=== PATIENT | female | born 1995 | race Caucasian/White ===

== ENCOUNTER 2019-10-05 16:17 | Emergency (ER) | payer OTHER, SELFPAY ==
--- NOTE | ~2019-10-05 | CT_ITS ---
EXAMINATION: CT abdomen pelvis w con DATE: 10/05/2019 17:45 INDICATION: Generalized abdominal pain TECHNIQUE: Computed tomography (CT) of the abdomen and pelvis was performed with 100 cc Omnipaque 350 intravenous contrast. Automated exposure control and iterative reconstruction technique were employe lala. Exam dose: 548.12 mGy-cm total exam DLP. COMPARISON: 07/24/2016 CT abdomen pelvis 05/29/2018 obstructive series FINDINGS: The lung bases are clear. Normal heart size. No pericardial or pleural effusion. The gallbladder is present. No bile duct or pancreatic duct dilatation. The liver, spleen, pancreas, and adrenal glands and kidneys are unremarkable. No urinary tract calcul us or hydroureteronephrosis. Normal caliber of the abdominal aorta. No intraperitoneal or retroperitoneal or pelvic mass lesion or adenopathy or ascites. The uterus contains an IUD. The uterus, adnexal areas and urinary bladder are otherwise unremarkable. No bowel obstruction or intraperitoneal free air is detected. No evidence of appendicitis. Included skeletal structures are unremarkable. IMPRESSION: IUD within uterus No significant abnormality Reviewed, dictated and finalized at [facility]. Reviewed, dictated and finalized at location [facility].
[2019-10-05 16:19] VITALS: BP 136/86; PULSE 86; RESP 20; TEMP 37.3; O2SAT 99
--- NOTE | 2019-10-05 16:23 | ED.ABDPAIN ---
HPI - Abdominal Pain General Chief Complaint: Abdominal Pain Stated Complaint: DEHYDRATION, ABD PAIN Time Seen by Provider: 10/05/19 16:22 Source: patient Mode of arrival: ambulatory Limitations: no limitations History of Present Illness HPI narrative: A 23 y/o female presents to the ED with c/o diffuse ABD pain. Pt states that she has a PMHx of IBS and usually has constipation with her IBS. Today, the patient started to have ABD pain and N/V/D. She vomited 3 times today and had 2 episodes of diarrhea. She also notes that when she woke up today she had a rash on her bilateral eyelids. Pt has allergies to pine trees and acne medication, but does not state that she has been in contact with either of them recently. The rash is not itchy or painful, and it has progressively worsened throughout the day. She adds that when she has an allergic reaction it is usually sinus congestion, and she has never had a rash before. Pt reports dizziness. She states that she has gallbladder issues and her menstrual cycle is supposed to start today. Pt reports that she has had slightly higher stress in her life recently. MD elicited complaint: abdominal pain (Diffuse) Pertinent past history: constipation and other (IBS) Onset (ago): hour(s) (Today) Pain Consistency: constant Location: diffuse Associated symptoms: nausea, vomiting, diarrhea and other (Rash, dizziness) Related Data Allergies Allergy/AdvReac Type Severity Reaction Status Date / Time No Known Allergies Allergy Unverified 05/29/18 21:18 Review of Systems Review of Systems: All systems reviewed & are unremarkable except as noted in HPI and below Gastrointestinal: Gastrointestinal: Reports abdominal pain (Diffuse), Reports diarrhea, Reports nausea and Reports vomiting Integumentary/Breasts: Skin/Breast: Reports rash Neurologic: Reports dizziness PMFSH Past Medical History Medical History (Updated 10/05/19 @ 19:00 by Leilani Juárez MD) Anxiety Depression IBS (irritable bowel syndrome) Surgical History Surgical History (Updated 10/05/19 @ 16:25 by Tanika Fernández) History of tonsillectomy Social History Social History (Updated 10/05/19 @ 16:30 by Tanika Fernández) Smoking status: Never smoker Alcohol intake: current Alcohol use details: Occasional Exam Narrative: Exam Narrative: General appearance: Well-developed, well-nourished Skin: Normal color Head: Normocephalic, nontraumatic Eyes: Clear conjunctiva ENT: Oropharynx normal, ears normal, nose normal Neck: Supple, nontender Chest and respiratory: Airway patent, no respiratory distress, no accessory muscle use Heart: Regular rate/rhythm Abdomen: Soft, nontender, no organomegaly, quiet bowel sounds Vascular: Normal peripheral pulses, normal capillary refill. 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 Labs, CT abdomen and pelvis with IV contrast, UA ordered. Further plan to follow Differential Diagnosis Differential diagnosis: Likely abdominal pa
[2019-10-05 16:46] LABS: Basophils Absolute Auto 0.1 K/mm3 (0.0-0.1); Basophils Percent Auto 0.7 % (0.2-1.2); Eosinophils Absolute Auto 0.2 K/mm3 (0-0.3); Eosinophils Percent Auto 1.6 % (0-4.4); Hematocrit 43.3 % (37.0-47.0); Hemoglobin 14.3 g/dL (12.0-15.0); Immature Granulocyte Absolute 0.03 K/mm3 (0.00-0.031); Immature Granulocyte Percent A 0.3 % (0-0.5); Lymphocytes Absolute Auto 1.29 K/mm3 (0.9-3.2); Lymphocytes Percent Auto 12.6 % (18.3-44.2); Mean Corpuscular Hemoglobin 30.6 pg (26-34); Mean Corpuscular Volume 92.7 fl (80-100); Mean Platelet Volume 10.3 fl (7.4-10.4); Monocytes Absolute Auto 0.7 K/mm3 (0.1-0.6); Monocytes Percent Auto 6.4 % (2.6-8.5); Neutrophils Absolute Auto 8.1 K/mm3 (1.3-6.7); Neutrophils Percent Auto 78.4 % (45.5-73.1); Platelet Count Result 309 k/mm3 (150-375); Red Blood Count 4.67 M/mm3 (4.2-5.4); Red Cell Distribution Width 12.9 % (11.5-14.5); White Blood Count 10.3 K/mm3 (4.5-10.0)
[2019-10-05 16:57] LABS: Alanine Aminotransferase 21 U/L (4-35); Albumin Level 4.7 g/dL (3.5-5.1); Alkaline Phosphatase 113 U/L (38-126); Aspartate Amino Transferase 24 U/L (14-36); Bilirubin,Total 0.3 mg/dL (0.2-1.3); Blood Urea Nitrogen 8 mg/dL (7-17); Carbon Dioxide 24 mmol/L (22-30); Chloride 105 mmol/L (98-107); Estimated CRCL calculation 135 ml/min; Estimated Glomerular Filt Rate > 60; Glucose 93 mg/dL (65-105); Lipase 39 U/L (23-300); Potassium 4.2 mmol/L (3.4-5.0); Sodium 139 mmol/L (137-145)
[2019-10-05 17:05] LABS: Add Urine Microscopic? YES; Appearance Urine Clear (Clear); Bacteria Urine Trace /hpf; Bilirubin Urine Negative (Negative); Blood Urine Negative (Negative); Color Urine Yellow (Yellow); Glucose Urine UA Negative (Negative); Ketones Urine Negative (Negative); Leukocyte Esterase Ur Negative LEU/UL (Negative); Mucus Urine Rare /lpf; Nitrate Urine Negative (Negative); Protein Urine 2+ mg/dL (Negative); RBC Urine 0-2 /hpf (0-2); Specific Grav Ur 1.023 (1.001-1.035); Squamous Epithelial Cell Urine Rare /hpf (Few); Urobilinogen Urine Negative mg/dL (<2.0); WBC Urine 0-3 /hpf
[2019-10-05] MEDS: SODIUM CHLORIDE 0.9% IV 1,000 ML 999 ML IV CONT (17:41)
== END 2019-10-05 19:14 | disposition home or self-care (01) ==
PROVIDERS: Emergency Provider Emergency Medicine
DX: R10.84 Generalized abdominal pain (principal); K58.9 Irritable bowel syndrome, unspecified
CPT/HCPCS: 36415; 74177; 80053; 81001; 81025; 83690; 85025; 99284; J7030; Q9967

== ENCOUNTER 2020-04-27 15:42 | Outpatient (CLI) | payer OTHER, SELFPAY ==
[2020-04-27 16:03] LABS: Basophils Absolute Auto 0.1 K/mm3 (0.0-0.1); Basophils Percent Auto 0.8 % (0.2-1.2); Eosinophils Absolute Auto 0.2 K/mm3 (0-0.3); Eosinophils Percent Auto 2.9 % (0-4.4); Hematocrit 39.6 % (37.0-47.0); Hemoglobin 13.2 g/dL (12.0-15.0); Immature Granulocyte Absolute 0.02 K/mm3 (0.00-0.031); Immature Granulocyte Percent A 0.3 % (0-0.5); Immature Reticulocyte Fraction 8.7 % (3.0-15.9); Lymphocytes Absolute Auto 1.15 K/mm3 (0.9-3.2); Lymphocytes Percent Auto 17.6 % (18.3-44.2); Mean Corpuscular HGB Conc 33.3 g/dl (32-36); Mean Corpuscular Hemoglobin 30.6 pg (26-34); Mean Corpuscular Volume 91.7 fl (80-100); Mean Platelet Volume 10.2 fl (7.4-10.4); Monocytes Absolute Auto 0.5 K/mm3 (0.1-0.6); Monocytes Percent Auto 7.5 % (2.6-8.5); Neutrophils Absolute Auto 4.7 K/mm3 (1.3-6.7); Neutrophils Percent Auto 70.9 % (45.5-73.1); Platelet Count Result 261 k/mm3 (150-375); Red Blood Count 4.32 M/mm3 (4.2-5.4); Red Cell Distribution Width 12.8 % (11.5-14.5); Reticulocyte Hemoglobin Conten 35.2 pg (28.2-35.7); Reticulocyte Percent 1.69 % (0.7-4.3); Reticulocytes Absolute 0.07 B/L (32.2-175.7); White Blood Count 6.6 K/mm3 (4.5-10.0)
[2020-04-27 17:04] LABS: Iron 78 ug/dL (37-170)
[2020-04-27 17:06] LABS: Alanine Aminotransferase 15 U/L (4-35); Albumin Level 4.1 g/dL (3.5-5.1); Alkaline Phosphatase 81 U/L (38-126); Anion Gap 10 mmol/L (8-16); Aspartate Amino Transferase 17 U/L (14-36); Bilirubin,Total 0.3 mg/dL (0.2-1.3); Blood Urea Nitrogen 7 mg/dL (7-17); Calcium 9.3 mg/dL (8.4-10.2); Carbon Dioxide 22 mmol/L (22-30); Chloride 106 mmol/L (98-107); Estimated Glomerular Filt Rate > 60; Glucose 86 mg/dL (65-105); Lactate Dehydrogenase 332 U/L (313-618); Sodium 138 mmol/L (137-145)
[2020-04-27 17:16] LABS: Percent Iron Saturation 20 % (20-50)
[2020-04-27 18:14] LABS: Folic Acid 12.9 ng/mL (2.76->20)
[2020-05-03 15:58] LABS: Soluble Transferrin Receptor 1.44 mg/L (0.76-1.76)
== END 2020-04-27 15:43 | disposition home or self-care (01) ==
LOC: ANHLAB 15:44
PROVIDERS: Visit Provider Internal Medicine Hematology & Oncology
DX: D64.9 Anemia, unspecified (principal)
CPT/HCPCS: 36415; 80053; 82607; 82728; 82746; 83540; 83550; 83615; 84238; 85025; 85046

== ENCOUNTER 2020-06-08 12:44 | Outpatient (CLI) | payer OTHER, SELFPAY ==
--- NOTE | ~2020-06-08 | US_ITS ---
EXAMINATION: US thyroid EXAM DATE: 06/08/2020 13:33 INDICATION: Cold intolerance, fatigue and hypothyroidism. TECHNIQUE: Multiple grayscale and Doppler images of the thyroid were obtained (by a technologist who performed the scan) and subsequently reviewed. Individual nodules and recommendations may be reporte d in accordance with TI-RADS system as designated by the 2017 ACR White Paper TI-RADS committee. The re is no prior study for comparison. FINDINGS: The right thyroid lobe measures 4.3 x 1.5 x 2.1 cm, the left measuring 4.3 x 1.7 x 1.8 cm. There is d iffusely heterogeneous thyroid echogenicity with expected amount of vascularity. No definite focal no dule identified. IMPRESSION: 1. Mild thyromegaly. Reviewed, dictated and finalized at location [facility]. GER WEB IMPRESSION: 1. Mild thyromegaly.
[2020-06-12 06:13] LABS: Thyroid Peroxidase Antibodies 159 IU/mL (<9)
[2020-06-12 12:07] LABS: Triiodothyronine T3 Free 3.1 pg/mL (2.3-4.2)
== END 2020-06-08 12:45 | disposition home or self-care (01) ==
PROVIDERS: PCP Emergency Medicine; Visit Provider Emergency Medicine
DX: E03.9 Hypothyroidism, unspecified (principal); K59.00 Constipation, unspecified; R53.83 Other fatigue; E04.9 Nontoxic goiter, unspecified
CPT/HCPCS: 36415; 76536; 84481; 86376

== ENCOUNTER 2021-08-16 23:35 | Emergency (ER) | payer OTHER, SELFPAY ==
--- NOTE | ~2021-08-16 | CT_ITS ---
EXAMINATION: CT abdomen pelvis w con EXAM DATE: 08/17/2021 01:54 INDICATION: RLQ pain X 10 HRS. TECHNIQUE: Spiral CT of the abdomen and pelvis was performed following intravenous injection of 100 m L Omnipaque 350. Axial, coronal and sagittal images of the abdomen and pelvis were reviewed. The do se-length product (DLP) for this examination was 614.68 mGy-cm. The exposure was tailored according to patient size (auto mA exposure control), and iterative reconstruction (ASIR) was used as additiona l dose reduction technique. Comparison is made to prior examination from 10/05/2019. FINDINGS: The liver, spleen, adrenal glands and pancreas are unremarkable. Gallbladder is unremarkab le. No biliary obstruction. Portal and splenic veins are patent. Kidneys enhance symmetrically. T here is no hydronephrosis. There is IUD which appears to be centrally located within the endometriu m, expected position. The bladder is unremarkable. There is no retroperitoneal or pelvic lymphadeno pat. The appendix is normal. The stomach and small bowel are unremarkable. There is expected amount of c olonic stool. No free intraperitoneal gas. The heart is normal in size. There are no pericardial or pleural effusions. The lung bases are unremarkable. The bones are unremarkable. IMPRESSION: 1. No acute intra-abdominal findings. Reviewed, dictated and finalized at location [facility]. 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
[2021-08-16 23:41] VITALS: BP 143/67; PULSE 62; RESP 16; TEMP 36.4; O2SAT 100
--- NOTE | 2021-08-17 01:13 | ED.GENADULT ---
HPI - General Adult General Chief complaint: Abdominal Pain Stated complaint: pelvic pain since 4pm Time Seen by Provider: 08/17/21 00:46 History of Present Illness HPI narrative: Patient 25-year-old female who presents the emergency department with chief complaint of right-sided abdominal pain. Patient states that she was at work and not doing anything strenuous and had sudden onset of pain in the right lower quadrant/right lower pelvis area patient states it radiates to her back and radiates to the left lower quadrant. Patient reports that she has an IUD in place and does not have periods denies any significant change in her vaginal discharge patient denies vomiting reports that she had some loose stool yesterday but reports that she has history of IBS-C patient reports no prior abdominal surgery history Related Data Allergies Allergy/AdvReac Type Severity Reaction Status Date / Time No Known Allergies Allergy Verified 08/16/21 23:45 Review of Systems Review of Systems: A 10 system review of systems was completed on the patient and is negative except for what is stated in the HPI. Nursing and ancillary documentation was reviewed. [facility] Past Medical History Medical History Anxiety Depression IBS (irritable bowel syndrome) Surgical History Surgical History History of tonsillectomy Social History Social History Smoking status: Never smoker Alcohol intake: current Alcohol use details: Occasional Exam Narrative: GENERAL: Well-appearing, well-nourished, and in no acute distress. HEAD: Normocephalic, atraumatic. EYES: PERRLA and EOMI. ENT: Nares clear, no rhinorrhea or epistaxis. Mucous membranes moist. NECK: Supple. CHEST: Clear to auscultation. No respiratory distress. HEART: Regular rate and rhythm. No murmur heard. Normal peripheral pulses. ABDOMEN: Soft, right lower quadrant tenderness, nondistended, normal active bowel sounds. EXTREMITIES: Normal range of motion. No edema. SKIN: Warm, dry, no rash. NEURO: No focal deficits. Alert and oriented x3. PSYCH: Normal mood and affect. Course Course Emergency Course: CT scan shows no evidence of appendicitis there is evidence of diverticulosis without diverticulitis IUD is in place no large ovarian cyst Vital Signs Vital signs: Vital Signs Temperature 36.4 C 08/16/21 23:41 Pulse Rate 62 08/16/21 23:41 Respiratory Rate 16 08/16/21 23:41 Blood Pressure 143/67 H 08/16/21 23:41 Pulse Oximetry 100 08/16/21 23:41 Temperature 36.4 C 08/16/21 23:41 Pulse Rate 62 08/16/21 23:41 Respiratory Rate 16 08/16/21 23:41 Blood Pressure 143/67 H 08/16/21 23:41 Pulse Oximetry 100 08/16/21 23:41 Medical Decision Making Vital Signs Vital Signs: Vital Signs Temperature 36.4 C 08/16/21 23:41 Pulse Rate 62 08/16/21 23:41 Respiratory Rate 16 08/16/21 23:41 Blood Pressure 143/67 H 08/16/21 23:41 Pulse Oximetry 100 08/16/21 23:41 Temperature 36.4 C 08/16/21 23:41 Pulse Rate 62 08/16/21 23:41 Respiratory Rate 16 08/16/21 23:41 Blood Pressure 143/67 H 08/16/21 23:41 Pulse Oximetry 100 08/16/21 23:41 Lab Data Result diagrams: 08/17/21 01:15 08/17/21 01:15 Labs: Lab Results 08/17/21 08/17/21 08/17/21 Range/Units 01:15 01:15 01:15 WBC 10.4 H (4.5-10.0) K/mm3 RBC 4.63 (4.2-5.4) M/mm3 Hgb 14.5 (12.0-15.0) g/dL Hct 43.5 (37.0-47.0) % MCV 94.0 (80-100) fl MCH 31.3 (26-34) pg MCHC 33.3 (32-36) g/dl RDW 12.6 (11.5-14.5) % Plt Count 330 (150-375) k/mm3 MPV 10.3 (7.4-10.4) fl Immature Gran % (Auto) 0.4 (0-0.5) % Neut % (Auto) 57.4 (45.5-73.1) % Lymph % (Auto) 31.9 (18.3-44.2) % Ada % (Auto) 6.5 (2.6-8.5) % Eos % (Au
[2021-08-17] MEDS: SODIUM CHLORIDE 0.9% IV 1,000 ML 999 ML IV CONT (01:15)
[2021-08-17 01:21] LABS: Basophils Absolute Auto 0.1 K/mm3 (0.0-0.1); Basophils Percent Auto 0.7 % (0.2-1.2); Eosinophils Absolute Auto 0.3 K/mm3 (0-0.3); Eosinophils Percent Auto 3.1 % (0-4.4); Hematocrit 43.5 % (37.0-47.0); Hemoglobin 14.5 g/dL (12.0-15.0); Immature Granulocyte Absolute 0.04 K/mm3 (0.00-0.031); Immature Granulocyte Percent A 0.4 % (0-0.5); Lymphocytes Absolute Auto 3.31 K/mm3 (0.9-3.2); Lymphocytes Percent Auto 31.9 % (18.3-44.2); Mean Corpuscular HGB Conc 33.3 g/dl (32-36); Mean Corpuscular Hemoglobin 31.3 pg (26-34); Mean Platelet Volume 10.3 fl (7.4-10.4); Monocytes Absolute Auto 0.7 K/mm3 (0.1-0.6); Monocytes Percent Auto 6.5 % (2.6-8.5); Neutrophils Percent Auto 57.4 % (45.5-73.1); Platelet Count Result 330 k/mm3 (150-375); Red Blood Count 4.63 M/mm3 (4.2-5.4); Red Cell Distribution Width 12.6 % (11.5-14.5); White Blood Count 10.4 K/mm3 (4.5-10.0)
[2021-08-17 01:31] LABS: Alanine Aminotransferase 18 U/L (4-35); Alkaline Phosphatase 100 U/L (38-126); Anion Gap 10 mmol/L (8-16); Aspartate Amino Transferase 20 U/L (14-36); Bilirubin,Total 0.3 mg/dL (0.2-1.3); Blood Urea Nitrogen 11 mg/dL (7-17); Calcium 9.7 mg/dL (8.4-10.2); Carbon Dioxide 25 mmol/L (22-30); Chloride 103 mmol/L (98-107); Estimated CRCL calculation 100 ml/min; Estimated Glomerular Filt Rate > 60; Glucose 93 mg/dL (65-110); Lipase 74 U/L (23-300); Potassium 3.5 mmol/L (3.4-5.0); Sodium 138 mmol/L (137-145)
[2021-08-17 01:41] LABS: Add Urine Microscopic? YES; Appearance Urine Clear (Clear); Bacteria Urine Trace /hpf; Bilirubin Urine Negative (Negative); Blood Urine 2+ (Negative); Color Urine Yellow (Yellow); Glucose Urine UA Negative (Negative); Ketones Urine Negative (Negative); Leukocyte Esterase Ur Trace LEU/UL (Negative); Mucus Urine Few /lpf; Nitrate Urine Negative (Negative); Protein Urine Negative (Negative); RBC Urine 0-2 /hpf (0-2); Specific Grav Ur 1.025 (1.001-1.035); Squamous Epithelial Cell Urine Moderate /hpf (Few); Urobilinogen Urine Negative mg/dL (<2.0)
[2021-08-17] MEDS: CEPHALEXIN 500 MG CAPSULE PO (02:59)
[2021-08-17 03:05] VITALS: BP 138/94; PULSE 68; RESP 14; O2SAT 98
== END 2021-08-17 03:05 | disposition home or self-care (01) ==
PROVIDERS: Emergency Provider Emergency Medicine
DX: N30.00 Acute cystitis without hematuria (principal); R10.84 Generalized abdominal pain; Z97.5 Presence of (intrauterine) contraceptive device; K58.9 Irritable bowel syndrome, unspecified
CPT/HCPCS: 36415; 74177; 80053; 81001; 81025; 83690; 85025; 87086; 87088; 96360; 99284; A9270; J7030; Q9967

== ENCOUNTER 2022-05-29 21:39 | Emergency (ER) | payer OTHER, MEDICAID, SELFPAY ==
--- NOTE | ~2022-05-29 | US_ITS ---
EXAMINATION: US OB <=14 wk fetus w TV DATE: 05/30/2022 01:43 INDICATION: Right-sided pelvic pain TECHNIQUE: Real-time pelvic ultrasound utilizing both a transvaginal and transabdominal probe was pe rformed. The interpreting radiologist was not present for the study. COMPARISON: None. FINDINGS: The uterus measures 8.4 x 6.5 x 5.4 cm. There is an intrauterine gestational sac. A yolk sac and fet al pole are identified. The crown rump length measures 10 mm, which correlates with an estimated gest ational age of 7 weeks and 1 days. heart motion is identified measuring 157 beats per minute (b pm) by M-mode Doppler. 1.7 x 0.5 x 0.8 cm subchorionic hematoma. The right ovary measures 3.5 x 1.8 x 2.1 cm. The left ovary measures 3.2 x 1.3 x 1.9 cm. A few subcen timeter anechoic bilateral ovarian cysts/follicles. Vascular flow with arterial waveforms identified in both ovaries on color Doppler. There is no free fluid in the pelvis. IMPRESSION: 1. Single living fetus with heart rate of 157 bpm. 2. Gestational age by ultrasound of 7 weeks 1 day(s) +/- 5 day(s) with ultrasound estimated date of delivery (AYLEEN) of 01/15/2023. 3. Small subchorionic hematoma. Reviewed, dictated and finalized at location [facility]. BLENDER IMPRESSION: 1. Single living fetus with heart rate of 157 bpm. 2. Gestational age by ultrasound of 7 weeks 1 day(s) +/- 5 day(s) with ultraso und estimated date of delivery (AYLEEN) of 01/15/2023. 3. Small subchorionic hematoma.
[2022-05-29 22:09] VITALS: BP 130/87; PULSE 87; RESP 17; TEMP 37.4; O2SAT 99
[2022-05-29 22:25] LABS: Basophils Absolute Auto 0.1 K/mm3 (0.0-0.1); Basophils Percent Auto 0.6 % (0.2-1.2); Eosinophils Absolute Auto 0.2 K/mm3 (0-0.3); Eosinophils Percent Auto 2.6 % (0-4.4); Hematocrit 38.6 % (37.0-47.0); Hemoglobin 13.1 g/dL (12.0-15.0); Immature Granulocyte Absolute 0.03 K/mm3 (0.00-0.031); Immature Granulocyte Percent A 0.3 % (0-0.5); Lymphocytes Absolute Auto 2.23 K/mm3 (0.9-3.2); Lymphocytes Percent Auto 25.7 % (18.3-44.2); Mean Corpuscular HGB Conc 33.9 g/dl (32-36); Mean Corpuscular Hemoglobin 31.3 pg (26-34); Mean Corpuscular Volume 92.1 fl (80-100); Mean Platelet Volume 10.1 fl (7.4-10.4); Monocytes Absolute Auto 0.6 K/mm3 (0.1-0.6); Neutrophils Absolute Auto 5.5 K/mm3 (1.3-6.7); Neutrophils Percent Auto 63.8 % (45.5-73.1); Platelet Count Result 288 k/mm3 (150-375); Red Blood Count 4.19 M/mm3 (4.2-5.4); White Blood Count 8.7 K/mm3 (4.5-10.0)
[2022-05-29 22:36] LABS: Appearance Urine Clear (Clear); Bilirubin Urine Negative (Negative); Blood Urine Negative (Negative); Color Urine Yellow (Yellow); Glucose Urine UA Negative (Negative); Ketones Urine Negative (Negative); Leukocyte Esterase Ur Trace LEU/UL (Negative); Nitrate Urine Negative (Negative); Protein Urine Negative (Negative); Specific Grav Ur <= 1.005 (1.001-1.035); Urobilinogen Urine 0.2 mg/dL (<2.0)
[2022-05-29 22:42] LABS: Bacteria Urine Trace /hpf; RBC Urine 0-2 /hpf (0-2); Squamous Epithelial Cell Urine Rare /hpf (Few); WBC Urine 0-3 /hpf
[2022-05-29 22:57] LABS: Add Urine Microscopic? YES
--- NOTE | 2022-05-30 00:14 | ED.PREGNANCY ---
HPI - General Chief complaint: Vaginal Bleeding <REGGIE Zeng Last Filed: 05/30/22 03:21> Stated complaint: pelvic pain /spotting/ 8 weeks <REGGIE Zeng Last Filed: 05/30/22 03:21> Time Seen by Provider: 05/30/22 00:00 <REGGIE Zeng Last Filed: 05/30/22 03:21> Source: patient <REGGIE Zeng Last Filed: 05/30/22 03:21> Mode of arrival: ambulatory <REGGIE Zeng Last Filed: 05/30/22 03:21> Limitations: no limitations <REGGIE Zeng Last Filed: 05/30/22 03:21> History of Present Illness HPI Narrative: This is a 26-year-old that presents emergency department for right-sided pelvic pain. Reports she has had pelvic pain over the last couple of days. Today it started to localize to right. It radiates into her back. The pain is dull and achy in nature. She has had some vaginal spotting today. Reports she is currently about 8 weeks . She has not had an ultrasound or seen her OB yet this . Denies fevers, vomiting, or dysuria. <REGGIE Zeng Last Filed: 05/30/22 03:21> Related Data Home medications: Home Medications Medication Instructions Recorded Confirmed No Home Medications 05/29/22 05/29/22 <REGGIE Zeng Last Filed: 05/30/22 03:21> Allergies/Adverse reactions: Allergies Allergy/AdvReac Type Severity Reaction Status Date / Time No Known Allergies Allergy Verified 05/29/22 22:13 <REGGIE Zeng Last Filed: 05/30/22 03:21> Review of Systems Review of Systems: CONSTITUTIONAL: Denies fever ENT: Denies sore throat CARDIOVASCULAR: Denies edema. RESPIRATORY: Denies dyspnea. GASTROINTESTINAL: Reports pelvic pain. Denies vomiting GENITOURINARY: Denies dysuria or hematuria. SKIN: Denies rash MUSCULOSKELETAL: Reports back pain NEUROLOGIC: Denies weakness. PSYCHIATRIC: Reports anxiety <Felicita Vaughn PA-C - Last Filed: 05/30/22 03:21> All systems reviewed & are unremarkable except as noted in HPI and below <Felicita Vaughn PA-C - Last Filed: 05/30/22 03:21> PMFSH Past Medical History Medical History: Medical History Anxiety Depression IBS (irritable bowel syndrome) <Felicita Vaughn PA-C - Last Filed: 05/30/22 03:21> Surgical History Surgical History: Surgical History History of tonsillectomy <Felicita Vaughn PA-C - Last Filed: 05/30/22 03:21> Social History Social History: Social History Smoking status: Never smoker Alcohol intake: current Alcohol use details: Occasional <Felicita Vaughn PA-C - Last Filed: 05/30/22 03:21> Exam Narrative: GENERAL: Well-appearing, well-nourished, and in no acute distress. HEAD: Normocephalic, atraumatic. EYES: EOMI. CHEST: Clear to auscultation. No respiratory distress. No wheezes rales or rhonchi HEART: Regular rate and rhythm. No murmur heard. Normal peripheral pulses. ABDOMEN: Soft, nontender, nondistended, normal active bowel sounds. No CVA tenderness EXTREMITIES: Normal range of motion. No edema. SKIN: Warm, dry, no rash. NEURO: No focal deficits. Alert and oriented x3. PSYCH: Normal mood and affect PELVIC: Normal external genitalia. Mild cervical irritation with scant bleeding. <Felicita Vaughn PA-C - Last Filed: 05/30/22 03:21> Course INVENTORY CONTROL ASSOCIATE/PA Physician Supervision For this encounter, I have reviewed the mid-level provider documentation, treatment plan and medical decision making. I have had [id number] time with the patient. Physical exam revealed well-appearing female. Patient has mild tenderness in the right adnexal area. Rule out ectopic ultrasound was ordered. Revealed a single living fetus heart rate 157. There is a subchorionic hemorrh
[2022-05-30] MEDS: RHO(D) IMMUNE GLOBULIN 300 MCG/2 ML SYRINGE IM (02:49)
[2022-05-30 03:30] VITALS: BP 119/68; PULSE 68; RESP 16; TEMP 36.6; O2SAT 100
== END 2022-05-30 03:30 | disposition home or self-care (01) ==
PROVIDERS: Physician Assistant; Emergency Provider Emergency Medicine
DX: O26.891 Other specified pregnancy related conditions, first trimester (principal); R10.2 Pelvic and perineal pain; K58.9 Irritable bowel syndrome, unspecified; O99.611 Diseases of the digestive system complicating pregnancy, first trimester; Z3A.08 8 weeks gestation of pregnancy
CPT/HCPCS: 36415; 76801; 76817; 81001; 81025; 84702; 85025; 85461; 86850; 86900; 86901; 90384; 96372; 99284; J2790

== ENCOUNTER 2022-06-05 14:49 | Emergency (ER) | payer OTHER, MEDICAID, SELFPAY ==
[2022-06-05 15:10] VITALS: BP 139/67; PULSE 85; RESP 16; TEMP 37.1; O2SAT 100
--- NOTE | 2022-06-05 17:20 | ED.PREGNANCY ---
HPI - General Chief complaint: Vaginal Bleeding Stated complaint: complication, 9 weeks with bleeding Time Seen by Provider: 06/05/22 16:46 History of Present Illness HPI Narrative: Patient is a 26-year-old female who presents ER with vaginal bleeding. She has been having spotting over the last week. She was seen in the ER and received RhoGAM 1 week ago. She has intermittent pelvic cramping. She has a known IUP with a small subchorionic hemorrhage. She is blood type O-. Her spotting increased today so she have to come in for further evaluation. She has been having a yellow and clear discharge as well. Her OB is Dr. Glasgow. Related Data Home Medications Medication Instructions Recorded Confirmed prenat.vits,larissa,ffe-[id number] 1 tablet PO DAILY 05/31/22 Allergies Allergy/AdvReac Type Severity Reaction Status Date / Time No Known Allergies Allergy Verified 06/05/22 17:18 Review of Systems Review of Systems: All systems reviewed & are unremarkable except as noted in HPI and below Constitutional: Constitutional: Denies chills, Denies fatigue and Denies fever(s) ENT: Denies nasal congestion and Denies sore throat Cardiovascular: Cardiovascular: Denies chest pain, Denies rapid heart rate and Denies radiating jaw, neck or arm pain Gastrointestinal: Gastrointestinal: Denies abdominal pain, Denies nausea and Denies vomiting Genitourinary: Genitourinary: Reports abnormal vaginal bleeding, Denies hematuria, Denies nocturia, Reports pelvic pain (occassional) and Reports vaginal discharge PMFSH Past Medical History Medical History (Updated 06/05/22 @ 17:44 by Maxwell Brito MD) ADHD Anxiety Depression GERD (gastroesophageal reflux disease) Fabian's disease IBS (irritable bowel syndrome) Surgical History Surgical History History of tonsillectomy Family History Family History (Updated 05/31/22 @ 15:10 by Sobia March CMA) Father Adenocarcinoma Social History Social History (Updated 05/31/22 @ 15:10 by Sobia March CMA) Smoking status: Never smoker Alcohol intake: never Alcohol use details: Occasional Substance use: never Gender identity (if verbalized by the patient): Female Sexual Orientation (if Verbalized by the Patient): Straight or Heterosexual Exam Narrative: GENERAL: Well-appearing, well-nourished, and in no acute distress. HEAD: Normocephalic, atraumatic. CHEST: Clear to auscultation. No respiratory distress. HEART: Regular rate and rhythm. Normal peripheral pulses. ABDOMEN: Soft, nontender, nondistended. : Normal external genitalia. Moderate amount of discharge within the vagina, cervix closed without bleeding. There does seem to be some irritation near the os. EXTREMITIES: Normal range of motion. No edema. SKIN: Warm, dry, no rash. NEURO: Alert and oriented x3. PSYCH: Normal mood and affect. Course Course Emergency Course: Discussed case with Dr. Enriquez. She would like patient to receive MetroGel for 5 nights. She would also like the patient to call the office tomorrow as they will likely be able to schedule her for ultrasound on Monday. Discussed with patient that she would be given diagnosis of threatened miscarriage due to the fact that she is having bleeding and . No need for additional RhoGAM as she had a 1 week ago. Attempted bedside ultrasound of this early but cannot identify it. Because patient had a known IUP 1 week ago we cannot call in ultrasound for additional evaluation. Vital Signs Vital signs: Vital Signs Temperature 98.7 F 06/05/22 15:10 Pulse Rate 85 06/05/22 15:10 Respiratory Rate 16 06/05/22 15:10 Blood Pressure 139/67 06/05/22 15:10 Pulse Oximetry 100 06/05/22 15:10 Oxygen Delivery Room Air 06/05/22 15:10 Temperature 98.7 F 06/05/22 15:10 Pulse Rate 85 06/05/22 15:10 Respiratory Rate 16 06/05/22 15:10
[2022-06-05 17:57] VITALS: BP 118/68; PULSE 77; RESP 18; O2SAT 100
== END 2022-06-05 18:00 | disposition home or self-care (01) ==
PROVIDERS: Emergency Provider Emergency Medicine
DX: O20.0 Threatened abortion (principal); O23.591 Infection of other part of genital tract in pregnancy, first trimester; B96.89 Other specified bacterial agents as the cause of diseases classified elsewhere; O99.281 Endocrine, nutritional and metabolic diseases complicating pregnancy, first trimester; E06.3 Autoimmune thyroiditis; O99.611 Diseases of the digestive system complicating pregnancy, first trimester; K21.9 Gastro-esophageal reflux disease without esophagitis; K58.9 Irritable bowel syndrome, unspecified; Z3A.09 9 weeks gestation of pregnancy
CPT/HCPCS: 99284

== ENCOUNTER 2022-06-17 13:34 | Outpatient (CLI) | payer OTHER, MEDICAID, SELFPAY ==
[2022-06-17 15:01] LABS: HIV 1/2 Ab P24 Ag Result Negative (Negative)
[2022-06-20 12:44] LABS: Rapid Plasma Reagin Non-Reactive (NonReactive)
[2022-06-21 09:13] LABS: CMV IgG Antibody <0.60 U/mL (<0.60)
[2022-06-23 20:43] LABS: SMA 2.0 RISK VARIANT NOT DETECTED
[2022-06-25 16:18] LABS: CF Result NEGATIVE (NEGATIVE)
[2022-07-13 15:41] LABS: SMA Results Received Yes
== END 2022-06-17 13:35 | disposition home or self-care (01) ==
PROVIDERS: Visit Provider Student in an Organized Health Care Education/Training Program
DX: Z34.90 Encounter for supervision of normal pregnancy, unspecified, unspecified trimester (principal)
CPT/HCPCS: 36415; 81220; 81329; 86592; 86644; 86703; 86747; G0432

== ENCOUNTER 2022-07-19 16:27 | Outpatient (CLI) | payer OTHER, MEDICAID, SELFPAY | END 2022-07-19 16:28 | disposition home or self-care (01) | LOC: ANHLAB 16:29 | PROVIDERS: Visit Provider Student in an Organized Health Care Education/Training Program | DX: R30.0 Dysuria (principal) | CPT/HCPCS: 87086; 87088 ==

== ENCOUNTER 2022-08-11 14:22 | Outpatient (CLI) | payer OTHER, MEDICAID, SELFPAY ==
[2022-08-19 07:56] LABS: AFP, Serum 27.1; hCG MoM 0.93; hCG, Serum 20.3
[2022-08-19 07:57] LABS: Estriol, Free 1.27; Inhibin A, Dimeric 162; Maternal Weight 186
[2022-08-19 07:58] LABS: Cigarette Smoker No; Number of Fetuses Not Given
[2022-08-19 11:35] LABS: IVFPREG? No
== END 2022-08-11 14:23 | disposition home or self-care (01) ==
LOC: ANHLAB 14:24
PROVIDERS: Visit Provider Obstetrics & Gynecology
DX: Z34.90 Encounter for supervision of normal pregnancy, unspecified, unspecified trimester (principal); Z3A.00 Weeks of gestation of pregnancy not specified
CPT/HCPCS: 36415; 82105; 82677; 84702; 86336

== ENCOUNTER 2022-10-09 19:08 | Observation (INO) | payer OTHER, MEDICAID, SELFPAY ==
[2022-10-09 19:40] VITALS: BP 138/82; PULSE 87
[2022-10-09 19:46] VITALS: BP 113/68; PULSE 87
[2022-10-09 20:01] VITALS: BP 120/68; PULSE 76
[2022-10-09 20:15] VITALS: BP 123/73; PULSE 80
[2022-10-09 20:30] VITALS: BP 125/81; PULSE 88
[2022-10-09 20:45] VITALS: BP 126/73; PULSE 84
[2022-10-09 21:45] LABS: Appearance Urine Clear (Clear); Bacteria Urine Rare /hpf; Bilirubin Urine Negative (Negative); Blood Urine Negative (Negative); Color Urine Yellow (Yellow); Glucose Urine UA Negative (Negative); Ketones Urine Negative (Negative); Leukocyte Esterase Ur 2+ LEU/UL (Negative); Need Manual Microscopic Reviewed; Nitrate Urine Negative (Negative); Non Pathogenic Casts 0-2; Protein Urine Negative (Negative); RBC Urine 0-2 /hpf (0-2); Specific Grav Ur 1.003 (1.001-1.035); Squamous Epithelial Cell Urine Few /hpf (Few); Urobilinogen Urine 0.2 mg/dL (<2.0); WBC Urine 21-50 /hpf; pH Urine 6.5 (5.0-9.0)
[2022-10-09 21:51] LABS: Add Urine Microscopic? YES
[2022-10-09 21:54] VITALS: BMI 37.8
--- NOTE | 2022-10-09 21:54 | OBADM ---
This patient, Cee March, admitted to the OB room [facility] for observation. Patient/family oriented to hospital policies and general routines including ID bracelet, bed and alarms, visiting hours, pain management, procedures, bathroom and other care routines, personal items, smoking policy, room service/diet, and visiting hours. Patient/Family are encouraged to report perceived risks to care and to ask questions if they do not understand what they are told or what they should do.
--- NOTE | 2022-10-24 18:26 | PM.OBTRLD ---
OB - Triage/Final Diagnosis Visit Information Date of evaluation: 11/09/22 Reason for evaluation: threatened labor Comments/Additional reasons for admission: I have assessed the risk for this patient, Cee March, and determined that she would benefit from observation care. Evaluation Laboratory results: Laboratory Tests 10/09/22 19:41 Urine Color Yellow Urine Appearance Clear Urine pH 6.5 Ur Specific [place] 1.003 Urine Protein Negative Urine Glucose (UA) Negative Urine Ketones Negative Ur Blood (Man) Negative Urine Nitrate Negative Urine Bilirubin Negative Urine Urobilinogen 0.2 Add Ur Microanalysis Reviewed Leukocyte Esterase Rfl 2+ H Urine RBC 0-2 Urine WBC 21-50 Ur Squamous Epith Cells Few Urine Bacteria Rare Urine Casts 0-2
== END 2022-10-09 22:05 | disposition home or self-care (01) ==
PROVIDERS: Admitting Provider Advanced Practice Midwife; Visit Provider Advanced Practice Midwife
DX: O47.02 False labor before 37 completed weeks of gestation, second trimester (principal); O26.892 Other specified pregnancy related conditions, second trimester; R10.9 Unspecified abdominal pain; Z3A.26 26 weeks gestation of pregnancy
CPT/HCPCS: 81001; 87086; 87088; G0378; G0379

== ENCOUNTER 2022-10-26 16:40 | Emergency (ER) | payer OTHER, MEDICAID, SELFPAY ==
[2022-10-26] VITALS (28 sets, daily range): BP systolic 116–151; BP diastolic 65–87; PULSE 72–109; RESP 16–34; TEMP 37.2; O2SAT 96–100
--- NOTE | ~2022-10-26 | XR_ITS ---
EXAMINATION: XR chest 1V Exam Date/Time: 10/26/2022 18:40 CDT HISTORY: shortness of breath, DIZZINESS, DOUBLE SHIELDED FOR PREG Comparison: 03/02/22. RESULT: Lines, tubes, and devices: None. Lungs and pleura: Clear. Cardiomediastinal silhouette: Stable. Other: No acute osseous or upper abdominal finding. IMPRESSION: No acute cardiopulmonary process. Reviewed, dictated and finalized at location K.
--- NOTE | ~2022-10-26 | NM_ITS ---
EXAMINATION: NM pulmonary perfusion DATE: 10/26/2022 20:31 INDICATION: Shortness of breath TECHNIQUE: 4.77 mCi Tc-99m MAA was administered intravenously for perfusion images. Scintigraphic slim ges of the chest were obtained. COMPARISON: X-ray chest, same date. FINDINGS: Perfusion images show normal perfusion without defects. IMPRESSION: Low probability for pulmonary embolism. Reviewed, dictated and finalized at location K.
--- NOTE | 2022-10-26 17:03 | ECG_ITS ---
Measurements Intervals [place] Rate: 77 P: -9 DC: 143 QRS: 43 QRSD: 94 T: 1 QT: 379 QTc: 431 Interpretive Statements SINUS RHYTHM NORMAL ECG NO PREVIOUS ECG AVAILABLE FOR COMPARISON Electronically Signed On 10-26-2022 17:58:46 CDT by Matteo Taylor M.D.
[2022-10-26 18:07] LABS: Basophils Absolute Auto 0.1 K/mm3 (0.0-0.1); Basophils Percent Auto 0.4 % (0.2-1.2); Eosinophils Absolute Auto 0.1 K/mm3 (0-0.3); Hematocrit 33.5 % (37.0-47.0); Hemoglobin 11.2 g/dL (12.0-15.0); Immature Granulocyte Absolute 0.27 K/mm3 (0.00-0.031); Immature Granulocyte Percent A 2.1 % (0-0.5); Lymphocytes Absolute Auto 1.82 K/mm3 (0.9-3.2); Lymphocytes Percent Auto 14.5 % (18.3-44.2); Mean Corpuscular HGB Conc 33.4 g/dl (32-36); Mean Corpuscular Volume 92.8 fl (80-100); Mean Platelet Volume 10.5 fl (7.4-10.4); Monocytes Absolute Auto 0.9 K/mm3 (0.1-0.6); Monocytes Percent Auto 6.9 % (2.6-8.5); Neutrophils Absolute Auto 9.4 K/mm3 (1.3-6.7); Neutrophils Percent Auto 75.1 % (45.5-73.1); Platelet Count Result 236 k/mm3 (150-375); Red Blood Count 3.61 M/mm3 (4.2-5.4); Red Cell Distribution Width 13.9 % (11.5-14.5); White Blood Count 12.6 K/mm3 (4.5-10.0)
[2022-10-26 18:12] LABS: Appearance Urine Clear (Clear); Bacteria Urine None Seen /hpf; Bilirubin Urine Negative (Negative); Blood Urine Negative (Negative); Color Urine Yellow (Yellow); Glucose Urine UA Negative (Negative); Ketones Urine Negative (Negative); Leukocyte Esterase Ur Negative LEU/UL (Negative); Nitrate Urine Negative (Negative); Non Pathogenic Casts 0-2; Protein Urine Trace mg/dL (Negative); Specific Grav Ur 1.022 (1.001-1.035); Squamous Epithelial Cell Urine None seen /hpf (Few); Urobilinogen Urine 0.2 mg/dL (<2.0); WBC Urine 0-5 /hpf; pH Urine 6.5 (5.0-9.0)
--- NOTE | 2022-10-26 18:15 | ED.GENADULT ---
HPI - General Adult General Chief complaint: Dizziness Stated complaint: palp/sob/28 weeks preg Time Seen by Provider: 10/26/22 16:46 Source: patient and RN notes reviewed Mode of arrival: ambulatory Limitations: no limitations History of Present Illness HPI narrative: This is a 26 year old 28 weeks GA who presents for evaluation of dizziness and shortness of breath. PAtient reports she has been dealing with swelling to her hands and feet for several weeks. She also reports heart racing for several weeks as well and this occurs with eating. Today she is reporting shortness of breath at rest and she feels like her heart is pounding. She denies chest pain, fever, chills, nausea, vomiting. She does reports frontal headache that she describes as throbbing. She has not taken any medication for her pain Related Data Home Medications Medication Instructions Recorded Confirmed prenat.vits,larissa,[id number] 1 tablet PO DAILY 05/31/22 07/26/22 Allergies Allergy/AdvReac Type Severity Reaction Status Date / Time No Known Allergies Allergy Verified 10/26/22 16:48 Review of Systems Constitutional: Constitutional: Denies weakness Cardiovascular: Cardiovascular: Denies syncope, Reports rapid heart rate, Denies irregular heart rhythm, Reports leg edema and Reports dyspnea Respiratory: Respiratory: Denies chest congestion, Denies hemoptysis, Denies excessive phlegm production and Denies dyspnea Gastrointestinal: Gastrointestinal: Denies abdominal pain, Denies hematochezia, Denies diarrhea and Denies vomiting Genitourinary: Genitourinary: Denies hematuria and Denies dysuria Musculoskeletal: Musculoskeletal: Reports joint swelling, Denies loss of height and Denies muscle weakness Neurologic: Reports dizziness, Denies syncope, Reports headache(s), Denies focal weakness and Denies weakness PMFSH Past Medical History Medical History ADHD Anxiety Depression GERD (gastroesophageal reflux disease) Fabian's disease IBS (irritable bowel syndrome) Vaginal discharge Surgical History Surgical History History of tonsillectomy Family History Family History Father Adenocarcinoma Social History Social History Smoking status: Never smoker Alcohol intake: never Alcohol use details: Occasional Substance use: never Occupation/Education: occupation Gender identity (if verbalized by the patient): Female Sexual Orientation (if Verbalized by the Patient): Straight or Heterosexual Exam Narrative: GENERAL: Well-appearing, well-nourished, and in no acute distress. HEAD: Normocephalic, atraumatic EYES: PERRLA and EOMI, conjunctiva clear without discharge EARS: TM's clear bilaterally without erythema or dullness NOSE: Nares clear, no rhinorrhea or epistaxis THROAT:Mucous membranes moist, Oropharynx normal without erythema, exudate, peritonsillar swelling or fluctuance NECK: Supple, without lymphadenopathy or mass RESPIRATORY: No respiratory distress, Airway patent, Respirations non-labored, Clear to auscultation without rales, rhonchi or wheeze HEART: Regular rate and rhythm. No murmur heard. Normal peripheral pulses. ABDOMEN: Soft, nontender,gravid normal active bowel sounds. No masses. No rebound or guarding, No organomegaly. EXTREMITIES: No edema, normal strength with full range of motion. SKIN: Warm, dry, normal color without rash NEURO: Alert and oriented x3. CN 2-12 grossly intact. No focal deficits. PSYCH: Normal mood and affect. Neuro: Speech: No Abnormal speech present Course Reevaluation(s) Reevaluation #1: I have discussed with patient that labs and imaging do not show any significant findings. She does not appear to be in pre eclampsia. PE, NC, cardiomyopathy not seen at this
[2022-10-26 18:18] LABS: Add Urine Microscopic? YES
[2022-10-26 18:25] LABS: D Dimer 1.96 ug/mL (<0.48); Magnesium 1.8 mg/dL (1.6-2.3)
[2022-10-26 18:30] LABS: Alanine Aminotransferase 19 U/L (6-35); Albumin Level 3.7 g/dL (3.5-5.1); Alkaline Phosphatase 128 U/L (38-126); Anion Gap 5 mmol/L (8-16); Aspartate Amino Transferase 17 U/L (14-36); Bilirubin,Total 0.3 mg/dL (0.2-1.3); Blood Urea Nitrogen 5 mg/dL (7-17); Calcium 8.8 mg/dL (8.4-10.2); Carbon Dioxide 21 mmol/L (22-30); Chloride 109 mmol/L (98-107); Estimated CRCL calculation 137 ml/min; Estimated Glomerular Filt Rate > 60; Glucose 82 mg/dL (65-110); Potassium 3.8 mmol/L (3.4-5.0); Sodium 135 mmol/L (137-145); Uric Acid 2.2 mg/dL (2.5-7.5)
[2022-10-26 18:38] LABS: NT Pro B Type Natriuretic Pept < 20 pg/mL (19.9-100); Troponin I < 0.012 ng/mL (0.000-0.034)
[2022-10-26 19:15] LABS: Prothrombin Time 12.7 Seconds (11.1-14.7)
[2022-10-26 19:20] LABS: Partial Thromboplastin Time 27.1 SECONDS (22.3-36.8)
--- NOTE | 2022-10-26 20:09 | PC.NURSE ---
Pt taken to get NM pulmonary perfusion scan at this time.
== END 2022-10-26 21:42 | disposition home or self-care (01) ==
PROVIDERS: Emergency Provider General Practice
DX: O26.892 Other specified pregnancy related conditions, second trimester (principal); R06.00 Dyspnea, unspecified; O99.282 Endocrine, nutritional and metabolic diseases complicating pregnancy, second trimester; E06.3 Autoimmune thyroiditis; O99.612 Diseases of the digestive system complicating pregnancy, second trimester; R00.2 Palpitations; K58.9 Irritable bowel syndrome, unspecified; K21.9 Gastro-esophageal reflux disease without esophagitis; Z3A.28 28 weeks gestation of pregnancy
CPT/HCPCS: 36415; 71045; 78580; 80053; 81001; 83735; 83880; 84484; 84550; 85025; 85380; 85610; 85730; 93005; 99284; A9540

== ENCOUNTER 2022-11-05 07:03 | Outpatient (CLI) | payer OTHER, MEDICAID, SELFPAY ==
[2022-11-05 07:42] LABS: Glucose Fasting Gestational 87 mg/dL (>/=95)
[2022-11-05 09:20] LABS: Glucose 1 Hour Gest 149 mg/dL (>/=180)
[2022-11-05 10:19] LABS: Glucose 2 Hour Gest 156 mg/dL (>/= 155)
[2022-11-05 13:08] LABS: Glucose 3 Hour Gest 112 mg/dL (>/=140)
== END 2022-11-05 07:04 | disposition home or self-care (01) ==
LOC: ANHLAB 07:05
PROVIDERS: Visit Provider Student in an Organized Health Care Education/Training Program
DX: O99.810 Abnormal glucose complicating pregnancy (principal); Z3A.00 Weeks of gestation of pregnancy not specified
CPT/HCPCS: 36415; 82951; 82952; 90384; 96372; J2790

== ENCOUNTER 2022-11-05 08:58 | Outpatient (RCR) | payer OTHER, MEDICAID, SELFPAY ==
[2022-11-03 11:49] LABS: Hematocrit 33.4 % (37.0-47.0); Hemoglobin 11.2 g/dL (12.0-15.0); Mean Corpuscular HGB Conc 33.5 g/dl (32-36); Mean Corpuscular Hemoglobin 31.5 pg (26-34); Mean Corpuscular Volume 93.8 fl (80-100); Mean Platelet Volume 10.3 fl (7.4-10.4); Platelet Count Result 189 k/mm3 (150-375); Red Blood Count 3.56 M/mm3 (4.2-5.4); Red Cell Distribution Width 13.9 % (11.5-14.5); White Blood Count 10.5 K/mm3 (4.5-10.0)
[2022-11-03 12:22] LABS: Glucose 1 Hour PP 50gm Dose 142 mg/dL
[2022-11-03 13:03] LABS: HIV 1/2 Ab P24 Ag Result Negative (Negative)
[2022-11-05] MEDS: RHO(D) IMMUNE GLOBULIN 300 MCG/2 ML SYRINGE IM (09:18)
== END 2023-02-01 23:59 | disposition home or self-care (01) ==
LOC: ANHLAB 08:58
PROVIDERS: Visit Provider Student in an Organized Health Care Education/Training Program
DX: Z11.4 Encounter for screening for human immunodeficiency virus [HIV] (principal); O36.0190 Maternal care for anti-D [Rh] antibodies, unspecified trimester, not applicable or unspecified; Z3A.00 Weeks of gestation of pregnancy not specified
CPT/HCPCS: 36415; 82947; 85027; 85461; 86703; 86850; 86900; 86901; 90384; 96372; G0432; J2790

== ENCOUNTER 2022-11-18 14:34 | Outpatient (CLI) | payer OTHER, MEDICAID, SELFPAY ==
--- NOTE | 2022-11-18 14:42 | ECHO_ITS ---
Patient Info Name: Cee March Age: 26 years : 1995 Gender: Female Ht: 60 in Wt: 200 lbs BSA: 2.01 m2 HR: 68 bpm BP: 123 / 76 mmHg Technical Quality: Fair Exam Date: 11/18/2022 3:05 PM Exam Location: [facility] Patient Status: Outpatient Admit Date: 11/18/2022 Staff Ordering Physician: Vladislav Glasgow MD Residential Case Manager: Betsey Butt RDCS Attending Provider: Vladislav Glasgow MD Referring Physician: Myah VIDES; Exam Type: CA echo doppler color flow Study Info Indications R60.9 - Edema, unspecified Complete two-dimensional, color flow and Doppler transthoracic echocardiogram is performed. Summary 1. Complete two-dimensional, color flow and Doppler transthoracic echocardiogram is performed. 2. Left ventricular chamber dimension is normal. 3. Left ventricular systolic function is normal, estimated at 55-60%. 4. The left ventricular diastolic function is grade I diastolic dysfunction. 5. E/e' 6 is not elevated. 6. There is trace tricuspid valve regurgitation. 7. No pulmonary hypertension, estimated pulmonary arterial systolic pressure is 33 mmHg. 8. There is trace pulmonic regurgitation. Left Ventricle E/e' 6 is not elevated. Left ventricular chamber dimension is normal. Left ventricular systolic function is normal, estimated at 55-60%. The left ventricular diastolic function is grade I diastolic dysfunction. Right Ventricle Right ventricular systolic function is normal and with normal TAPSE 2.4 cm. Right ventricular chamber dimension is normal. Left Atria Left atrial chamber dimension is normal. Right Atria Right atrial chamber dimension is normal. Aortic Valve The aortic valve is trileaflet. There is no aortic valve stenosis. There is no aortic valve regurgitation. Pulmonic Valve There is trace pulmonic regurgitation. Mitral Valve There is no mitral valve stenosis. There is no mitral valve regurgitation. Tricuspid Valve There is trace tricuspid valve regurgitation. No pulmonary hypertension, estimated pulmonary arterial systolic pressure is 33 mmHg. Pericardium/Pleural There is no pericardial effusion. Inferior Vena Cava Normal inferior vena cava with >50% collapse upon inspiration consistent with normal right atrial pressure, 5 mmHg. Aorta The aortic root size at the sinus of Valsalva is normal. Left Ventricular Outflow Tract Name Value Normal LVOT 2D LVOT Diameter 2.0 cm LVOT Doppler LVOT Peak Gradient 7 mmHg LVOT Mean Gradient 4 mmHg LVOT VTI 27 cm LVOT VTI/AV VTI Ratio 0.9 LVOT Stroke Volume 85 ml LVOT CO 19.3 l/min LVOT CI 9.6 l/min/m2 Pulmonic Valve Name Value Normal PV Doppler PV Peak Gradient 4 mmHg PV Regurgitation Doppler
== END 2022-11-18 14:35 | disposition home or self-care (01) ==
LOC: ANHCARD 14:36
PROVIDERS: Visit Provider Student in an Organized Health Care Education/Training Program
DX: R60.9 Edema, unspecified (principal)
CPT/HCPCS: 93306

== ENCOUNTER → 2022-12-07 12:44 | Outpatient (CLI) | payer OTHER, MEDICAID, SELFPAY ==
--- NOTE | ~2022-12-07 | US_ITS ---
EXAMINATION: US OB follow up DATE: 12/07/2022 13:11 INDICATION: Encounter for supervision of normal . TECHNIQUE: Real-time ultrasound of the pelvis was performed. COMPARISON: Ultrasound 08/29/2022, 05/30/2022 FINDINGS: There is a single living fetus in vertex presentation. The placenta is anterior. heart rate is 152 beats per minute (bpm). The amniotic fluid index is 14.4 cm, which is normal. The following biometric data were obtained: Biparietal diameter (BPD): 9.2 cm; head circumference (HC): 32.8 cm; abdominal circumference (AC): 33 .5 cm; femur length (FL): 7.2 cm. These measurements are concordant. Estimated weight is 3165 g +/- 475 g, which correlates with the >97th percentile when 01/15/23 i s used as estimated date of delivery. As single measurements, these parameters are each equal to the following estimated gestational ages: BPD: 37 weeks 3 days. HC: 37 weeks 2 days. AC: 37 weeks 2 days. FL: 37 weeks 0 days. estimated gestational age based solely on measurements from this exam is 37 weeks 2 days +/- 2 weeks 4 days. IMPRESSION: 1. Single living fetus in vertex presentation. 2. Large for gestational age. Estimated weight is 3165 g +/- 475 g, which correlates with the >97th percentile when 01/15/23 is used as estimated date of delivery. This date was set by ultrasound on 05/30/2022. Reviewed, dictated and finalized at location A. IMPRESSION: 1. Single living fetus in vertex presentation. 2. Large for gestational age. Estimated weight is 3165 g +/- 475 g, whic h correlates with the >97th percentile when 01/15/23 is used as estimated date o f delivery. This date was set by ultrasound on 05/30/2022.
== END ==
PROVIDERS: PCP Student in an Organized Health Care Education/Training Program; Visit Provider Student in an Organized Health Care Education/Training Program
DX: Z34.90 Encounter for supervision of normal pregnancy, unspecified, unspecified trimester (principal); Z3A.37 37 weeks gestation of pregnancy
CPT/HCPCS: 76816

== ENCOUNTER 2022-12-14 10:54 | Outpatient (CLI) | payer OTHER, MEDICAID, SELFPAY ==
[2022-12-14] VITALS (7 sets, daily range): BP systolic 125–137; BP diastolic 65–80; PULSE 75–110
--- NOTE | 2022-12-14 11:44 | PC.NURSE ---
Dr. Glasgow informed of pt's arrival with c/o having lost mucous plug 4 days ago and has had some contraction, vaginal pain, and back pain on and off since then. States she has had increased wetness in her underwear for the last 4 days also. informed ROM plus test was negative, FHT's reactive, no contractions per monitor. Pt also c/o blurry vision and headaches the previous 4 days, but denies at present. Not epigastric/RUQ pain. . Order received to discharge to home.
--- NOTE | 2022-12-14 12:41 | PM.OBTRLD ---
OB - Triage/Final Diagnosis Visit Information Date of evaluation: 12/14/22 Reason for evaluation: threatened labor Comments/Additional reasons for admission: I have assessed the risk for this patient, Cee March, and determined that she would benefit from observation care. Evaluation Vital signs: Vital Signs - 24 hr 12/14/22 11:13 12/14/22 11:15 12/14/22 11:30 Pulse Rate 110 H 88 81 Blood Pressure 133/74 130/71 136/80 12/14/22 11:45 12/14/22 12:00 12/14/22 12:15 Pulse Rate 81 84 75 Blood Pressure 137/65 134/75 125/74
== END 2022-12-14 12:31 | disposition home or self-care (01) ==
LOC: ANHOBOP 11:02 → ANHLDR 11:02
PROVIDERS: Visit Provider Student in an Organized Health Care Education/Training Program
DX: Z34.90 Encounter for supervision of normal pregnancy, unspecified, unspecified trimester (principal); Z3A.00 Weeks of gestation of pregnancy not specified
CPT/HCPCS: 59025; 84112; 99199

== ENCOUNTER 2022-12-21 16:24 | Observation (INO) | payer OTHER, MEDICAID, SELFPAY ==
[2022-12-21 16:45] VITALS: RESP 16; TEMP 37; BMI 41.1
--- NOTE | 2022-12-21 16:45 | OBADM ---
This patient, Cee March, admitted to the OB room 115 for observation. Patient/family oriented to hospital policies and general routines including ID bracelet, bed and alarms, visiting hours, pain management, procedures, bathroom and other care routines, personal items, smoking policy, room service/diet, and visiting hours. Patient/Family are encouraged to report perceived risks to care and to ask questions if they do not understand what they are told or what they should do.
--- NOTE | 2022-12-22 13:34 | PM.OBTRLD ---
OB - Triage/Final Diagnosis Visit Information Reason for evaluation: threatened labor Comments/Additional reasons for admission: I have assessed the risk for this patient, Cee March, and determined that she would benefit from observation care. Evaluation Vital signs: Vital Signs - 24 hr 12/21/22 16:45 Temperature 98.6 F Respiratory Rate 16
== END 2022-12-21 18:01 | disposition home or self-care (01) ==
PROVIDERS: Admitting Provider Obstetrics & Gynecology; Visit Provider Obstetrics & Gynecology
DX: O47.03 False labor before 37 completed weeks of gestation, third trimester (principal); Z3A.36 36 weeks gestation of pregnancy
CPT/HCPCS: G0378; G0379

== ENCOUNTER 2022-12-27 17:07 | Inpatient (IN) | payer OTHER, MEDICAID, SELFPAY ==
[2022-12-27] VITALS (64 sets, daily range): BP systolic 123–161; BP diastolic 53–111; PULSE 81–208; RESP 16–18; TEMP 36.6–37.4; O2SAT 84–100; BMI 43.0
--- NOTE | 2022-12-27 17:07 | LDADM ---
This patient, Cee March, was admitted to Labor/Delivery/Recovery 105 on 12/27/22 at 17:07. Plans for labor, pain management and were discussed with patient. Patient/family oriented to hospital policies and general routines including ID bracelet, bed and alarms, visiting hours, pain management, procedures, bathroom and other care routines, personal items, smoking policy, room service/diet and guest tray routines, security routines, and visiting hours. Patient/Family are encouraged to report perceived risks to care and to ask questions if they do not understand what they are told or what they should do. See OBIX for further documentation.
--- NOTE | 2022-12-27 18:16 | P.PNAN_ITS ---
Anes - Eval Pre Procedure Procedure: labor epidural Date/Time: 12/27/22 18:16 Pre Op Diagnosis: IOL Patient Data Age: 27 Gender: F Height: 1.52 m Weight: 100 kg Last Vital Signs Temp 37.4 C 12/27/22 17:51 Allergies Allergy/AdvReac Type Severity Reaction Status Date / Time No Known Allergies Allergy Verified 12/27/22 14:44 Home Medications Medication Instructions Recorded Confirmed Type prenat.vits,larissa,[id number] 1 tablet PO DAILY 05/31/22 12/27/22 History famotidine 10 mg tablet 10 mg PO DAILY #30 tabs 08/25/22 12/27/22 Rx sertraline 50 mg tablet (Zoloft) 50 mg PO DAILY #30 tabs 11/09/22 12/27/22 Rx propranolol 10 mg tablet 10 mg PO DAILY 12/21/22 12/27/22 History Patient hx anesthesia problems: none Family hx anesthesia problems: none Results Review: All pre-operative results and documents have been reviewed as part of the pre- operative evaluation. [facility] Past Medical History Medical History Abnormal glucose tolerance in ADHD Anxiety Depression GERD (gastroesophageal reflux disease) Fabian's disease IBS (irritable bowel syndrome) Vaginal discharge Surgical History Surgical History History of tonsillectomy Family History Family History Father Adenocarcinoma Heart attack High cholesterol Grandparent Cerebrovascular accident Sibling High cholesterol Social History Social History Smoking status: Never smoker Alcohol intake: never Alcohol use details: Occasional Substance use: never Lack of Transportation: No Lack of Food: Never True Current Housing: I Have Housing Concerned About Future Housing: No Difficulty Paying Gas/Electric Bills: No Difficulty Paying for Meds: No Currently Unemployed: No Education: Associate Degree Difficulty w/ Childcare or Family Care: No Occupation/Education: occupation Gender identity (if verbalized by the patient): Female Sexual Orientation (if Verbalized by the Patient): Straight or Heterosexual Spiritual care concerns: No Exam Day of Procedure 12/27/22 18:16 Patient weight: morbidly obese Heart: regular rate and rhythm Lungs: normal air movement Airway: Mallampati scale Neurological: alert and oriented
[2022-12-27] MEDS: LACTATED RINGERS 1,000 ML 125 ML IV CONT (18:30)
[2022-12-27 18:31] LABS: Basophils Percent Auto 0.4 % (0.2-1.2); Eosinophils Absolute Auto 0.1 K/mm3 (0-0.3); Eosinophils Percent Auto 1.2 % (0-4.4); Hematocrit 30.6 % (37.0-47.0); Hemoglobin 10.5 g/dL (12.0-15.0); Immature Granulocyte Absolute 0.16 K/mm3 (0.00-0.031); Immature Granulocyte Percent A 1.6 % (0-0.5); Lymphocytes Absolute Auto 1.43 K/mm3 (0.9-3.2); Mean Corpuscular HGB Conc 34.3 g/dl (32-36); Mean Corpuscular Hemoglobin 31.3 pg (26-34); Mean Corpuscular Volume 91.1 fl (80-100); Mean Platelet Volume 11.6 fl (7.4-10.4); Monocytes Absolute Auto 0.7 K/mm3 (0.1-0.6); Monocytes Percent Auto 6.9 % (2.6-8.5); Neutrophils Absolute Auto 7.7 K/mm3 (1.3-6.7); Neutrophils Percent Auto 75.9 % (45.5-73.1); Platelet Count Result 188 k/mm3 (150-375); Red Blood Count 3.36 M/mm3 (4.2-5.4); Red Cell Distribution Width 14.4 % (11.5-14.5); White Blood Count 10.2 K/mm3 (4.5-10.0)
[2022-12-27] MEDS: OXYTOCIN 30 UNITS/NS 500 ML 30 UNITS/500 ML BAG 6 UNITS IV CONT (18:31)
[2022-12-27 18:44] LABS: Alanine Aminotransferase 20 U/L (6-35); Albumin Level 3.5 g/dL (3.5-5.1); Alkaline Phosphatase 138 U/L (38-126); Anion Gap 7 mmol/L (8-16); Aspartate Amino Transferase 29 U/L (14-36); Bilirubin,Total 0.3 mg/dL (0.2-1.3); Blood Urea Nitrogen 3 mg/dL (7-17); Calcium 8.3 mg/dL (8.4-10.2); Carbon Dioxide 21 mmol/L (22-30); Chloride 109 mmol/L (98-107); Estimated CRCL calculation 128 ml/min; Estimated Glomerular Filt Rate > 60; Glucose 97 mg/dL (65-110); Potassium 3.1 mmol/L (3.4-5.0); Sodium 137 mmol/L (137-145); Uric Acid 3.4 mg/dL (2.5-7.5)
--- NOTE | 2022-12-27 22:57 | WPDHPUPDATE1 ---
History and Physical Update Update Date/Time: 12/27/22 22:57 History and Physical has been reviewed, including an updated exam of the patient. There are NO changes in the patient's condition. Risks, benefits, and alternatives have been discussed and questions answered. Patient agrees to proceed with procedure.
--- NOTE | 2022-12-27 22:57 | WPDOBADMIT ---
Obstetrics - Admit Note Admission Note: record reviewed. No pertinent additions to the history and/or any subsequent changes in the physical findings that are not consistent with the expected course of the were found. Additions to the history and/or subsequent changes in the physical findings follow. None.
--- NOTE | 2022-12-27 22:58 | PM.OBPRVD ---
OB - Delivery Note Procedure Events: Gestational Hypertension Induction method: AROM and Per Pitocin Protocol Delivery monitor: External FHT and External Uterine Route of delivery: Episiotomy description: None Laceration Description: Perineal - 2nd Degree Delivery repair: chromic Specimen: Yes Quantitative Blood Loss (ml): 300 Anesthesia type: Epidural Disposition: Floor Complications: none Baby Weeks of gestation at delivery: 37 Infant gender: Female presentation: vertex position: Right Occiput Anterior Placenta delivery description: Spontaneous Cord Vessel Description: 3 Vessels AMG Delivery Billing Delivery Delivery: Delivery Charge
[2022-12-27] MEDS: OXYTOCIN 30 UNITS/NS 500 ML 30 UNITS/500 ML BAG 125 UNITS IV CONT (23:17)
[2022-12-28] VITALS (26 sets, daily range): BP systolic 126–164; BP diastolic 73–100; PULSE 70–107; RESP 14–18; TEMP 36.4–37.5; O2SAT 98–100
[2022-12-28] MEDS: SERTRALINE HCL 50 MG TABLET PO ×2 (00:05→23:55)
[2022-12-28] MEDS: WITCH HAZEL 40 PADS 1 PAD TOPICAL (00:40)
[2022-12-28] MEDS: BENZOCAINE 20% AER SPR (*SP) 56 GM CAN 1 SPRAY TOPICAL (00:40)
--- NOTE | 2022-12-28 01:23 | OBPPTRN ---
Patient transferred to post room #287 via wheelchair. Support person present. Oriented to unit, room, information board, rooming in, admission packet and security measures. Patient verbalizes understanding.
[2022-12-28] MEDS: ACETAMINOPHEN 325 MG TABLET 650 MG PO ×3 (01:48→18:35)
[2022-12-28 05:33] LABS: Hematocrit 28.7 % (37.0-47.0); Hemoglobin 9.8 g/dL (12.0-15.0)
[2022-12-28] MEDS: IBUPROFEN 600 MG TABLET PO ×3 (09:20→23:55)
[2022-12-28] MEDS: POLYSACCHARIDE IRON COMPLEX 150 MG CAPSULE PO ×2 (09:21→16:48)
[2022-12-28] MEDS: PROPRANOLOL HCL 10 MG TABLET PO (09:22)
--- NOTE | 2022-12-28 13:13 | WPDANLDPN2 ---
Anes-Prog Note L&D Date/Time: 12/28/22 13:13 Comfortable throughout: labor and delivery Neuraxial method: epidural Epidural/Spinal procedure site: clean & non-tender Neuro status: Neuro function grossly intact. Cardiovascular status: normal Respiratory status: normal Airway patency: baseline Mental status: baseline Post-Op hydration status: normal Vital Signs: Last Vital Signs Temp 36.8 C 12/28/22 12:15 Pulse 79 12/28/22 12:15 Resp 16 12/28/22 12:15 BP 126/77 12/28/22 12:15 Pulse Ox 98 12/28/22 12:15 O2 Del Method Room Air 12/28/22 01:40 Pain score (VAS): 2/10 I/O: Intake & Output 12/27/22 12/28/22 12/28/22 23:59 07:59 15:59 Output Total 75 Balance -75 Post-procedural complaints: none Patient feedback: Patient satisfied with anesthetic care.
[2022-12-29 03:12] VITALS: BP 138/83
[2022-12-29 08:00] VITALS: PULSE 84; RESP 16; O2SAT 100
[2022-12-29 08:35] VITALS: BP 150/87; PULSE 84; RESP 16; TEMP 36.9; O2SAT 100
[2022-12-29] MEDS: ACETAMINOPHEN 325 MG TABLET 650 MG PO (09:40)
[2022-12-29] MEDS: IBUPROFEN 600 MG TABLET PO (09:40)
[2022-12-29 09:41] VITALS: PULSE 84
[2022-12-29] MEDS: POLYSACCHARIDE IRON COMPLEX 150 MG CAPSULE PO (09:41)
[2022-12-29] MEDS: PROPRANOLOL HCL 10 MG TABLET PO (09:41)
[2022-12-29 10:04] LABS: Rapid Plasma Reagin Non-Reactive (NonReactive)
--- NOTE | 2022-12-29 10:36 | PM.OBDSVD ---
DS: Admitting Diagnosis Discharge Date 12/29/2022 Admitting Diagnosis DS: Discharge Diagnosis Discharge Diagnosis (1) , delivered: Code(s): O80 - Encounter for full-term uncomplicated delivery Status: Acute OB - DS: Summary OB Procedures : None OB Procedures Intrapartum: Spontaneous Vag Delivery OB Procedures: : None Time Spent with Patient Time attestation: Total time spent providing and/or coordinating discharge services: DS: Data Data Completed and Pending Pending studies at discharge: Pending at discharge 12/27/22 22:45 Surgical [PTH] Routine Labs on day of discharge: Labs from last 24 hours 12/27/22 18:23 RPR Non-reactive Discharge Plan Discharge Discharging Clinician: Sylvester Mcneal Patient Disposition: Home, Self-Care Activity: as tolerated Diet: as tolerated Patient Instructions: Antibiotic Form Stand Alone Forms: General Discharge Information Follow-up/Referrals: Sylvester Mcneal MD [Physician] - 3 Weeks Discharge Medications: New ibuprofen 600 mg Tablet 600 mg PO Q6H PRN (Reason: Cramping) Qty: 30 0RF Continued prenat.vits,larissa,[id number] Tablet 1 tablet PO DAILY famotidine 10 mg tablet 10 mg PO DAILY Qty: 30 0RF sertraline [Zoloft] 50 mg tablet 50 mg PO DAILY Qty: 30 4RF propranolol 10 mg tablet 10 mg PO DAILY Date of admission: 12/27/22 17:07 Primary Care Provider: PHYSICIAN NOT ON STAFF,NONSTAFF Admitting Provider: Sylvester Mcneal Attending physician on admission: Sylvester Mcneal Condition: Stable
--- NOTE | 2022-12-29 13:19 | PC.NURSE ---
Patient viewed the discharge video Mother & Baby Care, The First Two Weeks . Patient was given the opportunity and encouraged to ask questions. Patient verbalized understanding of information shared and has been given the mother/baby guide for home reference.
[2022-12-31 08:03] VITALS: BP 162/87; PULSE 69; RESP 20; TEMP 36.8; O2SAT 100
[2022-12-31 09:10] VITALS: BP 162/94; PULSE 69; RESP 20; O2SAT 100
== END 2022-12-29 14:00 | disposition home or self-care (01) | DRG 807 ==
LOC: ANHLDR 17:20 → ANHOB2 12-28 01:25
PROVIDERS: Admitting Provider Obstetrics & Gynecology; Visit Provider Obstetrics & Gynecology
DX: O13.4 Gestational [pregnancy-induced] hypertension without significant proteinuria, complicating childbirth (principal); Z37.0 Single live birth; O70.1 Second degree perineal laceration during delivery; Z3A.37 37 weeks gestation of pregnancy
CPT/HCPCS: 36415; 80053; 84550; 85014; 85018; 85025; 85461; 86592; 86850; 86880; 86900; 86901; 88307; A9270; J2590; J2795; J7120

== ENCOUNTER 2022-12-31 10:32 | Observation (INO) | payer OTHER, MEDICAID, SELFPAY ==
[2022-12-31] VITALS (97 sets, daily range): BP systolic 120–162; BP diastolic 70–92; PULSE 67–116; RESP 16–18; TEMP 36.6–37.2; O2SAT 94–100; BMI 39.2
--- NOTE | 2022-12-31 09:14 | PC.NURSE ---
Initial BP of 153/87 was obtained with a BP cuff larger than arm size required. Switched to appropriate Normal BP cuff size for further BP's.
--- NOTE | 2022-12-31 09:26 | PC.NURSE ---
Dr. Mathew informed of this pt of Dr. Mcneal's that was induced at 37+ weeks for gestational hypertension had severe range BP's today when she came back in for her follow-up appointment. BP's were 162/87 and 160/94 for them and my initial BP was 162/92. Discussed pt taking Propranolol for hx of SVT. Pt has a frontal headache she rates as a 3-4, denies visual disturbance and epigastric pain. DTR's 2-3+ and no clonus. Pt has 2+ pitting edema in her feet and 1+ pitting edema in lower legs. Pt also states she has had diarrhea since the day after her delivery that is getting worse. Pt describes having liquid stools after each meal and has had 2 today without eating yet. Orders received.
--- NOTE | 2022-12-31 09:46 | PC.NURSE ---
Dr. Mathew informed last 2 BP's were 156/85 and 154/88. OK to still give Procardia 10 mg PO.
[2022-12-31] MEDS: NIFEdipine 10 MG CAPSULE PO (09:47)
[2022-12-31] MEDS: LOPERAMIDE HCL 2 MG CAPSULE 4 MG PO (09:58)
[2022-12-31] MEDS: ACETAMINOPHEN 500 MG TABLET 1000 MG PO (09:58)
[2022-12-31 10:08] LABS: Basophils Absolute Auto 0.1 K/mm3 (0.0-0.1); Basophils Percent Auto 0.6 % (0.2-1.2); Eosinophils Absolute Auto 0.3 K/mm3 (0-0.3); Hematocrit 27.1 % (37.0-47.0); Immature Granulocyte Absolute 0.25 K/mm3 (0.00-0.031); Immature Granulocyte Percent A 2.4 % (0-0.5); Lymphocytes Absolute Auto 1.57 K/mm3 (0.9-3.2); Lymphocytes Percent Auto 15.3 % (18.3-44.2); Mean Corpuscular HGB Conc 33.2 g/dl (32-36); Mean Corpuscular Hemoglobin 30.5 pg (26-34); Mean Corpuscular Volume 91.9 fl (80-100); Mean Platelet Volume 10.5 fl (7.4-10.4); Monocytes Absolute Auto 0.7 K/mm3 (0.1-0.6); Neutrophils Absolute Auto 7.4 K/mm3 (1.3-6.7); Neutrophils Percent Auto 71.7 % (45.5-73.1); Platelet Count Result 200 k/mm3 (150-375); Red Blood Count 2.95 M/mm3 (4.2-5.4); Red Cell Distribution Width 14.4 % (11.5-14.5); White Blood Count 10.3 K/mm3 (4.5-10.0)
[2022-12-31 10:28] LABS: Alanine Aminotransferase 32 U/L (6-35); Albumin Level 3.3 g/dL (3.5-5.1); Alkaline Phosphatase 117 U/L (38-126); Anion Gap 2 mmol/L (8-16); Aspartate Amino Transferase 39 U/L (14-36); Bilirubin,Total 0.4 mg/dL (0.2-1.3); Blood Urea Nitrogen 5 mg/dL (7-17); Calcium 8.1 mg/dL (8.4-10.2); Carbon Dioxide 28 mmol/L (22-30); Chloride 107 mmol/L (98-107); Estimated CRCL calculation 143 ml/min; Estimated Glomerular Filt Rate > 60; Glucose 82 mg/dL (65-110); Potassium 2.7 mmol/L (3.4-5.0); Sodium 137 mmol/L (137-145); Uric Acid 2.6 mg/dL (2.5-7.5)
--- NOTE | 2022-12-31 10:32 | PC.NURSE ---
Dr. Mathew informed of lab results including the critical K+ level. updated on BP's. Orders received.
[2022-12-31] MEDS: POTASSIUM CHLORIDE 20 MEQ ER TABLET 40 MEQ PO ×2 (10:52→17:08)
[2022-12-31] MEDS: NIFEdipine 30 MG TAB.ER.24 PO (11:00)
--- NOTE | 2022-12-31 14:50 | PC.NURSE ---
Pt has slept for several hours. Woke pt to draw labs.
[2022-12-31 15:22] LABS: Alanine Aminotransferase 34 U/L (6-35); Aspartate Amino Transferase 39 U/L (14-36); Potassium 3.1 mmol/L (3.4-5.0)
--- NOTE | 2022-12-31 16:05 | PC.NURSE ---
Dr. Mathew informed K+ up to 3.1 and ALT and AST stable. Discussed BP's including the 152/92 when cuff was on left arm and pt laying on left arm. Repeat BP 141/84. Pt's headache had totally resolved, but came back slightly around 1500 and pt rates as a 1. No diarrhea since arrival. Orders for another dose of oral KCL and then to discharge pt on Procardia XL with preeclampsia precautions. Pt to check BP's at home daily and call for severe pressures.
--- NOTE | 2022-12-31 16:15 | PC.NURSE ---
Pt informed of plan for discharge. Pt doesn't have a BP cuff at home, but has no problem with purchasing one. Informed I would send an RX for it with her Procardia RX, but didn't know if insurance would cover it or not.
--- NOTE | 2023-01-20 11:59 | P.PNOB_ITS ---
OB - Triage/Final Diagnosis Visit Information Comments/Additional reasons for admission: I have assessed the risk for this patient, Cee March, and determined that she would benefit from observation care. Evaluation Laboratory results: Laboratory Tests 12/31/22 12/31/22 09:56 14:49 WBC 10.3 H RBC 2.95 L Hgb 9.0 L Hct 27.1 L MCV 91.9 MCH 30.5 MCHC 33.2 RDW 14.4 Plt Count 200 MPV 10.5 H Immature Gran % (Auto) 2.4 H Neut % (Auto) 71.7 Lymph % (Auto) 15.3 L Larue % (Auto) 7.0 Eos % (Auto) 3.0 Baso % (Auto) 0.6 Lymph # (Auto) 1.57 Larue # (Auto) 0.7 H Eos # (Auto) 0.3 Baso # (Auto) 0.1 Abs Immat Gran (auto) 0.25 H Absolute Neuts (auto) 7.4 H Absolute Nucleated RBC 0.0 Nucleated RBC % 0.0 Sodium 137 Potassium 2.7 L* 3.1 L Chloride 107 Carbon Dioxide 28 Anion Gap 2 L BUN 5 L Creatinine 0.50 L Estim Creat Clear Calc 143 Estimated GFR > 60 Glucose 82 Uric Acid 2.6 Calcium 8.1 L Total Bilirubin 0.4 AST 39 H 39 H ALT 32 34 Alkaline Phosphatase 117 Total Protein 6.0 L Albumin 3.3 L Final Diagnosis (1) contractions: Code(s): O47.00 - False labor before 37 completed weeks of gestation, unspecified trimester Status: Acute
== END 2022-12-31 17:17 | disposition home or self-care (01) ==
LOC: ANHOBOP 16:43 → ANHOBPP 16:49 → ANHLDR 01-02 11:37 → ANHOBPP 01-02 11:37
PROVIDERS: Admitting Provider Obstetrics & Gynecology; Visit Provider Obstetrics & Gynecology
DX: O47.00 False labor before 37 completed weeks of gestation, unspecified trimester (principal); Z3A.00 Weeks of gestation of pregnancy not specified
CPT/HCPCS: 36415; 80053; 84132; 84450; 84460; 84550; 85025; A9270; G0378; G0379

== ENCOUNTER 2023-08-09 09:05 | Emergency (ER) | payer OTHER, MEDICAID, SELFPAY ==
[2023-08-09 09:11] VITALS: BP 113/70; PULSE 79; RESP 16; TEMP 36.7; O2SAT 99
--- NOTE | 2023-08-09 09:31 | ED.URI ---
HPI - URI/Sore Throat General Chief Complaint: Upper Respiratory Infection Stated Complaint: ear/sinus Time Seen by Provider: 08/09/23 09:31 Source: patient Mode of arrival: ambulatory Limitations: no limitations History of Present Illness HPI Narrative: 27-year-old female presented for complaint of sinus pressure congestion with nasal drainage for about 3 days. She endorses bilateral ear pressure. She states she was treated for bilateral ear infection completed a course of antibiotics 2 weeks ago. She denies ear drainage, tinnitus, dizziness, sore throat, nausea vomiting, diarrhea, fevers or chills. She states taking Sudafed and Mucinex did not help. Related Data Home Medications Medication Instructions Recorded Confirmed methylphenidate HCl 18 mg 18 mg PO DAILY 08/09/23 08/09/23 tablet,extended release 24 hr (Concerta) Allergies Allergy/AdvReac Type Severity Reaction Status Date / Time No Known Allergies Allergy Verified 08/09/23 09:22 Review of Systems Review of Systems: CONSTITUTIONAL: Denies body aches, fever, chills, or sweats. EYES: Denies visual changes, redness, or discharge. ENT: Per HPI CARDIOVASCULAR: Denies chest pain, palpitations, or edema. RESPIRATORY: Denies cough or dyspnea. GASTROINTESTINAL: Denies abdominal pain, nausea, vomiting, or diarrhea. SKIN: Denies rash, itching, or wounds. MUSCULOSKELETAL: Denies back pain, joint pain, or myalgia. NEUROLOGIC: Denies headache, numbness, tingling, or weakness. All systems reviewed & are unremarkable except as noted in HPI and below PMFSH Past Medical History Medical History Abnormal glucose tolerance in ADHD Anxiety Depression GERD (gastroesophageal reflux disease) Fabian's disease IBS (irritable bowel syndrome) Vaginal discharge Surgical History Surgical History History of tonsillectomy Family History Family History Father Adenocarcinoma Heart attack High cholesterol Grandparent Cerebrovascular accident Sibling High cholesterol Social History Social History Smoking status: Never smoker Alcohol intake: never Alcohol use details: Occasional Substance use: never Lack of Transportation: No Lack of Food: Never True Current Housing: I Have Housing Concerned About Future Housing: No Difficulty Paying Gas/Electric Bills: No Difficulty Paying for Meds: No Currently Unemployed: No Education: Associate Degree Difficulty w/ Childcare or Family Care: No Living arrangements: other Additional living arrangements comments: Occupation/Education: occupation 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 Please see nursing chart for further information. There is no relevant family history pertinent to the presenting complaint Exam Narrative: GENERAL: Well-appearing EYES: EOMI. No redness or drainage. Conjunctivae normal. ENT: Mucous membranes pink and moist. Nasal congestion. Left TM mildly erythematous with purulent effusion. Right TM normal . Throat normal. Uvula midline. NECK: Normal AROM. Supple. No lymphadenopathy. CHEST: No respiratory distress. Clear to auscultation. HEART: Regular rate and rhythm. No murmur appreciated. Normal peripheral pulses. SKIN: Warm, dry, no rash. Capillary refill normal. Normal skin turgor. NEURO: No focal deficits. Alert and oriented x3. Gait steady. PSYCH: Normal affect. Course Course
== END 2023-08-09 09:40 | disposition home or self-care (01) ==
PROVIDERS: Emergency Provider Nurse Practitioner Family
DX: J06.9 Acute upper respiratory infection, unspecified (principal); K21.9 Gastro-esophageal reflux disease without esophagitis; E06.3 Autoimmune thyroiditis; F90.9 Attention-deficit hyperactivity disorder, unspecified type
CPT/HCPCS: 99213; G0463

== ENCOUNTER 2024-07-21 09:12 | Emergency (ER) | payer OTHER, SELFPAY ==
[2024-07-21 09:20] VITALS: BP 115/65; PULSE 93; RESP 20; TEMP 37.9; O2SAT 100
--- NOTE | 2024-07-21 09:32 | ED_ITS ---
HPI - General Adult General Chief complaint: Upper Respiratory Infection Stated complaint: chest/lower back pain, chills, headache,cough History of Present Illness HPI narrative: patient is a 28-year-old female, past medical history significant for ADHD, presents to the Urgent Care with a 4 day history of fevers, chills, body aches, productive cough, clear nasal drainage and the sensation of postnasal drip. She denies associated chest pain shortness of breath however today she began noticing some discomfort in the right chest and right back she is breathing or coughing. She denies modifying factors prior to arrival. She is not . Related Data Home Medications ?Medication ?Instructions ?Recorded ?Confirmed ?Last Taken ?Type bupropion HCl 150 mg 24 hr tablet, mg PO 05/08/24 06/25/24 Unknown History extended release methylphenidate HCl 18 mg mg PO 06/25/24 06/25/24 Unknown History tablet,extended release 24 hr Allergies Allergy/AdvReac Type Severity Reaction Status Date / Time No Known Allergies Allergy Verified 06/25/24 14:30 Review of Systems Constitutional: Comments: refer to HPI ENT: Comments: Refer to HPI Respiratory: Comments: refer to HPI [facility] Past Medical History Medical History Abnormal glucose tolerance in ADHD Anxiety Depression GERD (gastroesophageal reflux disease) Fabian's disease IBS (irritable bowel syndrome) Vaginal discharge Surgical History Surgical History History of tonsillectomy Family History Family History Father Adenocarcinoma Heart attack High cholesterol Grandparent Cerebrovascular accident Sibling High cholesterol Social History Social History Smoking status: Never smoker Alcohol intake: never Alcohol use details: Occasional Substance use: never Lack of Transportation: No Lack of Food: Never True Current Housing: I Have Housing Concerned About Future Housing: No Difficulty Paying Gas/Electric Bills: No Difficulty Paying for Meds: No Currently Unemployed: No Education: Associate Degree Difficulty w/ Childcare or Family Care: No Living arrangements: other Additional living arrangements comments: Occupation/Education: occupation 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 Gender identity (if verbalized by the patient): Female Sexual Orientation (if Verbalized by the Patient): Straight or Heterosexual Spiritual care concerns: No Exam Const: General: cooperative, healthy appearing, comfortable and no acute distress Nutritional Appearance: average body habitus and well nourished Orientation/consciousness: oriented to person Limitations: no limitations HENMT: Head: normal to inspection Ears: hearing grossly normal bilaterally, external ears normal and TM's normal bilaterally Face/Nose/Sinus: Normal ex ternal nose present, Normal nares present and No nasal polyps present Mouth: Yes Normal oral and palatal mucosa present, Yes lip normal, Yes tongue normal, Yes oropharynx normal and Yes other ( a cobblestone appearance to pharyngeal mucosa) Throat: posterior oropharynx normal, tonsils normal and uvula midline Eyes: General: appearance normal, both eyes and all related structures Visual [place]: normal visual [place]ouston by confrontation Periorbital: periorbital findings normal Eyelids: eyelids normal Conjunctivae: conjunctivae normal Sclera: sclerae normal Cornea: corneas normal EOM: EOMs intact bilaterally Neck: Neck: normal visual inspection, full ROM, no lymphadenopathy, no meningeal signs and trachea midline Thyroid: thyroid normal Carotids: normal carotid upstroke Lymphatic: no lymphadenopathy noted Resp: Effort & Inspection: normal respiratory effort Auscultation: clear to auscultation bilaterally Percussion: percussion normal Other: patient's cough is harsh when present Cardio: Palpation: normal PMI Rate: regular rate Rhythm: regular rhythm Heart sounds: S1 normal heart sound present and S2 normal heart sound present Peripheral pulses: Peripheral pulses 2+ throughout GI: GI Palp: Yes abdominal tenderness Percussion: Yes normal to percussion Auscultation: normal bowel sounds Back/Spine/Pelvis: Back: no CVA tenderness Skin: General skin exam: normal color and no rashes or lesions noted Les ions: no lesions Rashes: no rashes Trauma: no lacerations or abrasions Wounds: no wounds Neuro: General: oriented to person, oriented to place, oriented to time and patient oriented x3 Cranial nerves: Yes CN's II-XII intact bilaterally Gait exam (Neuro): Normal gait present Motor exam (neuro): 5/5 motor strength present throughout Course Course Emergency Course: patient is symptomatic for URI however given CDC's recommendation of empiric treatment with high incidence or risk for mycoplasma pneumoniae in the general community, will treat empirically with Zithromax, will additionally add short steroid course and cough suppressant for added symptom relief. Close PCP follow-up is stressed in 3 days if symptoms not improving, ER if condition worsens in any way with any further emergency concerns. Patient agreeable with plan Level of Care: Express Care Visit (62180) Vital Signs Vital signs: Vital Signs Temperature 37.9 C H 07/21/24 09:20 Pulse Rate 93 07/21/24 09:20 Respiratory Rate 20 07/21/24 09:20 Blood Pressure 115/65 07/21/24 09:20 Pulse Oximetry 100 07/21/24 09:20 Oxygen Delivery Room Air 07/21/24 09:20 Temperature 37.9 C H 07/21/24 09:20 Pulse Rate 93 07/21/24 09:20 Respiratory Rate 20 07/21/24 09:20 Blood Pressure 115/65 07/21/24 09:20 Pulse Oximetry 100 07/21/24 09:20 Oxygen Delivery Room Air 07/21/24 09:20 Medical Decision Making [facility] Narrative Medical decision making narrative: Zithromax, prednisone, promethazine DM Differential Diagnosis Differential Diagnosis: pneumonia, URI, viral syndrome, bronchitis Vital Signs Vital Signs: Vital Signs Temperature 37.9 C H 07/21/24 09:20 Pulse Rate 93 07/21/24 09:20 Respiratory Rate 20 07/21/24 09:20 Blood Pressure 115/65 07/21/24 09:20 Pulse Oximetry 100 07/21/24 09:20 Oxygen Delivery Room Air 07/21/24 09:20 Temperature 37.9 C H 07/21/24 09:20 Pulse Rate 93 07/21/24 09:20 Respiratory Rate 20 07/21/24 09:20 Blood Pressure 115/65 07/21/24 09:20 Pulse Oximetry 100 07/21/24 09:20 Oxygen Delivery Room Air 07/21/24 09:20 Discharge Plan Discharge Clinical Impression: Bronchitis Patient Disposition: Home, Self-Care Condition: Stable Instructions: Antibiotic Form Additional Instructions: START AND COMPLETE ORAL ANTIBIOTICS OR STEROIDS PRESCRIBED. USE COUGH SUPPRESSANTS DIRECTED FOR ADDED SYMPTOM RELIEF. YOU MAY CONTINUE TYLENOL AND/OR IBUPROFEN DIRECTED [id number] FOR FREE FOR REDUCTION. PUSH FLUIDS AND REST. FOLLOW UP WITH YOUR PRIMARY DOCTOR IN 3 DAYS IF SYMPTOMS ARE NOT IMPROVING, ER IF CONDITION WORSENS IN ANY WAY Patient Language: Gibraltarian Prescriptions: New prednisone 20 mg tablet 40 mg PO DAILY 5 Days Qty: 10 0RF promethazine-DM 6.25-15 mg/5 mL syrup 5 ml PO Q4-6H PRN (Reason: cough) Qty: 118 0RF azithromycin [Zithromax] 500 mg tablet 500 mg PO DAILY 5 Days Qty: 5 0RF No Action bupropion HCl 150 mg tablet extended release 24 hr PO methylphenidate HCl 18 mg tablet extended release 24hr PO Follow-up/Referrals: PHYSICIAN NOT ON STAFF,NONSTAFF [Primary Care Provider] - Stand Alone Forms: Work/School Release IP Time of Disposition: 09:42
--- OUTSIDE RECORDS SUMMARY | 2024-07-28 05:09 | XMS_ITS | Encounter Summary ---
Author Organization [facility] Address [address] [place] [address] Phone Care Team Providers Care Care Transitions Manager Name Role Phone Bessy Alcaraz APRN, WOOD PANEL INSPECTOR Unavailable [phone] Bessy Alcaraz APRN, WOOD PANEL INSPECTOR Primary Care Provid er Molly Costello APRN, WOOD PANEL INSPECTOR Unavailable Reason for Referral * Radiology Services (Routine) - Closed Specialty Diagnoses / Procedures Referred By Contac t Referred To Contact Radiology Diagnoses Abnormal uterine bleeding Procedures US PELVIS COMPLETE WITH TRANSVAGINAL Trini Kim MD [address] [place] [address] [address] [place] [id number] Phone: tel: fax: Referral ID Status Reason Start Date Expiration Date Visits Re quested Visits Authorized [id number] Closed 06/04/2024 1 1 P COLLECTOR Reason for Visit * Radiology Services (Routine) - Closed Specialty Diagnoses / Procedures Referred By Contac t Referred To Contact Radiology Diagnoses Abnormal uterine bleeding Procedures US PELVIS COMPLETE WITH TRANSVAGINAL Trini Kim MD [address] [place] [address] DR [address] [place] [id number] Phone: tel: fax: Referral ID Status Reason Start Date Expiration Date Visits Re quested Visits Authorized [id number] Closed 06/04/2024 1 1 Encounter Details Date Type Department Care Team (Latest Contact Info) Description 07/01/2024 4:19 PM STAMP COLLECTOR - 07/01/2024 11:59 PM STAMP COLLECTOR Hospital Encounter [facility] Ultrasound [address] [place] [id number] Trini Kim MD [address] [facility] [place] [address] Discharge Disposition: Discharged to home or Selfcare Social History Tobacco Use Types Packs/Day Years Used Date Smoking Tobacco: Never Smokeless Tobacco: Never Alcohol Use Standard Drinks/Week Comments Yes 0 (1 standard drink = 0.6 oz pur e alcohol) Rarely [facility] Utilities Answer Date Recorded In the past 12 months has th e electric, gas, oil, or water company threatened to shut off services in your home? No 06/03/2024 Social Connection and Isolation Panel [NHANES] A nswer Date Recorded In a typical week, how many times do you talk on the phone with family, friends, or neighbors? Patient declined 06/03/2024 How often do you get togethe r with friends or relatives? Patient declined 06/03/2024 How often do you attend sabianism or zoroastrian serv ices? Patient declined 06/03/2024 Do you belong to any clubs o r organizations such as sabianism groups, unions, fraternal or athletic groups, or school groups? No 06/03/2024 How often do you attend meet ings of the clubs or organizations you belong to? Patient declined 06/03/2024 Are you , , di vorced, , never , or living with a partner? Patient declined 06/03/2024 AUDIT-C Answer Date Recorded Q1: How often do you have a drink containing alcohol? Monthly or less 06/03/2024 Q2: How many drinks containi ng alcohol do you have on a typical day when you are drinking? Patient does not drink Q3: How often do you have si x or more drinks on one occasion? Never 06/03/2024 Overall Financial Resource Strain (CARDIA) Answe r Date Recorded How hard is it for you to pa y for the very basics like food, housing, medical care, and heating? Patient declined 06/03/2024 PHQ-2 Answer Date Recorded Total Score - Questions 1-9 0 05/24 [facility] - Occupational Stress Questionnaire Answer Date Recorded Do you feel stress - tense, restless, nervous, or anxious, or unable to sleep at night because your mind is troubled all the time - these days? Patient declined 06/03/2024 Exercise Vital Sign Answer Date Recorde d On average, how many days pe r week do you engage in moderate to strenuous exercise (like a brisk walk)? Patient declined On average, how many minutes do you engage in exercise at this level? Patient declined 06/03/2024 Hunger Vital Sign Answer Date Recorded Within the past 12 months, y ou worried that your food would run out before you got the money to buy more. Patient declined Within the past 12 months, t he food you bought just didn't last and you didn't have money to get more. Patient declined 05/2024 PRAPARE - Transportation Answer Date Re corded In the past 12 months, has l ack of transportation kept you from medical appointments or from getting medications? No 05/24 In the past 12 months, has l ack of transportation kept you from meetings, work, or from getting things needed for daily living? No 06/03/2024 Housing Stability Vital Sign Answer Harley e Recorded In the last 12 months, was t here a time when you were not able to pay the mortgage or rent on time? No 11/27/2023 Number of Places Lived in the Last Year Not on f ile 11/27/2023 In the last 12 months, was t here a time when you did not have a steady place to sleep or slept in a senior living (including now)? No 11/27/2023 Housing Stability Vital Sign Answer Harley e Recorded In the last 12 months, was t here a time when you were not able to pay the mortgage or rent on time? No 06/03/2024 Number of Times Moved in the Last Year Not on fi le 06/03/2024 At any time in the past 12 m [facility], were you homeless or living in a senior living (including now)? No 06/03/2024 Education Answer Date Recorded What is the highest level of school you have completed or the highest degree you have received? Associate degree: occupational, technical, or vocational program 11/29/2022 Sexually Active Control Partners Comments Yes I.U.D. Male Comments No Sex and Gender Information Value Date Recorded Sex Assigned at Not on file Legal Sex Female 3:47 PM CDT Gender Identity Not on file Sexual Orientation Not on file documented as of this encounter Medications at Time of Discharge buPROPion (WELLBUTRIN) 150 MG XL tabletIndications:A ttention deficit hyperactivity disorder (ADHD), combined type Take 1 Tablet by mouth every morning. 90 Tablet 1 03/05/2024 4 Lisdexamfetamine Dimesylate 30 MG CapsuleIndications: Attention deficit hyperactivity disorder (ADHD), unspecified ADHD type Take 1 Capsule by mouth daily. 30 Capsule 06/11/2024 4 documented as of this encounter Plan of Treatment Upcoming Encounters Date Type Department Care Team (Late st Contact Info) Description 08/19/2024 8:45 AM STAMP COLLECTOR Office Visit [facility] - [facility] Medicine [facility] [address] [place] [address] Bessy Alcaraz APRN, WOOD PANEL INSPECTOR [address] [phone] documented as of this encounter Goals Goal Patient Goal Type Associated Problems Recent Progress Patient-Stated? Author Behavioral Health Behavioral Health On track( 023 4:31 PM CDT) Yes Agapito Cuenca, CHIEF MECHANICAL ENGINEER Note: I want to cope better with grief and depression over mom's and other issues Goal/Objective: Decrease grieving. Anticipated Time Frame for Goal Completion: 6 months Goal Reviewed with: patient Readiness to change: Ready to change Department associated with goal: [facility] Steps to achieve goal: 1. will attend at least 6 counseling sessions either individual and/or group 1x/mo, engaging in each session by verbalizing and processing thoughts and feelings related to grief and loss. 2. will report reduced feelings of guilt and resentment. 3. will identify and implement at least two outlets for grief and or coping skills to aid in managing problematic responses to grief. documented as of this encounter Procedures Procedure Name Priority Date/Time Associated Diagnosis Comments US PELVIS COMPLETE WITH TRANSVAGINAL Routine 07/01/2024 5:12 PM STAMP COLLECTOR Abnormal uterine bleeding documented in this encounter Results * US PELVIS COMPLETE WITH TRANSVAGINAL (07/01/2024 5:12 PM STAMP COLLECTOR) Anatomical Region Laterality Modality Abdomen N/A Ultrasound 07/06/2024 1:53 AM STAMP COLLECTOR Impressions 07/06/2024 1:56 AM STAMP COLLECTOR IMPRESSION: No acute abnormality. Narrative 07/06/2024 1:56 AM STAMP COLLECTOR EXAM DESCRIPTION: ?? US PELVIS COMPLETE WITH TRANSVAGINAL REASON FOR STUDY: ?? Abnormal uterine bleeding TECHNIQUE: Grayscale ultrasound of the pelvic contents was performed with ??transabdominal and transvaginal ??transducer. ?? COMPARISON: None FINDINGS: UTERUS: ?? The uterus is anteverted. ??The uterus is ?? homogenous ??in echotexture and measures ??6.3 cm x 5 cm x 4 ??cm. ?? Small nabothian cysts are seen in the cervix. ENDOMETRIUM: The endometrium measures ??3 mm ??in thickness. RIGHT OVARY: The right ovary measures ??2.1 cm x 1.5 cm x 3.3 ??cm. ?? There is documentation of color Doppler flow in the right ovary. The right ovary contains multiple small follicles. LEFT OVARY: The left ovary measures ??1.8 cm x 1.6 cm x 2.1 ??cm. ?? There is documentation of color Doppler flow in the left ovary. ??The left ovary contains multiple small follicles. PELVIC FLUID: ?? There is no evidence of free fluid in the pelvis. OTHER: ?? No other significant findings. THIS IS AN ELECTRONICALLY VERIFIED FINAL REPORT 07/06/2024 1:53 AM - Electronically signed by ??Rd Jones M.D. KT: MURRAY D: ??07/06/2024 1:53 AM T: ??07/06/2024 1:53 AM Report ID: [id number] Reading Location: ??[id number] Procedure Note [address] Jones MD - 07/06/2024 EXAM DESCRIPTION: US PELVIS COMPLETE WITH TRANSVAGINAL REASON FOR STUDY: Abnormal uterine bleeding TECHNIQUE: Grayscale ultrasound of the pelvic contents was performed with transabdominal and transvaginal transducer. COMPARISON: None FINDINGS: UTERUS: The uterus is anteverted. The uterus is homogenous in echotexture and measures 6.3 cm x 5 cm x 4 cm. Small nabothian cysts are seen in the cervix. ENDOMETRIUM: The endometrium measures 3 mm in thickness. RIGHT OVARY: The right ovary measures 2.1 cm x 1.5 cm x 3.3 cm. There is documentation of color Doppler flow in the right ovary. The right ovary contains multiple small follicles. LEFT OVARY: The left ovary measures 1.8 cm x 1.6 cm x 2.1 cm. There is documentation of color Doppler flow in the left ovary. The left ovary contains multiple small follicles. PELVIC FLUID: There is no evidence of free fluid in the pelvis. OTHER: No other significant findings. THIS IS AN ELECTRONICALLY VERIFIED FINAL REPORT 07/06/2024 1:53 AM - Electronically signed by Rd Jones M.D. KT: MURRAY Report ID: [id number] Reading Location: [id number] IMPRESSION: No acute abnormality. Trini Kim MD [facility] [place] US ORDERABLES Final Result documented in this encounter Visit Diagnoses Diagnosis Abnormal uterine bleeding Unspecified disorder of menstruation and other abnormal bleeding from female genital tract documented in this encounter Additional Health Concerns Assessment Noted Time PHQ-9 Depression Total Score: 0 06/04/20 24 7:38 AM STAMP COLLECTOR documented as of this encounter Care Teams Care Transitions Manager Relationship Specialty Start Date End Date Bessy Alcaraz APRN, CNP #[address] [phone] PCP - General Advanced Practice Nurse 10/30/20 Bessy Alcaraz APRN, CNP [address] [phone] Nurse Practitioner Advanced Practice Nurse 10/28/20 Molly Costello APRN, WOOD PANEL INSPECTOR [address] [place] [address] Nurse Practitioner Advanced Practice Nurse 10/05/23 documented as of this encounter
--- OUTSIDE RECORDS SUMMARY | 2024-07-28 05:09 | XMS_ITS | Referral Summary ---
Author Organization [facility] Address [address] [place] [address] Care Team Providers Care Director Of Cardiac Cath Lab Name Role Phone Unavailable Primary Care Provider Unavailabl e Source Comments [facility],non-owned Affiliates and Associated Physician Practices is amultiple site organization consisting of ambulatory clinics and hospital sitesin [place], [place], [place]. This disclosure is being madepursuant to the Care Everywhere program and may not contain all information available regarding this patient. Last updated 18.[facility] Allergies No known active allergies Medications Be aware that medications may not be up to date on this document. Always verify current medications with the patient. No known medications Active Problems Problem Noted Date Diagnosed Date Temporomandibular joint (TMJ) pain 08/14/2020 Immunizations Name Administration Dates Next Due INFLUENZA 04/24/2020 Social History Tobacco Use Types Packs/Day Years Used Date Smoking Tobacco: Never Smokeless Tobacco: Never Sex and Gender Information Value Date Recorded Sex Assigned at Not on file Gender Identity Not on file Sexual Orientation Not on file Last Filed Vital Signs Vital Sign Reading Time Taken Comments Blood Pressure 127/78 08/14/2020 3:19 PM TOMATO PASTE MAKER Pulse 82 08/14/2020 3:19 PM TOMATO PASTE MAKER Temperature 37 ??C (98.6 ??F) 08/14/2020 3:19 PM TOMATO PASTE MAKER Respiratory Rate 16 08/14/2020 3:19 PM TOMATO PASTE MAKER Oxygen Saturation - - Inhaled Oxygen Concentration - - Weight 87.1 kg (192 lb) 08/14/2020 3:19 PM TOMATO PASTE MAKER Height 157.5 cm (5' 2 ) 08/14/2020 3:19 PM TOMATO PASTE MAKER Body Mass Index 35.12 08/14/2020 3:19 PM TOMATO PASTE MAKER Plan of Treatment Not on file Administered Medications Insurance Payer Benefit Plan / Group Subscriber ID Effective Dates Phone Address Type [facility] CHOICE/SELEC T/CHOICE PLUS/ALL PAYORS [id number] 12/27/2022-Pres ent [address] [address] [place] [address] [facility] [id number] Effective for all dates [address] [place] [address] Medicaid [place] MEDICA[place] - OUT OF STATE MEDICAID - [place] PUBLIC [place] [id number] Effective for all dates [address] [address] [place] [address] Medicaid [facility] [id number] Effective for all dates [address] [place] [address] [place] [facility] [id number] Effective for all dates [address] [place] [address] [place] [facility] [id number] Effective for all dates [address] [place] [address] [place] [facility] [id number] Effective for all dates [address] [place] [address] [place] [facility] [id number] Effective for all dates [address] [place] [address] [place] [facility] [id number] Effective for all dates [address] [place] [address] [place] [facility] [id number] Effective for all dates [address] [place] [address] [place] [facility] [id number] Effective for all dates [address] [place] [address] [place] [facility] [id number] Effective for all dates [address] [place] [address] [place] [facility] [id number] Effective for all dates [address] [place] [address] [place] [facility] [id number] Effective for all dates [address] [place] [address] [place] [facility] [id number] Effective for all dates [address] [place] [address] [facility] [id number] Effective for all dates [address] [place] [address] [facility] [id number] Effective for all dates [address] [place] [address] Medicaid [facility] [id number] Effective for all dates [address] [place] [address] Medicaid [facility] [id number] Effective for all dates [address] [place] [address] Medicaid [facility] [id number] Effective for all dates [address] [place] [address] Medicaid [facility] [id number] Effective for all dates [address] [place] [address] Medicaid [facility] [id number] Effective for all dates [address] [place] [address] Medicaid [facility] [id number] Effective for all dates [address] [place] [address] Medicaid [facility] [id number] Effective for all dates [address] [place] [address] Medicaid [facility] [id number] Effective for all dates [address] [place] [address] Medicaid [facility] [id number] Effective for all dates [address] [place] [address] Medicaid [facility] [id number] Effective for all dates [address] [place] [address] Medicaid [facility] [id number] Effective for all dates [address] [place] [address] Medicaid [place] [facility] [id number] Effective for all dates [address] [place] [address] Medicaid [facility] [id number] Effective for all dates [address] [place] [address] Medicaid [facility] [id number] Effective for all dates [address] [place] [address] Medicaid [facility] [id number] Effective for all dates [address] [place] [address] Medicaid [facility] [id number] Effective for all dates [address] [place] [address] Medicaid [facility] [id number] Effective for all dates [address] [place] [address] Medicaid [facility] [id number] Effective for all dates [address] [place] [address] Medicaid [place] [facility] [id number] Effective for all dates [address] [place] [address] Medicaid [place] [facility] [id number] Effective for all dates [address] [place] [address] Medicaid [facility] [id number] Effective for all dates [address] [place] [address] Medicaid [facility] [id number] Effective for all dates [address] [place] [address] Medicaid [facility] [id number] Effective for all dates [address] [place] [address] Medicaid [facility] [id number] Effective for all dates [address] [place] [address] Medicaid [facility] [id number] Effective for all dates [address] [place] [address] Medicaid [facility] [id number] Effective for all dates [address] [place] [address] Medicaid [facility] [id number] Effective for all dates [address] [place] [address] [place] [id number] Effective for all dates [address] [address] [place] [address] [place] SHAYNA PEREZ Personal/Family Other [facility] [place] [address] SHAYNA PEREZ Personal/Family Other [address] [place] [address] ANASHAYNA L Personal/Family Other [address] [place] [address] ANASHAYNA L Personal/Family Other [address] [place] [address] ANASHAYNA L Personal/Family Other [address] [place] [address] ANASHAYNA L Personal/Family Other [address] [place] [address] ANASHAYNA L Personal/Family Other [address] [place] [address] ANASHAYNA L Personal/Family Other [address] [place] [address] ANASHAYNA L Personal/Family Other [address] [place] [address] ANASHAYNA L Personal/Family Other [address] [place] [address] ANASHAYNA L Personal/Family Other [address] [place] [address] ANASHAYNA L Personal/Family Other [address] [place] [address] ANASHAYNA L Personal/Family Other [address] [place] [address] ANASHAYNA L Personal/Family Other [address] [place] [address] ANASHAYNA L Personal/Family Other [address] [place] [address] ANASHAYNA L Personal/Family Other [address] [place] [address] ANASHAYNA L Personal/Family Other [address] [place] [address] ANASHAYNA L Personal/Family Other [address] [place] [address] ANASHAYNA L Personal/Family Other [address] [place] [address] ANASHAYNA L Personal/Family Other [address] [place] [address] PEREZ,SHAYNA L Personal/Family Other [address] [place] [address] ANASHAYNA L Personal/Family Other [address] [place] [address] ANASHAYNA L Personal/Family Other [address] [place] [address] ANASHAYNA L Personal/Family Other [address] [place] [address] ANASHAYNA L Personal/Family Other [address] [place] [address] ANASHAYNA L Personal/Family Other [address] [place] [address] ANASHAYNA L Personal/Family Other [address] [place] [address] ANASHAYNA L Personal/Family Other [address] [place] [address] ANASHAYNA L Personal/Family Other [address] [place] [address] ANASHAYNA L Personal/Family Other [address] [place] [address] ANASHAYNA L Personal/Family Other [address] [place] [address] NAASHAYNA L Personal/Family Other [address] [place] [address] ANA,SHAYNA L Personal/Family Other [address] [place] [address] ANASHAYNA L Personal/Family Other [address] [place] [address] PEREZ,SHAYNA L Personal/Family Other [address] [place] [address] SHAYNA PEREZ Personal/Family Other [address] [place] [address] DREW PEREZDA Ede Personal/Family Other [address] [place] [address] SHAYNA PEREZ Personal/Family Other [address] [place] [address] DREW PREEZDA L Personal/Family Other [address] [place] [address] SHAYNA PEREZ Personal/Family Other [address] [place] [address] SHAYNA PEERZ Personal/Family Other [address] [place] [address] Cee March Personal/Family Spouse [address] [place] [address] Cee March Personal/Family Self [address] [facility] [place] [address] SHAYNA PEREZ Personal/Family Other [address] [place] [address] SHAYNA PEREZ Personal/Family Other [facility] [place] [address]
--- OUTSIDE RECORDS SUMMARY | 2024-07-28 05:09 | XMS_ITS | Encounter Summary ---
Author Organization [facility] Address [address] [place] [address] Care Team Providers Care Sweatband Maker Name Role Phone Unavailable Primary Care Provider Unavailabl e Encounter Details Date Type Department Care Team (Latest Contact Info) Description 12/19/2019 Travel Social History Tobacco Use Types Packs/Day Years Used Date Smoking Tobacco: Never Assessed Sex and Gender Information Value Date Recorded Sex Assigned at Not on file Gender Identity Not on file Sexual Orientation Not on file COVID-19 Exposure Response Date Recorded In the last month, have you been in contact with someone who was confirmed or suspected to have Coronavirus / COVID-19? No / Unsure 12/19/2019 3:00 PM CDT documented as of this encounter Plan of Treatment Not on file documented as of this encounter Visit Diagnoses Not on filedocumented in this encounter
--- OUTSIDE RECORDS SUMMARY | 2024-07-28 05:09 | XMS_ITS | Encounter Summary ---
Author Organization [facility] Address [address] [facility] [place] [address] Care Team Providers Care Head Cook Name Role Phone Unavailable Primary Care Provider Unavailabl e Reason for Visit * Reason Comments Establish Care jaw pain consult Encounter Details Date Type Department Care Team (Latest Contact Info) Description 08/14/2020 3:30 PM LITERACY SPECIALIST Office Visit [facility] [address] [place] [address] Tristian Moss MD [address] [facility] [address] [facility] [place] [address] Arthritis of both temporomandibular joints (Primary Dx) Social History Tobacco Use Types Packs/Day Years Used Date Smoking Tobacco: Never Smokeless Tobacco: Never Sex and Gender Information Value Date Recorded Sex Assigned at Not on file Gender Identity Not on file Sexual Orientation Not on file documented as of this encounter Last Filed Vital Signs Vital Sign Reading Time Taken Comments Blood Pressure 127/78 08/14/2020 3:19 PM LITERACY SPECIALIST Pulse 82 08/14/2020 3:19 PM LITERACY SPECIALIST Temperature 37 ??C (98.6 ??F) 08/14/2020 3:19 PM LITERACY SPECIALIST Respiratory Rate 16 08/14/2020 3:19 PM LITERACY SPECIALIST Oxygen Saturation - - Inhaled Oxygen Concentration - - Weight 87.1 kg (192 lb) 08/14/2020 3:19 PM LITERACY SPECIALIST Height 157.5 cm (5' 2 ) 08/14/2020 3:19 PM LITERACY SPECIALIST Body Mass Index 35.12 08/14/2020 3:19 PM LITERACY SPECIALIST documented in this encounter Progress Notes * Rakan Guzman MD - 08/14/2020 6:05 PM CST Plastic Surgery History and Physical Note Attending: Dr. Moss Name: Cee Mera Luis Carlos Date: 08/14/20 Chief Complaint: Chief Complaint Patient presents with ??? Establish Care jaw pain consult HPI: 24yo F who presents with baseline jaw asymmetry and asymmetric jaw opening 2 years after wisdom teeth extraction. Patient states that two years ago she saw a [place] [facility] who performed bilateral wisdomteeth extraction. Resulted in significant pain and discomfort in her bilateral jaws. She also believes her jaw became asymmetric at this time. She has an MRI that shows arthritis in her jaw . She states she used to have constant pain in her jaw, which also clicks whenever she opens it. She no longer has pain as she has gotten used to it. No prior facial surgeries. Thinks she may have broken her jaw at age 6 but isnt sure. Otherwise doing well without acute complaints. Non smoker. No blood thinn ers. Review of Systems General ROS: negative Psychological ROS: negative Ophthalmic ROS: negative Allergy and Immunology ROS: negative Hematological and Lymphatic ROS: negative Endocrine ROS: hypothyroidism Breast ROS: negative Respiratory ROS: negative Cardiovascular ROS: negative Gastrointestinal ROS: GERD, constipation Genito-Urinary ROS: negative Musculoskeletal ROS: see HPI Neurological ROS: negative Dermatological ROS: negative Past Medical History: Past Medical History: Diagnosis Date ??? Constipation ??? GERD (gastroesophageal reflux disease) ??? Hypothyroidism ??? IBS (irritable bowel syndrome) Past Surgical History: Past Surgical History: Procedure Laterality Date ??? Tonsillectomy Medications: No current outpatient medications on file. Allergies: No Known Allergies Family History: Family History Problem Relation Name Age of Onset ??? None Known Mother ??? Cancer - Other Father Social History: Social History Tobacco Use ??? Smoking status: Never Smoker ??? Smokeless tobacco: Never Used Substance Use Topics ??? Alcohol use: Not on file ??? Drug use: Not on file Objective: Vitals: 08/14/20 1519 BP: 127/78 Pulse: 82 Resp: 16 Temp: 98.6 ??F (37 ??C) Weight: 192 lb (87.1 kg) Height: 5' 2 (1.575 m) Estimated body mass index is 35.12 kg/m?? as calculated from the following: Height as of this encounter: 5' 2 (1.575 m). Weight as of this encounter: 192 lb (87.1 kg). Gen: Alert and cooperative, NAD Head and Face: -At rest patients mandibular midline if 4mm to the left of her facial midline -Patient has a left sided crossbite -JOSUE ~3cm -Patients mandible opens asymmetrically with increased ROM and excursion on the left (mandible deviates to the left at rest, but swings to the right on opening) -Palpable clicking of the right TMJ distribution Lungs: NLB on room air CV: RR Abd: Soft Ext: WWP Assessment/Plan: 24yo F with bilateral TMJ discomfort and mandibular asymmetry - Given patients prior history, will refer her to see OMS who specializes in TMJ - Referral to Dr. Samano at [facility] provided - FU PRN Patient seen and discussed with Dr. Isa Guzman MD 08/14/2020 6:06 PM RACY SPECIALIST * Tristian Moss MD - 08/14/2020 3:48 PM CST Attending Physician Supervisory Note I personally interviewed and examined the patient and agree with the doctor above. She presents with a two year history of TMJ pain that is improving. She notes a anterior crossbite and decreased chewing power. She notes this started ~2 years ago after third molar surgery. She has had an MRI. On exam, the patient is well appearing. The mandible midline is shifted to the left. There is a crossbite. The jaw deviated on opening. There is decreased TMJ joint excursion on the right. I discussed thatthis is likely a TMJ joint related issue. I am going to refer her to [facility] Surgery. Tristian Moss MD RACY SPECIALIST documented in this encounter Plan of Treatment Not on file documented as of this encounter Visit Diagnoses Diagnosis Arthritis of both temporomandibular joints- Primary documented in this encounter
--- OUTSIDE RECORDS SUMMARY | 2024-07-28 05:09 | XMS_ITS | Clinical Summary ---
Author Organization [facility] Address [address] [address] Phone Care Team Providers Care Golf Instructor Name Role Phone Bessy Alcaarz APRN, ARAM Unavailable [phone]- [phone] Bessy Alcaraz APRN, CNP Primary Care Provid er Molly Costello APRN, FURNITURE UPHOLSTERER Unavailable Allergies Active Allergy Reactions Criticality Noted Date Comments Etonogestrel-Ethinyl Estradiol Swelling High 04/05 Latex Other (see Comments) High 04/05/2024 Medications Vyvanse 50 MG CapsuleIndication s:Attention deficit hyperactivity disorder (ADHD), unspecified ADHD type Take 1 Capsule by mouth daily. 30 Capsule 4 Active buPROPion (Wellbutrin XL) 300 MG TABLET SR 24 HR XL tablet Take 1 Tablet by mouth every morning. 90 Tablet 4 Active buPROPion (WELLBUTRIN) 150 MG XL tabletIndications :Attention deficit hyperactivity disorder (ADHD), combined type Take 1 Tablet by mouth every morning. 90 Tablet 1 4 07/08/20 24 Discontinu ed(Error) Lisdexamfetamine Dimesylate 30 MG CapsuleIndication s:Attention deficit hyperactivity disorder (ADHD), unspecified ADHD type Take 1 Capsule by mouth daily. 30 Capsule 4 07/08/20 24 Discontinu ed(Error) Active Problems Problem Noted Date Diagnosed Date MDD (major depressive disord er), recurrent episode, moderate 02/02/2022 Generalized anxiety disorder 02/02/2022 PTSD (post-traumatic stress disorder) 02/02/2022 Disordered eating 02/02/2022 History of iron deficiency anemia 05/06/2020 06/13/2023 Depressive disorder 03/10/2020 06/13/2023 Irritable bowel syndrome 07/02/2019 023 Acute cervicitis 02/21/2019 06/13/2023 Encounters Date Type Department Care Team Description 07/01/2024 4:19 PM WANT AD RECEIVER - 07/01/2024 11:59 PM WANT AD RECEIVER [facility] Ultrasound [address] [place] [address] Trini Kim MD Discharge Disposition: Discharged to home or Selfcare 07/01/2024 Travel 06/17/2024 Telephone [facility] [place] [facility] [place] [address] Tristian Bella MD 06/11/2024 Telephone [facility] [place] [facility] [place] [address] Tristian Bella MD 06/07/2024 Telephone [facility] [place] [address] [place] [address] Tristian Bella MD 06/06/2024 Telephone [facility] [place] [address] [place] [address] Tristian Bella MD 06/04/2024 7:30 AM WANT AD RECEIVER Office Visit [facility] [place] [address] [place] [address] Tristian Bella MD Attention deficit hyperactivity disorder (ADHD), unspecified ADHD type (Primary Dx); Attention deficit hyperactivity disorder (ADHD), combined type Discharge Disposition: Discharged to home or Selfcare 06/04/2024 Transcribe Orders [facility] Central Scheduling 1 [facility] [place] [address] Trini Kim MD Abnormal uterine bleeding (Primary Dx) 06/03/2024 Travel from Last 3 Months Immunizations Immunization Administration Dates Next Due Covid-19, Mrna, Lnp-s, Pf, 3 0 Mcg/0.3 Ml Dose (Pfizer) 12/26/2020,12/05/2020 DTP-Hib 06/24/1997,04/17/1997,02/11/1997 Hepatitis A, Pediatric, Unsp ecified Formulation 11/03/2008 Hepatitis B Vaccine, Pediatric/adolescent 06/24/1997,02/11/1997,1996 Human Papillomavirus (HPV) 9 -valent Vaccine 07/04/2019,02/25/2019,09/21/2018,02/11 Influenza Vaccine less than 3 yrs 05/08/2024 Influenza Vaccine, Quadrivalent, PF 05/22/2023,1 ,05/17/2019 Influenza Vaccine,unspecifie d Formulation 04/24/2020 Meningococcal C Conjugate Vaccine 11/03/2008 Meningococcal Vaccine 04/22/2015 OPV 04/17/1997,02/11/1997 TDAP Vaccine 11/01/2022 Varicella Vaccine Live 11/03/2008 Family History Medical History Relation Name Comments Depression Brother 1 Lucas Anxiety disorder Brother 2 Noel Depression Brother 2 Noel Bipolar Disorder Father Skipper Heart Attack Father Skipper High Cholesterol Father Skipper Other-comment Father Skipper adenocarcinoma head/neck: Mucuosal carcinoma Anxiety disorder Maternal Aunt Hypertension Maternal Aunt Hypothyroidism Maternal Aunt Hypothyroidism Maternal Grandmother Bipolar Disorder Mother Laura Chronic Obstructive Pulmonary Disease Mother Laura Drug Abuse Mother Laura Hepatitis Mother Laura B Lung Cancer Paternal Aunt Stroke Paternal Aunt Lung Cancer Paternal Grandmother Lung Cancer Paternal Uncle Stroke Paternal Uncle Relation Name Status Comments Brother 1 Lucas Alive Brother 2 Noel Alive Father Skipper Maternal Aunt Maternal Grandfather Maternal Grandmother Alive Mother Laura Alive Paternal Aunt Paternal Grandfather Paternal Grandmother brain c ancer Paternal Uncle Social History Tobacco Use Types Packs/Day Years Used Date Smoking Tobacco: Never Smokeless Tobacco: Never Tobacco Cessation:Counseling Given: No Alcohol Use Standard Drinks/Week Comments Yes 0 (1 standard drink = 0.6 oz pur e alcohol) Rarely [facility] Utilities Answer Date Recorded In the past [...] declined 06/03/2024 How often do you attend catholic or zoroastrianism serv ices? Patient declined 06/03/2024 Do you belong to any clubs o r organizations such as catholic groups, unions, fraternal or athletic groups, or [...] Total Score - Questions 1-9 0 05/24 [facility] of Occupat ional Health - Occupational Stress Questionnaire Answer Date Recorded [...] place to sleep or slept in a fpc (including now)? No 11/27/2023 Housing Stability Vital Sign Answer Harley e Recorded In the last 12 months, was t here a time when you were not able to pay the mortgage or rent on time? No 06/03/2024 Number of Times Moved in the Last Year Not on fi le 06/03/2024 At any time in the past [facility], were you homeless or living in a fpc (including now)? No 06/03/2024 Education Answer Date [...] Sign Reading Time Taken Comments Blood Pressure 118/74 06/04/2024 7:31 AM WANT AD RECEIVER Pulse 92 06/04/2024 7:31 AM WANT AD RECEIVER Temperature 36.1 ??C (96.9 ??F) 06/04/2024 7:31 AM CS T Respiratory Rate 16 06/04/2024 7:31 AM WANT AD RECEIVER Oxygen Saturation 97% 06/04/2024 7:31 AM WANT AD RECEIVER Inhaled Oxygen Concentration - - Weight 82.6 kg (182 lb) 06/04/2024 7:31 AM WANT AD RECEIVER Height 165.1 cm (5' 5 ) 06/04/2024 7:31 AM WANT AD RECEIVER Body Mass Index 30.29 06/04/2024 7:31 AM WANT AD RECEIVER Plan of Treatment Upcoming Encounters Date Type Department Care Team (Late st Contact Info) Description 08/19/2024 8:45 AM WANT AD RECEIVER Office Visit [facility] - [facility] - [place] [address] [place] [address] Bessy Alcaraz, RED, FURNITURE UPHOLSTERER [address] [phone] Health Maintenance Due Date Last Done Comments SARS-COV-2 Immunization ( season) 2024 07/20/2021, 12/26/2020, 12/05/2020 DTaP/Tdap/Td Immunization (5 - Td or Tdap) 11/01/2032 11/01/2022, 06/24/1997, 04/17/1997, Additional history exists Respiratory Syncytial Virus (RSV) Immunization (Adult) (1 - 1-dose 75+ series) 12/12/2071 Hepatitis B Immunization Completed 997, 02/11/1997, 1996 Meningococcal Immunization (ACWY) Completed 04/22/2015 Human Papillomavirus (HPV) Immunization Discontinued 07/04/2019, 02/25/2019, 09/21/2018, Additional history exists Hepatitis C Virus (HCV) Screening Completed 03/29/2022 Influenza Immunization Completed 4, 05/22/2023, 05/18/2022, Additional history exists Pneumococcal Immunization Combined Aged Out No longer eligible based on patient's age to complete this topic Rotavirus Immunization Aged Out No lo nger eligible based on patient's age to complete this topic Goals Goal Patient Goal Type Associated Problems Recent Progress Patient-Stated? Author Behavioral Health Behavioral Health On track( 023 4:31 PM CDT) Yes Agapito Cuenca, PRACTICE OFFICE ASSOCIATE Note: I want to cope better with grief and depression over mom's and other issues Goal/Objective: Decrease grieving. Anticipated Time Frame for Goal Completion: 6 months Goal Reviewed with: patient Readiness to change: Ready to change Department associated with goal: [facility] Steps to achieve goal: [...] aid in managing problematic responses to grief. Procedures Procedure Name Priority Date/Time Associated Diagnosis Comments US PELVIS COMPLETE WITH TRANSVAGINAL Routine 07/01/2024 5:12 PM WANT AD RECEIVER Abnormal uterine bleeding HEPATITIS C ANTIBODY Routine 03/29/2022 1:42 PM CDT Exposure to blood or body fluid from Last 3 Months or Most Recently Relevant to Health Maintenance Results * US PELVIS COMPLETE WITH TRANSVAGINAL (07/01/2024 5:12 PM WANT AD RECEIVER) Anatomical Region Laterality Modality Abdomen N/A Ultrasound 07/06/2024 1:53 AM WANT AD RECEIVER Impressions 07/06/2024 1:56 AM WANT AD RECEIVER IMPRESSION: No acute abnormality. Narrative 07/06/2024 1:56 AM WANT AD RECEIVER EXAM DESCRIPTION: ?? US PELVIS COMPLETE WITH [...] AM T: ??07/06/2024 1:53 AM Report ID: [id number] Reading Location: ??[id number] Procedure Note Rd Jones MD - 07/06/2024 [...] Rd Jones M.D. KT: MURRAY Report ID: [id number] Reading Location: [id number] IMPRESSION: No acute abnormality. us Trini Kim MD [facility] [place] US ORDERABLES Final Result * HEPATITIS C ANTIBODY (03/29/2022 1:42 PM CDT) hepatitis C antibody 0.09 <1 [facility] [id number] B 03/29/2022 9:36 PM CDT [facility] Comment: Signal/Cutoff ratio ??< 0.79 is Nondetected Signal/Cutoff ratio 0.80-0.99 is Grayzone Signal/Cutoff ratio > 0.99 is Detected Supplemental assays are recommended if signal/cutoff ratio is >/=1.00. ??Signal/cutoff ratio result >/= 5.00 is 97% predictive of positivity for recombinant immunoblot assay (RIBA) and will be reported to the [place] Department of Public Health as required. Blood Venipuncture / Unknown 03/29/2022 1:42 PM CDT 03/29/2022 2:37 PM CDT us Bessy Alcaraz HAND MODEL, FURNITURE UPHOLSTERER CHEMISTRY ORDERABLES Final Result [facility] [address] [place] [address], from Last 3 Months or Most Recently Relevant to Health Maintenance Insurance [facility] * Guarantor: [facility] Account Type Relation to Patient Date of Phone Billing Address Institutional Other [address] [place] [address] Care Teams Golf Instructor Relationship Specialty Start Date End Date Bessy Alcaraz APRN, ARAM [address] [address] PCP - General Advanced Practice Nurse 10/30/20 Bessy Alcaraz APRN, ARAM [address] [address] Nurse Practitioner Advanced Practice Nurse 10/28/20 Molly Costello APRN, ARAM [address] [place] [address] Nurse Practitioner Advanced Practice Nurse 10/05/23
--- OUTSIDE RECORDS SUMMARY | 2024-07-28 05:09 | XMS_ITS | Encounter Summary ---
Author Organization [facility] Care Team Providers Care Manager Of It Name Role Phone Bessy Alcaraz APRN, ARAM Unavailable +1- [phone] Bessy Alcaraz APRN, CNP Primary Care Provid er Molly Costello APRN, ARAM Unavailable Encounter Details Date Type Department Care Team (Latest Contact Info) Description 07/01/2024 Travel Social History Tobacco Use Types Packs/Day Years Used Date Smoking Tobacco: Never Smokeless Tobacco: Never Alcohol Use Standard Drinks/Week Comments Yes 0 (1 standard drink = 0.6 oz pur e alcohol) Rarely [facility] Utilities Answer Date Recorded In the past 12 months has e electric, gas, oil, or water company [...] declined 06/03/2024 How often do you attend quaker or quaker serv ices? Patient declined 06/03/2024 Do you belong to any clubs o r organizations such as quaker groups, unions, fraternal or athletic groups, or [...] Total Score - Questions 1-9 0 05/24 [facility] of Occupat ional Health - Occupational Stress [...] place to sleep or slept in a retirement (including now)? No 11/27/2023 Housing Stability Vital Sign Answer Harley e Recorded In the last 12 months, was t here a time when you were not able to pay the mortgage or rent on time? No 06/03/2024 Number of Times Moved in the Last Year Not on fi le 06/03/2024 At any time in the past 12 m onths, were you homeless or living in a retirement (including now)? No 06/03/2024 Education Answer Date [...] on file documented as of this encounter Plan of Treatment Upcoming Encounters Date Type Department Care Team (Late st Contact Info) Description 08/19/2024 8:45 AM GAUNTLET PAIRER Office Visit [facility] [address] [place] [address] Bessy Alcaraz APRN, MATERIAL CLERK [address] [address] documented as of this encounter Goals Goal Patient Goal Type Associated Problems Recent Progress Patient-Stated? Author Behavioral Health Behavioral Health On track( 023 4:31 PM CDT) Yes Agapito Cuenca, GAME SHOW HOST Note: I want to cope better with grief and depression over mom's and other issues Goal/Objective: Decrease grieving. Anticipated Time Frame for Goal Completion: 6 months Goal Reviewed with: patient Readiness to change: Ready to change Department associated with goal: [facility] Steps to achieve [...] to grief. documented as of this encounter Visit Diagnoses Not on filedocumented in this encounter Additional Health Concerns Assessment Noted Time PHQ-9 Depression Total Score: 0 06/04/20 24 7:38 AM GAUNTLET PAIRER documented as of this encounter Care Teams Manager Of It Relationship Specialty Start Date End Date Bessy Alcaraz APRN, ARAM [address] [address] PCP - General Advanced Practice Nurse 10/30/20 Bessy Alcaraz APRN, ARAM [address] [address] Nurse Practitioner Advanced Practice Nurse 10/28/20 Molly Costello APRN, ARAM [address] [place] [address] Nurse Practitioner Advanced Practice Nurse 10/05/23 documented as of this encounter
--- OUTSIDE RECORDS SUMMARY | 2024-07-28 05:09 | XMS_ITS | Encounter Summary ---
Author Organization [facility] Address [address] [place] [address] Phone Care Team Providers Care Concrete Handler Name Role Phone Bessy Alcaraz APRN, ARAM Unavailable + [phone] Bessy Alcaraz APRN, ARAM Primary Care Provid er Molly Costello APRN, PROFESSOR OF ECONOMICS Unavailable Encounter Details Date Type Department Care Team (Late st Contact Info) Description 06/07/2024 Telephone [facility] [place] [address] [place] [address] Tristian Bella MD [address] [address] Social History Tobacco Use Types Packs/Day Years Used Date Smoking Tobacco: Never Smokeless Tobacco: Never Alcohol Use Standard Drinks/Week Comments Yes 0 (1 standard drink = 0.6 oz pur e alcohol) Rarely C Utilities Answer Date Recorded In the past 12 months has [employer] electric, gas, oil, or water company threatened [...] declined 06/03/2024 How often do you attend scientology or shinto serv ices? Patient declined 06/03/2024 Do you belong to any clubs o r organizations such as scientology groups, unions, fraternal or athletic groups, or [...] Total Score - Questions 1-9 0 05/24 [facility] of Occupat ional [facility] - Occupational Stress Questionnaire Answer Date [...] medical appointments or from getting medications? No 11/1 07/2023 In the past 12 months, has l [...] place to sleep or slept in a snf (including now)? No 11/27/2023 Housing Stability Vital [...] were you homeless or living in a snf (including now)? No 06/03/2024 Education Answer Date [...] on file documented as of this encounter Miscellaneous Notes * Telephone Encounter - Tristian Bella MD - 06/07/2024 10:27 AM CST d CONTENT MANAGER documented in this encounter Plan of Treatment Upcoming Encounters Date Type Department Care Team (Late st Contact Info) Description 08/19/2024 8:45 AM WEB CONTENT MANAGER [facility] [place] [address] Bessy Alcaraz APRN, PROFESSOR OF ECONOMICS [address] [phone] documented as of this encounter Goals Goal Patient Goal Type Associated Problems Recent Progress Patient-Stated? Author Behavioral Health Behavioral Health On track( 023 4:31 PM CDT) Yes Agapito Cuenca, LAST CHALKER Note: I want to cope better with grief and depression over mom's and other issues Goal/Objective: Decrease grieving. Anticipated Time Frame for Goal Completion: 6 months Goal Reviewed with: patient Readiness to change: Ready to change Department associated with goal: [facility] Steps to achieve [...] as of this encounter Visit Diagnoses Diagnosis Attention deficit hyperactivity disorder (ADHD), unspecified ADHD type- Primary documented in this encounter Additional Health Concerns Assessment Noted Time PHQ-9 Depression Total Score: 0 06/04/20 24 7:38 AM WEB CONTENT MANAGER documented as of this encounter Care Teams Concrete Handler Relationship Specialty Start Date End Date Bessy Alcaraz APRN, ARAM [address] [address] PCP - General Advanced Practice Nurse 10/30/20 Bessy Alcaraz APRN, ARAM [address] [address] Nurse Practitioner Advanced Practice Nurse 10/28/20 Molly Costello APRN, ARAM [address] [place] [address] Nurse Practitioner Advanced Practice Nurse 10/05/23 documented as of this encounter
--- OUTSIDE RECORDS SUMMARY | 2024-07-28 05:09 | XMS_ITS | Encounter Summary ---
Author Organization [facility] Address [address] [place] [address] Phone Care Team Providers Care Real Estate Internship Name Role Phone Bessy Alcaraz APRN, ARAM Unavailable + [phone] Bessy Alcaraz APRN, ARAM Primary Care Provid er Molly Costello APRN, OPTICS TEST TECHNICIAN Unavailable Encounter Details Date Type Department Care Team (Late st Contact Info) Description 06/17/2024 Telephone [facility] - [place] [address] [place] [address] Tristian Bella MD #[address] [address] Social History Tobacco Use Types Packs/Day Years Used Date Smoking Tobacco: Never Smokeless Tobacco: Never Alcohol Use Standard Drinks/Week Comments Yes 0 (1 standard drink = 0.6 oz pur e alcohol) Rarely C Utilities Answer Date Recorded In the past 12 months has [employer] electric, gas, oil, or water company threatened [...] declined 06/03/2024 How often do you attend restoration or alevism serv ices? Patient declined 06/03/2024 Do you belong to any clubs o r organizations such as restoration groups, unions, fraternal or athletic groups, or [...] Total Score - Questions 1-9 0 05/24 [facility] of Occupat ional [facility] - Occupational Stress Questionnaire Answer Date Recorded [...] place to sleep or slept in a skilled nursing (including now)? No 11/27/2023 Housing Stability Vital [...] were you homeless or living in a skilled nursing (including now)? No 06/03/2024 Education Answer Date [...] Telephone Encounter - Tristian Bella MD - 06/17/2024 10:28 AM CST dc TIONAL ARCHITECT documented in this encounter Plan of Treatment Upcoming Encounters Date Type Department Care Team (Late st Contact Info) Description 08/19/2024 8:45 AM FUNCTIONAL ARCHITECT Office Visit [facility] - [facility] Medicine [place] [address] [place] [address] Bessy Alcaraz APRN, OPTICS TEST TECHNICIAN [address] [phone] documented as of this encounter Goals Goal Patient Goal Type Associated Problems Recent Progress Patient-Stated? Author Behavioral Health Behavioral Health On track( 023 4:31 PM CDT) Yes Agapito Cuenca, FILTER PRESS TENDER Note: I want to cope better with grief and depression over mom's and other issues Goal/Objective: Decrease grieving. Anticipated Time Frame for Goal Completion: 6 months Goal Reviewed with: patient Readiness to change: Ready to change Department associated with goal: [facility] Steps to achieve goal: [...] Total Score: 0 06/04/20 24 7:38 AM FUNCTIONAL ARCHITECT documented as of this encounter Care Teams Real Estate Internship Relationship Specialty Start Date End Date Bessy Alcaraz APRN, ARAM [address] [address] PCP - General Advanced Practice Nurse 10/30/20 Bessy Alcaraz APRN, ARAM [address] [address] Nurse Practitioner Advanced Practice Nurse 10/28/20 Molly Costello APRN, ARAM [address] [place] [address] Nurse Practitioner Advanced Practice Nurse 10/05/23 documented as of this encounter
--- OUTSIDE RECORDS SUMMARY | 2024-07-28 05:09 | XMS_ITS | Encounter Summary ---
Author Organization [facility] Address [address] [place] [address] Phone Care Team Providers Care Ironer Hand Name Role Phone Bessy Alcaraz APRN, ARAM Unavailable + [phone] Bessy Alcaraz APRN, ARAM Primary Care Provid er Molly Costello APRN, DIRECTOR PROCESS Unavailable Encounter Details Date Type Department Care Team (Late st Contact Info) Description 06/11/2024 Telephone [facility] - [place] [address] [place] [address] Tristian Bella MD #[address] [address] Social History Tobacco Use Types Packs/Day Years Used Date Smoking Tobacco: Never Smokeless Tobacco: Never Alcohol Use Standard Drinks/Week Comments Yes 0 (1 standard drink = 0.6 oz pur e alcohol) Rarely C Utilities Answer Date Recorded In the past 12 months has [employer] electric, gas, oil, or water company threatened [...] declined 06/03/2024 How often do you attend oriental orthodox or gnosticist serv ices? Patient declined 06/03/2024 Do you belong to any clubs o r organizations such as oriental orthodox groups, unions, fraternal or athletic groups, or [...] Total Score - Questions 1-9 0 05/24 [facility] of Occupat ional [facility] - Occupational Stress Questionnaire Answer Date [...] place to sleep or slept in a prison (including now)? No 11/27/2023 Housing Stability Vital [...] were you homeless or living in a prison (including now)? No 06/03/2024 Education Answer Date [...] Telephone Encounter - Tristian Bella MD - 06/11/2024 6:39 AM CST d RIBUTOR PUBLICATIONS documented in this encounter Plan of Treatment Upcoming Encounters Date Type Department Care Team (Late st Contact Info) Description 08/19/2024 8:45 AM DISTRIBUTOR PUBLICATIONS [facility] [place] [phone] Bessy Alcaraz APRN, DIRECTOR PROCESS [address] [phone] documented as of this encounter Goals Goal Patient Goal Type Associated Problems Recent Progress Patient-Stated? Author Behavioral Health Behavioral Health On track( 023 4:31 PM CDT) Yes Agapito Cuenca, FLOOR NURSE Note: I want to cope better with grief and depression over mom's and other issues Goal/Objective: Decrease grieving. Anticipated Time Frame for Goal Completion: 6 months Goal Reviewed with: patient Readiness to change: Ready to change [facility] Steps to [...] Total Score: 0 06/04/20 24 7:38 AM DISTRIBUTOR PUBLICATIONS documented as of this encounter Care Teams Ironer Hand Relationship Specialty Start Date End Date Bessy Alcaraz APRN, ARAM [address] [address] PCP - General Advanced Practice Nurse 10/30/20 Bessy Alcaraz APRN, ARAM [address] [address] Nurse Practitioner Advanced Practice Nurse 10/28/20 Molly Costello APRN, ARAM [address] [place] [address] Nurse Practitioner Advanced Practice Nurse 10/05/23 documented as of this encounter
--- OUTSIDE RECORDS SUMMARY | 2024-07-28 05:09 | XMS_ITS | Clinical Summary ---
Author Organization [facility] [employer] [place] Address [address] [place] [address] Care Team Providers Care Ion Exchange Operator Name Role Phone Unavailable Primary Care Provider Unavailabl e Source Comments [facility],non-owned Affiliates and Associated Physician Practices is amultiple site organization consisting of ambulatory clinics and hospital sitesin [place], [place], [place] and [place]. This disclosure is being madepursuant to the Care Everywhere program and may not contain all information available regarding this patient. Last updated 18.[facility] [employer] [place] Allergies No known active allergies Medications Be aware that medications may not be up to date on this document. Always verify current medications with the patient. No known medications Active Problems Problem Noted Date Diagnosed Date Temporomandibular joint (TMJ) pain 08/14/2020 Immunizations Name Administration Dates Next Due INFLUENZA 04/24/2020 Family History Medical History Relation Name Comments Cancer - Other Father None Known Mother Relation Name Status Comments Father Mother Social History Tobacco Use Types Packs/Day Years Used Date Smoking Tobacco: Never Smokeless Tobacco: Never Sex and Gender Information Value Date Recorded Sex Assigned at Not on file Gender Identity Not on file Sexual Orientation Not on file Last Filed Vital Signs Vital Sign Reading Time Taken Comments Blood Pressure 127/78 08/14/2020 3:19 PM PROGRESS MAN Pulse 82 08/14/2020 3:19 PM PROGRESS MAN Temperature 37 ??C (98.6 ??F) 08/14/2020 3:19 PM PROGRESS MAN Respiratory Rate 16 08/14/2020 3:19 PM PROGRESS MAN Oxygen Saturation - - Inhaled Oxygen Concentration - - Weight 87.1 kg (192 lb) 08/14/2020 3:19 PM PROGRESS MAN Height 157.5 cm (5' 2 ) 08/14/2020 3:19 PM PROGRESS MAN Body Mass Index 35.12 08/14/2020 3:19 PM PROGRESS MAN Plan of Treatment Health Maintenance Due Date Last Done Comments PAP SMEAR 1995 HIV SCREENING 12/12/2011 HEPATITIS C SCREENING 12/07/2014 DTAP/TDAP/TD VACCINES (1 - Tdap) 12/12/2015 HEPATITIS B VACCINE (1 of 3 - 19+ 3-dose series) 12/12/2015 DEPRESSION SCREENING 07/24/2023 COVID-19 VACCINE (1 - 2023-2 5 season) 2024 INFLUENZA VACCINE (#1) 2024 0, 05/17/2019 ZOSTER VACCINE (1 of 2) 2046 HIB VACCINE Aged Out No longer eligi ble based on patient's age to complete this topic HPV VACCINE Aged Out No longer eligi ble based on patient's age to complete this topic MENINGOCOCCAL VACCINE Aged Out No cathy fausto eligible based on patient's age to complete this topic PNEUMOCOCCAL VACCINE Aged Out No long er eligible based on patient's age to complete this topic Insurance Payer Benefit Plan / Group Subscriber ID Effective Dates Phone Address Type [facility] CHOICE/SELEC T/CHOICE PLUS/ALL PAYORS [id number] 12/27/2022-Pres ent [address] [address] [place] [address] [facility] [id number] Effective for all dates [address] [place] [address] Medicaid [place] MED[place] - OUT OF STATE [place] [id number] Effective for all dates [address] [address] [place] [address] Medicaid [facility] [place] [facility] [id number] Effective for all dates [address] [place] [address] [place] [facility] [place] [id number] Effective for all dates [address] [place] [address] [place] [facility] [place] [id number] Effective for all dates [address] [place] [address] [place] [facility] [place] [id number] Effective for all dates [address] [place] [address] Medicaid [place] [facility] [id number] Effective for all dates [address] [place] [address] Medicaid [facility] [id number] Effective for all dates [address] [place] [address] Medicaid [facility] [id number] Effective for all dates [address] [place] [address] Medicaid [place] [facility] [id number] Effective for all dates [address] [place] [address] Medicaid [place] [facility] [id number] Effective for all dates [address] [place] [address] Medicaid [facility] [id number] Effective for all dates [address] [place] [address] Medicaid [facility] [id number] Effective for all dates [address] [place] [address] Medicaid [facility] [id number] Effective for all dates [address] [place] [address] Medicaid [place] [facility] [id number] Effective for all dates [address] [place] [address] Medicaid [facility] [id number] Effective for all dates [address] [place] [address] Medicaid [facility] [id number] Effective for all dates [address] [place] [address] Medicaid [facility] [id number] Effective for all dates [address] [place] [address] Medicaid [place] [facility] [id number] Effective for all dates [address] [place] [address] Medicaid [place] [facility] [id number] Effective for all dates [address] [place] [address] Medicaid [place] [facility] [id number] Effective for all dates [address] [place] [address] Medicaid [place] [facility] [id number] Effective for all dates [address] [place] [address] Medicaid [place] [facility] [id number] Effective for all dates [address] [place] [address] Medicaid [place] [facility] [id number] Effective for all dates [address] [place] [address] Medicaid [place] [facility] [id number] Effective for all dates [address] [place] [address] Medicaid [facility] [id number] Effective for all dates [address] [place] [address] Medicaid [facility] [id number] Effective for all dates [address] [place] [address] Medicaid [place] [facility] [id number] Effective for all dates [address] [place] [address] Medicaid [place] [facility] [id number] Effective for all dates [address] [place] [address] Medicaid [facility] [id number] Effective for all dates [address] [place] [address] Medicaid [facility] [id number] Effective for all dates [address] [place] [address] Medicaid [facility] [id number] Effective for all dates [address] [place] [address] Medicaid [facility] [id number] Effective for all dates [address] [place] [address] Medicaid [facility] [id number] Effective for all dates [address] [place] [address] Medicaid [facility] [id number] Effective for all dates [address] [place] [address] Medicaid [place] [facility] [id number] Effective for all dates [address] [place] [address] Medicaid [place] [facility] [id number] Effective for all dates [address] [place] [address] Medicaid [place] [facility] [id number] Effective for all dates [address] [place] [address] Medicaid [place] [facility] [id number] Effective for all dates [address] [place] [address] Medicaid [place] [facility] [id number] Effective for all dates [address] [place] [address] Medicaid [facility] [id number] Effective for all dates [address] [place] [address] Medicaid [place] [facility] [id number] Effective for all dates [address] [place] [address] Medicaid [facility] [id number] Effective for all dates [address] [place] [address] Medicaid [place] [id number] Effective for all dates [address] [address] [place] [address] Medicaid [place] ANASHAYNA L Personal/Family Other [address] [place] [address] ANASHAYNA L Personal/Family Other [address] [place] [address] ANASHAYNA L Personal/Family Other [address] [place] [address] ANASHAYNA L Personal/Family Other [address] [place] [address] ANASHAYNA L Personal/Family Other [address] [place] [address] [place] [address] ANASHAYNA L Personal/Family Other [address] [place] [address] ANASHAYNA L Personal/Family Other [address] [place] [address] ANASHAYNA L Personal/Family Other [address] [place] [address] ANASHAYNA L Personal/Family Other [address] [place] [address] ANASHAYNA L Personal/Family Other [address] [place] [address] ANASHAYNA L Personal/Family Other [address] [place] [address] ANASHAYNA L Personal/Family Other [address] [place] [address] ANASHAYNA L Personal/Family Other [address] [place] [address] ANASHAYNA L Personal/Family Other [address] [place] [address] ANASHAYNA L Personal/Family Other [address] [place] [address] ANASHAYNA L Personal/Family Other [address] [place] [address] ANASHAYNA L Personal/Family Other [address] [place] [address] ANASHAYNA L Personal/Family Other [address] [place] [address] ANASHAYNA L Personal/Family Other [address] [place] [address] ANASHAYNA L Personal/Family Other [address] [place] [address] ANASHAYNA L Personal/Family Other [address] [place] [address] ANASHAYNA L Personal/Family Other [address] [place] [address] ANASHAYNA L Personal/Family Other [address] [place] [address] ANASHAYNA L Personal/Family Other [address] [place] [address] ANASHAYNA L Personal/Family Other [address] [place] [address] ANASHAYNA L Personal/Family Other [address] [place] [address] ANASHAYNA L Personal/Family Other [address] [place] [address] ANASHAYNA L Personal/Family Other [address] [place] [address] ANASHAYNA L Personal/Family Other [address] [place] [address] ANASHAYNA L Personal/Family Other [address] [place] [address] ANASHAYNA L Personal/Family Other [address] [place] [address] ANASHAYNA L Personal/Family Other [address] [place] [address] ANASHAYNA L Personal/Family Other [address] [place] [address] ANASHAYNA L Personal/Family Other [address] [place] [address] ANASHAYNA L Personal/Family Other [address] [place] [address] Cee March Personal/Family Spouse [address] [place] [address] Cee March Personal/Family Self [address] [place] [address] SHAYNA PEREZ Personal/Family Other [address] [place] [address] SHAYNA PEREZ Personal/Family Other [address] [place] [address]
--- OUTSIDE RECORDS SUMMARY | 2024-07-28 05:09 | XMS_ITS | Patient Health Summary ---
Author Organization [facility] Address [address] [place] [address] Care Team Providers Care Technical Marketing Consultant Name Role Phone Unavailable Primary Care Provider Unavailabl e Note from [facility],non-owned Affiliates and Associated Physician Practices is amultiple site organization consisting of ambulatory clinics and hospital sitesin [place], [place], [place] and [place]. This disclosure is being madepursuant to the Care Everywhere program and may not contain all information available regarding this patient. Last updated 18.[facility] Allergies No known active allergies Medications Be aware that medications may not be up to date on this document. Always verify current medications with the patient. No known medications Active Problems Problem Noted Date Diagnosed Date Temporomandibular joint (TMJ) pain 08/14/2020 Immunizations * INFLUENZA(Given 04/24/2020) Social History Tobacco Use Types Packs/Day Years Used Date Smoking Tobacco: Never Smokeless Tobacco: Never Sex and Gender Information Value Date Recorded Sex Assigned at Not on file Gender Identity Not on file Sexual Orientation Not on file Last Filed Vital Signs Vital Sign Reading Time Taken Comments Blood Pressure 127/78 08/14/2020 3:19 PM OTM CONSULTANT Pulse 82 08/14/2020 3:19 PM OTM CONSULTANT Temperature 37 ??C (98.6 ??F) 08/14/2020 3:19 PM OTM CONSULTANT Respiratory Rate 16 08/14/2020 3:19 PM OTM CONSULTANT Oxygen Saturation - - Inhaled Oxygen Concentration - - Weight 87.1 kg (192 lb) 08/14/2020 3:19 PM OTM CONSULTANT Height 157.5 cm (5' 2 ) 08/14/2020 3:19 PM OTM CONSULTANT Body Mass Index 35.12 08/14/2020 3:19 PM OTM CONSULTANT Procedures * SKIN TEST PPD - POINT OF CARE(Performed 12/19/2019) Performed for Encounter for PPD test Results * SKIN TEST PPD - POINT OF CARE (12/19/2019 3:02 PM CDT) PPD 0mm, normal, PPD placed at 1420 on 12/17/19 and read at 1500 on 12/19/19 Other MISCELLANEOUS SAMPLE S / Unknown 12/19/2019 3:02 PM CDT Marci Arias WEEKEND CAREGIVER-ELIGIBILITY COUNSELOR LAB - POINT OF CARE ORDERABLES
--- OUTSIDE RECORDS SUMMARY | 2024-07-28 05:09 | XMS_ITS | Encounter Summary ---
Author Organization [facility] Address [address] [facility] [place] [address] Care Team Providers Care Physician Executive Name Role Phone Unavailable Primary Care Provider Unavailabl e Reason for Visit * Reason Comments PPD Skin Test Placement Encounter Details Date Type Department Care Team ([facility] st Contact Info) Description 12/17/2019 2:20 PM CDT Office Visit [facility] AT [address] [address] Provider, [facility] Encounter for PPD test (Primary Dx) Social History Tobacco Use Types [...] PM CDT documented as of this encounter Patient Instructions * Patient Instructions* Marci Arias APRN-FLOATING LABOR GANG SUPERVISOR - 12/17/2019 2:20 PM CDT Patient Education Tuberculin Skin Test TB test needs to be read after 2:20pm on 12/18 or before 2:20pm on 12/19. Failure to return in this time frame will result in having to repeat test. Clinic hours: M-F: 9:00am-7:30pm [place]: 10:00am-4:30pm Lunch: 1:00pm-2:00pm SORTER/ASSAY TECH: A tuberculin skin test is done to see if you are infected with the bacteria that cause tuberculosis(TB). Tuberculin is a liquid that healthcare providers inject into the skin of your arm. Your skin will react to tuberculin if you are infected. TB is a serious infection that usually starts in the lungs. The bacteria are easily spread from one person to another through the air. They can live in your body a long time without making you sick. This is called latent TB. Latent TB can develop into active TB if it is not treated. Why you need a tuberculin skin test: The most common reason for a tuberculin skin test is for a job, such as a healthcare worker. You may need this test if you have been exposed to someone with TB ortraveled to an area where TB is more common. Call your doctor if: You have questions or concerns about the test or about TB. After the test: ?? Return in 2 to 3 days. Your skin must be checked 2 to 3 days after the test. You will need another TB skin test if you do not come back within 3 days. ?? Watch for signs of allergic reaction. Some people have an allergic reaction to tuberculin. Seek care immediately if you have any symptoms of allergic reaction, such as hives or swelling. What the test results mean: Your test is negative if there is no change to your skin. Your test is positive if the area around the skin test is raised or hard. Talk to your healthcare provider about your test results. The TB skin test can only show that you were infected with the germ that causes tuberculosis. You will need more tests to learn if you have latent or active TB. The most common tests are chest x-rays and sputum samples. ?? Copyright [employer] 2019 Information is for End User's use only and may not be sold, redistributed or otherwise used for commercial purposes. All illustrations and images included in CareNotes?? are the copyrighted property of [employer] or [employer] The above information is an educational speech language clinician only. It is not intended as medical advice for individual conditions or treatments. Talk to your doctor, nurse or pharmacist before following any medical regimen to see if it is safe and effective for you. documented in this encounter Progress Notes * Quiana Overton APRN-CNP - 12/19/2019 3:02 PM CDT Office Visit on 12/17/19 SKIN TEST PPD - POINT OF CARE Result Value Ref Range PPD 0mm, normal, PPD placed at 1420 on 12/17/19 and read at 1500 on 12/19/19 * Marci Arias APRN-CNP - 12/17/2019 2:18 PM CDT PPD Placement note Cee Aldridge, 24 year old female is here today for placement of PPD test Reason for PPD test: school Pt taken PPD test before: yes Verified in allergy area and with patient that they are not allergic to the products PPD is made of(Phenol or Tween). Yes Is patient taking any oral or IV steroid medication now or have they taken it in the last month? no Has the patient ever received the BCG vaccine?: no Has the patient been in recent contact with anyone known or suspected of having active TB disease?:no Date of exposure (if applicable): na Name of person they were exposed to (if applicable): na Patient's Country of origin?: [place] O: Alert and oriented in NAD. P: PPD placed on 12/17/2019. Patient advised to return for reading within 48-72 hours. documented in this encounter Plan of Treatment Not on file documented as of this encounter Procedures Procedure Name Priority Date/Time Associated Diagnosis Comments SKIN TEST PPD - POINT OF CARE Routine 12/19/2019 3:02 PM CDT Encounter for PPD test documented in this encounter Results * SKIN TEST PPD - POINT OF CARE (12/19/2019 3:02 PM CDT) PPD 0mm, normal, PPD placed at 1420 on 12/17/19 and read at 1500 on 12/19/19 Other MISCELLANEOUS SAMPLE S / Unknown 12/19/2019 3:02 PM CDT Marci Arias BOILER COVERER HELPER-FLOATING LABOR GANG SUPERVISOR LAB - POINT OF CARE ORDERABLES documented in this encounter Visit Diagnoses Diagnosis Encounter for PPD test- Primary Screening examination for pulmonary tuberculosis documented in this encounter Administered Medications Administered Medications Medication Order MAR Action Action Date Dose Rate Site PPD Intradermal Given 12/17/2019 0.1 mL Left Forearm documented in this encounter
--- OUTSIDE RECORDS SUMMARY | 2024-07-28 05:09 | XMS_ITS | Encounter Summary ---
Author Organization [facility] Address [address] [place] [address] Care Team Providers Care Restaurant Busser Name Role Phone Unavailable Primary Care Provider Unavailabl e Encounter Details Date Type Department Care Team (Latest Contact Info) Description 12/17/2019 Travel Social History Tobacco Use Types Packs/Day [...] have Coronavirus / COVID-19? No / Unsure 12/17/2019 2:01 PM CDT documented as of this encounter Plan of Treatment Not on file documented as of this encounter Visit Diagnoses Not on filedocumented in this encounter
--- OUTSIDE RECORDS SUMMARY | 2024-07-28 05:10 | XMS_ITS | Encounter Summary ---
Author Organization [facility] Address [address] [place] [address] Phone Care Team Providers Care Resistor Coater Name Role Phone Bessy Alcaraz APRN, CNP Unavailable +- [phone] Bessy Alcaraz APRN, CNP Primary Care Provid er Molly Costello APRN, CNP Unavailable Reason for Referral * Consult, Test & Initiate Treatment (Routine) - Closed Specialty Diagnoses / Procedures Referred By Edmund abrams Referred To Contact Diagnoses Skin lesion Bessy Alcaraz APRN, ARAM [address] [address] Phone: tel: fax: [facility] [place] [address] Phone: tel: fax: Referral ID Status Reason Start Date Expiration Date Visits Re quested Visits Authorized [id number] Closed 11/28/2023 1 1 Scheduling Instructions Cee is being referred to [facility] in [facility], [facility] or other specialist in patient's insurance network for persistant bleeding skin lesions. . See below for Cee's current medications, allergies and problem list. CURRENT MEDS: Current Outpatient Medications: atomoxetine (STRATTERA) 60 MG Capsule, Take 1 Capsule by mouth daily., Disp: 30 Capsule, Rfl: 0 Phentermine HCl 37.5 MG Tablet, Take 1 Tablet by mouth every morning (before breakfast)., Disp: 30 Tablet, Rfl: 0 No current facility-administered medications for this visit. ALLERGIES: No Known Allergies PROBLEM LIST: Patient Active Problem List: MDD (major depressive disorder), recurrent episode, moderate (HCC) Generalized anxiety disorder PTSD (post-traumatic stress disorder) Disordered eating Acute cervicitis Depressive disorder History of iron deficiency anemia Irritable bowel syndrome * Radiology Services (Routine) - Closed Specialty Diagnoses / Procedures Referred By Contac t Referred To Contact Radiology Diagnoses Chronic bilateral low back pain without sciatica Procedures XR SACROILIAC JOINTS, COMPLETE Bessy Alcaraz APRN, CNP #[address] [address] Phone: tel: fax: Referral ID Status Reason Start Date Expiration Date Visits Re quested Visits Authorized [id number] Closed 11/28/2023 1 1 * Radiology Services (Routine) - Closed Specialty Diagnoses / Procedures Referred By Contac t Referred To Contact Radiology Diagnoses Chronic bilateral low back pain without sciatica Procedures XR LUMBAR SPINE MINIMUM 4 VIEWS Bessy Alcaraz APRN, ARAM [address] [address] Phone: tel: fax: Referral ID Status Reason Start Date Expiration Date Visits Re quested Visits Authorized [id number] Closed 11/28/2023 1 1 * Radiology Services (Routine) - Closed Specialty Diagnoses / Procedures Referred By Contac t Referred To Contact Radiology Diagnoses Chronic bilateral low back pain without sciatica Procedures XR THORACIC SPINE, COMPLETE 3 VIEWS Bessy Alcaraz APRN, ARAM [address] [address] Phone: tel: fax: Referral ID Status Reason Start Date Expiration Date Visits Re quested Visits Authorized [id number] Closed 11/28/2023 1 1 * Radiology Services (Routine) - Closed Specialty Diagnoses / Procedures Referred By Edmund t Referred To Contact Radiology Diagnoses Neck pain Procedures XR CERVICAL SPINE MINIMUM 4 VIEWS (4 OR 5V) Bessy Alcaraz APRN, ARAM [address] [address] Phone: tel: fax: Referral ID Status Reason Start Date Expiration Date Visits Re quested Visits Authorized [id number] Closed 11/28/2023 1 1 Reason for Visit * Reason Comments Medication Management Patient is here to day for medication management-- wants to get off of adderall Cough X4 weeks Encounter Details Date Type Department Care Team (Late st Contact Info) Description 11/28/2023 8:45 AM CDT Office Visit [facility] - Family Medicine [facility] [address] [place] [id number] Bessy Alcaraz APRN, ARAM [address] [phone] Attention deficit hyperactivity disorder (ADHD), combined type (Primary Dx); Chronic bilateral low back pain without sciatica; Neck pain; Skin lesion; Acute cough Discharge Disposition: Discharged to home or Selfcare Social History Tobacco Use Types Packs/Day Years Used Date Smoking Tobacco: Never Smokeless Tobacco: Never Tobacco Cessation:Counseling Given: Yes Alcohol Use Standard Drinks/Week Comments Yes 0 (1 standard drink = 0.6 oz pur e alcohol) Rarely [facility] Utilities Answer Date Recorded In the past 12 months has [facility] [place], gas, oil, or water [employer] threatened to shut off services in your home? No 11/27/2023 Social Connection and Isolation Panel [NHANES] A nswer Date Recorded In a typical week, how many times do you talk on the phone with family, friends, or neighbors? Patient declined 11/27/2023 How often do you get togethe r with friends or relatives? Twice a week 11/27/2023 How often do you attend alevism or pentecostalism serv ices? Never 11/27/2023 Do you belong to any clubs o r organizations such as alevism groups, unions, fraternal or athletic groups, or school groups? No 11/27/2023 How often do you attend meet ings of the clubs or organizations you belong to? Never 11/27/2023 Are you , , di vorced, , never , or living with a partner? 11/27/2023 AUDIT-C Answer Date Recorded Q1: How often do you have a drink containing alcohol? Monthly or less 11/27/2023 Q2: How many drinks containi ng alcohol do you have on a typical day when you are drinking? Patient does not drink Q3: How often do you have si x or more drinks on one occasion? Never 11/27/2023 Overall Financial Resource Strain (CARDIA) Answe r Date Recorded How hard is it for you to pa y for the very basics like food, housing, medical care, and heating? Not hard at all 11/27/2023 PHQ-2 Answer Date Recorded Total Score - Questions 1-9 2 /0 11/2023 [facility] - Occupational Stress Questionnaire Answer Date Recorded Do you feel stress - tense, restless, nervous, or anxious, or unable to sleep at night because your mind is troubled all the time - these days? Only a little 11/27/2023 Exercise Vital Sign Answer Date Recorde d On average, how many days pe r week do you engage in moderate to strenuous exercise (like a brisk walk)? 4 days 11/27/2023 On average, how many minutes do you engage in exercise at this level? 60 min 11/27/2023 Hunger Vital Sign Answer Date Recorded Within the past 12 months, y ou worried that your food would run out before you got the money to buy more. Never true 11/27/19 24 Within the past 12 months, t he food you bought just didn't last and you didn't have money to get more. Never true 11/27/2023 PRAPARE - Transportation Answer Date Re corded In the past 12 months, has l ack of transportation kept you from medical appointments or from getting medications? No 12/2023 In the past 12 months, has l ack of transportation kept you from meetings, work, or from getting things needed for daily living? No 11/27/2023 Housing Stability Vital Sign Answer [...] place to sleep or slept in a care home (including now)? No 11/27/2023 Education Answer Date Recorded What is the [...] Sign Reading Time Taken Comments Blood Pressure 110/64 11/28/2023 8:51 AM CDT Pulse 72 11/28/2023 8:51 AM CDT Temperature 36.2 ??C (97.2 ??F) 11/28/2023 8:51 AM CD T Respiratory Rate 14 11/28/2023 8:51 AM CDT Oxygen Saturation 98% 11/28/2023 8:51 AM CDT Inhaled Oxygen Concentration - - Weight 86.3 kg (190 lb 4.8 oz) 11/28/2023 8:51 A M CDT Height 165.1 cm (5' 5 ) 11/28/2023 8:51 AM CDT Body Mass Index 31.67 11/28/2023 8:51 AM CDT documented in this encounter Functional Status * Question Answer Date of Assessment Author Little interest or pleasure in doing things Not at all 11/28/2023 8:52 AM CDSusanne Malhotra CMA Feeling down, depressed, or hopeless Not at all 11/28/2023 8:52 AM CDT Susanne Sebastian CMA * Over the past 2 weeks, how often have you been bothered by any of the following problems? Question Answer Date of Assessment Author Patient Health Questionnaire -2 Score 0 11/28/2023 8:52 AM Susanne Marin CMA documented as of this encounter Progress Notes * Susanne Sebastian CMA - 11/28/2023 8:45 AM CDT Cee March, 27 y.o., female is here for Medication Management (Patient is here today for medication management-- wants to get off of adderall) and Cough (X4 weeks) Medication Refills: Patient reports/denies need for medication refills. Orders Pended: no Requested Prescriptions No prescriptions requested or ordered in this encounter Home Medications Medication Sig Start Date End Date Taking? Authorizing Provider amphetamine-dextroamphetamine (Adderall XR) 30 MG CAPSULE SR 24 HR Take 1 Capsule by mouth every morning. Patient not taking: Reported on 11/28/2023 10/26/23 Bessy Alcaraz APRN, CNP Phentermine HCl 37.5 MG Tablet Take 1 Tablet by mouth every morning (before breakfast). 10/26/23 Yes Bessy Alcaraz APRN, CNP Vyvanse 30 MG Capsule Take 1 Capsule by mouth daily. 06/14/23 Bessy Alcaraz APRN, CNP There are no discontinued medications. I have reviewed the home medication list with the patient and have reconciled discrepancies. The list is accurate to the best of my knowledge. Smoking Status: Social History Tobacco Use Smoking status: Never Smokeless tobacco: Never Vaping Use Vaping Use: Never used Substance Use Topics Alcohol use: Yes Comment: Rarely Drug use: Never Smoking Cessation Counseling Given: yes Health Care Maintenance: Health Maintenance Due Topic Date Due Pap Smear Never done SARS-COV-2 Immunization ( season) 2023 Orders Pended: no The following BPA's have been addressed with the patient today: BMI * Bessy Alcaarz APRN, ARAM - 11/28/2023 8:45 AM CDT [facility] [address] [address] Dept: [phone] Dept Loc: [phone] Loc Patient: Cee March : 1995 Sex: female Subjective Subjective: HPI: Cee March presents for Medication Management (Patient is here today for medication management-- wants to get off of adderall) and Cough (X4 weeks) . Patient presents today for follow up for ADHD, back pain and cough. She has noticed an increased inmood swings and migraines. She also reports that when she isn't taking it she is not motivated. Shewould like to restart at [facility]. She states she has had a cough for four weeks. Occasionally productive. She is noticing it more when she lays down and starts laughing. She did have sore throat, congestion, and ear pain off and on. She is still having spinal pain. She reports that she has numbness and tingling in her arms. She also has pain in her SI joints. She has been seeing a chiropractor without improvement. She did do PT over a year ago. She is asking for x-rays are back. Last ones were taken in 2020 prior to having [facility]. Symptoms severely worsened afterwards. She denies sciatica symptoms. She reports numbnessin her arms start her shoulder and all way down to her hands. She does have a physical job and symptoms are usually exacerbated by working. Past Medical History Positives Diagnosis Date Abdominal pain Anemia Anxiety and depression Gastritis GERD (gastroesophageal reflux disease) Heart murmur 2019 just found, goes to doctor for this 01/08/19 IBS (irritable bowel syndrome) TMJ (temporomandibular joint syndrome) Current Outpatient Medications on File Prior to Visit Medication Sig Dispense Refill Phentermine HCl 37.5 MG Tablet Take 1 Tablet by mouth every morning (before breakfast). 30 Tablet 0 [DISCONTINUED] Vyvanse 30 MG Capsule Take 1 Capsule by mouth daily. 14 Capsule 0 No current facility-administered medications on file prior to visit. No Known Allergies Past Surgical History: Procedure Laterality Date COLONOSCOPY 2016 [place] COLONOSCOPY Left 12/27/2018 Procedure: COLONOSCOPY-HEMORRHOIDS; Surgeon: Scooby Cuellar MD; Location: [facility]; Service: Gastroenterology ORAL SURGERY PROCEDURE Abcess tooth removed and wisdom teeth TONSILLECTOMY Social History Tobacco Use Smoking status: Never Smokeless tobacco: Never Vaping Use Vaping Use: Never used Substance Use Topics Alcohol use: Yes Comment: Rarely Drug use: Never Family History Problem Relation Age of Onset Chronic Obstructive Pulmonary Disease Mother Hepatitis Mother B Drug Abuse Mother Bipolar Disorder Mother Other-comment Father 50 adenocarcinoma head/neck: Mucuosal carcinoma Heart Attack Father High Cholesterol Father Bipolar Disorder Father Lung Cancer Paternal Aunt Stroke Paternal Aunt Lung Cancer Paternal Uncle Stroke Paternal Uncle Lung Cancer Paternal Grandmother Hypothyroidism Maternal Aunt Hypertension Maternal Aunt Anxiety disorder Maternal Aunt Hypothyroidism Maternal Grandmother Depression Brother Anxiety disorder Brother Depression Brother Review of Systems Constitutional: Positive for activity change and fatigue. Negative for appetite change, chills, diaphoresis and fever. HENT: Positive for congestion, ear pain, postnasal drip and rhinorrhea. Negative for dental problem, drooling, ear discharge, facial swelling, mouth sores, nosebleeds, sinus pressure, sinus pain, sneezing, sore throat, tinnitus, trouble swallowing and voice change. Respiratory: Positive for cough. Negative for chest tightness, shortness of breath and wheezing. Cardiovascular: Negative for chest pain and palpitations. Musculoskeletal: Positive for back pain, gait problem, neck pain and neck stiffness. Negative for arthralgias, joint swelling and myalgias. Skin: Negative for rash and wound. Neurological: Negative for dizziness, weakness, numbness and headaches. Psychiatric/Behavioral: Positive for agitation and dysphoric mood. Negative for behavioral problems, confusion, decreased concentration, hallucinations and sleep disturbance. The patient is nervous/anxious. The patient is not hyperactive. Objective Objective: BP 110/64 Pulse 72 Temp 97.2 ??F (36.2 ??C) (Temporal) Resp 14 Ht 5' 5 (1.651 m) Wt 190 lb 4.8 oz (86.3 kg) LMP 09/22/2023 (Exact Date) SpO2 98% BMI 31.67 kg/m?? Physical Exam Vitals and nursing note reviewed. Constitutional: General: She is not in acute distress. Appearance: Normal appearance. She is well-developed. She is not diaphoretic. HENT: Head: Normocephalic and atraumatic. Right Ear: External ear normal. A middle ear effusion is present. Left Ear: External ear normal. A middle ear effusion is present. Nose: Congestion and rhinorrhea present. Rhinorrhea is clear. Eyes: Pupils: Pupils are equal, round, and reactive to light. Neck: Vascular: No carotid bruit. Trachea: No tracheal deviation. Cardiovascular: Rate and Rhythm: Normal rate and regular rhythm. Pulses: Normal pulses. Heart sounds: Normal heart sounds. No murmur heard. No friction rub. No gallop. Pulmonary: Effort: Pulmonary effort is normal. No respiratory distress. Breath sounds: Normal breath sounds. No stridor. No wheezing, rhonchi or rales. Abdominal: General: Bowel sounds are normal. There is no distension. Palpations: Abdomen is soft. Tenderness: There is no abdominal tenderness. There is no guarding or rebound. Musculoskeletal: General: No tenderness. Normal range of motion. Cervical back: Normal and normal range of motion. Thoracic back: Normal. Lumbar back: Normal. Skin: General: Skin is dry. Comments: 1 mm circular lesion to right knee Neurological: Mental Status: She is alert and oriented to person, place, and time. Mental status is at baseline. Psychiatric: Mood and Affect: Mood normal. Behavior: Behavior normal. Thought Content: Thought content normal. Judgment: Judgment normal. Medical Decision Making: Assessment & Plan Diagnoses and all orders for this visit: Attention deficit hyperactivity disorder (ADHD), combined type - atomoxetine (STRATTERA) 60 MG Capsule; Take 1 Capsule by mouth daily. Chronic bilateral low back pain without sciatica - XR THORACIC SPINE, COMPLETE 3 VIEWS; Future - XR LUMBAR SPINE MINIMUM 4 VIEWS; Future - XR SACROILIAC JOINTS, COMPLETE; Future Neck pain - XR CERVICAL SPINE MINIMUM 4 VIEWS (4 OR 5V); Future Skin lesion - EXTERNAL DERMATOLOGY REFERRAL; Future Acute cough Discussed with patient regarding HD. Will start her back to [employer] and worker weight up from there. Patient will communicate via [employer] she has been on several these medications before as we try and figure what will work for her. X- rays ordered for spine. Patient also still has persistent lesion to her right knee. Will send to Dermatology for evaluation. As far as URI likely from allergies recommended Zyrtec or Flonase [id number]. Return in about 3 months (around 02/28/2024). * Bessy Alcaraz APRN, CNP - 11/28/2023 8:45 AM CDT [employer] message sent documented in this encounter Plan of Treatment Upcoming Encounters Date Type Department Care Team (Late st Contact Info) Description 08/19/2024 8:45 AM RANCH HAND Office Visit [facility] Medical [facility] - Family Medicine [facility] [address] [place] [address] Bessy Alcaraz APRN, CNP #[address] [address] Scheduled Referrals Name Type Priority Associated Diagnoses Order Schedule EXTERNAL DERMATOLOGY REFERRAL Outpatient Referral Routine Skin lesion Expected: 11/28/2023, Expires: 11/27/2024 documented as of this encounter Goals Goal Patient Goal Type Associated Problems Recent Progress Patient-Stated? Author Behavioral Health Behavioral Health On track( 023 4:31 PM CDT) Yes Agapito Cuenca, PLATER APPRENTICE Note: I want to cope better with grief and depression over mom's and other issues Goal/Objective: Decrease grieving. Anticipated Time Frame for Goal Completion: 6 months Goal Reviewed with: patient Readiness to change: Ready to change Department associated with goal: [facility] Steps to achieve [...] Procedure Name Priority Date/Time Associated Diagnosis Comments XR THORACIC SPINE, COMPLETE 3 VIEWS Routine 11/29/2023 12:00 AM CDT Chronic bilateral low back pain without sciatica XR SACROILIAC JOINTS, COMPLETE Routine 11/29/2023 12:00 AM CDT Chronic bilateral low back pain without sciatica XR LUMBAR SPINE MINIMUM 4 VIEWS Routine 11/29/2023 12:00 AM CDT Chronic bilateral low back pain without sciatica XR CERVICAL SPINE MINIMUM 4 VIEWS (4 OR 5V) Routine 11/29/2023 12:00 AM CDT Neck pain documented in this encounter Results * XR SACROILIAC JOINTS, COMPLETE (11/29/2023 12:00 AM CDT) Anatomical Region Laterality Modality Spine, Sacroiliac joint N/A Other 11/29/2023 ARAM Ibarra APRN DIAGNOSTIC ORDER TIA Final Result * XR LUMBAR SPINE MINIMUM 4 VIEWS (11/29/2023 12:00 AM CDT) Anatomical Region Laterality Modality Spine, L-spine N/A Other 11/29/2023 Bessy Alcaraz APRN, CNP [place] DIAGNOSTIC ORDER TIA Final Result * XR THORACIC SPINE, COMPLETE 3 VIEWS (11/29/2023 12:00 AM CDT) Anatomical Region Laterality Modality Spine, T-spine N/A Other 11/29/2023 Bessy Alcaraz APRN, MANAGER RESPIRATORY IMG DIAGNOSTIC ORDER TIA Final Result * XR CERVICAL SPINE MINIMUM 4 VIEWS (4 OR 5V) (11/29/2023 12:00 AM CDT) Anatomical Region Laterality Modality Spine, C-spine N/A Other 11/29/2023 Result [facility] Bessy Alcaraz APRN, CNP [place] DIAGNOSTIC ORDER TIA Final Result documented in this encounter Visit Diagnoses Diagnosis Attention deficit hyperactivity disorder (ADHD), combined type- Primary Chronic bilateral low back pain without sciatica Neck pain Cervicalgia Skin lesion Unspecified disorder of skin and subcutaneous tissue Acute cough documented in this encounter Additional Health Concerns Assessment Noted Time PHQ-9 Depression Total Score: 2 09/26/19 24 1:32 PM RANCH HAND documented as of this encounter Care Teams Resistor Coater Relationship Specialty Start Date End Date Bessy Alcaraz APRN, CNP #[address] [phone] PCP - General Advanced Practice Nurse 10/30/20 Bessy Alcaraz APRN, CNP #[address] [address] Nurse Practitioner Advanced Practice Nurse 10/28/20 Molly Costello APRN, CNP [address] [place] [address] Nurse Practitioner Advanced Practice Nurse 10/05/23 documented as of this encounter
--- OUTSIDE RECORDS SUMMARY | 2024-07-28 05:10 | XMS_ITS | Encounter Summary ---
Author Organization [facility] [employer] Care Team Providers Care Pilates Coordinator Name Role Phone Bessy Alcaraz APRN, CNP Unavailable +- [phone] Bessy Alcaraz APRN, CNP Primary Care Provid er Encounter Details Date Type Department Care Team (Latest Contact Info) Description 11/11/2022 Travel Social History Tobacco Use Types Packs/Day Years Used Date Smoking Tobacco: Never Smokeless Tobacco: Never Alcohol Use Standard Drinks/Week Comments Yes 0 (1 standard drink = 0.6 oz pur e alcohol) Rarely PHQ-2 Answer Date Recorded Total Score - Questions 1-9 3 09/2022 Education Answer Date Recorded What is the highest level of school you have completed or the highest degree you have received? Associate degree: academic program 01/18/2021 Sexually Active [employer] Comments Yes [employer]. Male Comments Yes Sex and Gender Information Value Date Recorded Sex Assigned at Not on file Legal Sex Female 3:47 PM CDT Gender Identity Not on file Sexual Orientation Not on file COVID-19 Exposure Response Date Recorded In the last 10 days, have yo u been in contact with someone who was confirmed or suspected to have Coronavirus/COVID-19? No / Unsure 11/11/2022 8:38 AM CDT documented as of this encounter Plan of Treatment Upcoming Encounters Date Type Department Care Team (Late st Contact Info) Description 08/19/2024 8:45 AM GOLF COURSE SUPERINTENDENT Office Visit [facility] - Family [facility] [address] [place] [address] Bessy Alcaraz APRN, CNP [address] [facility] [place] [address] documented as of this encounter Goals Goal Patient Goal Type Associated Problems Recent Progress Patient-Stated? Author Behavioral Health Behavioral Health On track( 023 4:31 PM CDT) Yes Agapito Cuenca, STEM PROCESSING MACHINE OPERATOR Note: I want to cope better with grief and depression over mom's and other issues Goal/Objective: Decrease grieving. Anticipated Time Frame for Goal Completion: 6 months Goal Reviewed with: patient Readiness to change: Ready to change Department associated with goal: [facility] Steps to achieve [...] Assessment Noted Time PHQ-9 Depression Total Score: 3 09/24/19 23 10:00 AM GOLF COURSE SUPERINTENDENT documented as of this encounter Care Teams Pilates Coordinator Relationship Specialty Start Date End Date Bessy Alcaraz APRN, ARAM [address] [address] PCP - General Advanced Practice Nurse 10/30/20 Bessy Alcaraz APRN, ARAM [address] [address] Nurse Practitioner Advanced Practice Nurse 10/28/20 documented as of this encounter
--- OUTSIDE RECORDS SUMMARY | 2024-07-28 05:10 | XMS_ITS | Encounter Summary ---
Author Organization [facility] Care Team Providers Care Fabric Worker Fitter Name Role Phone Bessy Alcaraz APRN, ARAM Unavailable +1- [phone] Bessy Alcaraz APRN, CNP Primary Care Provid er Molly Costello APRN, ARAM Unavailable Encounter Details Date Type Department Care Team (Latest Contact Info) Description 11/27/2023 Travel Social History Tobacco Use Types Packs/Day Years Used Date Smoking Tobacco: Never Smokeless Tobacco: Never Alcohol Use Standard Drinks/Week Comments Yes 0 (1 standard drink = 0.6 oz pur e alcohol) Rarely [facility] Utilities Answer Date Recorded In the past 12 months has [employer] electric, gas, oil, or water company threatened [...] week 11/27/2023 How often do you attend confucianist or restorationist serv ices? Never 11/27/2023 Do you belong to any clubs o r organizations such as confucianist groups, unions, fraternal or athletic groups, or [...] Recorded Total Score - Questions 1-9 2 11/2023 [facility] of Occupat ional Health - Occupational [...] place to sleep or slept in a correction (including now)? No 11/27/2023 Education Answer Date [...] on file documented as of this encounter Functional Status * Audit-C Score Answer Date of Assessment Author 1 11/27/2023 2:01 PM CDT Keith, System Background * Within the last year, have you been humiliated or emotionally abused in other ways by your partner or ex-partner? Answer Date of Assessment Author No 11/27/2023 2:01 PM CDT Leet, System Background * Within the last year, have you been afraid of your partner or ex-partner? Answer Date of Assessment Author No 11/27/2023 2:01 PM CDT Leet, System Background * Within the last year, have you been raped or forced to have any kind of sexual activity by your partner or ex-partner? Answer Date of Assessment Author No 11/27/2023 2:01 PM CDT Leet, System Background * Within the last year, have you been kicked, hit, slapped, or otherwise physically hurt by your partner or ex-partner? Answer Date of Assessment Author No 11/27/2023 2:01 PM CDT Leet, System Background * Q1: How often do you have a drink containing alcohol? Answer Date of Assessment Author Monthly or less 11/27/2023 2:01 PM CDT Leet, System Background * Q2: How many drinks containing alcohol do you have on a typical day when you are drinking? Answer Date of Assessment Author Patient does not drink 11/27/2023 2:01 PM CDT Lilia chart, System Background * Q3: How often do you have six or more drinks on one occasion? Answer Date of Assessment Author Never 11/27/2023 2:01 PM CDT Leet, System Background documented as of this encounter Plan of Treatment Upcoming Encounters Date Type Department Care Team (Late st Contact Info) Description 08/19/2024 8:45 AM PLATINUMSMITH Office Visit [facility] - [facility] Medicine - [place] [address] [place] [address] Bessy Alcaraz APRN, ARAM #2 [facility] [address] [place] [address] documented as of this encounter Goals Goal Patient Goal Type Associated Problems Recent Progress Patient-Stated? Author Behavioral Health Behavioral Health On track( 023 4:31 PM CDT) Yes Agapito Cuenca, HIGH PRESSURE CLEANER Note: I want to cope better with grief and depression over mom's and other issues Goal/Objective: Decrease grieving. Anticipated Time Frame for Goal Completion: 6 months Goal Reviewed with: patient Readiness to change: Ready to change Department associated with goal: [facility] Steps to achieve goal: [...] Total Score: 2 09/26/19 24 1:32 PM PLATINUMSMITH documented as of this encounter Care Teams Fabric Worker Fitter Relationship Specialty Start Date End Date Bessy Alcaraz APRN, ARAM [address] [address] PCP - General Advanced Practice Nurse 10/30/20 Bessy Alcaraz APRN, ARAM #[address] [address] Nurse Practitioner Advanced Practice Nurse 10/28/20 Molly Costello APRN, FIELDWORK COORDINATOR [address] [place] [address] Nurse Practitioner Advanced Practice Nurse 10/05/23 documented as of this encounter
--- OUTSIDE RECORDS SUMMARY | 2024-07-28 05:10 | XMS_ITS | Encounter Summary ---
Author Organization [employer] Care Team Providers Care Residential Carpet Installer Name Role Phone Bessy Alcaraz APRN, ARAM Unavailable [phone]- [phone] Bessy Alcaraz APRN, CNP Primary Care Provid er Molly Costello APRN, ARAM Unavailable Encounter Details Date Type Department Care Team (Latest Contact Info) Description 10/05/2023 Travel Social History Tobacco Use Types Packs/Day Years Used Date Smoking Tobacco: Never Smokeless Tobacco: Never Alcohol Use Standard Drinks/Week Comments Yes 0 (1 standard drink = 0.6 oz pur e alcohol) Rarely [facility] Utilities Answer Date Recorded In the past 12 months has e electric, gas, oil, or water company threatened to shut off services in your home? Patient declined 08/29/2023 Social Connection and Isolation Panel [NHANES] A nswer Date Recorded In a typical week, how many times do you talk on the phone with family, friends, or neighbors? Twice a week 08/29/2023 How often do you get together with friends or re latives? Once a week 08/29/2023 Attends [employer] Services Not on file 08/29 Active Member of Clubs or Organizations Not on f ile 08/29/2023 Attends Club or Organization Meetings Not on consuelo e 08/29/2023 Marital Status Not on file 08/29/2023 AUDIT-C Answer Date Recorded Q1: How often do you have a drink containing alcohol? Monthly or less 08/29/2023 Q2: How many drinks containi ng alcohol do you have on a typical day when you are drinking? Patient does not drink Frequency of Binge Drinking Not on file 12/2023 Overall Financial Resource Strain (CARDIA) Answe r Date Recorded How hard is it for you to pa y for the very basics like food, housing, medical care, and heating? Not very hard 08/29/2023 PHQ-2 Answer Date Recorded Total Score - Questions 1-9 2 11/2023 [facility] of Occupat ional Health - Occupational Stress Questionnaire Answer Date Recorded Do you feel stress - tense, restless, nervous, or anxious, or unable to sleep at night because your mind is troubled all the time - these days? To some extent 08/29/2023 Exercise Vital Sign Answer Date Recorde d On average, how many days pe r week do you engage in moderate to strenuous exercise (like a brisk walk)? 3 days Minutes of Exercise per Session Not on file 08/29/2023 Hunger Vital Sign Answer Date Recorded Within the past 12 months, y ou worried that your food would run out before you got the money to buy more. Never true 08/29/19 24 Within the past 12 months, t he food you bought just didn't last and you didn't have money to get more. Never true 08/29/2023 PRAPARE - Transportation Answer Date Re corded In the past 12 months, has l ack of transportation kept you from medical appointments or from getting medications? No 12/2023 In the past 12 months, has l ack of transportation kept you from meetings, work, or from getting things needed for daily living? No 08/29/2023 Housing Stability Vital Sign Answer Harley e Recorded In the last 12 months, was t here a time when you were not able to pay the mortgage or rent on time? No 08/29/2023 Number of Places Lived in the Last Year Not on f ile 08/29/2023 Unstable Housing in the Last Year Not on file 08/29/2023 Education Answer Date Recorded What is the [...] st Contact Info) Description 08/19/2024 8:45 AM DAIRY GRAZER Office Visit [facility] - Family Medicine [facility] [address] [place] [address] Bessy Alcaraz APRN, STRIKE OFF MACHINE OPERATOR [address]2 [place] [address] documented as of this encounter Goals Goal Patient Goal Type Associated Problems Recent Progress Patient-Stated? Author Behavioral Health Behavioral Health On track( 023 4:31 PM CDT) Yes Agapito Cuenca, SENIOR FIRMWARE ENGINEER Note: I want to cope better with grief and depression over mom's and other issues Goal/Objective: Decrease grieving. Anticipated Time Frame for Goal Completion: 6 months Goal Reviewed with: patient Readiness to change: Ready to change Department associated with goal: [facility] Steps to [...] filedocumented in this encounter Additional Health Concerns Infection Onset Date Last Indicated Resolved Time C. difficile Rule-Out 10/05/2023 10/05/20232023 12:19 AM CDT Assessment Noted Time PHQ-9 Depression Total Score: 2 09/26/19 24 1:32 PM DAIRY GRAZER documented as of this encounter Care Teams Residential Carpet Installer Relationship Specialty Start Date End Date Bessy Alcaraz APRN, STRIKE OFF MACHINE OPERATOR [address] [place] [address] PCP - General Advanced Practice Nurse 10/30/20 Bessy Alcaraz APRN, STRIKE OFF MACHINE OPERATOR #[address] [address] Nurse Practitioner Advanced Practice Nurse 10/28/20 Molly Costello APRN, STRIKE OFF MACHINE OPERATOR [address] [place] [address] Nurse Practitioner Advanced Practice Nurse 10/05/23 documented as of this encounter
--- OUTSIDE RECORDS SUMMARY | 2024-07-28 05:10 | XMS_ITS | Encounter Summary ---
Author Organization [facility] Address [address] [place] [address] Phone Care Team Providers Care Sales Agent Pest Control Service Name Role Phone Bessy Alcaraz APRN, ARAM Unavailable +- [phone] Bessy Alcaraz APRN, INFRASTRUCTURE ANALYST Primary Care Provid er Molly Costello APRN, INFRASTRUCTURE ANALYST Unavailable Reason for Visit * Reason Comments Medication Management Hypertension Encounter Details Date Type Department Care Team (Late st Contact Info) Description 06/04/2024 7:30 AM WELDER FITTER GAS Office Visit [facility] - Family [facility] [address] [place] [address] Tristian Bella MD #[address] [address] Attention deficit hyperactivity disorder (ADHD), unspecified ADHD [...] Recorded In the past 12 months has [employer] electric, gas, oil, or water company threatened [...] declined 06/03/2024 How often do you attend yarsani or zoroastrianism serv ices? Patient declined 06/03/2024 Do you belong to any clubs o r organizations such as yarsani groups, unions, fraternal or athletic groups, or [...] [facility] of Occupat ional Health - Occupational Stress [...] place to sleep or slept in a mcc (including now)? No 11/27/2023 Housing Stability Vital Sign Answer Harley e Recorded In the last 12 months, was t here a time when you were not able to pay the mortgage or rent on time? No 06/03/2024 Number of Times Moved in the Last Year Not on fi le 06/03/2024 At any time in the past 12 m [facility], were you homeless or living in a mcc (including now)? No 06/03/2024 Education Answer Date [...] Comments Blood Pressure 118/74 06/04/2024 7:31 AM WELDER FITTER GAS Pulse 92 06/04/2024 7:31 AM WELDER FITTER GAS Temperature 36.1 ??C (96.9 ??F) 06/04/2024 7:31 AM CS T Respiratory Rate 16 06/04/2024 7:31 AM WELDER FITTER GAS Oxygen Saturation 97% 06/04/2024 7:31 AM WELDER FITTER GAS Inhaled Oxygen Concentration - - Weight 82.6 kg (182 lb) 06/04/2024 7:31 AM WELDER FITTER GAS Height 165.1 cm (5' 5 ) 06/04/2024 7:31 AM WELDER FITTER GAS Body Mass Index 30.29 06/04/2024 7:31 AM WELDER FITTER GAS documented in this encounter Functional Status * Question Answer Date of Assessment Author Little interest or pleasure in doing things Not at all 06/04/2024 7:38 AM WELDER FITTER GAS Cynthia Chun RMA Feeling down, depressed, or hopeless Not at all 06/04/2024 7:38 AM WELDER FITTER GAS Cynthia Chun RMA * Over the past 2 weeks, how often have you been bothered by any of the following problems? Question Answer Date of Assessment Author Patient Health Questionnaire -2 Score 0 06/04/2024 7:38 AM WELDER FITTER GAS Cynthia Chun RMA documented as of this encounter Progress Notes * Cynthia Chun RMA - 06/04/2024 7:30 AM CST Cee March, 28 y.o., female is here for Medication Management and Hypertension Medication Refills: Patient reports/denies need for medication refills. Orders Pended: no Requested Prescriptions No prescriptions requested or ordered in this encounter Home Medications Medication Sig Start Date End Date Taking? Authorizing Provider amphetamine-dextroamphetamine (Adderall XR) 20 MG CAPSULE SR 24 HR Take 1 Capsule by mouth every morning. 05/10/24 Yes Manuel Quintero APRN, CNP Amphetamine-Dextroamphetamine (Adderall XR) 25 MG CAPSULE SR 24 HR Take 1 Capsule by mouth every morning. 05/14/24 Yes Manuel Quintero APRN, CNP buPROPion (WELLBUTRIN) 150 MG XL tablet Take 1 Tablet by mouth every morning. 03/05/24 Yes Bessy Alcaraz APRN, CNP Vyvanse 30 [...] Never Smokeless tobacco: Never Vaping Use Vaping status: Never Used Substance Use Topics Alcohol use: Yes Comment: Rarely Drug use: Never Smoking Cessation Counseling Given: no Health Care Maintenance: Health Maintenance Due Topic Date Due Pap Smear Never done Influenza Immunization (1) 03/24/2024 SARS-COV-2 Immunization ( season) 2024 Orders Pended: no The following BPA's have been addressed with the patient today: Flu and Depression ER FITTER GAS * Tristian Bella MD - 06/04/2024 7:30 AM CST SUBJECTIVE: Cee March is here to follow-up/ evaluation on her 1. Attention deficit hyperactivity disorder (ADHD), unspecified ADHD type 2. Attention deficit hyperactivity disorder (ADHD), combined type Past Medical History Positives Diagnosis Date Abdominal pain Anemia Anxiety and depression Gastritis GERD (gastroesophageal reflux disease) Heart murmur 2019 just found, goes to doctor for this 01/08/19 IBS (irritable bowel syndrome) TMJ (temporomandibular joint syndrome) Past Surgical History: Procedure Laterality Date COLONOSCOPY 2017 [place] COLONOSCOPY Left 12/27/2018 Procedure: COLONOSCOPY-HEMORRHOIDS; Surgeon: Scooby Cuellar MD; Location: [facility]; Service: Gastroenterology ORAL SURGERY PROCEDURE Abcess tooth removed and wisdom teeth TONSILLECTOMY Social History Tobacco Use Smoking status: Never Smokeless tobacco: Never Substance Use Topics Alcohol use: Yes Comment: Rarely Exercise: no ROS: She denies chest pain, dyspnea, claudication, visual symptoms. She denies symptoms of transient ischemic attacks. No lightheadedness, palpitations, or syncope. No edema. She is compliant in taking her medication and denies medication side effects. Went to finger cobbler Bp was high Told to stop strattera. Bp has been fine now Takes adderall prn Wants to take daily medicine. Good energy but poor focus On wellbutrin to help with moods Adhd Concerta tried Adderall tried Stratterra Vyvanse tried Outpatient Medications Marked as Taking for the 06/04/24 encounter (Office Visit) with Tristian Bella MD Medication Sig Dispense Refill buPROPion (WELLBUTRIN) 150 MG XL tablet Take 1 Tablet by mouth every morning. 90 Tablet 1 Vyvanse 30 MG Capsule Take 1 Capsule by mouth daily. 30 Capsule 0 Allergies Allergen Reactions Etonogestrel-Ethinyl Estradiol Swelling Latex Other (see Comments) LABS Lab Results Component Value Date WBC 6.66 08/29/2023 HEMOGLOBIN 13.5 08/29/2023 PLATELETCNT 338 08/29/2023 CHOLESTEROL 159 08/29/2023 TRIGLYCRIDES 90 08/29/2023 HDLCHOLESTE 63 08/29/2023 LDL 78 08/29/2023 HGBA1C 5.4 08/29/2023 [id number] 08/29/2023 Lab Results Component Value Date SODIUM 139 08/29/2023 POTASSIUM 3.9 08/29/2023 CHLORIDE 110 (H) 08/29/2023 CO2VEN 21 (L) 08/29/2023 ANIONGAP 11.9 08/29/2023 GLUCOSE 84 08/29/2023 BUN 8 08/29/2023 CREATININE 0.66 08/29/2023 BCRATIO8 12 08/29/2023 TOTALPROTEIN 7.6 08/29/2023 ALBUMIN 4.3 08/29/2023 CALCIUM 8.9 08/29/2023 TBIL 0.2 08/29/2023 SGOTAST 12 08/29/2023 SGPTALT 15 08/29/2023 ALKALINEPHO 105 08/29/2023 GFRNA >60 08/29/2023 GFRA >60 08/29/2023 VTMD 19 08/29/2023 TSH 1.486 08/29/2023 FREET3 2.7 01/18/2022 T4FREE 1.1 01/18/2022 OBJECTIVE Well-nourished, well-developed, pleasant, cooperative 28 y.o. female in no acute distress. Vitals: 06/04/24 0731 BP: 118/74 Pulse: 92 Resp: 16 Temp: 96.9 ??F (36.1 ??C) TempSrc: Temporal SpO2: 97% Weight: 182 lb (82.6 kg) Height: 5' 5 (1.651 m) Body mass index is 30.29 kg/m??. BP Readings from Last 3 Encounters: 06/04/24 118/74 03/05/24 112/80 11/28/23 110/64 Wt Readings from Last 3 Encounters: 06/04/24 182 lb (82.6 kg) 03/05/24 184 lb (83.5 kg) 11/28/23 190 lb 4.8 oz (86.3 kg) SKIN: Warm and dry. EYES: Sclerae are clear. NECK: Supple. No thyromegaly or adenopathy, no bruits.LUNGS: Clear to auscultation and percussion. HEART:normal rate, regular rhythm, normal S1, S2, no murmurs, rubs, clicks or gallops. ABDOMEN: Bowel sounds are active. No masses. No organomegaly, no tenderness. No bruits. EXTREMITIES: No edema. ASSESSMENT AND PLAN Diagnoses and all orders for this visit: Attention deficit hyperactivity disorder (ADHD), unspecified ADHD type Attention deficit hyperactivity disorder (ADHD), combined type - Vyvanse 30 MG Capsule; Take 1 Capsule by mouth daily. Medications Discontinued During This Encounter Medication Reason amphetamine-dextroamphetamine (Adderall XR) 20 MG CAPSULE SR 24 HR Error Amphetamine-Dextroamphetamine (Adderall XR) 25 MG CAPSULE SR 24 HR Error Vyvanse 30 MG Capsule Reorder No follow-ups on file. After visit summary discussed with patient. Documentation for this visit on 06/04/2024 was completed using a template. I have seen and examinedthe patient. Everything documented was personally performed at this visit with the necessary additions, deletions and changes made as appropriate. Adhd; will do vyvanse 30 daily. Stay on wellbutrin for now Bp fine today wont change wellbutrin for now call one week to update us Urged daily vitamins. Not using control Urged covid shot S/p inf shot Ov ER FITTER GAS documented in this encounter Plan of Treatment Upcoming Encounters Date Type Department Care Team (Late st Contact Info) Description 08/19/2024 8:45 AM WELDER FITTER GAS [facility] Medicine [facility] [address] [place] [phone] Bessy Alcaraz APRN, INFRASTRUCTURE ANALYST #[address] [phone] documented as of this encounter Goals Goal Patient Goal Type Associated Problems Recent Progress Patient-Stated? Author Behavioral Health Behavioral Health On track( 023 4:31 PM CDT) Yes Agapito Cuenca LCSW Note: I want to cope better with grief and depression over mom's and other issues Goal/Objective: Decrease grieving. Anticipated Time Frame for Goal Completion: 6 months Goal Reviewed with: patient Readiness to change: Ready to change Department associated with goal: [facility] Steps to achieve goal: [...] hyperactivity disorder (ADHD), unspecified ADHD type- Primary Attention deficit hyperactivity disorder (ADHD), combined type documented in this encounter Additional Health Concerns Assessment Noted Time PHQ-9 Depression Total Score: 0 06/04/20 24 7:38 AM WELDER FITTER GAS documented as of this encounter Care Teams Sales Agent Pest Control Service Relationship Specialty Start Date End Date Bessy Alcaraz APRN, ARAM #[address] [address] PCP - General Advanced Practice Nurse 10/30/20 Bessy Alcaraz APRN, ARAM #[address] [address] Nurse Practitioner Advanced Practice Nurse 10/28/20 Molly Costello APRN, ARAM [address] [place] [address] Nurse Practitioner Advanced Practice Nurse 10/05/23 documented as of this encounter
--- OUTSIDE RECORDS SUMMARY | 2024-07-28 05:10 | XMS_ITS | Encounter Summary ---
Author Organization [facility] Address [address] [place] [address] Phone Care Team Providers Care Instructor Physical Education Name Role Phone Bessy Alcaraz APRN, CNP Unavailable +- [phone] Bessy Alcaraz APRN, CNP Primary Care Provid er Reason for Visit * Reason Onset Date Comments Appointment 05/05/2022 Encounter Details Date Type Department Care Team (Late st Contact Info) Description 05/05/2022 Telephone [facility] [address], [address] [place] [address] Mina Hernandez, [facility] Appointment Social History Tobacco Use Types Packs/Day Years Used Date Smoking Tobacco: Never Smokeless Tobacco: Never Alcohol Use Standard Drinks/Week Comments Yes 0 (1 standard drink = 0.6 oz pur e alcohol) Rarely PHQ-2 Answer Date Recorded Total Score - Questions 1-9 11 04/0 11/2021 Education Answer Date Recorded What is the [...] suspected to have Coronavirus/COVID-19? No / Unsure 05/03/2022 10:47 AM CDT documented as of this encounter Miscellaneous Notes * Telephone Encounter - Mina Hernandez PTA - 05/05/2022 7:16 AM CDT ----- Message from Robert Christensen sent at 05/05/2022 7:07 AM CDT ----- Regarding: cxd Same day cxd# i still cant straighten my arm documented in this encounter Plan of Treatment Upcoming Encounters Date Type Department Care Team (Late st Contact Info) Description 08/19/2024 8:45 AM FAST FOOD MANAGER Office Visit [facility] - Family Medicine - [place] [address] [place] [address] Bessy Alcaraz APRN, HAIRPIECE STYLIST [address] [address] documented as of this encounter Visit Diagnoses Not on filedocumented in this encounter Additional Health Concerns Assessment Noted Time PHQ-9 Depression Total Score: 11 10/26/ 022 4:00 PM CDT documented as of this encounter Care Teams Instructor Physical Education Relationship Specialty Start Date End Date Bessy Alcaraz APRN, CNP #[address] [address] PCP - General Advanced Practice Nurse 10/30/20 Bessy Alcaraz APRN, CNP #[address] [address] Nurse Practitioner Advanced Practice Nurse 10/28/20 documented as of this encounter
--- OUTSIDE RECORDS SUMMARY | 2024-07-28 05:10 | XMS_ITS | Encounter Summary ---
Author Organization [facility] [employer] Care Team Providers Care Salvation [employer] Officer Name Role Phone Bessy Alcaraz APRN, CNP Unavailable +- [phone] Bessy Alcaraz APRN, CNP Primary Care Provid er Encounter Details Date Type Department Care Team (Latest Contact Info) Description 04/26/2022 Travel Social History Tobacco Use Types Packs/Day Years Used Date Smoking Tobacco: Never Smokeless Tobacco: Never Alcohol Use Standard Drinks/Week Comments Yes 0 (1 standard drink = 0.6 oz pur e alcohol) Rarely PHQ-2 Answer Date Recorded Total Score - Questions 1-9 11 11/2021 Education Answer Date Recorded What is [...] suspected to have Coronavirus/COVID-19? No / Unsure 04/26/2022 11:19 AM CDT documented as of this encounter Plan of Treatment Upcoming Encounters Date Type Department Care Team (Late st Contact Info) Description 08/19/2024 8:45 AM PC TECHNICIAN Office Visit [facility] - Family [facility] [address] [place] [address] Bessy Alcaraz APRN, CNP [address] [address] documented as of this encounter Visit Diagnoses Not on filedocumented in this encounter Additional Health Concerns Assessment Noted Time PHQ-9 Depression Total Score: 11 10/26/ 022 4:00 PM CDT documented as of this encounter Care Teams Sal[employer] Officer Relationship Specialty Start Date End Date Bessy Alcaraz APRN, ARAM #[address] [address] PCP - General Advanced Practice Nurse 10/30/20 Bessy Alcaraz APRN, ARAM #[address] [address] Nurse Practitioner Advanced Practice Nurse 10/28/20 documented as of this encounter
--- OUTSIDE RECORDS SUMMARY | 2024-07-28 05:10 | XMS_ITS | Encounter Summary ---
Author Organization [facility] Address [address] [place] [address] Phone Care Team Providers Care Combat Systems Operator Name Role Phone Omar Maxwell APRN, CNP Unavailable +- [phone] Omar Maxwell APRN, CNP Primary Care Provid er Encounter Details Date Type Department Care Team (Late st Contact Info) Description 08/29/2023 9:50 AM OUTPATIENT CODER Lab [facility] [address] [place] [phone] [facility]/Ancillary BMI 38.0-38.9,adult; Irregular menses Discharge Disposition: Discharged to home or Selfcare Social History Tobacco Use Types Packs/Day Years Used Date Smoking Tobacco: Never Smokeless Tobacco: Never Alcohol Use Standard Drinks/Week Comments Yes 0 (1 standard drink = 0.6 oz pur e alcohol) Rarely [facility] Utilities Answer Date Recorded In the past 12 months has e [employer], gas, oil, or water [employer] threatened to shut off services in your home? Patient declined 08/29/2023 Social Connection and Isolation Panel [NHANES] A nswer Date Recorded In a typical week, how many times do you talk on the phone with family, friends, or neighbors? Twice a week 08/29/2023 How often do you get together with friends or re latives? Once a week 08/29/2023 Attends [employer] Services Not on file 08/29 Active Member [...] Total Score - Questions 1-9 3 09/2022 [facility] [...] as of this encounter Functional Status * Within the last year, have you been humiliated or emotionally abused in other ways by your partner or ex-partner? Answer Date of Assessment Author No 08/29/2023 8:47 AM OUTPATIENT CODER [facility] * Within the last year, have you been afraid of your partner or ex-partner? Answer Date of Assessment Author No 08/29/2023 8:47 AM OUTPATIENT CODER [facility] * Q1: How often do you have a drink containing alcohol? Answer Date of Assessment Author Monthly or less 08/29/2023 8:47 AM OUTPATIENT CODER [facility] * Q2: How many drinks containing alcohol do you have on a typical day when you are drinking? Answer Date of Assessment Author Patient does not drink 08/29/2023 8:47 AM OUTPATIENT CODER [facility] documented as of this encounter Progress Notes * Melonie Ariza - 08/29/2023 9:50 AM CST Cee presents for lab draw per order of omar maxwell dated [id number]. Specimen collected from left antecubital without incident. [facility] ATIENT CODER documented in this encounter Plan of Treatment Upcoming Encounters Date Type Department Care Team (Late st Contact Info) Description 08/19/2024 8:45 AM OUTPATIENT CODER [facility] - [place] [address] [place] [phone] Omar Maxwell APRN, SILK BLOCKER [address] [phone] documented as of this encounter Goals Goal Patient Goal Type Associated Problems Recent Progress Patient-Stated? Author Behavioral Health Behavioral Health On track( 023 4:31 PM CDT) Yes Agapito Cuenca, FIELD MARKETING DIRECTOR Note: I want to cope better with grief and depression over mom's and other issues Goal/Objective: Decrease grieving. Anticipated Time Frame for Goal Completion: 6 months Goal Reviewed with: patient Readiness to change: Ready to change Department associated with goal: [facility] Steps to achieve [...] Procedure Name Priority Date/Time Associated Diagnosis Comments VITAMIN D, 25 HYDROXY TOTAL Routine 12/2023 9:45 AM OUTPATIENT CODER BMI 38.0-38.9,adult FREE AND TOTAL TESTOSTERONE Routine 12/2023 9:45 AM OUTPATIENT CODER Irregular menses HEMOGLOBIN A1C W/ ESTIMATED GLUCOSE Routine 08/29/2023 9:45 AM OUTPATIENT CODER BMI 38.0-38.9,adult ESTRADIOL Routine 08/29/2023 9:45 AM OUTPATIENT CODER Irregular menses LUTEINIZING HORMONE Routine 08/29/2023 9 :45 AM OUTPATIENT CODER Irregular menses FOLLICLE STIMULATING HORMONE (FSH) Routine 08/29/2023 9:45 AM OUTPATIENT CODER Irregular menses PROGESTERONE Routine 08/29/2023 9:45 AM OUTPATIENT CODER Irregular menses CBC WITH AUTO DIFFERENTIAL Routine 08/29 9:45 AM OUTPATIENT CODER BMI 38.0-38.9,adult TESTOSTERONE, TOTAL AND FREE , ALICIA TGRP Routine 08/29/2023 9:45 AM OUTPATIENT CODER Irregular menses VITAMIN B12 Routine 08/29/2023 9:45 AM OUTPATIENT CODER BMI 38.0-38.9,adult THYROID STIMULATING HORMONE (TSH) Routine 08/29/2023 9:45 AM OUTPATIENT CODER Irregular menses BMI 38.0-38.9,adult PROGESTERONE Routine 08/29/2023 9:45 AM OUTPATIENT CODER Irregular menses LIPID PANEL Routine 08/29/2023 9:45 AM OUTPATIENT CODER BMI 38.0-38.9,adult LUTEINIZING HORMONE (LH) Routine 024 9:45 AM OUTPATIENT CODER Irregular menses FOLLICLE STIMULATING HORMONE (FSH) Routine 08/29/2023 9:45 AM OUTPATIENT CODER Irregular menses ESTRADIOL Routine 08/29/2023 9:45 AM OUTPATIENT CODER Irregular menses DEHYDROEPIANDROSTERONE SULFATE (DHEA-S) Routine 08/29/2023 9:45 AM OUTPATIENT CODER Irregular menses CMP (COMPREHENSIVE METABOLIC PANEL) Routine 08/29/2023 9:45 AM OUTPATIENT CODER BMI 38.0-38.9,adult COMPLETE BLOOD COUNT (CBC) WITH DIFF Routine 08/29/2023 9:45 AM OUTPATIENT CODER BMI 38.0-38.9,adult documented in this encounter Results * FOLLICLE STIMULATING HORMONE (FSH) (08/29/2023 9:45 AM OUTPATIENT CODER) FSH 6.1 mIU/mL [facility] [id number] A 08/29/2023 8:40 PM OUTPATIENT CODER [facility] Blood Venipuncture / Unknown 08/29/2023 9:45 AM OUTPATIENT CODER 08/29/2023 9:45 AM OUTPATIENT CODER Narrative [facility] - 08/29/2023 8:40 PM OUTPATIENT CODER Normally Menstruating Females Follicular Phase ? 3.0 - 8.1 Mid-cycle Peak ? 2.6 - 16.7 Luteal Phase ? 1.4 - 5.5 Postmenopausal Females 26.7 - 133.4 Omar Maxwell APRN, SILK BLOCKER CHEMISTRY ORDERABLES Final Result Performing Organization Address [facility] de Phone Number [facility] [address] [place] [address], [place] * LUTEINIZING HORMONE (08/29/2023 9:45 AM OUTPATIENT CODER) LH 2.4 mIU/mL [facility] [id number] A 08/29/2023 8:53 PM OUTPATIENT CODER [facility] Blood Venipuncture / Unknown 08/29/2023 9:45 AM OUTPATIENT CODER 08/29/2023 9:45 AM OUTPATIENT CODER Narrative [facility] - 08/29/2023 8:53 PM OUTPATIENT CODER Normally Menstruating Females: Follicular Phase: ? 1.8 - 11.8 Midcycle Peak: ?7.6 - 89.1 Luteal Phase: ? 0.6 - 14.0 Post Menopausal Females without HRT: 5.2 - 62.0 Omar Maxwell APRN, SILK BLOCKER CHEMISTRY ORDERABLES Final Result Performing Organization Address [facility] Co de Phone Number [facility] [address] [place] [address], [place] * TESTOSTERONE, TOTAL AND FREE, ALICIA TGRP (08/29/2023 9:45 AM OUTPATIENT CODER) TESTOSTERONE, FREE 0.62 <0.13 - 1.06 ng/dL 09/03/2023 1:53 PM OUTPATIENT CODER [facility] Comment: ADDITIONAL INFORMATION This test was developed and its performance characteristics determined by [facility] in a manner consistent with CLIA requirements. This test has not been cleared or approved by the U.S. Food and Drug Administration. TESTOSTERONE, TOTAL 25 8 - 60 ng/dL 09/03/2023 1:53 PM OUTPATIENT CODER [facility] Comment: ADDITIONAL INFORMATION Testing performed by Liquid Chromatography-Tandem Mass Spectrometry (LC-MS/MS). This test was developed and its performance characteristics determined by [facility] in a manner consistent with CLIA requirements. This test has not been cleared or approved by the U.S. Food and Drug Administration. Test Performed by: [facility] [place] [address] Wreath Maker: Viktor Story M.D. Ph.D.; CLIA# [id number] Blood Venipuncture / Unknown 08/29/2023 9:45 AM OUTPATIENT CODER 08/29/2023 9:45 AM OUTPATIENT CODER Omar Maxwell SPORTS EQUIPMENT RACKER, SILK BLOCKER LAB SEND OUTS Arlene l Result [facility] US * PROGESTERONE (08/29/2023 9:45 AM OUTPATIENT CODER) [facility] PROGESTERONE <0.5 ng/mL 08/29/2023 1:47 PM OUTPATIENT CODER [facility] Blood Venipuncture / Unknown 08/29/2023 9:45 AM OUTPATIENT CODER 08/29/2023 9:45 AM OUTPATIENT CODER Narrative [facility] - 08/29/2023 1:47 PM OUTPATIENT CODER FEMALE NORMAL RANGE <0.1-0.3 ??NG/ML ?? FOLLICULAR 1.2-15.9 ??NG/ML ?? LUTEAL <0.1-0.2 ??NG/ML ?? POSTMENOPAUSAL Omar Maxwell APRN, SILK BLOCKER CHEMISTRY ORDERABLES Final Result [facility] [address] [place] [address] * ESTRADIOL (08/29/2023 9:45 AM OUTPATIENT CODER) ESTRADIOL, SERUM 44 pg/mL [facility] [id number] A 08/29/2023 8:53 PM OUTPATIENT CODER [facility] Blood Venipuncture / Unknown 08/29/2023 9:45 AM OUTPATIENT CODER 08/29/2023 9:45 AM OUTPATIENT CODER Narrative [facility] - 08/29/2023 8:53 PM OUTPATIENT CODER ESTRADIOL VALUE NORMAL MENSTRUATING FEMALE FOLLICULAR PHASE ?21-251 pg/mL MID CYCLE PHASE ? 38-649 pg/mL LUTEAL PHASE ?21-312 pg/mL POST MENOPAUSAL ON HRT ?<10-144 pg/mL POST MENOPAUSAL NOT ON HRT ?<10-28 pg/mL MALES ? 11-44 pg/mL Patients undergoing Fulvestrant therapy should not be tested by this method as it could produce falsely elevated estradiol results. us Omar Maxwell APRN, SILK BLOCKER CHEMISTRY ORDERABLES Final Result [facility] [address] [place] [address], * CBC WITH AUTO DIFFERENTIAL (08/29/2023 9:45 AM OUTPATIENT CODER) WBC 6.66 4.00 - 12.00 10(3)/mcL 08/29/2023 12:21 PM OUTPATIENT CODER [facility] RBC 4.56 3.80 - 5.30 10(6)/mcL 08/29/2023 12:21 PM [facility] HEMOGLOBIN (HGB) 13.5 12.0 - 15.8 g/dL 08/29/2023 12:21 PM [facility] HEMATOCRIT (HCT) 40.7 36.0 - 47.0 % 08/29/2023 12:21 PM [facility] MCV 89.3 82.0 - 96.0 fL 08/29/2023 12:21 PM [facility] MCH 29.6 26.0 - 34.0 pg 08/29/2023 12:21 PM [facility] MCHC 33.2 31.0 - 36.0 g/dL 08/29/2023 12:21 PM [facility] PLATELET COUNT 338 140 - 440 10(3)/mcL 08/29/2023 12:21 PM [facility] RDW 13.2 11.8 - 15.5 % 08/29/2023 12:21 PM [facility] MPV 10.8 9.7 - 12.4 fL 08/29/2023 12:21 PM [facility] NEUTROPHILS 56.7 47.0 - 73.0 % 08/29/2023 12:21 PM [facility] LYMPHOCYTES 31.2 18.0 - 42.0 % 08/29/2023 12:21 PM [facility] MONOCYTES 6.9 4.0 - 12.0 % 08/29/2023 12:21 PM [facility] EOSINOPHILS 4.4 0.0 - 5.0 % 08/29/2023 12:21 PM [facility] BASOPHILS 0.8 0.0 - 1.0 % 08/29/2023 12:21 PM [facility] ABSOLUTE NEUTROPHILS 3.78 1.60 - 7.70 10(3)/mcL 08/29/2023 12:21 PM [facility] ABSOLUTE LYMPHOCYTES 2.08 1.30 - 3.20 10(3)/mcL 08/29/2023 12:21 PM OUTPATIENT CODER [facility] ABSOLUTE MONOCYTES 0.46 0.20 - 1.00 10(3)/[facility] 08/29/2023 12:21 PM OUTPATIENT CODER [facility] ABSOLUTE EOSINOPHIL 0.29 0.00 - 0.40 10(3)/mcL 08/29/2023 12:21 PM OUTPATIENT CODER [facility] ABSOLUTE BASOPHILS 0.05 0.00 - 0.10 10(3)/[facility] 08/29/2023 12:21 PM OUTPATIENT CODER [facility] NRBC PER 100 WBC 0 08/29/19 12:21 PM OUTPATIENT CODER [facility] Blood Venipuncture / Unknown 08/29/2023 9:45 AM OUTPATIENT CODER 08/29/2023 9:45 AM OUTPATIENT CODER Omar Maxwell APRN, CNP HEMATOLOGY ORDERABLE S Final Result [facility] [address] [place] [address] * DEHYDROEPIANDROSTERONE SULFATE (DHEA-S) (08/29/2023 9:45 AM OUTPATIENT CODER) DHEA Sulfate 226 30 - 512 ug/dL [facility] [id number] A 08/29/2023 8:53 PM OUTPATIENT CODER [facility] Blood Venipuncture / Unknown 08/29/2023 9:45 AM OUTPATIENT CODER 08/29/2023 9:45 AM OUTPATIENT CODER Omar Maxwell APRN, ARAM CHEMISTRY ORDERABLES Final Result [facility] [address] [place] [address], * VITAMIN D, 25 HYDROXY TOTAL (08/29/2023 9:45 AM OUTPATIENT CODER) VITAMIN D, 25 HYDROX 19 ng/mL 08/29/2023 1:54 PM OUTPATIENT CODER [facility] Blood Venipuncture / Unknown 08/29/2023 9:45 AM OUTPATIENT CODER 08/29/2023 9:45 AM OUTPATIENT CODER Narrative [facility] - 08/29/2023 1:54 PM OUTPATIENT CODER Published reference ranges for Vitamin D vary depending on time and place and method of testing, and on patient's age, sex, ethnicity and levels of other measured analytes such as parathormone, calcium and phosphorus. ??The result should be evaluated in conjunction with clinical findings and suspicions. [place] [facility] Clinical Practice Guidelines: Status Vitamin D levels (ng/mL) Deficient <=20 At risk of inadequacy 21-29 Sufficient 30-100 Centers of Disease Control and Prevention Guidelines: Status Vitamin D levels (ng/mL) Deficient <13 At risk of inadequacy 13-19 Sufficient 20-50 Possibly harmful >50 References: [place] [facility], 2010 Dietary reference intakes for calcium and vitamin D. [place]: ??The National Academies Press. Jaron M, Denilson N, Paul CAAL, et al., Evaluation, treatment, and prevention of Vitamin D deficiency: an Endocrinology Clinical Practice Guideline. JCEM 2011 96: 7 2581-6706. Yakov A, Ranjeet C, Corinne D, et al., Vitamin D Status: ??[place], 2000- 1005, [facility] data brief, no. 59, MD [place]: ??National Center for Health Statistics. 2010. Omar Maxwell APRN, CNP CHEMISTRY ORDERABLES Final Result [facility] [address] [place] [address] * VITAMIN B12 (08/29/2023 9:45 AM OUTPATIENT CODER) VITAMIN B12 728 213 - 816 pg/mL 08/29/2023 1:23 PM OUTPATIENT CODER [facility] Blood Venipuncture / Unknown 08/29/2023 9:45 AM OUTPATIENT CODER 08/29/2023 9:45 AM OUTPATIENT CODER us Omar Tayloreck SPORTS EQUIPMENT RACKER, SILK BLOCKER CHEMISTRY ORDERABLES Final Result Performing Organization Address City/[facility]/ZIP Co de Phone Number [facility] [address] [place] [address] * HEMOGLOBIN A1C W/ ESTIMATED GLUCOSE (08/29/2023 9:45 AM OUTPATIENT CODER) HGB-A1C 5.4 4.0 - 6.0 % 08/29/2023 12:39 PM OUTPATIENT CODER [facility] Est Average Glucose 108.3 mg/dL 08/29/2023 12:39 PM OUTPATIENT CODER [facility] Blood Venipuncture / Unknown 08/29/2023 9:45 AM OUTPATIENT CODER 08/29/2023 9:45 AM OUTPATIENT CODER Narrative [facility] - 08/29/2023 12:39 PM OUTPATIENT CODER HEMOGLOBIN A1C: DIABETIC PATIENTS: WELL-CONTROLLED: ?? 6.2 - 7.0 INTERMEDIATE WELL-CONTROLLED: ??7.0 - 9.0 POORLY-CONTROLLED: ??>9.0 us Omar Tayloreck SPORTS EQUIPMENT RACKER, SILK BLOCKER CHEMISTRY ORDERABLES Final Result Performing Organization Address [facility] Co de Phone Number [facility] [address] [place] [address] * THYROID STIMULATING HORMONE (TSH) (08/29/2023 9:45 AM OUTPATIENT CODER) TSH 1.486 0.300 - 5.000 mIU/L 08/29/2023 1:08 PM OUTPATIENT CODER [facility] Blood Venipuncture / Unknown 08/29/2023 9:45 AM OUTPATIENT CODER 08/29/2023 9:45 AM OUTPATIENT CODER us Omar Strohbeck SPORTS EQUIPMENT RACKER, SILK BLOCKER CHEMISTRY ORDERABLES Final Result Performing Organization Address City/[facility]/ZIP Co de Phone Number [facility] [address] [place] [address] * LIPID PANEL (08/29/2023 9:45 AM OUTPATIENT CODER) CHOLESTEROL 159 <200 mg/dL 08/29/2023 12:55 PM OUTPATIENT CODER [facility] TRIGLYCERIDES 90 <150 mg/dL 08/29/2023 12:55 PM OUTPATIENT CODER [facility] HDL CHOLESTEROL 63 >40 mg/dL 12:55 PM OUTPATIENT CODER [facility] LDL 78 <130 mg/dL 08/29/2023 12:55 PM OUTPATIENT CODER [facility] VLDL 18 10 - 50 mg/dL 08/29/2023 12:55 PM [facility] CHOL/HDL RATIO 2.5 0.0 - 4.4 08/29/2023 12:55 PM [facility] NON-HDL CHOLESTEROL 96 <130 mg/dL 08/29/2023 12:55 PM [facility] IS THE PATIENT REQUIRED TO BE FASTING? Yes 08/29/2023 12:55 PM [facility] HAS THE PATIENT BEEN FASTING? Yes 08/29/2023 12:55 PM [facility] Blood Venipuncture / Unknown 08/29/2023 9:45 AM OUTPATIENT CODER 08/29/2023 9:45 AM [facility] us Omar Maxwell SPORTS EQUIPMENT RACKER, SILK BLOCKER CHEMISTRY ORDERABLES Final Result [facility] [address] [place] [address] * (ABNORMAL) CMP (COMPREHENSIVE METABOLIC PANEL) (08/29/2023 9:45 AM OUTPATIENT CODER) SODIUM 139 136 - 145 mmol/L 08/29/2023 12:55 PM [facility] POTASSIUM 3.9 3.5 - 5.1 mmol/L 08/29/2023 12:55 PM [facility] CHLORIDE 110(H) 98 - 107 mmol/L 08/29/2023 12:55 PM [facility] CO2, VENOUS 21(L) 22 - 30 mmol/L 08/29/2023 12:55 PM [facility] ANION GAP 11.9 <18.0 mmol/L 08/29/2023 12:55 PM [facility] GLUCOSE 84 70 - 99 mg/dL 08/29/2023 12:55 PM [facility] BUN 8 5 - 18 mg/dL 08/29/2023 12:55 PM [facility] CREATININE, BLOOD 0.66 0.60 - 1.00 mg/dL 08/29/2023 12:55 PM [facility] BUN/CREATININE RATIO 12 12 - 20 ratio 08/29/2023 12:55 PM [facility] TOTAL PROTEIN 7.6 6.3 - 8.2 g/dL 08/29/2023 12:55 PM [facility] ALBUMIN 4.3 3.5 - 5.0 g/dL 08/29/2023 12:55 PM [facility] A/G RATIO 1.3 1.0 - 2.2 08/29/2023 12:55 PM [facility] CALCIUM 8.9 8.7 - 10.5 mg/dL 08/29/2023 12:55 PM [facility] T BILI 0.2 0.2 - 1.2 mg/dL 08/29/2023 12:55 PM [facility] SGOT (AST) 12 5 - 34 U/L 08/29/2023 12:55 PM [facility] SGPT (ALT) 15 0 - 55 U/L 08/29/2023 12:55 PM [facility] ALKALINE PHOSPHATASE 105 40 - 150 U/L 08/29/2023 12:55 PM [facility] IS THE PATIENT REQUIRED TO BE FASTING? No 08/29/2023 12:55 PM [facility] GFR, ESTIMATED >60 >=60 08/29/2023 12:55 PM [facility] Comment: Creatinine Clearance is the preferred criteria for selecting drug dose adjustments in renally impaired patients. ??The GFR is provided as additional pertinent clinical information. GFR is reported in mL/min/1.73 sq m. Calculation based on the Chronic Kidney Disease Epidemiology Collaboration (CKD- EPI) equation refit without adjustment for race. GFR, EST. >60 >=60 024 12:55 PM OUTPATIENT CODER [facility] GFR, EST. NONAFRICAN >60 >=60 08/29/2023 12:55 PM OUTPATIENT CODER [facility] Blood Venipuncture / Unknown 08/29/2023 9:45 AM OUTPATIENT CODER 08/29/2023 9:45 AM OUTPATIENT CODER us Omar Maxwell APRN, CNP CHEMISTRY ORDERABLES Final Result [facility] [address] [place] [address] documented in this encounter Visit Diagnoses Diagnosis BMI 38.0-38.9,adult Body Mass Index 38.0-38.9, adult Irregular menses Irregular menstrual cycle documented in this encounter Additional Health Concerns Assessment Noted Time PHQ-9 Depression Total Score: 3 09/24/19 23 10:00 AM OUTPATIENT CODER documented as of this encounter Care Teams Combat Systems Operator Relationship Specialty Start Date End Date Omar Maxwell APRN, ARAM #[address] [phone] PCP - General Advanced Practice Nurse 10/30/20 Omar Maxwell APRN, CNP #[address] [address] Nurse Practitioner Advanced Practice Nurse 10/28/20 documented as of this encounter
--- OUTSIDE RECORDS SUMMARY | 2024-07-28 05:10 | XMS_ITS | Encounter Summary ---
Author Organization [employer] Care Team Providers Care Marketing Intelligence Analyst Name Role Phone Bessy Alcaraz APRN, CNP Unavailable [phone] Bessy Alcaraz APRN, CNP Primary Care Provid er Encounter Details Date Type Department Care Team (Latest Contact Info) Description 09/23/2022 Travel Social History Tobacco Use Types Packs/Day [...] suspected to have Coronavirus/COVID-19? No / Unsure 09/23/2022 9:52 AM [employer] MANAGEMENT documented as of this encounter Functional Status * Question Answer Date of Assessment Author Little interest or pleasure in doing things Not at all 09/23/2022 10:00 AM [employer] SALES [employer] MANAGEMENT Aida Daigle Feeling down, depressed, or hopeless Several days 09/23/2022 10:00 AM Aida Lucero th * Over the past 2 weeks, how often have you been bothered by any of the following problems? Question Answer Date of Assessment Author Patient Health Questionnaire -2 Score 1 09/23/2022 10:00 AM [employer] SALES [employer] MANAGEMENT Aida Daigle documented as of this encounter Plan of Treatment Upcoming Encounters Date Type Department Care Team (Late st Contact Info) Description 08/19/2024 8:45 AM [employer] SALES [employer] MANAGEMENT Office Visit [facility] [address] [place] [address] Bessy Alcaraz APRN, ARAM #[address] [phone] documented as of this encounter Visit Diagnoses Not on filedocumented in this encounter Additional Health Concerns Assessment Noted Time PHQ-9 Depression Total Score: 3 09/24/19 10:00 AM [employer] MANA[employer]EMENT documented as of this encounter Care Teams Marketing Intelligence Analyst Relationship Specialty Start Date End Date Bessy Alcaraz APRN, AR[facility] #[address] [phone] PCP - General Advanced Practice Nurse 10/30/20 Bessy Alcaraz APRN, AR[facility] #[address] [phone] Nurse Practitioner Advanced Practice Nurse 10/28/20 documented as of this encounter
--- OUTSIDE RECORDS SUMMARY | 2024-07-28 05:10 | XMS_ITS | Encounter Summary ---
Author Organization [facility] Address [address] [place] [address] Phone Care Team Providers Care Analytical Statistician Name Role Phone Bessy Alcaraz APRN, CNP Unavailable [phone] Bessy Alcaraz APRN, CNP Primary Care Provid er Reason for Referral * Radiology Services (Routine) - Closed Specialty Diagnoses / Procedures Referred By Contjanis abrams Referred To Contact Radiology Diagnoses RUQ pain Procedures NM HEPATOBILIARY WITH PHARM Bessy Alcaraz APRN, CNP #[address] [address] Phone: tel: fax: Referral ID Status Reason Start Date Expiration Date Visits Re quested Visits Authorized [id number] Closed 04/18/2022 1 1 Reason for Visit * Radiology Services (Routine) - Closed Specialty Diagnoses / Procedures Referred By Edmund barams Referred To Contact Radiology Diagnoses RUQ pain Procedures NM HEPATOBILIARY WITH PHARM Bessy Alcaraz APRN, CNP #[address] [address] Phone: tel: fax: Referral ID Status Reason Start Date Expiration Date Visits Re quested Visits Authorized [id number] Closed 04/18/2022 1 1 Encounter Details Date Type Department Care Team (Latest Contact Info) Description 04/27/2022 9:25 AM CDT - 04/27/2022 11:59 PM CDT Hospital Encounter [facility] Nuclear Medicine [address] [place] [address] Bessy Alcaraz APRN, CNP #2 [facility] [address] [place] [address] Discharge Disposition: Discharged to home or Selfcare [...] AM CDT documented as of this encounter Medications at Time of Discharge atomoxetine 80 MG CapsuleIndications: Attention deficit hyperactivity disorder (ADHD), combined type Take 1 Capsule by mouth daily. 30 Capsule 04/15/2022 3 documented as of this encounter Progress Notes * Bessy Alcaraz APRN, CNP - 04/27/2022 10:00 AM CDT Normal hida scan, mychart message sent. documented in this encounter Plan of Treatment Upcoming Encounters Date Type Department Care Team (Late Contact Info) Description 08/19/2024 8:45 AM PATTERNMAKER APPRENTICE WOOD Office Visit [facility] - Family Medicine - [place] [address] [place] [address] Bessy Alcaraz APRN, BUNDLE CLERK [address] [phone] documented as of this encounter Procedures Procedure Name Priority Date/Time Associated Diagnosis Comments NM HEPATOBILIARY WITH PHARM Routine 04/27/2022 11:40 AM CDT RUQ pain documented in this encounter Results * NM HEPATOBILIARY WITH PHARM (04/27/2022 11:40 AM CDT) Anatomical Region Laterality Modality Abdomen N/A Nuclear Medicine 04/27/2022 12:0 4 PM CDT Impressions 04/27/2022 12:07 PM CDT IMPRESSION: 1. ?? No evidence of cystic duct obstruction. 2. ?? Normal gallbladder ejection fraction. ?? Narrative 04/27/2022 12:07 PM CDT EXAM DESCRIPTION: ?? NM HEPATOBILIARY WITH PHARM REASON FOR STUDY: Right upper quadrant pain ??for 3-4 months. RADIOPHARMACEUTICAL: 5.1 ??mCi Tc-99m mebrofenin via a ??right antecubital ??IV site and 8 oz Ensure Plus or equivalent p.o. COMPARISON: 04/15/2022 right upper quadrant ultrasound. TECHNIQUE: Following the intravenous administration of the radiopharmaceutical, sequential abdominal images were obtained. A region of interest was drawn around the gallbladder with an ejection fraction calculated. FINDINGS: There is prompt, homogenous tracer localization throughout the liver. There is normal visualization of the intrahepatic ducts, common bile duct, and gallbladder. ??There is normal biliary to bowel transit. Following the oral administration of Ensure Plus, the gallbladder ejection fraction was calculated and was ??64 % (normal: greater than 40%, equivocal: 30-40%, and abnormal: less than 30%). THIS IS AN ELECTRONICALLY VERIFIED FINAL REPORT 04/27/2022 12:04 PM - Electronically signed by ??Butch Costa.D. CH: DARIELA D: ??04/27/2022 12:04 PM T: ??04/27/2022 12:04 PM Report ID: [id number] Reading Location: ??[id number] Procedure Note Butch Albrecht Jr., MD - 04/27/2022 EXAM DESCRIPTION: NM HEPATOBILIARY WITH PHARM REASON FOR STUDY: Right upper quadrant pain for 3-4 months. RADIOPHARMACEUTICAL: 5.1 mCi Tc-99m mebrofenin via a right antecubital IV site and 8 oz Ensure Plus or equivalent p.o. COMPARISON: 04/15/2022 right upper quadrant ultrasound. TECHNIQUE: Following the intravenous administration of the radiopharmaceutical, sequential abdominal images were obtained. A region of interest was drawn around the gallbladder with an ejection fraction calculated. FINDINGS: There is prompt, homogenous tracer localization throughout the liver. There is normal visualization of the intrahepatic ducts, common bile duct, and gallbladder. There is normal biliary to bowel transit. Following the oral administration of Ensure Plus, the gallbladder ejection fraction was calculated and was 64 % (normal: greater than 40%, equivocal: 30-40%, and abnormal: less than 30%). THIS IS AN ELECTRONICALLY VERIFIED FINAL REPORT 04/27/2022 12:04 PM - Electronically signed by Butch Albrecht M.D. CH: Report ID: [id number] Reading Location: [id number] IMPRESSION: 1. No evidence of cystic duct obstruction. 2. Normal gallbladder ejection fraction. Bessy Alcaraz TELEPHONER, BUNDLE CLERK IMG NM ORDERABLES Fi nal Result documented in this encounter Visit Diagnoses Diagnosis RUQ pain Abdominal pain, right upper quadrant documented in this encounter Administered Medications Inactive Administered Medications - up to 3 most recent administrations Medication Order MAR Action Action Date Dose Rate Site TC-99M MEBROFENIN PER DOSE,UP TO 15 MCI 1 Dose, Intravenous, ONCE, 1 dose, On Mon04/27/22 at 1030 Given 04/27/2022 9:45 AM CDT 1 Dose documented in this encounter Additional Health Concerns Assessment Noted Time PHQ-9 Depression Total Score: 11 10/26/ 022 4:00 PM CDT documented as of this encounter Care Teams Analytical Statistician Relationship Specialty Start Date End Date Bessy Alcaraz APRN, ARAM #[address] [address] PCP - General Advanced Practice Nurse 10/30/20 Bessy Alcaraz APRN, CNP #[address] [address] Nurse Practitioner Advanced Practice Nurse 10/28/20 documented as of this encounter
--- OUTSIDE RECORDS SUMMARY | 2024-07-28 05:10 | XMS_ITS | Encounter Summary ---
Author Organization [facility] Address [address] [place] [address] Phone Care Team Providers Care Line Maintainer Name Role Phone Bessy Alcaraz APRN, CNP Unavailable Bessy Alcaraz APRN, CNP Primary Care Provid er Reason for Visit * Reason Onset Date Comments Ear Pain 07/27/2023 Encounter Details Date Type Department Care Team (Late st Contact Info) Description 07/27/2023 Nurse Triage [facility] [address] [place] [address] Bessy Alcaraz APRN, ARAM #[address] [address] Ear Pain Social History Tobacco Use Types Packs/Day Years [...] encounter Miscellaneous Notes * Telephone Encounter - Ilene Chong RN - 07/27/2023 8:47 AM SERVICE STATION ATTENDANT SITUATION: Patient calling to follow up on ear infection, new ear pain BACKGROUND: Urgent care (non [facility]) about 3 days ago and given prescription for Amoxicillin for left ear infection which she has been taking as prescribed ASSESSMENT: Symptom Description / Location: Right ear pain and drainage started yesterday, 07/26/23 Unsure of drainage color Had been having left ear drainage, unsure if she still is Has taken full dose of amoxicillin Monday, Monday and Monday Pain (0-10): left ear pain, 5/10. Right ear pain 4/10 Temp: I don't anymore , reports last fever on 07/25/23 Tmax 100 Treatment / Response: on amoxicillin, Tylenol/ibuprofen for comfort-not really helping RECOMMENDATION: See care advice and disposition for Guideline First positive answer recorded, all responses to prior questions were negative. If symptoms increase, change or if new symptoms develop, call your HCP or call back. Recommendations were based on caller information and is not a diagnosis. Verified and reviewed all triage information with caller. Reason for Disposition ? ? [1] Taking antibiotic > 72 hours (3 days) and [2] pain persists or recurs Protocols used: EAR - OTITIS MEDIA FOLLOW-UP CALL-A- All Patient Appointments Provider Department Dept Phone 07/27/2023 11:15 AM Manuel Quintero [facility] [phone] 08/04/2023 11:00 AM Bessy Alcaraz [facility] [phone] ICE STATION ATTENDANT * Telephone Encounter - [place] - 07/27/2023 8:42 AM CST Symptoms: Earache, Ear Discharge Outcome: Transfer to head boys golf coach queue Reason: Bloody or clear discharge The caller accepted this outcome ICE STATION ATTENDANT documented in this encounter Plan of Treatment Upcoming Encounters Date Type Department Care Team (Late st Contact Info) Description 08/19/2024 8:45 AM SERVICE STATION ATTENDANT Office Visit [facility] - Family Medicine - [place] [address] [place] [address] Bessy Alcaraz APRN, ARAM #[address] [address] documented as of this encounter Goals Goal Patient Goal Type Associated Problems Recent Progress Patient-Stated? Author Behavioral Health Behavioral Health On track( 023 4:31 PM CDT) Yes Agapito Cuenca, MASTER MERCHANDISER Note: I want to cope better with grief and depression over mom's and other issues Goal/Objective: Decrease grieving. Anticipated Time Frame for Goal Completion: 6 months Goal Reviewed with: patient Readiness to change: Ready to change Department associated with goal: [facility] Steps to achieve [...] Total Score: 3 09/24/19 23 10:00 AM SERVICE STATION ATTENDANT documented as of this encounter Care Teams Line Maintainer Relationship Specialty Start Date End Date Bessy Alcaraz APRN, ARAM #[address] [address] PCP - General Advanced Practice Nurse 10/30/20 Bessy Alcaraz APRN, ARAM [address] [address] Nurse Practitioner Advanced Practice Nurse 10/28/20 documented as of this encounter
--- OUTSIDE RECORDS SUMMARY | 2024-07-28 05:10 | XMS_ITS | Encounter Summary ---
Author Organization [facility] Address [address] [place] [address] Phone Care Team Providers Care Digital Production Artist Name Role Phone Bessy Alcaraz APRN, CNP Unavailable [phone]- [phone] Bessy Alcaraz APRN, CNP Primary Care Provid er Molly Costello APRN, CNP Unavailable Reason for Referral * Consult, Test & Initiate Treatment (Routine) - Closed Specialty Diagnoses / Procedures Referred By Edmund abrams Referred To Contact Diagnoses Skin lesion Bessy Alcaraz APRN, CNP [address] [address] Phone: tel: fax: DERMATOLOGY & MOHS SURGERY [facility] [address] [facility], 4TH [place] [address] Phone: tel: Referral ID Status Reason Start Date Expiration Date Visits Re quested Visits Authorized [id number] Closed 03/05/2024 1 1 Scheduling Instructions Cee is being referred to Dermatology & Mohs Surgery [place], [place] or other specialist in patient's insurance network for skin lesion right thigh. See below for Cee's current medications, allergies and problem list. CURRENT MEDS: Current Outpatient Medications: atomoxetine 80 MG Capsule, Take 1 Capsule by mouth daily., Disp: 90 Capsule, Rfl: 1 buPROPion (WELLBUTRIN) 150 MG XL tablet, Take 1 Tablet by mouth every morning., Disp: 90 Tablet, Rfl: 1 No current facility-administered medications for this visit. ALLERGIES: No Known Allergies PROBLEM LIST: Patient Active Problem List: MDD (major depressive disorder), recurrent episode, moderate (HCC) Generalized anxiety disorder PTSD (post-traumatic stress disorder) Disordered eating Acute cervicitis Depressive disorder History of iron deficiency anemia Irritable bowel syndrome Reason for Visit * Reason Comments Follow-up 3 mo f/uStates 1 mon th ago Wellbutrin was added to her Strattera and she is not sure it is helping. She is still feeling tired and having difficulties concentrating. Encounter Details Date Type Department Care Team (Late st Contact Info) Description 03/05/2024 8:45 AM CDT Office Visit [facility] Medical Group - Family [facility] #[address] [place] [address] Bessy Alcaraz APRN, CNP #[address] [address] Attention deficit hyperactivity disorder (ADHD), combined type (Primary Dx); Skin lesion Discharge Disposition: Discharged to home or Selfcare Social History Tobacco Use Types Packs/Day Years Used Date Smoking Tobacco: Never Smokeless Tobacco: Never Alcohol Use Standard Drinks/Week Comments Yes 0 (1 standard drink = 0.6 oz pur e alcohol) Rarely [facility] Utilities Answer Date Recorded In the past 12 months has [employer], gas, oil, or water [facility] threatened to shut off services in your home? No 03/05/2024 Social Connection and Isolat ion Panel [NHANES] Answer Date Recorded In a typical week, how many times do you talk on the phone with family, friends, or neighbors? More than three times a week 03/05/2024 How often do you get togethe r with friends or relatives? Once a week 03/05/2024 How often do you attend [facility] services? Never 03/05/2024 Do you belong to any clubs o r organizations such as restorationist groups, unions, fraternal or athletic groups, or school groups? No 03/05/2024 How often do you attend meet ings of the clubs or organizations you belong to? Never 03/05/2024 Are you , , di vorced, , never , or living with a partner? 03/05/2024 AUDIT-C Answer Date Recorded Q1: How often do you have a drink containing alc ohol? Monthly or less 03/05/2024 Q2: How many drinks containi ng alcohol do you have on a typical day when you are drinking? 1 or 2 03/05/2024 Q3: How often do you have si x or more drinks on one occasion? Never 03/05/2024 Overall Financial Resource Strain (CARDIA) Answe r Date Recorded How hard is it for you to pa y for the very basics like food, housing, medical care, and heating? Patient declined 03/05/2024 PHQ-2 Answer Date Recorded Total Score - Questions 1-9 2 /11/2023 [facility] Occupat ional [facility] - Occupational Stress Questionnaire Answer Date Recorded Do you feel stress - tense, restless, nervous, or anxious, or unable to sleep at night because your mind is troubled all the time - these days? Patient declined 03/05/2024 Exercise Vital Sign Answer Date Recorde d On average, how many days pe r week do you engage in moderate to strenuous exercise (like a brisk walk)? 3 days 03/05/2024 On average, how many minutes do you engage in exercise at this level? 30 min 03/05/2024 Hunger Vital Sign Answer Date Recorded Within the past 12 months, y ou worried that your food would run out before you got the money to buy more. Patient declined Within the past 12 months, t he food you bought just didn't last and you didn't have money to get more. Patient declined PRAPARE - Transportation Answer Date Re corded In the past 12 months, has l ack of transportation kept you from medical appointments or from getting medications? Patient declined 03/05/2024 In the past 12 months, has l ack of transportation kept you from meetings, work, or from getting things needed for daily living? Patient declined 03/05/2024 Housing Stability Vital Sign Answer Harley e [...] place to sleep or slept in a residential (including now)? No 11/27/2023 Housing Stability Vital Sign Answer Harley e Recorded In the last 12 months, was t here a time when you were not able to pay the mortgage or rent on time? Patient declined 03/05/20 24 Number of Times Moved in the Last Year Not on fi le 03/05/2024 At any time in the past 12 m [facility], were you homeless or living in a residential (including now)? Patient declined 03/05/2024 Education Answer Date Recorded What is the [...] Sign Reading Time Taken Comments Blood Pressure 112/80 03/05/2024 8:35 AM CDT Pulse 84 03/05/2024 8:35 AM CDT Temperature 36.6 ??C (97.8 ??F) 03/05/2024 8:35 AM CD T Respiratory Rate 16 03/05/2024 8:35 AM CDT Oxygen Saturation 99% 03/05/2024 8:35 AM CDT Inhaled Oxygen Concentration - - Weight 83.5 kg (184 lb) 03/05/2024 8:35 AM CDT Height 165.1 cm (5' 5 ) 03/05/2024 8:35 AM CDT Body Mass Index 30.62 03/05/2024 8:35 AM CDT documented in this encounter Functional Status * Audit-C Score Answer Date of Assessment Author 1 03/05/2024 8:38 AM CDT [facility] * Within the last year, have you been humiliated or emotionally abused in other ways by your partner or ex-partner? Answer Date of Assessment Author No 03/05/2024 8:38 AM CDT [facility] * Within the last year, have you been afraid of your partner or ex-partner? Answer Date of Assessment Author No 03/05/2024 8:38 AM CDT [facility] * Within the last year, have you been raped or forced to have any kind of sexual activity by your partner or ex-partner? Answer Date of Assessment Author No 03/05/2024 8:38 AM CDT [facility] * Within the last year, have you been kicked, hit, slapped, or otherwise physically hurt by your partner or ex-partner? Answer Date of Assessment Author No 03/05/2024 8:38 AM CDT [facility] * Q1: How often do you have a drink containing alcohol? Answer Date of Assessment Author Monthly or less 03/05/2024 8:38 AM CDT [facility] * Q2: How many drinks containing alcohol do you have on a typical day when you are drinking? Answer Date of Assessment Author 1 or 2 03/05/2024 8:38 AM CDT [facility] * Q3: How often do you have six or more drinks on one occasion? Answer Date of Assessment Author Never 03/05/2024 8:38 AM CDT [facility] * Question Answer Date of Assessment Author Little interest or pleasure in doing things Not at all 03/05/2024 8:40 AM [place] Tabitha Willams MA Feeling down, depressed, or hopeless Not at all 03/05/2024 8:40 AM CDT Tabitha Willams MA * Over the past 2 weeks, how often have you been bothered by any of the following problems? Question Answer Date of Assessment Author Patient Health Questionnaire -2 Score 0 03/05/2024 8:40 AM [place] Tabitha Willams MA documented as of this encounter Progress Notes * Bessy Alcaraz, RED, ELECTRIC DISTRIBUTION CHECKER - 03/05/2024 8:45 AM CDT [facility] [address] [address] Dept: [phone] Dept Loc: [phone] Loc Patient: Cee March : 1995 Sex: female Subjective Subjective: HPI: Cee March presents for Follow-up (3 mo f/u/States 1 month ago Wellbutrin was added to her Strattera and she is not sure it is helping. She is still feeling tired and having difficulties concentrating.) . Patient presents today for ADHD follow up. She was switched from Strattera to Concerta due to ineffectiveness. She noted she started binge eating so she went back to Strattera. She has lost 6 lbs since her last visit. She is back on the Atomoxetine and the nausea is better. Moodiness is well controlled on wellbutrin. She is concerned about her ADHD when she returns to school in July but would like to stay on the Atomoxetine. She also needs a new referral for dermatology. Past Medical History Positives Diagnosis Date Abdominal pain Anemia Anxiety and depression Gastritis GERD (gastroesophageal reflux disease) Heart murmur 2019 just found, goes to doctor for this 01/08/19 IBS (irritable bowel syndrome) TMJ (temporomandibular joint syndrome) Current Outpatient Medications on File Prior to Visit Medication Sig Dispense Refill [DISCONTINUED] Vyvanse 30 MG Capsule Take 1 Capsule by mouth daily. 14 Capsule 0 No current facility-administered medications on file prior to visit. No Known Allergies Review of Systems Constitutional: Negative for activity change, appetite change, chills, fatigue and fever. Respiratory: Negative for cough, chest tightness, shortness of breath and wheezing. Cardiovascular: Negative for chest pain, palpitations and leg swelling. Gastrointestinal: Negative for constipation, diarrhea, nausea and vomiting. Neurological: Negative for dizziness, light-headedness and headaches. Psychiatric/Behavioral: Positive for decreased concentration. Negative for agitation, behavioral problems, confusion, dysphoric mood, hallucinations, self- injury, sleep disturbance and suicidal ideas. The patient is not nervous/anxious and is not hyperactive. Objective Objective: BP 112/80 (BP Location: Left Arm, BP Position: Sitting) Pulse 84 Temp 97.8 ??F (36.6 ??C) (Temporal) Resp 16 Ht 5' 5 (1.651 m) Wt 184 lb (83.5 kg) LMP 03/05/2024 (Exact Date) SpO2 99% BMI 30.62 kg/m?? Physical Exam Vitals and nursing note reviewed. Constitutional: General: She is not in acute distress. Appearance: Normal appearance. She is well-developed. She is not diaphoretic. HENT: Head: Normocephalic and atraumatic. Right Ear: External ear normal. Left Ear: External ear normal. Eyes: Pupils: Pupils are equal, round, and [...] No stridor. No wheezing, rhonchi or rales. Musculoskeletal: General: No tenderness. Normal range of motion. Cervical back: Normal range of motion. Skin: General: Skin is dry. Capillary Refill: Capillary refill takes less than 2 seconds. Findings: Lesion (right thigh) present. Neurological: Mental Status: She is alert and oriented to person, place, and time. Mental status is at baseline. Psychiatric: Mood and Affect: Mood normal. Behavior: Behavior normal. Thought Content: Thought content normal. Judgment: Judgment normal. Medical Decision Making: Assessment & Plan Diagnoses and all orders for this visit: Attention deficit hyperactivity disorder (ADHD), combined type - atomoxetine 80 MG Capsule; Take 1 Capsule by mouth daily. - buPROPion (WELLBUTRIN) 150 MG XL tablet; Take 1 Tablet by mouth every morning. Skin lesion - EXTERNAL DERMATOLOGY REFERRAL; Future Patient reports that with Concerta she was having side effects. She then restarted Strattera and taking along with the Wellbutrin states that she feels like it does help manage her ADHD although she is concerned when she will start school again. She will continue this medication combination at thistime and will increase Strattera to 80 mg. She is going to start school in July consider go back on Adderall and continuing Wellbutrin she did better in this in the past except for had mood swings. However she was not on Wellbutrin at the time. Will discuss in July when she returns back to school. Patient verbalized understanding. The referral placed for Dermatology. No follow-ups on file. documented in this encounter Plan of Treatment Upcoming Encounters Date Type Department Care Team (Late st Contact Info) Description 08/19/2024 8:45 AM RN FAMILY PRACTICE Office Visit [facility] Medical Group - Family Medicine [facility] [address]2 [place] [address] Bessy Alcaraz APRN, CNP #[address] [address] Scheduled Referrals Name Type Priority Associated Diagnoses Order Schedule EXTERNAL DERMATOLOGY REFERRAL Outpatient Referral Routine Skin lesion Expected: 03/05/2024, Expires: 03/05/2025 documented as of this encounter Goals Goal Patient Goal Type Associated Problems Recent Progress Patient-Stated? Author Behavioral Health Behavioral Health On track( 023 4:31 PM CDT) Yes Agapito Cuenca, BUSINESS PERFORMANCE ANALYST Note: I want to cope better with grief and depression over mom's and other issues Goal/Objective: Decrease grieving. Anticipated Time Frame for Goal Completion: 6 months Goal Reviewed with: patient Readiness to change: Ready to change Department associated with goal: [facility] Steps to achieve goal: [...] deficit hyperactivity disorder (ADHD), combined type- Primary Skin lesion Unspecified disorder of skin and subcutaneous tissue documented in this encounter Additional Health Concerns Assessment Noted Time PHQ-9 Depression Total Score: 2 09/26/19 1:32 PM RN FAMILY PRACTICE documented as of this encounter Care Teams Digital Production Artist Relationship Specialty Start Date End Date Bessy Alcaraz APRN, ARAM #[address] [address] PCP - General Advanced Practice Nurse 10/30/20 Bessy Alcaraz APRN, ARAM #[address] [address] Nurse Practitioner Advanced Practice Nurse 10/28/20 Molly Costello APRN, ARAM [address] [place] [address] Nurse Practitioner Advanced Practice Nurse 10/05/23 documented as of this encounter
--- OUTSIDE RECORDS SUMMARY | 2024-07-28 05:10 | XMS_ITS | Encounter Summary ---
Author Organization [facility] Address [address] [place] [address] Phone Care Team Providers Care Insurance Plan Specialist Name Role Phone Bessy Alcaraz APRN, CNP Unavailable + [phone] Bessy Alcaraz APRN, CNP Primary Care Provid er Reason for Visit * Reason Comments Depression * Auth/Cert (Routine) Specialty Diagnoses / Procedures Referred By Edmund abrams Referred To Contact Referral ID Status Reason Start Date Expiration Date Visits Re quested Visits Authorized [id number] 1 1 Encounter Details Date Type Department Care Team (Latest Contact Info) Description 10/07/2022 10:00 AM CDT Outpatient Clinic Visit [facility] [address] [place] [phone] Bessy Alcaraz APRN, ARAM #[address] [phone] Agapito Cuenca LCSW [address] [place] [address] Grief reaction; MDD (major depressive disorder), recurrent episode, moderate (HCC); Anxiety Discharge Disposition: Discharged to home or Selfcare [...] suspected to have Coronavirus/COVID-19? No / Unsure 10/06/2022 9:19 AM CDT documented as of this encounter Patient Instructions * Patient Instructions* Agapito Cuenca, DICTATING MACHINE TYPIST - 10/07/2022 10:00 AM CDT Images from the original note were not included. Suicide Hotlines - Crisis Intervention 13/02 Intervention Team [facility] Crisis Intervention Team?[phone] ([facility] Crisis Intervention Team?.. [phone] ([facility] Can be used by individual, PD, Hospitals, family, friend etc. for in-home assessment of concerns for someone's mental health Local Numbers - Behavioral Health Response (BHR)?[phone] / [phone] ([place]) Life Crisis Services?.619-378- QMIS (7008) ([place]) CARES Line (Medicaid patients up to age 21)???[phone] If non-Medicaid patient, still need tocall Cares Line and if screened out will be sent to [facility] or [place] for follow up Crisis Intervention Team National [facility] - National Suicide Prevention Hotline: ?.988 or 0-917-346-TALK (0791) Sexual Assault Hotline?9-931-707-[place] (3477) Domestic Violence Hotline?.6-210-191-SAFE (7810) [facility] Lifeline? Trans Lifeline?8-100- 911-7184 LGBTQ Partner Abuse & Sexual Assault Line?.1-200.437.7098 Crisis Text Line?Text help to 053461 Warm Lines [place] Warmline?9-163-283-79 [address] [place] Warmline? 9a-9p/7 days a week Compassionate Ear Warmline?..7-992-527-8488 MENTAL HEALTH EMERGENCY- Assessment for Crisis/or/ED's with Inpatient Units Behavioral Health Urgent Care [facility] Behavioral Health Urgent Care [phone] (5yrs old to Adult) [address] [facility] [address] [place] [address] Monday - Monday 9:00am - 7:00pm *Last patient seen at 6:00pm Walk-In Crisis or Telehealth for age 18+ Crisis Walk In: Call for Help's Living Room: Monday-Monday 8:30am-5pm [address] [place] [address] Crisis Telehealth: Monday, Monday, Monday 8:30am-5:00pm and Monday, 12:00pm-8:00pm. Must have good internet connection. To access telehealth go to ???Talk to Someone Now?? or call [phone] ext. 109. No cost and no insurance necessary. Emergency Department diversion program. [facility] (Intake Adult Acute) [phone] [place] [address]. https://[facility].org/services/pzuhlhyfvx-jhsmbd-ivi-wellness [facility] [phone] (Intake Adult 18+-Used by clinician to alert that patient will be coming in through the emergency room) [address] [place] [address] [facility] (13/02 - emergency services for children age 4+, adolescent, adult) [phone] [address]. Adult Inpatient Facility. http://[facility].org/ [facility] Sexual Assault Victims Care Unit. (Children, adolescent, adult) 13/02 crisis intervention: 808.282.2844 Hotline Number and Main Office. Community Stabilization (Homeless adults with Mental Illness) 524.688.7754. http://[facility].org/ [facility] 122-366-5114471.967.9573 (children, adolescent, adult) [address] [place] [address] http://[facility].com/admission-informationfaqs/ [facility] Behavioral Health [phone] Option #1 (adult) [address] [place] [address] https://www.[facility]/service/mental-health Inpatient evaluations conducted in Intake office on the ground floor 8am-4pm [facility] (children, adolescent, adult) http://www.[facility] systemTrueStar [facility].[place]/behavioralhealth [facility] [phone] (Adult only) https://www.[facility]/psychiatry/jhsae-jhdesgywqn-bsfamagi.php [facility] Behavioral Health. [phone] (children, adolescent, adult) http://www.[facility] hospital[facility]ip[facility].[place]/medical-services/behavioral-health documented in this encounter Progress Notes * Agapito Cuenca LCSW - 10/07/2022 10:00 AM CDT Images from the original note were not included. . [facility] [[email or web address]] BEHAVIORAL HEALTH CLINICAL PROGRESS NOTE NAME: Cee March AGE: 26 y.o. DATE OF : 1995 DATE OF SERVICE: 10/07/2022 START TIME: 10:00 am END TIME: 10:45 am DIAGNOSIS: 1. Grief reaction BEHAVIORAL HEALTH REFERRAL 2. MDD (major depressive disorder), recurrent episode, moderate (HCC) BEHAVIORAL HEALTH REFERRAL 3. Anxiety BEHAVIORAL HEALTH REFERRAL TREATMENT PLAN: Goals Addressed This Visit's Progress ??? Behavioral Health (pt-stated) I want to cope better with grief and depression over mom's and other issues Goal/Objective: Decrease grieving. Anticipated Time Frame for Goal Completion: 6 months Goal Reviewed with: patient Readiness to change: Ready to change Department associated with goal: [facility] Steps to achieve [...] aid in managing problematic responses to grief. PROBLEM STATUS: Cee was seen today due to the following concerns: Depression: concentration difficulties decreased motivation decreased participation in activities of daily living feeling of hopelessness withdrawn/isolating grieving Cee returned after an absence. Her mother in a car accident August 23, and she is also now , due in December. She has been under a great deal of stress, along with grieving, plus had complications in her first trimester, so did not want to take an antidepressant medication. Her mother was a drug addict, who was trying to get clean, due to patient's pending daughter, and the rest of her mother's family is very dysfunctional. Her dad in 2019 of cancer. Her 's dadwas also recently diagnosed with cancer. Based upon the presenting problem the following treatment modalities were utilized: Cognitive Behavioral Therapy Supportive/Client Centered Therapy FUNCTIONAL ASSESSMENT: Can the patient perform Activities of Daily Living (ADL'S)?: Patient is able to complete ADL's independently Does patient have the ability and the capacity to respond to treatment?: Yes THERAPEUTIC INTERVENTIONS USED: This clinician provided therapeutic interventions for: Depression: increasing insight into current difficulties identifying and decreasing cognitive distortions/negative automatic thoughts contributing negatively to depressed mood and behavior identifying, verbalizing, and processing feelings effectively increasing daily socialization and engagement in pleasant/pleasurable activities increasing knowledge and awareness of emotions/emotional functioning learning positive coping skills and utilizing them at appropriate times/when needed . Cee verbalized an understanding and responded well to interventions provided during treatment session. PROGRESS TOWARDS GOALS: Cee reported slight improvement of symptoms. MENTAL STATUS EXAM: Cee is: motivated open pleasant. Affect is: appropriate to context. Mood is: congruent to situation. There is: no history of suicidal ideation.. There is: no history of homicidal ideation.. TREATMENT RECOMMENDATIONS/FOLLOW UP: Recommendations for follow up treatment plan: Return for next available follow up appointment Return for follow up in 3 weeks Continue individual therapy as needed for support and guidance. AGAPITO CUENCA LCSW documented in this encounter Plan of Treatment Upcoming Encounters Date Type Department Care Team (Late st Contact Info) Description 08/19/2024 8:45 AM MASTER ELECTRICIAN Office Visit [facility] Medical [facility] [address] [place] [address] Bessy Alcaraz APRN, MOLDING PLASTERER #[address] [address] documented as of this encounter Goals Goal [...] Ready to change Department associated with goal: [facility] Steps to achieve [...] as of this encounter Visit Diagnoses Diagnosis Grief reaction Adjustment disorder with depressed mood MDD (major depressive disorder), recurrent episode, moderate (HCC) Major depressive disorder, recurrent episode, moderate Anxiety Anxiety state, unspecified documented in this encounter Additional Health Concerns Assessment Noted Time PHQ-9 Depression Total Score: 3 09/24/19 23 10:00 AM MASTER ELECTRICIAN documented as of this encounter Care Teams Insurance Plan Specialist Relationship Specialty Start Date End Date Bessy Alcaraz APRN, ARAM #[address] [address] PCP - General Advanced Practice Nurse 10/30/20 Bessy Alcaraz APRN, CNP #[address] [address] Nurse Practitioner Advanced Practice Nurse 10/28/20 documented as of this encounter
--- OUTSIDE RECORDS SUMMARY | 2024-07-28 05:10 | XMS_ITS | Encounter Summary ---
Author Organization [facility] Address [address] [place] [address] Phone Care Team Providers Care Wire Stretcher Name Role Phone Bessy Alcaraz APRN, CNP Unavailable + [phone] Bessy Alcaraz APRN, CNP Primary Care Provid er Molly Costello APRN, CNP Unavailable Reason for Referral * Radiology Services (Routine) - Closed Specialty Diagnoses / Procedures Referred By Edmund abrams Referred To Contact Radiology Diagnoses RUQ pain Procedures US ABDOMEN COMPLETE US ABDOMEN COMPLETE Molly Costello APRN, CNP [address] [place] [address] Phone: tel: fax: Referral ID Status Reason Start Date Expiration Date Visits Re quested Visits Authorized [id number] Closed 10/05/2023 1 1 Reason for Visit * Reason Comments New Patient * Consult, Test & Initiate Treatment (Routine) - Closed Specialty Diagnoses / Procedures Referred By Edmund abrams Referred To Contact Diagnoses Diarrhea, unspecified type Bessy Alcaraz APRN, ARAM [address] [address] Phone: tel: fax: [facility] - Gastroenterology [facility] [address] [place] [address] Phone: tel: fax: Referral ID Status Reason Start Date Expiration Date Visits Re quested Visits Authorized [id number] Closed 09/26/2023 1 1 Encounter Details Date Type Department Care Team (Late st Contact Info) Description 10/05/2023 1:00 PM CDT Office Visit [facility] G[facility]enterology [facility] [address] [place] [address] Molly Costello APRN, NETWORK SECURITY ENGINEER [address] [place] [address] RUQ pain (Primary Dx); Diarrhea, unspecified type; Abdominal cramping Discharge Disposition: Discharged to home or Selfcare Social History Tobacco Use Types Packs/Day Years Used Date Smoking Tobacco: Never Smokeless Tobacco: Never Tobacco Cessation:Counseling Given: Not Answered Alcohol Use Standard Drinks/Week Comments Yes 0 [...] re latives? Once a week 08/29/2023 Attends [employer] Not on file 08/29 Active Member [...] Total Score - Questions 1-9 2 11/2023 [employer] - Occupational Stress [...] Sign Reading Time Taken Comments Blood Pressure 132/82 10/05/2023 1:14 PM CDT Pulse 61 10/05/2023 1:14 PM CDT Temperature 37.1 ??C (98.7 ??F) 10/05/2023 1:14 PM CD T Respiratory Rate 14 10/05/2023 1:14 PM CDT Oxygen Saturation 98% 10/05/2023 1:14 PM CDT Inhaled Oxygen Concentration - - Weight 86.9 kg (191 lb 9.6 oz) 10/05/2023 1:14 P M CDT Height 152.4 cm (5') 10/05/2023 1:14 PM CDT Body Mass Index 37.42 10/05/2023 1:14 PM CDT documented in this encounter Patient Instructions * Patient Instructions* Molly Costello APRN, CNP - 10/05/2023 1:00 PM CDT Stool testing was ordered today. You can brass pickler the collection kit over at the hospital at outpatient registration lab. Ultrasound of the abdomen was also ordered. This can be done at your earliest convenience. In regards of the diarrhea continue to monitor your diet. It might be helpful to keep a food log. You can use [id number] Imodium as needed for the diarrhea. Also consider adding in fiber to your diet to help bulk up stools. As discussed in office in regards to cancer testing you can call your insurance company to see if they will pay for testing for Galicia syndrome. We will plan for follow-up after stool testing has been completed and results have been reviewed and ultrasound has been done as well. * Attachments The following attachments cannot be sent through Care Everywhere. * Diarrhea Adult (Congolese) documented in this encounter Progress Notes * Molly Costello APRN, CNP - 10/05/2023 1:00 PM CDT [facility] - [facility]OLOGY - [place] [address] [facility] [address] Dept: [phone] Dept Loc: [phone] Loc Patient: Cee March : 1995 Sex: female Medical Decision Making: Assessment & Plan Diagnoses and all orders for this visit: RUQ pain - Cancel: US ABDOMEN COMPLETE; Future - US ABDOMEN COMPLETE; Future Diarrhea, unspecified type - GASTROENTEROLOGY REFERRAL - CALPROTECTIN, FECES; Future - CULTURE, STOOL; Future - PANCREATIC ELASTASE, FECES; Future - C. DIFFICILE BY PCR; Future - STOOL, OVA & PARASITES (O&P) Abdominal cramping Here today for diarrhea. Present for a least 9 months. At this time we will get some stool studies done to rule out a bacterial or parasitic cause. Advised to use OTC imodium as needed for the diarrhea and to increase fiber intake in diet or to use a fiber supplement such as metamucil or benefiber. We will also plan on getting an ultrasound of the abdomen. We will wait on any GI procedure at this time as there are no red flags, however these procedures can be considered in the future if needed. Possible causes of the diarrhea include but are not limited to: IBS_D, IBD, GERD, biliary dyskinesia, pancreatic insufficiency, C.diff, bacterial or parasitic infection. Return follow up after stool testing is completed. Subjective Subjective: HPI: Cee March is a 27 y.o. female presents for New Patient Cee is here today as a new patient with referral from her PCP for RUQ pain and diarrhea. History is obtained from the patient and chart review. She reports about a 9 month history of diarrhea, lower abdominal cramping, nausea and sweats. Symptoms come on before and during the BM and resolve after the BM is completed. She reports that the stool is loose and watery (bristol 6- 7). She will a a formed stool on rare occasion, maybe every other week. She describes the stool as greasy in appearance, floats, and will have undigested and partial digested food in it. Has frequent postprandial diarrhea within 1-2 hours after eating. She reports 2past episodes of blood seen wrapped around the stool, with the last episode being about 3 months ago. She had a colonoscopy in 2019 due to IBS-C. Report was reviewed and noted no polyps, normal colonoscopy, small hemorrhoid. She has used OTC imodium for the diarrhea. She reports a history of RUQ pain. She has had this off and on over the years. She states that she had the pain more constant before she became . Pain seemed to resolve during the , but returned after her baby was born. She continue to have the pain intermittently. She will also have heart burn about every other day for which she will use pepcid as needed. She reports colon cancer in a paternal uncle. Her father had crohn's disease and he also passed after having cancer of the head and neck. Other cancers in her family include pancreatic, lung, brain. She has no prior abdominal surgeries. Problem List: Patient Active Problem List Diagnosis MDD (major depressive disorder), recurrent episode, moderate (HCC) Generalized anxiety disorder PTSD (post-traumatic stress disorder) Disordered eating Acute cervicitis Depressive disorder History of iron deficiency anemia Irritable bowel syndrome Past Medical History: Past Medical History Positives Diagnosis Date Abdominal pain Anemia Anxiety and depression Gastritis GERD (gastroesophageal reflux disease) Heart murmur 2019 just found, goes to doctor for this 01/08/19 IBS (irritable bowel syndrome) TMJ (temporomandibular joint syndrome) Past Surgical History: Past Surgical History: Procedure Laterality Date COLONOSCOPY 2017 [place] COLONOSCOPY Left 12/27/2018 Procedure: COLONOSCOPY-HEMORRHOIDS; Surgeon: Scooby Cuellar MD; Location: [facility]; Service: Gastroenterology ORAL SURGERY PROCEDURE Abcess tooth removed and wisdom teeth TONSILLECTOMY Family History: Family History Problem Relation Age of Onset [...] Depression Brother Anxiety disorder Brother Depression Brother Social History: Social History Socioeconomic History Marital status: Highest education level: Associate degree: occupational, technical, or vocational program Tobacco Use Smoking status: Never Smokeless tobacco: Never Vaping Use Vaping Use: Never used Substance and Sexual Activity Alcohol use: Yes Comment: Rarely Drug use: Never Sexual activity: Yes Partners: Male control/protection: I.U.D. Social Determinants of Health Financial Resource Needs: Low Risk (08/29/2023) Overall Financial Resource Strain (CARDIA) Difficulty of Paying Living Expenses: Not very hard Food Insecurity Needs: No Food Insecurity (08/29/2023) Hunger Vital Sign Worried About Running Out of Food in the Last Year: Never true Ran Out of Food in the Last Year: Never true Transportation Needs: No Transportation Needs (08/29/2023) PRAPARE - Transportation Lack of Transportation (Medical): No Lack of Transportation (Non-Medical): No Physical Activity: Unknown (08/29/2023) Exercise Vital Sign Days of Exercise per Week: 3 days Stress: Stress Concern Present (08/29/2023) [employer] [facility] [employer] [facility] - Occupational Stress Questionnaire Feeling of Stress : To some extent Social Integration: Unknown (08/29/2023) Social Connection and Isolation Panel [NHANES] Frequency of Communication with Friends and Family: Twice a week Frequency of Social Gatherings with Friends and Family: Once a week Intimate Partner Violence: Unknown (08/29/2023) Humiliation, Afraid, Rape, and Kick questionnaire Fear of Current or Ex-Partner: No Emotionally Abused: No Housing Stability: Unknown (08/29/2023) Housing Stability Vital Sign Unable to Pay for Housing in the Last Year: No Medications: Current Outpatient Medications: Amphetamine-Dextroamphetamine (Adderall XR) 25 MG CAPSULE SR 24 HR Phentermine HCl 37.5 MG Tablet Allergies: No Known Allergies Review of systems was negative, except as documented in HPI. Objective Objective: BP 132/82 Pulse 61 Temp 98.7 ??F (37.1 ??C) Resp 14 Ht 5' (1.524 m) Wt 191 lb 9.6 oz (86.9 kg) LMP 09/22/2023 (Exact Date) SpO2 98% BMI 37.42 kg/m?? General appearance: alert, no distress, cooperative, appears stated age Lungs: clear to auscultation bilaterally Heart: regular rate and rhythm, S1, S2 normal, no murmur, click, rub or gallop Abdomen: soft, mild epigastric tenderness with palpation, tenderness in left and right lower quadrant. . Bowel sounds normal. No masses, no organomegaly Neurologic: Alert and oriented X 3. Labs: Lab Results Component Value Date WBC 6.66 08/29/2023 HEMOGLOBIN 13.5 08/29/2023 HEMATOCRIT 40.7 08/29/2023 PLATELETCNT 338 08/29/2023 MCV 89.3 08/29/2023 No results found for: INR Lab Results Component Value Date SODIUM 139 08/29/2023 POTASSIUM 3.9 08/29/2023 CHLORIDE 110 (H) 08/29/2023 CO2VEN 21 (L) 08/29/2023 ANIONGAP 11.9 08/29/2023 GLUCOSE 84 08/29/2023 BUN 8 08/29/2023 CREATININE 0.66 08/29/2023 BCRATIO8 12 08/29/2023 TOTALPROTEIN 7.6 08/29/2023 ALBUMIN 4.3 08/29/2023 CALCIUM 8.9 08/29/2023 TBIL 0.2 08/29/2023 SGOTAST 12 08/29/2023 SGPTALT 15 08/29/2023 ALKALINEPHO 105 08/29/2023 GFRNA >60 08/29/2023 GFRA >60 08/29/2023 No results found. Review of diagnostic tests: labs, imaging, prior colonoscopy report Molly Costello APRN, CNP This note was transcribed using [employer] speech recognition software. As a result, there may be unintended grammar and spelling errors. documented in this encounter Plan of Treatment Upcoming Encounters Date Type Department Care Team (Late st Contact Info) Description 08/19/2024 8:45 AM SECURITY BUSINESS ANALYST Office Visit [facility] - Family Medicine [facility] [address] [place] [phone] Bessy Alcaraz APRN, ARAM [address] [phone] Scheduled Orders Name Type Priority Associated Diagnoses Orde r Schedule CALPROTECTIN, FECES Lab Routine Diarrhea, unspecified type Expected: 04/22/2024, Expires: 10/04/2024 CULTURE, STOOL Microbiology Routine Diarrhea, unspecified type Expected: 04/22/2024, Expires: 10/04/2024 PANCREATIC ELASTASE, FECES Lab Routine Diarrhea, unspecified type Expected: 04/22/2024, Expires: 10/04/2024 C. DIFFICILE BY PCR Microbiology Routine Diarrhea, unspecified type Expected: 04/22/2024, Expires: 10/04/2024 STOOL, OVA & PARASITES (O&P) Microbiology Routine Diarrhea, unspecified type Ordered: 10/05/2023 documented as of this encounter Goals Goal Patient Goal Type Associated Problems Recent Progress Patient-Stated? Author Behavioral Health Behavioral Health On track( 023 4:31 PM CDT) Yes Agapito Cuenca, LATEX SPOOLER Note: I want to cope better with grief and depression over mom's and other issues Goal/Objective: Decrease grieving. Anticipated Time Frame for Goal Completion: 6 months Goal Reviewed with: patient Readiness to change: Ready to change Department associated with goal: [facility] Steps to [...] Name Priority Date/Time Associated Diagnosis Comments US ABDOMEN COMPLETE Routine 10/09/2023 1 2:00 AM CDT RUQ pain documented in this encounter Results * US ABDOMEN COMPLETE (10/09/2023 12:00 AM CDT) Anatomical Region Laterality Modality Abdomen N/A Other 10/09/2023 Molly Costello PLASTIC JIG AND FIXTURE BUILDER, NETWORK SECURITY ENGINEER IMG US ORDERABLES Final Result documented in this encounter Visit Diagnoses Diagnosis RUQ pain- Primary Abdominal pain, right upper quadrant Diarrhea, unspecified type Abdominal cramping Abdominal pain, unspecified site documented in this encounter Additional Health Concerns Infection Onset Date Last Indicated Resolved Time C. difficile Rule-Out 10/05/2023 10/05/20232023 12:19 AM CDT Assessment Noted Time PHQ-9 Depression Total Score: 2 09/26/19 1:32 PM SECURITY BUSINESS ANALYST documented as of this encounter Care Teams Wire Stretcher Relationship Specialty Start Date End Date Bessy Alcaraz APRN, ARAM [address] [phone] PCP - General Advanced Practice Nurse 10/30/20 Bessy Alcaraz APRN, NETWORK SECURITY ENGINEER [address] [phone] Nurse Practitioner Advanced Practice Nurse 10/28/20 Molly Costello APRN, NETWORK SECURITY ENGINEER [address] [place] [address] Nurse Practitioner Advanced Practice Nurse 10/05/23 documented as of this encounter
--- OUTSIDE RECORDS SUMMARY | 2024-07-28 05:10 | XMS_ITS | Encounter Summary ---
Author Organization [email or web address] Care Team Providers Care Vehicle Fuel Systems Converter Name Role Phone Bessy Alcaraz APRN, ARAM Unavailable [phone] Bessy Alcaraz APRN, CNP Primary Care Provid er Molly Costello APRN, ARAM Unavailable Encounter Details Date Type Department Care Team (Latest Contact Info) Description 06/03/2024 Travel Social History Tobacco Use Types Packs/Day Years Used Date Smoking Tobacco: Never Smokeless Tobacco: Never Alcohol Use Standard Drinks/Week Comments Yes 0 (1 standard drink = 0.6 oz pur e alcohol) Rarely [facility] Utilities Answer Date Recorded In the past 12 months has [employer] electric, gas, oil, or water company threatened [...] declined 06/03/2024 How often do you attend muslim or worship serv ices? Patient declined 06/03/2024 Do you belong to any clubs o r organizations such as muslim groups, unions, fraternal or athletic groups, or [...] Total Score - Questions 1-9 0 05/24 [facility] [...] No 06/03/2024 Housing Stability Vital Sign Answer Harlye e Recorded In the last 12 months, [...] place to sleep or slept in a usp (including now)? No 11/27/2023 Housing Stability Vital Sign Answer Harley e Recorded In the last 12 months, was t here a time when you were not able to pay the mortgage or rent on time? No 06/03/2024 Number of Times Moved in the Last Year Not on fi le 06/03/2024 At any time in the past 12 m [facility], were you homeless or living in a usp (including now)? No 06/03/2024 Education Answer Date [...] Score Answer Date of Assessment Author 1 06/03/2024 11:13 AM SODA DRY HOUSE OPERATOR [facility], System Background * Within the last year, have you been humiliated or emotionally abused in other ways by your partner or ex-partner? Answer Date of Assessment Author No 06/03/2024 11:13 AM SODA DRY HOUSE OPERATOR [facility], System Background * Within the last year, have you been afraid of your partner or ex-partner? Answer Date of Assessment Author No 06/03/2024 11:13 AM SODA DRY HOUSE OPERATOR [facility], System Background * Within the last year, have you been raped or forced to have any kind of sexual activity by your partner or ex-partner? Answer Date of Assessment Author No 06/03/2024 11:13 AM SODA DRY HOUSE OPERATOR [facility], System Background * Within the last year, have you been kicked, hit, slapped, or otherwise physically hurt by your partner or ex-partner? Answer Date of Assessment Author No 06/03/2024 11:13 AM SODA DRY HOUSE OPERATOR [facility], System Background * Q1: How often do you have a drink containing alcohol? Answer Date of Assessment Author Monthly or less 06/03/2024 11:13 AM SODA DRY HOUSE OPERATOR [facility], System Background * Q2: How many drinks containing alcohol do you have on a typical day when you are drinking? Answer Date of Assessment Author Patient does not drink 06/03/2024 11:13 AM SODA DRY HOUSE OPERATOR Igor thornton, System Background * Q3: How often do you have six or more drinks on one occasion? Answer Date of Assessment Author Never 06/03/2024 11:13 AM SODA DRY HOUSE OPERATOR Leet, System Background documented as of this encounter Plan of Treatment Upcoming Encounters Date Type Department Care Team (Late st Contact Info) Description 08/19/2024 8:45 AM SODA DRY HOUSE OPERATOR Office Visit [facility] - Family [facility] [address] [place] [address] Bessy Alcaraz APRN, UNEMPLOYMENT BENEFITS CLAIMS TAKER [address] [place] [address] documented as of this encounter Goals Goal Patient Goal Type Associated Problems Recent Progress Patient-Stated? Author Behavioral Health Behavioral Health On track( 023 4:31 PM CDT) Yes Agapito Cuenca, WHITE [employer]GAR PAN TANK OPERATOR Note: I want to cope better with grief and depression over mom's and other issues Goal/Objective: Decrease grieving. Anticipated Time Frame for Goal Completion: 6 months Goal Reviewed with: patient Readiness to change: Ready to change Department associated with goal: [facility] Steps to achieve [...] Total Score: 2 09/26/19 24 1:32 PM SODA DRY HOUSE OPERATOR documented as of this encounter Care Teams Vehicle Fuel Systems Converter Relationship Specialty Start Date End Date Bessy Alcaraz APRN, ARAM [address] [facility] [address] [place] [address] PCP - General Advanced Practice Nurse 10/30/20 Bessy Alcaraz APRN, UNEMPLOYMENT BENEFITS CLAIMS TAKER [address] [phone] Nurse Practitioner Advanced Practice Nurse 10/28/20 Molly Costello APRN, UNEMPLOYMENT BENEFITS CLAIMS TAKER [address] [place] [address] Nurse Practitioner Advanced Practice Nurse 10/05/23 documented as of this encounter
--- OUTSIDE RECORDS SUMMARY | 2024-07-28 05:10 | XMS_ITS | Encounter Summary ---
Author Organization [facility] Address [address] [place] [address] Phone Care Team Providers Care Commissioning Agent Name Role Phone Bessy Alcaraz APRN, CNP Unavailable +1- [phone] Bessy Alcaraz APRN, CNP Primary Care Provid er Reason for Visit * Reason Comments Depression * Auth/Cert (Routine) Specialty Diagnoses / Procedures Referred By Edmund abrams Referred To Contact Referral ID Status Reason Start Date Expiration Date Visits Re quested Visits Authorized [id number] 1 1 Encounter Details Date Type Department Care Team (Latest Contact Info) Description 11/28/2022 4:00 PM CDT Outpatient Clinic Visit [facility] [address] [place] [address] Agapito Cuenca, HOSPITALITY ASSOCIATE [address] [place] [address] Grief reaction (Primary Dx); ADHD (attention deficit hyperactivity disorder), combined type; MDD (major depressive disorder), recurrent episode, moderate (HCC) Discharge Disposition: Discharged to home or Selfcare [...] suspected to have Coronavirus/COVID-19? No / Unsure 11/28/2022 9:24 AM CDT documented as of this encounter Patient Instructions * Patient Instructions* Agapito Cuenca, HOSPITALITY ASSOCIATE - 11/28/2022 4:00 PM CDT Images from the original note were not included. Suicide Hotlines - Crisis Intervention 13/[address] [facility] Crisis Intervention Team?[phone] ([facility] Crisis Intervention Team?.. [phone] ([facility] Can be used by individual, PD, Hospitals, family, friend etc. for in-home assessment of concerns for someone's mental health Local Numbers - Behavioral Health Response (BHR)?[phone] / [phone] ([place]) Life Crisis Services?.961-231- GPJM (0722) ([place]) CARES Line (Medicaid patients up to age 21)???[phone] If non-Medicaid patient, still need tocall Cares Line and if screened out will be sent to [facility] or [place] for follow up Crisis Intervention Team National Numbers - National Suicide Prevention Hotline: ?.988 or 9-648-951-TALK (0078) Sexual Assault Hotline?0-533-516-HOPE (6091) Domestic Violence Hotline?.9-876-110-SAFE (4161) [facility] Lifeline? Trans Lifeline?5-690- 765-2504 LGBTQ Partner Abuse & Sexual Assault Line?.1-397.607.3221 Crisis Text Line?Text help to 338104 Warm Lines [place] Warmline?5-752-607-79 53 [facility] Warm[facility]? 9a-9p/7 days a week Compassionate Ear Warmline?..3-810-115-4548 MENTAL HEALTH EMERGENCY- Assessment for Crisis/or/ED's with Inpatient Units Behavioral Health Urgent Care [facility] Behavioral Health Urgent Care [phone] (5yrs old to Adult) [address] [place] [address] Monday - Monday 9:00am - 7:00pm *Last patient seen at 6:00pm Walk-In Crisis or Telehealth for age 18+ Crisis Walk In: Call for Help's Living Room: Monday-Monday 8:30am-5pm [address] [facility], [place] [address] Crisis Telehealth: Monday, Monday, Monday 8:30am-5:00pm and Monday, 12:00pm-8:00pm. Must have good internet connection. To access telehealth go to ???Talk to Someone Now?? or call [phone] ext. 109. No cost and no insurance necessary. Emergency Department diversion program. [facility] (Intake Adult Acute) [phone] [place] [address]. https://[facility]/services/zwixqamppw-smcuyg-xin-wellness [facility] [phone] (Intake Adult 18+-Used by clinician to alert that patient will be coming in through the emergency room) [address] [place] [address] [facility] (13/02 - emergency services for children age 4+, adolescent, adult) [phone] [place] [address]. Adult Inpatient Facility. http://[facility].org/ [facility] Sexual Assault Victims Care Unit. (Children, adolescent, adult) 13/02 crisis intervention: 324.953.6837 Hotline Number and Main Office. Community Stabilization (Homeless adults with Mental Illness) 791.610.2963. http://[facility].org/ [facility] 915-791-0815426.267.4084 (children, adolescent, adult) [address] [place] [address] http://[facility].com/admission-informationfaqs/ [facility] Health [phone] Option #1 (adult) [address] [place] [address] https://www.[facility] hospital[facility]/service/mental-health Inpatient evaluations conducted in Intake office on the ground floor 8am-4pm [facility] (children, adolescent, adult) http://www.[facility].[employer]/behavioralhealth [facility] [phone] (Adult only) https://www.[facility]/psychiatry/abtrz-bcwgrtwoua-eqnjbusx.php [facility] Behavioral Health. [phone] (children, adolescent, adult) http://www.[facility]/medical-services/behavioral-health documented in this encounter Progress Notes * Agapito Cuenca LCSW - 11/28/2022 4:00 PM CDT Images from the original note were not included. [facility] BEHAVIORAL HEALTH CLINICAL PROGRESS NOTE NAME: Cee March AGE: 26 y.o. DATE OF : 1995 DATE OF SERVICE: 11/28/2022 START TIME: 4:00 pm END TIME: 4:45 pm DIAGNOSIS: 1. Grief reaction 2. ADHD (attention deficit hyperactivity disorder), combined type 3. MDD (major depressive disorder), recurrent episode, moderate (HCC) TREATMENT PLAN: Goals Addressed This Visit's Progress ??? Behavioral Health (pt-stated) On track I want to cope better with grief and depression over mom's and other issues Goal/Objective: Decrease grieving. Anticipated Time Frame for Goal Completion: 6 months Goal Reviewed with: patient Readiness to change: Ready to change Department associated with goal: [facility] Steps to achieve goal: [...] decreased participation in activities of daily living emotionality (anger, crying, irritability) fatigue/loss of energy loss of interest/pleasure in activities mood regulation difficulties negative automatic thoughts/intrusive thoughts withdrawn/isolating Cee talked about ongoing depression and is worried that she will have depression, especially as she gets closer to her delivery date. She got put on a antidepressant medication but admits that she is not taking it regularly. Based upon the presenting problem the following [...] contributing negatively to depressed mood and behavior identifying exercise/physical activity to be implemented at home identifying, verbalizing, and processing feelings effectively learning positive coping skills and utilizing them [...] up appointment Return for follow up in 2 weeks Continue individual therapy as needed for support and guidance. AGAPITO CUENCA LCSW documented in this encounter Plan of Treatment Upcoming Encounters Date Type Department Care Team (Late st Contact Info) Description 08/19/2024 8:45 AM DAYTIME CAREGIVER Office Visit [facility] - [facility] [address] [place] [address] Bessy Alcaraz APRN, DRIVER EDUCATION INSTRUCTOR [address] [facility] [place] [address] documented as of this encounter Goals Goal Patient Goal Type Associated Problems Recent Progress Patient-Stated? Author Behavioral Health Behavioral Health On track( 023 4:31 PM CDT) Yes Agapito Cuenca, HOSPITALITY ASSOCIATE Note: I want to cope better with grief and depression over mom's and other issues Goal/Objective: Decrease grieving. Anticipated Time Frame for Goal Completion: 6 months Goal Reviewed with: patient Readiness to change: Ready to change Department associated with goal: [facility] Steps to achieve goal: [...] of this encounter Visit Diagnoses Diagnosis Grief reaction- Primary Adjustment disorder with depressed mood ADHD (attention deficit hyperactivity disorder), combined type Attention deficit disorder with hyperactivity MDD (major depressive disorder), recurrent episode, moderate (HCC) Major depressive disorder, recurrent episode, moderate documented in this encounter Additional Health Concerns Assessment Noted Time PHQ-9 Depression Total Score: 3 09/24/19 23 10:00 AM DAYTIME CAREGIVER documented as of this encounter Care Teams Commissioning Agent Relationship Specialty Start Date End Date Bessy Alcaraz APRN, ARAM [address] [facility] [place] [address] PCP - General Advanced Practice Nurse 4/9/21 Bessy Alcaraz APRN, DRIVER EDUCATION INSTRUCTOR #[address] [address] Nurse Practitioner Advanced Practice Nurse 10/28/20 documented as of this encounter
--- OUTSIDE RECORDS SUMMARY | 2024-07-28 05:10 | XMS_ITS | Encounter Summary ---
Author Organization [facility] Address [address] [place] [address] Phone Care Team Providers Care Creeler Name Role Phone Bessy Alcaraz APRN, CNP Unavailable + [phone] Bessy Alcaraz APRN, CNP Primary Care Provid er Reason for Visit * Reason Comments Immunization/Injection Encounter Details Date Type Department Care Team (Late st Contact Info) Description 05/18/2022 1:20 PM CDT Immunization [facility] - [facility] - [place] [address] [place] [phone] Clinic, [place] Nurse [place] Encounter for immunization (Primary Dx) Discharge Disposition: Discharged to home or Selfcare [...] suspected to have Coronavirus/COVID-19? No / Unsure 05/18/2022 1:18 PM CDT documented as of this encounter Progress Notes * Siomara Munoz, RN - 05/18/2022 1:20 PM CDT Cee is here for Flu immunizations per order of Bessy Lane APRN dated 05/18/22. Vaccine Information Sheet(s) were given on 05/18/22. Verbal consent was obtained. Cee tolerated the immunization well without incident. See Immunization activity for details. documented in this encounter Plan of Treatment Upcoming Encounters Date Type Department Care Team (Late st Contact Info) Description 08/19/2024 8:45 AM PROFESSOR/NURSE ANESTHETIST Office Visit [facility] - [place] [address] [place] [address] Bessy Alcaraz APRN, ELECTRONIC EQUIPMENT MAINT TECH #[address] [address] documented as of this encounter Visit Diagnoses Diagnosis Encounter for immunization- Primary Need for other specified prophylactic vaccination against single bacterial disease documented in this encounter Additional Health Concerns Assessment Noted Time PHQ-9 Depression Total Score: 11 022 4:00 PM CDT documented as of this encounter Care Teams Creeler Relationship Specialty Start Date End Date Bessy Alcaraz APRN, CNP #[address] [address] PCP - General Advanced Practice Nurse 10/30/20 Bessy Alcaraz APRN, CNP #[address] [address] Nurse Practitioner Advanced Practice Nurse 10/28/20 documented as of this encounter
--- OUTSIDE RECORDS SUMMARY | 2024-07-28 05:10 | XMS_ITS | Encounter Summary ---
Author Organization [facility] Address [address] [place] [address] Phone Care Team Providers Care Loan Examiner Name Role Phone Bessy Alcaraz APRN, ARAM Unavailable + [phone] Bessy Alcaraz APRN, ARAM Primary Care Provid er Molly Costello APRN, TANK ERECTOR Unavailable Encounter Details Date Type Department Care Team (Late st Contact Info) Description 06/06/2024 Telephone [facility] Medicine - [place] [address] [place] [address] Tristian Bella MD #[address] [address] Social History Tobacco Use Types Packs/Day Years Used Date Smoking Tobacco: Never Smokeless Tobacco: Never Alcohol Use Standard Drinks/Week Comments Yes 0 (1 standard drink = 0.6 oz pur e alcohol) Rarely C Utilities Answer Date Recorded In the past 12 months has [employer] electric, gas, oil, or water company threatened [...] declined 06/03/2024 How often do you attend confucianism or sikhism serv ices? Patient declined 06/03/2024 Do you belong to any clubs o r organizations such as confucianism groups, unions, fraternal or athletic groups, or [...] Questions 1-9 0 05/24 [facility] of Occupat ional [facility] - Occupational Stress Questionnaire Answer Date [...] place to sleep or slept in a fci (including now)? No 11/27/2023 Housing Stability Vital [...] were you homeless or living in a fci (including now)? No 06/03/2024 Education Answer Date [...] Telephone Encounter - Tristian Bella MD - 06/06/2024 7:38 AM CST dc H BOLT BANDER documented in this encounter Plan of Treatment Upcoming Encounters Date Type Department Care Team (Late st Contact Info) Description 08/19/2024 8:45 AM CLOTH BOLT BANDER Office Visit [facility] - [facility] Medicine [place] [address] [place] [address] Bessy Alcaraz APRN, TANK ERECTOR [address] [phone] documented as of this encounter Goals Goal Patient Goal Type Associated Problems Recent Progress Patient-Stated? Author Behavioral Health Behavioral Health On track( 023 4:31 PM CDT) Yes Agapito Cuenca, SWITCH MAKER Note: I want to cope better with grief and depression over mom's and other issues Goal/Objective: Decrease grieving. Anticipated Time Frame for Goal Completion: 6 months Goal Reviewed with: patient Readiness to change: Ready to change Department associated with goal[facility] Steps to [...] Total Score: 0 06/04/20 24 7:38 AM CLOTH BOLT BANDER documented as of this encounter Care Teams Loan Examiner Relationship Specialty Start Date End Date Bessy Alcaraz APRN, ARAM #[address] [address] PCP - General Advanced Practice Nurse 10/30/20 Bessy Alcaraz APRN, ARAM #[address] [address] Nurse Practitioner Advanced Practice Nurse 10/28/20 Molly Costello APRN, ARAM [address] [place] [address] Nurse Practitioner Advanced Practice Nurse 10/05/23 documented as of this encounter
--- OUTSIDE RECORDS SUMMARY | 2024-07-28 05:10 | XMS_ITS | Encounter Summary ---
Author Organization [facility] [employer] Care Team Providers Care Smoking Pipe Liner Name Role Phone Bessy Alcaraz APRN, CNP Unavailable +1- [phone] Bessy Alcaraz APRN, CNP Primary Care Provid er Encounter Details Date Type Department Care Team (Latest Contact Info) Description 10/24/2022 Travel Social History Tobacco Use Types Packs/Day [...] suspected to have Coronavirus/COVID-19? No / Unsure 10/24/2022 10:57 AM CDT documented as of this encounter Plan of Treatment Upcoming Encounters Date Type Department Care Team (Late st Contact Info) Description 08/19/2024 8:45 AM CNA Office Visit [facility] - [facility] [address] [place] [address] Bessy Alcaraz APRN, CNP [address] [facility] [place] [address] documented as of this encounter Goals Goal Patient Goal Type Associated Problems Recent Progress Patient-Stated? Author Behavioral Health Behavioral Health On track( 023 4:31 PM CDT) Yes Agapito Cuenca, PEDIATRIC ALLERGIST Note: I want to cope better with grief and depression over mom's and other issues Goal/Objective: Decrease grieving. Anticipated Time Frame for Goal Completion: 6 months Goal Reviewed with: patient Readiness to change: Ready to change Department associated with goal: [facility] Steps to achieve goal: [...] Total Score: 3 09/24/19 23 10:00 AM CNA documented as of this encounter Care Teams Smoking Pipe Liner Relationship Specialty Start Date End Date Bessy Alcaraz APRN, ARAM #[address] [address] PCP - General Advanced Practice Nurse 10/30/20 Bessy Alcaraz APRN, ARAM #[address] [address] Nurse Practitioner Advanced Practice Nurse 10/28/20 documented as of this encounter
--- OUTSIDE RECORDS SUMMARY | 2024-07-28 05:10 | XMS_ITS | Encounter Summary ---
Author Organization [facility] Address [address] [place] [address] Phone Care Team Providers Care Mechanism Assembler Name Role Phone Bessy Alcaraz APRN, CNP Unavailable + [phone] Bessy Alcaraz APRN, CNP Primary Care Provid er Reason for Visit * Reason Onset Date Comments Advice Only 05/03/2022 Encounter Details Date Type Department Care Team (Late st Contact Info) Description 05/03/2022 Telephone [facility] [address] [place] [address] Bessy Alcaraz APRN, CNP #[address] [address] Advice Only Social History Tobacco Use Types Packs/Day Years [...] encounter Miscellaneous Notes * Telephone Encounter - Sheri France RN - 05/04/2022 12:14 PM CDT Patient returning call, advised of providers recommendations below, patient verbalizes understanding. * Telephone Encounter - Alexia Gunter RN - 05/04/2022 12:13 PM CDT LVM for patient, Sent message to patient through my chart. * Telephone Encounter - Bessy Alcaraz APRN, CNP - 05/03/2022 9:56 PM CDT Yes stop Straterra and ok to continue PT. * Telephone Encounter - Ifeoma June RN - 05/03/2022 8:54 AM CDT Patient states she is 4 weeks . Patient asking if PCP recommends she stop taking Straterra. Can she continue physical therapy for her back? Please advise. documented in this encounter Plan of Treatment Upcoming Encounters Date Type Department Care Team (Late st Contact Info) Description 08/19/2024 8:45 AM CERTIFIED MEDICATION TECHNICIAN Office Visit [facility] [address] [place] [address] Bessy Alcaraz APRN, CARD PUNCHER #[address] [address] documented as of this encounter Visit Diagnoses Not on filedocumented in this encounter Additional Health Concerns Assessment Noted Time PHQ-9 Depression Total Score: 11 10/26/ 022 4:00 PM CDT documented as of this encounter Care Teams Mechanism Assembler Relationship Specialty Start Date End Date Bessy Alcaraz APRN, ARAM #[address] [phone] PCP - General Advanced Practice Nurse 10/30/20 Bessy Alcaraz APRN, ARAM #[address] [address] Nurse Practitioner Advanced Practice Nurse 10/28/20 documented as of this encounter
--- OUTSIDE RECORDS SUMMARY | 2024-07-28 05:10 | XMS_ITS | Encounter Summary ---
Author Organization [facility] Address [address] [place] [address] Phone Care Team Providers Care Sampling Theory Teacher Name Role Phone Bessy Alcaraz APRN, CNP Unavailable + [phone] Bessy Alcaraz APRN, CNP Primary Care Provid er Encounter Details Date Type Department Care Team (Late st Contact Info) Description 02/22/2023 Telephone [facility] Medicine - [place] [address] [place] [address] Bessy Alcaraz APRN, CNP #[address] [address] Social History Tobacco Use Types Packs/Day Years [...] suspected to have Coronavirus/COVID-19? No / Unsure 02/16/2023 3:17 PM CDT documented as of this encounter Miscellaneous Notes * Telephone Encounter - Sheri Salmon - 02/22/2023 2:20 PM CDT error documented in this encounter Plan of Treatment Upcoming Encounters Date Type Department Care Team (Late st Contact Info) Description 08/19/2024 8:45 AM WAFER BATTER MIXER Office Visit [facility] - Family Medicine - [place] [address] [place] [address] Bessy Alcaraz APRN, SERVICE AGENT #[address] [address] documented as of this encounter Goals Goal Patient Goal Type Associated Problems Recent Progress Patient-Stated? Author Behavioral Health Behavioral Health On track( 023 4:31 PM CDT) Yes Agapito Cuenca, CHIEF METER READER Note: I want to cope better with grief and depression over mom's and other issues Goal/Objective: Decrease grieving. Anticipated Time Frame for Goal Completion: 6 months Goal Reviewed with: patient Readiness to change: Ready to change Department associated with goal: [facility] Steps to achieve goal: [...] Total Score: 3 09/24/19 23 10:00 AM WAFER BATTER MIXER documented as of this encounter Care Teams Sampling Theory Teacher Relationship Specialty Start Date End Date [place], Bessy, BUSINESS ADMINISTRATION TEACHER, ARAM #[address] [address] PCP - General Advanced Practice Nurse 10/30/20 Bessy Alcaraz APRN, CNP #[address] [phone] Nurse Practitioner Advanced Practice Nurse 10/28/20 documented as of this encounter
--- OUTSIDE RECORDS SUMMARY | 2024-07-28 05:10 | XMS_ITS | Encounter Summary ---
Author Organization [facility] Address [address] [place] [address] Phone Care Team Providers Care Aircraft Part Assembler Name Role Phone Bessy Alcaraz APRN, CNP Unavailable +1- [phone] Bessy Alcaraz APRN, CNP Primary Care Provid er Reason for Referral * Consult, Test & Initiate Treatment (Routine) - Closed Specialty Diagnoses / Procedures Referred By Edmund abrams Referred To Contact Diagnoses Diarrhea, unspecified type Bessy Alcaraz APRN, CNP [address] [address] Phone: tel: fax: [facility] - G[facility]ology - [place] [address]2 [place] [address] Phone: tel: fax: Referral ID Status Reason Start Date Expiration Date Visits Re quested Visits Authorized [id number] Closed 09/26/2023 1 1 Scheduling Instructions Cee is being referred for diarrhea and abdominal pain. Please contact patient for scheduling questions or concerns. TRUCTION REPRESENTATIVE Reason for Visit * Reason Comments Medication Management She is here for a 4 week follow up to new dosage on medication. She says she is doing good with the new dosage. Encounter Details Date Type Department Care Team (Late st Contact Info) Description 09/26/2023 1:45 PM CONSTRUCTION REPRESENTATIVE [facility] [address] [place] [address] Bessy Alcaraz APRN, GRAVEL HAULER [address] [address] Diarrhea, unspecified type (Primary Dx); BMI 38.0-38.9,adult; Attention deficit hyperactivity disorder (ADHD), combined type Discharge Disposition: Discharged to home or Selfcare Social History Tobacco Use Types Packs/Day Years Used Date Smoking Tobacco: Never Smokeless Tobacco: Never Tobacco Cessation:Counseling Given: Yes Alcohol Use Standard Drinks/Week Comments Yes 0 (1 standard drink = 0.6 oz pur e alcohol) Rarely [facility] Utilities Answer Date Recorded In the [...] re latives? Once a week 08/29/2023 Attends [employer] Not on file 08/29 Active Member [...] Total Score - Questions 1-9 2 11/2023 [facility] Occupat ional Health - Occupational Stress [...] Sign Reading Time Taken Comments Blood Pressure 114/68 09/26/2023 1:36 PM CONSTRUCTION REPRESENTATIVE Pulse 69 09/26/2023 1:36 PM CONSTRUCTION REPRESENTATIVE Temperature 36.4 ??C (97.6 ??F) 09/26/2023 1:36 PM CS T Respiratory Rate 14 09/26/2023 1:36 PM CONSTRUCTION REPRESENTATIVE Oxygen Saturation 99% 09/26/2023 1:36 PM CONSTRUCTION REPRESENTATIVE Inhaled Oxygen Concentration - - Weight 89 kg (196 lb 4.8 oz) 09/26/2023 1:36 PM CONSTRUCTION REPRESENTATIVE Height 152.4 cm (5') 09/26/2023 1:36 PM CONSTRUCTION REPRESENTATIVE Body Mass Index 38.34 09/26/2023 1:36 PM CONSTRUCTION REPRESENTATIVE documented in this encounter Functional Status * Question Answer Date of Assessment Author Little interest or pleasure in doing things Not at all 09/26/2023 1:32 PM CONSTRUCTION REPRESENTATIVE Aida Daigle Feeling down, depressed, or hopeless Not at all 09/26/2023 1:32 PM CONSTRUCTION REPRESENTATIVE Aida Daigle * Over the past 2 weeks, how often have you been bothered by any of the following problems? Question Answer Date of Assessment Author Patient Health Questionnaire-2 Score 0 11/2023 1:32 PM CONSTRUCTION REPRESENTATIVE Aida Daigle documented as of this encounter Progress Notes * Aida Daigle - 09/26/2023 1:45 PM CST Cee March, 27 y.o., female is here for Medication Management (She is here for a 4 week follow up to new dosage on medication. She says she is doing good with the new dosage.) Medication Refills: Patient reports/denies need for medication refills. Orders Pended: no Requested Prescriptions No prescriptions requested or ordered in this encounter Home Medications Medication Sig Start Date End Date Taking? Authorizing Provider amoxicillin (AMOXIL) 875 MG Tablet TAKE 1 TABLET BY MOUTH TWICE DAILY FOR 7 DAYS Patient not taking: Reported on 08/29/2023 07/24/23 Raymundo Luong MD Amphetamine-Dextroamphetamine (Adderall XR) 25 MG CAPSULE SR 24 HR Take 1 Capsule by mouth every morning. 08/29/23 Yes Bessy Alcaraz APRN, CNP sertraline (ZOLOFT) 100 MG Tablet Take 100 mg by mouth daily. Patient not taking: Reported on 06/13/2023 Raymundo Luong MD Vyvanse 30 MG Capsule Take 1 Capsule by mouth daily. 06/14/23 Bessy Alcaraz APRN, ARAM There are no discontinued medications. I have [...] have been addressed with the patient today: Mammogram, Pap, Smoking, Depression, Fall Risk, Nutrition, Advanced Care Planning, and HCC TRUCTION REPRESENTATIVE * Bessy Alcaraz APRN, CNP - 09/26/2023 1:45 PM CST [facility] [place] [address] [facility] [address] Dept: [phone] Dept Loc: [phone] Loc Patient: Cee March : 1995 Sex: female Subjective Subjective: HPI: Cee March presents for Medication Management (She is here for a 4 week follow up to new dosage on medication. She says she is doing good with the new dosage.) . Pateint presents today for ADHD medication follow up. She reports the dose that she is on has been working well for her. She is having some insomnia if she takes it later. Otherwise she denies side effects. She only takes at work and works 3 days a week. Patient also reports she is having GI issues. She reports prior to her she has IBS-C. Shestates that during her she developed diarrhea. She reports she will have abdominal pain that is in her lower abdomen and RUQ. She also has fecal urgency. She reports bristol type 6-7. Normal colonoscopy in 2018. She had a normal hida scan in 2021. Patient is frustrated by her lack of weight loss. She is done well on phentermine in the past wouldlike to return back on this for 3 months. She is tried dieting and exercising without improvement. Denies side effects in the past. Past Medical History Positives Diagnosis Date Abdominal pain Anemia Anxiety and depression Gastritis GERD (gastroesophageal reflux disease) Heart murmur 2018 just found, goes to doctor for this 01/08/19 IBS (irritable bowel syndrome) TMJ (temporomandibular joint syndrome) Current Outpatient Medications on File Prior to Visit Medication Sig Dispense Refill [DISCONTINUED] Vyvanse 30 MG Capsule Take 1 Capsule by mouth daily. 14 Capsule 0 No current facility-administered medications on file prior to visit. No Known Allergies Past Surgical History: Procedure Laterality Date COLONOSCOPY 2017 [place] COLONOSCOPY Left 12/27/2018 Procedure: COLONOSCOPY-HEMORRHOIDS; Surgeon: Scooby Cuellar MD; Location: [facility]; Service: Gastroenterology ORAL SURGERY PROCEDURE Abcess tooth removed and wisdom teeth TONSILLECTOMY Review of Systems Constitutional: Negative for activity change, appetite change, chills, diaphoresis, fatigue and fever. Respiratory: Negative for cough, shortness of breath and wheezing. Cardiovascular: Negative for chest pain and palpitations. Gastrointestinal: Positive for abdominal pain, diarrhea and nausea. Negative for abdominal distention, anal bleeding, blood in stool, constipation, rectal pain and vomiting. Genitourinary: Negative for difficulty urinating, dysuria, flank pain, frequency and urgency. Psychiatric/Behavioral: Positive for decreased concentration. Negative for agitation, dysphoric mood, self-injury and sleep disturbance. The patient is not nervous/anxious. Objective Objective: BP 114/68 (BP Location: Left Arm, BP Position: Sitting, BP Cuff Size: Regular) Pulse 69 Temp 97.6 ??F (36.4 ??C) (Temporal) Resp 14 Ht 5' (1.524 m) Wt 196 lb 4.8 oz (89 kg) LMP 09/22/2023(Exact Date) SpO2 99% BMI 38.34 kg/m?? Physical Exam Vitals and nursing note reviewed. Constitutional: General: She is not in acute distress. Appearance: Normal appearance. She is well-developed. She is obese. She is not diaphoretic. HENT: Head: Normocephalic and atraumatic. Right Ear: External ear normal. Left Ear: External ear normal. Eyes: Pupils: Pupils are equal, round, and reactive to light. Neck: Trachea: No tracheal deviation. Cardiovascular: Rate and [...] of motion. Skin: General: Skin is dry. Neurological: General: No focal deficit present. Mental Status: She is alert and oriented to person, place, and time. Mental status is at baseline. Psychiatric: Mood and Affect: Mood normal. Behavior: Behavior normal. Thought Content: Thought content normal. Judgment: Judgment normal. Medical Decision Making: Assessment & Plan Diagnoses and all orders for this visit: Diarrhea, unspecified type - GASTROENTEROLOGY REFERRAL; Future BMI 38.0-38.9,adult - Phentermine HCl 37.5 MG Tablet; Take 1 Tablet by mouth every morning (before breakfast). Attention deficit hyperactivity disorder (ADHD), combined type - Amphetamine-Dextroamphetamine (Adderall XR) 25 MG CAPSULE SR 24 HR; Take 1 Capsule by mouth everymorning. Patient is frustrated with lack of weight loss. She did well on phentermine in the past. Discussed she can not take the Adderall or the phentermine at the same time. She only takes the Adderall when she works reports she will take the phentermine on days she has not working. She does understand theside effects. Referral placed for gastroenterology due to new onset of diarrhea and abdominal pain.Follow-up in 3 months. Return in about 3 months (around 12/27/2023). TRUCTION REPRESENTATIVE documented in this encounter Plan of Treatment Upcoming Encounters Date Type Department Care Team (Late st Contact Info) Description 08/19/2024 8:45 AM CONSTRUCTION REPRESENTATIVE Office Visit [facility] - Family [facility] [address] [place] [phone] Bessy Alcaraz APRN, ARAM [address] [phone] Scheduled Referrals Name Type Priority Associated Diagnoses Order Schedule GASTROENTEROLOGY REFERRAL Outpatient Referral Routine Diarrhea, unspecified type Expected: 09/26/2023, Expires: 09/25/2024 documented as of this encounter Goals Goal Patient Goal Type Associated Problems Recent Progress Patient-Stated? Author Behavioral Health Behavioral Health On track( 023 4:31 PM CDT) Yes Agapito Cuenca, AIR ANALYSIS ENGINEERING TECHNICIAN Note: I want to cope better with grief and depression over mom's and other issues Goal/Objective: Decrease grieving. Anticipated Time Frame for Goal Completion: 6 months Goal Reviewed with: patient Readiness to change: Ready to change Department associated with goal: [facility] Steps to [...] as of this encounter Visit Diagnoses Diagnosis Diarrhea, unspecified type- Primary BMI 38.0-38.9,adult Body Mass Index 38.0-38.9, adult Attention deficit hyperactivity disorder (ADHD), combined type documented in this encounter Additional Health Concerns Assessment Noted Time PHQ-9 Depression Total Score: 2 09/26/19 24 1:32 PM CONSTRUCTION REPRESENTATIVE documented as of this encounter Care Teams Aircraft Part Assembler Relationship Specialty Start Date End Date Bessy Alcaraz APRN, CNP #[address] [phone] PCP - General Advanced Practice Nurse 10/30/20 Bessy Alcaraz APRN, CNP #[address] [phone] Nurse Practitioner Advanced Practice Nurse 10/28/20 documented as of this encounter
--- OUTSIDE RECORDS SUMMARY | 2024-07-28 05:10 | XMS_ITS | Encounter Summary ---
Author Organization [employer] Care Team Providers Care Early Education Teacher Name Role Phone Bessy Alcaraz APRN, ARAM Unavailable +1- [phone] Bessy Alcaraz APRN, CNP Primary Care Provid er Encounter Details Date Type Department Care Team (Latest Contact Info) Description 02/16/2023 Travel Social History Tobacco Use Types Packs/Day [...] st Contact Info) Description 08/19/2024 8:45 AM ANESTHESIOLOGIST PHYSICIAN Office Visit [facility] [address] [place] [address] Bessy Alcaraz APRN, ARAM [address] [address] documented as of this encounter Goals Goal Patient Goal Type Associated Problems Recent Progress Patient-Stated? Author Behavioral Health Behavioral Health On track( 023 4:31 PM CDT) Yes Agapito Cuenca, REFRIGERATION INSTALLER Note: I want to cope better with grief and depression over mom's and other issues Goal/Objective: Decrease grieving. Anticipated Time Frame for Goal Completion: 6 months Goal Reviewed with: patient Readiness to change: Ready to change Department associated with goal: [facility] Steps to achieve [...] Total Score: 3 09/24/19 23 10:00 AM ANESTHESIOLOGIST PHYSICIAN documented as of this encounter Care Teams Early Education Teacher Relationship Specialty Start Date End Date Bessy Alcaraz APRN, ARAM #[address] [phone] PCP - General Advanced Practice Nurse 10/30/20 Bessy Alcaraz APRN, ARAM #[address] [phone] Nurse Practitioner Advanced Practice Nurse 10/28/20 documented as of this encounter
--- OUTSIDE RECORDS SUMMARY | 2024-07-28 05:10 | XMS_ITS | Encounter Summary ---
Author Organization [facility] Address [address] [place] [address] Phone Care Team Providers Care Barrel Dedenting Machine Operator Name Role Phone Bessy Alcaraz APRN, CNP Unavailable + [phone] Bessy Alcaraz APRN, CNP Primary Care Provid er Molly Costello APRN, CNP Unavailable Reason for Visit * Reason Onset Date Comments Results 10/12/2023 Encounter Details Date Type Department Care Team (Late st Contact Info) Description 10/12/2023 Telephone [facility] - [place] [address] [place] [address] Molly Costello APRN, ARAM [address] [place] [address] Results Social History Tobacco Use Types Packs/Day Years Used Date Smoking Tobacco: Never Smokeless Tobacco: Never Alcohol Use Standard Drinks/Week Comments Yes 0 (1 standard drink = 0.6 oz pur e alcohol) Rarely [facility] Utilities Answer Date Recorded In the past 12 months has [employer], gas, oil, or water [place] threatened to shut off services in your home? Patient declined 08/29/2023 Social Connection and Isolation Panel [NHANES] A nswer Date Recorded In a typical week, how many times do you talk on the phone with family, friends, or neighbors? Twice a week 08/29/2023 How often do you get together with friends or re latives? Once a week 08/29/2023 Attends [employer] Not on file 08/29 Active Member [...] Total Score - Questions 1-9 2 11/2023 [facility] - Occupational [...] encounter Miscellaneous Notes * Telephone Encounter - Kia Sanchez RN - 10/12/2023 10:33 AM CDT [employer] message sent to patient. * Telephone Encounter - Kia Sanchez RN - 10/12/2023 10:32 AM CDT ----- Message from Molly Costello APRN, CNP sent at 10/11/2023 7:43 AM CDT ----- Ultrasound report was reviewed. No abnormal findings. documented in this encounter Plan of Treatment Upcoming Encounters Date Type Department Care Team (Late st Contact Info) Description 08/19/2024 8:45 AM RESIDENT SERVICES MANAGER Office Visit [facility] - Family Medicine - [place] [address] [place] [phone] Bessy Alcaraz APRN, ARAM #[address] [phone] documented as of this encounter Goals Goal Patient Goal Type Associated Problems Recent Progress Patient-Stated? Author Behavioral Health Behavioral Health On track( 023 4:31 PM CDT) Yes Agapito Cuenca, DIRECTOR OF SALES SUPPORT Note: I want to cope better with grief and depression over mom's and other issues Goal/Objective: Decrease grieving. Anticipated Time Frame for Goal Completion: 6 months Goal Reviewed with: patient Readiness to change: Ready to change Department associated with goal[facility] Steps to achieve [...] Total Score: 2 09/26/19 24 1:32 PM RESIDENT SERVICES MANAGER documented as of this encounter Care Teams Barrel Dedenting Machine Operator Relationship Specialty Start Date End Date Bessy Alcaraz APRN, ARAM #[address] [address] PCP - General Advanced Practice Nurse 10/30/20 Bessy Alcaraz APRN, ARAM #[address] [address] Nurse Practitioner Advanced Practice Nurse 10/28/20 Molly Costello APRN, ARAM [address] [place] [address] Nurse Practitioner Advanced Practice Nurse 10/05/23 documented as of this encounter
--- OUTSIDE RECORDS SUMMARY | 2024-07-28 05:10 | XMS_ITS | Encounter Summary ---
Author Organization [facility] Address [address] [place] [address] Phone Care Team Providers Care Scalp Treatment Specialist Name Role Phone Bessy Alcaraz APRN, CNP Unavailable + [phone] Bessy Alcaraz APRN, CNP Primary Care Provid er Encounter Details Date Type Department Care Team (Late st Contact Info) Description 04/26/2022 11:30 AM CDT Physical Therapy [facility] [address] [facility], [facility] [address] [place] [address] Bessy Alcaraz APRN, CNP #2 [facility] [address] [place] [address] Annmarie Alves, [place] Discharge Disposition: Discharged to home or Selfcare [...] as of this encounter Miscellaneous Notes * Plan of Care - Annmarie Alves PTA - 04/26/2022 11:30 AM CDT Treatment Note - Electronically signed by: ANNMARIE ALVES PTA April 26, 2022 SUBJECTIVE: Pt reports she had no pain Avery night after leaving therapy but felt a little stiff. Pt states hehelped someone move and was aware of her body mechinics. Pt states she could tell a difference whenshe used proper mechanics. Objective TREATMENT: Refer to PT OP Rehab Therapy Treatment flowsheet for details/minutes. Home Exercises distributed via handout and text. [employer] information: Access Code: [email or web address] URL: [email or web address] Date: 04/19/2022 Prepared by: Annmarie Alves Exercises Hamstring Stretch in Doorway - 1 x daily - 7 x weekly - 3 reps - 1 sets - 60 seconds hold Supine Transversus Abdominis Bracing - Hands on Ground - 1 x daily - 7 x weekly - 3 sets - 10 reps Hooklying Isometric Clamshell - 1 x daily - 7 x weekly - 15 reps - 2 sets Clam with Resistance - 1 x daily - 7 x weekly - 3 sets - 10 reps Bridge - 1 x daily - 7 x weekly - 2 sets - 15 reps Manual therapy to lumbar regions and glutes with the pt in prone. Muscle restrictions noted and released Low back taping: Patient received taping to low back with 2 stabilizing strips running from bilateral SI joints to the lower ribcage and 1 decompression strip across the spine at the most painful area of the low back. Tape was applied with patient flexed forward on their elbows utilizing mat in standing. Patient response to new home exercises provided today: no increase in pain Interventions provided this session: therex and manual therapy Therapist provided Education and Skilled therapy by instructed pt in exercises and corrected form when needed.. ASSESSMENT: Other Details: Patient demonstrates progress as evidenced by having an overall decrease in pain with activities. Pt was able to perform exercises with improved form and displayed less pain after manual therapy.. Patient would benefit from continued skilled interventions, as stated in the plan of care, due to the following functional limitations: Decreased tolerance for walking , lifting, working. All charges entered today are appropriate and separate from each other. PLAN Goals to be achieved by discharge. 20 v Patient will demonstrate the followin- Report that the pain is rarely > than 3 so that patient can walk for more that 1/2 mile with greater ease. 2- Understanding of and ability to demonstrate safe body mechanics with lifting so that she can lift objects at home and at work without increasing her pain. 3- Increase hamstring length to -15 B to allow walking with greater ease. 4- Increase bilateral hip gluteus medius strength to 4+/5 to get up out of a chair with less pain or difficulty. 5- Improve lumbar spine extension range of motion to full and pain free to be able to walk with greater ease. 6- Demonstrates independence in therapeutic exercise program specific to relative impairments in order to optimize rehabilitation. 7- Improve score on the Oswestry Low Back Disability Questionnaire to 15% impairment or less to demonstrate overall improved function. Planned Interventions This patient will likely be seen 2 x/week for 20 visits from the date of initial evaluation for thefollowing interventions: - Manual techniques including joint mobilizations, MFR, soft tissue massage, IASTM and others as needed for pain relief, soft tissue extensibility and joint mobility (97902) - Therapeutic exercise program for: motion/mobility, strengthening, flexibility, and functional limitations (10227) - Therapeutic activities for functional activity education/training, and in home safety recommendations as appropriate (48267) - Neuro Muscular Re-education for body mechanics education and postural re- education as appropriate(31545) - Patient education regarding posture, ergonomics, body mechanics, HEP progression and exercise performance - Individualized home exercise program - Modalities as needed for pain relief, anti-inflammatory effect and soft tissue extensibility - Mechanical traction (09505) - Trigger point dry needling for pain relief and reducing tension in associated musculature (49682 or [address]4733) Precautions: No specific precautions Treatment may be altered based on patient progression and symptoms. The plan of care, as well as the benefits and risks of therapy were reviewed with the patient and the patient consented to treatment.. documented in this encounter Plan of Treatment Upcoming Encounters Date Type Department Care Team (Late st Contact Info) Description 08/19/2024 8:45 AM SHELTERED WORKSHOP EXECUTIVE DIRECTOR Office Visit [facility] - Family Medicine [facility] #2 [place] [address] Bsesy Alcaraz APRN, ARAM [address] [address] documented as of this encounter Visit Diagnoses Not on filedocumented in this encounter Additional Health Concerns Assessment Noted Time PHQ-9 Depression Total Score: 11 10/26/ 022 4:00 PM CDT documented as of this encounter Care Teams Scalp Treatment Specialist Relationship Specialty Start Date End Date Bessy Alcaraz APRN, ARAM [address] [address] PCP - General Advanced Practice Nurse 10/30/20 Bessy Alcaraz APRN, CNP [address] [address] Nurse Practitioner Advanced Practice Nurse 10/28/20 documented as of this encounter
--- OUTSIDE RECORDS SUMMARY | 2024-07-28 05:10 | XMS_ITS | Encounter Summary ---
Author Organization [facility] [employer] Care Team Providers Care Chip Loft Worker Name Role Phone Bessy Alcaraz APRN, CNP Unavailable +- [phone] Bessy Alcaraz APRN, CNP Primary Care Provid er Encounter Details Date Type Department Care Team (Latest Contact Info) Description 05/03/2022 Travel Social History Tobacco Use Types Packs/Day Years Used Date Smoking Tobacco: Never Smokeless Tobacco: Never Alcohol Use Standard Drinks/Week Comments Yes 0 (1 standard drink = 0.6 oz pur e alcohol) Rarely PHQ-2 Answer Date Recorded Total Score - Questions 1-9 11 /0 11/2021 Education Answer Date Recorded What is [...] st Contact Info) Description 08/19/2024 8:45 AM OFFSET ASSISTANT PRESS OPERATOR Office Visit [facility] - Family [facility] #2 [place] [address] Bessy Alcaraz APRN, CNP #[address] [address] documented as of this encounter Visit Diagnoses Not on filedocumented in this encounter Additional Health Concerns Assessment Noted Time PHQ-9 Depression Total Score: 11 10/26/ 022 4:00 PM CDT documented as of this encounter Care Teams Chip Loft Worker Relationship Specialty Start Date End Date Bessy Alcaraz APRN, ARAM #[address] [address] PCP - General Advanced Practice Nurse 10/30/20 Bessy Alcaraz APRN, ARAM #[address] [address] Nurse Practitioner Advanced Practice Nurse 10/28/20 documented as of this encounter
--- OUTSIDE RECORDS SUMMARY | 2024-07-28 05:10 | XMS_ITS | Encounter Summary ---
Author Organization [facility] Address [address] [place] [address] Phone Care Team Providers Care Groundsman Name Role Phone Bessy Alcaraz APRN, CNP Unavailable + [phone] Bessy Alcaraz APRN, CNP Primary Care Provid er Encounter Details Date Type Department Care Team (Late st Contact Info) Description 05/03/2022 10:00 AM CDT Physical Therapy [facility] at [facility] [address] [facility], [facility] [address] [place] [address] Bessy Alcaraz APRN, CNP #[address] [facility] [address] [place] [address] Annmarie Alves, [place] Discharge Disposition: Discharged to home or Selfcare [...] Notes * Plan of Care - Annmarie Alves, TEMO - 05/03/2022 10:00 AM CDT Treatment Note - Electronically signed by: ANNMARIE ALVES PTA May 03, 2022 SUBJECTIVE: Pt reports she is 4 weeks . Pt states overall her pain is about the same but she was able to help her friend move this weekend which required her to do lifting. Pt states she was sore by the end of the day. Objective TREATMENT: Refer to PT OP Rehab Therapy Treatment flowsheet for details/minutes. Home Exercises distributed via handout and text. [employer] information: Access Code: [email or web address] URL: [email or web address] Date: 04/19/2022 Prepared by: Annmarie Alves Exercises [...] pt in exercises and corrected form when needed. Discussed PT still being appropriate with her being as long as her MD does not restrict her. ASSESSMENT: Other Details: Patient demonstrates progress as [...] relief, soft tissue extensibility and joint mobility (76142) - Therapeutic exercise program for: motion/mobility, strengthening, flexibility, and functional limitations (78437) - Therapeutic activities for functional activity education/training, and in home safety recommendations as appropriate (94161) - Neuro Muscular Re-education for body mechanics education and postural re- education as appropriate(80947) - Patient education regarding posture, ergonomics, body mechanics, HEP progression and exercise performance - Individualized home exercise program - Modalities as needed for pain relief, anti-inflammatory effect and soft tissue extensibility - Mechanical traction (10660) - Trigger point dry needling for pain relief and reducing tension in associated musculature (21172 or 20716) Precautions: No specific precautions Treatment may be altered based on patient progression and symptoms. The plan of care, as well as the benefits and risks of therapy were reviewed with the patient and the patient consented to treatment.. * Plan of Care - Caprice Rios, PT - 05/03/2022 10:00 AM CDT Pt was seen for 5 visits in physical therapy. She was last seen on 05-03-22. Please refer to that note for details. She cancelled her other appointments due to other unrelated medical problems. She is being discharged because she chose not to return to physical therapy at this time. Final measurements were not taken. We will be happy to see her again, if needed, with a new referral. VULCANIZER documented in this encounter Plan of Treatment Upcoming Encounters Date Type Department Care Team (Late st Contact Info) Description 08/19/2024 8:45 AM TIRE VULCANIZER Office Visit [facility] - Family Medicine - [place] [address]2 [place] [address] Bessy Alcaraz APRN, ARAM [address] [address] documented as of this encounter Visit Diagnoses Not on filedocumented in this encounter Additional Health Concerns Assessment Noted Time PHQ-9 Depression Total Score: 11 022 4:00 PM CDT documented as of this encounter Care Teams Groundsman Relationship Specialty Start Date End Date Bessy Alcaraz APRN, CNP #[address] [address] PCP - General Advanced Practice Nurse 10/30/20 Bessy Alcaraz APRN, CNP #[address] [address] Nurse Practitioner Advanced Practice Nurse 10/28/20 documented as of this encounter
--- OUTSIDE RECORDS SUMMARY | 2024-07-28 05:10 | XMS_ITS | Encounter Summary ---
Author Organization [facility] Address [address] [place] [address] Phone Care Team Providers Care Nutritional Health Coach Name Role Phone Bessy Alcaraz APRN, CNP Unavailable [phone] Bessy Alcaraz APRN, CNP Primary Care Provid er Reason for Referral * Consult, Test & Initiate Treatment (Less Than 1 Week) - Closed Specialty Diagnoses / Procedures Referred By Edmund abrams Referred To Contact Behavioral Health Diagnoses Grief reaction MDD (major depressive disorder), recurrent episode, moderate (HCC) Anxiety Bessy Alcaraz APRN, CNP #[address] [address] Phone: tel: fax: Agapito Cuenca LCSW #1 [place] [address] Phone: tel: fax: Referral ID Status Reason Start Date Expiration Date Visits Re quested Visits Authorized [id number] Closed 09/23/2022 3 3 Scheduling Instructions Cee is being referred for counseling, currently . Please contact patient for scheduling questions or concerns. RVISOR CLEANING AND ANNEALING Reason for Visit * Reason Comments Referral Patient here to get a referral for a therapist/psychiatrist. She is 24 weeks and her mother just . Encounter Details Date Type Department Care Team ([facility] Contact Info) Description 09/23/2022 10:00 AM SUPERVISOR CLEANING AND ANNEALING Office Visit [facility] - Family Medicine - [place] [address] [place] [address] Bessy Alcaraz APRN, RAILROAD SWITCHMAN [address] [address] Grief reaction (Primary Dx); MDD (major depressive disorder), recurrent episode, moderate [...] Coronavirus/COVID-19? No / Unsure 09/23/2022 9:52 AM SUPERVISOR CLEANING AND ANNEALING documented as of this encounter Last Filed Vital Signs Vital Sign Reading Time Taken Comments Blood Pressure 116/80 09/23/2022 10:02 AM SUPERVISOR CLEANING AND ANNEALING Pulse 65 09/23/2022 10:02 AM SUPERVISOR CLEANING AND ANNEALING Temperature 36.5 ??C (97.7 ??F) 09/23/2022 10:02 AM C Respiratory Rate 14 09/23/2022 10:02 AM SUPERVISOR CLEANING AND ANNEALING Oxygen Saturation 98% 09/23/2022 10:02 AM SUPERVISOR CLEANING AND ANNEALING Inhaled Oxygen Concentration - - Weight 88.3 kg (194 lb 9.6 oz) 09/23/2022 10:02 AM SUPERVISOR CLEANING AND ANNEALING Height 165.1 cm (5' 5 ) 09/23/2022 10:02 AM SUPERVISOR CLEANING AND ANNEALING Body Mass Index 32.38 09/23/2022 10:02 AM SUPERVISOR CLEANING AND ANNEALING documented in this encounter Functional Status * Question Answer Date of Assessment Author Little interest or pleasure in doing things Not at all 09/23/2022 10:00 AM SUPERVISOR CLEANING AND ANNEALING Aida Daigle Feeling down, depressed, or hopeless Several days 09/23/2022 10:00 AM Aida Lucero th * Over the past 2 weeks, how often have you been bothered by any of the following problems? Question Answer Date of Assessment Author Patient Health Questionnaire -2 Score 1 09/23/2022 10:00 AM SUPERVISOR CLEANING AND ANNEALING Aida Daigle Leonel th documented as of this encounter Patient Instructions * Patient Instructions* Bessy Alcaraz APRN, CNP - 09/23/2022 10:00 AM SUPERVISOR CLEANING AND ANNEALING Vit d supplement: 4,000 IU daily B12 [employer]IS[employer] CLEANING [employer] ANNEALING documented in this encounter Progress Notes * Aiad Daigle [facility] - 09/23/2022 10:00 AM CST Cee March, 26 y.o., female is here for Referral (Patient here to get a referral for a therapist/psychiatrist. She is 24 weeks and her mother just .) Medication Refills: Patient reports/denies need for medication refills. Orders Pended: no Requested Prescriptions No prescriptions requested or ordered in this encounter Home Medications Medication Sig Start Date End Date Taking? Authorizing Provider atomoxetine 80 MG Capsule Take 1 Capsule by mouth daily. Patient not taking: Reported on 09/23/2022 04/15/22 Bessy Alcaraz APRN, CNP There are no discontinued medications. I have reviewed the home medication list with the patient and have reconciled discrepancies. The list is accurate to the best of my knowledge. Smoking Status: Social History Tobacco Use ??? Smoking status: Never ??? Smokeless tobacco: Never Vaping Use ??? Vaping Use: Never used Substance Use Topics ??? Alcohol use: Yes Comment: Rarely ??? Drug use: Never Smoking Cessation Counseling Given: yes Health Care Maintenance: Health Maintenance Due Topic Date Due ??? DTaP/Tdap/Td Immunization (4 - Tdap) 12/12/2003 ??? Pap Smear Never done ??? SARS-COV-2 Immunization (3 - Booster for Pfizer series) 02/20/2021 Orders Pended: no The following BPA's have been addressed with the patient today: Mammogram, Pap, Smoking, Depression, Fall Risk, Nutrition, Advanced Care Planning and HCC RVISOR CLEANING AND ANNEALING * Bessy Alcaraz APRN, ARAM - 09/23/2022 10:00 AM CST [facility] #2 [facility] [place] [address] Dept: [phone] Dept Loc: [phone] Loc Patient: Cee March : 1995 Sex: female Subjective Subjective: HPI: Cee March presents for Referral (Patient here to get a referral for a therapist/psychiatrist. She is 24 weeks and her mother just .) . Mother on 08/23. Struggling with depression Dr Hirsch at [place] 24 weeks. Depression/Anxiety Cee March is a 26 y.o. female who presents for evaluation of depression. She is accompanied by no one. She complains of depressed mood, insomnia, difficulty concentrating and hopelessness. Other symptoms include insomnia, racing thoughts. Onset was approximately 3 weeks ago, and is worsening since that time. She denies current and past suicidal and homicidal intent and plan. Family history significant for nothing significant. Risk factors: negative life event patient's mother unexpectedly three weeks ago. She is also 24 weeks . She did speak with this with her OBGYN who recommend she start medication prescribed it to her. However she is concerned about the medication may due to her unborn child. She would like a referral to counseling or a psychiatrist. Past Medical History Positives Diagnosis Date ??? Abdominal pain ??? Anemia ??? Anxiety and depression ??? Gastritis ??? GERD (gastroesophageal reflux disease) ??? Heart murmur 2019 just found, goes to doctor for this 01/08/19 ??? IBS (irritable bowel syndrome) ??? TMJ (temporomandibular joint syndrome) Current Outpatient Medications on File Prior to Visit Medication Sig Dispense Refill ??? atomoxetine 80 MG Capsule Take 1 Capsule by mouth daily. (Patient not taking: Reported on 09/23/2022) 30 Capsule 0 No current facility-administered medications on [...] dizziness, light-headedness and headaches. Psychiatric/Behavioral: Positive for agitation, decreased concentration, dysphoric mood and sleep disturbance. Negative for behavioral problems, confusion, hallucinations, self-injury and suicidal ideas. The patient is not nervous/anxious and is not hyperactive. Objective Objective: BP 116/80 (BP Location: Left Arm, BP Position: Sitting, BP Cuff Size: Regular) Pulse 65 Temp 97.7 ??F (36.5 ??C) (Temporal) Resp 14 Ht 5' 5 (1.651 m) Wt 194 lb 9.6 oz (88.3 kg) LMP 04/04/2020 (Exact Date) SpO2 98% BMI 32.38 kg/m?? Physical Exam Vitals and nursing note [...] Capillary refill takes less than 2 seconds. Neurological: General: No focal deficit present. Mental Status: She is alert and oriented to person, place, and time. Mental status is at baseline. Psychiatric: Attention and Perception: Attention and perception normal. Mood and Affect: Mood is depressed. Speech: Speech normal. Behavior: Behavior normal. Behavior is cooperative. Thought Content: Thought content normal. Cognition and Memory: Cognition and memory normal. Judgment: Judgment normal. Medical Decision Making: Assessment & Plan Diagnoses and all orders for this visit: Grief reaction - BEHAVIORAL HEALTH REFERRAL; Future MDD (major depressive disorder), recurrent episode, moderate (HCC) - BEHAVIORAL HEALTH REFERRAL; Future Anxiety - BEHAVIORAL HEALTH REFERRAL; Future =discussion held with patient regarding medication risks versus benefit. Will try to get patient into counseling soon. Discussed with her that if her depression worsens or she experiences any thoughts of suicide or wanting to harm herself or her unborn child she should immediately contact the office or go to the emergency department. Patient verbalized understanding. I was able to contact behavioral health inpatient was scheduled an appointment in next couple of weeks. RVISOR CLEANING AND ANNEALING documented in this encounter Plan of Treatment Upcoming Encounters Date Type Department Care Team (Late st Contact Info) Description 08/19/2024 8:45 AM SUPERVISOR CLEANING AND ANNEALING Office Visit [facility] - Family [facility] #2 [place] [address] Bessy Alcaraz APRN, CNP #[address] [address] Scheduled Referrals Name Type Priority Associated Diagnoses Order Schedule BEHAVIORAL HEALTH REFERRAL Outpatient Referral Less Than 1 week Grief reaction MDD (major depressive disorder), recurrent episode, moderate (HCC) Anxiety Expected: 09/23/2022, Expires: 09/24/2023 documented as of this encounter Visit Diagnoses Diagnosis Grief reaction- Primary Adjustment disorder with depressed mood MDD (major depressive disorder), recurrent episode, moderate (HCC) Major depressive disorder, recurrent episode, moderate Anxiety Anxiety state, unspecified documented in this encounter Additional Health Concerns Assessment Noted Time PHQ-9 Depression Total Score: 3 09/24/19 23 10:00 AM SUPERVISOR CLEANING AND ANNEALING documented as of this encounter Care Teams Nutritional Health Coach Relationship Specialty Start Date End Date Bessy Alcaraz APRN, ARAM #[address] [address] PCP - General Advanced Practice Nurse 10/30/20 Bessy Alcaraz APRN, CNP #[address] [address] Nurse Practitioner Advanced Practice Nurse 10/28/20 documented as of this encounter
--- OUTSIDE RECORDS SUMMARY | 2024-07-28 05:10 | XMS_ITS | Encounter Summary ---
Author Organization [facility] Address [address] [place] [address] Phone Care Team Providers Care Conservation Specialist Name Role Phone Bessy Alcaraz APRN, ARAM Unavailable + [phone] Bessy Alcaraz APRN, ARAM Primary Care Provid er Molly Costello APRN, ARAM Unavailable Reason for Visit * Reason Onset Date Comments Medication Refill 02/12/2024 Encounter Details Date Type Department Care Team (Late st Contact Info) Description 02/12/2024 Refill [facility] - Family Medicine [facility] #2 [place] [address] Bessy Alcaraz APRN, ARAM #[address] [address] Medication Refill Social History Tobacco Use Types Packs/Day Years Used Date Smoking Tobacco: Never Smokeless Tobacco: Never Alcohol Use Standard Drinks/Week Comments Yes 0 (1 standard drink = 0.6 oz pur e alcohol) Rarely [facility] Utilities Answer Date Recorded In [...] week 11/27/2023 How often do you attend restorationism or jew serv ices? Never 11/27/2023 Do you belong to any clubs o r organizations such as restorationism groups, unions, fraternal or athletic groups, or [...] Total Score - Questions 1-9 2 11/2023 [facility] - Occupational Stress Questionnaire Answer Date [...] place to sleep or slept in a assisted (including now)? No 11/27/2023 Education Answer Date [...] encounter Miscellaneous Notes * Telephone Encounter - Miri Plasencia RN - 02/12/2024 3:18 PM CDT Per nursing clinical judgement, provider to review and approve the medication(s) order(s) if appropriate. Requested Prescriptions Pending Prescriptions Disp Refills atomoxetine (STRATTERA) 60 MG Capsule 30 Capsule 0 Sig: Take 1 Capsule by mouth daily. There is no refill protocol information for this order Refused Prescriptions Disp Refills buPROPion (WELLBUTRIN) 150 MG XL tablet 90 Tablet 0 Sig: Take 1 Tablet by mouth every morning. Bupropion (6 Month Refill Only) Protocol Failed - 02/12/2024 3:17 PM Failed - Has an encounter in the past 6 months with a depression or anxiety visit diagnosis Failed - Patient has established therapy with Bupropion for at least 6 months Passed - No test in the past 12 months or most recent test was negative Passed - No active on record Passed - Visit with relevant provider in past 6 months or upcoming 90 days Recent Visits Date Type Provider Dept 11/28/23 Office Visit Bessy Alcaraz APRN, ARAM Ossonali Perrinn 09/26/23 Office Visit Bessy Alcaraz APRN, ARAM Ostommy Perrinn 08/29/23 Office Visit Bessy Alcaraz APRN, ARAM Timothy Perrinn Showing recent visits within past 182 days and meeting all other requirements Future Appointments Date Type Provider Dept 03/05/24 Appointment Bessy Alcaraz APRN, CNP Timothy Perrinn Showing future appointments within next 90 days and meeting all other requirements * Telephone Encounter - Susanne Sebastian CMA - 02/12/2024 12:56 PM CDT Patient calling Med Refill line. documented in this encounter Plan of Treatment Upcoming Encounters Date Type Department Care Team (Late st Contact Info) Description 08/19/2024 8:45 AM ACCOUNT TECHNICIAN Office Visit [facility] - Family [facility] #2 [place] [address] Bessy Alcaraz APRN, SERGEANT OF OFFICERS #[address] [address] documented as of this encounter Goals Goal Patient Goal Type Associated Problems Recent Progress Patient-Stated? Author Behavioral Health Behavioral Health On track( 023 4:31 PM CDT) Yes Agapito Cuenca, DEVELOPMENTAL PSYCHOLOGIST Note: I want to cope better with grief and depression over mom's and other issues Goal/Objective: Decrease grieving. Anticipated Time Frame for Goal Completion: 6 months Goal Reviewed with: patient Readiness to change: Ready to change Department associated with goal: [facility] Steps to achieve [...] Diagnosis Attention deficit hyperactivity disorder (ADHD), combined type documented in this encounter Additional Health Concerns Assessment Noted Time PHQ-9 Depression Total Score: 2 09/26/19 24 1:32 PM ACCOUNT TECHNICIAN documented as of this encounter Care Teams Conservation Specialist Relationship Specialty Start Date End Date Bessy Alcaraz APRN, SERGEANT OF OFFICERS #[address] [address] PCP - General Advanced Practice Nurse 10/30/20 Bessy Alcaraz APRN, SERGEANT OF OFFICERS #[address] [address] Nurse Practitioner Advanced Practice Nurse 10/28/20 Molly Costello APRN, SERGEANT OF OFFICERS [address] [place] [address] Nurse Practitioner Advanced Practice Nurse 10/05/23 documented as of this encounter
--- OUTSIDE RECORDS SUMMARY | 2024-07-28 05:10 | XMS_ITS | Encounter Summary ---
Author Organization [employer] Care Team Providers Care Contestant Coordinator Name Role Phone Bessy Alcaraz APRN, CNP Unavailable + [phone] Bessy Alcaraz APRN, CNP Primary Care Provid er Encounter Details Date Type Department Care Team (Latest Contact Info) Description 06/13/2023 Travel Social History Tobacco Use Types Packs/Day [...] st Contact Info) Description 08/19/2024 8:45 AM GEOSPATIAL INFORMATION SCIENTIST Office Visit [facility] - Family Medicine - [place] [address] [place] [address] Bessy Alcaraz APRN, CNP #[address] [address] documented as of this encounter Goals Goal Patient Goal Type Associated Problems Recent Progress Patient-Stated? Author Behavioral Health Behavioral Health On track( 023 4:31 PM CDT) Yes Agapito Cuenca, KASANDRA Note: I want to cope better with grief and depression over mom's and other issues Goal/Objective: Decrease grieving. Anticipated Time Frame for Goal Completion: 6 months Goal Reviewed with: patient Readiness to change: Ready to change Department associated with goal: [facility] Steps to achieve goal: [...] Total Score: 3 09/24/19 23 10:00 AM GEOSPATIAL INFORMATION SCIENTIST documented as of this encounter Care Teams Contestant Coordinator Relationship Specialty Start Date End Date Bessy Alcaraz APRN, ARAM #[address] [address] PCP - General Advanced Practice Nurse 10/30/20 Bessy Alcaraz APRN, ARAM #[address] [facility] [address] Nurse Practitioner Advanced Practice Nurse 10/28/20 documented as of this encounter
--- OUTSIDE RECORDS SUMMARY | 2024-07-28 05:10 | XMS_ITS | Encounter Summary ---
Author Organization [facility] Address [address] [place] [address] Phone Care Team Providers Care Animal Anatomy Teacher Name Role Phone Bessy Alcaraz APRN, CNP Unavailable + [phone] Bessy Alcaraz APRN, CNP Primary Care Provid er Encounter Details Date Type Department Care Team (Late st Contact Info) Description 09/27/2023 Refill [facility] - Family Medicine - [place] #2 [place] [address] Bessy Alcaraz APRN, CNP #[address] [address] Social History Tobacco Use Types Packs/Day Years Used Date Smoking Tobacco: Never Smokeless Tobacco: Never Alcohol Use Standard Drinks/Week Comments Yes 0 (1 standard drink = 0.6 oz pur e alcohol) Rarely [facility] Utilities Answer Date Recorded In the past 12 months has [employer] electric, gas, oil, or water company threatened [...] re latives? Once a week 08/29/2023 Attends [employer]az[employer]ism Services Not on file 08/29 Active Member [...] Total Score - Questions 1-9 2 11/2023 [facility] - Occupational [...] encounter Miscellaneous Notes * Telephone Encounter - Alexia Gunter RN - 09/27/2023 11:39 AM AMMONIA TECHNICIAN Received fax from [facility] stating that they do not fill Phentermine at this pharmacy. Called [email or web address] and they have it in stock. New script pend for approval NIA TECHNICIAN documented in this encounter Plan of Treatment Upcoming Encounters Date Type Department Care Team (Late st Contact Info) Description 08/19/2024 8:45 AM AMMONIA TECHNICIAN Office Visit [facility] - Family Medicine - [place] [address] [place] [address] Bessy Alcaraz APRN, ELECTROPLATER #[address] [address] documented as of this encounter Goals Goal Patient Goal Type Associated Problems Recent Progress Patient-Stated? Author Behavioral Health Behavioral Health On track( 023 4:31 PM CDT) Yes Agapito Cuenca, GAUGE AND WEIGH MACHINE ADJUSTER Note: I want to cope better with [...] as of this encounter Visit Diagnoses Diagnosis BMI 38.0-38.9,adult Body Mass Index 38.0-38.9, adult documented in this encounter Additional Health Concerns Assessment Noted Time PHQ-9 Depression Total Score: 2 09/26/19 24 1:32 PM AMMONIA TECHNICIAN documented as of this encounter Care Teams Animal Anatomy Teacher Relationship Specialty Start Date End Date Bessy Alcaraz APRN, ARAM #[address] [address] PCP - General Advanced Practice Nurse 10/30/20 Bessy Alcaraz APRN, ARAM #[address] [address] Nurse Practitioner Advanced Practice Nurse 10/28/20 documented as of this encounter
--- OUTSIDE RECORDS SUMMARY | 2024-07-28 05:10 | XMS_ITS | Encounter Summary ---
Author Organization [facility] Address [address] [place] [address] Phone Care Team Providers Care Hothouse Worker Name Role Phone Bessy Alcaraz APRN, CNP Unavailable + [phone] Bessy Alcaraz APRN, CNP Primary Care Provid er Reason for Visit * Reason Comments ADHD She is here to talk about adhd medication Encounter Details Date Type Department Care Team (Late st Contact Info) Description 06/13/2023 2:45 PM DIRECTOR OF CAREER RESOURCES Office Visit [facility] - Family Medicine - [place] [address] [place] [address] Bessy Alcaraz APRN, CNP #[address] [address] Attention deficit hyperactivity disorder (ADHD), combined type (Primary Dx) Discharge Disposition: Discharged to home [...] Reading Time Taken Comments Blood Pressure 118/74 06/13/2023 3:02 PM DIRECTOR OF CAREER RESOURCES Pulse 72 06/13/2023 3:02 PM DIRECTOR OF CAREER RESOURCES Temperature 36.5 ??C (97.7 ??F) 06/13/2023 3:02 PM CS T Respiratory Rate 14 06/13/2023 3:02 PM DIRECTOR OF CAREER RESOURCES Oxygen Saturation 99% 06/13/2023 3:02 PM DIRECTOR OF CAREER RESOURCES Inhaled Oxygen Concentration - - Weight 88 kg (193 lb 14.4 oz) 06/13/2023 3:02 PM DIRECTOR OF CAREER RESOURCES Height 152.4 cm (5') 06/13/2023 3:02 PM DIRECTOR OF CAREER RESOURCES Body Mass Index 37.87 06/13/2023 3:02 PM DIRECTOR OF CAREER RESOURCES documented in this encounter Progress Notes * Aida Daigle - 06/13/2023 2:45 PM CST Cee March is a 27 y.o. female with current BMI: Body mass index is 37.87 kg/m??. Interventions discussed including: encourage daily physical activity and well- balanced diet. CTOR OF CAREER RESOURCES * Aida Daigle - 06/13/2023 2:45 PM CST Cee March, 27 y.o., female is here for ADHD (She is here to talk about adhd medication) Medication Refills: Patient reports/denies need for medication refills. Orders Pended: no Requested Prescriptions No prescriptions requested or ordered in this encounter Home Medications Medication Sig Start Date End Date Taking? Authorizing Provider atomoxetine (Strattera) 60 MG Capsule Take 1 Capsule by mouth daily. 04/28/23 Yes Bessy Alcaraz APRN, LAY OUT WORKER sertraline (ZOLOFT) 100 MG Tablet Take 100 mg by mouth daily. Patient not taking: Reported on 06/13/2023 Provider, MD Raymundo There are no discontinued medications. I have [...] Health Maintenance Due Topic Date Due ??? Pap Smear Never done ??? SARS-COV-2 Immunization ( season) 2023 ??? Hepatitis C Virus (HCV) Screening 03/29/2023 Orders Pended: no The following BPA's have been addressed with the patient today: Mammogram, Pap, Smoking, Depression, Fall Risk, Nutrition, Advanced Care Planning and HCC CTOR OF CAREER RESOURCES * Bessy Alcaraz APRN, LAY OUT WORKER - 06/13/2023 2:45 PM CST [facility] [address] [facility] [address] Dept: [phone] Dept Loc: [phone] Loc Patient: Cee March : 1995 Sex: female Subjective Subjective: HPI: Cee March presents for ADHD (She is here to talk about adhd medication) . Patient presents today to discuss her adhd medication and weight gain. She has been dieting exercising without improvement. She does intermittant fasting, protein diet, and walking a mile. She has a very active job, three days a week. She has put on 8 lbs since her last visit. She has been on the Strattera for over a year. She stopped it when seh became and when sherestarted it she reports no improvement. She reports decreased concentration, inability to finish tasks, difficulty with time management, and increased anxiety. She reports she is sleeping well. She also has a skin tag in her left axillary.she reports recently turned purple. There is a small cut to it and its non tender. Past Medical History Positives Diagnosis Date ??? Abdominal pain ??? Anemia ??? Anxiety and depression ??? Gastritis ??? GERD (gastroesophageal reflux disease) ??? Heart murmur 2019 just found, goes to doctor for this 01/08/19 ??? IBS (irritable bowel syndrome) ??? TMJ (temporomandibular joint syndrome) Current Outpatient Medications on File Prior to Visit Medication Sig Dispense Refill ??? sertraline (ZOLOFT) 100 MG Tablet Take 100 mg by mouth daily. (Patient not taking: Reported on 06/13/2023) No current facility-administered medications on file prior to visit. No Known Allergies Past Surgical History: Procedure Laterality Date ??? COLONOSCOPY 2017 [place] ??? COLONOSCOPY Left 12/27/2018 Procedure: COLONOSCOPY-HEMORRHOIDS; Surgeon: Scooby Cuellar MD; Location: [facility]; Service: Gastroenterology ??? ORAL SURGERY PROCEDURE Abcess tooth removed and wisdom teeth ??? TONSILLECTOMY Social History Tobacco Use ??? Smoking status: Never ??? Smokeless tobacco: Never Vaping Use ??? Vaping Use: Never used Substance Use Topics ??? Alcohol use: Yes Comment: Rarely ??? Drug use: Never Review of Systems Constitutional: Negative for activity change, appetite change, chills, fatigue and fever. Respiratory: Negative for cough, chest tightness, shortness of breath and wheezing. Cardiovascular: Negative for chest pain, palpitations and leg swelling. Gastrointestinal: Negative for constipation, diarrhea, nausea and vomiting. Skin: Skin tag Neurological: Negative for dizziness, light-headedness and headaches. Psychiatric/Behavioral: Positive for agitation and decreased concentration. Negative for behavioralproblems, confusion, dysphoric mood, hallucinations, self-injury, sleep disturbance and suicidal ideas. The patient is nervous/anxious. The patient is not hyperactive. Objective Objective: BP 118/74 (BP Location: Left Arm, BP Position: Sitting, BP Cuff Size: Regular) Pulse 72 Temp 97.7 ??F (36.5 ??C) (Temporal) Resp 14 Ht 5' (1.524 m) Wt 193 lb 14.4 oz (88 kg) LMP 05/30/2023 (Exact Date) SpO2 99% No BMI 37.87 kg/m?? Physical Exam Vitals and nursing note [...] Capillary refill takes less than 2 seconds. Comments: Skin tag left axillary, laceration at base Neurological: General: No focal deficit present. Mental Status: She is alert and oriented to person, place, and time. Psychiatric: Attention and Perception: Attention and perception normal. Mood and Affect: Affect normal. Mood is anxious. Speech: Speech normal. Behavior: Behavior normal. Behavior is cooperative. Thought Content: Thought content normal. Cognition and Memory: Cognition and memory normal. Judgment: Judgment normal. Medical Decision Making: Assessment & Plan Diagnoses and all orders for this visit: Attention deficit hyperactivity disorder (ADHD), combined type - Discontinue: Vyvanse 30 MG Capsule; Take 1 Capsule by mouth daily. Discussed with patient regarding her options for ADHD medication. Has not done well on non stimulants. Will switch her to Vyvanse as she works long hours. Instructed to only take when she is working.Patient verbalizes understanding. [facility] reviewed. She is not breast-feeding Discussed side effects which does include weight loss. Patient verbalized understanding. Patient has a skin tag, suspect his turn purple due to the recent cut. It may fall off. Patient will monitor the area. Follow-up in 4 weeks. CTOR OF CAREER RESOURCES documented in this encounter Plan of Treatment Upcoming Encounters Date Type Department Care Team (Late st Contact Info) Description 08/19/2024 8:45 AM DIRECTOR OF CAREER RESOURCES Office Visit [facility] - Family [facility] [address]2 [place] [address] Bessy Alcaraz APRN, CNP #[address] [facility] [place] [address] documented as of this encounter Goals Goal Patient Goal Type Associated Problems Recent Progress Patient-Stated? Author Behavioral Health Behavioral Health On track( 023 4:31 PM CDT) Yes Agapito Cuenca, GEOTHERMAL PLANT MANAGER Note: I want to cope better with grief and depression over mom's and other issues Goal/Objective: Decrease grieving. Anticipated Time Frame for Goal Completion: 6 months Goal Reviewed with: patient Readiness to change: Ready to change Department associated with goal: [facility] Steps to [...] deficit hyperactivity disorder (ADHD), combined type- Primary documented in this encounter Additional Health Concerns Assessment Noted Time PHQ-9 Depression Total Score: 3 09/24/19 23 10:00 AM DIRECTOR OF CAREER RESOURCES documented as of this encounter Care Teams Hothouse Worker Relationship Specialty Start Date End Date Bessy Alcaraz APRN, CNP #[address] [facility] [place] [address] PCP - General Advanced Practice Nurse 10/30/20 Bessy Alcaraz APRN, CNP #[address] [address] Nurse Practitioner Advanced Practice Nurse 10/28/20 documented as of this encounter
--- OUTSIDE RECORDS SUMMARY | 2024-07-28 05:10 | XMS_ITS | Encounter Summary ---
Author Organization [employer] Care Team Providers Care Special Needs Tutor Name Role Phone Bessy Alcaraz APRN, ARAM Unavailable +1- [phone] Bessy Alcaraz APRN, CNP Primary Care Provid er Molly Costello APRN, ARAM Unavailable Encounter Details Date Type Department Care Team (Latest Contact Info) Description 03/05/2024 Travel Social History Tobacco Use Types Packs/Day Years Used Date Smoking Tobacco: Never Smokeless Tobacco: Never Alcohol Use Standard Drinks/Week Comments Yes 0 (1 standard drink = 0.6 oz pur e alcohol) Rarely [facility] Utilities Answer Date Recorded In the past 12 months has [employer] electric, gas, oil, or water company threatened [...] week 03/05/2024 How often do you attend chur ch or rastafarian services? Never 03/05/2024 Do you belong to [...] Total Score - Questions 1-9 2 11/2023 [facility] [place] of Occupat ional Health - Occupational Stress [...] any time in the past 12 m ont, were you homeless or living in a [...] things Not at all 03/05/2024 8:40 AM CDT Tabitha Willams MA Feeling down, depressed, or hopeless Not at all 03/05/2024 8:40 AM CDT Tabitha Willams MA * Over the past 2 weeks, how often have you been bothered by any of the following problems? Question Answer Date of Assessment Author Patient Health Questionnaire -2 Score 0 03/05/2024 8:40 AM CDT Tabitha Willams MA documented as of this encounter Plan of Treatment Upcoming Encounters Date Type Department Care Team (Late st Contact Info) Description 08/19/2024 8:45 AM ROPE MAKING MACHINE OPERATOR Office Visit [facility] - Family Medicine [facility] #2 [place] [address] Bessy Alcaraz APRN, TELEGRAPH OPERATOR #[address] [address] documented as of this encounter Goals Goal Patient Goal Type Associated Problems Recent Progress Patient-Stated? Author Behavioral Health Behavioral Health On track( 023 4:31 PM CDT) Yes Agapito Cuenca, BACKUP OPERATOR Note: I want to cope better [...] Total Score: 2 09/26/19 24 1:32 PM ROPE MAKING MACHINE OPERATOR documented as of this encounter Care Teams Special Needs Tutor Relationship Specialty Start Date End Date Bessy Alcaraz APRN, ARAM #[address] [address] PCP - General Advanced Practice Nurse 10/30/20 Bessy Alcaraz APRN, ARAM #[address] [address] Nurse Practitioner Advanced Practice Nurse 10/28/20 Molly Costello APRN, TELEGRAPH OPERATOR [address]2 [place] [address] Nurse Practitioner Advanced Practice Nurse 10/05/23 documented as of this encounter
--- OUTSIDE RECORDS SUMMARY | 2024-07-28 05:10 | XMS_ITS | Encounter Summary ---
Author Organization [employer] Care Team Providers Care Legal Activity Adjudicator Name Role Phone Bessy Alcaraz APRN, ARAM Unavailable +1- [phone] Bessy Alcaraz APRN, CNP Primary Care Provid er Molly Costello APRN, ARAM Unavailable Encounter Details Date Type Department Care Team (Latest Contact Info) Description 01/16/2024 Travel Social History Tobacco Use Types Packs/Day Years Used Date Smoking Tobacco: Never Smokeless Tobacco: Never Alcohol Use Standard Drinks/Week Comments Yes 0 (1 standard drink = 0.6 oz pur e alcohol) Rarely [facility] Utilities Answer Date Recorded In the past 12 months has [employer] electric, gas, oil, or water company threatened [...] week 11/27/2023 How often do you attend jehovah's witness or confucianist serv ices? Never 11/27/2023 Do you belong to any clubs o r organizations such as jehovah's witness groups, unions, fraternal or athletic groups, or [...] Total Score - Questions 1-9 2 11/2023 [facility] of Occupat ional Health - Occupational Stress [...] place to sleep or slept in a custodial (including now)? No 11/27/2023 Education Answer Date [...] st Contact Info) Description 08/19/2024 8:45 AM RECEIVING LEAD Office Visit [facility] [address]2 [place] [address] Bessy Alcaraz APRN, AERONAUTICS COMMISSION DIRECTOR #[address] [address] documented as of this encounter Goals Goal Patient Goal Type Associated Problems Recent Progress Patient-Stated? Author Behavioral Health Behavioral Health On track( 023 4:31 PM CDT) Yes Agapito Cuenca, QUARTZ ORIENTATOR Note: I want to cope better with grief and depression over mom's and other issues Goal/Objective: Decrease grieving. Anticipated Time Frame for Goal Completion: 6 months Goal Reviewed with: patient Readiness to change: Ready to change Department associated with goal: [facility] Steps [...] Total Score: 2 09/26/19 24 1:32 PM RECEIVING LEAD documented as of this encounter Care Teams Legal Activity Adjudicator Relationship Specialty Start Date End Date Bessy Alcaraz APRN, ARAM #[address] [phone] PCP - General Advanced Practice Nurse 10/30/20 Bessy Alcaraz APRN, ARAM #[address] [phone] Nurse Practitioner Advanced Practice Nurse 10/28/20 Molly Costello APRN, ARAM [address]2 [place] [address] Nurse Practitioner Advanced Practice Nurse 10/05/23 documented as of this encounter
--- OUTSIDE RECORDS SUMMARY | 2024-07-28 05:10 | XMS_ITS | Encounter Summary ---
Author Organization [facility] Address [address] [place] [address] Phone Care Team Providers Care Ibm Web[employer] Commerce Developer Name Role Phone Bessy Alcaraz APRN, ARAM Unavailable + [phone] Bessy Alcaraz APRN, ARAM Primary Care Provid er Molly Costello APRN, ARAM Unavailable Reason for Visit * Reason Onset Date Comments Medication Refill 02/16/2024 Encounter Details Date Type Department Care Team (Late st Contact Info) Description 02/16/2024 MyChart RX Renewal [facility] #2 [place] [address] Bessy Alcaraz APRN, ARAM #[address] [address] Medication Renewal Declined Social History Tobacco Use Types Packs/Day Years Used Date Smoking Tobacco: Never Smokeless Tobacco: Never Alcohol Use Standard Drinks/Week Comments Yes 0 (1 standard drink = 0.6 oz pur e alcohol) Rarely [facility] Utilities Answer Date Recorded In the [...] week 11/27/2023 How often do you attend protestant or worship serv ices? Never 11/27/2023 Do you belong to any clubs o r organizations such as protestant groups, unions, fraternal or athletic groups, or [...] Total Score - Questions 1-9 2 11/2023 [facility] of Occupat ional Health - [...] st Contact Info) Description 08/19/2024 8:45 AM CIRCUS ROUSTABOUT Office Visit [facility] - Family Medicine [facility] [address]2 [place] [phone] Bessy Alcaraz APRN, PRESSURE TESTING TECHNICIAN #[address] [phone] documented as of this encounter Goals Goal Patient Goal Type Associated Problems Recent Progress Patient-Stated? Author Behavioral Health Behavioral Health On track( 023 4:31 PM CDT) Yes Agapito Cuenca, INDUSTRIAL MACHINE SYSTEM TECHNICIAN Note: I want to cope better [...] Total Score: 2 09/26/19 24 1:32 PM CIRCUS ROUSTABOUT documented as of this encounter Care Teams Ibm Websphere Commerce Developer Relationship Specialty Start Date End Date Bessy Alcaraz APRN, ARAM #[address] [address] PCP - General Advanced Practice Nurse 10/30/20 Bessy Alcaraz APRN, ARAM #[address] [address] Nurse Practitioner Advanced Practice Nurse 10/28/20 Molly Costello APRN, ARAM [address] [place] [address] Nurse Practitioner Advanced Practice Nurse 10/05/23 documented as of this encounter
--- OUTSIDE RECORDS SUMMARY | 2024-07-28 05:10 | XMS_ITS | Encounter Summary ---
Author Organization [facility] Address [address] [place] [address] Phone Care Team Providers Care Clinical Rn Manager Name Role Phone Bessy Alcaraz APRN, ARAM Unavailable + [phone] Bessy Alcaraz APRN, ARAM Primary Care Provid er Molly Costello APRN, ARAM Unavailable Reason for Visit * Reason Onset Date Comments Medication Refill 04/01/2024 Encounter Details Date Type Department Care Team (Late st Contact Info) Description 04/01/2024 MyChart RX Renewal [facility] - Family Medicine [facility] #2 [place] [address] Bessy Alcaraz APRN, ARAM #[address] [address] Medication Renewal Declined Social History Tobacco Use Types Packs/Day Years Used Date Smoking Tobacco: Never Smokeless Tobacco: Never Alcohol Use Standard Drinks/Week Comments Yes 0 (1 standard drink = 0.6 oz pur e alcohol) Rarely [facility] Utilities Answer Date Recorded In [...] often do you attend chur ch or mormonism services? Never 03/05/2024 Do you belong to any clubs o r organizations such as spiritism groups, unions, fraternal or athletic groups, or [...] Recorded Total Score - Questions 1-9 2 03/0 11/2023 [facility] of Occupat ional Health - Occupational [...] place to sleep or slept in a mcfp (including now)? No 11/27/2023 Housing Stability Vital Sign Answer Harley e Recorded In the last 12 months, was t here a time when you were not able to pay the mortgage or rent on time? Patient declined 03/05/20 24 Number of Times Moved in the Last Year Not on fi le 03/05/2024 At any time in the past 12 m [facility], were you homeless or living in a mcfp (including now)? Patient declined 03/05/2024 Education Answer [...] st Contact Info) Description 08/19/2024 8:45 AM REAL TIME OPERATOR Office Visit [facility] - Family Medicine - [place] [address] [place] [address] Bessy Alcaraz APRN, TOUR BUS DRIVER/GUIDE [address] [address] documented as of this encounter Goals Goal Patient Goal Type Associated Problems Recent Progress Patient-Stated? Author Behavioral Health Behavioral Health On track( 023 4:31 PM CDT) Yes Agapito Cuenca, TIE TAPE MACHINE OPERATOR Note: I want to cope better with grief and depression over mom's and other issues Goal/Objective: Decrease grieving. Anticipated Time Frame for Goal Completion: 6 months Goal Reviewed with: patient Readiness to change: Ready to change Department associated with goal: [facility] Steps to [...] Total Score: 2 09/26/19 24 1:32 PM REAL TIME OPERATOR documented as of this encounter Care Teams Clinical Rn Manager Relationship Specialty Start Date End Date Bessy Alcaraz APRN, ARAM #[address] [address] PCP - General Advanced Practice Nurse 10/30/20 Bessy Alcaraz APRN, ARAM #[address] [address] Nurse Practitioner Advanced Practice Nurse 10/28/20 Molly Costello APRN, ARAM [address] [place] [address] Nurse Practitioner Advanced Practice Nurse 10/05/23 documented as of this encounter
--- OUTSIDE RECORDS SUMMARY | 2024-07-28 05:10 | XMS_ITS | Encounter Summary ---
Author Organization [facility] [employer] Care Team Providers Care Benefits Counselor Name Role Phone Bessy Alcaraz APRN, CNP Unavailable +- [phone] Bessy Alcaraz APRN, CNP Primary Care Provid er Encounter Details Date Type Department Care Team (Latest Contact Info) Description 05/18/2022 Travel Social History Tobacco Use Types Packs/Day [...] st Contact Info) Description 08/19/2024 8:45 AM BIODIESEL PLANT SUPERINTENDENT Office Visit [facility] - Family [facility] #2 [place] [address] Bessy Alcaraz APRN, CNP #[address] [address] documented as of this encounter Visit Diagnoses Not on filedocumented in this encounter Additional Health Concerns Assessment Noted Time PHQ-9 Depression Total Score: 11 10/26/ 022 4:00 PM CDT documented as of this encounter Care Teams Benefits Counselor Relationship Specialty Start Date End Date Bessy Alcaraz APRN, ARAM #[address] [address] PCP - General Advanced Practice Nurse 10/30/20 Bessy Alcaraz APRN, ARAM #[address] [address] Nurse Practitioner Advanced Practice Nurse 10/28/20 documented as of this encounter
--- OUTSIDE RECORDS SUMMARY | 2024-07-28 05:10 | XMS_ITS | Encounter Summary ---
Author Organization [facility] [employer] Care Team Providers Care Toy Parts Former Supervisor Name Role Phone Bessy Alcaraz APRN, CNP Unavailable +1- [phone] Bessy Alcaraz APRN, CNP Primary Care Provid er Encounter Details Date Type Department Care Team (Latest Contact Info) Description 10/06/2022 Travel Social History Tobacco Use Types Packs/Day [...] st Contact Info) Description 08/19/2024 8:45 AM COREMAKING MACHINE OPERATOR Office Visit [facility] - Family [facility] #2 [place] [address] Bessy Alcaraz APRN, CNP #[address] [address] documented as of this encounter Visit Diagnoses Not on filedocumented in this encounter Additional Health Concerns Assessment Noted Time PHQ-9 Depression Total Score: 3 09/24/19 23 10:00 AM COREMAKING MACHINE OPERATOR documented as of this encounter Care Teams Toy Parts Former Supervisor Relationship Specialty Start Date End Date Bessy Alcaraz APRN, ARAM #[address] [address] PCP - General Advanced Practice Nurse 10/30/20 Bessy Alcaraz APRN, ARAM #[address] [address] Nurse Practitioner Advanced Practice Nurse 10/28/20 documented as of this encounter
--- OUTSIDE RECORDS SUMMARY | 2024-07-28 05:10 | XMS_ITS | Encounter Summary ---
Author Organization [facility] Address [address] [place] [address] Phone Care Team Providers Care Credit Operations Processor Name Role Phone Bessy Alcaraz APRN, ARAM Unavailable + [phone] Bessy Alcaraz APRN, ARAM Primary Care Provid er Molly Costello APRN, BILLET CHECKER Unavailable Reason for Visit * Reason Onset Date Comments Follow-up 12/08/2023 Encounter Details Date Type Department Care Team (Late st Contact Info) Description 12/08/2023 Telephone [facility] [address] [place] [address] Bessy Alcaraz APRN, BILLET CHECKER #[address] [address] Follow-up Social History Tobacco Use Types Packs/Day Years Used Date Smoking Tobacco: Never Smokeless Tobacco: Never Alcohol Use Standard Drinks/Week Comments Yes 0 (1 standard drink = 0.6 oz pur e alcohol) Rarely C Utilities Answer Date Recorded In the past 12 months has [employer] electric, gas, oil, or water company threatened [...] How often do you attend restorationism or pentecostalism serv ices? Never 11/27/2023 Do [...] Total Score - Questions 1-9 2 11/2023 [facility] of Occupat ional Health - Occupational Stress [...] in a retirement (including now)? No 11/27/2023 Education Answer Date [...] encounter Miscellaneous Notes * Telephone Encounter - Amado Grimes RN - 12/08/2023 8:47 AM CDT See other encounter * Telephone Encounter - Luciana Sanders - 12/08/2023 8:37 AM CDT Symptoms: Vomiting, Constipation, Dizziness, Headache Outcome: Transfer to unhairing machine operator queue Reason: Caller denied all higher acuity questions The caller accepted this outcome Caller denied: * Can't stand (unless normally can't stand) * Acting confused * Passed out * Sudden worst headache of life now * Blood in the vomit * Severe headache * Trouble walking documented in this encounter Plan of Treatment Upcoming Encounters Date Type Department Care Team (Late st Contact Info) Description 08/19/2024 8:45 AM COMPUTER SYSTEMS CONSULTANT Office Visit [facility] - [facility] [address] [place] [address] Bessy Alcaraz APRN, ARAM #[address] [phone] documented as of this encounter Goals Goal [...] Ready to change Department associated with goal: [facility] Steps to achieve goal: [...] Total Score: 2 09/26/19 24 1:32 PM COMPUTER SYSTEMS CONSULTANT documented as of this encounter Care Teams Credit Operations Processor Relationship Specialty Start Date End Date Bessy Alcaraz APRN, CNP #[address] [phone] PCP - General Advanced Practice Nurse 10/30/20 Bessy Alcaraz APRN, CNP #[address] [address] Nurse Practitioner Advanced Practice Nurse 10/28/20 Molly Costello APRN, BILLET CHECKER [address] [place] [address] Nurse Practitioner Advanced Practice Nurse 10/05/23 documented as of this encounter
--- OUTSIDE RECORDS SUMMARY | 2024-07-28 05:10 | XMS_ITS | Encounter Summary ---
Author Organization [facility] Address [address] [place] [address] Phone Care Team Providers Care Client Leader Name Role Phone Bessy Alcaraz APRN, ARAM Unavailable + [phone] Bessy Alcaraz APRN, ARAM Primary Care Provid er Molly Costello APRN, ENHANCED ENVIRONMENTAL OPERATOR Unavailable Reason for Visit * Reason Onset Date Comments Rash 01/30/2024 Encounter Details Date Type Department Care Team (Late st Contact Info) Description 01/30/2024 Nurse Triage [facility] [address] [place] [address] Bessy Alcaraz APRN, ENHANCED ENVIRONMENTAL OPERATOR #[address] [address] Rash Social History Tobacco Use Types Packs/Day Years Used Date Smoking Tobacco: Never Smokeless Tobacco: Never Alcohol Use Standard Drinks/Week Comments Yes 0 (1 standard drink = 0.6 oz pur e alcohol) Rarely [facility] Utilities Answer Date Recorded In the past 12 months has [employer], gas, oil, or water company threatened to [...] week 11/27/2023 How often do you attend anglican or shinto serv ices? Never 11/27/2023 Do you belong to any clubs o r organizations such as anglican groups, unions, fraternal or athletic groups, or [...] Total Score - Questions 1-9 2 11/2023 [facility] of Occupat ional Health - Occupational Stress [...] medical appointments or from getting medications? No 05/0 12/2023 In the past 12 months, has [...] place to sleep or slept in a intermediate (including now)? No 11/27/2023 Education Answer Date [...] encounter Miscellaneous Notes * Telephone Encounter - Grace Roth RN - 01/30/2024 5:26 PM CDT Situation: Follow up Background: Cee calling back about symptoms. She was advised earlier today to be seen at Urgent Care. Patientdid not go to Urgent Care. Assessment: See below Recommendation: Patient advised on importance of being seen today with Urgent Care. Virtual care option offered to patient. Patient states she will go ahead with virtual urgent care. 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 If symptoms increase, change or if new symptoms develop, call your HCP or call back. Recommendations were based on caller information and is not a diagnosis. Verified and reviewed all triage information with caller. Reason for Disposition Localized purple or blood-colored spots or dots that are not from injury or friction (no fever) Protocols used: Rash or Redness - Jnysnpirq-V-XW * Telephone Encounter - Marielle Dodd - 01/30/2024 9:37 AM CDT Symptom: Uxai-Pnss-Mbz-Mouth Disease - Caller Reports Outcome: Schedule an appointment at earliest convenience. Reason: Caller denied all higher acuity questions The caller accepted this outcome Caller denied: * No urine (pee) in past 8 hours * Severe pain now * Trouble drinking documented in this encounter Plan of Treatment Upcoming Encounters Date Type Department Care Team (Late st Contact Info) Description 08/19/2024 8:45 AM SIGNAL MECHANIC [facility] [address] [place] [address] Bessy Alcaraz APRN, ENHANCED ENVIRONMENTAL OPERATOR #[address] [phone] documented as of this encounter Goals Goal Patient Goal Type Associated Problems Recent Progress Patient-Stated? Author Behavioral Health Behavioral Health On track( 023 4:31 PM CDT) Yes Agapito Cuenca, PROJECT ASSOCIATE Note: I want to cope better with grief and depression over mom's and other issues Goal/Objective: Decrease grieving. Anticipated Time Frame for Goal Completion: 6 months Goal Reviewed with: patient Readiness to change: Ready to change Department associated with goal: [facility] Steps to achieve goal: [...] Total Score: 2 09/26/19 24 1:32 PM SIGNAL MECHANIC documented as of this encounter Care Teams Client Leader Relationship Specialty Start Date End Date Bessy Alcaraz APRN, ARAM #[address] [address] PCP - General Advanced Practice Nurse 10/30/20 Bessy Alcaraz APRN, ARAM #[address] [address] Nurse Practitioner Advanced Practice Nurse 10/28/20 Molly Costello APRN, ENHANCED ENVIRONMENTAL OPERATOR [address] [place] [address] Nurse Practitioner Advanced Practice Nurse 10/05/23 documented as of this encounter
--- OUTSIDE RECORDS SUMMARY | 2024-07-28 05:10 | XMS_ITS | Encounter Summary ---
Author Organization [facility] Care Team Providers Care Tilting Saw Operator Name Role Phone Bessy Alcaraz APRN, CNP Unavailable +[phone] Bessy Alcaraz APRN, CNP Primary Care Provid er Encounter Details Date Type Department Care Team (Latest Contact Info) Description 09/26/2023 Travel Social History Tobacco Use Types Packs/Day Years Used Date Smoking Tobacco: Never Smokeless Tobacco: Never Alcohol Use Standard Drinks/Week Comments Yes 0 (1 standard drink = 0.6 oz pur e alcohol) Rarely C Utilities Answer Date Recorded In the past 12 months has [employer] electric, gas, oil, or water company threatened [...] re latives? Once a week 08/29/2023 Attends Holiness Services Not on file 08/29 Active Member [...] Total Score - Questions 1-9 2 11/2023 [facility] of Occupat ional [facility] - Occupational Stress Questionnaire Answer Date [...] things Not at all 09/26/2023 1:32 PM [employer]ACE [employer] M[employer]SILE DEFENSE OPERATIONS Aida Daigle Feeling down, depressed, or hopeless Not at all 09/26/2023 1:32 PM SPACE AND MISSILE DEFENSE OPERATIONS Aida Daigle * Over the past 2 weeks, how often have you been bothered by any of the following problems? Question Answer Date of Assessment Author Patient Health Questionnaire-2 Score 0 11/2023 1:32 PM [employer]ACE [employer]SILE [employer]ENSE OPERATIONS Aida Daigle documented as of this encounter Plan of Treatment Upcoming Encounters Date Type Department Care Team (Late st Contact Info) Description 08/19/2024 8:45 AM SPACE AND MISSILE DEFENSE OPERATIONS [facility] [address] [place] [address] Bessy Alcaraz APRN, PARKING SUPERVISOR #[address] [address] documented as of this encounter Goals Goal Patient Goal Type Associated Problems Recent Progress Patient-Stated? Author Behavioral Health Behavioral Health On track( 023 4:31 PM CDT) Yes Agapito Cuenca, LABORER PIPELINE Note: I want to cope better with [...] Total Score: 2 09/26/19 24 1:32 PM [employer]ACE AND MISSILE [employer]ENSE OPERATIONS documented as of this encounter Care Teams Tilting Saw Operator Relationship Specialty Start Date End Date Bessy Alcaraz APRN, ARAM #[address] [phone] PCP - General Advanced Practice Nurse 10/30/20 Bessy Alcaraz APRN, CNP #[address] [phone] Nurse Practitioner Advanced Practice Nurse 10/28/20 documented as of this encounter
--- OUTSIDE RECORDS SUMMARY | 2024-07-28 05:10 | XMS_ITS | Encounter Summary ---
Author Organization [facility] Address [address] [place] [address] Phone Care Team Providers Care Signal Mechanic Name Role Phone Bessy Alcaraz APRN, CNP Unavailable + [phone] Bessy Alcaraz APRN, CNP Primary Care Provid er Reason for Visit * Reason Comments Ear Pain On antibiotics x3 da ys. Encounter Details Date Type Department Care Team (Late st Contact Info) Description 07/27/2023 11:15 AM SECURITY INCIDENT RESPONSE ENGINEER Office Visit [facility] - [facility] - [place] [address] [place] [address] Manuel Quintero APRN, BATTERY CONTAINER TESTER #[address] [address] Non-recurrent acute suppurative otitis media of both ears with spontaneous rupture of tympanic membranes (Primary Dx) Discharge Disposition: Discharged to home [...] Sign Reading Time Taken Comments Blood Pressure 122/64 07/27/2023 11:15 AM SECURITY INCIDENT RESPONSE ENGINEER Pulse 64 07/27/2023 11:15 AM SECURITY INCIDENT RESPONSE ENGINEER Temperature 36.4 ??C (97.5 ??F) 07/27/2023 11:[address] Respiratory Rate 16 07/27/2023 11:15 AM SECURITY INCIDENT RESPONSE ENGINEER Oxygen Saturation 98% 07/27/2023 11:15 AM SECURITY INCIDENT RESPONSE ENGINEER Inhaled Oxygen Concentration - - Weight 87.1 kg (192 lb) 07/27/2023 11:15 AM SECURITY INCIDENT RESPONSE ENGINEER Height 165.1 cm (5' 5 ) 07/27/2023 11:15 AM SECURITY INCIDENT RESPONSE ENGINEER Body Mass Index 31.95 07/27/2023 11:15 AM SECURITY INCIDENT RESPONSE ENGINEER documented in this encounter Functional Status * Question Answer Date of Assessment Author Little interest or pleasure in doing things Not at all 07/27/2023 11:11 AM SECURITY INCIDENT RESPONSE ENGINEER Lana Kim CMA Feeling down, depressed, or hopeless Not at all 07/27/2023 11:11 AM SECURITY INCIDENT RESPONSE ENGINEER Lana Kim CMA * Over the past 2 weeks, how often have you been bothered by any of the following problems? Question Answer Date of Assessment Author Patient Health Questionnaire -2 Score 0 07/27/2023 11:11 AM SECURITY INCIDENT RESPONSE ENGINEER Lana Kim CMA documented as of this encounter Progress Notes * Lana Kim CMA - 07/27/2023 11:15 AM CST Cee March, 27 y.o., female is here for Ear Pain (On antibiotics x3 days.) Medication Refills: Patient reports/denies need for medication refills. Orders Pended: no Requested Prescriptions No prescriptions requested or ordered in this encounter Home Medications Medication Sig Start Date End Date Taking? Authorizing Provider amoxicillin (AMOXIL) 875 MG Tablet TAKE 1 TABLET BY MOUTH TWICE DAILY FOR 7 DAYS 07/24/23 Yes Provider, MD Raymundo Methylphenidate HCl (Concerta) 36 MG Tablet Controlled Release Take 1 Tablet by mouth every morning. 07/25/23 Yes Bessy Alcaraz APRN, CNP sertraline (ZOLOFT) 100 MG Tablet Take 100 mg by mouth daily. Patient not taking: Reported on 06/13/2023 Provider, MD Gia Fonseca 30 MG Capsule Take 1 Capsule by [...] done ??? SARS-COV-2 Immunization ( season) 2023 Orders Pended: no The following BPA's have been addressed with the patient today: Depression and Nutrition RITY INCIDENT RESPONSE ENGINEER * Manuel Quintero APRN, CNP - 07/27/2023 11:15 AM CST Subjective: Subjective CC: Ear complaints Cee March is a 27-year-old female who presents the office today for complaint of bilateral ear problems. Pain and drainage. Seen at urgent care and prescribed amoxicillin. No other acute concerns. The history is provided by the patient. No manager language was used. Ear Pain Associated symptoms include ear discharge. Pertinent negatives include no abdominal pain, coughing,diarrhea, headaches, rash, sore throat or vomiting. Review of Systems Constitutional: Negative for chills, fatigue and fever. HENT: Positive for ear discharge and ear pain. Negative for congestion, postnasal drip, sinus pressure, sinus pain, sore throat and trouble swallowing. Eyes: Negative for photophobia, pain and discharge. Respiratory: Negative for cough, chest tightness, shortness of breath and wheezing. Cardiovascular: Negative for chest pain and palpitations. Gastrointestinal: Negative for abdominal pain, constipation, diarrhea, nausea and vomiting. Genitourinary: Negative for dysuria, flank pain, frequency, hematuria and urgency. Musculoskeletal: Negative for arthralgias, back pain and myalgias. Skin: Negative for rash and wound. Neurological: Negative for dizziness, seizures, syncope, numbness and headaches. Psychiatric/Behavioral: Negative for suicidal ideas. Allergies No Known Allergies Medications Current Outpatient Medications: ??? amoxicillin (AMOXIL) 875 MG Tablet, TAKE 1 TABLET BY MOUTH TWICE DAILY FOR 7 DAYS, Disp: , Rfl: ??? Methylphenidate HCl (Concerta) 36 MG Tablet Controlled Release, Take 1 Tablet by mouth every morning., Disp: 14 Tablet, Rfl: 0 ??? sertraline (ZOLOFT) 100 MG Tablet, Take 100 mg by mouth daily. (Patient not taking: Reported on06/13/2023), Disp: , Rfl: Past Medical History Past Medical History Positives Diagnosis Date ??? Abdominal pain ??? Anemia ??? Anxiety and depression ??? Gastritis ??? GERD (gastroesophageal reflux disease) ??? Heart murmur 2019 just found, goes to doctor for this 01/08/19 ??? IBS (irritable bowel syndrome) ??? TMJ (temporomandibular joint syndrome) Past Surgical History Past Surgical History: Procedure Laterality Date ??? COLONOSCOPY 2017 [place] ??? COLONOSCOPY Left 12/27/2018 Procedure: COLONOSCOPY-HEMORRHOIDS; Surgeon: Scooby Cuellar MD; Location: [facility]; Service: Gastroenterology ??? ORAL SURGERY PROCEDURE Abcess tooth removed and wisdom teeth ??? TONSILLECTOMY Family History Family History Problem Relation Age of Onset ??? Chronic Obstructive Pulmonary Disease Mother ??? Hepatitis Mother B ??? Drug Abuse Mother ??? Bipolar Disorder Mother ??? Other-comment Father 50 adenocarcinoma head/neck: Mucuosal carcinoma ??? Heart Attack Father ??? High Cholesterol Father ??? Bipolar Disorder Father ??? Lung Cancer Paternal Aunt ??? Stroke Paternal Aunt ??? Lung Cancer Paternal Uncle ??? Stroke Paternal Uncle ??? Lung Cancer Paternal Grandmother ??? Hypothyroidism Maternal Aunt ??? Hypertension Maternal Aunt ??? Anxiety disorder Maternal Aunt ??? Hypothyroidism Maternal Grandmother ??? Depression Brother ??? Anxiety disorder Brother ??? Depression Brother Social History Social History Tobacco Use ??? Smoking status: Never ??? Smokeless tobacco: Never Vaping Use ??? Vaping Use: Never used Substance Use Topics ??? Alcohol use: Yes Comment: Rarely ??? Drug use: Never Objective: Objective Physical Exam Vitals and nursing note reviewed. Constitutional: General: She is not in acute distress. Appearance: She is well-developed. She is not diaphoretic. HENT: Head: Normocephalic and atraumatic. Right Ear: External ear normal. Tympanic membrane is perforated. Left Ear: External ear normal. Tympanic membrane is perforated. Nose: Nose normal. Eyes: General: Right eye: No discharge. Left eye: No discharge. Conjunctiva/sclera: Conjunctivae normal. Pupils: Pupils are equal, round, and reactive to light. Neck: Trachea: No tracheal deviation. Cardiovascular: Rate and Rhythm: Normal rate and regular rhythm. Heart sounds: Normal heart sounds. No murmur heard. No friction rub. No gallop. Pulmonary: Effort: Pulmonary effort is normal. No respiratory distress. Breath sounds: Normal breath sounds. Abdominal: General: Bowel sounds are normal. Palpations: Abdomen is soft. Tenderness: There is no abdominal tenderness. Musculoskeletal: General: No deformity. Normal range of motion. Cervical back: Normal range of motion and neck supple. Lymphadenopathy: Cervical: No cervical adenopathy. Skin: General: Skin is warm and dry. Coloration: Skin is not pale. Findings: No rash. Neurological: Mental Status: She is alert and oriented to person, place, and time. Psychiatric: Behavior: Behavior normal. Thought Content: Thought content normal. Judgment: Judgment normal. Vitals: 07/27/23 1115 BP: 122/64 Pulse: 64 Resp: 16 Temp: 97.5 ??F (36.4 ??C) TempSrc: Temporal SpO2: 98% Weight: 192 lb (87.1 kg) Height: 5' 5 (1.651 m) Assessment and Plan See Diagnoses, Orders, Follow-up, and Instructions 1. Non-recurrent acute suppurative otitis media of both ears with spontaneous rupture of tympanic membranes Advised keep fluid out of years. Take amoxicillin. Follow-up as scheduled for recheck of ears. I discussed all new medications and potential side effects or risks associated with them. Patient is to contact our office with any concerns. Patient instructions and educational materials were given to the patient. Patient (or patient advertising representative) demonstrates verbal understanding of instructions given. Patient should follow up with their PCP for general health maintenance needs. Patient should contact our office if their problems persist or call 911/go the to ER if issues become more persistent. If any referrals have been made, patient should contact our office with in 3-5 days if they have not heard anything from our referral team or the referring physician. Documentation for this visit on 07/27/23 was completed using a template. I have seen and examined the patient. Everything documented was personally performed at this visit with the necessary additions, deletions and changes made as appropriate. Note: Portions of this chart may have been completed with voice recognition software and may contain slight errors unrecognizable by the users. This would in no way affect the patient's care and is meant to improve length and quality of medical decision making and history taking. RITY INCIDENT RESPONSE ENGINEER documented in this encounter Plan of Treatment Upcoming Encounters Date Type Department Care Team (Late st Contact Info) Description 08/19/2024 8:45 AM SECURITY INCIDENT RESPONSE ENGINEER Office Visit [facility] [place] [address] [place] [address] Bessy Alcaraz APRN, ARAM #[address] [phone] documented as of this encounter Goals Goal Patient Goal Type Associated Problems Recent Progress Patient-Stated? Author Behavioral Health Behavioral Health On track( 023 4:31 PM CDT) Yes Agapito Cuenca, VENDOR MANAGER Note: I want to cope better [...] as of this encounter Visit Diagnoses Diagnosis Non-recurrent acute suppurative otitis media of both ears with spontaneous rupture of tympanic membranes- Primary documented in this encounter Additional Health Concerns Assessment Noted Time PHQ-9 Depression Total Score: 3 09/24/19 23 10:00 AM SECURITY INCIDENT RESPONSE ENGINEER documented as of this encounter Care Teams Signal Mechanic Relationship Specialty Start Date End Date Bessy Alcaraz APRN, ARAM #[address] [phone] PCP - General Advanced Practice Nurse 10/30/20 Bessy Alcaraz APRN, ARAM #2 [facility] [place] [address] Nurse Practitioner Advanced Practice Nurse 10/28/20 documented as of this encounter
--- OUTSIDE RECORDS SUMMARY | 2024-07-28 05:10 | XMS_ITS | Encounter Summary ---
Author Organization [facility] Address [address] [place] [address] Phone Care Team Providers Care Casket Assembler Metal Name Role Phone Bessy Alcaraz APRN, ARAM Unavailable + [phone] Bessy Alcaraz APRN, ARAM Primary Care Provid er Molly Costello APRN, FURNACE CLERK Unavailable Encounter Details Date Type Department Care Team (Late st Contact Info) Description 01/16/2024 Lab Requisition [facility] Laboratory Services [address] [place] [address] System, Referring Not In OR Social History Tobacco Use Types Packs/Day Years Used Date Smoking Tobacco: Never Smokeless Tobacco: Never Alcohol Use Standard Drinks/Week Comments Yes 0 (1 standard drink = 0.6 oz pur e alcohol) Rarely [facility] Utilities Answer Date Recorded In the past 12 months has [employer], gas, oil, or water [employer] threatened to shut off services in your home? No 11/27/2023 Social Connection and Isolation Panel [NHANES] A nswer Date Recorded In a typical week, how many times do you talk on the phone with family, friends, or neighbors? Patient declined 11/27/2023 How often do you get togethe r with friends or relatives? Twice a week 11/27/2023 How often do you attend sabianist or buddhism serv ices? Never 11/27/2023 Do you belong to any clubs o r organizations such as sabianist groups, unions, fraternal or athletic groups, or [...] Total Score - Questions 1-9 2 11/2023 [facility] - Occupational Stress Questionnaire Answer Date Recorded [...] place to sleep or slept in a nursing home (including now)? No 11/27/2023 Education Answer [...] st Contact Info) Description 08/19/2024 8:45 AM PAINT TRIMMER PIPE BOWLS Office Visit [facility] Medical [facility] [address] [place] [address] Bessy Alcaraz APRN, FURNACE CLERK #[address] [address] documented as of this encounter Goals Goal Patient Goal Type Associated Problems Recent Progress Patient-Stated? Author Behavioral Health Behavioral Health On track( 023 4:31 PM CDT) Yes Agapito Cuenca, BOTTOM CAGER Note: I want to cope better with grief and depression over mom's and other issues Goal/Objective: Decrease grieving. Anticipated Time Frame for Goal Completion: 6 months Goal Reviewed with: patient Readiness to change: Ready to change Department associated with goal: [facility] Steps to [...] Procedure Name Priority Date/Time Associated Diagnosis Comments QUANTIFERON-TB GOLD PLUS Routine 01/16/2024 1:55 PM CDT MMRV PANEL Routine 01/16/2024 1:55 PM CDT MUMPS IGG Routine 01/16/2024 1:55 PM CDT HERPES ZOSTER (VARICELLA) IGG Routine 01/16/2024 1:55 PM CDT RUBEOLA (MEASLES) IGG Routine 01/16/2024 1:55 PM CDT RUBELLA IMMUNITY IGG Routine 01/16/2024 1:55 PM CDT HEPATITIS B SURFACE ANTIBODY (HBSAB) Routine 01/16/2024 1:55 PM CDT documented in this encounter Results * HERPES ZOSTER (VARICELLA) IGG (01/16/2024 1:55 PM CDT) VARICELLA ZOSTER IGG 3.0 >=1.1 AI 01/17/2024 10:25 AM CDT [facility] Blood No Phlebotomy Charged / Unknown 01/16/2024 1:55 PM CDT 01/16/2024 3:19 PM CDT Narrative [facility] - 01/17/2024 10:25 AM CDT <= 0.8 Negative. ??No detectable VZV IgG antibody. 0.9 - 1.0 Equivocal >=1.1 Positive Antibody testing was performed by multiplex flow immunoassay on the Sitefly platform. us Referring Not In System IMMUNOLOGY ORDERABLES Fi nal Result [facility] [address] [place] [address], [place] * RUBEOLA (MEASLES) IGG (01/16/2024 1:55 PM CDT) MEASLES AB IGG 2.7 >=1.1 AI 01/17/2024 10:25 AM CDT [facility] Blood No Phlebotomy Charged / Unknown 01/16/2024 1:55 PM CDT 01/16/2024 3:19 PM CDT Narrative [facility] - 01/17/2024 10:25 AM CDT <= 0.8 Negative. ??No detectable Measles IgG antibody. 0.9 - 1.0 Equivocal >=1.1 Positive Antibody testing was performed by multiplex flow immunoassay on the BioPlex platform. us Referring Not In System IMMUNOLOGY ORDERABLES Fi nal Result [facility] [address] [place] [address], [place] * RUBELLA IMMUNITY IGG (01/16/2024 1:55 PM CDT) RUBELLA IMMUNITY Immune Immune, Invalid 01/17/2024 10:25 AM CDT [facility] Blood No Phlebotomy Charged / Unknown 01/16/2024 1:55 PM CDT 01/16/2024 3:19 PM CDT Narrative [facility] - 01/17/2024 10:25 AM CDT Antibody testing was performed by multiplex flow immunoassay on the BioPlex platform. us Referring Not In System CHEMISTRY ORDERABLES Fin al Result [facility] [address] [place] [address], [place] * MUMPS IGG (01/16/2024 1:55 PM CDT) Mumps Ab IgG 2.9 >=1.1 AI 01/17/2024 10:25 AM CDT [facility] Blood No Phlebotomy Charged / Unknown 01/16/2024 1:55 PM CDT 01/16/2024 3:19 PM CDT Narrative [facility] - 01/17/2024 10:25 AM CDT <= 0.8 Negative. ??No detectable Mumps IgG antibody. 0.9 - 1.0 Equivocal >=1.1 Positive Antibody testing was performed by multiplex flow immunoassay on the Sitefly platform. us Referring Not In System IMMUNOLOGY ORDERABLES Fi nal Result [facility] [address] [place] [address], * QUANTIFERON-TB GOLD PLUS (01/16/2024 1:55 PM CDT) NIL CONTROL 0.00 <8.01 IU/mL 01/18/2024 9:51 AM CDT [facility] TB ANTIGEN 1 0.00 <0.35 IU/mL 01/18/2024 9:51 AM CDT [facility] TB ANTIGEN 2 0.01 <0.35 IU/mL 01/18/2024 9:51 AM CDT [facility] MITOGEN CONTROL 10.00 >0.49 IU/mL 01/18/20 9:51 AM CDT [facility] INTEPRETATION TB NEGATIVE NEGATIVE, NEGATIVE (TB antigen response less than 25% of internal negative control value) 01/18/2024 9:51 AM CDT [facility] Comment:No immune response t o Mycobacterium tuberculosis antigens was noted. M. tuberculosis infection unlikely. Blood No Phlebotomy Charged / Unknown 01/16/2024 1:55 PM CDT 01/16/2024 3:19 PM CDT Narrative [facility] - 01/18/2024 9:51 AM CDT A POSITIVE QUANTIFERON-TB GOLD PLUS RESULT SHOULD NOT BE THE SOLE OR DEFINITIVE BASIS FOR DETERMINING INFECTION WITH M.TUBERCULOSIS. Diagnosing or excluding tuberculosis disease, and assessing the probability of LTBI, requires a combination of epidemiological, historical, medical and diagnostic findings (e.g., acid fast bacilli (AFB) smear and culture, chest xray) that should be taken into account when interpreting QFT-Plus results. Furthermore, the magnitude of the measured gamma interferon level cannot be correlated to stage or degree of infection, level of immune responsiveness, or likelihood for progression to active disease. The Nil control adjusts for background (e.g., elevated levels of circulating gamma interferon or presence of heterophile antibodies). The Mitogen control serves as an internal positive control and verifies each specimen tested can produce a gamma interferon response. Low mitogen may occur with insufficient lymphocytes, reduced lymphocyte activity due to improper specimen handling, filling/mixing of the mitogen tube, or inability of the patient's lymphocytes to generate gamma interferon. Infection with other Mycobacteria, including M. kansasii, M. szulgai, and M. marinum, may cause false positive results. A negative QuantiFERON-TB Gold Plus result does not preclude the possibility of M. tuberculosis infection or tuberculosis disease: false negative results can be due to incorrect blood sample collection/ improper handling of the specimen, stage of infection (e.g., specimen obtained prior to the development of cellular immune response), co-morbid conditions which affect immune function, or other individual immunological factors. The minimum number of lymphocytes required for a reliable test has not been established and may also be variable. Diagnostic testing for Mycobacterium tuberculosis using Interferon Gamma Release Assays should follow applicable published guidelines, including when testing in populations such as children, women, and HIV-infected or otherwise immunocompromised individuals. https://www.cdc.gov/tb/publications/guidelines/testing.htm us Referring Not In System IMMUNOLOGY ORDERABLES Fi nal Result Performing Organization Address [facility]/State/[facility] Co de Phone Number [facility] [address] [place] [address], * HEPATITIS B SURFACE ANTIBODY (HBSAB) (01/16/2024 1:55 PM CDT) HEPATITIS B SURFACE ANTIBODY <8.00 mIU/mL 01/16/2024 11:32 PM CDT [facility] Comment:Individual is consid ered not immune to HBV infection. Blood No Phlebotomy Charged / Unknown 01/16/2024 1:55 PM CDT 01/16/2024 3:19 PM CDT us Referring Not In System CHEMISTRY ORDERABLES Fin al Result [facility] [address] [place] [address], documented in this encounter Visit Diagnoses Not on filedocumented in this encounter Additional Health Concerns Assessment Noted Time PHQ-9 Depression Total Score: 2 09/26/19 24 1:32 PM PAINT TRIMMER PIPE BOWLS documented as of this encounter Care Teams Casket Assembler Metal Relationship Specialty Start Date End Date Bsesy Alcaraz APRN, ARAM [address] [address] PCP - General Advanced Practice Nurse 10/30/20 Bessy Alcaraz APRN, ARAM #[address] [address] Nurse Practitioner Advanced Practice Nurse 10/28/20 Molly Costello APRN, FURNACE CLERK [address] [place] [address] Nurse Practitioner Advanced Practice Nurse 10/05/23 documented as of this encounter
--- OUTSIDE RECORDS SUMMARY | 2024-07-28 05:10 | XMS_ITS | Encounter Summary ---
Author Organization [facility] Address [address] [place] [address] Phone Care Team Providers Care Oil Producer Name Role Phone Bessy Alcaraz APRN, CNP Unavailable +- [phone] Bessy Alcaraz APRN, CNP Primary Care Provid er Reason for Referral * Radiology Services (Routine) - Closed Specialty Diagnoses / Procedures Referred By Contac t Referred To Contact Radiology Diagnoses RUQ pain Procedures US ABDOMEN LIMITED LEVEL 3 THREE ORGAN Bessy Alcaraz APRN, CNP #[address] [address] Phone: tel: fax: [facility] Diagnostic Radiology [address] [place] [address] Phone: tel: fax: Referral ID Status Reason Start Date Expiration Date Visits Re quested Visits Authorized [id number] Closed 02/16/2023 1 1 * PT/OT/ST (Routine) - Closed Specialty Diagnoses / Procedures Referred By Contac t Referred To Contact Diagnoses Urinary incontinence, unspecified type Bessy Alcaraz APRN, CNP #[address] [address] Phone: tel: fax: [facility] [address] [facility] [address] Phone: tel: fax: Referral ID Status Reason Start Date Expiration Date Visits Re quested Visits Authorized [id number] Closed 02/16/2023 1 1 Scheduling Instructions Cee is being referred to pelvic floor therapy or other specialist in patient's insurance network for incontinence after childbirth. See below for Cee's current medications, allergies and problem list. CURRENT MEDS: Current Outpatient Medications: atomoxetine 80 MG Capsule, Take 1 Capsule by mouth daily. (Patient not taking: Reported on 09/23/2022), Disp: 30 Capsule, Rfl: 0 sertraline (ZOLOFT) 100 MG Tablet, Take 100 mg by mouth daily., Disp: , Rfl: No current facility-administered medications for this visit. ALLERGIES: No Known Allergies PROBLEM LIST: Patient Active Problem List: MDD (major depressive disorder), recurrent episode, moderate (HCC) Generalized anxiety disorder PTSD (post-traumatic stress disorder) Disordered eating Reason for Visit * Reason Comments ADHD She is here today fo r adhd medication and physical therapy. Encounter Details Date Type Department Care Team (Late st Contact Info) Description 02/16/2023 3:30 PM CDT Office Visit [facility] [address] [place] [address] Bessy Alcaraz APRN, ARAM [address] [address] Urinary incontinence, unspecified type (Primary Dx); Attention deficit hyperactivity disorder (ADHD), combined type; RUQ pain Discharge Disposition: Discharged to home or Selfcare [...] PM CDT documented as of this encounter Last Filed Vital Signs Vital Sign Reading Time Taken Comments Blood Pressure 122/74 02/16/2023 3:23 PM CDT Pulse 88 02/16/2023 3:23 PM CDT Temperature 36.3 ??C (97.3 ??F) 02/16/2023 3:23 PM CD T Respiratory Rate 14 02/16/2023 3:23 PM CDT Oxygen Saturation 98% 02/16/2023 3:23 PM CDT Inhaled Oxygen Concentration - - Weight 84.1 kg (185 lb 8 oz) 02/16/2023 3:23 PM CDT Height 152.4 cm (5') 02/16/2023 3:23 PM CDT Body Mass Index 36.23 02/16/2023 3:23 PM CDT documented in this encounter Progress Notes * Aida Daigle - 02/16/2023 3:30 PM CDT Ceecarlos March, 27 y.o., female is here for ADHD (She is here today for adhd medication and physicaltherapy.) Medication Refills: Patient reports/denies need for medication refills. Orders Pended: no Requested Prescriptions No prescriptions requested or ordered in this encounter Home Medications Medication Sig Start Date End Date Taking? Authorizing Provider atomoxetine 80 MG Capsule Take 1 Capsule by mouth daily. Patient not taking: Reported on 09/23/2022 04/15/22 Bessy Alcaraz APRN, GARAGE DOOR HANGER sertraline (ZOLOFT) 100 MG Tablet Take 100 mg by mouth daily. Yes Provider, Historical, MD There are no discontinued medications. I have [...] Pap Smear Never done ??? SARS-COV-2 Immunization (4 - Pfizer series) 09/14/2021 ??? Hepatitis C Virus (HCV) Screening 03/29/2023 Orders Pended: no The following BPA's have been addressed with the patient today: Mammogram, Pap, Smoking, Depression, Fall Risk, Nutrition, Advanced Care Planning and HCC * Bessy Alcaraz APRN, ARAM - 02/16/2023 3:30 PM CDT [facility] [address]2 [facility] [address] Dept: [phone] Dept Loc: [phone] Loc Patient: Cee March : 1995 Sex: female Subjective Subjective: HPI: Cee March presents for ADHD (She is here today for adhd medication and physical therapy.) Patient presents today to discuss her ADHD medication and PT. She just gave to a little girl 2 months ago. She is not yet back to work. She would like to resume her atomoxetine. She is planning on going back to work soon. She does havea lot of brain fog, difficulty concentrating, and completing tasks. She is on sertraline for anxiety and depression. She is not currently . She would like to be referred for pelvic floor therapy. She reports urinary leaking, pain with intercourse and post intercourse. She also reports a increase in her abdominal pain after eating. She has had this prior to . She states that she did not have it during her . She describes it as a dull persistent pain after eating. Denies vomiting, diarrhea and constipation. Past Medical History Positives Diagnosis Date ??? [...] Tablet Take 100 mg by mouth daily. No current facility-administered medications on file prior to visit. No Known Allergies Past Surgical History: Procedure Laterality Date ??? COLONOSCOPY 2016 [place] ??? COLONOSCOPY Left 12/27/2018 Procedure: COLONOSCOPY-HEMORRHOIDS; Surgeon: Scooby Cuellar MD; Location: [facility]; Service: Gastroenterology ??? ORAL SURGERY PROCEDURE Abcess tooth removed and wisdom teeth ??? TONSILLECTOMY Review of Systems Constitutional: Positive for appetite change. Negative for activity change, chills, diaphoresis, fatigue and fever. Respiratory: Negative for cough, chest tightness, shortness of breath and wheezing. Cardiovascular: Negative for chest pain, palpitations and leg swelling. Gastrointestinal: Positive for abdominal pain and nausea. Negative for abdominal distention, anal bleeding, blood in stool, constipation, diarrhea, rectal pain and vomiting. Genitourinary: Positive for frequency. Negative for difficulty urinating, dysuria, flank pain and urgency. Neurological: Negative for dizziness, light-headedness and headaches. Psychiatric/Behavioral: Positive for decreased concentration. Negative for agitation, behavioral problems, confusion, dysphoric mood, hallucinations, self- injury, sleep disturbance and suicidal ideas. The patient is not nervous/anxious and is not hyperactive. Objective Objective: BP 122/74 (BP Location: Left Arm, BP Position: Sitting, BP Cuff Size: Regular) Pulse 88 Temp 97.3 ??F (36.3 ??C) (Temporal) Resp 14 Ht 5' (1.524 m) Wt 185 lb 8 oz (84.1 kg) LMP 04/04/2020(Exact Date) SpO2 98% BMI 36.23 kg/m?? Physical Exam Vitals and nursing note reviewed. Constitutional: General: She is not in acute distress. Appearance: Normal appearance. She is well-developed. She is not diaphoretic. HENT: Head: Normocephalic and atraumatic. Right Ear: External ear normal. Left Ear: External ear normal. Eyes: Conjunctiva/sclera: Conjunctivae normal. Pupils: Pupils are equal, [...] Palpations: Abdomen is soft. Tenderness: There is abdominal tenderness in the right upper quadrant and epigastric area. There isno guarding or rebound. Negative signs include McBurney's sign. Musculoskeletal: General: Normal range of motion. Cervical back: Normal range of motion. Skin: General: Skin is warm and dry. Capillary Refill: Capillary refill takes less than 2 seconds. Neurological: Mental Status: She is alert and oriented to person, place, and time. Mental status is at baseline. Cranial Nerves: No cranial nerve deficit. Psychiatric: Mood and Affect: Mood normal. Behavior: Behavior normal. Thought Content: Thought content normal. Judgment: Judgment normal. Medical Decision Making: Assessment & Plan Diagnoses and all orders for this visit: Urinary incontinence, unspecified type - EXTERNAL PHYSICAL THERAPY REFERRAL; Future - POCT UA AUTOMATED W/O MICRO - CULTURE, URINE; Future - CULTURE, URINE Attention deficit hyperactivity disorder (ADHD), combined type - Atomoxetine HCl 80 MG Capsule; Take 1 Capsule by mouth daily. - atomoxetine (STRATTERA) 40 MG Capsule; Take 1 Capsule by mouth daily for 7 days. RUQ pain - US ABDOMEN LIMITED LEVEL 3 THREE ORGAN; Future Other orders - sertraline (ZOLOFT) 100 MG Tablet; Take 100 mg by mouth daily. Referral for PT placed for pelvic therapy. Patient would like to go to [place]. Urinalysis today to rule out UTI. Discussed with patient regarding starting Strattera. Will start her back on 40 mg then increased to 80 mg in 2 weeks. Patient having right upper quadrant discomfort. Will send for ultrasound. Follow-up in 6 weeks. Return in about 6 weeks (around 03/30/2023). documented in this encounter Plan of Treatment Upcoming Encounters Date Type Department Care Team (Late st Contact Info) Description 08/19/2024 8:45 AM ASSIGNMENT DESK EDITOR Office Visit [facility] Medical [facility] [address] [place] [address] Bessy Alcaraz APRN, ARAM [address] [phone] Scheduled Orders Name Type Priority Associated Diagnoses Orde r Schedule US ABDOMEN LIMITED LEVEL 3 THREE ORGAN Imaging Routine RUQ pain Expected: 02/16/2023, Expires: 08/19/2023 Scheduled Referrals Name Type Priority Associated Diagnoses Orde r Schedule EXTERNAL PHYSICAL THERAPY REFERRAL Outpatient Referral Routine Urinary incontinence, unspecified type Expected: 02/16/2023, Expires: 02/17/2024 documented as of this encounter Goals Goal Patient Goal Type Associated Problems Recent Progress Patient-Stated? Author Behavioral Health Behavioral Health On track( 023 4:31 PM CDT) Yes Agapito Cuenca, FORGER HELPER Note: I want to cope better with grief and depression over mom's and other issues Goal/Objective: Decrease grieving. Anticipated Time Frame for Goal Completion: 6 months Goal Reviewed with: patient Readiness to change: Ready to change Department associated with goal: [facility] Steps to achieve [...] Procedure Name Priority Date/Time Associated Diagnosis Comments CULTURE, URINE Routine 02/17/2023 11:21 AM CDT Urinary incontinence, unspecified type POCT UA AUTOMATED W/O MICRO Routine 02/16/2023 3:55 PM CDT Urinary incontinence, unspecified type documented in this encounter Results * CULTURE, URINE (02/17/2023 11:21 AM CDT) [facility] CULTURE RESULTS MIXED GROWTH OF ONE OR MORE DISTAL URETHRAL CONTAMINANTS 02/18/2023 4:41 PM CDT [facility] Culture URINE SPECIMEN COLLECTION, CLEAN CATCH / Unknown Non-Phlebotomy Collection / Unknown 02/17/2023 11:21 AM CDT 02/17/2023 11:21 AM CDT Bessy Alcaraz APRN, ARAM MICROBIOLOGY - GENER AL ORDERABLES Final Result Performing Organization Address City/State/[facility] Co de Phone Number [facility] [address] [place] [address], * (ABNORMAL) POCT UA AUTOMATED W/O MICRO (02/16/2023 3:55 PM CDT) [facility] POC UA SPECIFIC GRAVITY 1.020 URINE PH 6.0 5.0 - 9.0 POC URINE LEUKOCYTES 500 /uL(A) Negative Bill/uL POC URINE NITRITE Negative Negative POC URINE PROTEIN Negative Negative mg/dL POC URINE GLUCOSE Norm Negative, Norm mg/dL POC URINE KETONE Negative Negative mg/dL POC URINE UROBILINOGEN Norm Norm, 0.2 E.U./dL (mg/dL), 1 E.U./dL (mg/dL) POC URINE BILIRUBIN Negative Negative mg/dL POC URINE BLOOD INSTRUMENT Negative Negative Charlie/uL POC URINE COLOR Yellow POC URINE CLARITY Cloudy Urine 02/16/2023 3:55 PM CDT Bessy Alcaraz APRN, GARAGE DOOR HANGER POINT OF CARE TESTIN G (MANUAL) Final Result documented in this encounter Visit Diagnoses Diagnosis Urinary incontinence, unspecified type- Primary Attention deficit hyperactivity disorder (ADHD), combined type RUQ pain Abdominal pain, right upper quadrant documented in this encounter Additional Health Concerns Assessment Noted Time PHQ-9 Depression Total Score: 3 09/24/19 23 10:00 AM ASSIGNMENT DESK EDITOR documented as of this encounter Care Teams Oil Producer Relationship Specialty Start Date End Date Bessy Alcaraz APRN, ARAM #[address] [address] PCP - General Advanced Practice Nurse 10/30/20 Bessy Alcaraz APRN, ARAM #[address] [address] Nurse Practitioner Advanced Practice Nurse 10/28/20 documented as of this encounter
--- OUTSIDE RECORDS SUMMARY | 2024-07-28 05:10 | XMS_ITS | Encounter Summary ---
Author Organization [email or web address] Care Team Providers Care Hides Inspector Name Role Phone eBssy Alcaraz APRN, CNP Unavailable [phone] Bessy Alcaraz APRN, CNP Primary Care Provid er Encounter Details Date Type Department Care Team (Latest Contact Info) Description 07/27/2023 Travel Social History Tobacco Use Types Packs/Day [...] things Not at all 07/27/2023 11:11 AM Lana Staples CMA Feeling down, depressed, or hopeless Not at all 07/27/2023 11:11 AM Lana Staples CMA * Over the past 2 weeks, how often have you been bothered by any of the following problems? Question Answer Date of Assessment Author Patient Health Questionnaire -2 Score 0 07/27/2023 11:11 AM Lana Staples SAWYER documented as of this encounter Plan of Treatment Upcoming Encounters Date Type Department Care Team (Late st Contact Info) Description 08/19/2024 8:45 AM DISTRIBUTION TECH Office Visit [facility] [address] [place] [address] Bessy Alcaraz APRN, ARAM [address] [facility] [place] [address] documented as of this encounter Goals Goal [...] Ready to change Department associated with goal[facility] Steps to achieve goal: [...] Total Score: 3 09/24/19 23 10:00 AM DISTRIBUTION TECH documented as of this encounter Care Teams Hides Inspector Relationship Specialty Start Date End Date Bessy Alcaraz APRN, CNP #[address] [address] PCP - General Advanced Practice Nurse 10/30/20 Bessy Alcaraz APRN, CNP #[address] [address] Nurse Practitioner Advanced Practice Nurse 10/28/20 documented as of this encounter
--- OUTSIDE RECORDS SUMMARY | 2024-07-28 05:10 | XMS_ITS | Encounter Summary ---
Author Organization [facility] Address [address] [place] [address] Phone Care Team Providers Care Restaurant Shift Supervisor Name Role Phone Bessy Alcaraz APRN, CNP Unavailable + [phone] Bessy Alcaraz APRN, CNP Primary Care Provid er Reason for Visit * Reason Comments Medication Management She is here to dis cuss her medication dose. She feels like she needs a higher dose. Encounter Details Date Type Department Care Team (Late st Contact Info) Description 08/29/2023 8:45 AM MULTIFOCAL BUTTON INSPECTOR Office Visit [facility] - Family Medicine [facility] [address] [place] [address] Bessy Alcaraz APRN, CNP #[address] [address] Attention deficit hyperactivity disorder (ADHD), combined type (Primary Dx); Irregular menses; BMI 38.0-38.9,adult Discharge Disposition: Discharged to home or Selfcare Social History Tobacco Use Types Packs/Day Years Used Date Smoking Tobacco: Never Smokeless Tobacco: Never Tobacco Cessation:Counseling Given: Yes Alcohol Use Standard Drinks/Week Comments Yes 0 (1 standard drink = 0.6 oz pur e alcohol) Rarely [facility] Utilities Answer Date Recorded In the past 12 months has [employer] electric, gas, oil, or water company threatened [...] re latives? Once a week 08/29/2023 Attends [employer] Not on file 08/29 Active Member [...] Total Score - Questions 1-9 3 09/2022 [facility] Occupat ional [facility] - Occupational Stress Questionnaire Answer Date [...] Sign Reading Time Taken Comments Blood Pressure 112/74 08/29/2023 8:48 AM MULTIFOCAL BUTTON INSPECTOR Pulse 75 08/29/2023 8:48 AM MULTIFOCAL BUTTON INSPECTOR Temperature 36.3 ??C (97.3 ??F) 08/29/2023 8:48 AM CS T Respiratory Rate 14 08/29/2023 8:48 AM MULTIFOCAL BUTTON INSPECTOR Oxygen Saturation 98% 08/29/2023 8:48 AM MULTIFOCAL BUTTON INSPECTOR Inhaled Oxygen Concentration - - Weight 89.9 kg (198 lb 3.2 oz) 08/29/2023 8:48 A M MULTIFOCAL BUTTON INSPECTOR Height 152.4 cm (5') 08/29/2023 8:48 AM MULTIFOCAL BUTTON INSPECTOR Body Mass Index 38.71 08/29/2023 8:48 AM MULTIFOCAL BUTTON INSPECTOR documented in this encounter Functional Status * Within the last year, have you been humiliated or emotionally abused in other ways by your partner or ex-partner? Answer Date of Assessment Author No 08/29/2023 8:47 AM MULTIFOCAL BUTTON INSPECTOR [facility] * Within the last year, have you been afraid of your partner or ex-partner? Answer Date of Assessment Author No 08/29/2023 8:47 AM MULTIFOCAL BUTTON INSPECTOR [facility] * Q1: How often do you have a drink containing alcohol? Answer Date of Assessment Author Monthly or less 08/29/2023 8:47 AM MULTIFOCAL BUTTON INSPECTOR [facility] * Q2: How many drinks containing alcohol do you have on a typical day when you are drinking? Answer Date of Assessment Author Patient does not drink 08/29/2023 8:47 AM MULTIFOCAL BUTTON INSPECTOR [facility] [place] [facility] documented as of this encounter Progress Notes * Aida Daigle - 08/29/2023 8:45 AM CST Cee March, 27 y.o., female is here for Medication Management (She is here to discuss her medication dose. She feels like she needs a higher dose.) Medication Refills: Patient reports/denies need for medication refills. Orders Pended: no Requested Prescriptions No prescriptions requested or ordered in this encounter Home Medications Medication Sig Start Date End Date Taking? Authorizing Provider amoxicillin (AMOXIL) 875 MG Tablet TAKE 1 TABLET BY MOUTH TWICE DAILY FOR 7 DAYS Patient not taking: Reported on 08/29/2023 07/24/23 ProviderRaymundo MD amphetamine-dextroamphetamine (Adderall XR) 15 MG CAPSULE SR 24 HR Take 1 Capsule by mouth every morning. 08/18/23 Yes Bessy Alcaraz APRN, ARAM sertraline (ZOLOFT) 100 MG Tablet Take 100 [...] Risk, Nutrition, Advanced Care Planning and HCC IFOCAL BUTTON INSPECTOR * Bessy Alcaraz APRN, TRANSPORTATION CLERK - 08/29/2023 8:45 AM CST [facility] - [facility]ILY [facility] [address] [facility] [address] Dept: [phone] Dept Loc: [phone] Loc Patient: Cee March : 1995 Sex: female Subjective Subjective: HPI: Cee March presents for Medication Management (She is here to discuss her medication dose. She feels like she needs a higher dose.) . Patient presents today to discuss ADHD medication and fatigue. She has noted improvement of focus at work. She does not that she still needs some caffeine to improve the medication. She states she feels like the Adderall has helped more than the other medications. She is interested in a dose increase. She would also like to discuss possible lab work due to menstrual changes. She reports that her menstrual cycle has been irregular which is abnormal for her. She reports that she will have a. Every 2 weeks and then not want for 6 weeks. She also reports that she will have heavy and light flow. She did give to a healthy baby girl in November of last year. Reports the menstrual changes occurredrecently. She has not . 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 Past Medical History Positives Diagnosis Date ??? Abdominal pain ??? Anemia ??? Anxiety and depression ??? Gastritis ??? GERD (gastroesophageal reflux disease) ??? Heart murmur 2019 just found, goes to doctor for this 01/08/19 ??? IBS (irritable bowel syndrome) ??? TMJ (temporomandibular joint syndrome) Current Outpatient Medications on File Prior to Visit Medication Sig Dispense Refill ??? amoxicillin (AMOXIL) 875 MG Tablet TAKE 1 TABLET BY MOUTH TWICE DAILY FOR 7 DAYS (Patient not taking: Reported on 08/29/2023) ??? sertraline (ZOLOFT) 100 MG Tablet Take 100 mg by mouth daily. (Patient not taking: Reported on 06/13/2023) ??? [DISCONTINUED] Vyvanse 30 MG Capsule Take 1 Capsule by mouth daily. 14 Capsule 0 No current facility-administered medications on file prior to visit. No Known Allergies Past Surgical History: Procedure Laterality Date ??? COLONOSCOPY 2017 [place] ??? COLONOSCOPY Left 12/27/2018 Procedure: COLONOSCOPY-HEMORRHOIDS; Surgeon: Scooby Cuellar MD; Location: [facility]; Service: Gastroenterology ??? ORAL SURGERY PROCEDURE Abcess tooth removed and wisdom teeth ??? TONSILLECTOMY Review of Systems Constitutional: Positive for fatigue. Negative for activity change, appetite change, chills and fever. Respiratory: Negative for cough, chest tightness, shortness of breath and wheezing. Cardiovascular: Negative for chest pain, palpitations and leg swelling. Gastrointestinal: Negative for constipation, diarrhea, nausea and vomiting. Genitourinary: Positive for menstrual problem. Negative for decreased urine volume, difficulty urinating, vaginal bleeding, vaginal discharge and vaginal pain. Neurological: Negative for dizziness, light-headedness and headaches. Psychiatric/Behavioral: Positive for decreased concentration. Negative for agitation, behavioral problems, confusion, dysphoric mood, hallucinations, self- injury, sleep disturbance and suicidal ideas. The patient is not nervous/anxious and is not hyperactive. Objective Objective: BP 112/74 (BP Location: Left Arm, BP Position: Sitting, BP Cuff Size: Regular) Pulse 75 Temp 97.3 ??F (36.3 ??C) (Temporal) Resp 14 Ht 5' (1.524 m) Wt 198 lb 3.2 oz (89.9 kg) LMP 05/30/2023 (Exact Date) SpO2 98% BMI 38.71 kg/m?? Physical Exam Vitals and nursing note [...] HR; Take 1 Capsule by mouth everymorning. Irregular menses - THYROID STIMULATING HORMONE (TSH); Future - ESTRADIOL; Future - PROGESTERONE; Future - FREE AND TOTAL TESTOSTERONE; Future - DEHYDROEPIANDROSTERONE SULFATE (DHEA-S); Future - LUTEINIZING HORMONE (LH); Future - FOLLICLE STIMULATING HORMONE (FSH); Future BMI 38.0-38.9,adult - CMP (COMPREHENSIVE METABOLIC PANEL); Future - LIPID PANEL; Future - COMPLETE BLOOD COUNT (CBC) WITH DIFF; Future - THYROID STIMULATING HORMONE (TSH); Future - HEMOGLOBIN A1C W/ ESTIMATED GLUCOSE; Future - VITAMIN B12; Future - VITAMIN D, 25 HYDROXY TOTAL; Future Will increase Adderall to 25 mg. Discussed with patient regarding irregular menses. Lab orders as above. Follow-up in 4 weeks. Return in about 4 weeks (around 09/26/2023). IFOCAL BUTTON INSPECTOR documented in this encounter Plan of Treatment Upcoming Encounters Date Type Department Care Team (Late st Contact Info) Description 08/19/2024 8:45 AM MULTIFOCAL BUTTON INSPECTOR Office Visit [facility] - Family [facility] [address] [place] [address] Bessy Alcaraz APRN, TRANSPORTATION CLERK #[address] [address] documented as of this encounter Goals Goal Patient Goal Type Associated Problems Recent Progress Patient-Stated? Author Behavioral Health Behavioral Health On track( 023 4:31 PM CDT) Yes Agapito Cuenca, ENGINEERING OFFICER Note: I want to cope better with grief and depression over mom's and other issues Goal/Objective: Decrease grieving. Anticipated Time Frame for Goal Completion: 6 months Goal Reviewed with: patient Readiness to change: Ready to change Department associated with goal: [facility] Steps to [...] to grief. documented as of this encounter Results * DEHYDROEPIANDROSTERONE SULFATE (DHEA-S) (08/29/2023 9:45 AM MULTIFOCAL BUTTON INSPECTOR) DHEA Sulfate 226 30 - 512 ug/dL [facility] ARCH [id number] A 08/29/2023 8:53 PM MULTIFOCAL BUTTON INSPECTOR [facility] Blood Venipuncture / Unknown 08/29/2023 9:45 AM MULTIFOCAL BUTTON INSPECTOR 08/29/2023 9:45 AM MULTIFOCAL BUTTON INSPECTOR us Bessy Alcaraz EMBLEM DRAWER IN, TRANSPORTATION CLERK CHEMISTRY ORDERABLES Final Result [facility] [address] [place] [address], * VITAMIN D, 25 HYDROXY TOTAL (08/29/2023 9:45 AM MULTIFOCAL BUTTON INSPECTOR) VITAMIN D, 25 HYDROX 19 ng/mL 08/29/2023 1:54 PM MULTIFOCAL BUTTON INSPECTOR [facility] Blood Venipuncture / Unknown 08/29/2023 9:45 AM MULTIFOCAL BUTTON INSPECTOR 08/29/2023 9:45 AM MULTIFOCAL BUTTON INSPECTOR Narrative [facility] - 08/29/2023 1:54 PM MULTIFOCAL BUTTON INSPECTOR Published reference ranges for Vitamin D vary depending on time and place and method of testing, and on patient's age, sex, ethnicity and levels of other measured analytes such as parathormone, calcium and phosphorus. ??The result should be evaluated in conjunction with clinical findings and suspicions. [employer] of Medicine and Endocrine Clinical Practice Guidelines: Status Vitamin D levels (ng/mL) Deficient <=20 At risk of inadequacy 21-29 Sufficient 30-100 Centers of Disease Control and Prevention Guidelines: Status Vitamin D levels (ng/mL) Deficient <13 At risk of inadequacy 13-19 Sufficient 20-50 Possibly harmful >50 References: [employer] of Medicine, 2010 Dietary reference intakes for calcium and vitamin D. [place]: ??The National Academies Press. Jaron M, Denilson N, Paul CAAL, et al., Evaluation, treatment, and prevention of Vitamin D deficiency: an Endocrinology Clinical Practice Guideline. JCEM 2011 96: 7 4503-1455. Yakov A, Ranjeet C, Corinne D, et al., Vitamin D Status: ??[place], 2000- 6, [facility] data brief, no. 59, MD [place]: ??National Center for Health Statistics. 2010. us Bessy Alcaraz EMBLEM DRAWER IN, TRANSPORTATION CLERK CHEMISTRY ORDERABLES Final Result [facility] [address] [place] [address] * VITAMIN B12 (08/29/2023 9:45 AM MULTIFOCAL BUTTON INSPECTOR) VITAMIN B12 728 213 - 816 pg/mL 08/29/2023 1:23 PM MULTIFOCAL BUTTON INSPECTOR [facility] Blood Venipuncture / Unknown 08/29/2023 9:45 AM MULTIFOCAL BUTTON INSPECTOR 08/29/2023 9:45 AM MULTIFOCAL BUTTON INSPECTOR Bessy Alcaraz EMBLEM DRAWER IN, TRANSPORTATION CLERK CHEMISTRY ORDERABLES Final Result [facility] [address] [place] [address] * HEMOGLOBIN A1C W/ ESTIMATED GLUCOSE (08/29/2023 9:45 AM MULTIFOCAL BUTTON INSPECTOR) HGB-A1C 5.4 4.0 - 6.0 % 08/29/2023 12:39 PM MULTIFOCAL BUTTON INSPECTOR [facility] Est Average Glucose 108.3 mg/dL 08/29/2023 12:39 PM MULTIFOCAL BUTTON INSPECTOR [facility] Blood Venipuncture / Unknown 08/29/2023 9:45 AM MULTIFOCAL BUTTON INSPECTOR 08/29/2023 9:45 AM MULTIFOCAL BUTTON INSPECTOR Narrative [facility] - 08/29/2023 12:39 PM MULTIFOCAL BUTTON INSPECTOR HEMOGLOBIN A1C: DIABETIC PATIENTS: WELL-CONTROLLED: ?? 6.2 - 7.0 INTERMEDIATE WELL-CONTROLLED: ??7.0 - 9.0 POORLY-CONTROLLED: ??>9.0 us Bessy Tayloreck EMBLEM DRAWER IN, TRANSPORTATION CLERK CHEMISTRY ORDERABLES Final Result Performing Organization Address City/[facility] Co de Phone Number [facility] [address] [place] [address] * THYROID STIMULATING HORMONE (TSH) (08/29/2023 9:45 AM MULTIFOCAL BUTTON INSPECTOR) TSH 1.486 0.300 - 5.000 mIU/L 08/29/2023 1:08 PM MULTIFOCAL BUTTON INSPECTOR [facility] Blood Venipuncture / Unknown 08/29/2023 9:45 AM MULTIFOCAL BUTTON INSPECTOR 08/29/2023 9:45 AM MULTIFOCAL BUTTON INSPECTOR us Bessy Strohbeck EMBLEM DRAWER IN, TRANSPORTATION CLERK CHEMISTRY ORDERABLES Final Result Performing Organization Address City/[facility]/ZIP Co de Phone Number [facility] [address] [place] [address] * LIPID PANEL (08/29/2023 9:45 AM MULTIFOCAL BUTTON INSPECTOR) CHOLESTEROL 159 <200 mg/dL 08/29/2023 12:55 PM MULTIFOCAL BUTTON INSPECTOR [facility] TRIGLYCERIDES 90 <150 mg/dL 08/29/2023 12:55 PM MULTIFOCAL BUTTON INSPECTOR [facility] HDL CHOLESTEROL 63 >40 mg/dL 12:55 PM [facility] LDL 78 <130 mg/dL 08/29/2023 12:55 PM MULTIFOCAL BUTTON INSPECTOR [facility] VLDL 18 10 - 50 mg/dL 08/29/2023 12:55 PM [facility] CHOL/HDL RATIO 2.5 0.0 - 4.4 08/29/2023 12:55 PM [facility] NON-HDL CHOLESTEROL 96 <130 mg/dL 08/29/2023 12:55 PM [facility] IS THE PATIENT REQUIRED TO BE FASTING? Yes 08/29/2023 12:55 PM [facility] HAS THE PATIENT BEEN FASTING? Yes 08/29/2023 12:55 PM [facility] Blood Venipuncture / Unknown 08/29/2023 9:45 AM MULTIFOCAL BUTTON INSPECTOR 08/29/2023 9:45 AM MULTIFOCAL BUTTON INSPECTOR us Bessy Alcaraz EMBLEM DRAWER IN, TRANSPORTATION CLERK CHEMISTRY ORDERABLES Final Result [facility] [address] [place] [address] * (ABNORMAL) CMP (COMPREHENSIVE METABOLIC PANEL) (08/29/2023 9:45 AM MULTIFOCAL BUTTON INSPECTOR) SODIUM 139 136 - 145 mmol/L 08/29/2023 12:55 PM MULTIFOCAL BUTTON INSPECTOR [facility] POTASSIUM 3.9 3.5 - 5.1 mmol/L 08/29/2023 12:55 PM [facility] CHLORIDE 110(H) 98 - 107 mmol/L 08/29/2023 12:55 PM [facility] CO2, VENOUS 21(L) 22 - 30 mmol/L 08/29/2023 12:55 PM [facility] ANION GAP 11.9 <18.0 mmol/L 08/29/2023 12:55 PM [facility] GLUCOSE 84 70 - 99 mg/dL 08/29/2023 12:55 PM [facility] BUN 8 5 - 18 mg/dL 08/29/2023 12:55 PM [facility] CREATININE, BLOOD 0.66 0.60 - 1.00 mg/dL 08/29/2023 12:55 PM [facility] BUN/CREATININE RATIO 12 12 - 20 ratio 08/29/2023 12:55 PM [facility] TOTAL PROTEIN 7.6 6.3 - 8.2 g/dL 08/29/2023 12:55 PM [facility] ALBUMIN 4.3 3.5 - 5.0 g/dL 08/29/2023 12:55 PM [facility] A/G RATIO 1.3 1.0 - 2.2 08/29/2023 12:55 PM [facility] CALCIUM 8.9 8.7 - 10.5 mg/dL 08/29/2023 12:55 PM [facility] T BILI 0.2 0.2 - 1.2 mg/dL 08/29/2023 12:55 PM [facility] SGOT (AST) 12 5 - 34 U/L 08/29/2023 12:55 PM [facility] SGPT (ALT) 15 0 - 55 U/L 08/29/2023 12:55 PM [facility] ALKALINE PHOSPHATASE 105 40 - 150 U/L 08/29/2023 12:55 PM [facility] IS THE PATIENT REQUIRED TO BE FASTING? No 08/29/2023 12:55 PM [facility] GFR, ESTIMATED >60 >=60 08/29/2023 12:55 PM [facility] Comment: Creatinine Clearance is the preferred criteria for selecting drug dose adjustments in renally impaired patients. ??The GFR is provided as additional pertinent clinical information. GFR is reported in mL/min/1.73 sq m. Calculation based on the Chronic Kidney Disease Epidemiology Collaboration (CKD- EPI) equation refit without adjustment for race. GFR, EST. >60 >=60 024 12:55 PM MULTIFOCAL BUTTON INSPECTOR [facility] GFR, EST. NONAFRICAN >60 >=60 08/29/2023 12:55 PM MULTIFOCAL BUTTON INSPECTOR [facility] Blood Venipuncture / Unknown 08/29/2023 9:45 AM MULTIFOCAL BUTTON INSPECTOR 08/29/2023 9:45 AM MULTIFOCAL BUTTON INSPECTOR us Bessy Alcaraz APRN, CNP CHEMISTRY ORDERABLES Final Result [facility] [address] [place] [address] documented in this encounter Visit Diagnoses Diagnosis Attention deficit hyperactivity disorder (ADHD), combined type- Primary Irregular menses Irregular menstrual cycle BMI 38.0-38.9,adult Body Mass Index 38.0-38.9, adult documented in this encounter Additional Health Concerns Assessment Noted Time PHQ-9 Depression Total Score: 3 09/24/19 23 10:00 AM MULTIFOCAL BUTTON INSPECTOR documented as of this encounter Care Teams Restaurant Shift Supervisor Relationship Specialty Start Date End Date Bessy Alcaraz APRN, CNP #[address] [address] PCP - General Advanced Practice Nurse 10/30/20 Bessy Alcaraz APRN, CNP #[address] [address] Nurse Practitioner Advanced Practice Nurse 10/28/20 documented as of this encounter
--- OUTSIDE RECORDS SUMMARY | 2024-07-28 05:10 | XMS_ITS | Encounter Summary ---
Author Organization [facility] Address [address] [place] [address] Phone Care Team Providers Care Cinder Man Name Role Phone Bessy Alcaraz APRN, ARAM Unavailable + [phone] Bessy Alcaraz APRN, ARAM Primary Care Provid er Molly Costello APRN, SEALING AND CANCELING MACHINE OPERATOR Unavailable Reason for Referral * Radiology Services (Routine) - Closed Specialty Diagnoses / Procedures Referred By Edmund abrams Referred To Contact Radiology Diagnoses Abnormal uterine bleeding Procedures US PELVIS COMPLETE WITH TRANSVAGINAL Trini Kim MD [address] [place] [address] [address] K[address] [place] [address] Phone: tel: fax: Referral ID Status Reason Start Date Expiration Date Visits Re quested Visits Authorized [id number] Closed 06/04/2024 1 1 STRUCTURE BUILDER AND SERVICER Encounter Details Date Type Department Care Team (Late st Contact Info) Description 06/04/2024 Transcribe Orders [facility] Central Scheduling [address] [place] [address] Trini Kim MD [address] [place] [address] [address] KAY [address] [place] [address] Abnormal uterine bleeding (Primary Dx) Social History Tobacco Use Types Packs/Day Years Used Date Smoking Tobacco: Never Smokeless Tobacco: Never Alcohol Use Standard Drinks/Week Comments Yes 0 (1 standard drink = 0.6 oz pur e alcohol) Rarely [facility] Utilities Answer Date Recorded In the [...] declined 06/03/2024 How often do you attend mormonism or latter day serv ices? Patient declined 06/03/2024 Do you belong to any clubs o r organizations such as mormonism groups, unions, fraternal or athletic groups, or [...] Total Score - Questions 1-9 0 05/24 [facility] [place] of Occupat ional Health - Occupational Stress [...] place to sleep or slept in a half-way (including now)? No 11/27/2023 Housing Stability Vital Sign Answer Harley e Recorded In the last 12 months, was t here a time when you were not able to pay the mortgage or rent on time? No 06/03/2024 Number of Times Moved in the Last Year Not on fi le 06/03/2024 At any time in the past 12 [facility], were you homeless or living in a half-way (including now)? No 06/03/2024 Education Answer Date [...] things Not at all 06/04/2024 7:38 AM Cynthia Patel, RMA Feeling down, depressed, or hopeless Not at all 06/04/2024 7:38 AM CLAY STRUCTURE BUILDER AND SERVICER Cynthia Chun RMA * Over the past 2 weeks, how often have you been bothered by any of the following problems? Question Answer Date of Assessment Author Patient Health Questionnaire -2 Score 0 06/04/2024 7:38 AM CLAY STRUCTURE BUILDER AND SERVICER Cynthia Chun RMA documented as of this encounter Plan of Treatment Upcoming Encounters Date Type Department Care Team (Late st Contact Info) Description 08/19/2024 8:45 AM CLAY STRUCTURE BUILDER AND SERVICER Office Visit [facility] - Family Medicine [facility] [address] [place] [address] Bessy Alcaraz APRN, SEALING AND CANCELING MACHINE OPERATOR #[address] [address] documented as of this encounter Goals Goal Patient Goal Type Associated Problems Recent Progress Patient-Stated? Author Behavioral Health Behavioral Health On track( 023 4:31 PM CDT) Yes Agapito Cuenca, AUTO SALVAGE WORKER Note: I want to cope better with [...] documented as of this encounter Results * US PELVIS COMPLETE WITH TRANSVAGINAL (07/01/2024 5:12 PM CLAY STRUCTURE BUILDER AND SERVICER) Anatomical Region Laterality Modality Abdomen N/A Ultrasound 07/06/2024 1:53 AM CLAY STRUCTURE BUILDER AND SERVICER Impressions 07/06/2024 1:56 AM CLAY STRUCTURE BUILDER AND SERVICER IMPRESSION: No acute abnormality. Narrative 07/06/2024 1:56 AM CLAY STRUCTURE BUILDER AND SERVICER EXAM DESCRIPTION: ?? US PELVIS COMPLETE WITH [...] AM T: ??07/06/2024 1:53 AM Report ID: [id number] Reading Location: ??[id number] Procedure Note Rd Jones MD - 07/06/2024 [...] Rd Jones M.D. KT: MURRAY Report ID: [id number] Reading Location: [place] [address] IMPRESSION: No acute abnormality. us Trini Kim MD G US ORDERABLES Final Result documented in this encounter Visit Diagnoses Diagnosis Abnormal uterine bleeding- Primary Unspecified disorder of menstruation and other abnormal bleeding from female genital tract Abnormal uterine bleeding Unspecified disorder of menstruation and other abnormal bleeding from female genital tract documented in this encounter Additional Health Concerns Assessment Noted Time PHQ-9 Depression Total Score: 0 06/04/20 7:38 AM CLAY STRUCTURE BUILDER AND SERVICER documented as of this encounter Care Teams Cinder Man Relationship Specialty Start Date End Date Bessy Alcaraz APRN, CNP #[address] [address] PCP - General Advanced Practice Nurse 10/30/20 Bessy Alcaraz APRN, CNP #[address] [address] Nurse Practitioner Advanced Practice Nurse 10/28/20 Molly Costello APRN, CNP [address]2 [place] [address] Nurse Practitioner Advanced Practice Nurse 10/05/23 documented as of this encounter
--- OUTSIDE RECORDS SUMMARY | 2024-07-28 05:10 | XMS_ITS | Encounter Summary ---
Author Organization [facility] [employer] Care Team Providers Care Golf Club Assembler Name Role Phone Bessy Alcaraz APRN, CNP Unavailable +1- [phone] Bessy Alcaraz APRN, CNP Primary Care Provid er Encounter Details Date Type Department Care Team (Latest Contact Info) Description 11/28/2022 Travel Social History Tobacco Use Types Packs/Day [...] st Contact Info) Description 08/19/2024 8:45 AM RESORT HOUSEKEEPER Office Visit [facility] Medical Group - Family [facility] #2 [place] [address] Bessy Alcaraz APRN, CNP #2 [facility] [address] documented as of this encounter Goals Goal Patient Goal Type Associated Problems Recent Progress Patient-Stated? Author Behavioral Health Behavioral Health On track( 023 4:31 PM CDT) Yes Agapito Cuenca, SULFURIC ACID PLANT OPERATOR Note: I want to cope better with grief and depression over mom's and other issues Goal/Objective: Decrease grieving. Anticipated Time Frame for Goal Completion: 6 months Goal Reviewed with: patient Readiness to change: Ready to change Department associated with goal: [facility] BEHAVIORAL HEALTH SERVICES Steps to achieve [...] Total Score: 3 09/24/19 23 10:00 AM RESORT HOUSEKEEPER documented as of this encounter Care Teams Golf Club Assembler Relationship Specialty Start Date End Date Bessy Alcaraz APRN, ARAM #[address] [address] PCP - General Advanced Practice Nurse 10/30/20 Bessy Alcaraz APRN, ARAM #[address] [address] Nurse Practitioner Advanced Practice Nurse 10/28/20 documented as of this encounter
--- OUTSIDE RECORDS SUMMARY | 2024-07-28 05:10 | XMS_ITS | Encounter Summary ---
Author Organization el? Care Team Providers Care Filler Sifter Helper Name Role Phone Bessy Alcaraz APRN, CNP Unavailable +1- [phone] Bessy Alcaraz APRN, CNP Primary Care Provid er Encounter Details Date Type Department Care Team (Latest Contact Info) Description 08/29/2023 Travel Social History Tobacco Use Types Packs/Day Years Used Date Smoking Tobacco: Never Smokeless Tobacco: Never Alcohol Use Standard Drinks/Week Comments Yes 0 (1 standard drink = 0.6 oz pur e alcohol) Rarely C Utilities Answer Date Recorded In the past 12 months has RaisedDigital electric, gas, oil, or water company threatened [...] re latives? Once a week 08/29/2023 Attends [employer] Not on file 08/29 Active Member [...] Total Score - Questions 1-9 3 09/2022 [facility] - Occupational Stress Questionnaire Answer Date [...] of Assessment Author No 08/29/2023 8:47 AM CLINICAL RESOURCE DIRECTOR [facility] * Within the last year, have you been afraid of your partner or ex-partner? Answer Date of Assessment Author No 08/29/2023 8:47 AM CLINICAL RESOURCE DIRECTOR [facility] * Q1: How often do you have a drink containing alcohol? Answer Date of Assessment Author Monthly or less 08/29/2023 8:47 AM CLINICAL RESOURCE DIRECTOR [facility] * Q2: How many drinks containing alcohol do you have on a typical day when you are drinking? Answer Date of Assessment Author Patient does not drink 08/29/2023 8:47 AM CLINICAL RESOURCE DIRECTOR [facility] documented as of this encounter Plan of Treatment Upcoming Encounters Date Type Department Care Team (Late st Contact Info) Description 08/19/2024 8:45 AM CLINICAL RESOURCE DIRECTOR Office Visit [facility] Medical [facility] - Family Medicine [facility] [place] [address] [place] [address] Bessy Alacraz APRN, FIRST RESPONDER #[address] [address] documented as of this encounter Goals Goal Patient Goal Type Associated Problems Recent Progress Patient-Stated? Author Behavioral Health Behavioral Health On track( 023 4:31 PM CDT) Yes Agapito Cuenca, SETUP OPERATOR Note: I want to cope better with grief and depression over mom's and other issues Goal/Objective: Decrease grieving. Anticipated Time Frame for Goal Completion: 6 months Goal Reviewed with: patient Readiness to change: Ready to change Department associated with goal: [facility] Steps to achieve [...] Total Score: 3 09/24/19 23 10:00 AM CLINICAL RESOURCE DIRECTOR documented as of this encounter Care Teams Filler Sifter Helper Relationship Specialty Start Date End Date Bessy Alcaraz APRN, ARAM #[address] [address] PCP - General Advanced Practice Nurse 10/30/20 Bessy Alcaraz APRN, CNP #2 [facility] [address] [place] [address] Nurse Practitioner Advanced Practice Nurse 10/28/20 documented as of this encounter
--- OUTSIDE RECORDS SUMMARY | 2024-07-28 05:10 | XMS_ITS | Encounter Summary ---
Author Organization [facility] Address [address] [place] [address] Phone Care Team Providers Care Solar Photovoltaic Electrician Name Role Phone Bessy Alcaraz APRN, CNP Unavailable +1- [phone] Bessy Alcaraz APRN, CNP Primary Care Provid er Reason for Visit * Reason Comments Depression * Auth/Cert (Routine) Specialty Diagnoses / Procedures Referred By Edmund abrams Referred To Contact Referral ID Status Reason Start Date Expiration Date Visits Re quested Visits Authorized [id number] 1 1 Encounter Details Date Type Department Care Team (Latest Contact Info) Description 10/24/2022 11:15 AM CDT Outpatient Clinic Visit [facility] [address] [place] [address] Agapito Cuenca, SCRIPT DEVELOPER [address] [place] [address] Grief reaction (Primary Dx); MDD (major depressive disorder), recurrent episode, moderate (HCC); ADHD (attention deficit hyperactivity disorder), combined type Discharge Disposition: Discharged to home [...] Patient Instructions * Patient Instructions* Agapito Cuenca, SCRIPT DEVELOPER - 10/24/2022 11:15 AM CDT Images from the original note were not included. Suicide Hotlines - Crisis Intervention 13/02 Intervention Team [facility] Crisis Intervention Team?[phone] ([facility] Crisis Intervention Team?.. [phone] ([facility] Can be used by individual, PD, Hospitals, family, friend etc. for in-home assessment of concerns for someone's mental health Local Numbers - Behavioral Health Response (BHR)?[phone] / [phone] ([employer]) Life Crisis Services?.835-185- UNIO (0097) ([employer]) CARES Line (Medicaid patients up to age 21)???[phone] If non-Medicaid patient, still need tocall Cares Line and if screened out will be sent to [facility] or [place] for follow up Crisis Intervention Team National Numbers - National Suicide Prevention Hotline: ?.988 or 1-833-698-TALK (8710) Sexual Assault Hotline?7-273-810-HOPE (0242) Domestic Violence Hotline?.0-779-351-SAFE (2249) [facility] Lifeline? Trans Lifeline?6-937- 141-7424 LGBTQ Partner Abuse & Sexual Assault Line?.1-577.383.4857 Crisis Text Line?Text help to 849648 Warm Lines [place] Warmline?9-355-137-79 [facility] Warmline? 9a-9p/7 days a week Compassionate Ear Warmline?..9-805-561-1993 MENTAL HEALTH EMERGENCY- Assessment for Crisis/or/ED's with Inpatient Units Behavioral Health Urgent Care [facility] Behavioral Health Urgent Care [phone] (5yrs old to Adult) [address] [place] [address] Monday - Monday 9:00am - 7:00pm *Last patient seen at 6:00pm Walk-In Crisis or Telehealth for age 18+ Crisis Walk In: Call for Help's Living Room: Monday-Monday 8:30am-5pm [address], [place] [address] Crisis Telehealth: Monday, Monday, Monday 8:30am-5:00pm and Monday, 12:00pm-8:00pm. Must have good internet connection. To access telehealth go to ???Talk to Someone Now?? or call [phone] ext. 109. No cost and no insurance necessary. Emergency Department diversion program. [facility] (Intake Adult Acute) [phone] [place] [address]. https://[facility]/services/sunmptllbr-qkurfi-ikb-wellness [facility] [phone] (Intake Adult 18+-Used by clinician to alert that patient will be coming in through the emergency room) [address] [place] [address] [facility] (13/02 - emergency services for children age 4+, adolescent, adult) [phone] [place] [address]. Adult Inpatient Facility. http://[facility].org/ [facility] [employer].: Sexual Assault Victims Care Unit. (Children, adolescent, adult) 13/02 crisis intervention: 475.489.5147 Hotline Number and Main Office. Community Stabilization (Homeless adults with Mental Illness) 843.596.5881. http://[facility]org/ [facility] 946-745-9399236.356.3131 (children, adolescent, adult) [address] [place] [address] http://[facility].com/admission-informationfaqs/ [facility] Behavioral Health [phone] Option #1 (adult) [address] [place] [address] https://www.[facility]/service/mental-health Inpatient evaluations conducted in Intake office on the ground floor 8am-4pm [facility] (children, adolescent, adult) http://www.[facility].Private Driving [employer]structors [place]/behavioralhealth [facility] [phone] (Adult only) https://www.[facility]/psychiatry/nncla-dayojipgza-unitcsnh.php [facility] Behavioral Health. [phone] (children, adolescent, adult) http://www.[facility]/medical-services/behavioral-health documented in this encounter Progress Notes * Agapito Cuenca LCSW - 10/24/2022 11:15 AM CDT Images from the original note were not included. [facility] BEHAVIORAL HEALTH CLINICAL PROGRESS NOTE NAME: Cee March AGE: 26 y.o. DATE OF : 1995 DATE OF SERVICE: 10/24/2022 START TIME: 11:15 am END TIME: 12:00 pm DIAGNOSIS: 1. Grief reaction 2. MDD (major depressive disorder), recurrent episode, moderate (HCC) 3. ADHD (attention deficit hyperactivity disorder), combined type TREATMENT PLAN: Goals Addressed This Visit's Progress ??? Behavioral Health (pt-stated) On track I want to cope better with grief and depression over mom's and other issues Goal/Objective: Decrease grieving. Anticipated Time Frame for Goal Completion: 6 months Goal Reviewed with: patient Readiness to change: Ready to change Department associated with goal: [facility] BEHAVIORAL HEALTH SERVICES Steps to [...] thoughts withdrawn/isolating Cee talked about ongoing depression is worried that she will have depression after shedelivers, so is considering an antidepressant, has an OBGYN appointment later on today. She is still grieving/feeling guilty regarding family deaths. Based upon the presenting problem the following [...] st Contact Info) Description 08/19/2024 8:45 AM CARD SELLER Office Visit [facility] - Family Medicine [facility] [address] [place] [address] Bessy Alcaraz APRN, ARAM #[address] [address] documented as of this encounter Goals Goal [...] to change Department associated with goal: [facility] BEHAVIORAL HEALTH SERVICES Steps to [...] (HCC) Major depressive disorder, recurrent episode, moderate ADHD (attention deficit hyperactivity disorder), combined type Attention deficit disorder with hyperactivity documented in this encounter Additional Health Concerns Assessment Noted Time PHQ-9 Depression Total Score: 3 09/24/19 23 10:00 AM CARD SELLER documented as of this encounter Care Teams Solar Photovoltaic Electrician Relationship Specialty Start Date End Date Bessy Alcaraz APRN, ARAM #[address] [address] PCP - General Advanced Practice Nurse 10/30/20 Bessy Alcaraz APRN, CARTON FORMING MACHINE TENDER #[address] [address] Nurse Practitioner Advanced Practice Nurse 10/28/20 documented as of this encounter
--- OUTSIDE RECORDS SUMMARY | 2024-07-28 05:10 | XMS_ITS | Encounter Summary ---
Author Organization [facility] Address [address] [place] [address] Phone Care Team Providers Care Resources Representative Name Role Phone Bessy Alcaraz APRN, ARAM Unavailable +1- [phone] Bessy Alcaraz APRN, CNP Primary Care Provid er Encounter Details Date Type Department Care Team (Late st Contact Info) Description 05/10/2022 Telephone [facility] [address], [place] [address] [place] [address] Mina Hernandez, [facility] Social History Tobacco Use Types Packs/Day Years [...] Telephone Encounter - Mina Hernandez PTA - 05/10/2022 10:07 AM CDT Pt called concerned about having elbow pain that started last week. Advised pt that she would need to see her MD since it is not something we are currently treating. Pt stated she understood this. Discussed continuation of therapy options with pt and she decided to place therapy on hold until she sees her MD. Informed pt we would take her off of the schedule for the next two weeks and if we do not hear back from her, we would discharge therapy. Pt stated she understood this. * Telephone Encounter - Mina Hernandez PTA - 05/10/2022 8:26 AM CDT ----- Message from Robert Christensen sent at 05/10/2022 7:50 AM CDT ----- Regarding: cxd Same day cxd# I still cant straighten my arm She also asked if you could give her a call paloma. documented in this encounter Plan of Treatment Upcoming Encounters Date Type Department Care Team (Late st Contact Info) Description 08/19/2024 8:45 AM HELPER/DRIVER [facility] [address] [place] [address] Bessy Alcaraz APRN, ARAM #[address] [address] documented as of this encounter Visit Diagnoses Not on filedocumented in this encounter Additional Health Concerns Assessment Noted Time PHQ-9 Depression Total Score: 11 022 4:00 PM CDT documented as of this encounter Care Teams Resources Representative Relationship Specialty Start Date End Date Bessy Alcaraz APRN, CNP #[address] [address] PCP - General Advanced Practice Nurse 10/30/20 Bessy Alcaraz APRN, PATIENT ACCOUNT REPRESENTATIVE #[address] [address] Nurse Practitioner Advanced Practice Nurse 10/28/20 documented as of this encounter
--- OUTSIDE RECORDS SUMMARY | 2024-07-28 05:10 | XMS_ITS | Encounter Summary ---
Author Organization [facility] Address [address] [place] [address] Phone Care Team Providers Care Pill Coater Name Role Phone Bessy Alcaraz APRN, CNP Unavailable + [phone] Bessy Alcaraz APRN, CNP Primary Care Provid er Reason for Visit * Reason Comments Pain Patient is here for ear pain, says she has been having sinus drainage for about 7-10 days Encounter Details Date Type Department Care Team (Late st Contact Info) Description 11/29/2022 1:15 PM CDT [facility] #2 [place] [address] Bessy Alcaraz APRN, CNP #[address] [address] TMJ (temporomandibular joint syndrome) (Primary Dx) Discharge Disposition: Discharged to home [...] AM CDT documented as of this encounter Last Filed Vital Signs Vital Sign Reading Time Taken Comments Blood Pressure 112/74 11/29/2022 1:19 PM CDT Pulse 76 11/29/2022 1:19 PM CDT Temperature 36.3 ??C (97.4 ??F) 11/29/2022 1:19 PM CD T Respiratory Rate 14 11/29/2022 1:19 PM CDT Oxygen Saturation 98% 11/29/2022 1:19 PM CDT Inhaled Oxygen Concentration - - Weight 92.7 kg (204 lb 6.4 oz) 11/29/2022 1:19 P M CDT Height 152.4 cm (5') 11/29/2022 1:19 PM CDT Body Mass Index 39.92 11/29/2022 1:19 PM CDT documented in this encounter Progress Notes * Aida Daigle - 11/29/2022 1:15 PM CDT Ceecarlos March, 26 y.o., female is here for Pain (Patient is here for ear pain, says she has been having sinus drainage for about 7-10 days) Medication Refills: Patient reports/denies need for medication refills. Orders Pended: no Requested Prescriptions No prescriptions requested or ordered in this encounter Home Medications Medication Sig Start Date End Date Taking? Authorizing Provider atomoxetine 80 MG Capsule Take 1 Capsule by mouth daily. Patient not taking: Reported on 09/23/2022 04/15/22 Bessy Alcaraz APRN, MUSIC LIBRARY ASSISTANT There are no discontinued medications. I have [...] Never done ??? SARS-COV-2 Immunization (4 - Booster for Pfizer series) 09/14/2021 Orders Pended: no The following BPA's have been addressed with the patient today: Mammogram, Smoking, Depression, Fall Risk, Nutrition, Advanced Care Planning and HCC * Bessy Alcaraz APRN, MUSIC LIBRARY ASSISTANT - 11/29/2022 1:15 PM CDT [facility] - [facility] #2 [facility] [address] Dept: [phone] Dept Loc: [phone] Loc Patient: Cee March : 1995 Sex: female Subjective Subjective: HPI: Cee March presents for Pain (Patient is here for ear pain, says she has been having sinus drainage for about 7-10 days) . Cee March is a 26 y.o. female who complains of left ear fullness, left sided jaw pain, and sinus congestion for 7 days. She denies a history of anorexia, chest pain, chills, dizziness, fatigue, fevers, myalgias, nausea, shortness of breath, sweats, vomiting, weakness, weight loss, wheezing, cough and sputum production and denies a history of asthma. Patient does not smoke cigarettes. She is 34 weeks . Past Medical History Positives Diagnosis Date ??? [...] History: Procedure Laterality Date ??? COLONOSCOPY 2017 [place] ??? COLONOSCOPY Left 12/27/2018 Procedure: COLONOSCOPY-HEMORRHOIDS; Surgeon: Scooby Cuellar MD; Location: [facility]; Service: Gastroenterology ??? ORAL SURGERY PROCEDURE Abcess tooth removed and wisdom teeth ??? TONSILLECTOMY Review of Systems Constitutional: Negative for activity change, chills, diaphoresis, fatigue and fever. HENT: Positive for postnasal drip and rhinorrhea. Negative for congestion, dental problem, drooling, ear discharge, ear pain, facial swelling, hearing loss, mouth sores, nosebleeds, sinus pressure, sinus pain, sneezing, sore throat, tinnitus, trouble swallowing and voice change. Left jaw pain and left ear pain Eyes: Negative for pain and redness. Respiratory: Negative for cough, choking, chest tightness, shortness of breath and wheezing. Cardiovascular: Negative for chest pain and palpitations. Gastrointestinal: Negative for constipation, diarrhea, nausea and vomiting. Musculoskeletal: Negative for myalgias. Neurological: Positive for headaches. Negative for dizziness and light-headedness. Objective Objective: BP 112/74 (BP Location: Left Arm, BP Position: Sitting, BP Cuff Size: Regular) Pulse 76 Temp 97.4 ??F (36.3 ??C) (Temporal) Resp 14 Ht 5' (1.524 m) Wt 204 lb 6.4 oz (92.7 kg) LMP 04/04/2020 (Exact Date) SpO2 98% BMI 39.92 kg/m?? Physical Exam Vitals and nursing note reviewed. Constitutional: General: She is not in acute distress. Appearance: Normal appearance. She is well-developed. She is not diaphoretic. HENT: Head: Normocephalic and atraumatic. Jaw: Tenderness (left) present. Right Ear: Tympanic membrane, ear canal and external ear normal. Left Ear: Tympanic membrane, ear canal and external ear normal. Nose: Congestion and rhinorrhea present. Rhinorrhea is clear. Mouth/Throat: Mouth: Mucous membranes are moist. Pharynx: Oropharynx is clear. Eyes: Pupils: Pupils are equal, [...] Normal range of motion and neck supple. No tenderness. Skin: General: Skin is dry. Neurological: Mental Status: She is alert and oriented to person, place, and time. Psychiatric: Behavior: Behavior normal. Thought Content: Thought content normal. Judgment: Judgment normal. Medical Decision Making: Assessment & Plan Diagnoses and all orders for this visit: TMJ (temporomandibular joint syndrome) PLAN: Based on physical exam suspect TMJ irritation. Provided her with stretches and recommended ice and p.r.n. ibuprofen if absolutely needed. Return if symptoms worsen or fail to improve. documented in this encounter Plan of Treatment Upcoming Encounters Date Type Department Care Team (Late st Contact Info) Description 08/19/2024 8:45 AM TURF FARMER Office Visit [facility] - [facility] #2 [place] [address] Bessy Alcaraz APRN, CNP #[address] [address] documented as of this encounter Goals Goal [...] change Department associated with goal: [facility] BEHAVIORAL HEALTH SERVICES Steps to achieve [...] as of this encounter Visit Diagnoses Diagnosis TMJ (temporomandibular joint syndrome)- Primary Temporomandibular joint disorders, unspecified documented in this encounter Additional Health Concerns Assessment Noted Time PHQ-9 Depression Total Score: 3 09/24/19 23 10:00 AM TURF FARMER documented as of this encounter Care Teams Pill Coater Relationship Specialty Start Date End Date Bessy Alcaraz APRN, ARAM #[address] [address] PCP - General Advanced Practice Nurse 10/30/20 Bessy Alcaraz APRN, ARAM #[address] [address] Nurse Practitioner Advanced Practice Nurse 10/28/20 documented as of this encounter
--- OUTSIDE RECORDS SUMMARY | 2024-07-28 05:11 | XMS_ITS | Encounter Summary ---
Author Organization [facility] Address [address] [place] [address] Phone Care Team Providers Care Banquet Pilot Name Role Phone Bessy Alcaraz APRN, CNP Unavailable + [phone] Bessy Alcaraz APRN, CNP Primary Care Provid er Reason for Visit * Reason Comments Follow-up 2 week follow up ADH D Encounter Details Date Type Department Care Team (Late st Contact Info) Description 04/15/2022 11:30 AM CDT Office Visit [facility] - Family Medicine - [place] [address] [place] [address] Bessy Alcaraz APRN, CNP [address] [address] Attention deficit hyperactivity disorder (ADHD), combined type (Primary Dx); RUQ pain Discharge Disposition: Discharged to home [...] suspected to have Coronavirus/COVID-19? No / Unsure 04/15/2022 10:07 AM CDT documented as of this encounter Last Filed Vital Signs Vital Sign Reading Time Taken Comments Blood Pressure 110/82 04/15/2022 11:20 AM CDT Pulse 67 04/15/2022 11:20 AM CDT Temperature 36.7 ??C (98 ??F) 04/15/2022 11:20 AM CDT Respiratory Rate 18 04/15/2022 11:20 AM CDT Oxygen Saturation 98% 04/15/2022 11:20 AM CDT Inhaled Oxygen Concentration - - Weight 86.3 kg (190 lb 4.8 oz) 04/15/2022 11:20 AM CDT Height 152.4 cm (5') 04/15/2022 11:20 AM CDT Body Mass Index 37.17 04/15/2022 11:20 AM CDT documented in this encounter Progress Notes * Zeinab Alfonso - 04/15/2022 11:30 AM CDT Cee March, 26 y.o., female is here for Follow-up (2 week follow up ADHD) Medication Refills: Patient reports/denies need for medication refills. Orders Pended: no Requested Prescriptions No prescriptions requested or ordered in this encounter Home Medications Medication Sig Start Date End Date Taking? Authorizing Provider atomoxetine (STRATTERA) 40 MG Capsule Take 40 mg by mouth daily. Yes Provider, MD Raymundo There are no discontinued medications. I have reviewed the home medication list with the patient and have reconciled discrepancies. The list is accurate to the best of my knowledge. Smoking Status: Social History Tobacco Use ??? Smoking status: Never Smoker ??? Smokeless tobacco: Never Used Vaping Use ??? Vaping Use: Never used Substance Use Topics ??? Alcohol use: Yes Comment: Rarely ??? Drug use: Never Smoking Cessation Counseling Given: no Health Care Maintenance: Health Maintenance Due Topic Date Due ??? DTaP/Tdap/Td Immunization (4 - Tdap) 12/12/2003 ??? Pap Smear Never done ??? SARS-COV-2 Immunization (4 - Booster for Pfizer series) 09/14/2021 ??? Influenza Immunization (1) 03/24/2022 Orders Pended: no The following BPA's have been addressed with the patient today: No BPA's at this time * Bessy Alcaraz APRN, ARAM - 04/15/2022 11:[address] [facility] [address] [facility] [address] Dept: [phone] Dept Loc: [phone] Loc Patient: Cee March : 1995 Sex: female Subjective Subjective: HPI: Cee March presents for Follow-up (2 week follow up ADHD) . Patient presents today for 2 week follow up for ADHD. She was started on Strattera at 40 mg with increase to 80 mg. She noted a improvement when she increased the dose. She reports that she had mild to moderate improvement in her focus, less hyperactivity She did have some mild insomnia after increasing her dose. She reports she did drop her dose again due to being [place] a theme park. She had some palpitations but she was under stress. She reports she is still experiencing her intermittent. RUQ abdominal discomfort. So far all labs are unremarkable. She had a RUQ US today, no results. Review of Systems Constitutional: Positive for appetite change. Negative for activity change, chills, diaphoresis, fatigue and fever. Respiratory: Negative for cough, chest tightness, shortness of breath and wheezing. Cardiovascular: Negative for chest pain, palpitations and leg swelling. Gastrointestinal: Positive for abdominal distention, abdominal pain (RUQ), constipation, diarrhea, nausea and vomiting. Negative for anal bleeding, blood in stool and rectal pain. Genitourinary: Negative for difficulty urinating, dysuria, flank pain, frequency and urgency. Neurological: Negative for dizziness, light-headedness and headaches. Psychiatric/Behavioral: Positive for decreased concentration. Negative for agitation, behavioral problems, confusion, dysphoric mood, hallucinations, self- injury, sleep disturbance and suicidal ideas. The patient is hyperactive. The patient is not nervous/anxious. Objective Objective: BP 110/82 (BP Location: Left Arm, BP Position: Sitting, BP Cuff Size: Regular) Pulse 67 Temp 98??F (36.7 ??C) (Temporal) Resp 18 Ht 5' (1.524 m) Wt 190 lb 4.8 oz (86.3 kg) LMP 03/18/2020(LMP Unknown) SpO2 98% BMI 37.17 kg/m?? Physical Exam Vitals and nursing note [...] Content: Thought content normal. Judgment: Judgment normal. Vital Signs Vitals: 04/15/22 1120 BP: 110/82 BP Location: Left Arm BP Position: Sitting BP Cuff Size: Regular Pulse: 67 Resp: 18 Temp: 98 ??F (36.7 ??C) TempSrc: Temporal SpO2: 98% Weight: 190 lb 4.8 oz (86.3 kg) Height: 5' (1.524 m) Lab Results Lab on 03/29/2022 Component Date Value Ref Range Status ? ? HIV 1 & 2 ANTIBODY & ANTIGEN SCREEN 03/29/2022 NON DETECTED NON DETECTED Final ? ? hepatitis C antibody 03/29/2022 0.09 <1 S/CO Final Signal/Cutoff ratio < 0.79 is Nondetected Signal/Cutoff ratio 0.80-0.99 is Grayzone Signal/Cutoff ratio > 0.99 is Detected Supplemental assays are recommended if signal/cutoff ratio is >/=1.00. Signal/cutoff ratio result >/= 5.00 is 97% predictive of positivity for recombinant immunoblot assay (RIBA) and will be reported to the [place] Department of Public Health as required. ??? HEP B CORE AB (IGM) 03/29/2022 NON DETECTED NON DETECTED Final IGM anti-HBC not detected. Does not exclude the possibility of exposure to or infection with HBV. ? ? HEPATITIS B SURFACE ANTIBODY 03/29/2022 <8.00 mIU/mL Final Individual is considered not immune to HBV infection. ??? HEPATITIS B SURFACE ANTIGEN 03/29/2022 NON DETECTED NON DETECTED Final A nonreactive test result does not exclude the possibility of exposure to or infection with Hepatitis B virus. A nonreactive test result in individuals with prior exposure to hepatitis B may be due to antigen levels below the detection limit of this assay or lack of antigen reactivity to the antibodies in this assay. ??? SODIUM 03/29/2022 133 (A) 136 - 144 mmol/L Final ??? POTASSIUM 03/29/2022 3.9 3.5 - 5.1 mmol/L Final ??? CHLORIDE 03/29/2022 99 (A) 100 - 110 mmol/L Final ??? CO2, VENOUS 03/29/2022 23 22 - 32 mmol/L Final ??? ANION GAP 03/29/2022 14.9 8.0 - 20.0 mmol/L Final ??? GLUCOSE 03/29/2022 87 70 - 99 mg/dL Final ??? BUN 03/29/2022 9 6 - 20 mg/dL Final ??? CREATININE, BLOOD 03/29/2022 0.59 (A) 0.60 - 1.10 mg/dL Final ??? BUN/CREATININE RATIO 03/29/2022 15 12 - 20 ratio Final ??? TOTAL PROTEIN 03/29/2022 7.4 6.0 - 8.3 g/dL Final ??? ALBUMIN 03/29/2022 4.4 3.5 - 5.2 g/dL Final The colormetric methods used for the determination of Albumin may lead to falsely elevated test results in patients suffering from renal failure or insufficiency due to interference with other proteins. ??? A/G RATIO 03/29/2022 1.5 1.0 - 2.0 Final ??? CALCIUM 03/29/2022 9.3 8.9 - 10.3 mg/dL Final ? ? T BILI 03/29/2022 0.3 <=1.2 mg/dL Final ? ? SGOT (AST) 03/29/2022 13 <=32 U/L Final ? ? SGPT (ALT) 03/29/2022 14 <=41 U/L Final ??? ALKALINE PHOSPHATASE 03/29/2022 100 35 - 105 U/L Final ??? IS THE PATIENT REQUIRED TO BE FAST* 03/29/2022 No Final ? ? GFR, ESTIMATED 03/29/2022 >60 >=60 Final Creatinine Clearance is the preferred criteria for selecting drug dose adjustments in renally impaired patients. ??The GFR is provided as additional pertinent clinical information. GFR is reported in mL/min/1.73 sq m. Calculation based on the Chronic Kidney Disease Epidemiology Collaboration (CKD- EPI) equation refitwithout adjustment for race. ? ? GFR, EST. 03/29/2022 >60 >=60 Final ? ? GFR, EST. NONAFRICAN 03/29/2022 >60 >=60 Final ??? LIPASE 03/29/2022 22.2 13 - 60 U/L Final ??? AMYLASE 03/29/2022 53 28 - 100 U/L Final ??? WBC 03/29/2022 7.72 4.00 - 12.00 10(3)/mcL Final ??? RBC 03/29/2022 4.34 3.80 - 5.30 10(6)/mcL Final ??? HEMOGLOBIN (HGB) 03/29/2022 13.4 12.0 - 15.8 g/dL Final ??? HEMATOCRIT (HCT) 03/29/2022 40.3 36.0 - 47.0 % Final ??? MCV 03/29/2022 92.9 82.0 - 96.0 fL Final ??? MCH 03/29/2022 30.9 26.0 - 34.0 pg Final ??? MCHC 03/29/2022 33.3 31.0 - 36.0 g/dL Final ??? PLATELET COUNT 03/29/2022 332 140 - 440 10(3)/mcL Final ??? RDW 03/29/2022 12.5 11.8 - 15.5 % Final ??? MPV 03/29/2022 10.4 9.7 - 12.4 fL Final ??? NEUTROPHILS 03/29/2022 63.6 47.0 - 73.0 % Final ??? LYMPHOCYTES 03/29/2022 25.6 18.0 - 42.0 % Final ??? MONOCYTES 03/29/2022 7.4 4.0 - 12.0 % Final ??? EOSINOPHILS 03/29/2022 3.0 0.0 - 5.0 % Final ??? BASOPHILS 03/29/2022 0.4 0.0 - 1.0 % Final ??? ABSOLUTE NEUTROPHILS 03/29/2022 4.91 1.60 - 7.70 10(3)/mcL Final ??? ABSOLUTE LYMPHOCYTES 03/29/2022 1.98 1.30 - 3.20 10(3)/mcL Final ??? ABSOLUTE MONOCYTES 03/29/2022 0.57 0.20 - 1.00 10(3)/mcL Final ??? ABSOLUTE EOSINOPHIL 03/29/2022 0.23 0.00 - 0.40 10(3)/mcL Final ??? ABSOLUTE BASOPHILS 03/29/2022 0.03 0.00 - 0.10 10(3)/mcL Final ??? NRBC PER 100 WBC 03/29/2022 0 Final Lab Results Component Value Date WBC 7.72 03/29/2022 HEMOGLOBIN 13.4 03/29/2022 HEMATOCRIT 40.3 03/29/2022 PLATELETCNT 332 03/29/2022 Lab Results Component Value Date SODIUM 133 (L) 03/29/2022 POTASSIUM 3.9 03/29/2022 CHLORIDE 99 (L) 03/29/2022 CO2VEN 23 03/29/2022 ANIONGAP 14.9 03/29/2022 GLUCOSE 87 03/29/2022 BUN 9 03/29/2022 CREATININE 0.59 (L) 03/29/2022 BCRATIO8 15 03/29/2022 TOTALPROTEIN 7.4 03/29/2022 ALBUMIN 4.4 03/29/2022 CALCIUM 9.3 03/29/2022 TBIL 0.3 03/29/2022 SGOTAST 13 03/29/2022 SGPTALT 14 03/29/2022 ALKALINEPHO 100 03/29/2022 GFRNA >60 03/29/2022 GFRA >60 03/29/2022 TSH 1.870 01/18/2022 FREET3 2.7 01/18/2022 T4FREE 1.1 01/18/2022 Please see results review for comprehensive lab results. Medical Decision Making: Assessment & Plan Diagnoses and all orders for this visit: Attention deficit hyperactivity disorder (ADHD), combined type - atomoxetine 80 MG Capsule; Take 1 Capsule by mouth daily. RUQ pain Other orders - Discontinue: atomoxetine (STRATTERA) 40 MG Capsule; Take 40 mg by mouth daily. Will continue the Strattera at 80 mg as patient only took a few days of this. Instructed patient tosend a Hot[employer] message in 7-10 days with her current symptoms and if they have improved. Will wait for right upper quadrant ultrasound to determine further steps. Refill medications sent to pharmacy. Follow-up in 4 weeks. Return in about 4 weeks (around 05/13/2022). documented in this encounter Plan of Treatment Upcoming Encounters Date Type Department Care Team (Late st Contact Info) Description 08/19/2024 8:45 AM R PROGRAMMER Office Visit [facility] - Family Medicine - [place] [address] [place] [address] Bessy Alcaraz APRN, SUPERVISOR [address]Y[facility] [address] [phone] documented as of this encounter Visit Diagnoses Diagnosis Attention deficit hyperactivity disorder (ADHD), combined type- Primary RUQ pain Abdominal pain, right upper quadrant documented in this encounter Additional Health Concerns Assessment Noted Time PHQ-9 Depression Total Score: 11 10/26/ 022 4:00 PM CDT documented as of this encounter Care Teams Banquet Pilot Relationship Specialty Start Date End Date Bessy Alcaraz APRN, ARAM [address] [phone] PCP - General Advanced Practice Nurse 10/30/20 Bessy Alcaraz APRN, ARAM #[address] [phone] Nurse Practitioner Advanced Practice Nurse 10/28/20 documented as of this encounter
--- OUTSIDE RECORDS SUMMARY | 2024-07-28 05:11 | XMS_ITS | Encounter Summary ---
Author Organization [facility] [employer] Care Team Providers Care Silverlight Developer Name Role Phone Bessy Alcaraz APRN, CNP Unavailable [phone] Bessy Alcaraz APRN, CNP Primary Care Provid er Encounter Details Date Type Department Care Team (Latest Contact Info) Description 01/29/2021 Travel Social History Tobacco Use Types Packs/Day Years Used Date Smoking Tobacco: Never Smokeless Tobacco: Never Alcohol Use Standard Drinks/Week Comments Yes 0 (1 standard drink = 0.6 oz pur e alcohol) Rarely PHQ-2 Answer Date Recorded Total Score - Questions 1-9 12 /0 03/2021 Education Answer Date Recorded What is the highest level of school you have completed or the highest degree you have received? Associate degree: academic program 01/18/2021 Sexually Active [employer] Comments Yes I.U.D. Comments No Sex and Gender Information Value Date Recorded Sex Assigned at Not on file Legal Sex Female 3:47 PM CDT Gender Identity Not on file Sexual Orientation Not on file COVID-19 Exposure Response Date Recorded In the last month, have you been in contact with someone who was confirmed or suspected to have Coronavirus / COVID-19? No / Unsure 01/29/2021 1:17 PM CDT documented as of this encounter Plan of Treatment Upcoming Encounters Date Type Department Care Team (Late st Contact Info) Description 08/19/2024 8:45 AM CASSANDRA ARCHITECT Office Visit [facility] - Family Medicine [facility] [address] [place] [address] Bessy Alcaraz APRN, ARAM [address] [address] documented as of this encounter Visit Diagnoses Not on filedocumented in this encounter Additional Health Concerns Assessment Noted Time PHQ-9 Depression Total Score: 12 021 3:00 PM CDT documented as of this encounter Care Teams Silverlight Developer Relationship Specialty Start Date End Date Bessy Alcaraz APRN, ARAM #[address] [phone] PCP - General Advanced Practice Nurse 10/30/20 Bessy Alcaraz APRN, ARAM #[address] [phone] Nurse Practitioner Advanced Practice Nurse 10/28/20 documented as of this encounter
--- OUTSIDE RECORDS SUMMARY | 2024-07-28 05:11 | XMS_ITS | Encounter Summary ---
Author Organization [facility] Address [address] [place] [address] Phone Care Team Providers Care Dynamo Repairer Name Role Phone Bessy Alcaraz APRN, CNP Unavailable [phone] Bessy Alcaraz APRN, CNP Primary Care Provid er Reason for Referral * PT/OT/ST (Routine) - Closed Specialty Diagnoses / Procedures Referred By Edmund abrams Referred To Contact Rehabilitation Diagnoses Chronic bilateral low back pain without sciatica Bessy Alcaraz APRN, ARAM #[address] [facility] [address] [place] [address] Phone: tel: fax: [facility] [address] [facility] [address] [place] [address] Phone: tel: fax: Referral ID Status Reason Start Date Expiration Date Visits Re quested Visits Authorized [id number] Closed 03/24/2022 1 20 Scheduling Instructions PT or OT as indicated: Eval and Treat Cee is being referred for therapy for chronic low back pain. See below for Cee's current medications, allergies and problem list. Please contact patient for scheduling questions or concerns. CURRENT MEDS: No current outpatient medications on file. No current facility-administered medications for this visit. ALLERGIES: No Known Allergies PROBLEM LIST: Patient Active Problem List: MDD (major depressive disorder), recurrent episode, moderate (HCC) Generalized anxiety disorder PTSD (post-traumatic stress disorder) Disordered eating Reason for Visit * Reason Comments Abdominal Pain Patient is being see n for RUQ pain for 3.5 months. Encounter Details Date Type Department Care Team (Late st Contact Info) Description 03/24/2022 5:00 PM CDT Office Visit [facility] [address] [place] [address] Bessy Alcaraz APRN, ARAM [address] [address] Exposure to blood or body fluid (Primary Dx); Attention deficit hyperactivity disorder (ADHD), combined type; RUQ pain; Chronic bilateral low back pain without sciatica Discharge Disposition: Discharged to home or Selfcare [...] suspected to have Coronavirus/COVID-19? No / Unsure 03/24/2022 4:59 PM CDT documented as of this encounter Last Filed Vital Signs Vital Sign Reading Time Taken Comments Blood Pressure 112/74 03/24/2022 5:03 PM CDT Pulse 70 03/24/2022 5:03 PM CDT Temperature 36.8 ??C (98.2 ??F) 03/24/2022 5:03 PM CD T Respiratory Rate 16 03/24/2022 5:03 PM CDT Oxygen Saturation 97% 03/24/2022 5:03 PM CDT Inhaled Oxygen Concentration - - Weight 85.8 kg (189 lb 3.2 oz) 03/24/2022 5:03 P M CDT Height 152.4 cm (5') 03/24/2022 5:03 PM CDT Body Mass Index 36.95 03/24/2022 5:03 PM CDT documented in this encounter Progress Notes * Cynthia Chun RMA - 03/24/2022 5:00 PM CDT Cee March, 26 y.o., female is here for Abdominal Pain (Patient is being seen for RUQ pain for 3.5 months. ) Medication Refills: Patient reports/denies need for medication refills. Orders Pended: no Requested Prescriptions No prescriptions requested or ordered in this encounter Home Medications Not on File There are no discontinued medications. I have [...] 12/12/2003 ??? Pap Smear Never done ??? Influenza Immunization (1) 03/24/2022 Orders Pended: no The following BPA's have been addressed with the patient today: FLU * Bessy Alcaraz APRN, ARAM - 03/24/2022 5:00 PM CDT [facility] [facility] [address] Dept: [phone] Dept Loc: [phone] Loc Patient: Cee March : 1995 Sex: female Subjective Subjective: HPI: eCe March presents for Abdominal Pain (Patient is being seen for RUQ pain for 3.5 months. ) . Patient presents today to discuss exposure, ADHD, and abdominal pain. She also had a change in her insurance and would like to try to go to PT for her chronic back pain. Patient would like to be screening for HIV, Hep B, and Hep A. This was at a previous job and now she is somewhere else. She was drawing blood and had a hang nail. She reports that the blood came intocontact with her open wound. This was three months ago. Patient would also like to discuss medication management for ADHD. She was screened by Counseling and was found to have symptoms consistent with ADHD combined type. She was never screened as a child and reports her parents did not take her to the doctor. She is interested in medication. 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 She has noted much issue with her job as she is very active. She is planning on having a child in the next year. She reports intermittent abdominal pain. This has been going on for three months. She states that it does hurt with and without eating. Its a sharp pain. It will last for several hours. She will havenausea and bilious vomiting. Denies changes in her appetite. She had a normal US in 2019. She does have IBS with intermittant constipation and diarrhea. She will go up to 5 days without a BM. She reports she has the pain every two weeks and it will last up to two weeks. Patient has a history of chronic low back pain. To his last him for this in December. He describes the pain as a dull pain and has intermittent numbness and tingling in her lower extremities. She has hadessentially normal x-rays. She does see a chiropractor which helped her short term. 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 She would like to have physical therapy for strengthening and pain reduction. Past Medical History Positives Diagnosis Date ??? Abdominal pain ??? Anemia ??? Anxiety and depression ??? Gastritis ??? GERD (gastroesophageal reflux disease) ??? Heart murmur 2019 just found, goes to doctor for this 01/08/19 ??? IBS (irritable bowel syndrome) ??? TMJ (temporomandibular joint syndrome) No current outpatient medications on file prior to visit. No current facility-administered medications on file prior to visit. No Known Allergies Family History Problem Relation Age of Onset [...] ??? Anxiety disorder Brother ??? Depression Brother Review of Systems Constitutional: Positive for appetite [...] urinating, dysuria, flank pain, frequency and urgency. Musculoskeletal: Positive for back pain. Neurological: Negative for dizziness, light-headedness and headaches. Psychiatric/Behavioral: Positive for decreased concentration. Negative for agitation, behavioral problems, confusion, dysphoric mood, hallucinations, self- injury, sleep disturbance and suicidal ideas. The patient is hyperactive. The patient is not nervous/anxious. Objective Objective: BP 112/74 Pulse 70 Temp 98.2 ??F (36.8 ??C) (Temporal) Resp 16 Ht 5' (1.524 m) Wt 189 lb 3.2 oz (85.8 kg) LMP 03/18/2020 (LMP Unknown) SpO2 97% BMI 36.95 kg/m?? Physical Exam Vitals and nursing note [...] is no distension. Palpations: Abdomen is soft. There is no mass. Tenderness: There is no abdominal tenderness. There is no guarding or rebound. Hernia: No hernia is present. Musculoskeletal: General: No deformity or signs of injury. Normal range of motion. Cervical back: Normal range of motion. Right lower leg: No edema. Left lower leg: No edema. Skin: General: Skin is warm and dry. [...] Diagnoses and all orders for this visit: Exposure to blood or body fluid - HIV 1 & 2 ANTIBODY & ANTIGEN SCREEN; Future - HEPATITIS C ANTIBODY; Future - HEPATITIS B CORE ANTIBODY IGM; Future - HEPATITIS B SURFACE ANTIBODY (HBSAB); Future - HEPATITIS B SURFACE ANTIGEN (HBSAG); Future Attention deficit hyperactivity disorder (ADHD), combined type - atomoxetine (STRATTERA) 40 MG Capsule; Take 1 Capsule by mouth daily for 7 days, THEN 2 Capsules daily for 7 days. RUQ pain - CMP (COMPREHENSIVE METABOLIC PANEL); Future - COMPLETE BLOOD COUNT (CBC) WITH DIFF; Future - LIPASE; Future - AMYLASE; Future Chronic bilateral low back pain without sciatica - [facility] OT[facility]PT REFERRAL; Future Discussed with patient regarding medication for ADHD. I believe she would be a good candidate for Strattera. Will start her on this and follow-up in 2 weeks. He lab test ordered for exposure to blood. Discussed with patient regarding right upper quadrant pain. She will wait till she has having a flare up for having labs done if possible. Possibly hyperkinetic gallbladder. She does have a family history of pancreatic cancer in her uncle however he did use alcohol and illicit substances. Referralplaced for PT. Patient will follow-up in 2 weeks. Return in about 2 weeks (around 04/07/2022). documented in this encounter Plan of Treatment Upcoming Encounters Date Type Department Care Team (Late st Contact Info) Description 08/19/2024 8:45 AM POULTRY BONER Office Visit [facility] - [facility] [address] [place] [address] Bessy Alcaraz APRN, CNP [address] [address] Scheduled Referrals Name Type Priority Associated Diagnoses Orde r Schedule [facility] OT[facility] REFERRAL Outpatient Referral Routine Chronic bilateral low back pain without sciatica Expected: 03/24/2022, Expires: 03/24/2023 documented as of this encounter Results * HEPATITIS B SURFACE ANTIGEN (HBSAG) (03/29/2022 1:42 PM CDT) HEPATITIS B SURFACE ANTIGEN NON DETECTED NON DETECTED [facility] ARCH [id number] B 03/29/2022 9:36 PM CDT [facility] Comment:A nonreactive test r esult does not exclude the possibility of exposure to or infection with Hepatitis B virus. A nonreactive test result in individuals with prior exposure to hepatitis B may be due to antigen levels below the detection limit of this assay or lack of antigen reactivity to the antibodies in this assay. Blood Venipuncture / Unknown 03/29/2022 1:42 PM CDT 03/29/2022 2:37 PM CDT us Bessy Alcaraz PATTERN DEVELOPER, BOILERMAKER PIPE FITTER CHEMISTRY ORDERABLES Final Result Performing Organization Address City/[facility]/ZIP Co de Phone Number [facility] [address] [place] [address], [place] * HEPATITIS B SURFACE ANTIBODY (HBSAB) (03/29/2022 1:42 PM CDT) HEPATITIS B SURFACE ANTIBODY <8.00 mIU/mL [facility] ARCH [id number] B 03/29/2022 9:40 PM CDT [facility] Comment:Individual is consid ered not immune to HBV infection. Blood Venipuncture / Unknown 03/29/2022 1:42 PM CDT 03/29/2022 2:37 PM CDT Bessy Alcaraz PATTERN DEVELOPER, BOILERMAKER PIPE FITTER CHEMISTRY ORDERABLES Final Result Performing Organization Address [facility] Co de Phone Number [facility] [address] [place] [address], [place] * HEPATITIS B CORE ANTIBODY IGM (03/29/2022 1:42 PM CDT) HEP B CORE AB (IGM) NON DETECTED NON DETECTED [facility] ARCH [id number] B 03/29/2022 9:36 PM CDT [facility] Comment:IGM anti-HBC not det ected. Does not exclude the possibility of exposure to or infection with HBV. Blood Venipuncture / Unknown 03/29/2022 1:42 PM CDT 03/29/2022 2:37 PM CDT us Bessy Alcaraz PATTERN DEVELOPER, BOILERMAKER PIPE FITTER CHEMISTRY ORDERABLES Final Result Performing Organization Address City/[facility] Co de Phone Number [facility] [address] [place] [address], [place] * HEPATITIS C ANTIBODY (03/29/2022 1:42 PM CDT) hepatitis C antibody 0.09 <1 S/CO [facility] ARCH [id number] B 03/29/2022 9:36 PM CDT [facility] Comment: Signal/Cutoff ratio ??< 0.79 is Nondetected Signal/Cutoff ratio 0.80-0.99 is Grayzone Signal/Cutoff ratio > 0.99 is Detected Supplemental assays are recommended if signal/cutoff ratio is >/=1.00. ??Signal/cutoff ratio result >/= 5.00 is 97% predictive of positivity for recombinant immunoblot assay (RIBA) and will be reported to the [place] Department of Public Health as required. Blood Venipuncture / Unknown 03/29/2022 1:42 PM CDT 03/29/2022 2:37 PM CDT Bessy Alcaraz APRN, CNP CHEMISTRY ORDERABLES Final Result Performing Organization Address [facility]/ZIP Co de Phone Number [facility] [address] [place] [address], [place] * HIV 1 & 2 ANTIBODY & ANTIGEN SCREEN (03/29/2022 1:42 PM CDT) Pathologist [facility] HIV 1 & 2 ANTIBODY & ANTIGEN SCREEN NON DETECTED NON DETECTED [facility] ARCH [id number] B 03/29/2022 11:17 PM CDT [facility] Blood Venipuncture / Unknown 03/29/2022 1:42 PM CDT 03/29/2022 2:37 PM CDT Bessy Alcaraz APRN, CNP LAB SEND OUTS Arlene l Result [facility] [address] [place] [address], [place] * AMYLASE (03/29/2022 1:41 PM CDT) Pathologist [facility] AMYLASE 53 28 - 100 U/L 03/29/2022 3:01 PM CDT [facility] Blood Venipuncture / Unknown 03/29/2022 1:41 PM CDT 03/29/2022 2:37 PM CDT Bessy Alcaraz PATTERN DEVELOPER, BOILERMAKER PIPE FITTER CHEMISTRY ORDERABLES Final Result [facility] [address] [place] [address] * LIPASE (03/29/2022 1:41 PM CDT) LIPASE 22.2 13 - 60 U/L 03/29/2022 3:01 PM CDT [facility] Blood Venipuncture / Unknown 03/29/2022 1:41 PM CDT 03/29/2022 2:37 PM CDT Bessy Kieran MOON, BOILERMAKER PIPE FITTER CHEMISTRY ORDERABLES Final Result Performing Organization Address [facility] Co de Phone Number [facility] [address] [place] [address] * (ABNORMAL) CMP (COMPREHENSIVE METABOLIC PANEL) (03/29/2022 1:41 PM CDT) SODIUM 133(L) 136 - 144 mmol/L 03/29/2022 3:01 PM CDT [facility] POTASSIUM 3.9 3.5 - 5.1 mmol/L 03/29/2022 3:01 PM CDT [facility] CHLORIDE 99(L) 100 - 110 mmol/L 03/29/2022 3:01 PM CDT [facility] CO2, VENOUS 23 22 - 32 mmol/L 03/29/2022 3:01 PM CDT [facility] ANION GAP 14.9 8.0 - 20.0 mmol/L 03/29/2022 3:01 PM CDT [facility] GLUCOSE 87 70 - 99 mg/dL 03/29/2022 3:01 PM CDT [facility] BUN 9 6 - 20 mg/dL 03/29/2022 3:01 PM CDT [facility] CREATININE, BLOOD 0.59(L) 0.60 - 1.10 mg/dL 03/29/2022 3:01 PM [facility] BUN/CREATININE RATIO 15 12 - 20 ratio 03/29/2022 3:01 PM [facility] TOTAL PROTEIN 7.4 6.0 - 8.3 g/dL 03/29/2022 3:01 PM [facility] ALBUMIN 4.4 3.5 - 5.2 g/dL 03/29/2022 3:01 PM [facility] Comment: The colormetric methods used for the determination of Albumin may lead to falsely elevated test results in patients suffering from renal failure or insufficiency due to interference with other proteins. A/G RATIO 1.5 1.0 - 2.0 03/29/2022 3:01 PM [facility] CALCIUM 9.3 8.9 - 10.3 mg/dL 03/29/2022 3:01 PM [facility] T BILI 0.3 <=1.2 mg/dL 03/29/2022 3:01 PM [facility] SGOT (AST) 13 <=32 U/L 03/29/2022 3:01 PM [facility] SGPT (ALT) 14 <=41 U/L 03/29/2022 3:01 PM [facility] ALKALINE PHOSPHATASE 100 35 - 105 U/L 03/29/2022 3:01 PM [facility] IS THE PATIENT REQUIRED TO BE FASTING? No 03/29/2022 3:01 PM [facility] GFR, ESTIMATED >60 >=60 03/29/2022 3:01 PM [facility] Comment: Creatinine Clearance is the preferred criteria for selecting drug dose adjustments in renally impaired patients. ??The GFR is provided as additional pertinent clinical information. GFR is reported in mL/min/1.73 sq m. Calculation based on the Chronic Kidney Disease Epidemiology Collaboration (CKD- EPI) equation refit without adjustment for race. GFR, EST. >60 >=60 022 3:01 PM CDT [facility] GFR, EST. NONAFRICAN >60 >=60 03/29/2022 3:01 PM CDT [facility] Blood Venipuncture / Unknown 03/29/2022 1:41 PM CDT 03/29/2022 2:37 PM CDT Bessy Alcaraz APRN, CNP CHEMISTRY ORDERABLES Final Result [facility] [address] [place] [address] documented in this encounter Visit Diagnoses Diagnosis Exposure to blood or body fluid- Primary Personal history of contact with and (suspected) exposure to potentially hazardous body fluids Attention deficit hyperactivity disorder (ADHD), combined type RUQ pain Abdominal pain, right upper quadrant Chronic bilateral low back pain without sciatica documented in this encounter Additional Health Concerns Infection Onset Date Last Indicated Resolved Time COVID - 19 Confirmed 03/10/2022 03/10/2022 022 12:16 AM CDT Assessment Noted Time PHQ-9 Depression Total Score: 11 022 4:00 PM CDT documented as of this encounter Care Teams Dynamo Repairer Relationship Specialty Start Date End Date Bessy Alcaraz APRN, CNP [address] [address] PCP - General Advanced Practice Nurse 10/30/20 Bessy Alcaraz APRN, CNP [address] [address] Nurse Practitioner Advanced Practice Nurse 10/28/20 documented as of this encounter
--- OUTSIDE RECORDS SUMMARY | 2024-07-28 05:11 | XMS_ITS | Encounter Summary ---
Author Organization [facility] Address [address] [place] [address] Phone Care Team Providers Care Wire Frame Lamp Shade Maker Name Role Phone Bessy Alcaraz APRN, CNP Unavailable +- [phone] Bessy Alcaraz APRN, CNP Primary Care Provid er Reason for Visit * Reason Comments Thyroid Problem New patient * Consult, Test & Initiate Treatment (Less Than 4 Weeks) - Closed Specialty Diagnoses / Procedures Referred By Edmund abrams Referred To Contact Endocrinology Diagnoses Fabian's disease Bessy Alcaraz APRN, CNP [address] [address] Phone: tel: fax: [facility] - Endocrinology - [place] [address] [place] [address] Phone: tel: fax: Referral ID Status Reason Start Date Expiration Date Visits Re quested Visits Authorized [id number] Closed 11/23/2020 1 1 Encounter Details Date Type Department Care Team (Late st Contact Info) Description 03/15/2021 1:15 PM CDT Office Visit [facility] - Endocrinology - [place] [address] [place] [address] Bessy Alcaraz APRN, ARAM [address] [address] Gilbert Herr MD [address] [address] Fabian's disease (Primary Dx); Class 1 obesity due to excess calories with body mass index (BMI) of 34.0 to 34.9 in adult, unspecified whether serious comorbidity present; Striae purple; Irregular menstrual cycle Discharge Disposition: Discharged to home or Selfcare Social History Tobacco Use Types Packs/Day Years Used Date Smoking Tobacco: Never Smokeless Tobacco: Never Tobacco Cessation:Counseling Given: No Alcohol Use Standard Drinks/Week Comments Yes 0 (1 standard drink = 0.6 oz pur e alcohol) Rarely PHQ-2 Answer Date Recorded Total Score - Questions 1-9 12 03/2021 Education Answer Date Recorded What is [...] have Coronavirus / COVID-19? No / Unsure 03/15/2021 12:38 PM CDT documented as of this encounter Last Filed Vital Signs Vital Sign Reading Time Taken Comments Blood Pressure 102/66 03/15/2021 1:22 PM CDT Pulse 77 03/15/2021 1:22 PM CDT Temperature 37.1 ??C (98.8 ??F) 03/15/2021 1:22 PM CD T Respiratory Rate 16 03/15/2021 1:22 PM CDT Oxygen Saturation 98% 03/15/2021 1:22 PM CDT Inhaled Oxygen Concentration - - Weight 79.8 kg (176 lb) 03/15/2021 1:22 PM CDT Height 152.4 cm (5') 03/15/2021 1:22 PM CDT Body Mass Index 34.37 03/15/2021 1:22 PM CDT documented in this encounter Patient Instructions * Patient Instructions* Gilbert Herr MD - 03/15/2021 1:15 PM CDT Please take dexamethasone 1 mg at 11:00 pm and check morning cortisol at 8:00 am Please check thyroid function test, testosterone, estradiol, LH, and FSH Additional steps in management to be determined once result is available for review Follow up visit in 3 months documented in this encounter Progress Notes * Gilbert Herr MD - 03/15/2021 1:15 PM CDT CC: Fabian's thyroiditis and obesity HPI: Cee Aldridge is a 25 -year-old woman who comes to the Endocrinology Offices to review thyroid function test result and discuss management of Fabian's thyroiditis. Other pertinent health history includes obesity. The patient has experienced difficulty losing weight, fatigue, and intermittent abdominal cramp. Ms. Aldridge has a family history of hypothyroidism. Serum TSH checked in Aug 2020 was 1.99 mIU/L (reference range 0.46 to 4.6). Simultaneously measured free T4 was 0.91 ng/mL (reference range 0.76 to 2.19) and free T3 was 3.4 pg/mL (reference range 2.7 to 5.27). TPO AB was 153 IU/mL (0-34). Review of Systems Constitutional: Negative for activity change, appetite change. (+) fatigue, (+) weight loss Eyes: Negative for pain and visual disturbance. Respiratory: Negative for cough and shortness of breath. Cardiovascular: Negative for chest pain and palpitations. Gastrointestinal: Positive for intermittent low abdominal cramp Endocrine: Negative for heat or cold intolerance Past Medical History Positives Diagnosis Date ??? Abdominal pain ??? Anemia ??? Anxiety and depression ??? Gastritis ??? GERD (gastroesophageal reflux disease) ??? Heart murmur 2019 just found, goes to doctor for this 01/08/19 ??? IBS (irritable bowel syndrome) ??? TMJ (temporomandibular joint syndrome) Past Surgical History: Procedure Laterality Date ??? COLONOSCOPY 2016 [place] ??? COLONOSCOPY Left 12/27/2018 Procedure: COLONOSCOPY-HEMORRHOIDS; Surgeon: Scooby Cuellar MD; Location: [facility]; Service: Gastroenterology ??? ORAL SURGERY PROCEDURE Abcess tooth removed and wisdom teeth ??? TONSILLECTOMY Social History Socioeconomic History ??? Marital status: Single Spouse name: Not on file ??? Number of children: Not on file ??? Years of education: Not on file ??? Highest education level: Associate degree: academic program Occupational History ??? Not on file Tobacco Use ??? Smoking status: Never Smoker ??? Smokeless tobacco: Never Used Vaping Use ??? Vaping Use: Never used Substance and Sexual Activity ??? Alcohol use: Yes Comment: Rarely ??? Drug use: Never ??? Sexual activity: Yes control/protection: I.U.D. Other Topics Concern ??? Not on file Social History Narrative ??? Not on file Social Determinants of Health Social determinant risk not applicable to this patient. Family History Problem Relation Age of Onset ??? Chronic Obstructive Pulmonary Disease Mother ??? Hepatitis Mother B ??? Other-comment Father 50 adenocarcinoma head/neck: Mucuosal carcinoma ??? Heart Attack Father ??? High Cholesterol Father ??? Lung Cancer Paternal Aunt ??? Stroke Paternal Aunt ??? Lung Cancer Paternal Uncle ??? Stroke Paternal Uncle ??? Lung Cancer Paternal Grandmother ??? Hypothyroidism Maternal Aunt ??? Hypertension Maternal Aunt ??? Hypothyroidism Maternal Grandmother Vitals: 03/15/21 1322 BP: 102/66 BP Location: Right Arm BP Position: Sitting BP Cuff Size: Large Pulse: 77 Resp: 16 Temp: 98.8 ??F (37.1 ??C) TempSrc: Temporal SpO2: 98% Weight: 176 lb (79.8 kg) Height: 5' (1.524 m) Objective: Physical Exam Constitutional: appears well-developed and well-nourished. No acute distress. Head: Normocephalic and atraumatic. Eyes: EOM are normal, Not icteric Neck: The patient's neck was supple, and no cervical lymphadenopathy was appreciated. The patient'sthyroid was approximately 10 g to 15 g in size. Lymph Node: No cervical, clavicular, or posterior auricular lymphadenopathy Cardiovascular: Normal rate and regular rhythm Pulmonary/Chest: Effort normal and breath sounds normal Neurological: No significant tremor noted on arms extended DIAGNOSTIC DATA: Medical record including test result from PCP's office reviewed. Assessment and Plan Ms. 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 Test result and natural course of Fabian's thyroiditis were discussed with her at some length. Arrangement will be made for thyroid function test. Additional steps in management to be determined once result is available for review. PLAN: 1. Check thyroid function test 2. Further plan based on #1 Obesity and reddish abdominal striae PLAN: 1. Check overnight dexamethasone suppression test 2. Start Victoza 0.6 mg SC daily for 2 weeks, 1.2 mg SC daily for 2 weeks, then increase it to 1.8 mg SC daily Potential PCOS PLAN: 1. Check LH, FSH, and testosterone 2. Further plan based on #1 ??? Total time spent on this encounter on this date of service, including pre- visit review of separately obtained history, [id number] interaction performing medically appropriate physical exam, patient counseling/education, interpretation of diagnostic results, care coordination and documentationwas 61 minute Gilbert Herr MD 03/15/2021 documented in this encounter Plan of Treatment Upcoming Encounters Date Type Department Care Team (Late st Contact Info) Description 08/19/2024 8:45 AM MALT HOUSE SUPERVISOR Office Visit [facility] - Family Medicine [facility] [address] [place] [id number] Bessy Alcaarz APRN, FINANCE DIRECTOR [address] [phone] Scheduled Orders Name Type Priority Associated Diagnoses Orde r Schedule THYROID STIMULATING HORMONE (TSH) Lab Routine Fabian's disease Class 1 obesity due to excess calories with body mass index (BMI) of 34.0 to 34.9 in adult, unspecified whether serious comorbidity present Striae purple Irregular menstrual cycle Expected: 03/15/2021, Expires: 09/15/2021 THYROXINE (T4) FREE Lab Routine Fabian's disease Class 1 obesity due to excess calories with body mass index (BMI) of 34.0 to 34.9 in adult, unspecified whether serious comorbidity present Striae purple Irregular menstrual cycle Expected: 03/15/2021, Expires: 09/15/2021 FREE AND TOTAL TESTOSTERONE Lab Routine Fabian's disease Class 1 obesity due to excess calories with body mass index (BMI) of 34.0 to 34.9 in adult, unspecified whether serious comorbidity present Striae purple Irregular menstrual cycle Expected: 03/15/2021, Expires: 09/15/2021 CORTISOL Lab Routine Fabian's disease Class 1 obesity due to excess calories with body mass index (BMI) of 34.0 to 34.9 in adult, unspecified whether serious comorbidity present Striae purple Irregular menstrual cycle Expected: 03/15/2021, Expires: 09/15/2021 FOLLICLE STIMULATING HORMONE (FSH) Lab Routine Fabian's disease Class 1 obesity due to excess calories with body mass index (BMI) of 34.0 to 34.9 in adult, unspecified whether serious comorbidity present Striae purple Irregular menstrual cycle Expected: 03/15/2021, Expires: 09/15/2021 LUTEINIZING HORMONE (LH) Lab Routine Fabian's disease Class 1 obesity due to excess calories with body mass index (BMI) of 34.0 to 34.9 in adult, unspecified whether serious comorbidity present Striae purple Irregular menstrual cycle Expected: 03/15/2021, Expires: 09/15/2021 ESTRADIOL Lab Routine Fabian's disease Class 1 obesity due to excess calories with body mass index (BMI) of 34.0 to 34.9 in adult, unspecified whether serious comorbidity present Striae purple Irregular menstrual cycle Expected: 03/15/2021, Expires: 09/15/2021 documented as of this encounter Visit Diagnoses Diagnosis Fabian's disease- Primary Chronic lymphocytic thyroiditis Class 1 obesity due to excess calories with body mass index (BMI) of 34.0 to 34.9 in adult, unspecified whether serious comorbidity present Striae purple Striae atrophicae Irregular menstrual cycle documented in this encounter Additional Health Concerns Assessment Noted Time PHQ-9 Depression Total Score: 12 10/30/ 021 3:00 PM CDT documented as of this encounter Care Teams Wire Frame Lamp Shade Maker Relationship Specialty Start Date End Date Bessy Alcaraz APRN, ARAM [address] [address] PCP - General Advanced Practice Nurse 10/30/20 Bessy Alcaraz APRN, ARAM [address] [phone] Nurse Practitioner Advanced Practice Nurse 10/28/20 documented as of this encounter
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
--- OUTSIDE RECORDS SUMMARY | 2024-07-28 05:11 | XMS_ITS | Encounter Summary ---
Author Organization [facility] [id number] Care Team Providers Care Product Managent Intern Name Role Phone Bessy Alcaraz APRN, CNP Unavailable [phone] Bessy Alcaraz APRN, CNP Primary Care Provid er Encounter Details Date Type Department Care Team (Latest Contact Info) Description 04/05/2022 Travel Social History Tobacco Use Types Packs/Day [...] suspected to have Coronavirus/COVID-19? No / Unsure 04/05/2022 9:50 AM CDT documented as of this encounter Plan of Treatment Upcoming Encounters Date Type Department Care Team (Late st Contact Info) Description 08/19/2024 8:45 AM IMPREGNATOR OPERATOR Office Visit [facility] #[address] [place] [address] Bessy Alcaraz APRN, CNP #[address] [phone] documented as of this encounter Visit Diagnoses Not on filedocumented in this encounter Additional Health Concerns Assessment Noted Time PHQ-9 Depression Total Score: 11 10/26/ 022 4:00 PM CDT documented as of this encounter Care Teams Product Managent Intern Relationship Specialty Start Date End Date Bessy Alcaraz APRN, ARAM #[address] [phone] PCP - General Advanced Practice Nurse 10/30/20 Bessy Alcaraz APRN, ARAM #[address] [address] Nurse Practitioner Advanced Practice Nurse 10/28/20 documented as of this encounter
--- OUTSIDE RECORDS SUMMARY | 2024-07-28 05:11 | XMS_ITS | Encounter Summary ---
Author Organization [facility] Address [address] [place] [address] Phone Care Team Providers Care Design Center Consultant Name Role Phone Bessy Alcaraz APRN, CNP Unavailable + [phone] Bessy Alcaraz APRN, CNP Primary Care Provid er Reason for Visit * Reason Comments Follow-up weight Encounter Details Date Type Department Care Team (Late st Contact Info) Description 12/14/2020 3:45 PM CDT Office [facility] [place] [address] Bessy Alcaraz APRN, CNP #[address] [address] Follow-up encounter involving medication (Primary Dx); BMI 36.0-36.9,adult; High risk medication use Discharge Disposition: Discharged to home or Selfcare Social History Tobacco Use Types Packs/Day Years Used Date Smoking Tobacco: Never Smokeless Tobacco: Never Tobacco Cessation:Counseling Given: No Alcohol Use Standard Drinks/Week Comments Yes 0 (1 standard drink = 0.6 oz pur e alcohol) Rarely PHQ-2 Answer Date Recorded Total Score - Questions 1-9 12 03/2021 Sexually Active Control Partners Comments Yes I.U.D. [...] have Coronavirus / COVID-19? No / Unsure 12/14/2020 3:32 PM CDT documented as of this encounter Last Filed Vital Signs Vital Sign Reading Time Taken Comments Blood Pressure 126/86 12/14/2020 3:49 PM CDT Pulse 70 12/14/2020 3:49 PM CDT Temperature 36.9 ??C (98.4 ??F) 12/14/2020 3:49 PM CD T Respiratory Rate 18 12/14/2020 3:49 PM CDT Oxygen Saturation 97% 12/14/2020 3:49 PM CDT Inhaled Oxygen Concentration - - Weight 84.6 kg (186 lb 6.4 oz) 12/14/2020 3:49 P M CDT Height 152.4 cm (5') 12/14/2020 3:49 PM CDT Body Mass Index 36.4 12/14/2020 3:49 PM CDT documented in this encounter Progress Notes * Ania Montaño MA - 12/14/2020 3:45 PM CDT Cee Ede Aldridge, 25 y.o., female is here for Follow-up (Thyroid) Medication Refills: Patient reports/denies need for medication refills. Orders Pended: no Requested Prescriptions No prescriptions requested or ordered in this encounter Home Medications Medication Sig Start Date End Date Taking? Authorizing Provider acetaminophen (TYLENOL) 325 MG Tablet Take 325 mg by mouth every 4 hours as needed. Yes Raymundo Luong MD ibuprofen (MOTRIN) 200 MG Tablet Take 200 mg by mouth every 8 hours as needed. Yes Raymundo Luong MD levonorgestrel (Kyleena) 19.5 MG IUD intrauterine device (IUD) 09/21/17 Raymundo Luong MD linaCLOtide (Linzess) 72 MCG Capsule Take 1 Cap by mouth every morning (before breakfast). 04/13/20 Yes Erinn Montelongo PAC Phentermine HCl 15 MG Capsule Take 1 Capsule by mouth daily for 30 days. 11/23/20 12/23/20 Yes Bessy Alcaraz APN, FRAUD EXAMINER There are no discontinued medications. I have [...] Tdap) 12/12/2003 ??? Pap Smear Never done Orders Pended: no The following BPA's have been addressed with the patient today: No BPA's at this time * Bessy Alcaraz APN, CNP - 12/14/2020 3:45 PM CDT [facility] [address] Dept: [phone] Dept Loc: [phone] Loc Patient: Cee Aldridge : 1995 Sex: female Subjective Subjective: HPI: Cee Aldridge presents for Follow-up (weight) . Patient presents today for follow-up for medication follow-up. Patient was started on phentermine 15 mg daily for obesity. She has not noted any changes in her weight and she is not experiencing any side effects. Past Medical History Positives Diagnosis Date ??? Abdominal pain ??? Anemia ??? Anxiety and depression ??? Gastritis ??? GERD (gastroesophageal reflux disease) ??? Heart murmur 2019 just found, goes to doctor for this 01/08/19 ??? IBS (irritable bowel syndrome) ??? TMJ (temporomandibular joint syndrome) Current Outpatient Medications on File Prior to Visit Medication Sig Dispense Refill ??? acetaminophen (TYLENOL) 325 MG Tablet Take 325 mg by mouth every 4 hours as needed. ??? ibuprofen (MOTRIN) 200 MG Tablet Take 200 mg by mouth every 8 hours as needed. ??? levonorgestrel (Kyleena) 19.5 MG IUD intrauterine device (IUD) ??? linaCLOtide (Linzess) 72 MCG Capsule Take 1 Cap by mouth every morning (before breakfast). 30 Cap 2 No current facility-administered medications on file prior to visit. No Known Allergies Review of Systems Constitutional: Negative for activity change, appetite change, chills, diaphoresis, fever and unexpected weight change. Respiratory: Negative for cough, chest tightness, shortness of breath and wheezing. Cardiovascular: Negative for chest pain, palpitations and leg swelling. Gastrointestinal: Negative for abdominal pain, constipation, diarrhea, nausea and vomiting. Neurological: Negative for dizziness and headaches. Psychiatric/Behavioral: Negative for agitation, confusion, dysphoric mood, sleep disturbance and suicidal ideas. The patient is not nervous/anxious and is not hyperactive. Objective Objective: BP 126/86 (BP Location: Left Arm, BP Position: Sitting, BP Cuff Size: Regular) Pulse 70 Temp 98.4 ??F (36.9 ??C) (Temporal) Resp 18 Ht 5' (1.524 m) Wt 186 lb 6.4 oz (84.6 kg) LMP 03/18/2020 (LMP Unknown) SpO2 97% BMI 36.40 kg/m?? Physical Exam Constitutional: General: She is not in acute [...] No hernia is present. Musculoskeletal: General: No tenderness. Normal range of motion. Cervical back: Normal range of motion and neck supple. No tenderness. Skin: General: Skin is dry. Capillary Refill: [...] Diagnoses and all orders for this visit: Follow-up encounter involving medication BMI 36.0-36.9,adult - Phentermine HCl 37.5 MG Tablet; Take 1 Tablet by mouth every morning (before breakfast). High risk medication use Patient has not noted any change on phentermine. Patient has lost 1 lb since starting phentermine. Will increase her dose to 30 mg daily and then will send for the 37.5 mg for to start after this prescription is out. Patient verbalizes understanding. Follow-up in 4 weeks for weight recheck. Return in about 4 weeks (around 01/11/2021). documented in this encounter Plan of Treatment Upcoming Encounters Date Type Department Care Team (Late st Contact Info) Description 08/19/2024 8:45 AM TURBINE BLADE ASSEMBLER Office [facility] [address] [place] [phone] Bessy Alcaraz APRN, CNP [address] [address] [phone] documented as of this encounter Visit Diagnoses Diagnosis Follow-up encounter involving medication- Primary BMI 36.0-36.9,adult Body Mass Index 36.0-36.9, adult High risk medication use Encounter for long-term (current) use of other medications documented in this encounter Additional Health Concerns Assessment Noted Time PHQ-9 Depression Total Score: 12 021 3:00 PM CDT documented as of this encounter Care Teams Design Center Consultant Relationship Specialty Start Date End Date Bessy Alcaraz APRN, ARAM #[address] [address] PCP - General Advanced Practice Nurse 10/30/20 Bessy Alcaraz APRN, CNP #[address] [address] Nurse Practitioner Advanced Practice Nurse 10/28/20 documented as of this encounter
--- OUTSIDE RECORDS SUMMARY | 2024-07-28 05:11 | XMS_ITS | Encounter Summary ---
Author Organization [facility] Address [address] [place] [address] Phone Care Team Providers Care Labeling Associate Name Role Phone Bessy Alcaraz APRN, CNP Unavailable Bessy Alcaraz APRN, CNP Primary Care Provid er Reason for Visit * Reason Onset Date Comments COVID-19 Exposure 07/28/2021 Encounter Details Date Type Department Care Team (Late st Contact Info) Description 07/28/2021 Nurse Triage [facility] [address] [place] [address] Bessy Alcaraz APRN, ARAM [address] [address] COVID-19 Exposure Social History Tobacco Use Types Packs/Day Years [...] or suspected to have Coronavirus / COVID-19? Yes 07/28/2021 1:34 PM SENIOR MECHANICAL DESIGNER documented as of this encounter Miscellaneous Notes * Telephone Encounter - eBssy Alcaraz APRN, CNP - 07/28/2021 2:45 PM SENIOR MECHANICAL DESIGNER If she doesn't have a fever then no need to test for influenza. She may have tested to early, I have seen many patient who will have negative rapid or home test and then a positive PCR. She needs tested for covid. The booster is not fully in effect until it has been two weeks after it is given. OR MECHANICAL DESIGNER * Telephone Encounter - Kia Murphy RN - 07/28/2021 1:34 PM SENIOR MECHANICAL DESIGNER Images from the original note were not included. SITUATION: COVID Exposure BACKGROUND: Patient's boyfriend tested positive for COVID two days ago via the at home COVID test. He was symptomatic. Patient lives with her boyfriend and now has symptoms. ASSESSMENT: Patient's symptoms started On Monday07/26/20. Patient just took the at home test todayand she was negative. Patient states she is short of breath with activity. When she is sitting she is not short of breath. Patient denies fever. She has multiple symptoms of COVID. Patient has been vaccinated and she had her booster last Monday07/19/21. Appointment made: Patient will be getting tested at work for COVID but she is wondering if she should also be tested for influenza. Please advise. Travel Screening Question Response In the last month, have you been in contact with someone who was confirmed or suspected to have Coronavirus / COVID-19? Yes Have you had a COVID-19 viral test in the last 14 days? Yes - Negative result Do you have any of the following new or worsening symptoms? Severe headache;Weakness;Muscle pain;Chills;Cough;Shortness of breath;Sore throat;Runny nose;Fatigue Have you traveled internationally in the last month? No Travel History Travel since 06/27/21 No documented travel since 06/27/21 COVID-19 Testing Priority for Cee Aldridge: 1 RECOMMENDATION: See care advice and disposition for Guideline First positive answer recorded, all responses to prior questions were negative. If symptoms increase, change or if new symptoms develop, call your HCP or call back. Recommendations were based on caller information and is not a diagnosis. Verified and reviewed all triage information with caller. Reason for Disposition ??? [1] COVID-19 infection suspected by caller or triager AND [2] mild symptoms (cough, fever, or others) AND [3] negative COVID-19 rapid test Protocols used: CORONAVIRUS (COVID-19) DIAGNOSED OR [id number] OR MECHANICAL DESIGNER documented in this encounter Plan of Treatment Upcoming Encounters Date Type Department Care Team (Late st Contact Info) Description 08/19/2024 8:45 AM SENIOR MECHANICAL DESIGNER Office Visit [facility] - [facility] Medicine [facility] [address] [place] [address] Bessy Alcaraz APRN, ARAM [address] [address] documented as of this encounter Visit Diagnoses Not on filedocumented in this encounter Additional Health Concerns Assessment Noted Time PHQ-9 Depression Total Score: 12 021 3:00 PM CDT documented as of this encounter Care Teams Labeling Associate Relationship Specialty Start Date End Date Bessy Alcaraz APRN, CNP [address] [address] PCP - General Advanced Practice Nurse 10/30/20 Bessy Alcaraz APRN, CNP [address] [address] Nurse Practitioner Advanced Practice Nurse 10/28/20 documented as of this encounter
--- OUTSIDE RECORDS SUMMARY | 2024-07-28 05:11 | XMS_ITS | Encounter Summary ---
Author Organization [facility] Address [address] [place] [address] Phone Care Team Providers Care Hospital Supervisor Name Role Phone Bessy Alcaraz APRN, ARAM Unavailable + [phone] Bessy Alcaraz APRN, CNP Primary Care Provid er Reason for Visit * Reason Comments School/Camp Physical Encounter Details Date Type Department Care Team (Late st Contact Info) Description 02/05/2021 11:30 AM CDT Office Visit [facility] - [facility] Medicine - [place] [address] [place] [address] Nisha Mercer, JAAJ [address] [place] [address] Well adult exam (Primary Dx) Discharge Disposition: Discharged to home [...] have Coronavirus / COVID-19? No / Unsure 02/05/2021 10:54 AM CDT documented as of this encounter Last Filed Vital Signs Vital Sign Reading Time Taken Comments Blood Pressure 106/66 02/05/2021 11:23 AM CDT Pulse 74 02/05/2021 11:23 AM CDT Temperature 36.4 ??C (97.6 ??F) 02/05/2021 11:23 AM C DT Respiratory Rate 16 02/05/2021 11:23 AM CDT Oxygen Saturation 98% 02/05/2021 11:23 AM CDT Inhaled Oxygen Concentration - - Weight 81 kg (178 lb 8 oz) 02/05/2021 11:23 AM C DT Height 152.4 cm (5') 02/05/2021 11:23 AM CDT Body Mass Index 34.86 02/05/2021 11:23 AM CDT documented in this encounter Progress Notes * Yelena Alberts, LORENA - 02/05/2021 11:30 AM CDT Cee Aldridge, 25 y.o., female is here for School/Camp Physical Medication Refills: Patient reports/denies need for medication refills. Orders Pended: no Requested Prescriptions No prescriptions requested or ordered in this encounter Home Medications Medication Sig Start Date End Date Taking? Authorizing Provider acetaminophen (TYLENOL) 325 MG Tablet Take 325 mg by mouth every 4 hours as needed. Raymundo Luong MD ibuprofen (MOTRIN) 200 MG Tablet Take 200 mg by mouth every 8 hours as needed. Raymundo Luong MD levonorgestrel (Kyleena) 19.5 MG IUD intrauterine device (IUD) 09/21/17 Yes Raymundo Luong MD linaCLOtide (Linzess) 72 MCG Capsule Take 1 Cap by mouth every morning (before breakfast). Patient not taking: Reported on 02/05/2021 04/13/20 Erinn Montelongo, PAC ondansetron (ZOFRAN-ODT) 4 MG TABLET DISPERSIBLE 12/17/20 Raymundo Luong MD Phentermine HCl 37.5 MG Tablet Take 1 Tablet by mouth every morning (before breakfast). 01/29/21 Yes Nisha Mercer PAC There are no discontinued medications. I have [...] Drug use: Never Smoking Cessation Counseling Given: n/a Health Care Maintenance: Health Maintenance Due Topic Date Due ??? DTaP/Tdap/Td Immunization (4 - Tdap) 12/12/2003 ??? Pap Smear Never done Orders Pended: no The following BPA's have been addressed with the patient today: Pap * Nisha Mercer PAC - 02/05/2021 11:30 AM CDT Subjective: Patient in the office needs physical for school Denies acute problem Has ibs with constipation Review of Systems Constitutional: Negative for chills and fever. HENT: Negative for sore throat. Eyes: Negative for visual disturbance. Respiratory: Negative for cough and shortness of breath. Cardiovascular: Negative for chest pain and palpitations. Gastrointestinal: Positive for constipation. Negative for vomiting. Genitourinary: Negative for difficulty urinating. Musculoskeletal: Negative for arthralgias. Skin: Negative for rash. Neurological: Negative for dizziness and light-headedness. Objective: Physical Exam Vitals reviewed. Constitutional: Appearance: Normal appearance. She is not ill-appearing. HENT: Head: Normocephalic and atraumatic. Right Ear: Tympanic membrane normal. There is no impacted cerumen. Left Ear: Tympanic membrane normal. There is no impacted cerumen. Mouth/Throat: Mouth: Mucous membranes are moist. Pharynx: Oropharynx is clear. Eyes: General: Right eye: No discharge. Left eye: No discharge. Extraocular Movements: Extraocular movements intact. Neck: Vascular: No carotid bruit. Cardiovascular: Rate and Rhythm: Normal rate and regular rhythm. Heart sounds: No murmur heard. Pulmonary: Effort: Pulmonary effort is normal. No respiratory distress. Breath sounds: Normal breath sounds. No wheezing. Abdominal: General: There is no distension. Palpations: Abdomen is soft. Tenderness: There is no abdominal tenderness. Musculoskeletal: General: Normal range of motion. Skin: General: Skin is warm. Neurological: General: No focal deficit present. Mental Status: She is alert. Psychiatric: Mood and Affect: Mood normal. Assessment and Plan See Diagnoses, Orders, Follow-up, and Instructions .Diagnoses and all orders for this visit: Well adult exam Form completed, rtc as scheduled for follow up with pcp documented in this encounter Plan of Treatment Upcoming Encounters Date Type Department Care Team (Late st Contact Info) Description 08/19/2024 8:45 AM SENIOR ENGINEERING SPECIALIST Office Visit [facility] [address] [place] [address] Bessy Alcaraz APRN, CNP [address] [address] documented as of this encounter Visit Diagnoses Diagnosis Well adult exam- Primary Routine general medical examination at a health care facility documented in this encounter Additional Health Concerns Assessment Noted Time PHQ-9 Depression Total Score: 12 021 3:00 PM CDT documented as of this encounter Care Teams Hospital Supervisor Relationship Specialty Start Date End Date Bessy Alcaraz APRN, CNP [address] [address] PCP - General Advanced Practice Nurse 10/30/20 Bessy Alcaraz APRN, CNP [address] [address] Nurse Practitioner Advanced Practice Nurse 10/28/20 documented as of this encounter
--- OUTSIDE RECORDS SUMMARY | 2024-07-28 05:11 | XMS_ITS | Encounter Summary ---
Author Organization [facility] Address [address] [place] [address] Phone Care Team Providers Care Director Enterprise Systems Name Role Phone Bessy Alcaraz APRN, CNP Unavailable +- [phone] Bessy Alcaraz APRN, CNP Primary Care Provid er Reason for Referral * Radiology Services (Routine) - Closed Specialty Diagnoses / Procedures Referred By Contac t Referred To Contact Radiology Diagnoses Chronic bilateral low back pain without sciatica Procedures XR SACROILIAC JOINTS, COMPLETE Bessy Alcaraz APRN, CNP #[address] [address] Phone: tel: fax: Referral ID Status Reason Start Date Expiration Date Visits Re quested Visits Authorized [id number] Closed 01/20/2022 1 1 * Radiology Services (Routine) - Closed Specialty Diagnoses / Procedures Referred By Contac t Referred To Contact Radiology Diagnoses Chronic bilateral low back pain without sciatica Procedures XR LUMBAR SPINE MINIMUM 4 VIEWS Bessy Alcaraz APRN, CNP #[address] [address] Phone: tel: fax: Referral ID Status Reason Start Date Expiration Date Visits Re quested Visits Authorized [id number] Closed 01/20/2022 1 1 Reason for Visit * Reason Comments Results Patient is here toda y for lab results. Encounter Details Date Type Department Care Team (Late st Contact Info) Description 01/20/2022 7:45 AM CDT Office Visit [facility] [place] [address] [place] [address] Bessy Alcaraz APRN, ARAM [address] [address] Fabian's disease (Primary Dx); Chronic bilateral low back pain without sciatica [...] suspected to have Coronavirus/COVID-19? No / Unsure 01/20/2022 8:17 AM CDT documented as of this encounter Last Filed Vital Signs Vital Sign Reading Time Taken Comments Blood Pressure 104/66 01/20/2022 7:35 AM CDT Pulse 67 01/20/2022 7:35 AM CDT Temperature 36.3 ??C (97.4 ??F) 01/20/2022 7:35 AM CD T Respiratory Rate 14 01/20/2022 7:35 AM CDT Oxygen Saturation 98% 01/20/2022 7:35 AM CDT Inhaled Oxygen Concentration - - Weight 83.5 kg (184 lb 1.6 oz) 01/20/2022 7:35 A M CDT Height 152.4 cm (5') 01/20/2022 7:35 AM CDT Body Mass Index 35.95 01/20/2022 7:35 AM CDT documented in this encounter Progress Notes * Eduarda Cooper RMA - 01/20/2022 7:45 AM CDT Cee March is a 26 y.o. female with current BMI: There is no height or weight on file to calculate BMI. Interventions discussed including: encourage daily physical activity and well- balanced diet. * Eduarda Cooper RMA - 01/20/2022 7:45 AM CDT Cee March, 26 y.o., female is here for Results (Patient is here today for lab results. ) Medication Refills: Patient reports/denies need for medication refills. Orders Pended: no Requested Prescriptions No prescriptions requested or ordered in this encounter Home Medications Medication Sig Start Date End Date Taking? Authorizing Provider levonorgestrel (Kyleena) 19.5 MG IUD intrauterine device (IUD) Patient not taking: Reported on 01/20/2022 09/21/17 Provider, MD Raymundo There are no discontinued [...] been addressed with the patient today: BMI and Pap * Bessy Alcaraz APRN, ARAM - 01/20/2022 7:45 AM CDT Images from the original note were not included. [facility] [place] [address] [facility] [address] Dept: [phone] Dept Loc: [phone] Loc Patient: Cee March : 1995 Sex: female Subjective Subjective: HPI: Cee March presents for Results (Patient is here today for lab results. ) . Patient presents today for lab results and discuss chronic pain. She has been seeing a chiropractor for the last few months. The chiropractor was concerned about a herniated. She continued to have intermittent numbness in her feet. This is very sporadic, last timewas over three weeks ago. The pain is better in the morning and worse throughout the day. It is a dull pain. She is taking tylenol PRN. She works about 30-40 hours a week. Her pain is worse with working. Past Medical History Positives Diagnosis Date ??? [...] No Known Allergies Review of Systems Constitutional: Positive for activity change. Negative for appetite change, chills, diaphoresis, fatigue and fever. Respiratory: Negative for cough, chest tightness, shortness of breath and wheezing. Cardiovascular: Negative for chest pain and palpitations. Endocrine: Negative for cold intolerance and heat intolerance. Musculoskeletal: Positive for back pain. Negative for arthralgias, gait problem, joint swelling, myalgias, neck pain and neck stiffness. Skin: Negative for rash and wound. Neurological: Positive for numbness. Negative for dizziness, weakness and headaches. Objective Objective: BP 104/66 (BP Location: Right Arm, BP Position: Sitting, BP Cuff Size: Regular) Pulse 67 Temp 97.4 ??F (36.3 ??C) (Temporal) Resp 14 Ht 5' (1.524 m) Wt 184 lb 1.6 oz (83.5 kg) LMP 03/18/2020 (LMP Unknown) SpO2 98% BMI 35.95 kg/m?? Physical Exam Vitals and nursing note [...] No wheezing, rhonchi or rales. Musculoskeletal: General: Normal range of motion. Cervical back: Normal range of motion. Lumbar back: Tenderness present. No swelling, deformity, lacerations, spasms or bony tenderness. Normal range of motion. Negative right straight leg raise test and negative left straight leg raise test. No scoliosis. Back: Skin: General: Skin is warm and dry. Neurological: General: No focal deficit present. Mental Status: She is alert and oriented to person, place, and time. Mental status is at baseline. Psychiatric: Mood and Affect: Mood normal. Behavior: Behavior normal. Thought Content: Thought content normal. Judgment: Judgment normal. Vital Signs Vitals: 01/20/22 0735 BP: 104/66 BP Location: Right Arm BP Position: Sitting BP Cuff Size: Regular Pulse: 67 Resp: 14 Temp: 97.4 ??F (36.3 ??C) TempSrc: Temporal SpO2: 98% Weight: 184 lb 1.6 oz (83.5 kg) Height: 5' (1.524 m) Lab Results Appointment on 01/18/2022 Component Date Value Ref Range Status ??? TSH 01/18/2022 1.870 0.270 - 4.200 mIU/L Final ??? T4 FREE 01/18/2022 1.1 0.9 - 1.7 ng/dL Final ??? FREE T3 01/18/2022 2.7 1.6 - 3.9 pg/mL Final ??? SODIUM 01/18/2022 130 (A) 136 - 144 mmol/L Final ??? POTASSIUM 01/18/2022 3.9 3.5 - 5.1 mmol/L Final ??? CHLORIDE 01/18/2022 99 (A) 100 - 110 mmol/L Final ??? CO2, VENOUS 01/18/2022 21 (A) 22 - 32 mmol/L Final ??? ANION GAP 01/18/2022 13.9 8.0 - 20.0 mmol/L Final ??? GLUCOSE 01/18/2022 87 70 - 99 mg/dL Final ??? BUN 01/18/2022 7 6 - 20 mg/dL Final ??? CREATININE, BLOOD 01/18/2022 0.51 (A) 0.60 - 1.10 mg/dL Final ??? BUN/CREATININE RATIO 01/18/2022 14 12 - 20 ratio Final ??? TOTAL PROTEIN 01/18/2022 7.2 6.0 - 8.3 g/dL Final ??? ALBUMIN 01/18/2022 4.4 3.5 - 5.2 g/dL Final The colormetric methods used for the determination of Albumin may lead to falsely elevated test results in patients suffering from renal failure or insufficiency due to interference with other proteins. ??? A/G RATIO 01/18/2022 1.6 1.0 - 2.0 Final ??? CALCIUM 01/18/2022 9.0 8.9 - 10.3 mg/dL Final ? ? T BILI 01/18/2022 0.3 <=1.2 mg/dL Final ? ? SGOT (AST) 01/18/2022 18 <=32 U/L Final ? ? SGPT (ALT) 01/18/2022 13 <=41 U/L Final ??? ALKALINE PHOSPHATASE 01/18/2022 104 35 - 105 U/L Final ? ? GFR, EST. NONAFRICAN 01/18/2022 >60 >=60 Final ? ? GFR, EST. 01/18/2022 >60 >=60 Final Creatinine Clearance is the preferred criteria for selecting drug dose adjustments in renally impaired patients. The GFR is provided as additional pertinent clinical information. GFR is reported in mL/min/1.73 sq m. ??? IS THE PATIENT REQUIRED TO BE FAST* 01/18/2022 No Final ??? WBC 01/18/2022 5.93 4.00 - 12.00 10(3)/mcL Final ??? RBC 01/18/2022 4.48 3.80 - 5.30 10(6)/mcL Final ??? HEMOGLOBIN (HGB) 01/18/2022 13.9 12.0 - 15.8 g/dL Final ??? HEMATOCRIT (HCT) 01/18/2022 41.6 36.0 - 47.0 % Final ??? MCV 01/18/2022 92.9 82.0 - 96.0 fL Final ??? MCH 01/18/2022 31.0 26.0 - 34.0 pg Final ??? MCHC 01/18/2022 33.4 31.0 - 36.0 g/dL Final ??? PLATELET COUNT 01/18/2022 288 140 - 440 10(3)/mcL Final ??? RDW 01/18/2022 12.2 11.8 - 15.5 % Final ??? MPV 01/18/2022 11.1 9.7 - 12.4 fL Final ??? NEUTROPHILS 01/18/2022 57.0 47.0 - 73.0 % Final ??? LYMPHOCYTES 01/18/2022 30.5 18.0 - 42.0 % Final ??? MONOCYTES 01/18/2022 7.3 4.0 - 12.0 % Final ??? EOSINOPHILS 01/18/2022 4.2 0.0 - 5.0 % Final ??? BASOPHILS 01/18/2022 1.0 0.0 - 1.0 % Final ??? ABSOLUTE NEUTROPHILS 01/18/2022 3.38 1.60 - 7.70 10(3)/mcL Final ??? ABSOLUTE LYMPHOCYTES 01/18/2022 1.81 1.30 - 3.20 10(3)/mcL Final ??? ABSOLUTE MONOCYTES 01/18/2022 0.43 0.20 - 1.00 10(3)/mcL Final ??? ABSOLUTE EOSINOPHIL 01/18/2022 0.25 0.00 - 0.40 10(3)/mcL Final ??? ABSOLUTE BASOPHILS 01/18/2022 0.06 0.00 - 0.10 10(3)/mcL Final ??? NRBC PER 100 WBC 01/18/2022 0 Final Lab Results Component Value Date WBC 5.93 01/18/2022 HEMOGLOBIN 13.9 01/18/2022 HEMATOCRIT 41.6 01/18/2022 PLATELETCNT 288 01/18/2022 Lab Results Component Value Date SODIUM 130 (L) 01/18/2022 POTASSIUM 3.9 01/18/2022 CHLORIDE 99 (L) 01/18/2022 CO2VEN 21 (L) 01/18/2022 ANIONGAP 13.9 01/18/2022 GLUCOSE 87 01/18/2022 BUN 7 01/18/2022 CREATININE 0.51 (L) 01/18/2022 BCRATIO8 14 01/18/2022 TOTALPROTEIN 7.2 01/18/2022 ALBUMIN 4.4 01/18/2022 CALCIUM 9.0 01/18/2022 TBIL 0.3 01/18/2022 SGOTAST 18 01/18/2022 SGPTALT 13 01/18/2022 ALKALINEPHO 104 01/18/2022 GFRNA >60 01/18/2022 GFRA >60 01/18/2022 TSH 1.870 01/18/2022 FREET3 2.7 01/18/2022 T4FREE 1.1 01/18/2022 Please see results review for comprehensive lab results. 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 Recommended physical therapy. Will wait till x-ray results are back. Otherwise lab work looks good. Patient verbalized understanding. Return in 6 months, sooner if needed. Return in about 6 months (around 07/22/2022). 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 Negative exam. Narrative 01/20/2022 5:12 PM CDT EXAM DESCRIPTION: ?? XR SACROILIAC JOINTS, COMPLETE REASON FOR STUDY: ?? Low back pain, unspecified ??chronic low back pain TECHNIQUE: ??AP and oblique ??views of the sacroiliac joints. COMPARISON: ?? None FINDINGS: BONES/JOINTS: ?? No acute fracture or dislocation. No suspicious bone lesion. ??Joint spaces are maintained with no erosions or significant osteophytes. SOFT TISSUES: ?? Unremarkable. OTHER: ?? No other significant finding. THIS IS AN ELECTRONICALLY VERIFIED FINAL REPORT 01/20/2022 5:09 PM - Electronically signed by ??Tommy Malik M.D. RW: NAZARIO D: ??01/20/2022 5:09 PM T: ??01/20/2022 5:09 PM Report ID: [id number] Reading Location: ??[id number] Procedure Note Tommy Malik MD - 01/20/2022 EXAM DESCRIPTION: XR SACROILIAC JOINTS, COMPLETE REASON FOR STUDY: Low back pain, unspecified chronic low back pain TECHNIQUE: AP and oblique views of the sacroiliac joints. COMPARISON: None FINDINGS: BONES/JOINTS: No acute fracture or dislocation. No suspicious bone lesion. Joint spaces are maintained with no erosions or significant osteophytes. SOFT TISSUES: Unremarkable. OTHER: No other significant finding. THIS IS AN ELECTRONICALLY VERIFIED FINAL REPORT 01/20/2022 5:09 PM - Electronically signed by Tommy Malik M.D. RW: NAZARIO Report ID: [id number] Reading Location: [id number] IMPRESSION: Negative exam. us Bessy Alcaraz INTEGRITY SPECIALIST, PROFESSOR OF GRAPHIC DESIGN IMG DIAGNOSTIC ORDER TIA Final Result * XR LUMBAR SPINE MINIMUM 4 VIEWS (01/20/2022 8:45 AM CDT) Anatomical Region Laterality Modality Spine, L-spine N/A Digital Radiogra phy 01/20/2022 12:3 7 PM CDT Impressions 01/20/2022 12:40 PM CDT IMPRESSION: ?? 1. ?? Unremarkable radiographic evaluation of the lumbar spine. 2. ?? If clinically warranted, MRI lumbar spine without contrast can be performed for further evaluation. Narrative 01/20/2022 12:40 PM CDT EXAM DESCRIPTION: ?? XR LUMBAR SPINE MINIMUM 4 VIEWS REASON FOR STUDY: ?? Chronic though increasing nontraumatic bilateral low back pain for 3 years. TECHNIQUE: ?? 5 ??radiographic views acquired of the lumbar spine. COMPARISON: ?? No prior imaging of the lumbar spine available at time of interpretation. FINDINGS: SEGMENTATION: ?? Normal. ??No transitional anatomy. ALIGNMENT: ?? Normal. VERTEBRAE: ?? No radiographic evidence of acute fracture. ??Vertebral body heights maintained. ?Facet joints unremarkable. DISCS: ?? Intervertebral disc heights maintained. OTHER: ?? No other significant finding. THIS IS AN ELECTRONICALLY VERIFIED FINAL REPORT 01/20/2022 12:37 PM - Electronically signed by ??Kai Villavicencio M.D. MAHNAZ: MAHNAZ D: ??01/20/2022 12:37 PM T: ??01/20/2022 12:37 PM Report ID: [id number] Reading Location: ??[id number] Procedure Note Kai Villavicencio MD - 01/20/2022 EXAM DESCRIPTION: XR LUMBAR SPINE MINIMUM 4 VIEWS REASON FOR STUDY: Chronic though increasing nontraumatic bilateral low back pain for 3 years. TECHNIQUE: 5 radiographic views acquired of the lumbar spine. COMPARISON: No prior imaging of the lumbar spine available at time of interpretation. FINDINGS: SEGMENTATION: Normal. No transitional anatomy. ALIGNMENT: Normal. VERTEBRAE: No radiographic evidence of acute fracture. Vertebral body heights maintained. Facet joints unremarkable. DISCS: Intervertebral disc heights maintained. OTHER: No other significant finding. THIS IS AN ELECTRONICALLY VERIFIED FINAL REPORT 01/20/2022 12:37 PM - Electronically signed by Kai Villavicencio M.D. MAHNAZ: MAHNAZ Report ID: [id number] Reading Location: [id number] IMPRESSION: 1. Unremarkable radiographic evaluation of the lumbar spine. 2. If clinically warranted, MRI lumbar spine without contrast can be performed for further evaluation. Bessy Alcaraz APRN, CNP IM DIAGNOSTIC ORDER TIA Final Result documented in this encounter Visit Diagnoses Diagnosis Fabian's disease- Primary Chronic lymphocytic thyroiditis Chronic bilateral low back pain without sciatica Chronic bilateral low back pain without sciatica documented in this encounter Additional Health Concerns Assessment Noted Time PHQ-9 Depression Total Score: 11 10/26/ 022 4:00 PM CDT documented as of this encounter Care Teams Director [employer] Relationship Specialty Start Date End Date Bessy Alcaraz APRN, CNP #[address] [address] PCP - General Advanced Practice Nurse 10/30/20 Bessy Alcaraz APRN, CNP #[address] [phone] Nurse Practitioner Advanced Practice Nurse 10/28/20 documented as of this encounter
--- OUTSIDE RECORDS SUMMARY | 2024-07-28 05:11 | XMS_ITS | Encounter Summary ---
Author Organization [facility] [employer] Care Team Providers Care Order To Delivery Supervisor Name Role Phone Bessy Alcaraz APRN, CNP Unavailable [phone] Bessy Alcaraz APRN, CNP Primary Care Provid er Encounter Details Date Type Department Care Team (Latest Contact Info) Description 01/18/2021 Travel Social History Tobacco Use Types Packs/Day Years Used Date Smoking Tobacco: Never Smokeless Tobacco: Never Alcohol Use Standard Drinks/Week Comments Yes 0 (1 standard drink = 0.6 oz pur e alcohol) Rarely PHQ-2 Answer Date Recorded Total Score - Questions 1-9 12 /03/2021 Education Answer Date Recorded What is the [...] have Coronavirus / COVID-19? 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 Office Visit [facility] [address] [place] [address] Bessy Alcaraz APRN, ARAM [address] [address] documented as of this encounter Visit Diagnoses Not on filedocumented in this encounter Additional Health Concerns Assessment Noted Time PHQ-9 Depression Total Score: 12 021 3:00 PM CDT documented as of this encounter Care Teams Order To Delivery Supervisor Relationship Specialty Start Date End Date Bessy Alcaraz APRN, ARAM #[address] [address] PCP - General Advanced Practice Nurse 10/30/20 Bessy Alcaraz APRN, ARAM #[address] [address] Nurse Practitioner Advanced Practice Nurse 10/28/20 documented as of this encounter
--- OUTSIDE RECORDS SUMMARY | 2024-07-28 05:11 | XMS_ITS | Encounter Summary ---
Author Organization [facility] Address [address] [place] [address] Phone Care Team Providers Care Human Factors Scientist Name Role Phone Bessy Alcaraz APRN, CNP Unavailable + [phone] Bessy Alcaraz APRN, CNP Primary Care Provid er Reason for Visit * Reason Comments Ear Pain Encounter Details Date Type Department Care Team (Late st Contact Info) Description 10/26/2021 4:15 PM CDT [facility] Visit [facility] [address] [place] [address] Bessy Alcaraz APRN, CNP [address] [address] Perforated ear drum, left (Primary Dx); Non-recurrent acute suppurative otitis media of right ear without spontaneous rupture of tympanic membrane Discharge Disposition: Discharged to home or Selfcare [...] suspected to have Coronavirus/COVID-19? No / Unsure 10/26/2021 4:14 PM CDT documented as of this encounter Last Filed Vital Signs Vital Sign Reading Time Taken Comments Blood Pressure 114/76 10/26/2021 4:23 PM CDT Pulse 66 10/26/2021 4:23 PM CDT Temperature 36.5 ??C (97.7 ??F) 10/26/2021 4:23 PM CD T Respiratory Rate 20 10/26/2021 4:23 PM CDT Oxygen Saturation 98% 10/26/2021 4:23 PM CDT Inhaled Oxygen Concentration - - Weight 85 kg (187 lb 6.4 oz) 10/26/2021 4:23 PM CDT Height 152.4 cm (5') 10/26/2021 4:23 PM CDT Body Mass Index 36.6 10/26/2021 4:23 PM CDT documented in this encounter Patient Instructions * Patient Instructions* Bessy Alcaraz APRN, PERSONNEL SUPERVISOR - 10/26/2021 4:15 PM CDT Images from the original note were not included. Eardrum Rupture, Adult An eardrum rupture is a hole (perforation) in the eardrum. The eardrum is a thin, round tissue inside of the ear that separates the ear canal from the middle ear. The eardrum is also called the tympanic membrane. It transfers sound vibrations through small bones in the middle ear to the hearing nerve in the inner ear. It also protects the middle ear from germs. An eardrum rupture can cause pain and hearing loss. What are the causes? This condition may be caused by: ?? An infection. ?? A sudden injury, such as from: ? Inserting a thin, sharp object into the ear. ? A hit to the side of the head, especially by an open hand. ? Falling onto water or a flat surface. ? A rapid change in pressure, such as from flying or scuba diving. ? A sudden increase in pressure against the eardrum, such as from an explosion or a very loud noise. ?? Inserting a cotton-tipped swab in the ear. ?? A long-term eustachian tube disorder. Eustachian tubes are parts of the body that connect each middle ear space to the back of the nose. ?? A medical procedure or surgery, such as a procedure to remove wax from the ear canal. ?? Removing a pressure equalization tube(PE tube) that was surgically placed through the eardrum. ?? Having a PE tube fall out. What increases the risk? You are more likely to develop this condition if: ?? You have had PE tubes inserted in your ears. ?? You have an ear infection. ?? You play sports that: ? Involve balls or contact with other players. ? Take place in water, such as diving, scuba diving, or waterskiing. What are the signs or symptoms? Symptoms of this condition include: ?? Sudden pain at the time of the injury. ?? Ear pain that suddenly improves. ?? Ringing in the ear after the injury. ?? Drainage from the ear. The drainage may be clear, cloudy or pus-like, or bloody. ?? Hearing loss. ?? Dizziness. How is this diagnosed? This condition is diagnosed based on your symptoms and medical history as well as a physical exam. Your health care provider can usually see a perforation using an ear scope (otoscope). You may have tests, such as: ?? A hearing test (audiogram) to check for hearing loss. ?? A test in which a sample of ear drainage is tested for infection (culture). How is this treated? An eardrum typically heals on its own within a few weeks. If your eardrum does not heal, your health care provider may recommend a procedure to place a patch over your eardrum or surgery to repair your eardrum. Your health care provider may also prescribe antibiotic medicines to help prevent infection. If the ear heals completely, any hearing loss should be temporary. Follow these instructions at home: Medicines ?? Take [id number] and prescription medicines only as told by your health care provider. ?? If you were prescribed an antibiotic medicine, use it as told by your health care provider. Do not stop using the antibiotic even if you start to feel better. Ear care ?? Keep your ear dry. This is very important. Follow instructions from your health care provider about how to keep your ear dry. You may need to wear waterproof earplugs when bathing and swimming. ?? If directed, apply heat to your affected ear as often as told by your health care provider. Use the heat source that your health care provider recommends, such as a moist heat pack or a heating pad. This will help to relieve pain. ? Place a towel between your skin and the heat source. ? Leave the heat on for 20-30 minutes. ? Remove the heat if your skin turns bright red. This is especially important if you are unable to feel pain, heat, or cold. You have a greater risk of getting burned. General instructions ?? Return to sports and activities as told by your health care provider. Ask your health care provider what activities are safe for you. ?? Wear headgear with ear protection when you play sports in which ear injuries are common. ?? Talk to your health care provider before traveling by plane. ?? Keep all follow-up visits. This is important. Contact a health care provider if: ?? You have a fever. ?? You have ear pain. ?? You have mucus or blood draining from your ear. ?? You have hearing loss, dizziness, or ringing in your ear. Get help right away if: ?? You have sudden hearing loss. ?? You are very dizzy. ?? You have severe ear pain. ?? Your face feels weak or becomes limp (paralyzed). These symptoms may represent a serious problem that is an emergency. Do not wait to see if the symptoms will go away. Get medical help right away. Call your local emergency services (911 in the [place] Do not drive yourself to the hospital. Summary ?? An eardrum rupture is a hole (perforation) in the eardrum that can cause pain and hearing loss. It is usually caused by a sudden injury to the ear. ?? The eardrum will likely heal on its own within a few weeks. In some cases, surgery may be necessary. ?? Follow instructions from your health care provider about how to keep your ear dry as it heals. This information is not intended to replace advice given to you by your health care provider. Make sure you discuss any questions you have with your health care provider. Document Revised: 05/31/2021 Document Reviewed: 05/31/2021 [employer] Patient Education ?? 2021 [employer] documented in this encounter Progress Notes * Cynthia Chun, DELANEYA - 10/26/2021 4:15 PM CDT Cee Aldridge, 25 y.o., female is here for Ear Pain Medication Refills: Patient reports/denies need for medication refills. Orders Pended: no Requested Prescriptions No prescriptions requested or ordered in this encounter Home Medications Medication Sig Start Date End Date Taking? Authorizing Provider acetaminophen (TYLENOL) 325 MG Tablet Take 325 mg by mouth every 4 hours as needed. Patient not taking: No sig reported Raymundo Luong MD dexamethasone (DECADRON) 1 MG Tablet Take dexamethasone 1 mg at 11:00 pm and check morning cortisol Patient not taking: No sig reported 03/15/21 Gilbert Herr MD ibuprofen (MOTRIN) 200 MG Tablet Take 200 mg by mouth every 8 hours as needed. Patient not taking: No sig reported Raymundo Luong MD levonorgestrel (Kyleena) 19.5 MG IUD intrauterine device (IUD) 09/21/17 Yes Raymundo Luong MD linaCLOtide (Linzess) 72 MCG Capsule Take 1 Cap by mouth every morning (before breakfast). Patient not taking: Reported on 10/26/2021 04/13/20 Erinn Montelongo PAC liraglutide (Victoza) 18 MG/3ML Solution Pen-injector 0.6 mg SC daily for 2 weeks, 1.2 mg SC for 1 weeks, and increase it 1.8 mg SC daily Patient not taking: No sig reported 03/15/21 Gilbert Herr MD ondansetron (ZOFRAN-ODT) 4 MG TABLET DISPERSIBLE 12/17/20 Raymundo Luong MD Phentermine HCl 37.5 MG Tablet Take 1 Tablet by mouth every morning (before breakfast). Patient not taking: No sig reported 01/29/21 Nisha Mercer PAC There are no discontinued [...] been addressed with the patient today: Depression * Bessy Alcaraz APRN, CNP - 10/26/2021 4:15 PM CDT [facility] [address] [facility] [address] Dept: [phone] Dept Loc: [phone] Loc Patient: Cee Aldridge : 1995 Sex: female Subjective Subjective: HPI: Cee Aldridge presents for Ear Pain . Patient presents today for ear pain since Monday evening. Patient reports that she was in [place] for her honeymoon. She reports that she was clips jumping when she hit the water she developed severebilateral ear pain. She states that she was having intermittent muffled hearing since she had been on the plane but just thought it was changed at altitude. She was seen by medical while she is there and was diagnosed with a left perforated eardrum. She was prescribed prednisone and triben plus ear drug combination of Clotrimazole, Ofloxacin, beclomethasone dipropionate and lidocaine for her right ear. She started on Monday evening. Her symptoms are no better. She reports bilateral ear pain, right ear drainage, muffling which goes back and forth. Shehas been exercising caution due to the perforated eardrum. Past Medical History Positives Diagnosis Date ??? Abdominal pain ??? Anemia ??? Anxiety and depression ??? Gastritis ??? GERD (gastroesophageal reflux disease) ??? Heart murmur 2019 just found, goes to doctor for this 01/08/19 ??? IBS (irritable bowel syndrome) ??? TMJ (temporomandibular joint syndrome) Current Outpatient Medications on File Prior to Visit Medication Sig Dispense Refill ??? levonorgestrel (Kyleena) 19.5 MG IUD intrauterine device (IUD) No current facility-administered medications on file prior to visit. No Known Allergies Review of Systems Constitutional: Negative for activity change, chills, diaphoresis, fatigue and fever. HENT: Positive for ear discharge and ear pain. Negative for congestion, dental problem, drooling, facial swelling, hearing loss, mouth sores, nosebleeds, postnasal drip, rhinorrhea, sinus pressure, sinus pain, sneezing, sore throat, tinnitus, trouble swallowing and voice change. Eyes: Negative for pain and redness. Respiratory: Negative for cough, choking, chest tightness, shortness of breath and wheezing. Cardiovascular: Negative for chest pain and palpitations. Gastrointestinal: Negative for constipation, diarrhea, nausea and vomiting. Musculoskeletal: Negative for myalgias. Neurological: Negative for dizziness, light-headedness and headaches. Objective Objective: BP 114/76 Pulse 66 Temp 97.7 ??F (36.5 ??C) (Temporal) Resp 20 Ht 5' (1.524 m) Wt 187 lb 6.4 oz (85 kg) LMP 03/18/2020 (LMP Unknown) SpO2 98% BMI 36.60 kg/m?? Physical Exam Vitals and nursing note reviewed. Constitutional: General: She is not in acute distress. Appearance: Normal appearance. She is well-developed. She is not diaphoretic. HENT: Head: Normocephalic and atraumatic. Right Ear: Ear canal and external ear normal. Tympanic membrane is injected, scarred, erythematous and retracted. Tympanic membrane is not bulging. Left Ear: External ear normal. Tympanic membrane is perforated. Nose: Nose normal. Mouth/Throat: Mouth: Mucous membranes are moist. Pharynx: Oropharynx is clear. Eyes: Conjunctiva/sclera: Conjunctivae normal. Pupils: Pupils are [...] Diagnoses and all orders for this visit: Perforated ear drum, left - Discontinue: amoxicillin-clavulanate (AUGMENTIN) 875-125 MG Tablet; Take 1 Tablet by mouth 2 times daily for 10 days. - amoxicillin-clavulanate (AUGMENTIN) 875-125 MG Tablet; Take 1 Tablet by mouth 2 times daily for 10 days. Non-recurrent acute suppurative otitis media of right ear without spontaneous rupture of tympanic membrane - Discontinue: amoxicillin-clavulanate (AUGMENTIN) 875-125 MG Tablet; Take 1 Tablet by mouth 2 times daily for 10 days. - amoxicillin-clavulanate (AUGMENTIN) 875-125 MG Tablet; Take 1 Tablet by mouth 2 times daily for 10 days. Will go ahead and treat the patient for otitis media due to concern as she [place] her symptoms are no better. Discussed management and caution and to avoid submerging her head due to her perforated left eardrum. Verbalized understanding She will return if symptoms fail to improve. documented in this encounter Plan of Treatment Upcoming Encounters Date Type Department Care Team (Late st Contact Info) Description 08/19/2024 8:45 AM AUTOMATIC LATHE OPERATOR Office Visit [facility] - Family Medicine [facility] [address] [place] [address] Bessy Alcaraz APRN, ARAM [address] [address] documented as of this encounter Visit Diagnoses Diagnosis Perforated ear drum, left- Primary Non-recurrent acute suppurative otitis media of right ear without spontaneous rupture of tympanic membrane documented in this encounter Additional Health Concerns Assessment Noted Time PHQ-9 Depression Total Score: 11 022 4:00 PM CDT documented as of this encounter Care Teams Human Factors Scientist Relationship Specialty Start Date End Date Bessy Alcaraz APRN, ARAM [address] [address] PCP - General Advanced Practice Nurse 10/30/20 Bessy Alcaraz APRN, ARAM #[address] [address] Nurse Practitioner Advanced Practice Nurse 10/28/20 documented as of this encounter
--- OUTSIDE RECORDS SUMMARY | 2024-07-28 05:11 | XMS_ITS | Encounter Summary ---
Author Organization [facility] Address [address] [place] [address] Phone Care Team Providers Care Business Developer Name Role Phone Bessy Alcaraz APRN, CNP Unavailable + [phone] Bessy Alcaraz APRN, CNP Primary Care Provid er Encounter Details Date Type Department Care Team (Late st Contact Info) Description 04/19/2022 10:00 AM CDT Physical Therapy [facility] [address] [facility], [facility] [address] [place] [address] Bessy Alcaraz APRN, CNP [address] [facility] [address] [place] [address] Annmarie Alves, POULTRY HATCHERY MAN [employer] Discharge Disposition: Discharged to home or Selfcare [...] suspected to have Coronavirus/COVID-19? No / Unsure 04/19/2022 9:46 AM CDT documented as of this encounter Miscellaneous Notes * Plan of Care - Annmarie Alves, TEMO - 04/19/2022 10:00 AM CDT Treatment Note - Electronically signed by: ANNMARIE ALVES PTA April 19, 2022 SUBJECTIVE: Pt report she does not have pain today. Pt reports she has not pain since last week when she did a lot of walking. Pt states she is off work this month as she studies for her board. Pt states she walks for exercises. Pt reports swhen she has pain, nothing seems to make it better. Pt reports if she lifts something heavy, her pain comes on pretty. Objective TREATMENT: Refer to PT OP Rehab Therapy Treatment flowsheet for details/minutes. Home Exercises distributed via handout and text. [employer] information: Access Code: [email or web address] URL: [email or web address] Date: 04/19/2022 Prepared by: Annmarie Alves Exercises [...] weekly - 2 sets - 15 reps Patient response to new home exercises provided today: no increase in pain Interventions provided this session: therex Therapist provided Education and Skilled therapy by instructed pt in exercises and corrected form when needed.. ASSESSMENT: Other Details: Patient demonstrates limited progress as evidenced by first session of therapy. Pt needed verbal and tactile cues to perform exercises with proper form. Pt had no reproduction of pain with exercises this date. Patient would benefit from continued skilled interventions, [...] relief, soft tissue extensibility and joint mobility (76544) - Therapeutic exercise program for: motion/mobility, strengthening, flexibility, and functional limitations (45591) - Therapeutic activities for functional activity education/training, and in home safety recommendations as appropriate (39564) - Neuro Muscular Re-education for body mechanics education and postural re- education as appropriate(91684) - Patient education regarding posture, ergonomics, body mechanics, HEP progression and exercise performance - Individualized home exercise program - Modalities as needed for pain relief, anti-inflammatory effect and soft tissue extensibility - Mechanical traction (36858) - Trigger point dry needling for pain relief and reducing tension in associated musculature (17758 or 96459) Precautions: No specific precautions Treatment may be altered based on patient progression and symptoms. The plan of care, as well as the benefits and risks of therapy were reviewed with the patient and the patient consented to treatment.. documented in this encounter Plan of Treatment Upcoming Encounters Date Type Department Care Team (Late st Contact Info) Description 08/19/2024 8:45 AM ROUTE SALESMAN AND DRIVER Office Visit [facility] - [facility] - [place] [address] [place] [address] Bessy Alcaraz APRN, ARAM [address] [address] documented as of this encounter Visit Diagnoses Not on filedocumented in this encounter Additional Health Concerns Assessment Noted Time PHQ-9 Depression Total Score: 11 022 4:00 PM CDT documented as of this encounter Care Teams Business Developer Relationship Specialty Start Date End Date Bessy Alcaraz APRN, CNP #[address] [address] PCP - General Advanced Practice Nurse 10/30/20 Bessy Alcaraz APRN, CNP #[address] [address] Nurse Practitioner Advanced Practice Nurse 10/28/20 documented as of this encounter
--- OUTSIDE RECORDS SUMMARY | 2024-07-28 05:11 | XMS_ITS | Encounter Summary ---
Author Organization [employer] Care Team Providers Care Fire Management Officer Name Role Phone Bessy Alcaraz APRN, CNP Unavailable [phone]- [phone] Bessy Alcaraz APRN, CNP Primary Care Provid er Encounter Details Date Type Department Care Team (Latest Contact Info) Description 02/23/2022 Travel Social History Tobacco Use Types Packs/Day [...] suspected to have Coronavirus/COVID-19? No / Unsure 02/23/2022 1:19 PM CDT documented as of this encounter Functional Status * Over the past 2 weeks, how often have you been bothered by any of the following problems? Question Answer Date of Assessment Author Patient Health Questionnaire -2 Score 2 02/23/2022 1:00 PM CDT Meagan Luke, CECILY SW * Question Answer Date of Assessment Author Patient Health Questionnaire -9 Score 13 02/23/2022 1:00 PM CDT Luke, Meagan M, LC SW * During the last 4 weeks, how much have you been bothered by any of the following problems? Question Answer Date of Assessment Author Stomach pain Bothered a lot 02/23/2022 1:00 PM CDT Kno x, Meagan M, [employer] Back pain Bothered a lot 02/23/2022 1:00 PM CDT Kno x, Meagan M, [employer] [facility] Pain in your arms, legs, or joints (knees, hips, etc.) Bothered a little 02/23/2022 1:00 PM CDT Luke, Meagan M, LC SW Menstrual cramps or other problems with your periods Bothered a lot 02/23/2022 1:00 PM CDT Luke, Meagan M, LC SW Pain or problems during sexual intercourse Bothered a little 02/23/2022 1:00 PM CDT Luke, Meagan M, LC SW Headaches Bothered a little 02/23/2022 1:00 PM CDT Luke, Meagan M, [employer] [facility] Chest pain Not bothered 02/23/2022 1:00 PM CDT Luke, Meagan M, [employer] [facility] Dizziness Bothered a lot 02/23/2022 1:00 PM CDT Kno x, Meagan M, [employer] [facility] Fainting spells Not bothered 02/23/2022 1:00 PM CDT Kn ox, Meagan M, [employer] [facility] Feeling your heart pound or race Bothered a lot 02/23/2022 1:00 PM CDT Luke, Meagan M, LC SW Shortness of breath Bothered a lot 02/23/2022 1:00 PM CDT Luke, Meagan M, [employer] [facility] Constipation, loose bowels, or diarrhea Bothered a lot 02/23/2022 1:00 PM CDT Luke, Meagan M, LC SW Nausea, gas, or indigestion Bothered a lot 02/23/2022 1:00 PM CDT Luke, Meagan M, LC SW * Over the last 2 weeks, how often have you been bothered by any of the following problems? Question Answer Date of Assessment Author Little interest or pleasure in doing things Several days 02/23/2022 1:00 PM CDT Luke, Meagan M, [employer] [facility] Feeling down, depressed, or hopeless Several days 02/23/2022 1:00 PM CDT Ti Meagan M, [employer] [facility] Trouble falling or staying asleep, or sleeping too much More than half the days 02/23/2022 1:00 PM CDT Ti Meagan Igor, [employer] [facility] Feeling tired or having little energy Nearly every day 02/23/2022 1:00 PM CDT Luke Meagan Igor, [employer] [facility] Poor appetite or overeating Nearly every day 02/23/2022 1:00 PM CDT Ti Meagan M, [employer] [facility] Feeling bad about yourself - or that you are a failure or have let yourself or your family down Not at all 02/23/2022 1:00 PM CDT Ti Meagan M, [employer] Trouble concentrating on things, such as reading the newspaper or watching television Nearly every day 02/23/2022 1:00 PM CDT Ti Meagan M, [employer] [facility] Moving or speaking so slowly that other people could have noticed? Or the opposite - being so fidgety or restless that you have been moving around a lot more than usual. Not at all 02/23/2022 1:00 PM CDT Meagan Luke, [employer] [facility] Thoughts that you would be better off or hurting yourself in some way Not at all 02/23/2022 1:00 PM CDT Ti Meagan M, [employer] [facility] * Questions about Anxiety Question Answer Date of Assessment Author In the last 4 weeks, have yo u had an anxiety attack - suddenly feeling fear or panic? Yes 02/23/2022 1:00 PM CDT Ti Meagan M, [employer] [facility] Has this ever happened before? Yes 02/23/2022 1:00 PM CDT Ti Meagan M, [employer] [facility] Do some of these attacks com e suddenly out of the blue - that is, in situations where you don't expect to be nervous or uncomfortable? Yes 02/23/2022 1:00 PM CDT Meagan Luke, LC SW Do these attacks bother you a lot or are you worried about having another attack? No 02/23/2022 1:00 PM CDT Luke, Meagan M, LC SW * Think about your last bad anxiety attack. Question Answer Date of Assessment Author Were you short of breath? No 02/23/2022 1:00 PM CDT Luke, Meagan M, [employer] [facility] Did your heart race, pound, or skip? Yes 02/23/2022 1:00 PM CDT Luke, Meagan M, LC SW Did you have chest pain or pressure? No 02/23/2022 1:00 PM CDT Luke, Meagan M, LC SW Did you sweat? Yes 02/23/2022 1:00 PM CDT Kno x, Meagan M, [employer] [facility] Did you feel as if you were choking? Yes 02/23/2022 1:00 PM CDT Luke, Meagan M, LC SW Did you have hot flashes or chills? Yes 02/23 1:00 PM CDT Luke, Meagan M, [employer] [facility] Did you have nausea or an up set stomach, or the feeling that you were going to have diarrhea? Yes 02/23/2022 1:00 PM CDT Luke, [facility] M, [facility] [facility] Did you feel dizzy, unsteady , or faint? Yes 02/23/2022 1:00 PM CDT Luke, Meagan M, LC SW Did you have tingling or num bness in parts of your body? No 02/23/2022 1:00 PM CDT Luke, Meagan M, [employer] [facility] Did you tremble or shake? No 02/23/2022 1:00 PM CDT Luke, Meagan M, [facility] [facility] Were you afraid you were dying? No 1:00 PM CDT Luke, Meagan M, [facility] * Over the last 4 weeks, how often have you been bothered by any of the following problems? Question Answer Date of Assessment Author Feeling nervous, anxious, on edge, or worrying a lot about different things More than half the days 02/23/2022 1:00 PM CDT Luke, Meagan M, [employer] Feeling restless so that it is hard to sit still Not at all 02/23/2022 1:00 PM CDT Luke, Meagan M , [employer] [facility] Getting tired very easily More than half the days 02/23/2022 1:00 PM CDT Luke, Meagan M, [employer] [facility] Muscle tension, aches, or soreness Several days 02/23/2022 1:00 PM CDT Luke, Meagan M, [employer] [facility] Trouble falling asleep or staying asleep More than half the days 02/23/2022 1:00 PM CDT Luke, Meagan M, [employer] [facility] Trouble concentrating on things, such as reading a book or watching TV More than half the days 02/23/2022 1:00 PM CDT Luke, Meagan M, [employer] [facility] Becoming easily annoyed or irritable More than half the days 02/23/2022 1:00 PM CDT Luke, Meagan M, [employer] [facility] * Questions About Eating Question Answer Date of Assessment Author Do you often feel that you c an't control what or how much you eat? Yes 02/23/2022 1:00 PM CDT Kno x, Meagan M, [employer] Do you often eat, within any 2-hour period, what most people would regard as an unusually large amount of food? Yes 02/23/2022 1:00 PM CDT Luke, Meagan M, LC SW Has this been as often, on a verage, as twice a week for the last 3 months? Yes 02/23/2022 1:00 PM CDT Luke, Megaan M, LC SW * Have any of the following happened to you more than once in the last 6 months? Question Answer Date of Assessment Author You drank alcohol even thoug h a doctor suggested that you stop drinking because of a problem with your health. No 02/23/2022 1:00 PM CDT Luke, Meagan M, LC SW You drank alcohol, were high from alcohol, or hung over while you were working, going to school, or taking care of children or other responsibilities. No 02/23/2022 1:00 PM CDT Luke, Meagan M, LC SW You missed or were late for work, school, or other activities because you were drinking or hung over. No 02/23/2022 1:00 PM CDT Luke, Meagan M, [employer] You had a problem getting al lea with other people while you were drinking. Yes 02/23/2022 1:00 PM CDT Luke, Meagan M, LC SW You drove a car after having several drinks or after drinking too much. No 02/23/2022 1:00 PM CDT Meagan Luke LC SW * If you checked off any problems on this questionnaire, Question Answer Date of Assessment Author How difficult have these problems made it for you to do your work, take care of things at home, or get along with other people? Not difficult at all 02/23/2022 1:00 PM CDT Meagan Luke L DIRECTOR OF CURRICULUM AND INSTRUCTION * Questions about Alcohol Question Answer Date of Assessment Author Do you ever drink alcohol (including beer or wine)? Yes 02/23/2022 1:00 PM CDT Meagan Luke LCSW documented as of this encounter Plan of Treatment Upcoming Encounters Date Type Department Care Team (Late st Contact Info) Description 08/19/2024 8:45 AM LIEN SEARCHER Office Visit [facility] - [facility] [address] [place] [address] Bessy Alcaraz APRN, ARAM [address] [id number] documented as of this encounter Visit Diagnoses Not on filedocumented in this encounter Additional Health Concerns Assessment Noted Time PHQ-9 Depression Total Score: 11 022 4:00 PM CDT documented as of this encounter Care Teams Fire Management Officer Relationship Specialty Start Date End Date Bessy Alcaraz APRN, CNP [address] [id number] PCP - General Advanced Practice Nurse 10/30/20 Bessy Alcaraz APRN, CNP [address] [address] Nurse Practitioner Advanced Practice Nurse 10/28/20 documented as of this encounter
--- OUTSIDE RECORDS SUMMARY | 2024-07-28 05:11 | XMS_ITS | Encounter Summary ---
Author Organization [facility] Address [address] [place] [address] Phone Care Team Providers Care Art Teacher Name Role Phone Bessy Alcaraz APRN, CNP Unavailable +- [phone] Bessy Alcaraz APRN, CNP Primary Care Provid er Reason for Visit * Auth/Cert Specialty Diagnoses / Procedures Referred By Edmund abrams Referred To Contact Referral ID Status Reason Start Date Expiration Date Visits Re quested Visits Authorized [id number] 1 1 Encounter Details Date Type Department Care Team (Latest Contact Info) Description 02/23/2022 1:30 PM CDT Outpatient Clinic Visit [facility] [address] [place] [address] Wilmar Echavarria, FEDERAL APPELLATE CLERK #1 [place] [address] Discharge Disposition: Discharged to home or Selfcare [...] -2 Score 2 02/23/2022 1:00 PM CDT Echavarria, Wilmar M, LC SW * Question Answer Date of Assessment Author Patient Health Questionnaire -9 Score 13 02/23/2022 1:00 PM CDT Echavarria, Wilmar M, LC SW * During the last 4 weeks, how much have you been bothered by any of the following problems? Question Answer Date of Assessment Author Stomach pain Bothered a lot 02/23/2022 1:00 PM CDT Kno x, Wilmar M, FEDERAL APPELLATE CLERK Back pain Bothered a lot 02/23/2022 1:00 PM CDT Kno x, Wilmar M, FEDERAL APPELLATE CLERK Pain in your arms, legs, or joints (knees, hips, etc.) Bothered a little 02/23/2022 1:00 PM CDT Ehcavarria, Wilmar M, LC SW Menstrual cramps or other problems with your periods Bothered a lot 02/23/2022 1:00 PM CDT Echavarria, Wilmar M, LC SW Pain or problems during sexual intercourse Bothered a little 02/23/2022 1:00 PM CDT Echavarria, Wilmar M, LC SW Headaches Bothered a little 02/23/2022 1:00 PM CDT Echavarria, Wilmar M, FEDERAL APPELLATE CLERK Chest pain Not bothered 02/23/2022 1:00 PM CDT Echavarria, Wilmar M, FEDERAL APPELLATE CLERK Dizziness Bothered a lot 02/23/2022 1:00 PM CDT Kno x, Wilmar M, FEDERAL APPELLATE CLERK Fainting spells Not bothered 02/23/2022 1:00 PM CDT Kn ox, Wilmar M, FEDERAL APPELLATE CLERK Feeling your heart pound or race Bothered a lot 02/23/2022 1:00 PM CDT Echavarria, Wilmar M, LC SW Shortness of breath Bothered a lot 02/23/2022 1:00 PM CDT Echavarria, Wilmar M, FEDERAL APPELLATE CLERK Constipation, loose bowels, or diarrhea Bothered a lot 02/23/2022 1:00 PM CDT Echavarria, Wilmar M, LC SW Nausea, gas, or indigestion Bothered a lot 02/23/2022 1:00 PM CDT Echavarria, Wilmar M, LC SW * Over the last 2 weeks, how often have you been bothered by any of the following problems? Question Answer Date of Assessment Author Little interest or pleasure in doing things Several days 02/23/2022 1:00 PM CDT Echavarria, Wilmar M, FEDERAL APPELLATE CLERK Feeling down, depressed, or hopeless Several days 02/23/2022 1:00 PM CDT Echavarria, Wilmar M, FEDERAL APPELLATE CLERK Trouble falling or staying asleep, or sleeping too much More than half the days 02/23/2022 1:00 PM CDT Echavarria, Wilmar M, FEDERAL APPELLATE CLERK Feeling tired or having little energy Nearly every day 02/23/2022 1:00 PM CDT Echavarria, Wilmar M, FEDERAL APPELLATE CLERK Poor appetite or overeating Nearly every day 02/23/2022 1:00 PM CDT Echavarria, Wilmar M, FEDERAL APPELLATE CLERK Feeling bad about yourself - or that you are a failure or have let yourself or your family down Not at all 02/23/2022 1:00 PM CDT Echavarria, Wilmar M, FEDERAL APPELLATE CLERK Trouble concentrating on things, such as reading the newspaper or watching television Nearly every day 02/23/2022 1:00 PM CDT Echavarria, Wilmar M, FEDERAL APPELLATE CLERK Moving or speaking so slowly that other people could have noticed? Or the opposite - being so fidgety or restless that you have been moving around a lot more than usual. Not at all 02/23/2022 1:00 PM CDT Echavarria, Wilmar M, FEDERAL APPELLATE CLERK Thoughts that you would be better off or hurting yourself in some way Not at all 02/23/2022 1:00 PM CDT Echavarria, Wilmar M, FEDERAL APPELLATE CLERK * Questions about Anxiety Question Answer Date of Assessment Author In the last 4 weeks, have yo u had an anxiety attack - suddenly feeling fear or panic? Yes 02/23/2022 1:00 PM CDT Echavarria, Wilmar M, FEDERAL APPELLATE CLERK Has this ever happened before? Yes 02/23/2022 1:00 PM CDT Echavarria, Wilmar M, FEDERAL APPELLATE CLERK Do some of these attacks com e suddenly out of the blue - that is, in situations where you don't expect to be nervous or uncomfortable? Yes 02/23/2022 1:00 PM CDT Echavarria, Wilmar M, LC SW Do these attacks bother you a lot or are you worried about having another attack? No 02/23/2022 1:00 PM CDT Echavarria, Wilmar M, LC SW * Think about your last bad anxiety attack. Question Answer Date of Assessment Author Were you short of breath? No 02/23/2022 1:00 PM CDT Echavarria, Wilmar M, FEDERAL APPELLATE CLERK Did your heart race, pound, or skip? Yes 02/23/2022 1:00 PM CDT Echavarria, Wilmar M, LC SW Did you have chest pain or pressure? No 02/23/2022 1:00 PM CDT Echavarria, Wilmar M, LC SW Did you sweat? Yes 02/23/2022 1:00 PM CDT Kno x, Wilmar M, FEDERAL APPELLATE CLERK Did you feel as if you were choking? Yes 02/23/2022 1:00 PM CDT Echavarria, Wilmar M, LC SW Did you have hot flashes or chills? Yes 02/23/2022 1:00 PM CDT Echavarria, Wilmar M, LC SW Did you have nausea or an up set stomach, or the feeling that you were going to have diarrhea? Yes 02/23/2022 1:00 PM CDT Echavarria, S taci M, FEDERAL APPELLATE CLERK Did you feel dizzy, unsteady , or faint? Yes 02/23/2022 1:00 PM CDT Echavarria, Wilmar M, LC SW Did you have tingling or num bness in parts of your body? No 02/23/2022 1:00 PM CDT Echavarria, Wilmar M, FEDERAL APPELLATE CLERK Did you tremble or shake? No 02/23/2022 1:00 PM CDT Echavarria, Wilmar M, FEDERAL APPELLATE CLERK Were you afraid you were dying? No 1:00 PM CDT Echavarria, Wilmar M, FEDERAL APPELLATE CLERK * Over the last 4 weeks, how often have you been bothered by any of the following problems? Question Answer Date of Assessment Author Feeling nervous, anxious, on edge, or worrying a lot about different things More than half the days 02/23/2022 1:00 PM CDT Echavarria, Wilmar M, FEDERAL APPELLATE CLERK Feeling restless so that it is hard to sit still Not at all 02/23/2022 1:00 PM CDT Echavarria, Wilmar M , FEDERAL APPELLATE CLERK Getting tired very easily More than half the days 02/23/2022 1:00 PM CDT Echavarria, Wilmar M, FEDERAL APPELLATE CLERK Muscle tension, aches, or soreness Several days 02/23/2022 1:00 PM CDT Echavarria, Wilmar M, FEDERAL APPELLATE CLERK Trouble falling asleep or staying asleep More than half the days 02/23/2022 1:00 PM CDT Echavarria, Wilmar M, FEDERAL APPELLATE CLERK Trouble concentrating on things, such as reading a book or watching TV More than half the days 02/23/2022 1:00 PM CDT Echavarria, Wilmar M, FEDERAL APPELLATE CLERK Becoming easily annoyed or irritable More than half the days 02/23/2022 1:00 PM CDT Echavarria, Wilmar M, FEDERAL APPELLATE CLERK * Questions About Eating Question Answer Date of Assessment Author Do you often feel that you c an't control what or how much you eat? Yes 02/23/2022 1:00 PM CDT Kno x, Wilmar M, FEDERAL APPELLATE CLERK Do you often eat, within any 2-hour period, what most people would regard as an unusually large amount of food? Yes 02/23/2022 1:00 PM CDT Echavarria, Wilmar M, LC SW Has this been as often, on a verage, as twice a week for the last 3 months? Yes 02/23/2022 1:00 PM CDT Echavarria, Wilmar M, LC SW * Have any of the following happened to you more than once in the last 6 months? Question Answer Date of Assessment Author You drank alcohol even thoug h a doctor suggested that you stop drinking because of a problem with your health. No 02/23/2022 1:00 PM CDT Echavarria, Wilmar M, LC SW You drank alcohol, were high from alcohol, or hung over while you were working, going to school, or taking care of children or other responsibilities. No 02/23/2022 1:00 PM CDT EchavarriaWilmar M, LC SW You missed or were late for work, school, or other activities because you were drinking or hung over. No 02/23/2022 1:00 PM CDT Wilmar Echavarria, FEDERAL APPELLATE CLERK You had a problem getting al lea with other people while you were drinking. Yes 02/23/2022 1:00 PM CDT EchavarriaWilmar M, LC SW You drove a car after having several drinks or after drinking too much. No 02/23/2022 1:00 PM CDT Wilmar Echavarria M, LC SW * If you checked off any problems on this questionnaire, Question Answer Date of Assessment Author How difficult have these problems made it for you to do your work, take care of things at home, or get along with other people? Not difficult at all 02/23/2022 1:00 PM CDT Wilmar Echavarria, L PROFILER * Questions about Alcohol Question Answer Date of Assessment Author Do you ever drink alcohol (including beer or wine)? Yes 02/23/2022 1:00 PM CDT Wilmar Echavarria FEDERAL APPELLATE CLERK documented as of this encounter Patient Instructions * Patient Instructions* Wilmar Echavarria FEDERAL APPELLATE CLERK - 02/23/2022 1:30 PM CDT Images from the original note were not included. Suicide Hotlines - Crisis Intervention 13/02 Intervention Team [facility] Crisis Intervention Team?[phone] ([facility] Crisis Intervention Team?.. [phone] ([place]) [facility] Can be used by individual, PD, Hospitals, family, friend etc. for in-home assessment of concerns for someone's mental health Local Numbers - Behavioral Health Response (BHR)?[phone] / [phone] ([place]) Life Crisis Services?.824-431- BNAV (3795) ([place]) CARES Line (Medicaid patients up to age 21)???[phone] If non-Medicaid patient, still need tocall Cares Line and if screened out [facility] for follow up Crisis Intervention Team National [facility] - National Suicide Prevention Hotline: ?.2-409-463-TALK (6376) or 988 Sexual Assault Hotline?1-821-130-BILLINGS (9305) Domestic Violence Hotline?.8-636-910-SAFE (1158) [facility] Lifeline? Trans Lifeline?3-904- 805-9719 LGBTQ Partner Abuse & Sexual Assault Line?.1-066-208-2234 Crisis Text Line?Text help to 477310 Warm Lines [place] Warmline? [facility] Warmline? 9a-9p/7 days a week Comp[facility]ionate Ear Warmline?..0-329-888-6110 MENTAL HEALTH EMERGENCY- Assessment for Crisis/or/ED's with Inpatient Units Behavioral Health Urgent Care [facility] [phone] (5yrs old to Adult) [address] [facility] [address] [place] [address] Monday - Monday 9:00am - 7:00pm *Last patient seen at 6:00pm Walk-In Crisis or Telehealth for age 18+ Crisis Walk In: Call for Help's Living Room: Monday-Monday 8:30am-5pm [address], [place] [address] Crisis Telehealth: Monday, Monday, Monday 8:30am-5:00pm and Monday, 12:00pm-8:00pm. Must have good internet connection. To access telehealth go to ???Talk to Someone Now?? or call [phone] ext. 109. No cost and no insurance necessary. Emergency Department diversion program. [facility] (Intake Adult Acute) [phone] [place] [address]. https://[facility].org/services/bajfacwajo-jmagjt-rfz-wellness [facility] [phone] (Intake Adult 18+-Used by clinician to alert that patient will be coming in through the emergency room) [address] [place] [address] [facility] (13/02 - emergency services for children age 4+, adolescent, adult) [phone] [place] [address]. Adult Inpatient Facility. http://[facility].org/ [facility] Sexual Assault Victims Care Unit. (Children, adolescent, adult) 13/02 crisis intervention: 666.914.3047 Hotline Number and Main Office. Community Stabilization (Homeless adults with Mental Illness) 467.236.4004. http://[facility].org/ [facility] 885-581-3422136.717.7806 (children, adolescent, adult) [address] [place] [address] http://[facility].com/admission-informationfaqs/ [facility] Behavioral Health [phone] Option #1 (adult) [address] [place] [address] https://www.[facility]/service/mental-health Inpatient evaluations conducted in Intake office on the ground floor 8am-4pm [facility] (children, adolescent, adult) http://www.[facility].com/behavioralhealth [facility] [phone] (Adult only) https://www.[facility]/psychiatry/eelhk-ajnwdizehr-ayegtwvp.php [facility] Behavioral Health. [phone] (children, adolescent, adult) http://www.[employer]/medical-services/behavioral-health documented in this encounter Progress Notes * Echavarria Wilmar Igor, FEDERAL APPELLATE CLERK - 02/23/2022 1:30 PM CDT [facility] BEHAVIORAL HE[facility] INITIAL EVALUATION Name: Cee March Age: 26 y.o. Date of : 1995 Date of service: 02/23/2022 Start time: 1:30pm End time: 2:00pm DIAGNOSIS: MDD, recurrent, moderate MARYAM PTSD Disordered [...] too little) Behavioral: argumentativeness attention/concentration hyperactivity impulsivity Progress Note: Patient reported no new concerns or events since last visit. Patient completed the adult CAARS-Long Version, PHQ Flowsheet in session. Clinician will provide screening results at next scheduled appointment. isolating Recent examples of current difficulty include: [...] Reported: Short term memory intact, difficulties with fpc memory Attention: Easily distracted Insight/Judgement: Impulsiveness FUNCTIONAL ASSESSMENT: Can the patient perform Activities of Daily Living (ADL'S)?: reduced showering and brushing teeth Does patient have the ability and the capacity to respond to treatment?: Yes RISK ASSESSMENT: Suicidal Ideation: There is no history of suicidal ideation.. -[place]- Suicide Severity Rating Scale: Risk Stratification: Suicide [...] months. Are there any languages other than Indonesian spoken in the home? No Are there any Rastafari or Cultural Considerations that may impact treatment in any way? No FAMILY OF ORIGIN: Parent(s)/Caregiver(s): Biological. Patient has limited contact with her mother. Daily communications with brothers. Place of /where raised. 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 COLONOSCOPY 2016 [place] ??? COLONOSCOPY Left 12/27/2018 Procedure: COLONOSCOPY-HEMORRHOIDS; Surgeon: Scooby Cuellar MD; Location: [facility] GI [facility]; Service: Gastroenterology ??? [...] st Contact Info) Description 08/19/2024 8:45 AM FORMS EXAMINER Office Visit [facility] - [facility] [address] [place] [address] Bessy Alcaraz APRN, HEALTH UNIT CLERK #[address] [address] documented as of this encounter Visit Diagnoses Not on filedocumented in this encounter Additional Health Concerns Assessment Noted Time PHQ-9 Depression Total Score: 11 022 4:00 PM CDT documented as of this encounter Care Teams Art Teacher Relationship Specialty Start Date End Date Bessy Alcaraz APRN, ARAM #[address] [address] PCP - General Advanced Practice Nurse 10/30/20 Bessy Alcaraz APRN, ARAM #[address] [address] Nurse Practitioner Advanced Practice Nurse 10/28/20 documented as of this encounter
--- OUTSIDE RECORDS SUMMARY | 2024-07-28 05:11 | XMS_ITS | Encounter Summary ---
Author Organization [facility] Address [address] [place] [address] Phone Care Team Providers Care Automobile Mechanic Name Role Phone Bessy Alcaraz APRN, CNP Unavailable +- [phone] Bessy Alcaraz APRN, CNP Primary Care Provid er Reason for Visit * Auth/Cert Specialty Diagnoses / Procedures Referred By Edmund abrams Referred To Contact Referral ID Status Reason Start Date Expiration Date Visits Re quested Visits Authorized [id number] 1 1 Encounter Details Date Type Department Care Team (Latest Contact Info) Description 03/15/2022 1:30 PM CDT [facility] 1 [place] [address] Wilmar Echavarria, PLATING FOREMAN [address] [place] [address] ADHD (attention deficit hyperactivity disorder), combined type (Primary Dx); Attention deficit hyperactivity disorder [...] suspected to have Coronavirus/COVID-19? No / Unsure 03/15/2022 1:30 PM CDT documented as of this encounter Progress Notes * Wilmar Echavarria, PLATING FOREMAN - 03/15/2022 1:30 PM CDT [facility] BE[facility]AVIORAL HE[facility] INITIAL EVALUATION Name: Cee March Age: 26 y.o. Date of : 1995 Date of service: 03/15/2022 Start time: 1:30pm End time: 2:00pm DIAGNOSIS: ADHD, combined type MDD, recurrent, moderate MARYAM PTSD Disordered Eating [...] Behavioral: argumentativeness attention/concentration hyperactivity impulsivity Progress Note: Screening tools provided and scored: (Scores 60-65 considered typical) CAARS-S:L Subscale T-Scores a. Inattention memory problems 80 Marked atypical Difficulties may include trouble concentrating, Difficulty planning or completing tasks, forgetfulness, Absent-mindness, being disorganized. b. Hyperactivity/restlessness 64 Typical Difficulties may include problems with working at the Same task for long periods of time, feeling more restless Than others seem to be, fidgeting. c. Impulsivity/emotional lability 81 Marked atypical Difficulties may include engaging in more impulsive Acts than others do, low frustration tolerance, quick And frequent mood changes, feeling easily angered and Irritated by people. d. Problems with self-concept 61 Typical Difficulties may include poor social relationships, low self-esteem and self-confidence. e. DSM-IV inattentive symptoms 89 Marked atypical Behave in a manner consistent with the Inattentive Subtype of ADHD described in the DSM-IV. f. DSM-IV hyperactive-impulsive symptoms 88 Marked atypical Behave in a manner consistent with the Hyperactive-Impulsive subtype of ADHD described in the DSM-IV. g. DSM-IV ADHD symptoms total 90 Marked atypical Behave in a manner consistent with the Combined Type of ADHD described in the DSM-IV. h. ADHD index 75 Marked atypical Identifies individuals ???at risk?? for ADHD Patients answers were consistent. Intervention / Psychotherapy: Therapeutic Interventions included: Clinician utilized person centered approach (active/reflective listening, summarization, and open ended questions, unconditional positive regard) to encourage patient???s expression of thoughts and feelings for insight building, to gain relief from distressing thoughts and feelings and to strengthen therapeutic rapport. Clinician also further assessed symptoms with patient and provided screening tools to patient to complete. Plan: Will discuss with her PCP at next scheduled visit. isolating Recent examples of current difficulty include: [...] Reported: Short term memory intact, difficulties with retirement memory Attention: Easily distracted Insight/Judgement: Impulsiveness FUNCTIONAL ASSESSMENT: Can the patient perform Activities of Daily Living (ADL'S)?: reduced showering and brushing teeth Does patient have the ability and the capacity to respond to treatment?: Yes RISK ASSESSMENT: Suicidal Ideation: There is no history of suicidal ideation.. -[place]- Suicide Severity Rating Scale: Risk Stratification: Suicide [...] months. Are there any languages other than Nepali spoken in the home? No Are there any Scientologist or Cultural Considerations that may impact treatment in any way? No FAMILY OF ORIGIN: Parent(s)/Caregiver(s): Biological. Patient has limited contact with her mother. Daily communications with brothers. Place of /where raised. 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 COLONOSCOPY 2016 [place] ??? COLONOSCOPY Left 12/27/2018 Procedure: COLONOSCOPY-HEMORRHOIDS; Surgeon: Scooby Cuellar MD; Location: [facility] GI [facility]; Service: Gastroenterology ??? ORAL [...] st Contact Info) Description 08/19/2024 8:45 AM IMAGING SPECIALIST [facility] [address] [place] [address] Bessy Alcaraz APRN, ARAM #[address] [address] documented as of this encounter Visit Diagnoses Diagnosis ADHD (attention deficit hyperactivity disorder), combined type- Primary Attention deficit disorder with hyperactivity Attention deficit hyperactivity disorder (ADHD), combined type documented in this encounter Additional Health Concerns Infection Onset Date Last Indicated Resolved Time COVID - 19 Confirmed 03/10/2022 03/10/2022 022 12:16 AM CDT Assessment Noted Time PHQ-9 Depression Total Score: 11 022 4:00 PM CDT documented as of this encounter Care Teams Automobile Mechanic Relationship Specialty Start Date End Date Bessy Alcaraz APRN, CNP #[address] [address] PCP - General Advanced Practice Nurse 10/30/20 Bessy Alcaraz APRN, CNP #[address] [address] Nurse Practitioner Advanced Practice Nurse 10/28/20 documented as of this encounter
--- OUTSIDE RECORDS SUMMARY | 2024-07-28 05:11 | XMS_ITS | Encounter Summary ---
Author Organization [facility] [employer] Care Team Providers Care Personnel Manager Name Role Phone Bessy Alcaraz APRN, CNP Unavailable +- [phone] Bessy Alcaraz APRN, CNP Primary Care Provid er Encounter Details Date Type Department Care Team (Latest Contact Info) Description 04/22/2022 Travel Social History Tobacco Use Types Packs/Day [...] suspected to have Coronavirus/COVID-19? No / Unsure 04/22/2022 10:33 AM CDT documented as of this encounter Plan of Treatment Upcoming Encounters Date Type Department Care Team (Late st Contact Info) Description 08/19/2024 8:45 AM JUNIOR ANALYST Office Visit [facility] - Family [facility] [address]2 [place] [address] Bessy Alcaraz APRN, CNP #[address] [address] documented as of this encounter Visit Diagnoses Not on filedocumented in this encounter Additional Health Concerns Assessment Noted Time PHQ-9 Depression Total Score: 11 10/26/ 022 4:00 PM CDT documented as of this encounter Care Teams Personnel Manager Relationship Specialty Start Date End Date Bessy Alcaraz APRN, ARAM #[address] [address] PCP - General Advanced Practice Nurse 10/30/20 Bessy Alcaraz APRN, ARAM #[address] [address] Nurse Practitioner Advanced Practice Nurse 10/28/20 documented as of this encounter
--- OUTSIDE RECORDS SUMMARY | 2024-07-28 05:11 | XMS_ITS | Encounter Summary ---
Author Organization [facility] Address [address] [place] [address] Phone Care Team Providers Care Supervisor Picking Crew Name Role Phone Bessy Alcaraz APRN, CNP Unavailable +[phone] Bessy Alcaraz APRN, CNP Primary Care Provid er Reason for Visit * Reason Onset Date Comments Results 03/30/2022 Encounter Details Date Type Department Care Team (Late st Contact Info) Description 03/30/2022 Telephone [facility] - [place] [address] [place] [address] Bessy Alcaraz APRN, CNP #[address] [phone] Results Social History Tobacco Use Types Packs/Day [...] Recorded In the last 10 days, have rae lr been in contact with someone who was confirmed or suspected to have Coronavirus/COVID-19? No / Unsure 03/29/2022 1:14 PM CDT documented as of this encounter Miscellaneous Notes * Telephone Encounter - Alexia Gunter RN - 03/30/2022 9:37 AM CDT Sent message to patient through my chart. * Telephone Encounter - Alexia Gunter RN - 03/30/2022 9:35 AM CDT ----- Message from Bessy Alcaraz APRN, CNP sent at 03/30/2022 9:24 AM CDT ----- Please call patient. Her labs look ok. Her HIV and Hep screens are negative as well. documented in this encounter Plan of Treatment Upcoming Encounters Date Type Department Care Team (Late st Contact Info) Description 08/19/2024 8:45 AM COMMERCIAL REAL ESTATE ASSISTANT Office Visit [facility] - Family Medicine - [place] [address] [place] [phone] Bessy Alcaraz APRN, CNP #[address] [phone] documented as of this encounter Visit Diagnoses Not on filedocumented in this encounter Additional Health Concerns Infection Onset Date Last Indicated Resolved Time COVID - 19 Confirmed 03/10/2022 03/10/2022 022 12:16 AM CDT Assessment Noted Time PHQ-9 Depression Total Score: 11 022 4:00 PM CDT documented as of this encounter Care Teams Supervisor Picking Crew Relationship Specialty Start Date End Date Bessy Alcaraz APRN, CNP #[address] [phone] PCP - General Advanced Practice Nurse 10/30/20 Bessy Alcaraz APRN, TANDEM MILL STICKER #[address] [address] Nurse Practitioner Advanced Practice Nurse 10/28/20 documented as of this encounter
--- OUTSIDE RECORDS SUMMARY | 2024-07-28 05:11 | XMS_ITS | Encounter Summary ---
Author Organization [facility] Address [address] [place] [address] Phone Care Team Providers Care Grades 1 Through 5 Teacher Name Role Phone Bessy Alcaraz APRN, CNP Unavailable +- [phone] Bessy Alcaraz APRN, CNP Primary Care Provid er Reason for Referral * Radiology Services (Routine) - Closed Specialty Diagnoses / Procedures Referred By Contac t Referred To Contact Radiology Diagnoses RUQ pain Procedures US ABDOMEN LIMITED LEVEL 3 THREE ORGAN Bessy Alcaraz APRN, CNP #[address] [address] Phone: tel: fax: Referral ID Status Reason Start Date Expiration Date Visits Re quested Visits Authorized [id number] Closed 04/01/2022 1 1 Reason for Visit * Radiology Services (Routine) - Closed Specialty Diagnoses / Procedures Referred By Contac t Referred To Contact Radiology Diagnoses RUQ pain Procedures US ABDOMEN LIMITED LEVEL 3 THREE ORGAN Bessy Alcaraz APRN, CNP #[address] [address] Phone: tel: fax: Referral ID Status Reason Start Date Expiration Date Visits Re quested Visits Authorized [id number] Closed 04/01/2022 1 1 Encounter Details Date Type Department Care Team (Latest Contact Info) Description 04/15/2022 10:22 AM CDT - 04/15/2022 11:59 PM CDT Hospital Encounter [facility] Ultrasound [address] [place] [address] Bessy Alcaraz APRN, CNP #[address] [place] [address] Discharge Disposition: Discharged to home [...] Notes * Bessy Alcaraz APRN, CNP - 04/15/2022 10:30 AM CDT Normal US. Recommended HIDA scan. MyChart message sent. documented in this encounter Plan of Treatment Upcoming Encounters Date Type Department Care Team (Late st Contact Info) Description 08/19/2024 8:45 AM STORE CASHIER Office Visit [facility] - Family Medicine - [place] [address] [place] [address] Bessy Alcaraz, DIRECTOR CLINICAL OPERATIONS, BIOMEDICAL INSTRUMENT TECHNICIAN [address] [place] [address] documented as of this encounter Procedures Procedure Name Priority Date/Time Associated Diagnosis Comments US ABDOMEN LIMITED LEVEL 3 THREE ORGAN Routine 04/15/2022 11:07 AM CDT RUQ pain documented in this encounter Results * US LIVER, PANCREAS AND GALLBLADDER (04/15/2022 11:07 AM CDT) Anatomical Region Laterality Modality Abdomen N/A Ultrasound 04/15/2022 6:26 PM CDT Impressions 04/15/2022 6:29 PM CDT IMPRESSION: Negative right upper quadrant ultrasound. ?? Narrative 04/15/2022 6:29 PM CDT EXAM DESCRIPTION: ?? US ABDOMEN LIMITED LEVEL 3 THREE ORGAN REASON FOR STUDY: Right upper quadrant pain ??for 3-4 months. TECHNIQUE: Ultrasound of the right upper quadrant of the abdomen was performed with grayscale and color Doppler. COMPARISON: None. FINDINGS: PANCREAS: ??Visualized portions of the pancreas are within normal limits. Portions of the pancreatic body and tail are obscured due to bowel gas. LIVER: The liver is normal in echogenicity. ??Liver measures ?? cm. No focal hepatic lesions are seen. Antegrade direction of flow shown in the main portal vein. GALLBLADDER: ??No echogenic gallstones, gallbladder wall thickening, or pericholecystic fluid. No positive sonographic Baugh's sign reported. BILIARY: There is no intrahepatic biliary ductal dilatation. The common bile duct measures ??0.3 ??cm in diameter. RIGHT KIDNEY: Right kidney is ??10.1 ??cm in length. There is no hydronephrosis. The echogenicity is ??normal. OTHER: ??No other significant finding. THIS IS AN ELECTRONICALLY VERIFIED FINAL REPORT 04/15/2022 6:26 PM - Electronically signed by ??Butch Albrecht M.D. CH: DARIELA D: ??04/15/2022 6:26 PM T: ??04/15/2022 6:26 PM Report ID: [id number] Reading Location: ??[id number] Procedure Note Butch Albrecht Jr., MD - 04/15/2022 EXAM DESCRIPTION: US ABDOMEN LIMITED LEVEL 3 THREE ORGAN REASON FOR STUDY: Right upper quadrant pain for 3-4 months. TECHNIQUE: Ultrasound of the right upper quadrant of the abdomen was performed with grayscale and color Doppler. COMPARISON: None. FINDINGS: PANCREAS: Visualized portions of the pancreas are within normal limits. Portions of the pancreatic body and tail are obscured due to bowel gas. LIVER: The liver is normal in echogenicity. Liver measures cm. No focal hepatic lesions are seen. Antegrade direction of flow shown in the main portal vein. GALLBLADDER: No echogenic gallstones, gallbladder wall thickening, or pericholecystic fluid. No positive sonographic Baugh's sign reported. BILIARY: There is no intrahepatic biliary ductal dilatation. The common bile duct measures 0.3 cm in diameter. RIGHT KIDNEY: Right kidney is 10.1 cm in length. There is no hydronephrosis. The echogenicity is normal. OTHER: No other significant finding. THIS IS AN ELECTRONICALLY VERIFIED FINAL REPORT 04/15/2022 6:26 PM - Electronically signed by Butch Albrecht M.D. CH: DARIELA Report ID: [id number] Reading Location: [id number] IMPRESSION: Negative right upper quadrant ultrasound. us Bessy Alcaraz APRN, CNP IMLuther US ORDERABLES Fi nal Result documented in this encounter Visit Diagnoses Diagnosis RUQ pain Abdominal pain, right upper quadrant documented in this encounter Additional Health Concerns Assessment Noted Time PHQ-9 Depression Total Score: 11 10/26/ 022 4:00 PM CDT documented as of this encounter Care Teams Grades 1 Through 5 Teacher Relationship Specialty Start Date End Date Bessy Alcaraz APRN, CNP #[address] [phone] PCP - General Advanced Practice Nurse 10/30/20 Bessy Alcaraz APRN, BIOMEDICAL INSTRUMENT TECHNICIAN #[address] [phone] Nurse Practitioner Advanced Practice Nurse 10/28/20 documented as of this encounter
--- OUTSIDE RECORDS SUMMARY | 2024-07-28 05:11 | XMS_ITS | Encounter Summary ---
Author Organization [facility] Address [address] [place] [address] Phone Care Team Providers Care Boiler House Inspector Name Role Phone Bessy Alcaraz APRN, CNP Unavailable Bessy Alcaraz APRN, CNP Primary Care Provid er Reason for Visit * Reason Onset Date Comments Appointment 03/09/2022 Encounter Details Date Type Department Care Team (Late st Contact Info) Description 03/09/2022 Telephone [facility] [address] [place] [address] Bessy Alcaraz APRN, CNP #[address] [address] Appointment Social History Tobacco Use Types Packs/Day [...] In the last 10 days, have rae u been in contact with someone who was confirmed or suspected to have Coronavirus/COVID-19? No / Unsure 02/23/2022 1:19 PM CDT documented as of this encounter Miscellaneous Notes * Telephone Encounter - Genaro Hardin, RN - 03/09/2022 10:51 AM CDT Patient is calling to see if she could get in to be seen today. Advised that there is nothing available with Bessy Alcaraz but I could check the other provider's schedules. Patient state that she would like to see Bessy and will keep appointment tomorrow. documented in this encounter Plan of Treatment Upcoming Encounters Date Type Department Care Team (Late st Contact Info) Description 08/19/2024 8:45 AM BRIDGE INSPECTOR Office Visit [facility] - Family Medicine - [place] [address] [place] [address] Bessy Alcaraz APRN, ARAM #[address] [address] documented as of this encounter Visit Diagnoses Not on filedocumented in this encounter Additional Health Concerns Assessment Noted Time PHQ-9 Depression Total Score: 11 10/26/ 022 4:00 PM CDT documented as of this encounter Care Teams Boiler House Inspector Relationship Specialty Start Date End Date Bessy Alcaraz APRN, CNP #[address] [address] PCP - General Advanced Practice Nurse 10/30/20 Bessy Alcaraz APRN, CNP #[address] [address] Nurse Practitioner Advanced Practice Nurse 10/28/20 documented as of this encounter
--- OUTSIDE RECORDS SUMMARY | 2024-07-28 05:11 | XMS_ITS | Encounter Summary ---
Author Organization [facility] Address [address] [place] [address] Phone Care Team Providers Care Employment Evaluator/Case Manager Name Role Phone Bessy Alcaraz APRN, CNP Unavailable +- [phone] Bessy Alcaraz APRN, CNP Primary Care Provid er Reason for Referral * Radiology Services (Routine) - Closed Specialty Diagnoses / Procedures Referred By Contac t Referred To Contact Radiology Diagnoses Chronic bilateral low back pain without sciatica Procedures XR LUMBAR SPINE MINIMUM 4 VIEWS Bessy Alcaraz APRN, CNP #[address] [address] Phone: tel: fax: Referral ID Status Reason Start Date Expiration Date Visits Re quested Visits Authorized [id number] Closed 01/20/2022 1 1 * Radiology Services (Routine) - Closed Specialty Diagnoses / Procedures Referred By Contac t Referred To Contact Radiology Diagnoses Chronic bilateral low back pain without sciatica Procedures XR SACROILIAC JOINTS, COMPLETE Bessy Alcaraz APRN, CNP #[address] [address] Phone: tel: fax: Referral ID Status Reason Start Date Expiration Date Visits Re quested Visits Authorized [id number] Closed 01/20/2022 1 1 Reason for Visit * Radiology Services (Routine) - Closed Specialty Diagnoses / Procedures Referred By Edmund abrams Referred To Contact Radiology Diagnoses Chronic bilateral low back pain without sciatica Procedures XR SACROILIAC JOINTS, COMPLETE Bessy Alcaraz APRN, DESIGN ENGINEER MARINE EQUIPMENT #[address] [address] Phone: tel: fax: Referral ID Status Reason Start Date Expiration Date Visits Re quested Visits Authorized [id number] Closed 01/20/2022 1 1 Encounter Details Date Type Department Care Team (Latest Contact Info) Description 01/20/2022 8:45 AM CDT - 01/20/2022 11:59 PM CDT Hospital Encounter [facility] Diagnostic Radiology [address] [place] [address] Bessy Alcaraz APRN, DESIGN ENGINEER MARINE EQUIPMENT #[address] [phone] Discharge Disposition: Discharged to home or Selfcare [...] AM CDT documented as of this encounter Progress Notes * Bessy Alcaraz APRN, CNP - 01/20/2022 8:30 AM CDT Normal lumbar and SI joint x-ray. Start PT documented in this encounter Plan of Treatment Upcoming Encounters Date Type Department Care Team (Late st Contact Info) Description 08/19/2024 8:45 AM DIRECTOR OF RESIDENCE LIFE Office [facility] [address] [place] [address] Bessy Alcaraz APRN, CNP [address] [address] documented as of this encounter Procedures Procedure Name Priority Date/Time Associated Diagnosis Comments XR SACROILIAC JOINTS, COMPLETE Routine 01/20/2022 8:45 AM CDT Chronic bilateral low back pain without sciatica XR LUMBAR SPINE MINIMUM 4 VIEWS Routine 01/20/2022 8:45 AM CDT Chronic bilateral low back pain without sciatica documented in this encounter Results * XR LUMBAR SPINE MINIMUM 4 VIEWS [...] PM T: ??01/20/2022 12:37 PM Report ID: [id number] Reading Location: ??[id number] Procedure Note Kai Villavicencio MD - 01/20/2022 [...] Kai Villavicencio M.D. MAHNAZ: MAHNAZ Report ID: [id number] Reading Location: [id number] IMPRESSION: 1. Unremarkable radiographic evaluation of the lumbar spine. 2. If clinically warranted, MRI lumbar spine without contrast can be performed for further evaluation. Bessy Alcaraz PARTS EXPEDITER, DESIGN ENGINEER MARINE EQUIPMENT IMG DIAGNOSTIC ORDER TIA Final Result * XR SACROILIAC JOINTS, COMPLETE (01/20/2022 8:45 [...] PM T: ??01/20/2022 5:09 PM Report ID: [id number] Reading Location: ??[id number] Procedure Note Tommy Malik MD - 01/20/2022 [...] Tommy Malik M.D. RW: NAZARIO Report ID: [id number] Reading Location: [id number] IMPRESSION: Negative exam. Bessy Alcaraz PARTS EXPEDITER, DESIGN ENGINEER MARINE EQUIPMENT IMG DIAGNOSTIC ORDER TIA Final Result documented in this encounter Visit Diagnoses Diagnosis Chronic bilateral low back pain without sciatica documented in this encounter Additional Health Concerns Assessment Noted Time PHQ-9 Depression Total Score: 11 04/2 022 4:00 PM CDT documented as of this encounter Care Teams Employment Evaluator/Case Manager Relationship Specialty Start Date End Date Bessy Alcaraz APRN, ARAM #2 [facility] [place] [address] PCP - General Advanced Practice Nurse 10/30/20 Bessy Alcaraz APRN, CNP [address] [phone] Nurse Practitioner Advanced Practice Nurse 10/28/20 documented as of this encounter
--- OUTSIDE RECORDS SUMMARY | 2024-07-28 05:11 | XMS_ITS | Encounter Summary ---
Author Organization [facility] Care Team Providers Care Inclusion Internship Name Role Phone Bessy Alcaraz APRN, CNP Unavailable + [phone] Bessy Alcaraz APRN, CNP Primary Care Provid er Encounter Details Date Type Department Care Team (Latest Contact Info) Description 12/14/2020 Travel Social History Tobacco Use Types Packs/Day Years Used Date Smoking Tobacco: Never Smokeless Tobacco: Never Alcohol Use Standard Drinks/Week Comments Yes 0 (1 standard drink = 0.6 oz pur e alcohol) Rarely PHQ-2 Answer Date Recorded Total Score - Questions 1-9 12 04/0 03/2021 Sexually Active Control Partners Comments Yes [...] st Contact Info) Description 08/19/2024 8:45 AM ACTIVITIES CONCIERGE Office Visit [facility] - Family Medicine [facility] [address] [place] [address] Bessy Alcaraz APRN, CNP #[address] [address] documented as of this encounter Visit Diagnoses Not on filedocumented in this encounter Additional Health Concerns Assessment Noted Time PHQ-9 Depression Total Score: 12 021 3:00 PM CDT documented as of this encounter Care Teams Inclusion Internship Relationship Specialty Start Date End Date Bessy Alcaraz APRN, ARAM #[address] [phone] PCP - General Advanced Practice Nurse 10/30/20 Bessy Alcaraz APRN, ARAM #[address] [phone] Nurse Practitioner Advanced Practice Nurse 10/28/20 documented as of this encounter
--- OUTSIDE RECORDS SUMMARY | 2024-07-28 05:11 | XMS_ITS | Encounter Summary ---
Author Organization [facility] Address [address] [place] [address] Phone Care Team Providers Care Photo Equipment Technician Name Role Phone Bessy Alcaraz APRN, CNP Unavailable +- [phone] Bessy Alcaraz APRN, CNP Primary Care Provid er Reason for Visit * PT/OT/ST (Routine) - Closed Specialty Diagnoses / Procedures Referred By Edmund abrams Referred To Contact Rehabilitation Diagnoses Chronic bilateral low back pain without sciatica Bessy Alcaraz APRN, SURVEYING CREW STAKE RUNNER [address] [address] Phone: tel: fax: [facility] [address], [place] [address] [address] Phone: tel: fax: Referral ID Status Reason Start Date Expiration Date Visits Re quested Visits Authorized [id number] Closed 03/24/2022 1 20 Encounter Details Date Type Department Care Team (Late st Contact Info) Description 04/05/2022 10:00 AM CDT Physical Therapy [facility] [address], [place] [address] [place] [address] Bessy Alcaraz APRN, ARAM #2 [facility] [address] [place] [address] Bee Rios, PT [place] Weakness (Primary Dx); Chronic bilateral low back pain without sciatica; Abnormal posture Discharge Disposition: Discharged to home or Selfcare [...] Miscellaneous Notes * Plan of Care - Bee Rios, PT - 04/05/2022 10:00 AM CDT Images from the original note were not included. Initial Evaluation - Electronically signed by: BEE RIOS, PT April 06, 2022 SUBJECTIVE: Onset Date: 2018 Primary complaint: Pain in back, bilateral buttocks. She also gets numbness in the toes randomly. Patient Narrative: Pt has had pain in her back for many years. She states she has not taken care ofherself lately because she has been taking care of her dad. 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 That really irritated her back. 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 Lifting the coils for the MRI are heavy and painful to lift. There is a little less lifting with MRI work. She is in an out patient center. It is not as extreme as a hospital. The pain is worse with lifting. She typically feels the pain later in the day after she does a lot of lifting. Walking also irritates her back and her buttocks. Her pain fluctuates from day to day ,but she feels significant pain after walking about 1/2 a mile. She wakes up every morning with back pain. She sleeps on either side with a pillow between her knees or she lies on her back with a pillow between her knees. She wakes up in the night once a week with back. Getting up from a chair sometimes causes a pinch in her buttocks. Sometimes popping her back helps. Sometimes her massages her left SI joint and that helps to. - Prior level of function: She had less pain. Walking increased her pain at work but she pushed through it. Symptom Location: Low back 1) Current pain 4/10 - Constant, described as Dull pain - Range 7/10 to 3/10 - Aggravating factors: lifting, walking, - Easing factors: Massage, sometimes massage, and sometimes popping her back Patient is Right side dominant. Pertinent Past Medical History including: ADHD, Depression, anxiety, Prior treatment attempted: Tylenol, chiropractor helped some for about a week. Massage from . Coordination of care: Patient denies prior physical therapy this year for this or any other condition. Patient is not currently seeking other concurrent treatment. Work/Hobbies/Activities: Drives 1 hour for work. Enjoys disc golf. Walks dogs. Patient's goal for Physical Therapy: Get the pain under control and figure out how to make it better. Patient learning style: - Barriers to learning: no barriers - Preferred learning style: listening - Preferred language: Persian - Exhibition Designer needed: No Written attendance policy reviewed: Yes Next appointment with referring provider: 04-07-22 Body Diagram Patient Reports: Musculoskeletal: Back: OBJECTIVE Observation: Functional Outcomes/Other Observations: Oswestry Low Back Pain Questionnaire: , 20% See media scan for details. Lumbar: Range of Motion: All Range of Motion documentation below is measured in degrees unless otherwise indicated. Lumbar: Flexion: AROM: 25% limited; No Change Extension: AROM: 25% limite; Increased Pain (Reproduces pain) Left Side Bending: AROM: Full Right Side Bending: AROM: 25% limited (Left low back pain) Flexibility: Robert Test : Tight ITB's bilaterally. Hamstrings: Left: -20 Right: -30 Strength: All strength measurements out of 5 unless otherwise indicated. Hip Flexion (L2-3): Left: 4-/5 Right: 4-/5 Hip Abduction: Left: 4-/5 Right: 4-/5 Knee Flexion (S2): Left: 4-/5 Right: 4-/5 Knee Extension (L3-4): Left: 5/5 Right: 5/5 Ankle Dorsiflexion (L4): Left: 5/5 Right: 5/5 Hallux Extension (L5): Left: 5/5 Right: 5/5 Abdominals: (Lower abdominals 3/5) Special Tests: FADIR causes anterior hip pain bilaterally- does not reproduce back pain. Negative for Left: Straight Leg Raise, NICOLE and FADIR Negative for Right: Straight Leg Raise, NICOLE and FADIR Posture/Palpation: Posture: Posterior Pelvic tilt. Left innominate is relatively anteriorly rotated compared to right . Mobilization to correct this did not change her pain today. (Contract / relax or hip extensors.) + Spring test at L5 and at T10. FRSL L5 Palpation comment: Bilateral lower lumbar paraspinals. TREATMENT: Learner: patient Readiness: eager Method: explanation and teach back Pt received an evaluation this date. Pt was educated on the findings of the evaluation and on the plan of care. Explained the concept that the trunk needs stability and hips need flexibility; her body is opposite with the trunk being weak and unstable and the hips are tight- especially the hamstrings. Pt was in agreement with the plan of care. Pt was educated on the importance of consistent attendance and following the home program. Attendance policy was reviewed and he was in agreement. She was shown posterior pelvic tilt with marching, and hamstring stretches with leg on a door framefor a home exercise program. ASSESSMENT: Other Details: Therapy Diagnosis: Weakness, abnormal posture Medical Diagnosis: Chronic bilateral low back pain without sciatica Cee March is a 26 y.o. patient referred to Physical Therapy with deficits noted including impairments of decreased strength, decreased range of motion, increased pain, postural faults and joint hypomobility which contribute to the following areas of functional restriction or limitation Decreased tolerance for walking , lifting, working. She demonstrates weakness in the core and hips and tightness in the hamstrings creating an uneven pull on her lumbar spine. She also has a + Spring test at L5 and T 10 indicating increased irritation at those specific areas. Clinical impression at this time: Patient will benefit from ongoing skilled Physical Therapy intervention. Rehab potential: good. Although she has had this pain for years, she is young and active and appears to be motivated to improve by doing exercises. Complexities that are a barrier to service: no foreseeable barriers All charges entered today are appropriate and [...] relief, soft tissue extensibility and joint mobility (31554) - Therapeutic exercise program for: motion/mobility, strengthening, flexibility, and functional limitations (54059) - Therapeutic activities for functional activity education/training, and in home safety recommendations as appropriate (79711) - Neuro Muscular Re-education for body mechanics education and postural re- education as appropriate(25570) - Patient education regarding posture, ergonomics, body mechanics, HEP progression and exercise performance - Individualized home exercise program - Modalities as needed for pain relief, anti-inflammatory effect and soft tissue extensibility - Mechanical traction (99622) - Trigger point dry needling for pain relief and reducing tension in associated musculature (15878 or 61317) Precautions: No specific precautions Treatment may be altered based on patient progression and symptoms. The plan of care, as well as the benefits and risks of therapy were reviewed with the patient and the patient consented to treatment.. Cosigned by Bessy Alcaraz APRN, CNP at 04/06/2022 9:37 PM CDT documented in this encounter Plan of Treatment Upcoming Encounters Date Type Department Care Team (Late st Contact Info) Description 08/19/2024 8:45 AM SALES AND MARKETING MANAGER Office Visit [facility] [place] [address] [place] [address] Bessy Alcaraz APRN, CNP #[address] [address] documented as of this encounter Visit Diagnoses Diagnosis Weakness- Primary Other malaise and fatigue Chronic bilateral low back pain without sciatica Abnormal posture documented in this encounter Additional Health Concerns Assessment Noted Time PHQ-9 Depression Total Score: 11 022 4:00 PM CDT documented as of this encounter Care Teams Photo Equipment Technician Relationship Specialty Start Date End Date Bessy Alcaraz APRN, CNP #[address] [address] PCP - General Advanced Practice Nurse 10/30/20 Bessy Alcaraz APRN, CNP #[address] [address] Nurse Practitioner Advanced Practice Nurse 10/28/20 documented as of this encounter
--- OUTSIDE RECORDS SUMMARY | 2024-07-28 05:11 | XMS_ITS | Encounter Summary ---
Author Organization [facility] [employer] Care Team Providers Care Vertical Boring Mill Operator Name Role Phone Bessy Alcaraz APRN, CNP Unavailable +- [phone] Bessy Alcaraz APRN, CNP Primary Care Provid er Encounter Details Date Type Department Care Team (Latest Contact Info) Description 10/26/2021 Travel Social History Tobacco Use Types Packs/Day [...] st Contact Info) Description 08/19/2024 8:45 AM RETREAD BUILDER Office Visit [facility] Medical Group - Family [facility] #2 [place] [address] Bessy Alcaraz APRN, CNP #[address] [address] documented as of this encounter Visit Diagnoses Not on filedocumented in this encounter Additional Health Concerns Assessment Noted Time PHQ-9 Depression Total Score: 11 10/26/ 022 4:00 PM CDT documented as of this encounter Care Teams Vertical Boring Mill Operator Relationship Specialty Start Date End Date Bessy Alcaraz APRN, ARAM #[address] [address] PCP - General Advanced Practice Nurse 10/30/20 Bessy Alcaraz APRN, ARAM #[address] [address] Nurse Practitioner Advanced Practice Nurse 10/28/20 documented as of this encounter
--- OUTSIDE RECORDS SUMMARY | 2024-07-28 05:11 | XMS_ITS | Encounter Summary ---
Author Organization [facility] [employer] Care Team Providers Care Pre K Special Education Teacher Name Role Phone Bessy Alcaraz APRN, CNP Unavailable +- [phone] Bessy Alcaraz APRN, CNP Primary Care Provid er Encounter Details Date Type Department Care Team (Latest Contact Info) Description 04/15/2022 Travel Social History Tobacco Use Types Packs/Day [...] Contact Info) Description 08/19/2024 8:45 AM CLOTH SHRINKING TESTER Office Visit [facility] Medical Group - Family [facility] #[address] [place] [address] Bessy Alcaraz APRN, CNP #[address] [address] documented as of this encounter Visit Diagnoses Not on filedocumented in this encounter Additional Health Concerns Assessment Noted Time PHQ-9 Depression Total Score: 11 10/26/ 022 4:00 PM CDT documented as of this encounter Care Teams Pre K Special Education Teacher Relationship Specialty Start Date End Date Bessy Alcaraz APRN, ARAM #[address] [address] PCP - General Advanced Practice Nurse 10/30/20 Bessy Alcaraz APRN, ARAM #[address] [address] Nurse Practitioner Advanced Practice Nurse 10/28/20 documented as of this encounter
--- OUTSIDE RECORDS SUMMARY | 2024-07-28 05:11 | XMS_ITS | Encounter Summary ---
Author Organization [facility] [employer] Care Team Providers Care Dynamometer Tester Name Role Phone Bessy Alcaraz APRN, CNP Unavailable +- [phone] Bessy Alcaraz APRN, CNP Primary Care Provid er Encounter Details Date Type Department Care Team (Latest Contact Info) Description 01/18/2022 Travel Social History Tobacco Use Types Packs/Day Years Used Date Smoking Tobacco: Never Smokeless Tobacco: Never Alcohol Use Standard Drinks/Week Comments Yes 0 (1 standard drink = 0.6 oz pur e alcohol) Rarely PHQ-2 Answer Date Recorded Total Score - Questions 1-9 11 /11/2021 Education Answer Date Recorded What is the [...] suspected to have Coronavirus/COVID-19? No / Unsure 01/18/2022 11:46 AM CDT documented as of this encounter Plan of Treatment Upcoming Encounters Date Type Department Care Team (Late st Contact Info) Description 08/19/2024 8:45 AM GLOBAL SUPPLY CHAIN DIRECTOR Office Visit [facility] Medical Group - Family [facility] #2 [place] [address] Bessy Alcaraz APRN, CNP #[address] [address] documented as of this encounter Visit Diagnoses Not on filedocumented in this encounter Additional Health Concerns Assessment Noted Time PHQ-9 Depression Total Score: 11 10/26/ 022 4:00 PM CDT documented as of this encounter Care Teams Dynamometer Tester Relationship Specialty Start Date End Date Bessy Alcaraz APRN, ARAM #[address] [address] PCP - General Advanced Practice Nurse 10/30/20 Bessy Alcaraz APRN, ARAM #[address] [address] Nurse Practitioner Advanced Practice Nurse 10/28/20 documented as of this encounter
--- OUTSIDE RECORDS SUMMARY | 2024-07-28 05:11 | XMS_ITS | Encounter Summary ---
Author Organization [facility] [employer] Care Team Providers Care Fish Dressing Machine Feeder Name Role Phone Bessy Alcaraz APRN, CNP Unavailable +- [phone] Bessy Alcaraz APRN, CNP Primary Care Provid er Encounter Details Date Type Department Care Team (Latest Contact Info) Description 03/29/2022 Travel Social History Tobacco Use Types Packs/Day [...] st Contact Info) Description 08/19/2024 8:45 AM CUT OFF TENDER GLASS Office Visit [facility] Medical Group - Family [facility] #2 [place] [address] Bessy Alcaraz APRN, CNP #[address] [address] documented as of this encounter Visit Diagnoses Not on filedocumented in this encounter Additional Health Concerns Infection Onset Date Last Indicated Resolved Time COVID - 19 Confirmed 03/10/2022 03/10/2022 022 12:16 AM CDT Assessment Noted Time PHQ-9 Depression Total Score: 11 022 4:00 PM CDT documented as of this encounter Care Teams Fish Dressing Machine Feeder Relationship Specialty Start Date End Date Bessy Alcaraz APRN, ARAM #[address] [address] PCP - General Advanced Practice Nurse 10/30/20 Bessy Aclaraz APRN, ARAM #[address] [address] Nurse Practitioner Advanced Practice Nurse 10/28/20 documented as of this encounter
--- OUTSIDE RECORDS SUMMARY | 2024-07-28 05:11 | XMS_ITS | Encounter Summary ---
Author Organization [facility] [employer] Care Team Providers Care General Office Assistant Name Role Phone Bessy Alcaraz APRN, CNP Unavailable +- [phone] Bessy Alcaraz APRN, CNP Primary Care Provid er Encounter Details Date Type Department Care Team (Latest Contact Info) Description 01/20/2022 Travel Social History Tobacco Use Types Packs/Day [...] st Contact Info) Description 08/19/2024 8:45 AM VEGETABLES COOK Office Visit [facility] Medical Group - Family [facility] #2 [place] [address] Bessy Alcaraz APRN, CNP #[address] [address] documented as of this encounter Visit Diagnoses Not on filedocumented in this encounter Additional Health Concerns Assessment Noted Time PHQ-9 Depression Total Score: 11 10/26/ 022 4:00 PM CDT documented as of this encounter Care Teams General Office Assistant Relationship Specialty Start Date End Date Bessy Alcaraz APRN, ARAM #[address] [address] PCP - General Advanced Practice Nurse 10/30/20 Bessy Alcaraz APRN, ARAM #[address] [address] Nurse Practitioner Advanced Practice Nurse 10/28/20 documented as of this encounter
--- OUTSIDE RECORDS SUMMARY | 2024-07-28 05:11 | XMS_ITS | Encounter Summary ---
Author Organization [facility] [employer] Care Team Providers Care Wood Casket Assembler Name Role Phone Bessy Alcaraz APRN, CNP Unavailable +1- [phone] Bessy Alcaraz APRN, CNP Primary Care Provid er Encounter Details Date Type Department Care Team (Latest Contact Info) Description 02/05/2021 Travel Social History Tobacco Use Types Packs/Day [...] st Contact Info) Description 08/19/2024 8:45 AM METAL TUBE CUTTER Office Visit [facility] Medical Group - Family Medicine [facility] #2 [place] [address] Bessy Alcaraz APRN, ARAM #[address] [address] documented as of this encounter Visit Diagnoses Not on filedocumented in this encounter Additional Health Concerns Assessment Noted Time PHQ-9 Depression Total Score: 12 021 3:00 PM CDT documented as of this encounter Care Teams Wood Casket Assembler Relationship Specialty Start Date End Date Bessy Alcaraz APRN, ARAM #[address] [address] PCP - General Advanced Practice Nurse 10/30/20 Bessy Alcaraz APRN, ARAM #[address] [address] Nurse Practitioner Advanced Practice Nurse 10/28/20 documented as of this encounter
--- OUTSIDE RECORDS SUMMARY | 2024-07-28 05:11 | XMS_ITS | Encounter Summary ---
Author Organization [facility] [employer] Care Team Providers Care Air Brake Man Name Role Phone Bessy Alcaraz APRN, CNP Unavailable +- [phone] Bessy Alcaraz APRN, CNP Primary Care Provid er Encounter Details Date Type Department Care Team (Latest Contact Info) Description 03/24/2022 Travel Social History Tobacco Use Types Packs/Day [...] st Contact Info) Description 08/19/2024 8:45 AM COTTAGE PARENT Office [facility] Medical [facility] - Family [facility] #2 [place] [address] Bessy Alcaraz APRN, CNP #[address] [address] documented as of this encounter Visit Diagnoses Not on filedocumented in this encounter Additional Health Concerns Infection Onset Date Last Indicated Resolved Time COVID - 19 Confirmed 03/10/2022 03/10/2022 022 12:16 AM CDT Assessment Noted Time PHQ-9 Depression Total Score: 11 022 4:00 PM CDT documented as of this encounter Care Teams Air Brake Man Relationship Specialty Start Date End Date Bessy Alcaraz APRN, ARAM #[address] [address] PCP - General Advanced Practice Nurse 10/30/20 Bessy Alcaraz APRN, ARAM #[address] [address] Nurse Practitioner Advanced Practice Nurse 10/28/20 documented as of this encounter
--- OUTSIDE RECORDS SUMMARY | 2024-07-28 05:11 | XMS_ITS | Encounter Summary ---
Author Organization [employer] [facility] Care Team Providers Care Digital Marketing Intern Name Role Phone Bessy Alcaraz APRN, CNP Unavailable + [phone] Bessy Alcaraz APRN, CNP Primary Care Provid er Encounter Details Date Type Department Care Team (Latest Contact Info) Description 01/08/2021 Travel Social History Tobacco Use Types Packs/Day Years Used Date Smoking Tobacco: Never Smokeless Tobacco: Never Alcohol Use Standard Drinks/Week Comments Yes 0 (1 standard drink = 0.6 oz pur e alcohol) Rarely PHQ-2 Answer Date Recorded Total Score - Questions 1-9 12 04/03/2021 Sexually Active Control Partners Comments Yes I.U.D. [...] have Coronavirus / COVID-19? No / Unsure 01/08/2021 12:18 PM CDT documented as of this encounter Plan of Treatment Upcoming Encounters Date Type Department Care Team (Late st Contact Info) Description 08/19/2024 8:45 AM CASTING OPERATOR Office Visit [facility] Medical Group - Family Medicine [facility] #2 [place] [address] Bessy Alcaraz APRN, CNP #[address] [address] documented as of this encounter Visit Diagnoses Not on filedocumented in this encounter Additional Health Concerns Assessment Noted Time PHQ-9 Depression Total Score: 12 021 3:00 PM CDT documented as of this encounter Care Teams Digital Marketing Intern Relationship Specialty Start Date End Date Bessy Alcaraz APRN, ARAM #[address] [address] PCP - General Advanced Practice Nurse 10/30/20 Bessy Alcaraz APRN, ARAM #[address] [phone] Nurse Practitioner Advanced Practice Nurse 10/28/20 documented as of this encounter
--- OUTSIDE RECORDS SUMMARY | 2024-07-28 05:11 | XMS_ITS | Encounter Summary ---
Author Organization [employer] [facility] Care Team Providers Care Director Web Name Role Phone Bessy Alcaraz APRN, CNP Unavailable + [phone] Bessy Alcaraz APRN, CNP Primary Care Provid er Encounter Details Date Type Department Care Team (Latest Contact Info) Description 11/23/2020 Travel Social History Tobacco Use Types Packs/Day [...] have Coronavirus / COVID-19? No / Unsure 11/23/2020 12:56 PM CDT documented as of this encounter Plan of Treatment Upcoming Encounters Date Type Department Care Team (Late st Contact Info) Description 08/19/2024 8:45 AM GAS COLLECTION SYSTEM OPERATOR Office Visit [facility] Medical Group - Family Medicine [facility] #2 [place] [address] Bessy Alcaraz APRN, CNP #[address] [address] documented as of this encounter Visit Diagnoses Not on filedocumented in this encounter Additional Health Concerns Assessment Noted Time PHQ-9 Depression Total Score: 12 021 3:00 PM CDT documented as of this encounter Care Teams Director Web Relationship Specialty Start Date End Date Bessy Alcaraz APRN, ARAM #[address] [address] PCP - General Advanced Practice Nurse 10/30/20 Bessy Alcaraz APRN, ARAM #[address] [phone] Nurse Practitioner Advanced Practice Nurse 10/28/20 documented as of this encounter
--- OUTSIDE RECORDS SUMMARY | 2024-07-28 05:11 | XMS_ITS | Encounter Summary ---
Author Organization [facility] [employer] Care Team Providers Care Manager Inventory Control Name Role Phone Bessy Alcaraz APRN, CNP Unavailable +- [phone] Bessy Alcaraz APRN, CNP Primary Care Provid er Encounter Details Date Type Department Care Team (Latest Contact Info) Description 02/02/2022 Travel Social History Tobacco Use Types Packs/Day [...] Contact Info) Description 08/19/2024 8:45 AM SUPERVISOR ASBESTOS REMOVAL Office Visit [facility] Medical Group - Family [facility] #2 [place] [address] Bessy Alcaraz APRN, CNP #[address] [address] documented as of this encounter Visit Diagnoses Not on filedocumented in this encounter Additional Health Concerns Assessment Noted Time PHQ-9 Depression Total Score: 11 10/26/ 022 4:00 PM CDT documented as of this encounter Care Teams Manager Inventory Control Relationship Specialty Start Date End Date Bessy Alcaraz APRN, ARAM #[address] [address] PCP - General Advanced Practice Nurse 10/30/20 Bessy Alcaraz APRN, ARAM #[address] [address] Nurse Practitioner Advanced Practice Nurse 10/28/20 documented as of this encounter
--- OUTSIDE RECORDS SUMMARY | 2024-07-28 05:11 | XMS_ITS | Encounter Summary ---
Author Organization [facility] Address [address] [place] [address] Phone Care Team Providers Care Accounting Coordinator Name Role Phone Bessy Alcaraz APRN, CNP Unavailable Bessy Alcaraz APRN, CNP Primary Care Provid er Reason for Visit * Reason Onset Date Comments Appointment 03/10/2022 Encounter Details Date Type Department Care Team (Late st Contact Info) Description 03/10/2022 Telephone [facility] [address] [place] [address] Bessy Alcaraz APRN, CNP #[address] [address] Appointment Social History Tobacco Use [...] Miscellaneous Notes * Telephone Encounter - Miri Hylton RN - 03/10/2022 9:56 AM CDT Patient calling and stating that she tested positive for covid on 03/09, so she needs to reschedule her appointment scheduled for today. Rescheduled patient as below. All Patient Appointments Provider Department Dept Phone 03/25/2022 10:30 AM Bessy Alcaraz [facility] [phone] Assistive services verified. documented in this encounter Plan of Treatment Upcoming Encounters Date Type Department Care Team (Late st Contact Info) Description 08/19/2024 8:45 AM UNION CONTRACT REPRESENTATIVE Office Visit [facility] [address] [place] [address] Bessy Alcaraz APRN, CNP #[address] [address] documented as of this encounter Visit Diagnoses Not on filedocumented in this encounter Additional Health Concerns Infection Onset Date Last Indicated Resolved Time COVID - 19 Confirmed 03/10/2022 03/10/2022 022 12:16 AM CDT Assessment Noted Time PHQ-9 Depression Total Score: 11 022 4:00 PM CDT documented as of this encounter Care Teams Accounting Coordinator Relationship Specialty Start Date End Date Bessy Alcaraz APRN, CNP #[address] [address] PCP - General Advanced Practice Nurse 10/30/20 Bessy Alcaraz APRN, CNP #[id number] [address] Nurse Practitioner Advanced Practice Nurse 10/28/20 documented as of this encounter
--- OUTSIDE RECORDS SUMMARY | 2024-07-28 05:11 | XMS_ITS | Encounter Summary ---
Author Organization [facility] [employer] Care Team Providers Care Wood Barker Name Role Phone Bessy Alcaraz APRN, CNP Unavailable +- [phone] Bessy Alcaraz APRN, CNP Primary Care Provid er Encounter Details Date Type Department Care Team (Latest Contact Info) Description 11/17/2021 Travel Social History Tobacco Use Types Packs/Day [...] suspected to have Coronavirus/COVID-19? No / Unsure 11/17/2021 10:12 AM CDT documented as of this encounter Plan of Treatment Upcoming Encounters Date Type Department Care Team (Late st Contact Info) Description 08/19/2024 8:45 AM ELECTROENCEPHALOGRAM TECHNOLOGIST Office Visit [facility] Medical Group - Family [facility] #2 [place] [address] Bessy Alcaraz APRN, CNP #[address] [address] documented as of this encounter Visit Diagnoses Not on filedocumented in this encounter Additional Health Concerns Assessment Noted Time PHQ-9 Depression Total Score: 11 10/26/ 022 4:00 PM CDT documented as of this encounter Care Teams Wood Barker Relationship Specialty Start Date End Date Bessy Alcaraz APRN, ARAM #[address] [address] PCP - General Advanced Practice Nurse 10/30/20 Bessy Alcaraz APRN, ARAM #[address] [address] Nurse Practitioner Advanced Practice Nurse 10/28/20 documented as of this encounter
--- OUTSIDE RECORDS SUMMARY | 2024-07-28 05:11 | XMS_ITS | Encounter Summary ---
Author Organization [facility] [employer] Care Team Providers Care Astrophysics Teacher Name Role Phone Bessy Alcaraz APRN, CNP Unavailable +1- [phone] Bessy Alcaraz APRN, CNP Primary Care Provid er Encounter Details Date Type Department Care Team (Latest Contact Info) Description 01/21/2021 Travel Social History Tobacco Use Types Packs/Day [...] have Coronavirus / COVID-19? No / Unsure 01/21/2021 1:49 PM CDT documented as of this encounter Plan of Treatment Upcoming Encounters Date Type Department Care Team (Late st Contact Info) Description 08/19/2024 8:45 AM WILD ANIMAL CARETAKER Office Visit [facility] Medical Group - Family Medicine [facility] #2 [place] [address] Bessy Alcaraz APRN, ARAM #[address] [address] documented as of this encounter Visit Diagnoses Not on filedocumented in this encounter Additional Health Concerns Assessment Noted Time PHQ-9 Depression Total Score: 12 021 3:00 PM CDT documented as of this encounter Care Teams Astrophysics Teacher Relationship Specialty Start Date End Date Bessy Alcaraz APRN, ARAM #[address] [address] PCP - General Advanced Practice Nurse 10/30/20 Bessy Alcaraz APRN, ARAM #[address] [address] Nurse Practitioner Advanced Practice Nurse 10/28/20 documented as of this encounter
--- OUTSIDE RECORDS SUMMARY | 2024-07-28 05:11 | XMS_ITS | Encounter Summary ---
Author Organization [facility] [employer] Care Team Providers Care Match Marker Name Role Phone Bessy Alcaraz APRN, CNP Unavailable +- [phone] Bessy Alcaraz APRN, CNP Primary Care Provid er Encounter Details Date Type Department Care Team (Latest Contact Info) Description 03/15/2022 Travel Social History Tobacco Use Types Packs/Day [...] st Contact Info) Description 08/19/2024 8:45 AM TRANSPORTATION ASSISTANT Office Visit [facility] Medical Group - Family [facility] #2 [place] [address] Bessy Alcaraz APRN, CNP #[address] [address] documented as of this encounter Visit Diagnoses Not on filedocumented in this encounter Additional Health Concerns Infection Onset Date Last Indicated Resolved Time COVID - 19 Confirmed 03/10/2022 03/10/2022 022 12:16 AM CDT Assessment Noted Time PHQ-9 Depression Total Score: 11 022 4:00 PM CDT documented as of this encounter Care Teams Match Marker Relationship Specialty Start Date End Date Bessy Alcaraz APRN, ARAM #[address] [address] PCP - General Advanced Practice Nurse 10/30/20 Bessy Alcaraz APRN, ARAM #[address] [address] Nurse Practitioner Advanced Practice Nurse 10/28/20 documented as of this encounter
--- OUTSIDE RECORDS SUMMARY | 2024-07-28 05:11 | XMS_ITS | Encounter Summary ---
Author Organization [facility] Address [address] [place] [address] Phone Care Team Providers Care Director Of Health Education Name Role Phone Bessy Alcaraz APRN, CNP Unavailable +- [phone] Bessy Alcaraz APRN, CNP Primary Care Provid er Encounter Details Date Type Department Care Team (Late st Contact Info) Description 03/29/2022 1:15 PM CDT Lab [facility] [address] [place] [address] Bessy Alcaraz APRN, ARAM #[address] [address] Exposure to blood or body fluid; RUQ pain Discharge Disposition: Discharged to home [...] Notes * Bessy Alcaraz APRN, CNP - 03/29/2022 1:15 PM CDT Please call patient. Her labs look ok. Her HIV and Hep screens are negative as well. documented in this encounter Plan of Treatment Upcoming Encounters Date Type Department Care Team (Late st Contact Info) Description 08/19/2024 8:45 AM FERRULER Office Visit [facility] Medical Group - [facility] #[address] [place] [address] Bessy Alcaraz APRN, CNP #[address] [address] documented as of this encounter Procedures Procedure Name Priority Date/Time Associated Diagnosis Comments HIV 1 & 2 ANTIBODY & ANTIGEN SCREEN Routine 03/29/2022 1:42 PM CDT Exposure to blood or body fluid CBC WITH AUTO DIFFERENTIAL Routine 03/29/2022 1:42 PM CDT RUQ pain HEPATITIS C ANTIBODY Routine 03/29/2022 1:42 PM CDT Exposure to blood or body fluid HEPATITIS B SURFACE ANTIBODY (HBSAB) Routine 03/29/2022 1:42 PM CDT Exposure to blood or body fluid HEPATITIS B SURFACE ANTIGEN (HBSAG) Routine 03/29/2022 1:42 PM CDT Exposure to blood or body fluid HEPATITIS B CORE ANTIBODY IGM Routine 03/29/2022 1:42 PM CDT Exposure to blood or body fluid COMPLETE BLOOD COUNT (CBC) WITH DIFF Routine 03/29/2022 1:42 PM CDT RUQ pain LIPASE Routine 03/29/2022 1:41 PM CDT RUQ pain CMP (COMPREHENSIVE METABOLIC PANEL) Routine 03/29/2022 1:41 PM CDT RUQ pain AMYLASE Routine 03/29/2022 1:41 PM CDT RUQ pain documented in this encounter Results * CBC WITH AUTO DIFFERENTIAL (03/29/2022 1:42 PM CDT) WBC 7.72 4.00 - 12.00 10(3)/mcL 03/29/2022 2:41 PM CDT [facility] RBC 4.34 3.80 - 5.30 10(6)/mcL 03/29/2022 2:41 PM CDT [facility] HEMOGLOBIN (HGB) 13.4 12.0 - 15.8 g/dL 03/29/2022 2:41 PM CDT [facility] HEMATOCRIT (HCT) 40.3 36.0 - 47.0 % 03/29/2022 2:41 PM CDT [facility] MCV 92.9 82.0 - 96.0 fL 03/29/2022 2:41 PM CDT [facility] MCH 30.9 26.0 - 34.0 pg 03/29/2022 2:41 PM CDT [facility] MCHC 33.3 31.0 - 36.0 g/dL 03/29/2022 2:41 PM CDT [facility] PLATELET COUNT 332 140 - 440 10(3)/mcL 03/29/2022 2:41 PM CDT [facility] RDW 12.5 11.8 - 15.5 % 03/29/2022 2:41 PM CDT [facility] MPV 10.4 9.7 - 12.4 fL 03/29/2022 2:41 PM CDT [facility] NEUTROPHILS 63.6 47.0 - 73.0 % 03/29/2022 2:41 PM CDT [facility] LYMPHOCYTES 25.6 18.0 - 42.0 % 03/29/2022 2:41 PM CDT [facility] MONOCYTES 7.4 4.0 - 12.0 % 03/29/2022 2:41 PM CDT [facility] EOSINOPHILS 3.0 0.0 - 5.0 % 03/29/2022 2:41 PM CDT [facility] BASOPHILS 0.4 0.0 - 1.0 % 03/29/2022 2:41 PM CDT [facility] ABSOLUTE NEUTROPHILS 4.91 1.60 - 7.70 10(3)/[facility] 03/29/2022 2:41 PM CDT [facility] ABSOLUTE LYMPHOCYTES 1.98 1.30 - 3.20 10(3)/[facility] 03/29/2022 2:41 PM CDT [facility] ABSOLUTE MONOCYTES 0.57 0.20 - 1.00 10(3)/[facility] 03/29/2022 2:41 PM CDT [facility] ABSOLUTE EOSINOPHIL 0.23 0.00 - 0.40 10(3)/[facility] 03/29/2022 2:41 PM CDT [facility] ABSOLUTE BASOPHILS 0.03 0.00 - 0.10 10(3)/[facility] 03/29/2022 2:41 PM CDT [facility] NRBC PER 100 WBC 0 03/29/20 2:41 PM CDT [facility] Blood Venipuncture / Unknown 03/29/2022 1:42 PM CDT 03/29/2022 2:37 PM CDT us Bessy Alcaraz SPEECH COMMUNICATION PROFESSOR, GRAIN OPERATIONS MANAGER HEMATOLOGY ORDERABLE S Final Result [facility] [address] [place] [address] * HEPATITIS B SURFACE ANTIGEN (HBSAG) (03/29/2022 1:42 PM CDT) HEPATITIS B SURFACE ANTIGEN NON DETECTED NON DETECTED [facility] [id number] B 03/29/2022 9:[address] [facility] Comment:A nonreactive test r esult does not [...] CDT 03/29/2022 2:37 PM CDT Bessy Alcaraz SPEECH COMMUNICATION PROFESSOR, GRAIN OPERATIONS MANAGER CHEMISTRY ORDERABLES Final Result Performing Organization Address [facility] Co de Phone Number [facility] [address] [place] [address], [place] * HEPATITIS B SURFACE ANTIBODY (HBSAB) (03/29/2022 1:42 PM CDT) Pathologist [facility] HEPATITIS B SURFACE ANTIBODY <8.00 mIU/mL [place] [id number] B 03/29/2022 9:[address] [facility] Comment:Individual is consid ered not immune to HBV infection. Blood Venipuncture / Unknown 03/29/2022 1:42 PM CDT 03/29/2022 2:37 PM CDT us [place] SPEECH COMMUNICATION PROFESSOR, GRAIN OPERATIONS MANAGER CHEMISTRY ORDERABLES Final Result Performing Organization Address City/[facility] Co de Phone Number [facility] [address] [place] [address], [place] * HEPATITIS B CORE ANTIBODY IGM (03/29/2022 1:42 PM CDT) HEP B CORE AB (IGM) NON DETECTED NON DETECTED [facility] [id number] B 03/29/2022 9:[address] [facility] Comment:IGM anti-HBC not det ected. Does not exclude the possibility of exposure to or infection with HBV. Blood Venipuncture / Unknown 03/29/2022 1:42 PM CDT 03/29/2022 2:37 PM CDT Bessy Alcaraz APRN, GRAIN OPERATIONS MANAGER CHEMISTRY ORDERABLES Final Result Performing Organization Address City/[facility]/ZIP Co de Phone Number [facility] [address] [place] [address], [place] * HEPATITIS C ANTIBODY (03/29/2022 1:42 PM CDT) Pathologist [facility] hepatitis C antibody 0.09 <1 S/CO [facility] ARCH [id number] B 03/29/2022 9:[address] [facility] Comment: Signal/Cutoff ratio ??< 0.79 is Nondetected Signal/Cutoff ratio 0.80-0.99 is Grayzone Signal/Cutoff ratio > 0.99 is Detected Supplemental assays are recommended if signal/cutoff ratio is >/=1.00. ??Signal/cutoff ratio result >/= 5.00 is 97% predictive of positivity for recombinant immunoblot assay (RIBA) and will be reported to the [place] Department of Public Health as required. Blood Venipuncture / Unknown 03/29/2022 1:42 PM CDT 03/29/2022 2:37 PM CDT Bessy Alcaraz APRN, GRAIN OPERATIONS MANAGER CHEMISTRY ORDERABLES Final Result Performing Organization Address City/[facility] Co de Phone Number [facility] [address] [place] [address], [place] * HIV 1 & 2 ANTIBODY & ANTIGEN SCREEN (03/29/2022 1:42 PM CDT) Pathologist [facility] HIV 1 & 2 ANTIBODY & ANTIGEN SCREEN NON DETECTED NON DETECTED [facility] ARCH [id number] B 03/29/2022 11:[address] [facility] Blood Venipuncture / Unknown 03/29/2022 1:42 PM CDT 03/29/2022 2:37 PM CDT Bessy Alcaraz APRN, GRAIN OPERATIONS MANAGER LAB SEND OUTS Arlene l Result [facility] [address] [place] [address], [place] * AMYLASE (03/29/2022 1:41 PM CDT) AMYLASE 53 28 - 100 U/L 03/29/2022 3:01 PM CDT [facility] Blood Venipuncture / Unknown 03/29/2022 1:41 PM CDT 03/29/2022 2:37 PM CDT Bessy Alcaraz APRN, GRAIN OPERATIONS MANAGER CHEMISTRY ORDERABLES Final Result Performing Organization Address City/[facility]/ZIP Co de Phone Number [facility] [address] [place] [address] * LIPASE (03/29/2022 1:41 PM CDT) LIPASE 22.2 13 - 60 U/L 03/29/2022 3:01 PM CDT [facility] Blood Venipuncture / Unknown 03/29/2022 1:41 PM CDT 03/29/2022 2:37 PM CDT Bessy Alcaraz SPEECH COMMUNICATION PROFESSOR, GRAIN OPERATIONS MANAGER CHEMISTRY ORDERABLES Final Result [facility] [address] [place] [address] * (ABNORMAL) CMP (COMPREHENSIVE METABOLIC PANEL) (03/29/2022 1:41 PM CDT) SODIUM 133(L) 136 - 144 mmol/L 03/29/2022 3:01 PM CDT [facility] POTASSIUM 3.9 3.5 - 5.1 mmol/L 03/29/2022 3:01 PM [facility] CHLORIDE 99(L) 100 - 110 mmol/L 03/29/2022 3:01 PM [facility] CO2, VENOUS 23 22 - 32 mmol/L 03/29/2022 3:01 PM [facility] ANION GAP 14.9 8.0 - 20.0 mmol/L 03/29/2022 3:01 PM [facility] GLUCOSE 87 70 - 99 mg/dL 03/29/2022 3:01 PM [facility] BUN 9 6 - 20 mg/dL 03/29/2022 3:01 PM [facility] CREATININE, BLOOD 0.59(L) 0.60 - 1.10 mg/dL 03/29/2022 3:01 PM [facility] BUN/CREATININE RATIO 15 12 - 20 ratio 03/29/2022 3:01 PM [facility] TOTAL PROTEIN 7.4 6.0 - 8.3 g/dL 03/29/2022 3:01 PM [facility] ALBUMIN 4.4 3.5 - 5.2 g/dL 03/29/2022 3:01 PM [facility] Comment: The colormetric methods used for the determination of Albumin may lead to falsely elevated test results in patients suffering from renal failure or insufficiency due to interference with other proteins. A/G RATIO 1.5 1.0 - 2.0 03/29/2022 3:01 PM [facility] CALCIUM 9.3 8.9 - 10.3 mg/dL 03/29/2022 3:01 PM [facility] T BILI 0.3 <=1.2 mg/dL 03/29/2022 3:01 PM [facility] SGOT (AST) 13 <=32 U/L 03/29/2022 3:01 PM [facility] SGPT (ALT) 14 <=41 U/L 03/29/2022 3:01 PM [facility] ALKALINE PHOSPHATASE 100 35 - 105 U/L 03/29/2022 3:01 PM CDT [facility] IS THE PATIENT REQUIRED TO BE FASTING? No 03/29/2022 3:01 PM CDT [facility] GFR, ESTIMATED >60 >=60 03/29/2022 3:01 PM CDT [facility] Comment: Creatinine Clearance is the preferred criteria for selecting drug dose adjustments in renally impaired patients. ??The GFR is provided as additional pertinent clinical information. GFR is reported in mL/min/1.73 sq m. Calculation based on the Chronic Kidney Disease Epidemiology Collaboration (CKD- EPI) equation refit without adjustment for race. GFR, EST. >60 >=60 022 3:01 PM CDT [facility] GFR, EST. NONAFRICAN >60 >=60 03/29/2022 3:01 PM CDT [facility] Blood Venipuncture / Unknown 03/29/2022 1:41 PM CDT 03/29/2022 2:37 PM CDT us Bessy Alcaraz APRN, CNP CHEMISTRY ORDERABLES Final Result Performing Organization Address City/State/[facility] Co de Phone Number [facility] [address] [place] [address] documented in this encounter Visit Diagnoses Diagnosis Exposure to blood or body fluid Personal history of contact with and (suspected) exposure to potentially hazardous body fluids RUQ pain Abdominal pain, right upper quadrant documented in this encounter Additional Health Concerns Infection Onset Date Last Indicated Resolved Time COVID - 19 Confirmed 03/10/2022 03/10/2022 022 12:16 AM CDT Assessment Noted Time PHQ-9 Depression Total Score: 11 022 4:00 PM CDT documented as of this encounter Care Teams Director Of Health Education Relationship Specialty Start Date End Date Bessy Alcaraz APRN, CNP [address] [address] PCP - General Advanced Practice Nurse 10/30/20 Bessy Alcaraz APRN, GRAIN OPERATIONS MANAGER #[address] [phone] Nurse Practitioner Advanced Practice Nurse 10/28/20 documented as of this encounter
--- OUTSIDE RECORDS SUMMARY | 2024-07-28 05:11 | XMS_ITS | Encounter Summary ---
Author Organization [facility] [employer] Care Team Providers Care Weight Trainer Name Role Phone Bessy Alcaraz APRN, CNP Unavailable +- [phone] Bessy Alcaraz APRN, CNP Primary Care Provid er Encounter Details Date Type Department Care Team (Latest Contact Info) Description 02/15/2022 Travel Social History Tobacco Use Types Packs/Day [...] suspected to have Coronavirus/COVID-19? No / Unsure 02/15/2022 4:54 PM CDT documented as of this encounter Plan of Treatment Upcoming Encounters Date Type Department Care Team (Late st Contact Info) Description 08/19/2024 8:45 AM SHEET TAKER Office Visit [facility] Medical Group - Family [facility] #[address] [place] [address] Bessy Alcaraz APRN, CNP #[address] [address] documented as of this encounter Visit Diagnoses Not on filedocumented in this encounter Additional Health Concerns Assessment Noted Time PHQ-9 Depression Total Score: 11 10/26/ 022 4:00 PM CDT documented as of this encounter Care Teams Weight Trainer Relationship Specialty Start Date End Date Bessy Alcaraz APRN, ARAM #[address] [address] PCP - General Advanced Practice Nurse 10/30/20 Bessy Alcaraz APRN, ARAM #[address] [address] Nurse Practitioner Advanced Practice Nurse 10/28/20 documented as of this encounter
--- OUTSIDE RECORDS SUMMARY | 2024-07-28 05:11 | XMS_ITS | Encounter Summary ---
Author Organization [facility] [employer] Care Team Providers Care Twister Tender Name Role Phone Bessy Alcaraz APRN, CNP Unavailable +- [phone] Bessy Alcaraz APRN, CNP Primary Care Provid er Encounter Details Date Type Department Care Team (Latest Contact Info) Description 07/28/2021 Travel Social History Tobacco Use Types Packs/Day [...] Coronavirus / COVID-19? Yes 07/28/2021 1:34 PM FROZEN FOOD DEPARTMENT MANAGER documented as of this encounter Plan of Treatment Upcoming Encounters Date Type Department Care Team (Late st Contact Info) Description 08/19/2024 8:45 AM FROZEN FOOD DEPARTMENT MANAGER Office Visit [facility] Medical Group - Family Medicine [facility] #[address] [place] [address] Bessy Alcaraz APRN, CNP #[address] [address] documented as of this encounter Visit Diagnoses Not on filedocumented in this encounter Additional Health Concerns Assessment Noted Time PHQ-9 Depression Total Score: 12 021 3:00 PM CDT documented as of this encounter Care Teams Twister Tender Relationship Specialty Start Date End Date Bessy Alcaraz APRN, ARAM #[address] [address] PCP - General Advanced Practice Nurse 10/30/20 Bessy Alcaraz APRN, CNP #[address] [address] Nurse Practitioner Advanced Practice Nurse 10/28/20 documented as of this encounter
--- OUTSIDE RECORDS SUMMARY | 2024-07-28 05:11 | XMS_ITS | Encounter Summary ---
Author Organization [facility] [employer] Care Team Providers Care Turn Operator Name Role Phone Bessy Alcaraz APRN, CNP Unavailable +- [phone] Bessy Alcaraz APRN, CNP Primary Care Provid er Encounter Details Date Type Department Care Team (Latest Contact Info) Description 03/10/2022 Travel Social History Tobacco Use Types Packs/Day [...] st Contact Info) Description 08/19/2024 8:45 AM MAINTENANCE AIDE Office Visit [facility] Medical Group - Family [facility] #2 [place] [address] Bessy Alcaraz APRN, CNP #[address] [address] documented as of this encounter Visit Diagnoses Not on filedocumented in this encounter Additional Health Concerns Infection Onset Date Last Indicated Resolved Time COVID - 19 Confirmed 03/10/2022 03/10/2022 022 12:16 AM CDT Assessment Noted Time PHQ-9 Depression Total Score: 11 022 4:00 PM CDT documented as of this encounter Care Teams Turn Operator Relationship Specialty Start Date End Date Bessy Alcaraz APRN, ARAM #[address] [address] PCP - General Advanced Practice Nurse 10/30/20 Besys Alcaraz APRN, ARAM #[address] [address] Nurse Practitioner Advanced Practice Nurse 10/28/20 documented as of this encounter
--- OUTSIDE RECORDS SUMMARY | 2024-07-28 05:11 | XMS_ITS | Encounter Summary ---
Author Organization [facility] [employer] Care Team Providers Care Commuter Pilot Name Role Phone Bessy Alcaraz APRN, CNP Unavailable +- [phone] Bessy Alcaraz APRN, CNP Primary Care Provid er Encounter Details Date Type Department Care Team (Latest Contact Info) Description 04/19/2022 Travel Social History Tobacco Use Types Packs/Day [...] st Contact Info) Description 08/19/2024 8:45 AM PATIENT TRANSPORTER Office Visit [facility] Medical Group - Family [facility] #2 [place] [address] Bessy Alcaraz APRN, CNP #[address] [address] documented as of this encounter Visit Diagnoses Not on filedocumented in this encounter Additional Health Concerns Assessment Noted Time PHQ-9 Depression Total Score: 11 10/26/ 022 4:00 PM CDT documented as of this encounter Care Teams Commuter Pilot Relationship Specialty Start Date End Date Bessy Alcaraz APRN, ARAM #[address] [address] PCP - General Advanced Practice Nurse 10/30/20 Bessy Alcaraz APRN, ARAM #[address] [address] Nurse Practitioner Advanced Practice Nurse 10/28/20 documented as of this encounter
--- OUTSIDE RECORDS SUMMARY | 2024-07-28 05:11 | XMS_ITS | Encounter Summary ---
Author Organization [facility] Address [address] [place] [address] Phone Care Team Providers Care Rider Ticket Worker Name Role Phone Bessy Alcaraz APRN, CNP Unavailable +1- [phone] Bessy Alcaraz APRN, CNP Primary Care Provid er Reason for Referral * Consult, Test & Initiate Treatment (Routine) - Closed Specialty Diagnoses / Procedures Referred By Edmund abrams Referred To Contact Behavioral Health Diagnoses Forgetfulness Bessy Alcaraz APRN, CNP [address] [address] Phone: tel: fax: Meagan Luke, [facility] Phone: tel: fax: Referral ID Status Reason Start Date Expiration Date Visits Re quested Visits Authorized [id number] Closed 11/17/2021 1 1 Scheduling Instructions Cee is being referred for screenign adhd. Please contact patient for scheduling questions or concerns. Reason for Visit * Reason Comments Preventive Care Physical/Check Up Encounter Details Date Type Department Care Team ([facility] st Contact Info) Description 11/17/2021 11:00 AM CDT Office Visit [facility] Medical Group - [facility] [address] [place] [address] Bessy Alcaraz APRN, SPOUTER #[address] [address] Fabian's disease (Primary Dx); Chronic bilateral low back pain without sciatica; Forgetfulness Discharge Disposition: Discharged to home or Selfcare [...] Sign Reading Time Taken Comments Blood Pressure 108/82 11/17/2021 11:25 AM CDT Pulse 54 11/17/2021 11:25 AM CDT Temperature 36.6 ??C (97.8 ??F) 11/17/2021 11:25 AM C DT Respiratory Rate 18 11/17/2021 11:25 AM CDT Oxygen Saturation 96% 11/17/2021 11:25 AM CDT Inhaled Oxygen Concentration - - Weight 83.7 kg (184 lb 9.6 oz) 11/17/2021 11:25 AM CDT Height 152.4 cm (5') 11/17/2021 11:25 AM CDT Body Mass Index 36.05 11/17/2021 11:25 AM CDT documented in this encounter Progress Notes * Zeinab Alfonso - 11/17/2021 11:00 AM CDT Cee March, 25 y.o., female is here for Preventive Care (Physical/Check Up) Medication Refills: Patient reports/denies need for medication refills. Orders Pended: no Requested Prescriptions No prescriptions requested or ordered in this encounter Home Medications Medication Sig Start Date End Date Taking? Authorizing Provider levonorgestrel (Kyleena) 19.5 MG IUD intrauterine device (IUD) 09/21/17 Yes Provider, MD Raymundo There are no [...] time * Bessy Alcaraz APRN, ARAM - 11/17/2021 11:00 AM CDT [facility] #2 [facility] [address] Dept: [phone] Dept Loc: [phone] Loc Patient: Cee March : 1995 Sex: female Subjective Subjective: HPI: Cee March presents for Preventive Care (Physical/Check Up) . Patient presents today for general checkup. She has few concerns today. She has concerns regarding her back pain, thyroid, a mole, and weight gain. Patient reports she has been seeing a chiropractor for some time. She has being treated for low back pain that is worse whenever she works. 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 She reports that radiates from her low back to her buttock. States that he did an x-ray about a year ago and is concerned about herniated disc. She reports that he ordered an MRI however she has not been able to get this. She does report intermittent numbness in her feet. Does not seem worse when her back pain is worse. She states her pain is the best in the morning and gets worse throughout the day. Describes as a dull pain. She has been using lidocaine patches, heating pad, and NSAIDs without improvement. Patient has a history of an abnormal thyroid panel. She reports that she would like this repeated. She is concerned as she is having swelling lymph nodes under her jaw that are painful. She also has an abnormal mole on her back she would like checked out. She also reports that she is not been able to lose weight while on phentermine. She states that sheexercises 3 days a week. She tries to eat healthy but she does not follow a specific diet. She is interested in trying Saxenda. Patient also like to discuss ADHD. She reports that she has forgetfulness and this has bothered herfor several years. She reports that she had been feeling for some time she may have ADHD a but never wanted to pursue it until now as it is starting to affect her job. Past Medical History Positives Diagnosis Date ??? [...] History: Procedure Laterality Date ??? COLONOSCOPY 2016 [place] ??? COLONOSCOPY Left 12/27/2018 Procedure: COLONOSCOPY-HEMORRHOIDS; Surgeon: Scooby Cuellar MD; Location: [facility]; Service: Gastroenterology ??? ORAL SURGERY PROCEDURE Abcess tooth removed and wisdom teeth ??? TONSILLECTOMY Social History Tobacco Use ??? Smoking status: Never Smoker ??? Smokeless tobacco: Never Used Vaping Use ??? Vaping Use: Never used Substance Use Topics ??? Alcohol use: Yes Comment: Rarely ??? Drug use: Never Family History Problem Relation [...] Hypertension Maternal Aunt ??? Hypothyroidism Maternal Grandmother Review of Systems Constitutional: Negative for chills, fatigue and fever. HENT: Negative for congestion, ear pain, facial swelling, hearing loss, sinus pressure and sore throat. Eyes: Negative for pain and redness. Respiratory: Negative for cough, chest tightness, shortness of breath and wheezing. Cardiovascular: Negative for chest pain and palpitations. Gastrointestinal: Negative for abdominal pain, blood in stool, constipation, diarrhea and nausea. Genitourinary: Negative for dysuria, flank pain and urgency. Musculoskeletal: Positive for back pain. Negative for arthralgias, gait problem and myalgias. Skin: Negative for rash and wound. Neurological: Positive for numbness (intermittant feet ). Negative for dizziness, syncope, weaknessand headaches. Hematological: Positive for adenopathy. Psychiatric/Behavioral: Positive for decreased concentration. Negative for agitation, confusion, dysphoric mood, self-injury and sleep disturbance. The patient is not nervous/anxious and is not hyperactive. Objective Objective: BP 108/82 (BP Location: Left Arm, BP Position: Sitting, BP Cuff Size: Regular) Pulse 54 Temp 97.8 ??F (36.6 ??C) (Temporal) Resp 18 Ht 5' (1.524 m) Wt 184 lb 9.6 oz (83.7 kg) LMP 03/18/2020 (LMP Unknown) SpO2 96% BMI 36.05 kg/m?? Physical Exam Vitals and nursing note reviewed. Constitutional: General: She is not in acute distress. Appearance: Normal appearance. She is well-developed. She is not diaphoretic. HENT: Head: Normocephalic and atraumatic. Right Ear: Tympanic membrane, ear canal and external ear normal. Left Ear: Tympanic membrane, ear canal and external ear normal. Nose: Nose normal. Mouth/Throat: Mouth: Mucous membranes [...] rebound. Hernia: No hernia is present. Musculoskeletal: Cervical back: Normal range of motion and neck supple. No tenderness. Lumbar back: Tenderness (mild tenderness throughout low back) present. No swelling, deformity, lacerations, spasms or bony tenderness. Decreased range of motion. Negative right straight leg raise test and negative left straight leg raise test. No scoliosis. Lymphadenopathy: Head: Right side of head: Submental and submandibular adenopathy present. Left side of head: Submental and submandibular adenopathy present. Skin: General: Skin is warm and dry. [...] all orders for this visit: Fabian's disease - ANTI THYROID PEROXIDASE ANTIBODY; Future - THYROID STIMULATING HORMONE (TSH); Future - THYROXINE (T4) FREE; Future - TRIIODOTHYRININE (T3) FREE; Future - CMP (COMPREHENSIVE METABOLIC PANEL); Future - COMPLETE BLOOD COUNT (CBC) WITH DIFF; Future Chronic bilateral low back pain without sciatica - CMP (COMPREHENSIVE METABOLIC PANEL); Future - COMPLETE BLOOD COUNT (CBC) WITH DIFF; Future Forgetfulness - BEHAVIORAL HEALTH REFERRAL; Future Discussed with patient regarding her symptoms. Mole has no abnormalities that raise concern. Discussed with patient that her enlarged lymph nodes are likely from the change in weather and as long as they do not any larger and her tender this is a good sign. Patient verbalized understanding. She will continue to monitor it for now. Repeat lab work for Fabian's disease ordered. Discussed with patient regarding her low back pain. Discussed that it appears muscular that she should focus on proper lifting technique while at work and that we could send her to physical therapy if needed later down the road if she would like. Verbalized understanding. ADHD screening performed. Patient does have some concerning factors. Will send her to be fully evaluated. Patient agreeable. Preston is not covered by insurance. Recommend seeing a power grader operator, verbalized understanding. Return in about 6 months (around 05/19/2022). documented in this encounter Plan of Treatment Upcoming Encounters Date Type Department Care Team (Late st Contact Info) Description 08/19/2024 8:45 AM DENTAL LAB TECHNICIAN Office Visit [facility] Medical Group - Family Medicine [facility] #2 [place] [address] Bessy Alcaraz APRN, ARAM #[address] [address] Scheduled Orders Name Type Priority Associated Diagnoses Orde r Schedule ANTI THYROID PEROXIDASE ANTIBODY Lab Routine Fabian's disease Expected: 02/08/2022, Expires: 07/11/2022 Scheduled Referrals Name Type Priority Associated Diagnoses Order Schedule BEHAVIORAL HEALTH REFERRAL Outpatient Referral Routine Forgetfulness Expected: 11/17/2021, Expires: 11/17/2022 documented as of this encounter Results * (ABNORMAL) CMP (COMPREHENSIVE METABOLIC PANEL) (01/18/2022 12:23 PM CDT) SODIUM 130(L) 136 - 144 mmol/L 01/18/2022 3:07 PM CDT [facility] POTASSIUM 3.9 3.5 - 5.1 mmol/L 01/18/2022 3:07 PM [facility] CHLORIDE 99(L) 100 - 110 mmol/L 01/18/2022 3:07 PM [facility] CO2, VENOUS 21(L) 22 - 32 mmol/L 01/18/2022 3:07 PM [facility] ANION GAP 13.9 8.0 - 20.0 mmol/L 01/18/2022 3:07 PM T [facility] GLUCOSE 87 70 - 99 mg/dL 01/18/2022 3:07 PM [facility] BUN 7 6 - 20 mg/dL 01/18/2022 3:07 PM [facility] CREATININE, BLOOD 0.51(L) 0.60 - 1.10 mg/dL 01/18/2022 3:07 PM [facility] BUN/CREATININE RATIO 14 12 - 20 ratio 01/18/2022 3:07 PM [facility] TOTAL PROTEIN 7.2 6.0 - 8.3 g/dL 01/18/2022 3:07 PM [facility] ALBUMIN 4.4 3.5 - 5.2 g/dL 01/18/2022 3:07 PM [facility] Comment: The colormetric methods used for the determination of Albumin may lead to falsely elevated test results in patients suffering from renal failure or insufficiency due to interference with other proteins. A/G RATIO 1.6 1.0 - 2.0 01/18/2022 3:07 PM [facility] CALCIUM 9.0 8.9 - 10.3 mg/dL 01/18/2022 3:07 PM [facility] T BILI 0.3 <=1.2 mg/dL 01/18/2022 3:07 PM [facility] SGOT (AST) 18 <=32 U/L 01/18/2022 3:07 PM [facility] SGPT (ALT) 13 <=41 U/L 01/18/2022 3:07 PM CDT [facility] ALKALINE PHOSPHATASE 104 35 - 105 U/L 01/18/2022 3:07 PM CDT [facility] GFR, EST. NONAFRICAN >60 >=60 01/18/2022 3:07 PM CDT [facility] GFR, EST. >60 >=60 022 3:07 PM CDT [facility] Comment: Creatinine Clearance is the preferred criteria for selecting drug dose adjustments in renally impaired patients. ??The GFR is provided as additional pertinent clinical information. GFR is reported in mL/min/1.73 sq m. IS THE PATIENT REQUIRED TO BE FASTING? No 01/18/2022 3:07 PM CDT [facility] Blood Venipuncture / Unknown 01/18/2022 12:23 PM CDT 01/18/2022 12:46 PM CDT Bessy Alcaraz ACID FILLER, SPOUTER CHEMISTRY ORDERABLES Final Result [facility] [address] [place] [address] * TRIIODOTHYRININE (T3) FREE (01/18/2022 12:23 PM CDT) FREE T3 2.7 1.6 - 3.9 pg/mL [facility] ARCH [id number] F 01/18/2022 9:41 PM CDT [facility] Blood Venipuncture / Unknown 01/18/2022 12:23 PM CDT 01/18/2022 12:46 PM CDT Bessy Tayloreck ACID FILLER, SPOUTER CHEMISTRY ORDERABLES Final Result [facility] [address] [facility] [place] [address], * THYROXINE (T4) FREE (01/18/2022 12:23 PM CDT) T4 FREE 1.1 0.9 - 1.7 ng/dL 01/18/2022 3:10 PM CDT [facility] Blood Venipuncture / Unknown 01/18/2022 12:23 PM CDT 01/18/2022 12:46 PM CDT Bessy Alcaraz APRN, CNP CHEMISTRY ORDERABLES Final Result [facility] [address] [place] [address] * THYROID STIMULATING HORMONE (TSH) (01/18/2022 12:23 PM CDT) TSH 1.870 0.270 - 4.200 mIU/L 01/18/2022 3:10 PM CDT [facility] Blood Venipuncture / Unknown 01/18/2022 12:23 PM CDT 01/18/2022 12:46 PM CDT Bessy Alcaraz APRN, CNP CHEMISTRY ORDERABLES Final Result [facility] [address] [place] [address] documented in this encounter Visit Diagnoses Diagnosis Fabian's disease- Primary Chronic lymphocytic thyroiditis Chronic bilateral low back pain without sciatica Forgetfulness Other general symptoms documented in this encounter Additional Health Concerns Assessment Noted Time PHQ-9 Depression Total Score: 11 10/26/ 022 4:00 PM CDT documented as of this encounter Care Teams Rider Ticket Worker Relationship Specialty Start Date End Date Bessy Alcaraz APRN, CNP #[address] [address] PCP - General Advanced Practice Nurse 10/30/20 Bessy Alcaraz APRN, CNP #[address] [address] Nurse Practitioner Advanced Practice Nurse 10/28/20 documented as of this encounter
--- OUTSIDE RECORDS SUMMARY | 2024-07-28 05:11 | XMS_ITS | Encounter Summary ---
Author Organization [facility] Address [address] [place] [address] Phone Care Team Providers Care Cut Plug Packer Name Role Phone Bessy Alcaraz APRN, CNP Unavailable +1- [phone] Bessy Alcaraz APRN, CNP Primary Care Provid er Reason for Referral * Consult, Test & Initiate Treatment (Routine) - Closed Specialty Diagnoses / Procedures Referred By Edmund abrams Referred To Contact Behavioral Health Diagnoses Attention deficit Anxiety Nisha Mercer, PAC [address] [place] [address] Phone: tel: fax: Meagan Luke, [facility] Phone: tel: fax: Referral ID Status Reason Start Date Expiration Date Visits Re quested Visits Authorized [id number] Closed 01/29/2021 1 1 Scheduling Instructions Cee is being referred for would like evaluation for possible ADD, has anxiety. Please contact patient for scheduling questions or concerns. See below for Cee's current medications, allergies and problem list. CURRENT MEDS: Current Outpatient Medications: acetaminophen (TYLENOL) 325 MG Tablet, Take 325 mg by mouth every 4 hours as needed., Disp: , Rfl: ibuprofen (MOTRIN) 200 MG Tablet, Take 200 mg by mouth every 8 hours as needed., Disp: , Rfl: levonorgestrel (Kyleena) 19.5 MG IUD, intrauterine device (IUD), Disp: , Rfl: linaCLOtide (Linzess) 72 MCG Capsule, Take 1 Cap by mouth every morning (before breakfast)., Disp: 30 Cap, Rfl: 2 ondansetron (ZOFRAN-ODT) 4 MG TABLET DISPERSIBLE, , Disp: , Rfl: Phentermine HCl 37.5 MG Tablet, Take 1 Tablet by mouth every morning (before breakfast)., Disp: 30 Tablet, Rfl: 0 No current facility-administered medications for this visit. ALLERGIES: No Known Allergies PROBLEM LIST: There is no problem list on file for this patient. Reason for Visit * Reason Comments Follow-up 4 week Encounter Details Date Type Department Care Team (Late st Contact Info) Description 01/29/2021 1:15 PM CDT Office Visit [facility] Medical [facility] [address] [place] [address] Nisha Mercer PAC [address] [place] [address] BMI 34.0-34.9,adult (Primary Dx); Attention deficit; Anxiety Discharge Disposition: Discharged to home or [...] Sign Reading Time Taken Comments Blood Pressure 112/78 01/29/2021 1:20 PM CDT Pulse 97 01/29/2021 1:20 PM CDT Temperature 36.9 ??C (98.4 ??F) 01/29/2021 1:20 PM CD T Respiratory Rate 18 01/29/2021 1:20 PM CDT Oxygen Saturation 98% 01/29/2021 1:20 PM CDT Inhaled Oxygen Concentration - - Weight 81 kg (178 lb 9.6 oz) 01/29/2021 1:20 PM CDT Height 152.4 cm (5') 01/29/2021 1:20 PM CDT Body Mass Index 34.88 01/29/2021 1:20 PM CDT documented in this encounter Progress Notes * Ania Montaño MA - 01/29/2021 1:15 PM CDT Cee Aldridge, 25 y.o., female is here for Follow-up (4 week) Medication Refills: Patient reports/denies need for medication [...] (before breakfast). 04/13/20 Yes Erinn Montelongo PAC ondansetron (ZOFRAN-ODT) 4 MG TABLET DISPERSIBLE 12/17/20 Raymundo Luong MD Phentermine HCl 37.5 MG Tablet Take 1 Tablet by mouth every morning (before breakfast). 12/18/20 YesBessy Alcarza APN, RN NEUROSURGICAL There are no discontinued medications. I have [...] today: No BPA's at this time * Nisha Mercer PAC - 01/29/2021 1:15 PM CDT Subjective: Patient is in the office today for follow-up on phentermine. She has been taking higher dose for the last month. She has lost 8 lb. Denies any adverse effects from medication. She is questioning she has attention deficit disorder. Finds it difficult to finish tasks. Has anxiety. Will be starting school soon. Situational stressors. Review of Systems Constitutional: Negative for fever. Respiratory: Negative for shortness of breath. Cardiovascular: Negative for chest pain and palpitations. Gastrointestinal: Negative for abdominal pain and constipation. Psychiatric/Behavioral: Negative for suicidal ideas. The patient is nervous/anxious. Objective: Physical Exam Vitals reviewed. Constitutional: Appearance: Normal appearance. She is not ill-appearing. HENT: Head: Normocephalic and atraumatic. Eyes: General: Right eye: No discharge. Left eye: No discharge. Extraocular Movements: Extraocular movements intact. Cardiovascular: Rate and Rhythm: Normal rate and regular rhythm. Heart sounds: No murmur heard. Pulmonary: Effort: Pulmonary effort is normal. No respiratory distress. Breath sounds: Normal breath sounds. No wheezing. Skin: General: Skin is warm. Neurological: Mental Status: She is alert. Psychiatric: Mood and Affect: Mood normal. Assessment and Plan See Diagnoses, Orders, Follow-up, and Instructions .Diagnoses and all orders for this visit: BMI 34.0-34.9,adult - Phentermine HCl 37.5 MG Tablet; Take 1 Tablet by mouth every morning (before breakfast). Attention deficit - BEHAVIORAL HEALTH REFERRAL; Future Anxiety - BEHAVIORAL HEALTH REFERRAL; Future Other orders - ondansetron (ZOFRAN-ODT) 4 MG TABLET DISPERSIBLE Phentermine is refilled. Patient will continue on this medication for a total of 3 months. Will referred to Behavioral Health for evaluation of possible ADD. Also for counseling with anxiety. Follow-up in 2-3 months with primary care provider. documented in this encounter Plan of Treatment Upcoming Encounters Date Type Department Care Team (Late st Contact Info) Description 08/19/2024 8:45 AM CAREER DEVELOPMENT DIRECTOR Office Visit [facility] Medical Group - Family Medicine [facility] #2 [place] [address] Bessy Alcaraz APRN, ARAM [address] [address] Scheduled Referrals Name Type Priority Associated Diagnoses Order Schedule BEHAVIORAL HEALTH REFERRAL Outpatient Referral Routine Attention deficit Anxiety Expected: 01/31/2022, Expires: 07/04/2022 documented as of this encounter Visit Diagnoses Diagnosis BMI 34.0-34.9,adult- Primary Body Mass Index 34.0-34.9, adult Attention deficit Attention or concentration deficit Anxiety Anxiety state, unspecified documented in this encounter Additional Health Concerns Assessment Noted Time PHQ-9 Depression Total Score: 12 021 3:00 PM CDT documented as of this encounter Care Teams Cut Plug Packer Relationship Specialty Start Date End Date Bessy Alcaraz APRN, CNP #[address] [address] PCP - General Advanced Practice Nurse 10/30/20 Bessy Alcaraz APRN, CNP #[address] [address] Nurse Practitioner Advanced Practice Nurse 10/28/20 documented as of this encounter
--- OUTSIDE RECORDS SUMMARY | 2024-07-28 05:11 | XMS_ITS | Encounter Summary ---
Author Organization [facility] Address [address] [place] [address] Phone Care Team Providers Care Soft Mud Molder Name Role Phone Bessy Alcaraz APRN, CNP Unavailable + [phone] Bessy Alcaraz APRN, CNP Primary Care Provid er Reason for Visit * Reason Onset Date Comments Ear Pain 10/26/2021 Encounter Details Date Type Department Care Team (Late st Contact Info) Description 10/26/2021 Nurse Triage [facility] [address] [place] [address] Bessy Alcarza APRN, ARAM #[address] [address] Ear Pain Social History Tobacco [...] encounter Miscellaneous Notes * Telephone Encounter - Yessenia Crocker RN - 10/26/2021 10:47 AM CDT SITUATION: bilat ear pain BACKGROUND: Patient calling, hurt her ears in [place] [facility], a doctor there said she had a perforated left ear drum, right ear drum damage, right outer ear infection, gave prednisone and triben plus ear drops ASSESSMENT: Symptom Description / Location: bilat ear pain Pain (0-10): 8/10 Temp: normal Treatment / Response: triben plus ear drops, prednisone appt made with provider today 10/26/21 RECOMMENDATION: See care advice and disposition for Guideline First positive answer recorded, all responses to prior questions were negative. If symptoms increase, change or if new symptoms develop, call your HCP or call back. Recommendations were based on caller information and is not a diagnosis. Verified and reviewed all triage information with caller. Reason for Disposition ? ? All other earaches (Exceptions: earache lasting < 1 hour, and earache from air travel) Protocols used: [id number] documented in this encounter Plan of Treatment Upcoming Encounters Date Type Department Care Team (Late st Contact Info) Description 08/19/2024 8:45 AM BENCH PRECISION ASSEMBLER Office Visit [facility] Medical [facility] - Family Medicine [facility] [address] [place] [address] Bessy Alcaraz APRN, ARAM #[address] [address] documented as of this encounter Visit Diagnoses Not on filedocumented in this encounter Additional Health Concerns Assessment Noted Time PHQ-9 Depression Total Score: 11 022 4:00 PM CDT documented as of this encounter Care Teams Soft Mud Molder Relationship Specialty Start Date End Date Bessy Alcaraz APRN, CNP #[address] [address] PCP - General Advanced Practice Nurse 10/30/20 Bessy Alcaraz APRN, PILE DRIVER ENGINEER #[address] [address] Nurse Practitioner Advanced Practice Nurse 10/28/20 documented as of this encounter
--- OUTSIDE RECORDS SUMMARY | 2024-07-28 05:11 | XMS_ITS | Encounter Summary ---
Author Organization [facility] Address [address] [place] [address] Phone Care Team Providers Care Ramp Agent Name Role Phone Bessy Alcaraz APRN, CNP Unavailable + [phone] Bessy Alcaraz APRN, CNP Primary Care Provid er Encounter Details Date Type Department Care Team (Late st Contact Info) Description 04/22/2022 10:45 AM CDT Physical Therapy [facility] at [facility] [address] [facility], [facility] [address] [place] [address] Bessy Alcaraz APRN, CNP [address] [facility] [address] [place] [address] Annmarie Alves, FARM MORTGAGE AGENT [place] Discharge Disposition: Discharged to home or Selfcare [...] of Care - Annmarie Alves, TEMO - 04/22/2022 10:45 AM CDT Treatment Note - Electronically signed by: ANNMARIE ALVES PTA April 22, 2022 SUBJECTIVE: Pt reports she had increased pain Monday night. Pt states she woke up Monday and her pain was back down. Pt states she did her exercises Monday nd Objective TREATMENT: Refer to PT OP Rehab Therapy Treatment flowsheet for details/minutes. Home Exercises distributed via handout and text. Toptal information: Access Code: [email or web address] URL: [email or web address] Date: 04/19/2022 Prepared by: Annmarie Alves Exercises [...] on their elbows utilizing mat in standing. Reviewed lifting techniques. Instructed pt in proper techniques of lifting with legs, keeping back straight, keeping load close to her body, and not twisting trunk with load. Pt was able to return demonstration Patient response to new home exercises provided today: no increase in pain Interventions provided this session: therex and manual therapy Therapist provided Education and Skilled therapy by instructed pt in exercises and corrected form when needed.. ASSESSMENT: Other Details: Patient demonstrates limited progress as evidenced by still having increased pain. Reviewed exercises for home and discontinued bridging due to increased pain. Pt was able to display proper form with lifting. Pt reported decreased pain after manual therapy. Patient would benefit from continued skilled interventions, [...] relief, soft tissue extensibility and joint mobility (26932) - Therapeutic exercise program for: motion/mobility, strengthening, flexibility, and functional limitations (02680) - Therapeutic activities for functional activity education/training, and in home safety recommendations as appropriate (52226) - Neuro Muscular Re-education for body mechanics education and postural re- education as appropriate(13486) - Patient education regarding posture, ergonomics, body mechanics, HEP progression and exercise performance - Individualized home exercise program - Modalities as needed for pain relief, anti-inflammatory effect and soft tissue extensibility - Mechanical traction (55255) - Trigger point dry needling for pain relief and reducing tension in associated musculature (03396 or 47626) Precautions: No specific precautions Treatment may be altered based on patient progression and symptoms. The plan of care, as well as the benefits and risks of therapy were reviewed with the patient and the patient consented to treatment.. documented in this encounter Plan of Treatment Upcoming Encounters Date Type Department Care Team (Late st Contact Info) Description 08/19/2024 8:45 AM LETTER OF CREDIT DOCUMENT EXAMINER Office Visit [facility] - Family Medicine - [place] [address] [place] [address] Bessy Alcaraz APRN, ARAM [address] [address] documented as of this encounter Visit Diagnoses Not on filedocumented in this encounter Additional Health Concerns Assessment Noted Time PHQ-9 Depression Total Score: 11 10/26/ 022 4:00 PM CDT documented as of this encounter Care Teams Ramp Agent Relationship Specialty Start Date End Date Bessy Alcaraz APRN, ARAM [address] [address] PCP - General Advanced Practice Nurse 10/30/20 Bessy Alcaraz APRN, CNP #[address] [address] Nurse Practitioner Advanced Practice Nurse 10/28/20 documented as of this encounter
--- OUTSIDE RECORDS SUMMARY | 2024-07-28 05:11 | XMS_ITS | Encounter Summary ---
Author Organization [facility] [employer] Care Team Providers Care Payment Manager Name Role Phone Bessy Alcaraz APRN, CNP Unavailable [phone] Bessy Alcaraz APRN, CNP Primary Care Provid er Encounter Details Date Type Department Care Team (Latest Contact Info) Description 03/15/2021 Travel Social History Tobacco Use Types Packs/Day [...] st Contact Info) Description 08/19/2024 8:45 AM BIOMETRY TEACHER Office Visit [facility] Medical Group - Family Medicine [facility] [address] [place] [address] Bessy Alcaraz APRN, ARAM [address] [address] documented as of this encounter Visit Diagnoses Not on filedocumented in this encounter Additional Health Concerns Assessment Noted Time PHQ-9 Depression Total Score: 12 021 3:00 PM CDT documented as of this encounter Care Teams Payment Manager Relationship Specialty Start Date End Date Bessy Alcaraz APRN, ARAM [address] [address] PCP - General Advanced Practice Nurse 10/30/20 Bessy Alcaraz APRN, ARAM [address] [address] Nurse Practitioner Advanced Practice Nurse 10/28/20 documented as of this encounter
--- OUTSIDE RECORDS SUMMARY | 2024-07-28 05:12 | XMS_ITS | Encounter Summary ---
Author Organization [facility] Address [address] [place] [address] Phone Care Team Providers Care Distribution Systems Serviceperson Name Role Phone Nicolas Blue MD Primary Care Provider [phone] Encounter Details Date Type Department Care Team (Late st Contact Info) Description 04/13/2020 Telephone [facility] - Gastroenterology [facility] [address] [place] [address] Jose C Reeves, DO [address] [address] Social History Tobacco Use Types Packs/Day Years Used Date Smoking Tobacco: Never Smokeless Tobacco: Never Alcohol Use Standard Drinks/Week Comments Yes 0 (1 standard drink = 0.6 oz pur e alcohol) rarely Sexually Active Control Partners Comments Yes Comments No Sex and Gender Information Value Date Recorded Sex Assigned at Not on file Legal Sex Female 3:47 PM CDT Gender Identity Not on file Sexual Orientation Not on file COVID-19 Exposure Response Date Recorded In the last month, have you been in contact with someone who was confirmed or suspected to have Coronavirus / COVID-19? No / Unsure 04/13/2020 3:07 PM CDT documented as of this encounter Miscellaneous Notes * Telephone Encounter - Vianca Rivas - 04/13/2020 3:45 PM CDT EGD prep instructions documented in this encounter Plan of Treatment Upcoming Encounters Date Type Department Care Team (Late st Contact Info) Description 08/19/2024 8:45 AM MITTEN SEWER Office Visit [facility] - Family Medicine - [place] [address] [place] [phone] Bessy Alcaraz APRN, ELECTRICAL HIGH TENSION TESTER [address] [place] [address] [phone] documented as of this encounter Visit Diagnoses Not on filedocumented in this encounter Care Teams Distribution Systems Serviceperson Relationship Specialty Start Date End Date Nicolas Blue MD PCP - General Internal Medicine 12/20/18 10/27/20 documented as of this encounter
--- OUTSIDE RECORDS SUMMARY | 2024-07-28 05:12 | XMS_ITS | Encounter Summary ---
Author Organization [facility] [employer] Care Team Providers Care Fiberglass Boat Finisher Name Role Phone Nicolas Blue MD Primary Care Provider [phone] Encounter Details Date Type Department Care Team (Latest Contact Info) Description 07/29/2019 Travel Social History Tobacco Use Types Packs/Day Years Used Date Smoking Tobacco: Never Smokeless Tobacco: Never Alcohol Use Standard Drinks/Week Comments Yes 0 (1 standard drink = 0.6 oz pur e alcohol) rarely Comments No Sex and Gender Information Value Date Recorded Sex Assigned at Not on file Legal Sex Female 3:47 PM CDT Gender Identity Not on file Sexual Orientation Not on file documented as of this encounter Plan of Treatment Upcoming Encounters Date Type Department Care Team (Late st Contact Info) Description 08/19/2024 8:45 AM GLOBAL CEO Office Visit [facility] Medical Group - Family Medicine [facility] [address] [place] [phone] Bessy Alcaraz APRN, CARDIAC CARE UNIT NURSE #[address] [phone] documented as of this encounter Visit Diagnoses Not on filedocumented in this encounter Care Teams Fiberglass Boat Finisher Relationship Specialty Start Date End Date Nicolas Blue MD PCP - General Internal Medicine 12/20/18 10/27/20 documented as of this encounter
--- OUTSIDE RECORDS SUMMARY | 2024-07-28 05:12 | XMS_ITS | Encounter Summary ---
Author Organization [facility] Address [address] [place] [address] Phone Care Team Providers Care Payment Processor Name Role Phone Bessy Alcaraz APRN, ARAM Unavailable + [phone] Bessy Alcaraz APRN, ARAM Primary Care Provid er Molly Costello APRN, VIDEO SYSTEM REPAIRER Unavailable Encounter Details Date Type Department Care Team (Late st Contact Info) Description 11/12/2020 Telephone [facility] [address] [place] [address] Bessy Alcaraz APRN, VIDEO SYSTEM REPAIRER [address] [address] Social History Tobacco Use Types [...] have Coronavirus / COVID-19? No / Unsure 10/30/2020 3:30 PM CDT documented as of this encounter Miscellaneous Notes * Telephone Encounter - Abbie Maddox, RN - 11/12/2020 4:29 PM CDT Patient calling in to make appointment she states that Bessy told her to call back in two weeks to make an appointment if she had no heard anything from us. Patient stating Bessy wanted to see her after we have gotten all of her medical records from previous providers. If requested please call patient to schedule appointment. Patient also has a 6week appointment Previous providers: Dr. Brad Chan [facility] in [place], [place] Cee Chavez (endo) [facility] in [place] (dragline operator) documented in this encounter Plan of Treatment Upcoming Encounters Date Type Department Care Team (Late st Contact Info) Description 08/19/2024 8:45 AM AREA INTELLIGENCE TECHNICIAN Office Visit [facility] - Family Medicine - Center [address] [place] [address] Bessy Alcaraz APRN, VIDEO SYSTEM REPAIRER [address] [address] documented as of this encounter Visit Diagnoses Not on filedocumented in this encounter Additional Health Concerns Infection Onset Date Last Indicated Resolved Time COVID - 19 Confirmed 03/10/2022 03/10/2022 022 12:16 AM CDT C. difficile Rule-Out 10/05/2023 10/05/20232023 12:19 AM CDT Assessment Noted Time PHQ-9 Depression Total Score: 12 021 3:00 PM CDT documented as of this encounter Care Teams Payment Processor Relationship Specialty Start Date End Date Bessy Alcaraz APRN, ARAM [address] [address] PCP - General Advanced Practice Nurse 10/30/20 Bessy Alcaraz APRN, VIDEO SYSTEM REPAIRER #[address] [phone] Nurse Practitioner Advanced Practice Nurse 10/28/20 Molly Costello APRN, VIDEO SYSTEM REPAIRER [address] [place] [address] Nurse Practitioner Advanced Practice Nurse 10/05/23 documented as of this encounter
--- OUTSIDE RECORDS SUMMARY | 2024-07-28 05:12 | XMS_ITS | Encounter Summary ---
Author Organization [facility] Address [address] [place] [address] Phone Care Team Providers Care Director Of Global Marketing Name Role Phone Nicolas Blue MD Primary Care Provider [phone] Reason for Referral * Other (Routine) - Canceled Specialty Diagnoses / Procedures Referred By Edmund abrams Referred To Contact Gastroenterology Diagnoses Nausea Procedures GASTRO PROCEDURE patient cancelled EGD with Dr. Reeves 05/25/2020 Erinn Montelongo PAC [address] [place] [address] Phone: tel: fax: Jose C Reeves DO Phone: tel: fax: Referral ID Status Reason Start Date Expiration Date V isits Requested Visits Authorized [id number] Canceled 04/13/2020 1 1 Reason for Visit * Reason Comments Medication Refill Needs script for calista lugo Nausea Bloated Encounter Details Date Type Department Care Team (Latest Contact Info) Description 04/13/2020 3:20 PM CDT Office Visit [facility] - Gastroenterology - [place] [address] [place] [address] Erinn Montelongo PAC [address] [place] [address] Irritable bowel syndrome with constipation (Primary Dx); Nausea Discharge Disposition: Discharged to home or Selfcare [...] Sign Reading Time Taken Comments Blood Pressure 130/68 04/13/2020 3:12 PM CDT Pulse 93 04/13/2020 3:12 PM CDT Temperature 36.9 ??C (98.5 ??F) 04/13/2020 3:12 PM CD T Respiratory Rate 18 04/13/2020 3:12 PM CDT Oxygen Saturation 97% 04/13/2020 3:12 PM CDT Inhaled Oxygen Concentration - - Weight 84 kg (185 lb 3.2 oz) 04/13/2020 3:12 PM CDT Height 152.4 cm (5') 04/13/2020 3:12 PM CDT Body Mass Index 36.17 04/13/2020 3:12 PM CDT documented in this encounter Patient Instructions * Patient Instructions* Erinn Montelongo, JAJA - 04/13/2020 3:20 PM CDT Images from the original note were not included. Natural fibers: all bran/ raisin bran/ fiber one/ oats Fruits such as apples/ pears/ prunes and juices of same Bananas can cause constipation Add generic benefiber daily to help regulate your system, may use up to 3 times a day Probiotic-highest colony count you can afford to purchase on a routine basis May use MiraLax as directed Continue to work on weight loss- try eating several small meals a day consisting of lean protein and non- starchy vegetables (at least 3 x) and low sugar / high fiber fruits no more than twice Calorie Lee Fat and Carbohydrate Counter To continue to provide excellent patient care, you may receive a survey regarding your visit today.To help us serve you better, please complete and return. These surveys are completely anonymous. Gluten-Free Diet for Celiac Disease Celiac disease means that you are sensitive to a protein called gluten. Gluten is found in certain grains. When you??eat??gluten, your immune system causes harm to your small intestines. The treatment for celiac disease is to stay away from foods and products that contain gluten. You will need to do this for the rest of your life. Resist the temptation to ???cheat,?? because even a small amount of gluten can cause symptoms to return. And it can??harm your body. This sheet gives you the basics about a gluten-free diet. If you need help, a??registered dietitian can teach you what foods and other products have gluten and how to keep away from them. Always read labels! Many foods may contain gluten, even if you think they don't. Get into the habit of reading ingredient labels before you eat. Choosing foods The most common source of gluten is wheat flour (this includes white flour). Wheat flour is used to make many baked goods, including breads, pastas, cereals, pastries, and pizza dough.??Gluten is also found in many foods that you might not think would have it. You will need to read food labels tolook for gluten in everything you eat. But your diet does not need to be boring. Many foods are naturally gluten-free. And many foods commonly made with wheat flour now come in gluten-free forms.?? Foods to stay away from Foods you can eat Bread, cereals, pasta, pastries, couscous, or pizza dough made with wheat flour (including white flour, farina, farro, emmer, durum, melody, and semolina) Bread, cereals, pasta, pastries, or pizza dough made with rice flour, almond flour, beans, potatoes, and other gluten-free substitutes Foods containing rye, barley (including malt), spelt, kamut, triticale, samuels's yeast, and bulgur Foods containing corn, cassava, rice, amaranth, buckwheat, millet, quinoa, arrowroot, teff, soy, andtapioca Processed meats Fresh meats and seafood (beef, chicken, turkey, johnston, pork, fish, shellfish), beans, and tofu Some dairy products with additives Many plain dairy products Many sauces, gravies, dressings, and condiments, including traditional soy sauce Vinegar, oils, andgluten-free substitutes Some granola bars and energy bars Granola bars and energy bars labeled gluten-free Some beers and spirits Wine, and gluten-free beers and distilled spirits Some soups Gluten-free soups Fruits and vegetables that are fried or breaded Fresh fruits and vegetables Many packaged foods Packaged foods labeled gluten-free Oats (check with your healthcare provider) Gluten-free oats Communion wafers Gluten-free communion wafers If you are exposed to gluten by accident Staying gluten-free means always being aware. Even if you are very careful, mistakes can happen. The food you eat can't come into contact with gluten. Your meals must be made with utensils that have not touched foods that contain gluten. Shared knives, cutting boards, toasters, and storage containers are risks for gluten exposure. Shared condiments may have crumbs that contain gluten. At restaurants, parties, and other places where you eat food prepared by others, ask how the food was made. Gluten can also be found in some non-food items. Some medicines contain gluten. So do some vitamin supplements. Ask your pharmacist before taking a medicine or supplement. Also, some shampoos, lotions, toothpastes, makeup, lipsticks as well as lip gloss and lip balm, glues, soaps, and other products contain gluten. It can be possible to ingest some gluten when using these projects. This is called cross-contamination. For example, this can happen if you use a lotion that has gluten and then touch food you eat. Children's tg and similar products have gluten. Any adult or child with celiac diseaseshould wash their hands after handling these. Coping with gluten-free living Living gluten-free can be hard. But it can be done. While there are many gluten- free foods now thatyou can buy, it is still a big change for many people. You may be upset that you can't eat your favorite foods, eat freely at restaurants, parties, or over the holidays. Household members may also beupset by the strict controls over food. If you face problems like these, think about joining a carroll c disease support group. Support groups offer tips on how to make a gluten-free lifestyle easier onyou and the people you live with. You can find ways to involve the people in your household. There are many ways to make gluten-free group meals. See ???More Resources?? below for help in finding a group. Bring safe foods that you enjoy to parties and school or work events. This can help you avoid the urge to grab something you shouldn???t eat. Following up with your healthcare provider You should see your healthcare provider at least once a year for a checkup. A simple blood test canshow if your celiac disease is under control. If you are having symptoms, your healthcare provider can help you find sources of gluten you may have missed. More resources To learn more about managing celiac disease, go to: ?? Celiac Disease Foundation: www.celiac.org ?? Academy of Nutrition and Dietetics: www.eatright.org ?? National Digestive Diseases Information Clearinghouse: www.digestive.niddk.nih.gov Aj last reviewed this educational content on 12/22/2016 ?? 7374-2275 The [employer]. [address] [place] [address]. All rights reserved. This information is not intended as a substitute for professional medical care. Always follow your healthcare professional's instructions. documented in this encounter Progress Notes * Erinn Montelongo PAC - 04/13/2020 3:20 PM CDT Images from the original note were not included. PROBLEM LIST: IBS with constipation Nausea Bloating Cee Aldridge is a . 24 y.o. female who presents with Chief Complaint Patient presents with ??? Medication Refill Needs script for linzess ??? Nausea ??? Bloated . DIAGNOSIS, PLAN AND FOLLOW UP: Diagnoses and all orders for this visit: Irritable bowel syndrome with constipation - linaCLOtide (Linzess) 72 MCG Capsule; Take 1 Cap by mouth every morning (before breakfast). Nausea - GASTRO PROCEDURE; Future Other orders - escitalopram (LEXAPRO) 20 MG Tablet - Tri-Sprintec 0.18/0.215/0.25 MG-35 MCG Tablet - Levonorgestrel (Aurora) 13.5 MG IUD; by Intrauterine route. IUD HPI/ ROS: Presents for 1 year follow-up for IBS with constipation. Reports not take Linzess on a daily basis as she ???does not have time?? . Explains that the Linzess causes quite a bit of diarrhea and see if she takes it on a daily basis she does not know how long is going to take for her bowels to stop moving. In between doses she reports she will be very constipated. Does have a lot of bloating and gas. Also complains about some weight gain and difficulty losing weight. Concerned about Fabian's syndrome although does report that she had labs with her primary care and her thyroid was normal. GENERAL: Weight gain; inability to lose weight. Denies fever/ chills/malaise/ fatigue/ aches/ nightsweats. HEENT: Denies headache/sore throat/hoarseness/difficulty swallowing. NECK: Denies neck pain/ stiffness/ swelling/ masses. LYMPH NODES: Denies enlargement/ swelling/ tenderness. CARDIOVASCULAR: Denies chest pain/ pressure/ heaviness/ tightness/ palpitations/racing heart/ irregular or skipping heart beats PULMONARY: Denies cough/ sob/ wheezing/ dyspnea/ orthopnea. GI: Normal appetite. Abdominal bloating/nausea/constipation alternating with diarrhea. Denies abdominal pain/ vomiting/ mucus or blood in stools. MUSCULOSKELETAL: Denies back/ muscle/ joint pain SKIN: Denies rash/ itching/ lesions. Denies changes to hair/ nails. ALLERGIES: No Known Allergies MEDICATIONS: Current Outpatient Medications Medication Sig Dispense Refill ??? escitalopram (LEXAPRO) 20 MG Tablet ??? Levonorgestrel (Aurora) 13.5 MG IUD by Intrauterine route. IUD ??? linaCLOtide (Linzess) 72 MCG Capsule Take 1 Cap by mouth every morning (before breakfast). 30 Cap 2 ??? ondansetron (ZOFRAN ODT) 4 MG TABLET DISPERSIBLE Take 1 Tab by mouth every 8 hours as needed for Nausea - 1st line. (Patient not taking: Reported on 04/13/2020) 30 Tab 2 ??? Tri-Sprintec 0.18/0.215/0.25 MG-35 MCG Tablet No current facility-administered medications for this visit. PMS/H: Past Medical History Positives Diagnosis Date ??? Abdominal pain ??? Anemia ??? Gastritis ??? Heart murmur 2018 just found, goes to doctor for this 01/08/19 ??? IBS (irritable bowel syndrome) Past Surgical History: Procedure Laterality Date ??? COLONOSCOPY 2016 [place] ??? COLONOSCOPY Left 12/27/2018 Procedure: COLONOSCOPY-HEMORRHOIDS; Surgeon: Scooby Cuellar MD; Location: [facility]; Service: Gastroenterology ??? TONSILLECTOMY SOCIAL: Social history reviewed and updated as appropriate. FAMILY HX: Family History Problem Relation Age of Onset ??? Chronic Obstructive Pulmonary Disease Mother ??? Hepatitis Mother B ??? Other-comment Father 50 adenocarcinoma head/neck ??? Cancer Paternal Aunt lung ??? Cancer Paternal Uncle lung ??? Cancer Paternal Grandmother lung VITAL SIGNS: Vitals: 04/13/20 1512 BP: 130/68 Pulse: 93 Resp: 18 Temp: 98.5 ??F (36.9 ??C) SpO2: 97% Weight: 185 lb 3.2 oz (84 kg) Height: 5' (1.524 m) GENERAL EXAM: GENERAL:Well developed, well nourished, obese, in no acute distress. AAO x3. Cooperative. HEENT:Normocephalic. PERRLA. Nonicteric. NECK:Supple/ non tender/ full ROM LYMPH NODES:No adenopathy. CARDIOVASCULAR:RRR/ S1S2/ No m/g/c/r. PULMONARY: Respirations easy and regular. Breath sounds clear bilaterally. No rhonchi/ rales/ wheezes. GI: Abdomen soft, nondistended. No tenderness, rebound, guarding or masses. No hepatosplenomegaly. Bowel sounds normoactive. MUSCULOSKELETAL: No CVA tenderness. Full ROM all extremities. No tenderness/ swelling/ crepitus. SKIN: General-warm, pink and dry. No rashes/ lesions. PSYCHIATRIC:Euthymic. Affect congruent with mood. Normal thought process. Medication changes/ treatment plan reviewed. Risks and benefits discussed. Expressed understanding. Patient Instructions Natural fibers: all bran/ raisin bran/ fiber one/ oats Fruits such as apples/ pears/ prunes and juices of same Bananas can cause constipation Add generic benefiber daily to help regulate your system, may use up to 3 times a day Probiotic-highest colony count you can afford to purchase on a routine basis May use MiraLax as directed Continue to work on weight loss- try eating several small meals a day consisting of lean protein and non- starchy vegetables (at least 3 x) and low sugar / high fiber fruits no more than twice Calorie Lee Fat and Carbohydrate Counter To continue to provide excellent patient care, you may receive a survey regarding your visit today.To help us serve you better, please complete and return. These surveys are completely anonymous. Gluten-Free Diet for Celiac Disease Celiac disease means that you are sensitive to a protein called gluten. Gluten is found in certain grains. When you??eat??gluten, your immune system causes harm to your small intestines. The treatment for celiac disease is to stay away from foods and products that contain gluten. You will need to do this for the rest of your life. Resist the temptation to ???cheat,?? because even a small amount of gluten can cause symptoms to return. And it can??harm your body. This sheet gives you the basics about a gluten-free diet. If you need help, a??registered dietitian can teach you what foods and other products have gluten and how to keep away from them. Always read labels! Many foods may contain gluten, even if you think they don't. Get into the habit of reading ingredient labels before you eat. Choosing foods The most common source of gluten is wheat flour (this includes white flour). Wheat flour is used to make many baked goods, including breads, pastas, cereals, pastries, and pizza dough.??Gluten is also found in many foods that you might not think would have it. You will need to read food labels tolook for gluten in everything you eat. But your diet does not need to be boring. Many foods are naturally gluten-free. And many foods commonly made with wheat flour now come in gluten-free forms.?? Foods to stay away from Foods you can eat Bread, cereals, pasta, pastries, couscous, or pizza dough made with wheat flour (including white flour, farina, farro, emmer, durum, melody, and semolina) Bread, cereals, pasta, pastries, or pizza dough made with rice flour, almond flour, beans, potatoes, and other gluten-free substitutes Foods containing rye, barley (including malt), spelt, kamut, triticale, samuels's yeast, and bulgur Foods containing corn, cassava, rice, amaranth, buckwheat, millet, quinoa, arrowroot, teff, soy, andtapioca Processed meats Fresh meats and seafood (beef, chicken, turkey, johnston, pork, fish, shellfish), beans, and tofu Some dairy products with additives Many plain dairy products Many sauces, gravies, dressings, and condiments, including traditional soy sauce Vinegar, oils, andgluten-free substitutes Some granola bars and energy bars Granola bars and energy bars labeled gluten-free Some beers and spirits Wine, and gluten-free beers and distilled spirits Some soups Gluten-free soups Fruits and vegetables that are fried or breaded Fresh fruits and vegetables Many packaged foods Packaged foods labeled gluten-free Oats (check with your healthcare provider) Gluten-free oats Communion wafers Gluten-free communion wafers If you are exposed to gluten by accident Staying gluten-free means always being aware. Even if you are very careful, mistakes can happen. The food you eat can't come into contact with gluten. Your meals must be made with utensils that have not touched foods that contain gluten. Shared knives, cutting boards, toasters, and storage containers are risks for gluten exposure. Shared condiments may have crumbs that contain gluten. At restaurants, parties, and other places where you eat food prepared by others, ask how the food was made. Gluten can also be found in some non-food items. Some medicines contain gluten. So do some vitamin supplements. Ask your pharmacist before taking a medicine or supplement. Also, some shampoos, lotions, toothpastes, makeup, lipsticks as well as lip gloss and lip balm, glues, soaps, and other products contain gluten. It can be possible to ingest some gluten when using these projects. This is called cross-contamination. For example, this can happen if you use a lotion that has gluten and then touch food you eat. Children's tg and similar products have gluten. Any adult or child with celiac diseaseshould wash their hands after handling these. Coping with gluten-free living Living gluten-free can be hard. But it can be done. While there are many gluten- free foods now thatyou can buy, it is still a big change for many people. You may be upset that you can't eat your favorite foods, eat freely at restaurants, parties, or over the holidays. Household members may also beupset by the strict controls over food. If you face problems like these, think about joining a carroll c disease support group. Support groups offer tips on how to make a gluten-free lifestyle easier onyou and the people you live with. You can find ways to involve the people in your household. There are many ways to make gluten-free group meals. See ???More Resources?? below for help in finding a group. Bring safe foods that you enjoy to parties and school or work events. This can help you avoid the urge to grab something you shouldn???t eat. Following up with your healthcare provider You should see your healthcare provider at least once a year for a checkup. A simple blood test canshow if your celiac disease is under control. If you are having symptoms, your healthcare provider can help you find sources of gluten you may have missed. More resources To learn more about managing celiac disease, go to: ?? Celiac Disease Foundation: www.celiac.org ?? Academy of Nutrition and Dietetics: www.eatright.org ?? National Digestive Diseases Information Clearinghouse: www.digestive.niddk.nih.gov Aj last reviewed this educational content on 12/22/2016 ?? 4819-1353 The [employer]. [address] [place] [address]. All rights reserved. This information is not intended as a substitute for professional medical care. Always follow your healthcare professional's instructions. Return in about 3 months (around 07/13/2020) for IBS . documented in this encounter Plan of Treatment Upcoming Encounters Date Type Department Care Team (Late st Contact Info) Description 08/19/2024 8:45 AM COMMUNITY BOARD MEMBER Office Visit [facility] - [facility] Medicine [facility] [address] [place] [address] Bessy Alcaraz APRN, CHEMICAL COMPOUNDER [address] [phone] Scheduled Orders Name Type Priority Associated Diagnoses Orde r Schedule GASTRO PROCEDURE Procedures Routine Nausea Expected: 10/12/2020 (Approximate), Expires: 04/13/2021 documented as of this encounter Visit Diagnoses Diagnosis Irritable bowel syndrome with constipation- Primary Irritable bowel syndrome Nausea Nausea alone documented in this encounter Care Teams Director Of Global Marketing Relationship Specialty Start Date End Date Nicolas Blue MD PCP - General Internal Medicine 12/20/18 10/27/20 documented as of this encounter
--- OUTSIDE RECORDS SUMMARY | 2024-07-28 05:12 | XMS_ITS | Encounter Summary ---
Author Organization [facility] [employer] Care Team Providers Care Product Safety Associate Name Role Phone Tristian Bella MD Primary Care Provider [phone] Bessy Alcaraz APRN, ARAM Unavailable + [phone] Encounter Details Date Type Department Care Team (Latest Contact Info) Description 10/28/2020 Travel Social History Tobacco Use Types Packs/Day [...] have Coronavirus / COVID-19? No / Unsure 10/28/2020 12:17 PM CDT documented as of this encounter Plan of Treatment Upcoming Encounters Date Type Department Care Team (Late st Contact Info) Description 08/19/2024 8:45 AM WIRING INSPECTOR Office Visit [facility] - Family Medicine - [place] [address] [place] [address] Bessy Alcaraz APRN, POLICY WRITER [address] [address] documented as of this encounter Visit Diagnoses Not on filedocumented in this encounter Care Teams Product Safety Associate Relationship Specialty Start Date End Date Tristian Bella MD [address] [address] PCP - General Family Medicine 10/28/20 10/29/20 Bessy Alcaraz APRN, POLICY WRITER [address] [facility] [place] [address] Nurse Practitioner Advanced Practice Nurse 10/28/20 documented as of this encounter
--- OUTSIDE RECORDS SUMMARY | 2024-07-28 05:12 | XMS_ITS | Encounter Summary ---
Author Organization [facility] Address [address] [place] [address] Phone Care Team Providers Care Overhead Foreman Name Role Phone Nicolas Blue MD Primary Care Provider [phone] Reason for Visit * Reason Comments Ear Fullness tympanic perf Encounter Details Date Type Department Care Team (Late st Contact Info) Description 07/29/2019 9:45 AM MANAGER ASSEMBLY Office Visit [facility] [address] [address] Jonny Morris D, DO Tympanic membrane perforation, right (Primary Dx) Discharge Disposition: Discharged to home [...] Sign Reading Time Taken Comments Blood Pressure - - Pulse 74 07/29/2019 9:53 AM MANAGER ASSEMBLY Temperature 36.7 ??C (98.1 ??F) 07/29/2019 9:53 AM CS T Respiratory Rate 16 07/29/2019 9:53 AM MANAGER ASSEMBLY Oxygen Saturation 98% 07/29/2019 9:53 AM MANAGER ASSEMBLY Inhaled Oxygen Concentration - - Weight 75.8 kg (167 lb) 07/29/2019 9:53 AM MANAGER ASSEMBLY Height 152.4 cm (5') 07/29/2019 9:53 AM MANAGER ASSEMBLY Body Mass Index 32.61 07/29/2019 9:53 AM MANAGER ASSEMBLY documented in this encounter Progress Notes * Jonny Morris Joanna, DO - 07/29/2019 9:45 AM CST ENT FOLLOW UP NOTE HPI, ROS, PHYSICAL EXAM Pulse 74 Temp 98.1 ??F (36.7 ??C) Resp 16 Ht 5' (1.524 m) Wt 167 lb (75.8 kg) SpO2 98% BMI 32.61 kg/m?? Cee is 23-year-old white female with chief complaint, in to have me look at that right ear. The hole has healed up completely. It is still monomeric but it has healed, and there is no evidence of any problems there. So, at this point, I will see her back as needed. IJN: [id number] MOUTH: Normal. EYES: Normal. NECK: Normal. HEART: Regular rate and rhythm. No murmurs. LUNGS: Clear to auscultation. ABDOMEN: Soft and nondistended. Outpatient Medications Prior to Visit Medication Sig ??? LINZESS 145 MCG Capsule Take 1 Cap by mouth every morning (before breakfast). ??? omeprazole (PRILOSEC) 20 MG CAPSULE DELAYED RELEASE Take 20 mg by mouth. ??? ondansetron (ZOFRAN ODT) 4 MG TABLET DISPERSIBLE Take 1 Tab by mouth every 8 hours as needed for Nausea - 1st line. ??? phenazopyridine (PYRIDIUM) 200 MG Tablet TAKE 1 TABLET BY MOUTH EVERY 8 HOURS ??? raNITIdine (ZANTAC) 300 MG Tablet Take 1 Tab by mouth 2 times daily. No facility-administered medications prior to visit. No Known Allergies Past Medical History Positives Diagnosis Date ??? Abdominal pain ??? Gastritis ??? Heart murmur 2019 just found, goes to doctor for this 01/08/19 ??? IBS (irritable bowel syndrome) Past Surgical History: Procedure Laterality Date ??? COLONOSCOPY 2016 [place] ??? COLONOSCOPY Left 12/27/2018 Procedure: COLONOSCOPY-HEMORRHOIDS; Surgeon: Scooby Cuellar MD; Location: [facility]; Service: Gastroenterology ??? TONSILLECTOMY reports that she has never smoked. She has never used smokeless tobacco. She reports current alcohol use. She reports that she does not use drugs. Family History Problem Relation Age of Onset ??? Chronic Obstructive Pulmonary Disease Mother ??? Hepatitis Mother B ??? Other-comment Father 50 adenocarcinoma head/neck ??? Cancer Paternal Aunt lung ??? Cancer Paternal Uncle lung ??? Cancer Paternal Grandmother lung Assessment/Plan Cee was seen today for ear fullness. Diagnoses and all orders for this visit: Tympanic membrane perforation, right Other orders - phenazopyridine (PYRIDIUM) 200 MG Tablet; TAKE 1 TABLET BY MOUTH EVERY 8 HOURS Follow-up Information Return if symptoms worsen or fail to improve. LOS Today OFFICE/OUTPT VISIT,JEET GONZALEZ II Documentation for this visit on 07/29/19 was completed using a template. I have seen and examined thepatient. Everything documented was personally performed at this visit with the necessary additions,deletions and changes made as appropriate. GER ASSEMBLY GER ASSEMBLY documented in this encounter Plan of Treatment Upcoming Encounters Date Type Department Care Team (Late st Contact Info) Description 08/19/2024 8:45 AM MANAGER ASSEMBLY Office Visit [facility] - Family Medicine [facility] [address] [place] [address] Bessy Alcaraz APRN, CAN TENDER [address] [address] documented as of this encounter Visit Diagnoses Diagnosis Tympanic membrane perforation, right- Primary documented in this encounter Care Teams Overhead Foreman Relationship Specialty Start Date End Date Nicolas Blue MD PCP - General Internal Medicine 12/20/18 10/27/20 documented as of this encounter
--- OUTSIDE RECORDS SUMMARY | 2024-07-28 05:12 | XMS_ITS | Encounter Summary ---
Author Organization [facility] Address [address] [place] [address] Phone Care Team Providers Care Air Quality Engineer Name Role Phone Bessy Alcaraz APRN, CNP Unavailable [phone] Bessy Alcaraz APRN, CNP Primary Care Provid er Reason for Referral * Consult, Test & Initiate Treatment (Routine) - Closed Specialty Diagnoses / Procedures Referred By Contjanis abrams Referred To Contact Diagnoses Anxiety and depression Bessy Alcaraz APRN, CNP #[address] [address] Phone: tel: fax: Provider, Not On File [place] Referral ID Status Reason Start Date Expiration Date Visits Re quested Visits Authorized [id number] Closed 11/23/2020 1 1 Scheduling Instructions Cee is being referred to other specialist in patient's insurance network for anxiety and depression. See below for Cee's current medications, allergies [...] (before breakfast)., Disp: 30 Cap, Rfl: 2 No current facility-administered medications for this visit. ALLERGIES: No Known Allergies PROBLEM LIST: There is no problem list on file for this patient. * Consult, Test & Initiate Treatment (Less Than 4 Weeks) - Closed Specialty Diagnoses / Procedures Referred By Contac t Referred To Contact Endocrinology Diagnoses Fabian's disease Bessy Alcaraz APRN, CNP #[address] [address] Phone: tel: fax: [facility] - [facility]ology - [place] [address] [place] [address] Phone: tel: fax: Referral ID Status Reason Start Date Expiration Date Visits Re quested Visits Authorized [id number] Closed 11/23/2020 1 1 Scheduling Instructions Cee is being referred for thyroid abnormalities, lack of menses. Please contact patient for scheduling questions or [...] (before breakfast)., Disp: 30 Cap, Rfl: 2 No current facility-administered medications for this visit. ALLERGIES: No Known Allergies PROBLEM LIST: There is no problem list on file for this patient. * Radiology Services (Routine) - Closed Specialty Diagnoses / Procedures Referred By Contac t Referred To Contact Radiology Diagnoses Fabian's disease Anxiety and depression BMI 36.0-36.9,adult Procedures EKG 12 LEAD Bessy Alcaraz APRN, ARAM #[address] [address] Phone: tel: fax: Referral ID Status Reason Start Date Expiration Date Visits Re quested Visits Authorized [id number] Closed 11/23/2020 1 1 Reason for Visit * Reason Comments Follow-up lab results Encounter Details Date Type Department Care Team (Late st Contact Info) Description 11/23/2020 1:15 PM CDT Office Visit [facility] [address] [place] [address] Bessy Alcaraz APRN, PERSONNEL RESEARCH PSYCHOLOGIST #[address] [address] Fabian's disease (Primary Dx); Anxiety and depression; BMI 36.0-36.9,adult Discharge Disposition: Discharged to home or Selfcare [...] Sign Reading Time Taken Comments Blood Pressure 124/68 11/23/2020 12:57 PM CDT Pulse 57 11/23/2020 12:57 PM CDT Temperature 36.5 ??C (97.7 ??F) 11/23/2020 12:57 PM C DT Respiratory Rate 14 11/23/2020 12:57 PM CDT Oxygen Saturation 99% 11/23/2020 12:57 PM CDT Inhaled Oxygen Concentration - - Weight 84.8 kg (187 lb) 11/23/2020 12:57 PM CDT Height 152.4 cm (5') 11/23/2020 12:57 PM CDT Body Mass Index 36.52 11/23/2020 12:57 PM CDT documented in this encounter Progress Notes * Shona Cooper CMA - 11/23/2020 1:15 PM CDT Cee Aldridge is a 24 y.o. female with current BMI: Body mass index is 36.52 kg/m??. Interventions discussed including: encourage daily physical activity and well- balanced diet. * Shona Cooper CMA - 11/23/2020 1:15 PM CDT Cee Aldridge, 24 y.o., female is here for Follow-up (lab results) Medication Refills: Patient reports/denies need for medication refills. Orders Pended: no Requested Prescriptions No prescriptions requested or ordered in this encounter Home Medications Medication Sig Start Date End Date Taking? Authorizing Provider acetaminophen (TYLENOL) 325 MG Tablet Take 325 mg by mouth every 4 hours as needed. Yes ProviderRaymundo MD ibuprofen (MOTRIN) 200 MG Tablet Take 200 mg by mouth every 8 hours as needed. Yes Raymundo Luong MD levonorgestrel (Kyleena) 19.5 MG IUD intrauterine device (IUD) 09/21/17 Yes Raymundo Luong MD linaCLOtide (Linzess) 72 MCG Capsule Take 1 Cap by mouth every morning (before breakfast). 04/13/20 Yes Erinn Motnelongo PAC There are no discontinued medications. I have reviewed the home medication list with the patient and have reconciled discrepancies. The list is accurate to the best of my knowledge. Smoking Status: Social History Tobacco Use ??? Smoking status: Never Smoker ??? Smokeless tobacco: Never Used Substance Use Topics ??? Alcohol use: Yes Comment: Rarely ??? Drug use: Never Smoking Cessation Counseling Given: no Health Care Maintenance: Health Maintenance Due Topic Date Due ??? DTaP/Tdap/Td Immunization (4 - Tdap) 12/12/2003 ??? Meningococcal B Immunization (1 of 2 - Risk Bexsero 2-dose series) Never done ??? SARS-COV-2 Immunization (1) Never done ??? Pap Smear Never done Orders Pended: no The following BPA's have been addressed with the patient today: BMI, Pap and Nutrition * Bessy Alcaraz APN, ARAM - 11/23/2020 1:15 PM CDT [facility] [address] [facility] [address] Dept: [phone] Dept Loc: [phone] Loc Patient: Cee Aldridge : 1995 Sex: female Subjective Subjective: HPI: Cee Aldridge presents for Follow-up (lab results) . Patient presents today to discuss her lab results. Patient had multiple labs drawn by her previous supervisor waterworks no requested that I review them. 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 Recommend that she continue thyroid complex supplement and avoiding inflammatory foods. Patient would also like to discuss weight loss. She has been working on her diet and exercising since July with minimal improvement. Patient does have BMI of 36. Denies being on medication in the past for weight loss. She is interested in this. She is also requesting a referral to a psychiatrist. Reports she suffers from severe depression andanxiety. She currently sees a counselor and nurse practitioner at [facility] for the past 2 years. She reports that she is going to be going way to school and her dogs her emotional support animal however she needs a letter from a psychiatrist in order to have this for her new landlord. Past Medical History Positives Diagnosis Date ??? [...] History: Procedure Laterality Date ??? COLONOSCOPY 2016 [place] ??? COLONOSCOPY Left 12/27/2018 Procedure: COLONOSCOPY-HEMORRHOIDS; Surgeon: Scooby Cuellar MD; Location: [facility] GI [facility]; Service: Gastroenterology ??? ORAL SURGERY PROCEDURE Abcess tooth removed and wisdom teeth ??? TONSILLECTOMY Review of Systems Constitutional: Positive for fatigue. Negative for activity change, appetite change, diaphoresis and fever. Respiratory: Negative for cough, chest tightness, shortness of breath and wheezing. Endocrine: Positive for cold intolerance. Negative for polydipsia, polyphagia and polyuria. Hair loss, hair breaking, menses irregular, difficulty losing weight. Genitourinary: Positive for menstrual problem. Negative for dyspareunia, pelvic pain and urgency. Objective Objective: BP 124/68 Pulse 57 Temp 97.7 ??F (36.5 ??C) (Temporal) Resp 14 Ht 5' (1.524 m) Wt 187 lb (84.8 kg) LMP 03/18/2020 (LMP Unknown) SpO2 99% BMI 36.52 kg/m?? Physical Exam Vitals and nursing note reviewed. Constitutional: General: She is not in acute distress. Appearance: Normal appearance. She is well-developed. She is not diaphoretic. HENT: Head: Normocephalic and atraumatic. Right Ear: External ear normal. Left Ear: External ear normal. Mouth/Throat: Mouth: Mucous membranes are moist. [...] sounds: Normal breath sounds. No stridor. No wheezing or rales. Musculoskeletal: Cervical back: Normal range of motion and neck supple. Right lower leg: No edema. Left lower [...] normal. Judgment: Judgment normal. Vital Signs Vitals: 11/23/20 1257 BP: 124/68 Pulse: 57 Resp: 14 Temp: 97.7 ??F (36.5 ??C) TempSrc: Temporal SpO2: 99% Weight: 187 lb (84.8 kg) Height: 5' (1.524 m) Lab Results No visits with results within 1 Month(s) from this visit. Latest known visit with results is: Office Visit on 08/12/2019 Component Date Value Ref Range Status ??? SPECIFIC GRAVITY 08/12/2019 1.020 1.003 - 1.030 Final ??? URINE PH 08/12/2019 5.0 5.0 - 9.0 Final ??? UR, LEUKOCYTES 08/12/2019 Negative Negative Bill/uL Final ??? UR, NITRITE 08/12/2019 Negative Negative Final ??? UR, PROTEIN 08/12/2019 Negative Negative mg/dL Final ??? UR, GLUCOSE 08/12/2019 Normal Normal mg/dL Final ??? UR, KETONE 08/12/2019 Negative Negative mg/dL Final ??? UR, UROBILINOGEN 08/12/2019 Normal Normal mg/dL Final ??? UR, BILIRUBIN 08/12/2019 Negative Negative mg/dL Final ??? UR. BLOOD 08/12/2019 Negative Negative Final ??? URINALYSIS COLOR 08/12/2019 Yellow Final ??? URINALYSIS CLARITY 08/12/2019 Clear Final ??? CULTURE RESULTS 08/12/2019 MIXED GROWTH OF 3 OR MORE ORGANISMS, PROBABLE COLLECTION CONTAMINATION, SUGGEST REPEAT URINE CULTURE. Final No results found for: WBC, HEMOGLOBIN, HEMATOCRIT, PLATELETCNT, CHOLESTEROL, TRIGLYCRIDES, HDLCHOLESTE, LDL, PSA, PSASCREEN, INR, HGBA1C, MACRRAND, XYTIHRQU72, FOLAT, ESR, VIT12 No results found for: SODIUM, POTASSIUM, CHLORIDE, CO2VEN, ANIONGAP, GLUCOSE, BUN, CREATININE, BCRATIO8, TOTALPROTEIN, ALBUMIN, AGRATIO, CALCIUM, TBIL, SGOTAST, SGPTALT, ALKALINEPHO, GFRNA, GFRA, VTMD, TSH, FREET3, T4FREE Please see results review for comprehensive lab results. Medical Decision Making: Assessment & Plan Diagnoses and all orders for this visit: Fabian's disease - EKG 12 LEAD; Future - ENDOCRINOLOGY REFERRAL; Future Anxiety and depression - EKG 12 LEAD; Future - EXTERNAL PSYCHIATRY REFERRAL; Future BMI 36.0-36.9,adult - EKG 12 LEAD; Future - Phentermine HCl 15 MG Capsule; Take 1 Capsule by mouth daily for 30 days. Reviewed lab work from patient's previous supervisor waterworks that she had faxed to us. Discussed that she does likely have Fabian's thyroiditis. Discussed diet and taking medications and supplements as prescribed by previous supervisor waterworks. She is interested in a 2nd opinion so will refer her to a different supervisor waterworks. Patient is also interested in treatment for her weight loss. She has never been on phentermine before. Discussed side effects. EKG normal. Will have her return in 4 weeks for weight recheck. Patient also requesting referral to psychiatrist in order to discuss the need to for emotional support and will as she is going to be moving out of town in 4 months for school. She reports history ofanxiety and depression. Denies suicidal or homicidal ideation. Referral placed. Return in about 4 weeks (around 12/21/2020) for Phentermine follow up. Review of diagnostic tests: CMP, Thyroid lab work, CBC from Slide Fastener Chain Assembler reviewed. documented in this encounter Plan of Treatment Upcoming Encounters Date Type Department Care Team (Late st Contact Info) Description 08/19/2024 8:45 AM ENGINEERING TEST SPECIALIST Office Visit [facility] [place] [address] [place] [address] Bessy Alcaraz APRN, CNP #[address] [address] Scheduled Referrals Name Type Priority Associated Diagnoses Order Schedule ENDOCRINOLOGY REFERRAL Outpatient Referral Less Than 4 weeks Fabian's disease Expected: 11/23/2020, Expires: 11/23/2021 EXTERNAL PSYCHIATRY REFERRAL Outpatient Referral Routine Anxiety and depression Expected: 11/22/2021, Expires: 05/25/2022 documented as of this encounter Results * EKG 12 LEAD (11/23/2020) Bessy Alcaraz APRN, CNP IMG ECG ORDERABLES F inal Result EXTERNAL EKG documented in this encounter Visit Diagnoses Diagnosis Fabian's disease- Primary Chronic lymphocytic thyroiditis Anxiety and depression Dysthymic disorder BMI 36.0-36.9,adult Body Mass Index 36.0-36.9, adult documented in this encounter Additional Health Concerns Assessment Noted Time PHQ-9 Depression Total Score: 12 021 3:00 PM CDT documented as of this encounter Care Teams Air Quality Engineer Relationship Specialty Start Date End Date Bessy Alcaraz APRN, CNP #[address] [address] PCP - General Advanced Practice Nurse 10/30/20 Bessy Alcaraz APRN, CNP #[address] [address] Nurse Practitioner Advanced Practice Nurse 10/28/20 documented as of this encounter
--- OUTSIDE RECORDS SUMMARY | 2024-07-28 05:12 | XMS_ITS | Encounter Summary ---
Author Organization [facility] Address [address] [place] [address] Phone Care Team Providers Care Unit Secretary Name Role Phone Nicolas Blue MD Primary Care Provider Reason for Visit * Reason Comments Urinary Incontinence Urinary Frequency * Consult, Test & Initiate Treatment (Routine) - Closed Specialty Diagnoses / Procedures Referred By Contac t Referred To Contact Diagnoses Urinary incontinence Nicolas Blue MD Phone: tel: fax: Jareth Ruiz MD Phone: tel: fax: Referral ID Status Reason Start Date Expiration Date Visits Re quested Visits Authorized [id number] Closed 1 1 Encounter Details Date Type Department Care Team (Late st Contact Info) Description 08/12/2019 10:45 AM HOLLOCK MAKER Office Visit [facility] [address] [place] [address] Jareth Ruiz MD [address] [facility] [address] [place] [address] OAB (overactive bladder) (Primary Dx) Discharge Disposition: Discharged to home [...] Sign Reading Time Taken Comments Blood Pressure 118/80 08/12/2019 11:10 AM HOLLOCK MAKER Pulse 58 08/12/2019 11:10 AM HOLLOCK MAKER Temperature 36.8 ??C (98.3 ??F) 08/12/2019 11:[address] Respiratory Rate 20 08/12/2019 11:10 AM HOLLOCK MAKER Oxygen Saturation 98% 08/12/2019 11:10 AM HOLLOCK MAKER Inhaled Oxygen Concentration - - Weight 78.2 kg (172 lb 6.4 oz) 08/12/2019 11:10 AM HOLLOCK MAKER Height 165.1 cm (5' 5 ) 08/12/2019 11:10 AM HOLLOCK MAKER Body Mass Index 28.69 08/12/2019 11:10 AM HOLLOCK MAKER documented in this encounter Progress Notes * Jareth Ruiz MD - 08/12/2019 10:45 AM CST Subjective: HPI Chief complaint: Urinary incontinence. Patient is a 21-year-old female who presents for evaluation of urinary incontinence. She states that she has never had any pregnancies delivered a child. She states she has small urinary incontinencewith coughing and sneezing. Mostly though she complains of increased urgency and urinary frequency.Urgency symptoms social urinary incontinence. She has no dysuria, no abdominal pain and no hematuria. Patient does not smoke. Patient states that she has was started oxybutynin 5 mg b.i.d. and notes that she has improvement in her symptoms. She does however complain of side effects of dry mouth andconstipation. Presents for evaluation. Review of Systems All other systems reviewed and are negative. No Known Allergies Current Outpatient Medications Medication Sig Dispense Refill ??? LINZESS 145 MCG Capsule Take 1 Cap by mouth every morning (before breakfast). 90 Cap 3 ??? omeprazole (PRILOSEC) 20 MG CAPSULE DELAYED RELEASE Take 20 mg by mouth. ??? ondansetron (ZOFRAN ODT) 4 MG TABLET DISPERSIBLE Take 1 Tab by mouth every 8 hours as needed for Nausea - 1st line. 30 Tab 2 ??? oxybutynin (DITROPAN-XL) 5 MG TABLET SR 24 HR Take 1 Tab by mouth daily. 30 Tab 0 No current facility-administered medications for this visit. Past Medical History Positives Diagnosis Date ??? Abdominal pain ??? Gastritis ??? Heart murmur 2019 just found, goes to doctor for this 01/08/19 ??? IBS (irritable bowel syndrome) Past Surgical History: Procedure Laterality Date ??? COLONOSCOPY 2017 [place] ??? COLONOSCOPY Left 12/27/2018 Procedure: COLONOSCOPY-HEMORRHOIDS; Surgeon: Scooby Cuellar MD; Location: [facility]; Service: Gastroenterology ??? TONSILLECTOMY Social History Socioeconomic History ??? Marital status: Single Spouse name: Not on file ??? Number of children: Not on file ??? Years of education: Not on file ??? Highest education level: Not on file Occupational History ??? Not on file Social Needs ??? Financial resource strain: Not on file ??? Food insecurity: Worry: Not on file Inability: Not on file ??? Transportation needs: Medical: Not on file Non-medical: Not on file Tobacco Use ??? Smoking status: Never Smoker ??? Smokeless tobacco: Never Used Substance and Sexual Activity ??? Alcohol use: Yes Comment: rarely ??? Drug use: Never ??? Sexual activity: Not on file Lifestyle ??? Physical activity: Days per week: Not on file Minutes per session: Not on file ??? Stress: Not on file Relationships ??? Social connections: Talks on phone: Not on file Gets together: Not on file Attends baptism service: Not on file Active member of club or organization: Not on file Attends meetings of clubs or organizations: Not on file Relationship status: Not on file ??? Intimate partner violence: Fear of current or ex partner: Not on file Emotionally abused: Not on file Physically abused: Not on file Forced sexual activity: Not on file Other Topics Concern ??? Not on file Social History Narrative ??? Not on file Family History Problem Relation Age of Onset ??? Chronic Obstructive Pulmonary Disease Mother ??? Hepatitis Mother B ??? Other-comment Father 50 adenocarcinoma head/neck ??? Cancer Paternal Aunt lung ??? Cancer Paternal Uncle lung ??? Cancer Paternal Grandmother lung h Objective: Physical Exam Vitals signs reviewed. Constitutional: Appearance: She is well-developed. HENT: Head: Normocephalic and atraumatic. Eyes: Conjunctiva/sclera: Conjunctivae normal. Pupils: Pupils are equal, round, and reactive to light. Neck: Musculoskeletal: Normal range of motion and neck supple. Cardiovascular: Rate and Rhythm: Normal rate and regular rhythm. Pulmonary: Effort: Pulmonary effort is normal. No respiratory distress. Abdominal: General: Bowel sounds are normal. There is no distension. Palpations: Abdomen is soft. Tenderness: There is no tenderness. Musculoskeletal: Normal range of motion. Skin: General: Skin is warm and dry. Neurological: Mental Status: She is alert and oriented to person, place, and time. Psychiatric: Behavior: Behavior normal. Results for orders placed or performed in visit on 08/12/19 POCT UA AUTOMATED W/O MICRO Result Value Ref Range SPECIFIC GRAVITY 1.020 1.003 - 1.030 URINE PH 5.0 5.0 - 9.0 UR, LEUKOCYTES Negative Negative Bill/uL UR, NITRITE Negative Negative UR, PROTEIN Negative Negative mg/dL UR, GLUCOSE Normal Normal mg/dL UR, KETONE Negative Negative mg/dL UR, UROBILINOGEN Normal Normal mg/dL UR, BILIRUBIN Negative Negative mg/dL UR. BLOOD Negative Negative URINALYSIS COLOR Yellow URINALYSIS CLARITY Clear Assessment and Plan Assessment 1. OAB (overactive bladder) Changed medication for side effects FU in 3 weeks - oxybutynin (DITROPAN-XL) 5 MG TABLET SR 24 HR; Take 1 Tab by mouth daily. Dispense: 30 Tab; Refill: 0 - CULTURE, URINE; Future - CULTURE, URINE OCK MAKER documented in this encounter Plan of Treatment Upcoming Encounters Date Type Department Care Team (Late st Contact Info) Description 08/19/2024 8:45 AM HOLLOCK MAKER Office Visit [facility] - [facility] Medicine [facility] [address] [place] [phone] Bessy Alcaraz APRN, DRUGLESS PHYSICIAN [address] [phone] Scheduled Orders Name Type Priority Associated Diagnoses Order Schedule POCT UA AUTOMATED W/O MICRO Point of Care Testing (manual) Routine OAB (overactive bladder) 12 Occurrences starting 08/12/2019 until 08/11/2020, 1 completed HARINDER,POST-VOID RES,US,NON-IMAGING Procedures Routine OAB (overactive bladder) 12 Occurrences starting 08/12/2019 until 08/11/2020 documented as of this encounter Procedures Procedure Name Priority Date/Time Associated Diagnosis Comments CULTURE, URINE Routine 08/12/2019 12:20 PM HOLLOCK MAKER OAB (overactive bladder) POCT UA AUTOMATED W/O MICRO Routine 08/12/2019 11:41 AM HOLLOCK MAKER OAB (overactive bladder) documented in this encounter Results * CULTURE, URINE (08/12/2019 12:20 PM HOLLOCK MAKER) Pathologist [facility] CULTURE RESULTS MIXED GROWTH OF 3 OR MORE ORGANISMS, PROBABLE COLLECTION CONTAMINATION, SUGGEST REPEAT URINE CULTURE. 08/13/2019 2:23 PM HOLLOCK MAKER [facility] Culture of specimen by commercial kit (procedure) URINE SPECIMEN COLLECTION, CLEAN CATCH / Unknown Non-Phlebotomy Collection / Unknown 08/12/2019 12:20 PM HOLLOCK MAKER 08/12/2019 12:20 PM HOLLOCK MAKER Jareth Ruiz MD MICROBIOLOGY - GENERAL ORDE REENA Final Result [facility] [address] [place] [address], * POCT UA AUTOMATED W/O MICRO (08/12/2019 11:41 AM HOLLOCK MAKER) SPECIFIC GRAVITY 1.020 1.003 - 1.030 URINE PH 5.0 5.0 - 9.0 UR, LEUKOCYTES Negative Negative Bill/uL UR, NITRITE Negative Negative UR, PROTEIN Negative Negative mg/dL UR, GLUCOSE Normal Normal mg/dL UR, KETONE Negative Negative mg/dL UR, UROBILINOGEN Normal Normal mg/dL UR, BILIRUBIN Negative Negative mg/dL UR. BLOOD Negative Negative URINALYSIS COLOR Yellow URINALYSIS CLARITY Clear Urine specimen (specimen) 08/12/2019 11:41 AM HOLLOCK MAKER Jareth Ruiz MD POINT OF CARE TESTING (JOSLYN AL) Final Result documented in this encounter Visit Diagnoses Diagnosis OAB (overactive bladder)- Primary Hypertonicity of bladder documented in this encounter Care Teams Unit Secretary Relationship Specialty Start Date End Date Nicolas Blue MD PCP - General Internal Medicine 12/20/18 10/27/20 documented as of this encounter
--- OUTSIDE RECORDS SUMMARY | 2024-07-28 05:12 | XMS_ITS | Encounter Summary ---
Author Organization [facility] Address [address] [place] [address] Phone Care Team Providers Care Industrial Conveyor Belt Repairer Name Role Phone Bessy Alcaraz APRN, CNP Unavailable + [phone] Bessy Alcaraz APRN, CNP Primary Care Provid er Reason for Visit * Reason Comments Preventive Care Thyroid Problem Encounter Details Date Type Department Care Team (Late st Contact Info) Description 10/30/2020 3:45 PM CDT Office Visit [facility] - [facility] - [place] [address] [place] [address] Bessy Alcaraz APRN, CNP [address] [address] Thyroid function study abnormality (Primary Dx) Discharge Disposition: Discharged to home [...] Sign Reading Time Taken Comments Blood Pressure 124/66 10/30/2020 3:57 PM CDT Pulse 62 10/30/2020 3:57 PM CDT Temperature 36.7 ??C (98 ??F) 10/30/2020 3:57 PM CDT Respiratory Rate 16 10/30/2020 3:57 PM CDT Oxygen Saturation 98% 10/30/2020 3:57 PM CDT Inhaled Oxygen Concentration - - Weight 87.1 kg (192 lb) 10/30/2020 3:57 PM CDT Height 152.4 cm (5') 10/30/2020 3:57 PM CDT Body Mass Index 37.5 10/30/2020 3:57 PM CDT documented in this encounter Progress Notes * Jose C Hollingsworth, SLOT ATTENDANT - 10/30/2020 3:45 PM CDT Cee Mera Aldridge, 24 y.o., female is here for Follow-up Medication Refills: Patient reports/denies need for medication refills. Orders Pended: no Requested Prescriptions No prescriptions requested or ordered in this encounter Home Medications Medication Sig Start Date End Date Taking? Authorizing Provider escitalopram (LEXAPRO) 20 MG Tablet every morning. 04/06/20 ProviderRaymundo MD Levonorgestrel (Aurora) 13.5 MG IUD by Intrauterine route. IUD ProviderRaymundo MD linaCLOtide (Linzess) 72 MCG Capsule Take 1 Cap by mouth every morning (before breakfast). 04/13/20 Erinn Montelongo Brittaney, PAC ondansetron (ZOFRAN ODT) 4 MG TABLET DISPERSIBLE Take 1 Tab by mouth every 8 hours as needed for Nausea - 1st line. Patient not taking: Reported on 04/13/2020 03/29/19 Coty Calloway, CITY SURVEYOR, PRESCHOOL DISABILITY TEACHER Tri-Sprintec 0.18/0.215/0.25 MG-35 MCG Tablet every evening. 04/06/20 ProviderRaymundo MD There are no discontinued medications. I have reviewed the home medication list with the patient and have reconciled discrepancies. The list is accurate to the best of my knowledge. Smoking Status: Social History Tobacco Use ??? Smoking status: Never Smoker ??? Smokeless tobacco: Never Used Substance Use Topics ??? Alcohol use: Yes Comment: rarely ??? Drug use: Never Smoking Cessation Counseling Given: no Health Care Maintenance: Health Maintenance Due Topic Date Due ??? DTaP/Tdap/Td Immunization (4 - Tdap) 12/12/2003 ??? Meningococcal B Immunization (1 of 2 - Risk Bexsero 2-dose series) Never done ??? SARS-COV-2 Immunization (1) Never done ??? Pap Smear Never done Orders Pended: no The following BPA's have been addressed with the patient today: Patient presents today to establish care, and discuss her thyroid levels. * Bessy Alcaraz APN, ARAM - 10/30/2020 3:45 PM CDT [facility] [facility] [address] Dept: [phone] Dept Loc: [phone] Loc Patient: Cee Aldridge : 1995 Sex: female Subjective Subjective: HPI: Cee Aldridge presents for Preventive Care and Thyroid Problem Patient presents today for establishment of care and follow-up for thyroid issue. Patient was previously seeing Dr Chan: [facility] and route delivery driver, Cee Hutson. She reports that she also sees a creative project manager and is on Linzess for chronic constipation, palletizer,Dr Caba. She has also seen a dentist in the last year. Has not seen fortune cookie maker in several years. 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 She reports that she has been battling weight issues, fatigue, hair breaking/hair loss, cold intolerance, winded on exertion, and craving ice. She reports she has not had a menstrual cycle in the past 3 years and has occasional spotting. She reports that she was told that she was points away from being diabetic, anemic, and then the thyroid issues previously mentioned. She was instructed to start complex thyroid vitamins and metformin. She did not start either of these. Patient is currently engaged. She has no children. She has a dog/fluid healer. 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 Review of Systems Constitutional: Negative for chills, fatigue, fever and unexpected weight change. HENT: Negative for congestion, ear pain, facial swelling, hearing loss, sinus pressure and sore throat. Eyes: Negative for pain and redness. Respiratory: Positive for shortness of breath (on exertion ). Negative for cough, chest tightness and wheezing. Cardiovascular: Negative for chest pain and palpitations. Gastrointestinal: Negative for abdominal pain, blood in stool, constipation, diarrhea and nausea. Dark tarry stools Endocrine: Positive for cold intolerance. Negative for heat intolerance, polydipsia, polyphagia andpolyuria. Hair loss/breaking, difficulty losing weight, Genitourinary: Positive for menstrual problem (spotting only for three years). Negative for dysuria, flank pain and urgency. Musculoskeletal: Negative for arthralgias, gait problem and myalgias. Skin: Negative for rash and wound. Neurological: Negative for dizziness, syncope, weakness and headaches. Psychiatric/Behavioral: Negative for agitation, confusion, decreased concentration, dysphoric mood,hallucinations, self-injury and sleep disturbance. The patient is not nervous/anxious. Objective Objective: BP 124/66 (BP Location: Right Arm, BP Position: Sitting, BP Cuff Size: Regular) Pulse 62 Temp 98 ??F (36.7 ??C) (Temporal) Resp 16 Ht 5' (1.524 m) Wt 192 lb (87.1 kg) LMP 03/18/2020 (LMP Unknown) SpO2 98% BMI 37.50 kg/m?? Physical Exam Vitals and nursing note [...] equal, round, and reactive to light. Neck: Thyroid: Thyromegaly present. No thyroid mass or thyroid tenderness. Vascular: No carotid bruit. Trachea: No tracheal deviation. Cardiovascular: Rate and Rhythm: Normal rate and regular rhythm. Pulses: Normal pulses. Heart sounds: Normal heart sounds. No murmur. No friction rub. No gallop. Pulmonary: Effort: Pulmonary effort is normal. No respiratory distress. Breath sounds: Normal breath sounds. No stridor. No wheezing, rhonchi or rales. Abdominal: General: Bowel sounds are normal. There is no distension. Palpations: Abdomen is soft. There is no mass. Tenderness: There is no abdominal tenderness. There is no guarding or rebound. Hernia: No hernia is present. Musculoskeletal: General: Normal range of motion. Cervical back: Normal range of motion and neck supple. No tenderness. Right lower leg: No edema. Left lower leg: No edema. Lymphadenopathy: Cervical: No cervical adenopathy. Skin: General: Skin is warm and dry. Capillary Refill: Capillary refill takes less than 2 seconds. Coloration: Skin is not pale. Neurological: General: No focal deficit present. Mental Status: She is alert and oriented to person, place, and time. Mental status is at baseline. Cranial Nerves: No cranial nerve deficit. Psychiatric: Mood and Affect: Mood normal. Behavior: Behavior normal. Thought Content: Thought content normal. Judgment: Judgment normal. Vital Signs Vitals: 10/30/20 1557 BP: 124/66 BP Location: Right Arm BP Position: Sitting BP Cuff Size: Regular Pulse: 62 Resp: 16 Temp: 98 ??F (36.7 ??C) TempSrc: Temporal SpO2: 98% Weight: 192 lb (87.1 kg) Height: 5' (1.524 m) Lab Results [...] HDLCHOLESTE, LDL, PSA, PSASCREEN, INR, HGBA1C, MACRRAND, FXLXDAEW33, FOLAT, ESR, VIT12 No results found for: SODIUM, POTASSIUM, CHLORIDE, CO2VEN, ANIONGAP, GLUCOSE, BUN, CREATININE, BCRATIO8, TOTALPROTEIN, ALBUMIN, AGRATIO, CALCIUM, TBIL, SGOTAST, SGPTALT, ALKALINEPHO, GFRNA, GFRA, VTMD, TSH, FREET3, T4FREE Please see results review for comprehensive lab results. PHQ-2 Have You Geneva Little Interest or Pleasure in Doing Things?: 0 - Not at all Have You [place] Down, Depressed or Hopeless?: 2 - More than half the days Initial Score - If the score is 2 or higher, please proceed with the additional evaluation.: 2 PHQ-9 3. Trouble falling asleep or staying asleep or sleeping too much?: 2 - More than half the days 4. Feeling tired or having little energy?: 3 - Nearly every day 5. Poor appetite or overeating?: 3 - Nearly every day 6. Feeling bad about yourself or that you are a failure or have let yourself or your family down?: 0 - Not at all 7. Trouble concentrating on things, such as reading the newspaper or watching television?: 2 - Morethan half the days 8. Moving or speaking so slowly that other people could have noticed. Or the opposite - being so fidgety or restless that you have been moving around a lot more than usual?: 0 - Not at all 9. Thoughts that you would be better off or of hurting yourself in some way?: 0 - Not at all 10. If you checked off any problems, how difficult have these problems made it for you to do your work, take care of things at home or get along with other people?: Somewhat difficult Total Score - Questions 1-9: 12 Medical Decision Making: Assessment & Plan Diagnoses and all orders for this visit: Thyroid function study abnormality Other orders - levonorgestrel (Kyleena) 19.5 MG IUD; intrauterine device (IUD) - ibuprofen (MOTRIN) 200 MG Tablet; Take 200 mg by mouth every 8 hours as needed. - acetaminophen (TYLENOL) 325 MG Tablet; Take 325 mg by mouth every 4 hours as needed. Discussed with patient does need her records from her route delivery driver in previous PCP. Will attemptto get these records. Follow-up in 6 weeks. Will add lab work as needed pending review of her past records. Patient instructed to hold metformin at this time. Patient verbalizes understanding. Return in about 6 weeks (around 2020). documented in this encounter Plan of Treatment Upcoming Encounters Date Type Department Care Team (Late st Contact Info) Description 08/19/2024 8:45 AM FIBERGLASS INSULATION INSTALLER Office Visit [facility] - [place] [address] [place] [phone] Bessy Alcaraz APRN, PRESCHOOL DISABILITY TEACHER [address] [phone] documented as of this encounter Visit Diagnoses Diagnosis Thyroid function study abnormality- Primary Nonspecific abnormal results of thyroid function study documented in this encounter Additional Health Concerns Assessment Noted Time PHQ-9 Depression Total Score: 12 021 3:00 PM CDT documented as of this encounter Care Teams Industrial Conveyor Belt Repairer Relationship Specialty Start Date End Date Bessy Alcaraz APRN, ARAM [address] [phone] PCP - General Advanced Practice Nurse 10/30/20 Bessy Alcaraz APRN, CNP [address] [phone] Nurse Practitioner Advanced Practice Nurse 10/28/20 documented as of this encounter
--- OUTSIDE RECORDS SUMMARY | 2024-07-28 05:12 | XMS_ITS | Encounter Summary ---
Author Organization [facility] Address [address] [place] [address] Phone Care Team Providers Care Strip Machine Tender Name Role Phone Nicolas Blue MD Primary Care Provider [phone] Reason for Visit * Reason Onset Date Comments Need Order 05/19/2020 Pre-Op COVID danita ting Encounter Details Date Type Department Care Team (Late st Contact Info) Description 05/19/2020 Telephone [facility] - General Surgery - [place] [address]2 [facility] [address] [place] [address] Jose C Reeves, DO [address] [facility] [address] [place] [address] Need Order (Pre-Op COVID testing) Social History Tobacco Use Types Packs/Day Years [...] encounter Miscellaneous Notes * Telephone Encounter - Ly Sears RN - 05/19/2020 11:37 AM CDT COVID-19 Testing Priority ?? Close contact with a suspected or laboratory confirmed COVID-19 patient within 14 days of symptom onset? No/Unsure (Previous Answer - No) ?? History of travel from affected geographic areas within 14 days of symptom onset? No/Unsure (Previous Answer - No) ?? Patient is from facility with clusters of infection not due to influenza and is suspected to be due to COVID-19? No (Previous Answer - No) ?? Patient is at higher risk for complications of COVID-19 (age >= 65 years, immunocompromised, chronic medical conditions, etc)? No (Previous Answer - No) ?? 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 Patient is a resident of a congregate living facility (SNF, retirement, correction)? No (Previous Answer - No) ?? The patient has cough or shortness of breath or any two of the following; fever, chills, muscle pain, headache, sore throat, new loss of smell, or new loss of taste (if not already answered in Travel & Exposure Screening)? No (Previous Answer - No) documented in this encounter Plan of Treatment Upcoming Encounters Date Type Department Care Team (Late st Contact Info) Description 08/19/2024 8:[address] Office Visit [facility] - Family Medicine [facility] [address] [place] [address] Bessy Alcaraz APRN, BIT SHARPENER OPERATOR #[address] [phone] Scheduled Orders Name Type Priority Associated Diagnoses Orde r Schedule SARS-COV-2 BY MOLECULAR Microbiology Routine Preop testing Expected: 05/19/2020, Expires: 08/19/2020 documented as of this encounter Visit Diagnoses Diagnosis Preop testing- Primary Preoperative examination, unspecified documented in this encounter Care Teams Strip Machine Tender Relationship Specialty Start Date End Date Nicolas Blue MD PCP - General Internal Medicine 12/20/18 10/27/20 documented as of this encounter
--- OUTSIDE RECORDS SUMMARY | 2024-07-28 05:12 | XMS_ITS | Encounter Summary ---
Author Organization [facility] Address [address] [place] [address] Phone Care Team Providers Care Chief Optometry Service Name Role Phone Nicolas Blue MD Primary Care Provider [phone] Encounter Details Date Type Department Care Team (Late st Contact Info) Description 04/24/2020 Telephone [facility] - [place] [address] [place] [address] Erinn Montelongo Brittaney, PAC [address] [place] [address] Social History Tobacco Use Types Packs/Day Years [...] encounter Miscellaneous Notes * Telephone Encounter - Aries Gonzalez CMA - 06/03/2020 1:32 PM SITE WORKER Spoke to geovanna malin [place], the [address] has been approved for 3 months. Good from 06/02/2020 to 09/02/2019 approval form scanned into chart. Patient aware Called to Nisha at [facility] WORKER WORKER WORKER * Telephone Encounter - rAies Gonzalez CMA - 05/19/2020 10:29 AM CDT Spoke to Aida at [place] regarding the status of the Linzess 72 MCG, she states that she didn't seethe records that was faxed on 04/27/2020 and asked that they be refaxed to [phone]. This was done and confirmation obtained. She also gave me the direct line to the pharmacy appeal dept of [phone] * Telephone Encounter - Aries Gonzalez CMA - 05/18/2020 3:14 PM CDT LMOM for Randi with [facility] to call me and let me know that status of the appeal faxed to [place]. * Telephone Encounter - Aries Gonzalez CMA - 05/14/2020 11:14 AM CDT Called Randi with [facility] at [phone] extension [phone]. LMOM for her to call back with the status of the appeal faxed to [place] regarding the Linzess 72 MCG. * Telephone Encounter - Aries Gonzalez CMA - 04/27/2020 11:34 AM CDT [place] denied [employer] prior auth, all records were faxed to [facility] for appeal. Confirmation was obtained. * Telephone Encounter - Aries Gonzalez CMA - 04/24/2020 9:05 AM CDT Prior Authorization started on Linzess through [employer]. PINEDO: [id number] PA RX: [id number] documented in this encounter Plan of Treatment Upcoming Encounters Date Type Department Care Team (Late st Contact Info) Description 08/19/2024 8:45 AM SITE WORKER Office Visit [facility] - [place] [address] [place] [address] Bessy Alcaraz APRN, PROJECT ENGINEERING MANAGER [address] [phone] documented as of this encounter Visit Diagnoses Not on filedocumented in this encounter Care Teams Chief Optometry Service Relationship Specialty Start Date End Date Nicolas Blue MD PCP - General Internal Medicine 12/20/18 10/27/20 documented as of this encounter
--- OUTSIDE RECORDS SUMMARY | 2024-07-28 05:12 | XMS_ITS | Encounter Summary ---
Author Organization [facility] Address [address] [place] [address] Phone Care Team Providers Care Vehicle Body Maker Name Role Phone Bessy Alcaraz APRN, CNP Unavailable [phone] Bessy Alcaraz APRN, CNP Primary Care Provid er Reason for Visit * Reason Onset Date Comments Results 11/18/2020 Encounter Details Date Type Department Care Team (Late st Contact Info) Description 11/18/2020 [facility]phone [facility] - [place] [address] [place] [address] Bessy Alcaraz APRN, CNP [address] [address] Results Social History Tobacco Use [...] encounter Miscellaneous Notes * Telephone Encounter - Rema King RN - 11/18/2020 12:04 PM CDT Patient calling back and advised of all results and recommendations as listed in this encounter. Patient not interested in seeing Dr. Ariza any longer. Is asking for an appointment on 11/23/20 with PCPso can discuss further. Patient scheduled per request. FYI * Telephone Encounter - Bessy Alcaraz APN, CNP - 11/18/2020 8:02 AM CDT I have received the records from Dr. Chavez. Based on reviewing, she does have very mild iron deficiency. Looking through her thyroid labs, she does have elevated TPO antibodies and other normal thyroid labs. 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 Based on what I researched and reviewed her treatment at this time includes: Rechecking her TSH and other lab work in three months Diet adequate in: selenium, Vit D, iodine, zinc, B vitamins, and iron. Avoidence of dietary triggers that cause inflammation. Like gluten, soy, grains, eggs, nuts, and dairy. This correlates with what Dr. Ariza had discussed with her except the metformin. I do not think sheneeds this. I would recommend starting the thyroid vitamins and if she would like I can refer her to Dr. Herr our broadcast systems engineer, unless she wants to keep seeing Dr. Ariza. documented in this encounter Plan of Treatment Upcoming Encounters Date Type Department Care Team (Late st Contact Info) Description 08/19/2024 8:45 AM BRANCH MANAGER Office Visit [facility] [address] [place] [address] Bessy Alcaraz APRN, BILLING MACHINE OPERATOR #[address] [address] Scheduled Orders Name Type Priority Associated Diagnoses Orde r Schedule THYROID STIMULATING HORMONE (TSH) Lab Routine Fabian's disease Expected: 05/17/2021, Expires: 07/23/2021 THYROXINE (T4) FREE Lab Routine Fabian's disease Expected: 04/16/2021 (Approximate), Expires: 11/14/2021 TRIIODOTHYRININE (T3) FREE Lab Routine Fabian's disease Expected: 04/21/2022, Expires: 07/21/2022 IRON W/IRON BINDING CAPACITY Lab Routine Iron deficiency anemia, unspecified iron deficiency anemia type Expected: 02/17/2021, Expires: 05/20/2021 FERRITIN Lab Routine Iron deficiency anemia, unspecified iron deficiency anemia type Expected: 12/08/2020 (Approximate), Expires: 11/09/2021 COMPLETE BLOOD COUNT (CBC) WITH DIFF Lab Routine Iron deficiency anemia, unspecified iron deficiency anemia type Expected: 12/08/2020 (Approximate), Expires: 12/09/2021 documented as of this encounter Visit Diagnoses Diagnosis Fabian's disease- Primary Chronic lymphocytic thyroiditis Iron deficiency anemia, unspecified iron deficiency anemia type documented in this encounter Additional Health Concerns Assessment Noted Time PHQ-9 Depression Total Score: 12 021 3:00 PM CDT documented as of this encounter Care Teams Vehicle Body Maker Relationship Specialty Start Date End Date Bessy Alcaraz APRN, ARAM #[address] [address] PCP - General Advanced Practice Nurse 10/30/20 Bessy Alcaraz APRN, ARAM [address] [address] Nurse Practitioner Advanced Practice Nurse 10/28/20 documented as of this encounter
--- OUTSIDE RECORDS SUMMARY | 2024-07-28 05:12 | XMS_ITS | Encounter Summary ---
Author Organization [facility] Address [address] [place] [address] Phone Care Team Providers Care Rod Machine Operator Name Role Phone Nicolas Blue MD Primary Care Provider [phone] Encounter Details Date Type Department Care Team (Late st Contact Info) Description 04/14/2020 Telephone [facility] - [facility]ology - [place] [address] [place] [address] Erinn Montelongo Brittaney, PAC [address] [place] [address] Social History Tobacco Use Types Packs/Day Years [...] Telephone Encounter - Aries Gonzalez CMA - 04/14/2020 9:37 AM CDT Prescription for Linzess was faxed to [facility] in [place]. Confirmation was obtained documented in this encounter Plan of Treatment Upcoming Encounters Date Type Department Care Team (Late st Contact Info) Description 08/19/2024 8:45 AM NET DEVELOPER Office Visit [facility] - [facility] Medicine [facility] [address] [place] [address] Bessy Alcaraz APRN, CRITICAL CARE UNIT NURSE #[address] [address] documented as of this encounter Visit Diagnoses Not on filedocumented in this encounter Care Teams Rod Machine Operator Relationship Specialty Start Date End Date Nicolas Blue MD PCP - General Internal Medicine 12/20/18 10/27/20 documented as of this encounter
--- OUTSIDE RECORDS SUMMARY | 2024-07-28 05:12 | XMS_ITS | Encounter Summary ---
Author Organization [employer] Care Team Providers Care Product Responsibility Liaison Name Role Phone Nicolas Blue MD Primary Care Provider [phone] Encounter Details Date Type Department Care Team (Latest Contact Info) Description 04/13/2020 Travel Social History Tobacco Use Types Packs/Day [...] st Contact Info) Description 08/19/2024 8:45 AM FUR IRONER Office Visit [facility] Group - Family Medicine [facility] [address] [place] [address] Bessy Alcaraz APRN, FORCE VARIATION EQUIPMENT TENDER #[address] [address] documented as of this encounter Visit Diagnoses Not on filedocumented in this encounter Care Teams Product Responsibility Liaison Relationship Specialty Start Date End Date Nicolas Blue MD PCP - General Internal Medicine 12/20/18 10/27/20 documented as of this encounter
--- OUTSIDE RECORDS SUMMARY | 2024-07-28 05:12 | XMS_ITS | Encounter Summary ---
Author Organization [facility] [employer] Care Team Providers Care Electrical Installation Supervisor Name Role Phone Nicolas Blue MD Primary Care Provider [phone] Encounter Details Date Type Department Care Team (Latest Contact Info) Description 08/12/2019 Travel Social History Tobacco Use Types Packs/Day [...] st Contact Info) Description 08/19/2024 8:45 AM MARINE BIOLOGIST Office Visit [facility] Medical Group - Family Medicine [facility] [address] [place] [phone] Bessy Alcaraz APRN, FILM CASTING OPERATOR #[address] [address] documented as of this encounter Visit Diagnoses Not on filedocumented in this encounter Care Teams Electrical Installation Supervisor Relationship Specialty Start Date End Date Nicolas Blue MD PCP - General Internal Medicine 12/20/18 10/27/20 documented as of this encounter
--- OUTSIDE RECORDS SUMMARY | 2024-07-28 05:12 | XMS_ITS | Encounter Summary ---
Author Organization [address] [employer] [facility] Care Team Providers Care Middle School Teacher Name Role Phone Bessy Alcaraz APRN, CNP Unavailable + [phone] Bessy Alcaraz APRN, CNP Primary Care Provid er Encounter Details Date Type Department Care Team (Latest Contact Info) Description 10/30/2020 Travel Social History Tobacco Use Types Packs/Day Years Used Date Smoking Tobacco: Never Smokeless Tobacco: Never Alcohol Use Standard Drinks/Week Comments Yes 0 (1 standard drink = 0.6 oz pur e alcohol) Rarely PHQ-2 Answer Date Recorded Total Score - Questions 1-9 12 /03/2021 Sexually Active Control Partners Comments Yes I.U.D. [...] Contact Info) Description 08/19/2024 8:45 AM DIRECTOR INSURANCE Office Visit [facility] - Family Medicine [facility] [address]2 [place] [address] Bessy Alcaraz APRN, CNP #[address] [address] documented as of this encounter Visit Diagnoses Not on filedocumented in this encounter Additional Health Concerns Assessment Noted Time PHQ-9 Depression Total Score: 12 021 3:00 PM CDT documented as of this encounter Care Teams Middle School Teacher Relationship Specialty Start Date End Date Bessy Alcaraz APRN, ARAM #[address] [address] PCP - General Advanced Practice Nurse 10/30/20 Bessy Alcaraz APRN, ARAM [address] [phone] Nurse Practitioner Advanced Practice Nurse 10/28/20 documented as of this encounter
--- OUTSIDE RECORDS SUMMARY | 2024-07-28 05:14 | XMS_ITS | Clinical Summary ---
Author Organization [facility] Address [address] [place] [address] Care Team Providers Care Sheet Metal Operator Name Role Phone Bessy Alcaraz NP Primary Care Provider + Referring, Unknown Unavailable Unavailabl e Allergies Active Allergy Reactions Criticality Noted Date Comments Etonogestrel-Ethinyl Estradiol Swelling High 04/05 Latex Other (See comments) High 04/05/2024 Medications Concerta 18 mg CR tablet 3 Active atomoxetine (STRATTERA) 60 mg capsule Take 1 capsule (60 mg total) by mouth daily 4 Active atomoxetine (STRATTERA) 80 mg capsule Take 1 capsule (80 mg total) by mouth daily 4 Active buPROPion XL (WELLBUTRIN XL) 150 mg 24 hr tablet Take 1 tablet (150 mg total) by mouth daily Active dextroamphetami ne-amphetamine XR (ADDERALL XR) 25 mg 24 hr capsule Take 1 capsule (25 mg total) by mouth fondant puff maker before breakfast 4 Active Active Problems No known active problems Encounters Date Type Department Care Team Description 06/03/2024 Telephone [facility] [place] [address] [place] [address] Angeli Cox MA 06/01/2024 6:32 PM LODGING MANAGER - 06/01/2024 11:59 PM LODGING [place] [address] Acute bacterial sinusitis; Sore throat Discharge Disposition: Discharge to home or self care 06/01/2024 6:15 PM LODGING MANAGER Office Visit [facility] [place] [address] [place] [address] Latrice Pugh NP Acute bacterial sinusitis (Primary Dx); Antibiotic-induced yeast infection; Sore throat 05/23/2024 6:45 PM CDT Office Visit [facility] [place] [address] [place] [address] Greta Morales NP Streptococcal pharyngitis (Primary Dx) 05/08/2024 11:26 AM CDT - 05/08/2024 11:59 PM CDT Hospital Encounter [address] [address] Pre-employment health screening examination Discharge Disposition: Discharge to home or self care 05/08/2024 Orders Only [facility] Healthcare Occupatiuonal [facility] [address] [facility] Room [address] (Third Floor) [place] [address] oRbert Miguel MD Pre-employment health screening examination (Primary Dx) from Last 3 Months Immunizations Name Administration Dates Next Due DTP / HiB 06/24/1997,04/17/1997,02/11/1997 HPV9 07/04/2019, 9,09/21/2018,02/11 Hep A, Ped Unspecified 11/03/2008 Hep B, Adolescent or Pediatric 06/24/1997,1996,1996 Influenza, Quadrivalent, Spl it, Preservative Free, Intramuscular 05/22/2023,05/18/2022,05/17/2019 Influenza, Unspecified 04/24/2020 Meningococcal C Conjugate 11/03/2008 Meningococcal MCV4P (Menactra) 04/22/2015 OPV 04/17/1997,02/11/1997 Tdap 11/01/2022 Varicella 11/03/2008 Medical History Medical History Date Comments ADHD (attention deficit hyperactivity disorder) Social History Tobacco Use Types Packs/Day Years Used Date Smoking Tobacco: Never Smokeless Tobacco: Never Comments No Sex and Gender Information Value Date Recorded Sex Assigned at Not on file Legal Sex Female 10:43 AM LODGING MANAGER Gender Identity Not on file Sexual Orientation Not on file Obstetrics History Last Filed Vital Signs Vital Sign Reading Time Taken Comments Blood Pressure 118/72 06/01/2024 6:07 PM LODGING MANAGER Pulse 65 06/01/2024 6:07 PM LODGING MANAGER Temperature 36.8 ??C (98.2 ??F) 06/01/2024 6:07 PM CS T Respiratory Rate 18 06/01/2024 6:07 PM LODGING MANAGER Oxygen Saturation 98% 06/01/2024 6:07 PM LODGING MANAGER Inhaled Oxygen Concentration - - Weight 82.6 kg (182 lb) 06/01/2024 6:07 PM LODGING MANAGER Height 152.4 cm (5') 05/23/2024 6:52 PM CDT Body Mass Index 35.54 05/23/2024 6:52 PM CDT Plan of Treatment Health Maintenance Due Date Last Done Comments Cervical Cancer Screening 1996 Depression Screening 1996 Hepatitis C Screening 1996 Varicella Vaccines (2 of 2 - 2-dose childhood series) 01/26/2009 11/03/2008 Regular Well Visit/Exam 18-64 2014 Covid-19 Vaccine ( season) 2024 07/20/2021, 12/26/2020, 12/05/2020 Influenza Vaccine (#1) 2024 , 05/18/2022, 04/24/2020, Additional history exists DTaP/Tdap/Td Vaccine (5 - Td or Tdap) 11/01/2032 11/01/2022, 06/24/1997, 04/17/1997, Additional history exists HPV Vaccines Completed 07/04/2019, 0811/2018, 09/21/2018, Additional history exists Pneumococcal vaccine <65 Aged Out No longer eligible based on patient's age to complete this topic Procedures Procedure Name Priority Date/Time Associated Diagnosis Comments THROAT CULTURE Routine 06/01/2024 6:32 PM LODGING MANAGER Acute bacterial sinusitis Sore throat POCT RAPID STREP Routine 06/01/2024 6:30 PM LODGING MANAGER Sore throat POC INFLUENZA A/B, COVID-19 ANTIGEN Routine 05/23/2024 7:09 PM CDT Streptococcal pharyngitis POCT RAPID STREP Routine 05/23/2024 7:09 PM CDT Streptococcal pharyngitis T-SPOT.TB Routine 05/08/2024 11:26 AM CDT Pre-employment health screening examination from Last 3 Months Results * Throat culture Throat (06/01/2024 6:32 PM LODGING MANAGER) Report Final Report: No growth of pathogens. Comment:Testing performed by : [facility], [address] [place]., [address] Throat 06/01/2024 6:32 PM LODGING MANAGER 06/02/2024 12:58 AM LODGING MANAGER Narrative [facility] LYLE - 06/02/2024 8:49 PM LODGING MANAGER Testing performed by [facility] Microbiology Laboratory ([phone]). Latrice Pugh NP LAB MICROBIOLOGY - GENERAL ORD ERABLES Final Result [facility] [id number] Department [place] [address] * POCT rapid strep A (06/01/2024 6:30 PM LODGING MANAGER) Pathologist [facility] Rapid Strep A, POC Negative Negative Swab 06/01/2024 6:30 PM LODGING MANAGER Latrice Pugh NP POINT OF CARE TEST ORDERABLES Final Result * POC Influenza A/B, COVID-19 antigen (05/23/2024 7:09 PM CDT) Influenza A Ag, POC Negative Negative [facility] Influenza B Ag, POC Negative Negative [facility] COVID-19 Ag POC Presumptive Negative Presumptive Negative, Invalid [facility] Nasal 05/23/2024 7:09 PM CDT Greta Morales NP POINT OF CARE TEST ORDERABLES Fi nal Result [facility] [place] [place] [address], [facility] * (ABNORMAL) POCT rapid strep A (05/23/2024 7:09 PM CDT) Rapid Strep A, POC Positive(A ) Negative Swab 05/23/2024 7:09 PM CDT Gretaeddie Morales MACHINE SHOP APPRENTICE POINT OF CARE TEST ORDERABLES Fi nal Result * T-SPOT.TB Blood (05/08/2024 11:26 AM CDT) [facility] T-SPOT.TB Negative SeeBelow Comment: Normal Value: Negative A negative test result does not exclude the possibility of exposure to or infection with Mycobacterium tuberculosis (M. tuberculosis). ??Patients with recent exposure to TB infected individuals exhibiting a negative T-SPOT.TB result should be considered for retesting within 6 weeks or if other relevant clinical symptoms indicate. ??Results from T-SPOT.TB testing must be used in conjunction with each individual's epidemiological history, current medical status, and results of other diagnostic evaluations. ??The T-SPOT.TB test is qualitative and results are reported as positive, borderline or negative, given that the test controls perform as expected. In line with the Centers for Disease Control and Prevention's 2010 recommendation to report quantitative measurements alongside the qualitative result, the laboratory provides spot counts for informational purposes only. ??The T-SPOT.TB test should not be interpreted as a quantitative test. T-SPOT.TB Panel A Spot Count 0 [facility] T-SPOT.TB Panel B Spot Count 0 [facility] T-SPOT.TB Negative Control Passed [facility] T-SPOT.TB Positive Control Passed [facility] Comment: Test Performed at: [facility], [facility] [place], [place] ??[phone] ? BLESSING RIOS,PHD Blood 05/08/2024 11:2 6 AM CDT 05/08/2024 2:37 PM CDT Adriel ECKERT CH - 05/10/2024 12:43 PM CDT Bill to [facility] - 1520 Patient is employed by/enrolled at:->[employer] Robert Miguel MD LAB MICROBIOLOGY - GENERAL OR DERABLES Final Result [facility] [id number] Department [place] [address] from Last 3 Months Insurance [facility] Care Teams Sheet Metal Operator Relationship Specialty Start Date End Date Bessy Alcaraz NP [address] [place] [address] PCP - General Nurse Practitioner 09/19/22 Referring, MD Haylie 09/19/22
--- OUTSIDE RECORDS SUMMARY | 2024-07-28 05:14 | XMS_ITS | Encounter Summary ---
Author Organization [facility] Address [address] [place] [address] Care Team Providers Care Paper Products Machine Operator Name Role Phone Bessy Alcaraz NP Primary Care Provider + Referring, Unknown MD Unavailable Unavailabl e Reason for Visit * Reason Comments Sore Throat Sore throat and swel ling in her throat. Sx began 4 days ago and worsening.Nasal drainage causing her to cough. Daughter diagnosed with Rhinovirus. 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 Gender Identity Not on file Sexual Orientation Not on file documented as of this encounter Last Filed Vital Signs Vital Sign Reading Time Taken Comments Blood Pressure 122/80 05/23/2024 6:52 PM CDT Pulse 92 05/23/2024 6:52 PM CDT Temperature 36.9 ??C (98.4 ??F) 05/23/2024 6:52 PM CD T Respiratory Rate 18 05/23/2024 6:52 PM CDT Oxygen Saturation 99% 05/23/2024 6:52 PM CDT Inhaled Oxygen Concentration - - Weight 79.4 kg (175 lb) 05/23/2024 6:52 PM CDT Height 152.4 cm (5') 05/23/2024 6:52 PM CDT Body Mass Index 34.18 05/23/2024 6:52 PM CDT documented in this encounter Patient Instructions * Patient Instructions* Greta Morales NP - 05/23/2024 6:45 PM CDT Complete antibiotic as prescribed Tylenol or Motrin for fever/pain Stay hydrated- Drinking fluids is extremely important to prevent dehydration Gargle with warm saltwater up to 3 times a day as this can help with pain Throat lozenges or sprays Follow up with your PCP if you are not getting better Go to ER if you develop: Trouble swallowing or breathing or if child can barely speak or cry Fever >104 Dehydration or decreased Urine Output, very dry mouth or no tears when crying You may return to work, daycare, or school 24 hours after starting antibiotics and you are fever free Do not share food, drinks, or utensils Replace your toothbrush within 24 hours after starting antibiotics and again after 3-4 days. I recommend washing your pillow cases and sheets after 24 hours Home Treatments: Warm fluids or chicken broth Ice cream, popsicles, slushes, sherbert Gargle w warm salt water Avoid spicy or citrus foods documented in this encounter Ordered Prescriptions Prescription Sig Dispense Quantity Refills Last Filled Start Date End Date amoxicillin 500 mg tablet/capsuleIndic ations:Streptococca l pharyngitis Take 1 tablet/caps ule (500 mg total) by mouth 2 (two) times a day for 10 days 20 tablet/capsule 05/23/2024 06/01/2024 documented in this encounter Progress Notes * Greta Morales NP - 05/23/2024 6:45 PM CDT Images from the original note were not included. Subjective/Objective Patient ID: Cee March is a 28 y.o. female. Chief Complaint Sore Throat (Sore throat and swelling in her throat. Sx began 4 days ago and worsening./Nasal drainage causing her to cough. Daughter diagnosed with Rhinovirus.//) Patient presents to [facility] care for sore throat x4 days. She denies any known exposure to COVID, flu, or strep. She states that she was recently exposed to rhino virus by her daughter. She statesshe has experienced a cough as well. She has taken OTC Tylenol, ibuprofen, an antihistamine with minimal relief. She denies any fevers, difficulty swallowing, chest pain, or shortness of breath. Sore Throat Review of Systems HENT: Positive for sore throat. All systems reviewed and are negative or non contributory for this patient's presentation today other than as stated in the HPI. Physical Exam Vitals reviewed. Constitutional: General: She is not in acute distress. Appearance: Normal appearance. She is well-developed. She is not ill-appearing. HENT: Head: Normocephalic. Right Ear: Tympanic membrane, ear canal and external ear normal. Left Ear: Tympanic membrane, ear canal and external ear normal. Nose: No congestion or rhinorrhea. Right Sinus: No maxillary sinus tenderness or frontal sinus tenderness. Left Sinus: No maxillary sinus tenderness or frontal sinus tenderness. Mouth/Throat: Lips: [place]. Mouth: Mucous membranes are moist. Pharynx: Oropharyngeal exudate and posterior oropharyngeal erythema present. Eyes: General: Right eye: No discharge. Left eye: No discharge. Conjunctiva/sclera: Conjunctivae normal. Cardiovascular: Rate and Rhythm: Normal rate and regular rhythm. Pulmonary: Effort: Pulmonary effort is normal. No respiratory distress. Breath sounds: Normal breath sounds and air entry. Musculoskeletal: General: Normal range of motion. Cervical back: Neck supple. Lymphadenopathy: Head: Right side of head: No tonsillar adenopathy. Left side of head: No tonsillar adenopathy. Cervical: No cervical adenopathy. Skin: General: Skin is warm and dry. Findings: No rash. Neurological: Mental Status: She is alert and oriented to person, place, and time. Mental status is at baseline. Psychiatric: Attention and Perception: Attention normal. Mood and Affect: Mood normal. Behavior: Behavior normal. Behavior is cooperative. Thought Content: Thought content normal. Judgment: Judgment normal. Vitals: 05/23/24 1852 BP: 122/80 Pulse: 92 Resp: 18 Temp: 36.9 ??C (98.4 ??F) TempSrc: Temporal SpO2: 99% Weight: 79.4 kg (175 lb) Height: 152.4 cm (5') Assessment/Plan Diagnoses and all orders for this visit: Streptococcal pharyngitis (Primary) - POCT rapid strep A - POC Influenza A/B, COVID-19 antigen - amoxicillin 500 mg tablet/capsule; Take 1 tablet/capsule (500 mg total) by mouth 2 (two) times a day for 10 days Rapid strep positive COVID and influenza negative Amoxicillin as prescribed Tylenol/Motrin as needed for pain Gargle with warm saltwater to help with pain Discussed the importance of increasing fluid intake and rest Return to clinic or follow-up with your PCP if symptoms persist after completion of antibiotics or sooner if symptoms worsen Go to the ER if you develop severe pain, trouble swallowing, chest pain, signs of dehydration, or shortness of breath Recent Results (from the past 4 hour(s)) POCT rapid strep A Collection Time: 05/23/24 7:09 PM Result Value Ref Range Rapid Strep A, POC Positive (A) Negative POC Influenza A/B, COVID-19 antigen Collection Time: 05/23/24 7:09 PM Result Value Ref Range Influenza A Ag, POC Negative Negative Influenza B Ag, POC Negative Negative COVID-19 Ag POC Presumptive Negative Presumptive Negative, Invalid Patient Education: Disposition Treatment plan including expectations, follow up, and return precautions discussed with patient/parent, verbalizes understanding. Medication dosage, use, and potential adverse reactions discussed with patient/parent. Advised to follow up with PCP if symptoms do not resolve as expected or sooner if condition worsens. Signs/symptoms warranting ER evaluation reviewed. Patient and/or guardian was given an opportunity to ask questions, questions answered. Greta Morales NP documented in this encounter Plan of Treatment Not on file documented as of this encounter Procedures Procedure Name Priority Date/Time Associated Diagnosis Comments POC INFLUENZA A/B, COVID-19 ANTIGEN Routine 05/23/2024 7:09 PM CDT Streptococcal pharyngitis POCT RAPID STREP Routine 05/23/2024 7:09 PM CDT Streptococcal pharyngitis documented in this encounter Results * POC Influenza A/B, COVID-19 antigen (05/23/2024 7:09 PM CDT) Influenza A Ag, POC Negative Negative [facility] Influenza B Ag, POC Negative Negative [facility] COVID-19 Ag POC Presumptive Negative Presumptive Negative, Invalid [facility] Nasal 05/23/2024 7:09 PM CDT Greta Morales TOUR ESCORT POINT OF CARE TEST ORDERABLES Fi nal Result [facility] [address] [place] [address], [facility] * (ABNORMAL) POCT rapid strep A (05/23/2024 7:09 PM CDT) Pathologist [facility] Rapid Strep A, POC Positive(A ) Negative Swab 05/23/2024 7:09 PM CDT Greta Morales TOUR ESCORT POINT OF CARE TEST ORDERABLES Fi nal Result documented in this encounter Visit Diagnoses Diagnosis Streptococcal pharyngitis- Primary Streptococcal sore throat documented in this encounter Historical Medications * This list may reflect changes made after this encounter. dextroamphetamin e-amphetamine XR (ADDERALL XR) 25 mg 24 hr capsule Take 1 capsule (25 mg total) by mouth network program manager before breakfast 05/14/2024 added in this encounter Additional Health Concerns Infection Onset Date Last Indicated Resolved Time COVID: Suspected 05/23/2024 05/23/2024 05/23/2024 7:10 PM CDT documented as of this encounter Care Teams Paper Products Machine Operator Relationship Specialty Start Date End Date Bessy Alcaraz, TOUR ESCORT [address] [address] PCP - General Nurse Practitioner 2/27/23 Referring, Unknown, MD 09/19/22 documented as of this encounter
--- OUTSIDE RECORDS SUMMARY | 2024-07-28 05:14 | XMS_ITS | Encounter Summary ---
Author Organization [facility] Address [address] [place] [address] Care Team Providers Care .Net Architect Name Role Phone Bessy Alcaraz NP Primary Care Provider + Referring, Unknown MD Unavailable Unavailabl e Encounter Details Date Type Department Care Team (Late st Contact Info) Description 05/08/2024 Orders Only [facility] Occupatiuonal Health [address] [facility] [address] (Third Floor) [place], [place] [id number] Robert Miguel MD [address] [facility] [address] [place], [place] [id number] Pre-employment health screening examination (Primary Dx) Social History Tobacco Use Types Packs/Day Years Used Date Smoking Tobacco: Never Smokeless Tobacco: Never Comments Unknown Sex and Gender Information Value Date Recorded Sex Assigned at Not on file 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 T-SPOT.TB Panel A Spot Count 0 [facility] T-SPOT.TB Panel B Spot Count 0 [facility] T-SP[facility] Negative Control Passed [facility]-SPOT.TB Positive Control Passed [facility] Comment: Test Performed at: [facility] [place], [place] ??[address] ? BLESSIGN RIOS,PHD Blood 05/08/2024 11:2 6 AM CDT 05/08/2024 2:37 PM CDT Narrative [facility] - 05/10/2024 12:43 PM CDT Bill to [facility] [address] Patient is employed by/enrolled at:->[employer] Robert Miguel MD LAB MICROBIOLOGY - GENERAL OR DERABLES Final Result [facility] [id number] [place] [address] documented in this encounter Visit Diagnoses Diagnosis Pre-employment health screening examination- Primary Health examination of defined subpopulation Pre-employment health screening examination Health examination of defined subpopulation documented in this encounter Care Teams .Net Architect Relationship Specialty Start Date End Date Bessy Alcaraz NP [address] [address] PCP - General Nurse Practitioner 09/19/22 Referring, MD Haylie 09/19/22 documented as of this encounter
--- OUTSIDE RECORDS SUMMARY | 2024-07-28 05:14 | XMS_ITS | Encounter Summary ---
Author Organization [facility] Healthcare Address [address] [place] [address] Care Team Providers Care Air Cargo Specialist Supervisor Name Role Phone Bessy Alcaraz NP Primary Care Provider + Referring, Unknown MD Unavailable Unavailabl e Reason for Visit * Reason Comments Sore Throat Pt has come in today with C/O a sore throat. Pt states her sore throat started about 25 days ago. Pt states she's been on several ABX with no relief. Encounter Details Date Type Department Care Team (Late st Contact Info) Description 06/01/2024 6:15 PM WET FINISHER Office Visit [facility] [place] [address] [place] [id number] Latrice Pugh NP [address] [place] [address] Acute bacterial sinusitis (Primary Dx); Antibiotic-induced yeast infection; Sore throat Social History Tobacco Use Types Packs/Day Years Used Date Smoking Tobacco: Never Smokeless Tobacco: Never Comments No Sex and Gender Information Value Date Recorded Sex Assigned at Not on file Legal Sex Female 10:43 AM WET FINISHER Gender Identity Not on file Sexual Orientation Not on file documented as of this encounter Last Filed Vital Signs Vital Sign Reading Time Taken Comments Blood Pressure 118/72 06/01/2024 6:07 PM WET FINISHER Pulse 65 06/01/2024 6:07 PM WET FINISHER Temperature 36.8 ??C (98.2 ??F) 06/01/2024 6:07 PM CS T Respiratory Rate 18 06/01/2024 6:07 PM WET FINISHER Oxygen Saturation 98% 06/01/2024 6:07 PM WET FINISHER Inhaled Oxygen Concentration - - Weight 82.6 kg (182 lb) 06/01/2024 6:07 PM WET FINISHER Height - - Body Mass Index 35.54 05/23/2024 6:52 PM CDT documented in this encounter Patient Instructions * Patient Instructions* Latrice Pugh IS ARCHITECT - 06/01/2024 6:15 PM WET FINISHER Magic mouthwash: equal parts liquid benadryl/diphenhydramine and maalox/mylanta + 1-2 drops of anbesol. Gargle and spit every 6 hours for sore throat as needed. PHARYNGITIS Strep testing today was Negative A throat culture has been sent to the lab. The clinic will call with abnormal results. Most sore throats are caused by viruses. Viruses last approx 7-10 days on average. Antibiotics do not help. Using them to treat viral infections helps strengthen bacteria and make them resistant to antibiotics. Sore throats should only be treated with antibiotics if a strep test is positive. Follow up with your pcp if symptoms are not improving. Go to ER/call PCP if worsening symptoms including fever unrelieved by tylenol/ibuprofen, rash, difficulty swallowing, tonsillar/throat swelling, difficulty breathing. The following tips may help your sore throat feel better: ? Drink warm liquids such as lemon tea or tea with honey. ? Gargle several times a day with warm salt water (1/2 tsp of salt in 1 cup water). ? Drink cold liquids or suck on popsicles. ? Suck on hard candies or throat lozenges. Young children should not be given such products becausethey can choke on them. ? A cool-mist vaporizer or humidifier can moisten and soothe a dry and painful throat. ? Try [id number] pain medications, such as acetaminophen or ibuprofen Research has proven that unless you are running a fever or symptoms start to improve then get worseagain, sinus infections are typically viral until days 9-10. Finish the entire antibiotic prescription. Take this with food. Eat yogurt or take probiotic daily while on antibiotics. Take all medications as prescribed. Take antibiotics with food If diarrhea occurs while taking antibiotic, try eating yogurt or taking a probiotic daily. OTC decongestants for congestion-pseudoephedrine or phenylephrine-do not use these if you have highblood pressure Mucinex (guaifenisin) to help thin secretions if needed, must drink plenty of water for this to be effective Motrin/Tylenol for pain/fever Antihistamines- Zyrtec, Claritin, Benadryl can be used for runny nose. Drink plenty of water & get plenty of rest A humidifier may also help with congestion May try sinus rinses or steam for additional relief of congestion Antibiotics can affect control. Please use a backup method of protection while on the antibiotic and 1 week after finishing. Follow up with your PCP in 7 days if you are not getting better GO TO EMERGENCY ROOM OR CALL 911 WITH ANY OF THE FOLLOWING SYMPTOMS: HIGH, PERSISTENT FEVER >102; SWELLING, INFLAMMATION, OR REDNESS AROUND EYES, ABNORMAL EYE MOVEMENTS, VISION CHANGES (DOUBLE VISION OR IMPAIRED VISION); SEVERE HEADACHE; ALTERED MENTAL STATUS. THESE ARE SIGNS OF A RARE, BUT SERIOUS COMPLICATION AND REQUIRES IMMEDIATE EMERGENCY ATTENTION FINISHER documented in this encounter Ordered Prescriptions Prescription Sig Dispense Quantity Refills Last Filled Start Date End Date amoxicillin-clavul anate (AUGMENTIN) 875-125 mg per tabletIndications: Acute bacterial sinusitis Take 1 tablet by mouth 2 (two) times a day for 7 days 14 tablet 06/01/2024 4 fluconazole (Diflucan) 150 mg tabletIndications: Antibiotic-induced yeast infection Take 1 tablet (150 mg total) by mouth once for 1 dose Repeat dose in 3 days if symptoms continue 2 tablet 06/01/2024 4 documented in this encounter Progress Notes * Latrice Pugh NP - 06/01/2024 6:15 PM CST Images from the original note were not included. Subjective/Objective Patient ID: Cee March is a 28 y.o. female. Chief Complaint Sore Throat (Pt has come in today with C/O a sore throat. Pt states her sore throat started about 25 days ago. Pt states she's been on several ABX with no relief. ) Pt presents to with c/o sore throat, sinus pressure, cough for the past 2 months on and off for 2 months. Her throat has been the main problem. She has been treated twice with amoxicillin after testing positive for strep and gets somewhat better but not all the way. She has one day left of her second amoxicillin course. OTC meds tried-mucinex. Denies SOB or fever. Pt is drinking plenty of fluids. She has vaginal itching and irritation, she believes yeast infection d/t her antibiotics. Sore Throat Review of Systems HENT: Positive for sore throat. All systems reviewed and are negative or non contributory for this patient's presentation today other than as stated in the HPI. Physical Exam Vitals and nursing note reviewed. Constitutional: General: She is not in acute distress. Appearance: She is not ill-appearing or toxic-appearing. HENT: Head: Normocephalic. Right Ear: Tympanic membrane, ear canal and external ear normal. Left Ear: Tympanic membrane, ear canal and external ear normal. Nose: Mucosal edema present. Mouth/Throat: Pharynx: Posterior oropharyngeal erythema (Mild) and postnasal drip present. Eyes: Conjunctiva/sclera: Conjunctivae normal. Cardiovascular: Rate and Rhythm: Normal rate and regular rhythm. Heart sounds: Normal heart sounds. Pulmonary: Effort: Pulmonary effort is normal. No respiratory distress. Breath sounds: Normal breath sounds. No wheezing or rales. Musculoskeletal: Cervical back: No rigidity. Skin: General: Skin is warm and dry. Neurological: General: No focal deficit present. Mental Status: She is alert and oriented to person, place, and time. Psychiatric: Mood and Affect: Mood normal. Behavior: Behavior normal. Thought Content: Thought content normal. Vitals: 06/01/24 1807 BP: 118/72 BP Location: Right arm Patient Position: Sitting Pulse: 65 Resp: 18 Temp: 36.8 ??C (98.2 ??F) TempSrc: Oral SpO2: 98% Weight: 82.6 kg (182 lb) Patient's last menstrual period was 05/31/2024 (exact date). Assessment/Plan Rapid strep negative, throat culture collected Augmentin for sinusitis, will need 3 more days if throat culture positive Diflucan sent for yeast infection Diagnoses and all orders for this visit: Acute bacterial sinusitis (Primary) - Throat culture Throat; Future - amoxicillin-clavulanate (AUGMENTIN) 875-125 mg per tablet; Take 1 tablet by mouth 2 (two) times aday for 7 days Antibiotic-induced yeast infection - fluconazole (Diflucan) 150 mg tablet; Take 1 tablet (150 mg total) by mouth once for 1 dose Repeat dose in 3 days if symptoms continue Sore throat - POCT rapid strep A - Throat culture Throat; Future Recent Results (from the past 24 hours) POCT rapid strep A Collection Time: 06/01/24 6:30 PM Result Value Ref Range Rapid Strep A, POC Negative Negative Patient Education: Disposition Treatment plan including expectations, follow up, and return precautions discussed with patient/parent, verbalizes understanding. Medication dosage, use, and potential adverse reactions discussed with patient/parent. Advised to follow up with PCP if symptoms do not resolve as expected or sooner if condition worsens. Signs/symptoms warranting ER evaluation reviewed. Patient and/or guardian was given an opportunity to ask questions, questions answered. This office note has been partially dictated using App[employer] software, and as a result portions of the record may have been created with this software. Occasional wrong-word or '[id number]' substitutions may have occurred due to the inherent limitations of voice recognition software. Read the chartcarefully and recognize, using context, where substitutions have occurred Latrice Pugh NP FINISHER documented in this encounter Miscellaneous Notes * Addendum Note - Jose Cleveland MLT - 06/01/2024 6:15 PM CSTAddended by: JOSE CLEVELAND on: 06/01/2024 09:43 PM Modules accepted: Orders FINISHER documented in this encounter Plan of Treatment Not on file documented as of this encounter Procedures Procedure Name Priority Date/Time Associated Diagnosis Comments POCT RAPID STREP Routine 06/01/2024 6:30 PM WET FINISHER Sore throat documented in this encounter Results * Throat culture Throat (06/01/2024 6:32 PM WET FINISHER) Report Final Report: No growth of pathogens. Comment:Testing performed by : [facility], [address] [facility] [facility], [place]., [address] Throat 06/01/2024 6:32 PM WET FINISHER 06/02/2024 12:58 AM WET FINISHER Narrative [facility] - 06/02/2024 8:49 PM WET FINISHER Testing performed by [facility] Microbiology Laboratory ([phone]). us Latrice Pugh NP LAB MICROBIOLOGY - GENERAL ORD ERABLES Final Result [facility] [address] [place] [address] * POCT rapid strep A (06/01/2024 6:30 PM WET FINISHER) [facility] Rapid Strep A, POC Negative Negative Swab 06/01/2024 6:30 PM WET FINISHER Latrice Pugh NP POINT OF CARE TEST ORDERABLES Final Result documented in this encounter Visit Diagnoses Diagnosis Acute bacterial sinusitis- Primary Acute sinusitis, unspecified Antibiotic-induced yeast infection Sore throat Acute pharyngitis Acute bacterial sinusitis Acute sinusitis, unspecified Sore throat Acute pharyngitis documented in this encounter Discontinued Medications Medication Sig Discontinue Reason Start Date End Da te amoxicillin 500 mg tablet/capsuleIndications :Streptococcal pharyngitis Take 1 tablet/capsule (500 mg total) by mouth 2 (two) times a day for 10 days Therapy completed 05/23/2024 06/01/2024 documented as of this encounter Care Teams Air Cargo Specialist Supervisor Relationship Specialty Start Date End Date Bessy Alcaraz NP [address] [place] [address] PCP - General Nurse Practitioner 09/19/22 Referring, Unknown, 09/19/22 documented as of this encounter
--- OUTSIDE RECORDS SUMMARY | 2024-07-28 05:14 | XMS_ITS | Referral Summary ---
Author Organization [facility] Address [address] [place] [address] Care Team Providers Care Laundry Aid Name Role Phone Bessy Alcaraz NP Primary Care Provider + Referring, Unknown Unavailable Unavailabl e Encounters Date Type Department Care Team Description 06/03/2024 Telephone [facility] Medical [facility] Convenient Care at [address] [place] [phone] Angeli Cox MA 06/01/2024 6:32 PM DISTRIBUTION LEAD - 06/01/2024 11:59 PM DISTRIBUTION LEAD Hospital Encounter [facility] [id number] [place] [address] Acute bacterial sinusitis; Sore throat Discharge Disposition: Discharge to home or self care 06/01/2024 6:15 PM DISTRIBUTION LEAD Office Visit [facility] Care at [address] [place] [phone] Latrice Pugh NP Acute bacterial sinusitis (Primary Dx); Antibiotic-induced yeast infection; Sore throat 05/23/2024 6:45 PM CDT Office Visit [facility] Convenient Care at [address] [place] [phone] Greta Morales NP Streptococcal pharyngitis (Primary Dx) 05/08/2024 11:26 AM CDT - 05/08/2024 11:59 PM CDT Hospital Encounter [facility] [address] [place] [address] Pre-employment health screening examination Discharge Disposition: Discharge to home or self care 05/08/2024 Orders Only [facility] Healthcare [facility] [address] [facility] Room [address] (Third [place]) [place] [address] Robert Miguel MD Pre-employment health screening examination (Primary Dx) from Last 3 Months Allergies Active Allergy Reactions Criticality Noted Date [...] 1 capsule (25 mg total) by mouth poultry helper before breakfast 4 Active Active Problems No known active problems Immunizations Name Administration Dates Next Due DTP / HiB 06/24/1997,04/17/1997,02/11/1997 HPV9 07/04/2019, 9,09/21/2018,02/11 Hep A, Ped Unspecified 11/03/2008 Hep B, Adolescent or Pediatric 06/24/1997,1996,1996 Influenza, Quadrivalent, Spl it, Preservative Free, Intramuscular 05/22/2023,05/18/2022,05/17/2019 Influenza, Unspecified 04/24/2020 Meningococcal C Conjugate 11/03/2008 Meningococcal MCV4P (Menactra) 04/22/2015 OPV 04/17/1997,02/11/1997 Tdap 11/01/2022 Varicella 11/03/2008 Social History Tobacco Use Types Packs/Day Years Used Date Smoking Tobacco: Never Smokeless Tobacco: Never Comments No Sex and Gender Information Value Date Recorded Sex Assigned at Not on file Legal Sex Female 10:43 AM DISTRIBUTION LEAD Gender Identity Not on file Sexual Orientation Not on file Last Filed Vital Signs Vital Sign Reading Time Taken Comments Blood Pressure 118/72 06/01/2024 6:07 PM DISTRIBUTION LEAD Pulse 65 06/01/2024 6:07 PM DISTRIBUTION LEAD Temperature 36.8 ??C (98.2 ??F) 06/01/2024 6:07 PM CS T Respiratory Rate 18 06/01/2024 6:07 PM DISTRIBUTION LEAD Oxygen Saturation 98% 06/01/2024 6:07 PM DISTRIBUTION LEAD Inhaled Oxygen Concentration - - Weight 82.6 kg (182 lb) 06/01/2024 6:07 PM DISTRIBUTION LEAD Height 152.4 cm (5') 05/23/2024 6:52 PM CDT Body Mass Index 35.54 05/23/2024 6:52 PM CDT Plan of Treatment Not on file Procedures Procedure Name Priority Date/Time Associated Diagnosis Comments THROAT CULTURE Routine 06/01/2024 6:32 PM DISTRIBUTION LEAD Acute bacterial sinusitis Sore throat POCT RAPID STREP Routine 06/01/2024 6:30 PM DISTRIBUTION LEAD Sore throat POC INFLUENZA A/B, COVID-19 ANTIGEN Routine 05/23/2024 7:09 PM CDT Streptococcal pharyngitis POCT RAPID STREP Routine 05/23/2024 7:09 PM CDT Streptococcal pharyngitis T-SPOT.TB Routine 05/08/2024 11:26 AM CDT Pre-employment health screening examination from Last 3 Months Results * Throat culture Throat (06/01/2024 6:32 PM DISTRIBUTION LEAD) Report Final Report: No growth of pathogens. Comment:Testing performed by : [facility], [address] [facility], [place]., [address] Throat 06/01/2024 6:32 PM DISTRIBUTION LEAD 06/02/2024 12:58 AM DISTRIBUTION LEAD Narrative CERNER - 06/02/2024 8:49 PM DISTRIBUTION LEAD Testing performed by [facility] Microbiology Laboratory ([phone]). Latrice Pugh [employer] LAB MICROBIOLOGY - GENERAL ORD ERABLES Final Result [facility] [address] Department [place] [address] * POCT rapid strep A (06/01/2024 6:30 PM DISTRIBUTION LEAD) [facility] Rapid Strep A, POC Negative Negative Swab 06/01/2024 6:30 PM DISTRIBUTION LEAD Latrice Pugh [employer] POINT OF CARE TEST ORDERABLES Final Result * POC Influenza A/B, COVID-19 antigen (05/23/2024 7:09 PM CDT) [facility] Influenza A Ag, POC Negative Negative [facility] Influenza B Ag, POC Negative Negative [facility] COVID-19 Ag POC Presumptive Negative Presumptive Negative, Invalid [facility] Nasal 05/23/2024 7:09 PM CDT Greta Morales NP POINT OF CARE TEST ORDERABLES Fi nal Result Performing Organization Address [facility]/ZIP Co de Phone Number [facility] [address] [place] [address] * (ABNORMAL) POCT rapid strep A (05/23/2024 7:09 PM CDT) [facility] Rapid Strep A, POC Positive(A ) Negative Swab 05/23/2024 7:09 PM CDT Greta Morales NP POINT OF CARE TEST ORDERABLES Fi nal Result * T-SPOT.TB Blood (05/08/2024 11:26 AM CDT) [facility] T-SPOT.TB Negative SeeBelow Comment: Normal Value: Negative [...] test. T-SPOT.TB Panel A Spot Count 0 [facility] T-SPOT.TB Panel B Spot Count 0 [facility] T-SPOT.TB Negative Control Passed [facility] T-SPOT.TB Positive Control Passed [facility] Comment: Test Performed at: [facility], [employer] [address] [place] [address] ??[phone] ? BLESSING RIOS,PHD Blood 05/08/2024 11:2 6 AM CDT 05/08/2024 2:37 PM CDT Narrative [facility] - 05/10/2024 12:43 PM CDT Bill to [place] [id number] Patient is employed by/enrolled at:->[facility] us Robert Miguel MD LAB MICROBIOLOGY - GENERAL OR DERABLES Final Result [facility] [address] Department [place] [address] from Last 3 Months Insurance [facility] [employer] [facility] H[facility]/PPO Address: [address] [address] [place] [address] Care Teams Laundry Aid Relationship Specialty Start Date End Date Bessy Alcaraz NP [address] [place] [address] PCP - General Nurse Practitioner 09/19/22 Referring, Unknown, 09/19/22
--- OUTSIDE RECORDS SUMMARY | 2024-07-28 05:14 | XMS_ITS | Encounter Summary ---
Author Organization [facility] Healthcare Address [address] [place] [address] Care Team Providers Care Relocation Director Name Role Phone Bessy Alcaraz NP Primary Care Provider + Referring, Unknown MD Unavailable Unavailabl e Encounter Details Date Type Department Care Team (Latest Contact Info) Description 05/08/2024 11:26 AM CDT - 05/08/2024 11:59 PM CDT Hospital Encounter [address] [address] Pre-employment health screening examination Discharge Disposition: Discharge to home or self care Social History Tobacco Use Types Packs/Day Years Used Date Smoking Tobacco: Never Smokeless Tobacco: Never Comments Unknown Sex and Gender Information Value Date Recorded Sex Assigned at Not on file Legal Sex Female 10:43 AM CATH LAB NURSE Gender Identity Not on file Sexual Orientation Not on file documented as of this encounter Medications at Time of Discharge atomoxetine (STRATTERA) 60 mg capsule Take 1 capsule (60 mg total) by mouth daily 04/01/2024 atomoxetine (STRATTERA) 80 mg capsule Take 1 capsule (80 mg total) by mouth daily 03/08/2024 buPROPion XL (WELLBUTRIN XL) 150 mg 24 hr tablet Take 1 tablet (150 mg total) by mouth daily Concerta 18 mg CR tablet 07/05/2023 documented as of this encounter Discharge Disposition Disposition Code Departure Means Destination Discharge to home or self care documented in this encounter Plan of Treatment Not on file documented as of this encounter Procedures Procedure Name Priority Date/Time Associated Diagnosis Comments T-SPOT.TB Routine 05/08/2024 11:26 AM CDT Pre-employment health screening examination documented in this encounter Results * T-SPOT.TB Blood (05/08/2024 11:26 AM CDT) [facility] T-SPOT.TB Negative SeeBelow Comment: Normal Value: Negative [...] test. T-SPOT.TB Panel A Spot Count 0 [facility] T-SPOT.TB Panel B Spot Count 0 [facility] T-SPOT.TB Negative Control Passed [facility] T-SPOT.TB Positive Control Passed [facility] Comment: Test Performed at: [facility], [employer] [address] [place] [address] ??[phone] ? BLESSING RIOS,PHD Blood 05/08/2024 11:2 6 AM CDT 05/08/2024 2:37 PM CDT Narrative [facility] - 05/10/2024 12:43 PM CDT Bill to [facility] - [address] Patient is employed by/enrolled at:->[facility] Robert Miguel MD LAB MICROBIOLOGY - GENERAL OR DERABLES Final Result [facility] [id number] Department [place] [address] documented in this encounter Visit Diagnoses Diagnosis Pre-employment health screening examination Health examination of defined subpopulation documented in this encounter Care Teams Relocation Director Relationship Specialty Start Date End Date Bessy Alcaraz NP [address] [place] [address] PCP - General Nurse Practitioner 09/19/22 Referring, Unknown, 09/19/22 documented as of this encounter
--- OUTSIDE RECORDS SUMMARY | 2024-07-28 05:14 | XMS_ITS | Encounter Summary ---
Author Organization [facility] Healthcare Address [address] [place] [address] Care Team Providers Care Navigation Teacher Name Role Phone Bessy Alcaraz NP Primary Care Provider + Referring, Unknown MD Unavailable Unavailabl e Encounter Details Date Type Department Care Team (Late st Contact Info) Description 06/03/2024 Telephone [facility] Medical Group Convenient [facility] [address] [place] [address] Angeli Cox MA Social History Tobacco Use Types Packs/Day Years Used Date Smoking Tobacco: Never Smokeless Tobacco: Never Comments No Sex and Gender Information Value Date Recorded Sex Assigned at Not on file Legal Sex Female 10:43 AM PRODUCT OWNER Gender Identity Not on file Sexual Orientation Not on file documented as of this encounter Miscellaneous Notes * Telephone Encounter - Angeli Cox MA - 06/03/2024 9:53 AM CST Spoke with patient who verbalized understanding with no further questions at this time. UCT OWNER * Telephone Encounter - Angeli Cox MA - 06/03/2024 9:53 AM CST ----- Message from Margareth Kaur NP sent at 06/03/2024 7:31 AM PRODUCT OWNER ----- Please contact patient. Throat culture is negative. UCT OWNER documented in this encounter Plan of Treatment Not on file documented as of this encounter Visit Diagnoses Not on filedocumented in this encounter Care Teams Navigation Teacher Relationship Specialty Start Date End Date Bessy Alcaraz, LUDA [address] [place] [address] PCP - General Nurse Practitioner 09/19/22 Referring, Unknown, 09/19/22 documented as of this encounter
--- OUTSIDE RECORDS SUMMARY | 2024-07-28 05:14 | XMS_ITS | Data Portability ---
Author Organization [facility] Deandre Henson Address [address] [place] [place] [address] Care Team Providers Care Log Chain Feeder Name Role Phone YEISON BENAVIDES Primary Care Provider Unavailkaleigh e Assessment No assessment recorded. Plan of Treatment Reminders Order Date Submit Date Provider Last Modified By Organization Details Last Modified Time Details Appointments None recorded. Lab bacterial vaginosis panel, vaginal 2019 020 TWO BUTTES [facility], [address] [place] [address], [address], [place], [address], 0 11:57:53 culture, vaginal/r ectal, streptoco ccus group B 2019 020 TWO BUTTES [facility], [address] [place] [address], [address], [place], [address], 0 11:57:53 test, urine 2019 020 [email or web address] 1 In-Office Order, Internal Use Only DO Not Attach Compendium DO Not Attach Compendium, Do Not Delete/merge, [id number] 0 18:05:35 urinalysi s, dipstick 2020 021 [email or web address] ck1 In-Office Order, Internal Use Only DO Not Attach Compendium DO Not Attach Compendium, Do Not Delete/merge, [id number] 1 09:23:18 urinalysi s, dipstick 2023 024 augabi In-Office Order, Internal Use Only DO Not Attach Compendium DO Not Attach Compendium, Do Not Delete/merge, [id number] 4 15:56:02 vaginal pathogens panel, SUNNY+probe , vaginal fluid 2023 [facility], [address], [place], [address], 4 06:21:36 TSH, ultra-sen sitive, serum 2023 024 [facility], [address] [facility] [address], [place], [address], 4 06:23:36 prolactin , serum 2023 [facility], [address], [place], [address], 4 06:23:37 unlisted lab - DHEA-S+17 -ohp+tesd /T 2023 [facility], [address], [place], [address], 4 06:23:35 cytology report, thin prep, smear or scraping, cervical or vaginal 2023 [facility], [address], [place], [address], 4 10:15:32 Referral None recorded. Procedures None recorded. Surgeries None recorded. Imaging US, pelvis, transabdo lindsey + transvagi nal [address] ([facility]), [address] [place], [address], 1 14:35:07 US, pelvis, complete 2023 024 [facility], [address] [facility] , [place], [address], 4 02:58:35 Medication Orders RepHresh vaginal gel 2019 [facility]75321, [address] , [place], [place], [id number], 0 16:22:19 RepHresh Pro-B 2.5 billion cell capsule 2019 [facility] #11789, [address] , [place], [place], [id number], 0 16:22:07 Ortho Tri-Cycle n (28) 0.18 mg(7)/0.2 15 mg(7)/0.2 5 mg(7)-35 mcg tablet 2019 [facility] #43540, [address] [place], [place], [id number], 0 16:22:16 Kyleena 17.5 mcg/24 hr (up to 5 years) 19.5 mg intrauter ine device 2019 [email or web address] Not available 4 14:57:34 multivita min tablet 2019 [facility] #09446, [address] [place], [place], [id number], 1 16:27:40 Calcium with Vitamin D 600 mg-10 mcg (400 unit) tablet 2019 [facility] #96843, [address] [place], [place], [id number], 1 16:27:20 escitalop maria eugenia 20 mg tablet 2019 [facility] #79899, [address] [place], [place], [id number], 0 16:22:33 multivita min tablet 2019 021 RENZO [facility] #63889, [address], [place], [place], [id number], 1 16:27:43 Calcium with Vitamin D 600 mg-10 mcg (400 unit) tablet 2019 021 [email or web address] [id number] [facility] #95233, [address], [place], [place], [id number], 1 09:37:29 Kyleena 17.5 mcg/24 hr (up to 5 years) 19.5 mg intrauter ine device 2019 020 [email or web address] [facility] #44259, [address], [place], [place], [id number], 4 14:57:34 Patient TargetsNo targets recorded. Patient Instructions Encounter Date Encounter Id Patient Instructions Last Modified By Organization Details Last Modified Time 04/06/2020 [id number] anemia: care instructions joseerman Not available 04/06/2020 15:25:39 Discussed IUD removal and insertion in Aug 2020. mwasserman Not available 04/06/2020 17:56:56 06/04/2024 [id number] painful urinatio n (dysuria): care instructions tran Not available 06/04/2024 15:56:02 Attending Physician Attestation I personally saw and examined the patient with the resident. I have reviewed the documentation and agree with the history, physical findings, work-up, and medical decision making as recorded. Surya Jaffe MD mmetias Not available 06/04/2024 15:51:33 Reason for Referral None Reported. Results Created Date Observation Date Name Description Value Unit Range Abnormal Flag Note LastModifiedBy Organization Detail LastModifiedTime 07/02/2020 pregn john test, urine HCG negati ve Not Available In-Office Order Internal Use Only DO Not Attach Compendium DO Not Attach Compendium, Do Not Delete/merge, [id number] 07/02/2020 16:38:55 04/06/20 20 04/08/2020 bacte rial vagin osis panel , vagin al trich vag by SUNNY NEGATI VE negati ve Not Available [facility] ([facility]) [address] [place], [address], 04/09/2020 11:57:53 04/06/2004/08/2020 bacte rial vagin osis panel , vagin al hsv 1 SUNNY NEGATI VE negati ve Not Available [facility] ([facility]) [address] [place], [address], 04/09/2020 11:57:53 04/06/2004/08/2020 bacte rial vagin osis panel , vagin al hsv 2 SUNNY NEGATI VE negati ve Not Available [facility] ([facility]) [address] [place], [address], 04/09/2020 11:57:53 04/06/2004/09/2020 bacte rial vagin osis panel , vagin al atopobium vaginae LOW - 0 score Not Available [facility] ([facility]) [address] [place], [address], 04/09/2020 11:57:53 04/06/2004/09/2020 bacte rial vagin osis panel , vagin al bvab 2 LOW - 0 score Not Available [facility] ([facility]) [address] [place], [address], 04/09/2020 11:57:53 04/06/2004/09/2020 bacte rial vagin osis panel , vagin al megasphaera 1 LOW - 0 score Calcu late total score by fausto lyon the 3 indiv idual bacte rial vagin osis (BV) marke r score s toget her. Total score is inter prete d as follo ws: Total score 0-1: Indic ates the absen ce of BV. Total score 2: Indet ermin ate for BV. Addit ional clini alrissa data shoul d be evalu ated to estab olamide a diagn osis. Total score 3-6: Indic ates the prese nce of BV. This test was devel oped and its perfo rmanc e naomy cteri stics deter mined by [facility]. It has not been clear ed or appro srikanth by the Food and Drug Admin istra tion. The FDA has deter mined that such clear ance or appro jah is not neces sujata. Not Available [facility] ([facility]) [address] [place], [address], 04/09/2020 11:57:53 04/06/2004/09/2020 bacte rial vagin osis panel , vagin al samira albicans, SUNNY NEGATI VE negati ve Not Available [facility] ([facility]) [address] [place], [address], 04/09/2020 11:57:53 04/06/2004/09/2020 bacte rial vagin osis panel , vagin al samira glabrata, SUNNY NEGATI VE negati ve Not Available [facility] ([facility]) [address] [place], [address], 04/09/2020 11:57:53 04/06/2004/09/2020 bacte rial vagin osis panel , vagin al chlamydia trachomatis, SUNNY NEGATI VE negati ve Not Available [facility] ([facility]) [address] [place], [address], 04/09/2020 11:57:53 04/06/2004/09/2020 bacte rial vagin osis panel , vagin al neisseria gonorrhoeae, SUNNY NEGATI VE negati ve Not Available [facility] ([facility]) [address] [place], [address], 04/09/2020 11:57:53 04/06/2004/08/2020 cultu re, vagin al/re ctal, strep tococ cus group B strep gp B SUNNY NEGATI VE negati ve Cente rs for Disea se Contr ol and Preve ntion (CDC) and Ameri can Congr ess of Obste trici ans and Gynec ologi sts (ACOG ) guide lines for preve ntion of perin atal group B strep tococ larissa (GBS) disea se speci fy co-co llect ion of a vagin al and recta l swab speci men to maxim ize sensi tivit y of GBS detec tion. Per the CDC and ACOG, swabb ing both the lower vagin a and rectu m subst antia lly incre ases the yield of detec tion chyna red with sampl ing the vagin a alone . Penic illin G, ampic illin , or cefaz abdirashid are indic ated for intra partu m proph ylaxi s of perin atal GBS colon izati on. Refle x susce ptibi lity testi ng shoul d be perfo rmed prior to use of clind amyci n only on GBS isola danita from penic illin -yfn rgic women who are consi dered a high risk for anaph ylaxi s. Treat ment with vanco mycin witho ut addit ional testi ng is warra nted if resis tance to clind amyci n is noted . Not Available [facility] ([facility]) [address] [facility], [place], [address], 04/09/2020 11:57:53 06/08/20 21 06/08/2021 urina lysis , dipst ick Leukocytes Trace Not Available In-Offi ce Order Internal Use Only DO Not Attach Compendium DO Not Attach Compendium, Do Not Delete/merge, [id number] 06/08/2021 16:32:46 06/08/20 21 06/08/2021 urina lysis , dipst ick Nitrite negati ve Not Available In-Office Order Internal Use Only DO Not Attach Compendium DO Not Attach Compendium, Do Not Delete/merge, [id number] 06/08/2021 16:32:46 06/08/20 21 06/08/2021 urina lysis , dipst ick Urobilinogen .2 Not Available In-Of fice Order Internal Use Only DO Not Attach Compendium DO Not Attach Compendium, Do Not Delete/merge, 06/08/2021 16:32:46 06/08/20 21 06/08/2021 urina lysis , dipst ick Protein Negati ve Not Available In-Office Order Internal Use Only DO Not Attach Compendium DO Not Attach Compendium, Do Not Delete/merge, 06/08/2021 16:32:46 06/08/20 21 06/08/2021 urina lysis , dipst ick pH 5.5 Not Available In-Office Order Internal Use Only DO Not Attach Compendium DO Not Attach Compendium, Do Not Delete/merge, 06/08/2021 16:32:46 06/08/20 21 06/08/2021 urina lysis , dipst ick Blood Negati ve Not Available In-Office Order Internal Use Only DO Not Attach Compendium DO Not Attach Compendium, Do Not Delete/merge, 06/08/2021 16:32:46 06/08/20 21 06/08/2021 urina lysis , dipst ick Specific Crawford 1.030 Not Available In-Off ice Order Internal Use Only DO Not Attach Compendium DO Not Attach Compendium, Do Not Delete/merge, 06/08/2021 16:32:46 06/08/20 21 06/08/2021 urina lysis , dipst ick Ketone Negati ve Not Available In-Office Order Internal Use Only DO Not Attach Compendium DO Not Attach Compendium, Do Not Delete/merge, 06/08/2021 16:32:46 06/08/20 21 06/08/2021 urina lysis , dipst ick Bilirubin Negati ve Not Available In-Office Order Internal Use Only DO Not Attach Compendium DO Not Attach Compendium, Do Not Delete/merge, 06/08/2021 16:32:46 06/08/20 21 06/08/2021 urina lysis , dipst ick Glucose Negati ve Not Available In-Office Order Internal Use Only DO Not Attach Compendium DO Not Attach Compendium, Do Not Delete/merge, [id number] 06/08/2021 16:32:46 06/04/20 24 06/05/2024 NUSWA B VAGIN ITIS PLUS (VG+) atopobium vaginae LOW - 0 score Not Available [facility] ([facility]) [address] [facility], [place], [address], 06/06/2024 06:21:36 06/04/20 24 06/05/2024 NUSWA B VAGIN ITIS PLUS (VG+) bvab 2 LOW - 0 score Not Available [facility] ([facility]) [address] [facility], [place], [address], 06/06/2024 06:21:36 06/04/20 24 06/05/2024 NUSWA B VAGIN ITIS PLUS (VG+) megasphaera 1 LOW - 0 score Calcu late total score by fausto g the 3 indiv idual bacte rial vagin osis (BV) marke r score s toget her. Total score is inter prete d as follo ws: Total score 0-1: Indic ates the absen ce of BV. Total score 2: Indet ermin ate for BV. Addit ional clini larissa data shoul d be evalu ated to estab olamide a diagn osis. Total score 3-6: Indic ates the prese nce of BV. Not Available [facility] ([facility]) [address] [facility], [place], [address], 06/06/2024 06:21:36 06/04/20 24 06/05/2024 NUSWA B VAGIN ITIS PLUS (VG+) samira albicans, SUNNY NEGATI VE negati ve Not Available [facility]) [address] [facility], [place], [address], 06/06/2024 06:21:36 06/04/20 24 06/05/2024 NUSWA B VAGIN ITIS PLUS (VG+) samira glabrata, SUNNY NEGATI VE negati ve Not Available [facility]) [address] [facility], [place], [address], 06/06/2024 06:21:36 06/04/20 24 06/06/2024 NUSWA B VAGIN ITIS PLUS (VG+) trich vag by SUNNY NEGATI VE negati ve Not Available [facility]) [address] [facility], [place], [address], 06/06/2024 06:21:36 06/04/20 24 06/06/2024 NUSWA B VAGIN ITIS PLUS (VG+) chlamydia trachomatis, SUNNY NEGATI VE negati ve Not Available [facility]) [address] [facility], [place], [address], 06/06/2024 06:21:36 06/04/20 24 06/06/2024 NUSWA B VAGIN ITIS PLUS (VG+) neisseria gonorrhoeae, SUNNY NEGATI VE negati ve Not Available [facility]) [address] [facility], [place], [address], 06/06/2024 06:21:36 06/04/20 24 06/11/2024 IGP, RFX APTIM A HPV ASCU diagnosis: COMMEN T NEGAT GEOVANNA FOR INTRA EPITH ELIAL LESIO N OR NOAH BURT . Not Available [facility] ([facility]) [address] [facility], [place], [address], 06/11/2024 10:15:32 06/04/20 24 06/11/2024 IGP, RFX APTIM A HPV ASCU specimen adequacy: COMMEN T Satis facto ry for evalu ation . Endoc ervic al and/o r squam ous metap lasti c cells (endo cervi larissa compo nent) are prese nt. Not Available [facility] ([facility]) [address] [facility], [place], [address], 06/11/2024 10:15:32 06/04/20 24 06/11/2024 IGP, RFX APTIM A HPV ASCU clinician provided ICD10: SOLE Dorado Z12.4 R30.0 N93.8 Not Available [facility] ([facility]) [address] [place], [address], 06/11/2024 10:15:32 06/04/20 24 06/11/2024 IGP, RFX APTIM A HPV ASCU performed by: Keon Donaldson (ASCP ) Not Available [facility]) [address] [place], [address], 06/11/2024 10:15:32 06/04/20 24 06/11/2024 IGP, RFX APTIM A HPV ASCU . . Not Available [facility] ([facility]) [address] [facility], [place], [address], 06/11/2024 10:15:32 06/04/20 24 06/11/2024 IGP, RFX APTIM A HPV ASCU note: SOLE Dorado The Pap smear is a scree vijaya test desig josef to aid in the detec tion of jareth ligna nt and malig nant condi tions of the uteri ne cervi x. It is not a diagn ostic proce dure and shoul d not be used as the sole means of detec ting cervi larissa cance r. Both false -posi tive and false -nega tive repor ts do occur . Not Available [facility] ([facility]) [address] [place], [address], 06/11/2024 10:15:32 06/04/20 24 06/11/2024 IGP, RFX APTIM A HPV ASCU test methodology: SOEL Dorado This liqui d based ThinP rep(R ) pap test was scree josef with the use of an image guide lala systjoe m. Not Available [facility] ([facility]) [address] [place], [address], 06/11/2024 10:15:32 06/04/20 24 06/11/2024 IGP, RFX APTIM A HPV ASCU . COMMEN T The HPV DNA refle x crite day were not met with this speci men resul t there fore, no HPV testi ng was perfo rmed. Not Available [facility] ([facility]) [address] [facility], [place], [address], 06/11/2024 10:15:32 06/04/20 24 06/05/2024 DHEA- S+17- OHP+T ESD/T DHEA-sulfate 334.0 ug/dL 84.8-3 78.0 Not Available [facility] ([facility]) [address] [facility], [place], [address], 06/12/2024 06:23:35 06/04/20 24 06/05/2024 DHEA- S+17- OHP+T ESD/T testosterone 29 NG/dL 13-71 Not Available [facility]) [address] [place], [address], 06/12/2024 06:23:35 06/04/20 24 06/09/2024 DHEA- S+17- OHP+T ESD/T free testosterone (direct) 1.5 pg/mL 0.0-4. 2 Not Available [facility] ([facility]) [address] [place], [address], 06/12/2024 06:23:35 06/04/20 24 06/12/2024 DHEA- S+17- OHP+T ESD/T 17-oh progesterone lcms 26 NG/dL Adult Femal e Folli cular 15 - 70 Lutea l 35 - 290 Not Available [facility] ([facility]) [address] [place], [address], 06/12/2024 06:23:35 06/04/20 24 06/05/2024 TSH RFX ON ABNOR MAL TO FREE T4 TSH 1.950 uIU/m L 0.450- 4.500 Not Available [facility] ([facility]) [address] [facility], [place], [address], 06/12/2024 06:23:36 06/04/20 24 06/05/2024 PROLA CTIN prolactin 10.8 NG/mL 4.8-33 .4 Not Available [facility] ([facility]) [address] [facility], [place], [address], 06/12/2024 06:23:37 06/04/20 24 06/04/2024 urina lysis , dipst ick Leukocytes Negati ve Not Available In-Office Order Internal Use Only DO Not Attach Compendium DO Not Attach Compendium, Do Not Delete/merge, [id number] 06/04/2024 15:28:27 06/04/20 24 06/04/2024 urina lysis , dipst ick Nitrite negati ve Not Available In-Office Order Internal Use Only DO Not Attach Compendium DO Not Attach Compendium, Do Not Delete/merge, [id number] 06/04/2024 15:28:27 06/04/20 24 06/04/2024 urina lysis , dipst ick Urobilinogen .2 Not Available In-Of fice Order Internal Use Only DO Not Attach Compendium DO Not Attach Compendium, Do Not Delete/merge, [id number] 06/04/2024 15:28:27 06/04/20 24 06/04/2024 urina lysis , dipst ick Protein Negati ve Not Available In-Office Order Internal Use Only DO Not Attach Compendium DO Not Attach Compendium, Do Not Delete/merge, [id number] 06/04/2024 15:28:27 06/04/20 24 06/04/2024 urina lysis , dipst ick pH 5.5 Not Available In-Office Order Internal Use Only DO Not Attach Compendium DO Not Attach Compendium, Do Not Delete/merge, [id number] 06/04/2024 15:28:27 06/04/20 24 06/04/2024 urina lysis , dipst ick Blood Negati ve Not Available In-Office Order Internal Use Only DO Not Attach Compendium DO Not Attach Compendium, Do Not Delete/merge, [id number] 06/04/2024 15:28:27 06/04/20 24 06/04/2024 urina lysis , dipst ick Specific Crawford 1.025 Not Available In-Off ice Order Internal Use Only DO Not Attach Compendium DO Not Attach Compendium, Do Not Delete/merge, [id number] 06/04/2024 15:28:27 06/04/20 24 06/04/2024 urina lysis , dipst ick Ketone Negati ve Not Available In-Office Order Internal Use Only DO Not Attach Compendium DO Not Attach Compendium, Do Not Delete/merge, [id number] 06/04/2024 15:28:27 06/04/20 24 06/04/2024 urina lysis , dipst ick Bilirubin Negati ve Not Available In-Office Order Internal Use Only DO Not Attach Compendium DO Not Attach Compendium, Do Not Delete/merge, [id number] 06/04/2024 15:28:27 06/04/20 24 06/04/2024 urina lysis , dipst ick Glucose Negati ve Not Available In-Office Order Internal Use Only DO Not Attach Compendium DO Not Attach Compendium, Do Not Delete/merge, [id number] 06/04/2024 15:28:27 06/04/20 24 06/04/2024 urina lysis , dipst ick Appearance Slight ly Cloudy Not Available In-Office Order Internal Use Only DO Not Attach Compendium DO Not Attach Compendium, Do Not Delete/merge, [id number] 06/04/2024 15:28:27 06/04/20 24 06/04/2024 urina lysis , dipst ick Color Yellow Not Available In-Office Order Internal Use Only DO Not Attach Compendium DO Not Attach Compendium, Do Not Delete/merge, [id number] 06/04/2024 15:28:27 07/06/20 24 07/01/2024 US, pelnash s, compl ete No observ ation record ed. [facility] (Radiology) [address] [place], [address], 07/09/2024 12:20:25 Result Notes None recorded. Problems Name Problem SNOMED Code Status Onset Date Resolution Date Notes Provider Name and Address Organization Details Recorded Time Acute urinary tract infection 975872180 Completed 201806/04/2024 Yeison Benavides MD Attn: Deborah lyon,[address] [facility], [place], [address], [place] - [facility] 4 14:48:29 Bacterial vaginosis 928419124 Completed 201806/04/2024 Yeison Benavides MD Attn: Accountzachary lyon,[address] [facility], [place], [address], [place] [facility] 14:48:31 Acute cerviciti s 04797008 Completed 201806/04/2024 Yeison Benavides MD Attn: Deborah lyon,[address] [facility], [place], [address], [place] [facility] 4 14:48:26 Irritable bowel syndrome 95876207 Completed 201806/04/2024 Yeison Benavides MD Attn: Deborah lyon,[address] [facility], [place], [address], [place] [facility] 4 14:48:36 Depressiv e disorder 63940126 Active 2019 Yeison Benavdies MD Attn: Deborah lyon,[address] [facility], [place], [address], [place] [facility] 4 14:48:41 Vaginitis 89173707 Completed 201906/04/2024 Yeison Benavides MD Attn: Deborah g,[address] [facility], [place], [address], [place] [facility] 4 14:48:46 Acne 60497543 Completed 201906/04/2024 Yeison Benavides MD Attn: Deborah lyon,[address] [facility], [place], [address], [place] [facility] 4 14:48:23 Past history of pre-eclam psia 049883553284 100 Active 2023 Yeison Benavides MD Attn: Deborah lyon,[address] [facility], [place], [address], [place] [facility] 4 15:50:51 Inflammat ion of cervix 97887594 Active 2023 Yeison Benavides MD Attn: Deborah lyon,[address] [facility], [place], [address], [place] [facility] 4 16:10:50 Dysuria 85184974 Active 2023 Yeison Benavides MD Attn: Deborah lyon,[address] [place], [address], [place] [facility] 4 16:10:53 Abnormal uterine bleeding 884600851880 00 Active 2023 Yeison Benavides MD Attn: Deborah lyon,[address] [facility], [place], [address], [place] [facility] 4 16:10:56 Adult health examinati on Active 2023 Yeison Benavides MD Attn: Deborah lyon,[address] [facility], [place], [address], [place] [facility] 4 16:10:58 Problem Notes None recorded. Procedures Surgical History Date Name Laterality Status Provider Name and Address Organization Details Recorded Time 07/02/20 20 IUD Replacement completed KAILEY ROBLES Attn: Accounting,[address] [place], [address], [place] [facility] 07/02/2020 16:36:44 02/23/20 19 Date of Last Pap Smear completed Megan Armendariz MA [place] - [facility] 04/06/2020 14:39:16 09/19/19 18 IUD Insertion completed Jose C Caba PA - [facility] 09/19/2017 17:19:35 Tonsillectomy completed Tracy Townsend MA PA - [facility] 01/19/2016 15:07:30 Imaging Results Imaging Date Name Status LastModified by Organiz ation Details LastModified Time 07/01/2024 US, pelvis, complete completed [facility] (Radiology) [address] [place], [address], 07/09/2024 12:20:25 Procedure Notes None recorded. Medical Equipment None Reported. Allergies Allergen ID Allergen Name Allergen Category Reaction Reaction Severity Criticality Documentation Date Start Date Code Code System Note Provider Name and Address Organization Details Recorded Time 540057 NuvaRing medicatio n edema severe Not available 09/12/2017 66544 9 RxNorm Tracy Townsend MA null, [place] [facility] 8 15:27:10 796783 latex environme nt,medica tion other severe Not available 09/19/2017 57726 91 RxNorm pt state s react ion to latex condo ms, vagin al mariela ing, cb-rm a Megan Armendariz MA null, [place] - [facility] 8 15:16:02 077760 Monistat- 1 medicatio n swelling Not available Not available 06/04/2024 97794 6 RxNorm LORENA [place] null, [place] [facility] 4 14:53:03 Medications Name Sig Start Date Stop Date Status Note LastModified by Organization Details LastModified Time multivitam in tablet Take 1 tablet every day by oral route. 06/08 completed Not Available Not Available Not Available penicillin V potassium 250 mg tablet 09/20 completed Not Available Not Available Not Available amoxicilli n 500 mg capsule TAKE 1 CAPSULE BY MOUTH TWICE DAILY FOR 10 DAYS 06/04 completed Not Available Not Available Not Available doxycyclin e hyclate 100 mg capsule TAKE 1 CAPSULE BY MOUTH TWICE DAILY FOR 7 DAYS active Not Available Not Available No t Available azithromyc in 250 mg tablet TAKE 2 TABLETS (500 MG) BY ORAL ROUTE ONCE DAILY FOR 1 DAY THEN 1 TABLET (250 MG) BY ORAL ROUTE ONCE DAILY FOR 4 DAYS 07/02 completed Not Available Not Available Not Available nystatin 100,000 unit/gram topical ointment APPLY TO THE AFFECTED AREA(S) BY TOPICAL ROUTE 2 TIMES PER DAY 07/02 completed Not Available Not Available Not Available fluconazol e 150 mg tablet TAKE 1 TABLET BY MOUTH EVERY 72 HOURS 06/04 completed Not Available Not Available Not Available citalopram 10 mg tablet 03/10 completed Not Available Not Available Not Available ranitidine 300 mg tablet 03/10 completed Not Available Not Available Not Available phenazopyr idine 200 mg tablet 07/02 completed Not Available Not Available Not Available metronidaz ole 0.75 % (37.5 mg/5 gram) vaginal gel INSERT ONE APPLICAT ORFUL PER VAGINA EVERY DAY AT BEDTIME 06/04 completed Not Available Not Available Not Available clonazepam 0.5 mg tablet 07/02 completed Not Available Not Available Not Available terconazol e 0.8 % vaginal cream Insert 1 applicat orful every day by vaginal route for 3 days. 07/02 completed Not Available Not Available Not Available metronidaz ole 500 mg tablet Take 1 tablet twice a day by oral route for 10 days. 09/20 completed Not Available Not Available Not Available sulfametho xazole 800 mg-trimeth oprim 160 mg tablet 03/10 completed Not Available Not Available Not Available amoxicilli n 500 mg tablet 06/08 completed Not Available Not Available Not Available amoxicilli n 875 mg tablet TAKE 1 TABLET BY MOUTH TWICE DAILY FOR 7 DAYS 06/04 completed Not Available Not Available Not Available citalopram 20 mg tablet 04/06 completed Not Available Not Available Not Available famotidine 20 mg tablet 09/20 completed Not Available Not Available Not Available omeprazole 10 mg capsule,de layed release 06/08 completed Not Available Not Available Not Available dexamethas one 1 mg tablet 06/08 completed Not Available Not Available Not Available hydrocodon e 7.5 mg-acetami nophen 325 mg tablet 09/20 completed Not Available Not Available Not Available cephalexin 500 mg capsule 07/02 completed Not Available Not Available Not Available ferrous sulfate 325 mg (65 mg iron) tablet 07/02 completed Not Available Not Available Not Available triamcinol one acetonide 0.1 % topical ointment APPLY A THIN LAYER TO THE AFFECTED AREA(S) BY TOPICAL ROUTE 2 TIMES PER DAY 07/02 completed Not Available Not Available Not Available epinephrin e 0.3 mg/0.3 mL injection, auto-injec tor INJECT CONTENTS OF 1 PEN ONCE FOR ALLERGIC REACTION DIRECTED 06/04 completed pt does not have this () Not Available Not Available Not Available ibuprofen 600 mg tablet 02/21 completed Not Available Not Available Not Available dextroamph etamine-am phetamine ER 30 mg 24hr capsule,ex tend release TAKE 1 CAPSULE BY MOUTH ONCE DAILY IN THE MORNING 06/04 completed pt is not taking this () Not Available Not Available Not Available oxybutynin chloride 5 mg tablet Take 1 tablet twice a day by oral route. 07/02 completed Not Available Not Available Not Available ondansetro n 4 mg disintegra ting tablet 06/08 completed Not Available Not Available Not Available methylphen idate ER 18 mg tablet,ext ended release 24 hr TAKE 1 TABLET BY MOUTH ONCE DAILY IN THE MORNING 06/04 completed pt is not taking this () Not Available Not Available Not Available dicyclomin e 10 mg capsule 03/10 completed Not Available Not Available Not Available naproxen 500 mg tablet 02/21 completed Not Available Not Available Not Available methylphen idate ER 36 mg tablet,ext ended release 24 hr TAKE 1 TABLET BY MOUTH ONCE DAILY IN THE MORNING 06/04 completed pt is not taking this () Not Available Not Available Not Available amoxicilli n 875 mg-potassi um clavulanat e 125 mg tablet TAKE 1 TABLET BY MOUTH EVERY 12 HOURS FOR 7 DAYS 06/04 completed Not Available Not Available Not Available oxycodone 5 mg tablet 09/12 completed Not Available Not Available Not Available dextroamph etamine-am phetamine ER 15 mg 24hr capsule,ex tend release TAKE 1 CAPSULE BY MOUTH ONCE DAILY IN THE MORNING 06/04 completed pt is not taking this () Not Available Not Available Not Available dextroamph etamine-am phetamine ER 25 mg 24hr capsule,ex tend release TAKE 1 CAPSULE BY MOUTH ONCE DAILY IN THE MORNING 06/04 completed pt is not taking this () Not Available Not Available Not Available NuvaRing 0.12 mg-0.015 mg/24 hr vaginal Insert 1 vaginal ring every month by vaginal route as directed . 09/12 completed Not Available Not Available Not Available escitalopr am 10 mg tablet Take 1 tablet every day by oral route. 07/02 completed Not Available Not Available Not Available escitalopr am 20 mg tablet Take 1 tablet every day by oral route. 07/02 completed Not Available Not Available Not Available atomoxetin e 60 mg capsule TAKE 1 CAPSULE BY MOUTH ONCE DAILY 06/04 completed pt is not taking this () Not Available Not Available Not Available bupropion HCl XL 300 mg 24 hr tablet, extended release active Not Available Not Available Not Available bupropion HCl XL 150 mg 24 hr tablet, extended release TAKE 1 TABLET BY MOUTH ONCE DAILY IN THE MORNING active Not Available Not Available No t Available 08/12 (28) 1 mg-20 mcg (21)/75 mg (7) tablet Take 1 tablet every day by oral route. 09/20 completed Not Available Not Available Not Available Tri-Sprint ec (28) 0.18 mg(7)/0.21 5 mg(7)/0.25 mg(7)-35 mcg tablet Take 1 tablet every day by oral route. 07/02 completed Not Available Not Available Not Available nitrofuran toin monohydrat e/macrocry stals 100 mg capsule Take 1 capsule twice a day by oral route as directed for 10 days. 06/08 completed Not Available Not Available Not Available NuvaRing 09/12 completed Not Available Not Available Not Available atomoxetin e 80 mg capsule TAKE 1 CAPSULE BY MOUTH ONCE DAILY 06/04 completed pt is not taking this () Not Available Not Available Not Available RepHresh vaginal gel Insert 8 g as needed by vaginal route. 07/02 completed Not Available Not Available Not Available Vyvanse 50 mg capsule active Not Available Not Available N ot Available lisdexamfe tamine 30 mg capsule TAKE 1 CAPSULE BY MOUTH ONCE DAILY active Not Available Not Available No t Available Calcium with Vitamin D 600 mg-10 mcg (400 unit) tablet Take 1 tablet twice a day by oral route. 07/02 completed Not Available Not Available Not Available RepHresh Pro-B 2.5 billion cell capsule Take 1 capsule every day by oral route. 07/02 completed Not Available Not Available Not Available calcium 600 mg (as carbonate) -vitamin D3 20 mcg (800 unit) tablet Take 1 tablet twice a day by oral route. 07/02 completed Not Available Not Available Not Available Linzess 145 mcg capsule 07/02 completed Not Available Not Available Not Available Aurora 14 mcg/24 hr (up to 3 years) 13.5 mg intrauteri ne device Take 1 device by intraute rine route. 07/02 completed Not Available Not Available Not Available Kyleena 17.5 mcg/24 hr (up to 5 years) 19.5 mg intrauteri ne device Take 1 device by intraute rine route. 06/04 completed Not Available Not Available Not Available Linzess 72 mcg capsule 07/02 completed Not Available Not Available Not Available Vitals Date Recorded Body height Provider Name an d Address Organization Details Last Updated DateTime 04/06/2020 152.4 cm Cee March MA [facility] 0 14:40:20 Date Recorded Body mass index (BMI) Body weight Systolic blood pressure Diastolic blood pressure Provider Name and Address Organization Details Last Updated DateTime 04/06/2020 35.7 kg/m2 04830.4 g 114 mm[Hg] 78 mm[Hg] Megan Armendariz MA [facility] 04/06/2020 14:55:46 Date Recorded Body height Body mass index (BMI) Body weight Systolic blood pressure Diastolic blood pressure Provider Name and Address Organization Details Last Updated DateTime 07/02/2020 152.4 cm 36.9 kg/m2 51055.96 g 110 mm[Hg] 68 mm[Hg] Nakia Chirinos MA [facility] 0 16:21:17 Date Recorded Body height Body mass index (BMI) Body weight Systolic blood pressure Diastolic blood pressure Provider Name and Address Organization Details Last Updated DateTime 08/21/2020 152.4 cm 37.3 kg/m2 32989.29 g 114 mm[Hg] 88 mm[Hg] Lata Bennett MA [facility] 1 16:13:19 Date Recorded Body height Body mass index (BMI) Body weight Systolic blood pressure Diastolic blood pressure Provider Name and Address Organization Details Last Updated DateTime 06/08/2021 152.4 cm 34.6 kg/m2 73781.28 g 110 mm[Hg] 66 mm[Hg] Lata Bennett MA [facility] 1 16:34:20 Date Recorded Body height Body mass index (BMI) Body weight Respiratory rate Body temperature Oxygen saturation Oxygen saturation in Arterial blood by Pulse oximetry Heart rate Systolic blood pressure Diastolic blood pressure Provider Name and Address Organization Details Last Updated DateTime 4 152.4 cm 35.2 kg/m2 44380.1 3 g 18 /min 98.2 [degF] 98 % 98 % 106 /min 120 mm[Hg] 83 mm[Hg] LORENA Hawthorne [facility] 4 15:05:25 Social History Question Answer Notes LastModified by Organizat ion Details LastModified Time Tobacco Smoking Status Never Smoker Tracy Townsend MA [facility] 01/19/2016 15:07:31 Do You Have An Advance Directive? No Information not available 04/21/2016 What Is Your Level Of Alcohol Consumption? None Information not available 06/04/2024 Is Blood Transfusion Acceptable In An Emergency? Yes Information not available 04/21/2016 What Is Your Level Of Caffeine Consumption? Occasional Information not available 09/20/2018 How Much Tobacco Do You Chew? None Information not available 01/19/2016 In The 14 Days Before Symptom Onset, Have You Had Close Contact With A Laboratory-confir med COVID-19 While That Case Was Ill? No Information not available 06/04/2024 In The 14 Days Before Symptom Onset, Have You Had Close Contact With A Person Who Is Under Investigation For COVID-19 While That Person Was Ill? No Information not available 06/04/2024 Have You Been To An Area Known To Be High Risk For COVID-19? No Information not available 06/04/2024 Are You Currently Employed? Yes Information not available 09/20/2018 What Type Of Diet Are You Following? REGULAR [email or web address] Information not available 01/19/2016 Which Illicit Or Recreational Drugs Have You Used? Denies [email or web address] Information not available 01/19/2016 Do You Or Have You Ever Used E-cigarettes Or Vape? 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 With Others [email or web address] Information not available 01/19/2016 What Was The Date Of Your Most Recent Tobacco Screening? 06/04/2024 Information not available 06/04/2024 How Many Children Do You Have? 0 [email or web address] Information not available 01/19/2016 Performs Monthly Self-breast Exam? No Information no t available 04/21/2016 Do You Have Any Pets? Yes 1 Dog Information not available 06/08/2021 Do You Use Protection During Sex? No Information not available 04/21/2016 What Is Your Relationship Status? Single [email or web address] Information not available 01/19/2016 Do You Use Your Seat Belt Or Car Seat Routinely? Yes Information not available 06/08/2021 Seat Belts Used Routinely Yes [email or web address] Information not available 01/19/2016 Are You Sexually Active? Yes Information not available 04/21/2016 Do You Have Smoke And Carbon Monoxide Detectors In Your Home? Yes Information not available 06/08/2021 Are You Passively Exposed To Smoke? No Information no t available 06/08/2021 Do You Or Have You Ever Used Smokeless Tobacco? Never Used Smokeless Tobacco Information not available 07/03/2019 How Much Tobacco Do You Smoke? No [email or web address] Information not available 01/19/2016 General Stress Level High Information not available 09/20/2018 Do You Use Any Illicit Or Recreational Drugs? No Information not available 06/08/2021 Do You Use Sunscreen Routinely? Yes Information not available 04/21/2016 Has Tobacco Cessation Counseling Been Provided? Yes Information not available 06/04/2024 On What Date Was Tobacco Cessation Counseling Provided? 06/04/2024 Information not available 06/04/2024 How Many Years Have You Smoked Tobacco? 0 [email or web address] Information not available 01/19/2016 Do You Or Have You Ever Used Any Other Forms Of Tobacco Or Nicotine? No Information not available 06/04/2024 Sex: Unknown Functional Status Question Answer Note LastModified by Organizat ion Details LastModified Time What is your exercise level? Occasional [email or web address] Information not available 01/19/2016 Mental Status None recorded. Family History Relationship Description Onset Age of this Age Resolved Age Notes LastModified by Organization Details LastModified Time Mother Alcoholism [email or web address] Not availa ble 04/21/2016 16:09:19 Father Adenocarcino ma [email or web address] Not available 2015 16:09:19 Notes:06/04/24 Medical History Condition Response Coronary Artery Disease N Kidney Cyst N Blood Diseases N Hyperthyroidism N Blood Transfusion N Blood disorders N MRSA N Emphysema N COPD N Blood Clots N Depression Y Pneumonia N Premature N Peripheral Arterial Disease N Edema N TIA N Headaches/Migraines N Anxiety Disorder Y Obesity N Infertility N Polyps N Acid Reflux (GERD) N Hematuria N Stroke N Neck Injury N Polio N Hospital Admission other than N Neurologic Disorder N Other Sleep Disorders N Rheumatoid Arthritis N Fibromyalgia N Abdominal Aortic Aneurysm Repair N Kidney Disease N Heart Conditions N Heart Disease/Heart Problems N Hospitalizations N Brain Tumors N Acne N Eating Disorder N Skin Problems N Constipation N Meningitis N Tuberculosis N Cerebral Palsy N Myocardial Infarction N Asthma N Substance Abuse N Peripheral Vascular Disease N Vertigo N Sleep Disorder N Cirrhosis N Pulmonary Embolism N Chicken Pox N Flomax Use Past or Present N Hematologic Disease N Anxiety/Depression N Thyroid Disease N Colon Cancer N Glaucoma N Lung Disease N Developmental or Behavioral Disorders N Bipolar N Pacemaker N Diverticulitis/Diverticulosis N Anesthesia Complications N Orthopedic Problems N Orthotics N Head Injury/Concussion N Congenital Anomalies N [place] Bite N Chronic Kidney Disease N Endometriosis N Liver Disease N Dialysis N Schizophrenia N Speech Delay N Chronic Obstructive Pulmonary Disease N Parkinson's Disease N Thyroid Problems N GI Problems N Developmental Delay N Anemia N Immune System Disorder N Multiple Sclerosis N Colon Polyps N Heart Attack (OR) N Diabetes N Cardiomyopathy N Blood Transfusions N Heart Problems/Murmur N Eye Trauma N Congestive Heart Failure (CHF) N Valvular Heart Disease N Hyperlipidemia N Double Vision N Abuse/Domestic Violence N Hepatitis B N Lupus N Epilepsy/Seizures N Reflux/GERD N Aneurysm N Bronchitis N Heart Disease N Hypertension N Pre-Eclampsia N Heart Failure N Other Y Gout N High Blood Pressure N Atrial Fibrillation N Kidney Stones N Head Trauma/Injury N Congenital Heart Disease N Spine Problems N Gastrointestinal Disease N Lung Mass N Sinusitis N Obstructive Sleep Apnea N Muscle, Joint, or Bone Problems N Autoimmune disease N Vision or Eye Problems N Arthritis N Blood Clot N Cancer N Seasonal allergies N Leg or Foot Ulcers N Raynaud's Disease N Aortic Aneurysm N Arrhythmia N Headaches N Heart Problems N Ambl[place]pia N Ear or Hearing Problems N Hyperparathyroidism N Migraines N Artificial Joints N Kidney or Bladder Problems N NSAID Use N Encephalitis N PTSD N Ulcers N Prostate Hypertrophy N Bleeding Disorder N AIDS/HIV N Urinary Tract Infection N Back Problems N Allergies N Atrial Flutter N GERD/Reflux N Hepatitis N Autism Spectrum Disorder (ASD) N Breast Cancer N Hernia N Hypothyroidism Y Breast Problem N Genitourinary Disease N Deep Vein Thrombosis N Varicose Veins N Cystic Fibrosis N Hearing Loss N Developmental Problems N Carotid Disease N Vitamin D Deficiency N ADHD N Bladder or Kidney Problems N High Cholesterol N [place] N Valvular Abnormalities N Psychiatric/Mental Health Condition N Organ Transplant N Foot Deformity N Allergies/Hayfever N Dyslipidemia N Hyponatremia N Diabetic Eye Disease N Osteoporosis/Osteopenia N Back Pain N Proteinuria N Mental Illness N Neurological Problems N Ovarian Cancer N Bedwetting N Seizures/Epilepsy N Kidney Failure N Ocular trauma N Dementia N Diverticulitis N Sleep Apnea N Mental Problems N Warfarin Management N Osteoporosis N Gynecological History Statement/Question Response Abnormal Pap N Flow Light Date of LMP 05/30/2024 STIs/STDs N HPV Vaccine Y Duration of Flow (days) 2 Most Recent Mammogram Age at Menarche 14 Current Control Method None Frequency of Cycle (Q days) 28 Sexually Active? Y Menses Monthly N Date of Last Pap Smear 02/22/2019 Sexual Problems? Yes LMP Definite Desired Control Method IUD Obstetrics History GPAL:G 1 P 0 0 0 1 Type Value Multiple Births 0 Full Term 0 Induced 0 Spontaneous 0 Premature 0 Living 1 Ectopics 0 Total 1 Immunizations Vaccine Type Date Status Note Provider Abimael diaz and Address Organization Details Recorded Time HPV9 5 completed SURYA JAFFE MD Attn: Accounting,[address] [facility], [place], [address], [place] [facility] 06/04/2024 15:48:20 COVID-19, mRNA, LNP-S, PF, 30 mcg/0.3 mL dose 1 completed SURYA JAFFE MD Attn: Accounting,[address], [place], [address], [place] [facility] 06/04/2024 15:48:20 COVID-19, mRNA, LNP-S, PF, 30 mcg/0.3 mL dose 1 completed SURYA JAFFE MD Attn: Accounting,[address], [place], [address], [place] [facility] 06/04/2024 15:48:20 COVID-19, mRNA, LNP-S, PF, 30 mcg/0.3 mL dose 1 completed SURYA JAFFE MD Attn: Accounting,[address], [place], [address], [place] [facility] 06/04/2024 15:48:20 Tdap 3 completed SURYA JAFFE MD Attn: Accounting,[address], [place], [address], [place] [facility] 06/04/2024 15:48:20 varicella 9 completed SURYA JAFFE MD Attn: Accounting,[address], [place], [address], [place] [facility] 06/04/2024 15:48:20 OPV 7 completed SURYA JAFFE MD Attn: Accounting,[address], [place], [address], [place] [facility] 06/04/2024 15:48:20 OPV 7 completed SURYA JAFFE MD Attn: Accounting,[address], [place], [address], [place] [facility] 06/04/2024 15:48:20 DTP-Hib 7 completed SURYA JAFFE MD Attn: Accounting,[address], [place], [place], [address] [place] [address], [facility] 06/04/2024 15:48:20 DTP-Hib 7 completed SURYA JAFFE MD Attn: Accounting,[address] [facility], [place], [place], [address] [place] [address], [facility] - [facility] 06/04/2024 15:48:20 DTP-Hib 7 completed SURYA JAFFE MD Attn: Accounting,[address] [facility], [place], [address] [place] [address], [facility] 06/04/2024 15:48:20 Hep B, adolescent or pediatric 7 completed SURYA JAFFE MD Attn: Accounting,[address] [facility], [place], [address] [place] [address], [facility] - [facility] 06/04/2024 15:48:20 Hep B, adolescent or pediatric 7 completed SURYA JAFFE MD Attn: Accounting,[address] [facility], [place], [address] [place] [address], [facility] 06/04/2024 15:48:20 Hep B, adolescent or pediatric 7 completed SURYA JAFFE MD Attn: Accounting,[address] [facility], [place], [address] [place] [address], [facility] 06/04/2024 15:48:20 Hep A, pediatric, unspecified formulation 9 completed SURYA JAFFE MD Attn: Accounting,[address] [facility], [place], [address] [place] [address], [facility] 06/04/2024 15:48:20 meningococcal C conjugate 9 completed SURYA JAFFE MD Attn: Accounting,[address] [facility], [place], [address] [place] [address], [facility] 06/04/2024 15:48:20 meningococcal MCV4P 5 completed SURYA JAFFE MD Attn: Accounting,[address] [facility], [place], [address] [place] [address], [facility] 06/04/2024 15:48:20 Influenza, split virus, quadrivalent, PF 2 completed SURYA JAFFE MD Attn: Accounting,[address] [facility], [place], [address], [facility] - [facility] 06/04/2024 15:48:20 Influenza, split virus, quadrivalent, PF 3 completed SURYA JAFFE MD Attn: Accounting,[address] [facility], [place], [address], [facility] 06/04/2024 15:48:20 HPV9 9 completed Not Available [facility] 08/10/2019 02:51:02 HPV9 9 completed Not Available [facility] 08/10/2019 02:46:06 HPV9 9 completed Not Available [facility] 08/10/2019 02:38:48 Past Encounters Encounter ID Performer Location Encounter Start Date Encounter Closed Date Diagnosis/Indication Diagnosis SNOMED-CT Code Diagnosis ICD10 Code [id number] DEO Padilla [facility] (LITIGATION SECRETARY) [address] [place] [address] [id number] 01/15/2016 14:11:14 01/15/2016 15:40:30 Family planning education 733062137 Z30.02 [id number] Meryl Buckner [facility] (LITIGATION SECRETARY) [address] [place] [address] [id number] 0 02/25/2016 11:12:21 02/29/2016 11:23:29 Family planning education 588413161 Z30.02 [id number] Daren Buckner [facility] (LITIGATION SECRETARY) [address] [place] [address] [id number] 04/21/2016 14:49:52 04/27/2016 11:51:21 Initial prescription of oral contraception 956768797 Z30.066 [id number] Jose C Buckner [facility] (LITIGATION SECRETARY) [address] [place] [address] [id number] 09/12/2017 14:44:25 09/12/2017 16:01:18 Family planning surveillance 512840074 Z30.09 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 [address] [place] [address] [id number] 11/16/2017 14:39:05 11/16/2017 15:55:31 Surveillance of intrauterine device contraception done [id number] 79462 Z30.40 Family rosa nning surveillance 127610294 Z30.09 Exposure t o sexually transmissible disorder 581558470 Z20.2 Bacterial vaginosis 4197 68085 N76.0 [id number] [facility] ([facility]) [address] [place] [address] [id number] 09/20/2018 11:47:15 09/20/2018 15:25:25 Family planning surveillance 432337525 Z30.09 Active or passive immunization 719382314 Z23 Surveillan ce of intrauterine device contraception done 2977147394 87425 Z30.40 Exposure t o sexually transmissible disorder 315725991 Z20.2 [id number] DEO Puentes (LITIGATION SECRETARY) [address] [place] [address] [id number] 11/29/2018 09:45:15 11/30/2018 09:29:59 Acute urinary tract infection 191114942 N39.0 Family rosa nning surveillance 562387767 Z30.09 [id number] DEO Puentes (LITIGATION SECRETARY) [address] [place] [address] [id number] 0 02/21/2019 14:09:38 02/22/2019 13:03:00 Active or passive immunization 112839951 Z23 Family rosa nning surveillance 445455921 Z30.09 Gynecologi c examination 72153936 Z01.419 Z11.51 Surveillan ce of intrauterine device contraception done 3173747107 99041 Z30.40 Bacterial vaginosis 4197 99029 N76.0 Acute cervicitis 6878175 0 N72 Exposure t o sexually transmissible disorder 256674769 Z20.2 [id number] DEO Puentes [facility] (LITIGATION SECRETARY) [address] [place] [address] [id number] 0 07/03/2019 14:43:04 07/03/2019 16:48:49 Family planning surveillance 102318070 Z30.09 Acute cervicitis 4891229 0 N72 Surveillan ce of intrauterine device contraception done 1099449519 95048 Z30.40 Urinary incontinence 165 676974 R32 Active or passive immunization 539918386 Z23 [id number] Jose C Buckner [facility] (LITIGATION SECRETARY) [address] [place] [address] [id number] 0 03/10/2020 10:25:52 03/11/2020 07:14:27 Family planning surveillance 448937270 Z30.09 Gynecologi c examination 80984533 Z01.419 Z11.51 Candidiasis of vagina 72 839749 B37.3 Vulvitis 75974354 N76.2 Depressive disorder 3548 9007 F32.9 [id number] Jose C Buckner [facility] (LITIGATION SECRETARY) [address] [place] [address] [id number] 04/06/2020 14:15:18 04/07/2020 09:52:46 Depressive disorder [id number] F32.9 Family rosa nning surveillance [id number] Z30.09 Acne 81618306 L70.9 Anemia 216177375 D64.9 Surveillan ce of intrauterine device contraception done [id number] 14240 Z30.40 Vaginitis 63722448 N76.0 Exposure t o sexually transmissible disorder 119434516 Z20.2 [id number] KAILEY ROBLES (LITIGATION SECRETARY) [address] [place] [phone] 07/02/2020 16:02:07 07/14/2020 13:44:13 Replacement of intrauterine contraceptive device 53539923 Z30.745 [id number] KAILEY ROBLES HC (LITIGATION SECRETARY) [address] [place] [phone] 08/21/2020 15:38:54 08/22/2020 09:26:57 Surveillance of intrauterine device contraception done [id number] 05028 Z30.40 [id number] Get Buckner (LITIGATION SECRETARY) [address] [place] [address] 06/08/2021 15:49:53 06/10/2021 10:05:33 Postcoital bleeding 77354297 N93.0 Dysuria 17572575 R30.9 Lower abdominal pain 545 79444 R10.30 [id number] MD Marychuy RIOJASn 14 IM [address] [facility] [address] [place] [address] 06/04/2024 14:36:15 06/18/2024 09:48:25 Dysuria 31051629 R30.0 Screening for malignant neoplasm of cervix 457453320 Z12.4 Abnormal u terine bleeding 2619685912 9100 N93.8 Adult heal th examination 430908732 Z00.00 Inflammati on of cervix 23338676 N72 Health Concerns Section Related Observation LastModified by Organization Detai ls LastModified Time None Recorded Concern Status LastModified by Organization Details LastModified Time None Recorded Advance Directives Directive N: Payers Encounter Date Sequence Insurance Name Policy Number Policy De Covered Member ID De Member ID Guarantor Name 04/06/2020 1 [employer] [place] ([place] [id number] Cee Aldridge [id number] Cee March 07/02/2020 1 [employer] [place] [id number] Cee Aldridge [id number] Cee March 08/21/2020 1 [employer] [place] [id number] Cee Aldridge [id number] Cee March 06/08/2021 1 [employer] [place] [id number] Cee Aldridge [id number] Cee March 06/04/2024 1 [facility] Donal March [id number] Cee March Notes Date Note Type Note Provider Name and Address Organization Details Recorded Time 04/06/2020 text/html OCP CheckReporte d bypatient.Associate d Symptoms:regular menses; no BTB menses; no side effects 24yo presenting for family planning discussion. Currently has Aurora and is interested in Kyleena IUD due to same size but longer duration. Patient complaining of hormonal acne from Aurora and would like to have it controlled. Pt planning for children in near future. Jose C Caba null, [place] - [facility] 04/06/2020 18:02:09 07/02/2020 text/html 24yo presenting for IUD replacement. Currently has Aurora IUD but would like to switch to 5 year Kyleena. She has no complaints with IUD. No concerns today. Denies abnormal discharge, pelvic pain, n/v, fevers. LMP 12. KAILEY ROBLES Attn: [address] [place], [address], [facility] - [facility] 07/09/2020 15:22:47 08/21/2020 text/html 24yo nulligravid a presenting for IUD check. She is currently using Kyleena, placed 07/02/20. LMP 12. She reports some spotting 2x/day for the last three weeks. Pt denies abdominal pain, fever, chills, discharge, or any other complaints at this time. KAILEY ROBLES Attn: Accounting[address] [facility], [place], [address], [facility] - [facility] 08/24/2020 17:47:09 06/08/2021 text/html Patient is a 25 year old who presents with multiple concerns Patient reports intermitent bilateral RLQ and LLQ abdominal pain localized superior and medial to her ASIS. Pain is occasionally associated with deep penetration with intercourse but is largely unpredictable. No association with movement, changes in exercise/activity, association with assumed monthly ovulation (rare to absent menses with IUD) , urination, or bowel movement. Patient concerned about ovarian pathology. Patient also reports 2 episodes of painless vaginal bleeding. 3-4 months apart, associated with intercourse. Lastly she report her urine smells like popcorn x 3 weeks on and off. She reports dysuria over the last x 2 days. No other complaints today Get Suad null, [place] - [facility] 06/09/2021 09:23:44 06/04/2024 text/html 28yo F PMH of AD HD, depression & anxiety, IBS-C presents to clinic today to establish care ObGyn Hx [id number] Pap: 2019 was WNL PHQ-9: 12 Medicationsas listed VaccinesUTD SHOccupation: radiology techLiving situation: lives at home with and daughter feels safeSmoker: none, no illicit drugEtOh: rarely FHhead and neck cancer, HTN, HLD, thyroid ROSFever/chills: noneWeight change: noneVision change: noneHeadache: no concernsEar, nose throat concerns: allergy relatedChest pain: noneSOB/cough: noneBowel/bladder: IBS-CSkin concerns: noneMood: stableAllergies: seasonal Today's concerns:- period irregularity: has inconsistent period flows they occur every 28-32 days however one day she can be spotting the next day heavy and clot filled followed by normal flow, not usually painful unless she is passing clotspreviously period lasted 4 days always medium flowwould like her hormone levels checked - is also having pain with urination, lasting about a week denies any discharge but is endorsing itching and swelling as well as increased urinary frequency SURYA JAFFE MD Attn: Accounting[address] [place], [address], [facility] - [facility] 06/05/2024 16:42:45 OBGyn Episode Ob Episode Information Episode Created Date Number of Fetuses Patient Bloodtype Patient rh Status Prepregnancy Weight lbs Domestic Partner Domestic Partner Phone Father Name Food Processor Status 06/04/20 24 1 CLOSED Fetus Data First Name Last Name Admitted to NICU Weight (g) Sex Living Outcome Pediatric Complications Fetus ID Race Codes Race Delivery Type F [id number] Vaginal Ayleen Calculation AYLEEN Calculation Method Initial Ayleen Date Initial Exam Date Initial Exam Provider Initial Ultrasound Date Last Menstrual Period Date Ultra Sound Weeks Gestation Conception by IVF Embryo Age at Transfer Date of Transfer 0 Eighteen To Twenty Week Ayleen Update Ultra Sound Date Fundal Height At Umbil Quickening Date Ultra Sound Latest Weeks Gestation Final Ayleen Confirmed By Final Ayleen Confirmed Date Final Ayleen Date Ultra Sound Latest Days Gestation 0 0 Menstrual History Last Menstrual Date Menses Monthly On Bcp Conception Prior Menses Frequency Hcg Plus Date Menarche Onset Age Delivery Information Delivery Date Delivery Type Labor Anesthesia Weeks Gestation Incision Type Labor Labor Length Hrs Delivered By Post Complications Tubal Sterilization Discharge Date Comments 3 Discharge Information Feeding Method Contraceptive Method Maternal HG B and HCT Levels
--- OUTSIDE RECORDS SUMMARY | 2024-07-28 05:14 | XMS_ITS | Encounter Summary ---
Author Organization [facility] Address [address] [place] [address] Care Team Providers Care Rn Medicare Name Role Phone Bessy Alcaraz NP Primary Care Provider + Referring, Unknown MD Unavailable Unavailabl e Encounter Details Date Type Department Care Team (Latest Contact Info) Description 06/01/2024 6:32 PM LVN LPN - 06/01/2024 11:59 PM LVN LPN Hospital Encounter [address] [address] Acute bacterial sinusitis; Sore throat Discharge Disposition: Discharge to home or self care Social History Tobacco Use Types Packs/Day Years Used Date Smoking Tobacco: Never Smokeless Tobacco: Never Comments No Sex and Gender Information Value Date Recorded Sex Assigned at Not on file Legal Sex Female 10:43 AM LVN LPN Gender Identity Not on file Sexual Orientation [...] daily Concerta 18 mg CR tablet 07/05/2023 dextroamphetamin e-amphetamine XR (ADDERALL XR) 25 mg 24 hr capsule Take 1 capsule (25 mg total) by mouth early learning teacher before breakfast 05/14/2024 amoxicillin-clav ulanate (AUGMENTIN) 875-125 mg per tabletIndication s:Acute bacterial sinusitis Take 1 tablet by mouth 2 (two) times a day for 7 days 14 tablet 06/01/2024 4 documented as of this encounter Discharge Disposition Disposition Code Departure Means Destination Discharge to home or self care documented in this encounter Plan of Treatment Not on file documented as of this encounter Procedures Procedure Name Priority Date/Time Associated Diagnosis Comments THROAT CULTURE Routine 06/01/2024 6:32 PM LVN LPN Acute bacterial sinusitis Sore throat documented in this encounter Results * Throat culture Throat (06/01/2024 6:32 PM LVN LPN) Report Final Report: No growth of pathogens. Comment:Testing performed by : [facility], [address] [place]., [address] Throat 06/01/2024 6:32 PM LVN LPN 06/02/2024 12:58 AM LVN LPN Narrative BABAR Smith 06/02/2024 8:49 PM LVN LPN Testing performed by [facility] Laboratory ([phone]). us Latrice Pugh NP LAB MICROBIOLOGY - GENERAL ORD ERABLES Final Result BABAR [address] Department [place] [address] documented in this encounter Visit Diagnoses Diagnosis Acute bacterial sinusitis Acute sinusitis, unspecified Sore throat Acute pharyngitis documented in this encounter Care Teams Rn Medicare Relationship Specialty Start Date End Date Bessy Alcaraz NP [address] [address] PCP - General Nurse Practitioner 09/19/22 Referring, Unknown, 09/19/22 documented as of this encounter
--- OUTSIDE RECORDS SUMMARY | 2024-07-28 05:14 | XMS_ITS | Continuity of Care Document ---
Author Organization [facility] Kyree TAMAYO [address] [facility] [address] [place] [address] Care Team Providers Care Refractory Products Supervisor Name Role Phone YEISON BENAVIDES Primary Care Provider Unavailabl e Assessment No assessment recorded. Plan of Treatment Reminders Order Date Submit Date Provider Last Modified By Organization Details Last Modified Time Details Appointments None recorded. Lab urinalysis , dipstick 2023 In-Office Order, Internal Use Only DO Not Attach Compendium DO Not Attach Compendium, Do Not Delete/merge, [id number] 4 15:56:02 vaginal pathogens panel, SUNNY+probe, vaginal fluid 2023 024 R[facility], [address], [place], [address], 4 06:21:36 TSH, ultra-sens itive, serum 2023 024 RENZO [facility], [address] [facility] [address], [place], [address], 4 06:23:36 prolactin, serum 2023 024 RENZO [facility], [address] [facility] [address], [place], [address], 4 06:23:37 unlisted lab - DHEA-S+17- ohp+tesd/T 2023 024 RENZO [facility], [address], [place], [address], 4 06:23:35 cytology report, thin prep, smear or scraping, cervical or vaginal 2023 [place] [facility], [address], [address] [address], [place], [address], 4 10:15:32 Referral None recorded. Procedures None recorded. Surgeries None recorded. Imaging US, pelvis, complete 2023 [facility], [address] [place] [address] , [place], [address], 4 02:58:35 Medication Orders None recorded. Patient TargetsNo targets recorded. Patient Instructions Encounter Date Encounter Id Patient Instructions Last Modified By Organization Details Last Modified Time 06/04/2024 [id number] painful urinatio n (dysuria): care instructions augabi Not available 06/04/2024 15:56:02 Attending Physician Attestation I personally saw and examined the patient with the resident. I have reviewed the documentation and agree with the history, physical findings, work-up, and medical decision making as recorded. Mandi Jaffe MD [email or web address] Not available 06/04/2024 15:51:33 Reason for Referral None Reported. Results Created Date Observation Date Name Description Value Unit Range Abnormal Flag Note LastModifiedBy Organization Detail LastModifiedTime 06/04/2006/04/2024 urina lysis , dipst ick Leukocytes Negati ve Not Available In-Office Order Internal Use Only DO Not Attach Compendium DO Not Attach Compendium, Do Not Delete/merge, [id number] 06/04/2024 15:28:27 06/04/20 24 06/04/2024 urina lysis , dipst ick Nitrite negati ve Not Available In-Office Order Internal Use Only DO Not Attach Compendium DO Not Attach Compendium, Do Not Delete/merge, [id number] 06/04/2024 15:28:27 06/04/20 24 06/04/2024 urina lysis , dipst ick Urobilinogen .2 Not Available In-Of fice Order Internal Use Only DO Not Attach Compendium DO Not Attach Compendium, Do Not Delete/merge, [id number] 06/04/2024 15:28:27 06/04/20 24 06/04/2024 urina lysis , dipst ick Protein Negati ve Not Available In-Office Order Internal Use Only DO Not Attach Compendium DO Not Attach Compendium, Do Not Delete/merge, [id number] 06/04/2024 15:28:27 06/04/20 24 06/04/2024 urina lysis , dipst ick pH 5.5 Not Available In-Office Order Internal Use Only DO Not Attach Compendium DO Not Attach Compendium, Do Not Delete/merge, [id number] 06/04/2024 15:28:27 06/04/20 24 06/04/2024 urina lysis , dipst ick Blood Negati ve Not Available In-Office Order Internal Use Only DO Not Attach Compendium DO Not Attach Compendium, Do Not Delete/merge, [id number] 06/04/2024 15:28:27 06/04/20 24 06/04/2024 urina lysis , dipst ick Specific [place] 1.025 Not Available In-Off ice Order Internal Use Only DO Not Attach Compendium DO Not Attach Compendium, Do Not Delete/merge, [id number] 06/04/2024 15:28:27 06/04/20 24 06/04/2024 urina lysis , dipst ick Ketone Negati ve Not Available In-Office Order Internal Use Only DO Not Attach Compendium DO Not Attach Compendium, Do Not Delete/merge, [id number] 06/04/2024 15:28:27 06/04/20 24 06/04/2024 urina lysis , dipst ick Bilirubin Negati ve Not Available In-Office Order Internal Use Only DO Not Attach Compendium DO Not Attach Compendium, Do Not Delete/merge, [id number] 06/04/2024 15:28:27 06/04/20 24 06/04/2024 urina lysis , dipst ick Glucose Negati ve Not Available In-Office Order Internal Use Only DO Not Attach Compendium DO Not Attach Compendium, Do Not Delete/merge, [id number] 06/04/2024 15:28:27 06/04/20 24 06/04/2024 urina lysis , dipst ick Appearance Slight ly Cloudy Not Available In-Office Order Internal Use Only DO Not Attach Compendium DO Not Attach Compendium, Do Not Delete/merge, [id number] 06/04/2024 15:28:27 06/04/2006/04/2024 urina lysis , dipst ick Color Yellow Not Available In-Office Order Internal Use Only DO Not Attach Compendium DO Not Attach Compendium, Do Not Delete/merge, [id number] 06/04/2024 15:28:27 07/06/20 24 07/01/2024 US, pelvi s, compl ete No observ ation record ed. [facility] (Radiology) [address] [place], [address], 07/09/2024 12:20:25 Result Notes None recorded. Problems Name Problem SNOMED Code Status Onset Date Resolution Date Notes Provider Name and Address Organization Details Recorded Time Acute urinary tract infection 036550518 Completed 201806/04/2024 Yeison Benavides MD Attn: Deborah lyon,[address] [facility], [place], [address], [facility] - [facility] 4 14:48:29 Bacterial vaginosis 057934960 Completed 201806/04/2024 Yeison Benavides MD Attn: Deborah g,[address] [facility], [place], [address], [place] [facility] 4 14:48:31 Acute cerviciti s 83802261 Completed 201806/04/2024 Yeison Benavides MD Attn: Deborah g,[address] [facility], [place], [address], [place] [facility] 4 14:48:26 Irritable bowel syndrome 69260017 Completed 201806/04/2024 Yeison Benavides MD Attn: Deborah lyon,[address] [facility], [place], [address], [facility] - [facility] 4 14:48:36 Depressiv e disorder 11592137 Active 2019 Yeison Benavides MD Attn: Accountin g,[address] [facility], [place], [address], [place] [facility] 4 14:48:41 Vaginitis 09294487 Completed 201906/04/2024 Yeison Benavides MD Attn: Accountzachary g,[address] [facility], [place], [address], [place] [facility] 4 14:48:46 Acne 59780220 Completed 201906/04/2024 Yeison Benavides MD Attn: Accountin g,[address] [facility], [place], [address], [place] [facility] 4 14:48:23 Past history of pre-eclam psia 126491703649 100 Active 2023 Yeison Benavides MD Attn: Accountzachary g,[address] [facility], [place], [address], [place] [facility] 4 15:50:51 Inflammat ion of cervix 72836009 Active 2023 Yeison Benavides MD Attn: Accountzachary g,[address] [facility], [place], [address], [place] [facility] 4 16:10:50 Dysuria 62021014 Active 2023 Yeison Benavides MD Attn: Tgzachary g,[address] [facility], [place], [address], [place] [facility] 4 16:10:53 Abnormal uterine bleeding 647964911308 00 Active 2023 Yeison Benavides MD Attn: Accountin g,[address] [facility], [place], [address], [place] [facility] 4 16:10:56 Adult health examinati on Active 2023 Yeison Benavides MD Attn: Accountin g,[address] [facility], [place], [address], [place] [facility] 4 16:10:58 Problem Notes None recorded. Procedures Surgical History Date Name Laterality Status Provider Name and Address Organization Details Recorded Time 07/02/20 20 IUD Replacement completed KAILEY ROBLES Attn: Accounting,[address] [facility], [place], [address], [place] 07/02/2020 16:36:44 02/23/20 19 Date of Last Pap Smear completed Megan Armendariz [place] [facility] 04/06/2020 14:39:16 09/19/19 18 IUD Insertion completed Jose C Caba [place] [facility] 09/19/2017 17:19:35 Tonsillectomy completed Tracy Townsend [place] [facility] 01/19/2016 15:07:30 Imaging Results None recorded. Procedure Notes None recorded. Medical Equipment None Reported. Allergies Allergen ID Allergen Name Allergen Category Reaction Reaction Severity Criticality Documentation Date Start Date Code Code System Note Provider Name and Address Organization Details Recorded Time 165969 NuvaRing medicatio n edema severe Not available 09/12/2017 11281 9 RxNorm Tracy Townsend MA null, [place] 8 15:27:10 311723 latex environme nt,medica tion other severe Not available 09/19/2017 33400 91 RxNorm pt state s react ion to latex condo ms, vagin al abdoulll ing, cb-rm a Megan Armendariz MA null, [place] 8 15:16:02 446049 Monistat- 1 medicatio n swelling Not available Not available 06/04/2024 36695 6 RxNorm LORENA Hawthorne null, [place] 4 14:53:03 Medications Name Sig Start Date [...] Not Available Vitals Date Recorded Body height Body mass index (BMI) Body weight Respiratory rate Body temperature Oxygen saturation Oxygen saturation in Arterial blood by Pulse oximetry Heart rate Systolic blood pressure Diastolic blood pressure Provider Name and Address Organization Details Last Updated DateTime 4 152.4 cm 35.2 kg/m2 90273.1 3 g 18 /min 98.2 [degF] 98 % 98 % 106 /min 120 mm[Hg] 83 mm[Hg] LORENA Hawthorne [place] - [facility] 4 15:05:25 Social History Question Answer Notes LastModified by Organizat ion Details LastModified Time Tobacco Smoking Status Never Smoker DEO Puentes, [place] 01/19/2016 15:07:31 Do You Have An Advance Directive? No Information not available 04/21/2016 What Is Your Level Of Alcohol Consumption? None Information not available 06/04/2024 Is Blood Transfusion Acceptable In An Emergency? Yes Information not available 04/21/2016 What Is Your Level Of Caffeine Consumption? Occasional Information not available 09/20/2018 How Much Tobacco Do You Chew? None [email or web address] Information not available 01/19/2016 In The 14 [...] Type Of Diet Are You Following? REGULAR [email or web address] Information not available 01/19/2016 Which Illicit Or Recreational Drugs Have You Used? Denies [email or web address] Information not available 01/19/2016 Do You Or Have You Ever Used E-cigarettes Or Vape? 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 With Others [email or web address] Information not available 01/19/2016 What Was The Date Of Your Most Recent Tobacco Screening? 06/04/2024 Information not available 06/04/2024 How Many Children Do You Have? 0 Information not available 01/19/2016 Performs Monthly Self-breast Exam? No Information no t available 04/21/2016 Do You Have Any Pets? Yes 1 Dog Information not available 06/08/2021 Do You Use Protection During Sex? No Information not available 04/21/2016 What Is Your Relationship Status? Single [email or web address] Information not available 01/19/2016 Do You Use Your Seat Belt Or Car Seat Routinely? Yes Information not available 06/08/2021 Seat Belts Used Routinely Yes [email or web address] Information not available 01/19/2016 Are You Sexually [...] How Much Tobacco Do You Smoke? No Information not available 01/19/2016 General Stress Level [...] Many Years Have You Smoked Tobacco? 0 [email or web address] Information not available 01/19/2016 Do You Or Have You Ever Used Any Other Forms Of Tobacco Or Nicotine? No Information not available 06/04/2024 Sex: Unknown Functional Status Question Answer Note LastModified by Organizat ion Details LastModified Time What is your exercise level? Occasional [email or web address] Information not available 01/19/2016 Mental Status None recorded. Family History Relationship Description Onset Age of this Age Resolved Age Notes LastModified by Organization Details LastModified Time Mother Alcoholism [email or web address] Not availa ble 04/21/2016 16:09:19 Father Adenocarcino ma [email or web address] Not available 2015 16:09:19 Notes:06/04/24 Medical History Condition Response Coronary Artery Disease N Blood Diseases N Kidney Cyst N Hyperthyroidism N MRSA N Blood Transfusion N Blood disorders N Emphysema N Depression Y COPD N Blood Clots N Pneumonia N Peripheral Arterial Disease N Premature N Edema N TIA N Headaches/Migraines N Anxiety Disorder Y Obesity N Polyps N Infertility N Acid Reflux (GERD) N Hematuria N [...] N Thyroid Disease N Colon Cancer N Lung Disease N Glaucoma N Developmental or Behavioral Disorders N Bipolar N Pacemaker N Diverticulitis/Diverticulosis N Orthopedic Problems N Anesthesia Complications N Orthotics N Head Injury/Concussion N Congenital Anomalies N [place] Bite N Chronic Kidney Disease N Endometriosis N Liver Disease N Schizophrenia N Dialysis N Speech Delay N Chronic Obstructive Pulmonary Disease N Parkinson's Disease N Thyroid Problems N GI Problems N Developmental Delay N Anemia N Multiple Sclerosis N Immune System Disorder N Colon Polyps N Heart Attack ([place]) N Diabetes N Cardiomyopathy N Blood Transfusions [...] N Kidney Failure N Ocular trauma N Diverticulitis N Dementia N Sleep Apnea N Mental Problems N [...] Immunizations Vaccine Type Date Status Note Provider Nam e and Address Organization Details Recorded Time HPV9 5 completed MANDI JAFFE MD Attn: Accounting,[address] [place], [address] [place] [address], [place] [facility] 06/04/2024 15:48:20 COVID-19, mRNA, LNP-S, PF, 30 mcg/0.3 mL dose 1 completed MANDI JAFFE MD Attn: Accounting,[address] [place], [address] [place] [address], [place] [facility] 06/04/2024 15:48:20 COVID-19, mRNA, LNP-S, PF, 30 mcg/0.3 mL dose 1 completed MANDI JAFFE MD Attn: Accounting,[address] [place], [address] [place] [address], [place] [facility] 06/04/2024 15:48:20 COVID-19, mRNA, LNP-S, PF, 30 mcg/0.3 mL dose 1 completed MANDI JAFFE MD Attn: Accounting,[address] [place], [address] [place] [address], [place] [facility] 06/04/2024 15:48:20 Tdap 3 completed MANDI JAFFE MD Attn: Accounting,[address], [place], [address], [place] [facility] 06/04/2024 15:48:20 varicella 9 completed MANDI JAFFE MD Attn: Accounting,[address], [place], [address], [place] [facility] 06/04/2024 15:48:20 OPV 7 completed MANDI JAFFE MD Attn: Accounting,[address], [place], [address], [place] [facility] 06/04/2024 15:48:20 OPV 7 completed MANDI JAFFE MD Attn: Accounting,[address], [place], [place], [address] [place] [address], [place] [facility] 06/04/2024 15:48:20 DTP-Hib 7 completed MANDI JAFFE MD Attn: Accounting,[address], [place], [place], [address] [place] [address], [place] [facility] 06/04/2024 15:48:20 DTP-Hib 7 completed MANDI JAFFE MD Attn: Accounting,[address], [place], [place], [address] [place] [address], [place] [facility] 06/04/2024 15:48:20 DTP-Hib 7 completed MANDI JAFFE MD Attn: Accounting,[address], [place], [address] [place] [address], [place] [facility] 06/04/2024 15:48:20 Hep B, adolescent or pediatric 7 completed MANDI JAFFE MD Attn: Accounting,[address], [place], [place], [address] [place] [address], [place] [facility] 06/04/2024 15:48:20 Hep B, adolescent or pediatric 7 completed MANDI JAFFE MD Attn: Accounting,[address], [place], [address], [place] [facility] 06/04/2024 15:48:20 Hep B, adolescent or pediatric 7 completed MANDI JAFFE MD Attn: Accounting,[address] [facility], [place], [address], [facility] - [place] 06/04/2024 15:48:20 Hep A, pediatric, unspecified formulation 9 completed MANDI JAFFE MD Attn: Accounting,[address] [facility], [place], [address], [facility] - [facility] 06/04/2024 15:48:20 meningococcal C conjugate 9 completed MNADI JAFFE MD Attn: Accounting,[address] [facility], [place], [address], [facility] - [facility] 06/04/2024 15:48:20 meningococcal MCV4P 5 completed MANDI JAFFE MD Attn: Accounting,[address] [facility], [place], [address], [facility] - [facility] 06/04/2024 15:48:20 Influenza, split virus, quadrivalent, PF 2 completed MANDI JAFFE MD Attn: Accounting,[address] [facility], [place], [address], [facility] - [facility] 06/04/2024 15:48:20 Influenza, split virus, quadrivalent, PF 3 completed MANDI JAFFE MD Attn: Accounting,[address] [facility], [place], [address], [facility] - [facility] 06/04/2024 15:48:20 HPV9 9 completed Not Available [facility] 08/10/2019 02:51:02 HPV9 9 completed Not Available [facility] 08/10/2019 02:46:06 HPV9 9 completed Not Available [facility] 08/10/2019 02:38:48 Past Encounters Encounter ID Performer Location Encounter Start Date Encounter Closed Date Diagnosis/Indication Diagnosis SNOMED-CT Code Diagnosis ICD10 Code [id number] MD Kyree RIOJAS [address] [facility] [place] [address] 06/04/2024 14:36:15 06/18/2024 09:48:25 Dysuria 76277525 R30.0 Screening for malignant neoplasm of cervix 793839043 Z12.4 Abnormal u terine bleeding 1261430810 9100 N93.8 Adult heal th examination 772874792 Z00.00 Inflammati on of cervix 41680958 N72 Health Concerns Section Related Observation LastModified by Organization Detai ls LastModified Time None Recorded Concern Status LastModified by Organization Details LastModified Time None Recorded Payers Encounter Date Sequence Insurance Name Policy Number Policy De Covered Member ID De Member ID Guarantor Name 06/04/2024 1 [facility] Donal March [id number] Cee March Notes Date Note Type Note Provider Name and Address Organization Details Recorded Time 06/04/2024 text/html 28yo F PMH of ADHD, depression & anxiety, IBS-C presents to clinic today to establish care ObGyn Hx [id number] Pap: 2019 was WNL PHQ-9: 12 Medicationsas [...] swelling as well as increased urinary frequency MANDI JAFFE MD Attn: Accounting,[address] [facility], [place], [address], [place] 06/05/2024 16:42:45 OBGyn Episode No OBEpisode recorded.
--- OUTSIDE RECORDS SUMMARY | 2024-07-28 05:15 | XMS_ITS | Encounter Summary ---
Author Organization [facility] [employer] [facility] Address [address] [place] [address] Care Team Providers Care Parakeet Raiser Name Role Phone Brad Chan MD Primary Care Provider Reason for Visit * Reason Comments Establish Care New patient care /Ir on Deficiency Encounter Details Date Type Department Care Team (Late st Contact Info) Description 04/27/2020 3:00 PM CDT Office Visit [facility] Oncology and Hematology - Balbir [address] [facility] [address] [place] [address] Joe Callejas MD [address] [facility] [address] [place] [address] Chronic anemia (Primary Dx) Social History Tobacco Use Types Packs/Day Years Used Date Smoking Tobacco: Never Smokeless Tobacco: Never Alcohol Use Standard Drinks/Week Comments Yes 0 (1 standard drink = 0.6 oz pur e alcohol) OCCASIONLLY Sex and Gender Information Value Date Recorded Sex Assigned at Not on file Gender Identity Not on file Sexual Orientation Not on file COVID-19 Exposure Response Date Recorded In the last month, have you been in contact with someone who was confirmed or suspected to have Coronavirus / COVID-19? No / Unsure 04/27/2020 2:28 PM CDT documented as of this encounter Last Filed Vital Signs Vital Sign Reading Time Taken Comments Blood Pressure 126/69 04/27/2020 3:12 PM CDT Pulse 68 04/27/2020 3:12 PM CDT Temperature 36.8 ??C (98.3 ??F) 04/27/2020 3:12 PM CD T Respiratory Rate - - Oxygen Saturation 98% 04/27/2020 3:12 PM CDT Inhaled Oxygen Concentration - - Weight 83.7 kg (184 lb 9.6 oz) 04/27/2020 3:12 P M CDT Height 152.4 cm (5') 04/27/2020 3:12 PM CDT Body Mass Index 36.05 04/27/2020 3:12 PM CDT documented in this encounter Progress Notes * Joe Callejas MD - 04/27/2020 5:07 PM CDT Hematology-oncology consult Note Requesting Physician Brad Chan MD Primary Care Physician Brad Chan MD Problem list There is no problem list on file for this patient. Previous TREATMENT ? Measurable Disease ? Reason for Visit Cee Aldridge is a 24 y.o. female who was referred for consultation for anemia. History of present illness This is a 24-year-old pleasant slightly obese female with history of gastritis and irritable bowel syndrome was seen by the director of category management for the cardiac murmur. According the patient labs showed that she has iron deficiency anemia. She has been complaining of tiredness and fatigue and sleepiness and drowsiness. She denies any bleeding and bruising. She is taking oral contraceptive for last 2 and half years and only have spotting rather than menstrual bleeding. She denies being a vegetarian. She gained 25 pound weight in last 6 months duration. She has intermittent diarrhea and constipation. She is not taking oral iron. Denies any other complaints. Past Medical History Past Medical History: Diagnosis Date ??? Gastric disorder GASTRITUS ??? IBS (irritable bowel syndrome) ??? Nutritional anemia, unspecified ??? Psychiatric disorder Surgical History Past Surgical History: Procedure Laterality Date ??? HX COLONOSCOPY 2 total ??? HX TONSILLECTOMY ??? ORAL FUNCTION THERAPY Pt. HAD TOOTHE SURGICLLY REMOVED. Medications Current Outpatient Medications Medication Sig Dispense Refill ??? escitalopram oxalate (LEXAPRO) 20 mg tablet every morning. ??? levonorgestreL (ROSEMARIE) 14 mcg/24 hrs (3 yrs) 13.5 mg IUD by Intrauterine route. No current facility-administered medications for this visit. Allergies No Known Allergies Immunizations: There is no immunization history on file for this patient. Family History Family History Problem Relation Name Age of Onset ??? Cancer Father ??? Heart Disease Father ??? Healthy Brother ??? Healthy Brother Social History Social History Tobacco Use ??? Smoking status: Never Smoker ??? Smokeless tobacco: Never Used Substance Use Topics ??? Alcohol use: Yes Comment: OCCASIONLLY Review of Systems Constitutional: No fever; no night sweats; no anorexia; complain of tiredness and fatigue and 25 pound weight gain NEENT: No headache; no change in vision; no change in hearing; no sore throat; no dysphagia Respiratory: No shortness of breath; no pleuritic chest pain; no cough; no hemoptysis Cardiac: No cardiac-like chest pain; no palpitations; no orthopnea; no PND; no SMITH Breasts: No tenderness; no masses GI: No abdominal pain; no nausea; no vomiting; intermittent diarrhea and constipation, no hematochezia; no melena : No dysuria; no frequency; no hesitancy; no hematuria RN LIAISON: Musculosketetal: no bone pain; no arthralgia; no joint swelling; no myalgia; Skin: no pruritis; no rash; no petechiae; no ecchymoses Endocrine: no polydipsia; no polyuria; no unusual weight gain Neuro: No headache; no change in vision; no sensory changes; no muscle weakness; no confusion; no seizures Psych: no anxiety; no depression; Physical Exam Vitals: As per nursing note Constitutional: Well developed, well nourished, no acute distress, non-toxic appearance Teeth and gum. No signs of infection or swelling. Eyes: PERRL, conjunctiva normal HEENT: Atraumatic, external ears normal, nose normal, oropharynx moist, no pharyngeal exudates. no sinus tenderness Neck- normal range of motion, no tenderness, supple Respiratory: No respiratory distress, normal breath sounds, no rales, no wheezing Cardiovascular: Normal rate, normal rhythm, no murmurs, no gallops, no rubs GI: Soft, nondistended, normal bowel sounds, nontender, no splenomegaly, no hepatomegaly, no mass, no rebound, no guarding : No costovertebral angle tenderness Musculoskeletal: No edema, no tenderness, no deformities. Back- no tenderness Integument: Well hydrated, no rash, Digits and nails inspection normal Lymphatic: No lymphadenopathy noted Neurologic: Alert & oriented x 3, CN 2-12 normal, normal motor function, normal sensory function, no focal deficits noted Psychiatric: Speech and behavior appropriate ? labs No results found for this or any previous visit (from the past 24 hour(s)). Labs from March 23, 2020 showed iron 86 iron saturation 24% calcium 9.2 creatinine 0.6 vitamin [id number] ferritin 73. Pathology ? Imaging & Other Studies Performance Status? Assessment / Plan: ? Iron deficiency anemia. This is a 24-year-old female who has a history of irritable bowelsyndrome as well as gastritis. She also has a history of cardiac murmur and was evaluated by the director of category management. According the patient they found that she had significant anemia. I do not have a CBC for my review. Iron studies from March 23 showed normal iron level. She has been quite symptomatic with tiredness and fatigue and dizziness and drowsiness. She denies any bleeding including melena hematochezia. She has menstrual spotting without any bleeding as she has been taking oral contraceptives. At this time I will order complete work-up for anemia that would include CBC with differential, CMP, iron panel, ferritin, vitamin B12 level and folic acid level. I will also check soluble transferrin receptor. Currently she is not taking oral iron. She has had 2 colonoscopies done and last one was 3 years ago with her history of irritable bowel syndrome. I will see her back in 2 weeks to discuss findings and further recommendations. I have answered all the questions to patient satisfaction. Thank you very much for allowing me to participate in Cee Aldridge's evaluation and management. Please feel free to contact if I can be of any further assistance in your patient???s care requiring hematology or oncology evaluation. Sincerely, ? ? Joe Callejas M.D. cell TOBACCO COUNSELING She is not a tobacco user. Joe Callejas MD ,04/27/2020 5:07 PM ? Total time spent 80 minutes, two third of the total time spent counseling patient [id number]. CC:?Brad Chan MD documented in this encounter Plan of Treatment Scheduled Orders Name Type Priority Associated Diagnoses Orde r Schedule RETICULOCYTES Lab Routine Chronic anemia Ordered: 04/27/2020 VITAMIN B12 AND FOLATE Lab Routine Chronic anemia Ordered: 04/27/2020 LACTATE DEHYDROGENASE Lab Routine Chronic anemia Ordered: 04/27/2020 documented as of this encounter Procedures Procedure Name Priority Date/Time Associated Diagnosis Comments TRANSFERRIN RECEPTOR TFR SOLUBLE Routine 04/27/20 20 Chronic anemia IRON, TIBC, AND PERCENT SATURATION Routine 2019 Chronic anemia CBC WITH DIFFERENTIAL Routine 04/27/2020 Chronic anemia FERRITIN Routine 04/27/2020 Chronic anemia COMPREHENSIVE METABOLIC PANEL Routine 04/27/2020 Chronic anemia documented in this encounter Results * TRANSFERRIN RECEPTOR TFR SOLUBLE (04/27/2020) Blood Joe Callejas MD CHEMISTRY ORDERABLES Performing Organization Address City/[facility] Co de Phone Number NON [facility] * IRON, TIBC, AND PERCENT SATURATION (04/27/2020) Blood Joe Callejas MD CHEMISTRY ORDERABLES Performing Organization Address City/[facility]/ZIP Co de Phone Number NON [facility] * FERRITIN (04/27/2020) Blood Joe Callejas MD CHEMISTRY ORDERABLES Performing Organization Address City/[facility]/ZIP Co de Phone Number NON [facility] * COMPREHENSIVE METABOLIC PANEL (04/27/2020) Blood Joe Callejas MD CHEMISTRY ORDERABLES NON [facility] * CBC WITH DIFFERENTIAL (04/27/2020) Blood Joe Callejas MD HEMATOLOGY ORDERABLE S Performing Organization Address City/[facility]/ZIP Co de Phone Number NON [facility] documented in this encounter Visit Diagnoses Diagnosis Chronic anemia- Primary Anemia, unspecified documented in this encounter Care Teams Parakeet Raiser Relationship Specialty Start Date End Date Brad Chan MD [address] [place] [phone] PCP - General Emergency Medicine 04/10/20 documented as of this encounter
--- OUTSIDE RECORDS SUMMARY | 2024-07-28 05:15 | XMS_ITS | Clinical Summary ---
Author Organization [facility] Address [address] [facility] [place] [address] Care Team Providers Care Robotype Operator Name Role Phone Brad Chan MD Primary Care Provider Allergies No known active allergies Medications Medication Sig Dispensed Refills Start Date End Date Status escitalopram oxalate (LEXAPRO) 20 mg tablet every morning. 04/06/2020 Active levonorgestreL (ROSEMARIE) 14 mcg/24 hrs (3 yrs) 13.5 mg IUD by Intrauterine route. Active Active Problems Problem Noted Date Diagnosed Date History of iron deficiency anemia 05/06/2020 Family History Medical History Relation Name Comments Healthy Brother 1 Healthy Brother 2 Cancer Father Heart Disease Father Relation Name Status Comments Brother 1 Alive Brother 2 Alive Father Mother Alive Social History Tobacco Use Types Packs/Day Years [...] Pulse 68 04/27/2020 3:12 PM CDT Temperature 36.7 ??C (98 ??F) 05/06/2020 2:39 PM CDT Respiratory Rate 22 05/06/2020 2:39 PM CDT Oxygen Saturation 98% 04/27/2020 3:12 PM CDT Inhaled Oxygen Concentration - - Weight 83.7 kg (184 lb 9.6 oz) 04/27/2020 3:12 P M CDT Height 152.4 cm (5') 05/06/2020 2:39 PM CDT Body Mass Index 36.05 04/27/2020 3:12 PM CDT Plan of Treatment Health Maintenance Due Date Last Done Comments CERVICAL CANCER SCREENING 2017 INFLUENZA VACCINE (#1) 2024 , 05/18/2022, 05/17/2019 COVID-19 Vaccine ( season) 2024 12/26/2020, 12/05/2020 DTAP/TDAP/TD VACCINES (5 - Td or Tdap) 11/01/2032 11/01/2022, 06/24/1997, 04/17/1997, Additional history exists HEPATITIS B VACCINES Completed 06/24/1997, 02/11/1997, 1996 HPV VACCINES Completed 07/04/2019, 11/2018, 09/21/2018, Additional history exists PNEUMOCOCCAL VACCINE 0-64 YEARS Aged Out No longer eligible based on patient's age to complete this topic Care Teams Robotype Operator Relationship Specialty Start Date End Date Brad Chan MD [address] [place] [phone] PCP - General Emergency Medicine 04/10/20
--- OUTSIDE RECORDS SUMMARY | 2024-07-28 05:15 | XMS_ITS | Encounter Summary ---
Author Organization [facility] Address [address] [place] [address] Care Team Providers Care Hebrew Cantor Name Role Phone Brad Chan MD Primary Care Provider [phone] Encounter Details Date Type Department Care Team (Late st Contact Info) Description 03/14/2024 External Device Data STL ABSTRACTION Provider, Abstract NO ADDRESS ON FILE Social History Tobacco Use Types Packs/Day Years [...] on filedocumented in this encounter Care Teams Hebrew Cantor Relationship Specialty Start Date End Date Brad Chan MD [address] [place] [phone] PCP - General Emergency Medicine 04/10/20 documented as of this encounter
--- OUTSIDE RECORDS SUMMARY | 2024-07-28 05:15 | XMS_ITS | Encounter Summary ---
Author Organization [facility] Address [address] [place] [address] Care Team Providers Care Side Puller Name Role Phone Referring, Unknown MD Primary Care Provider Unav ailable Encounter Details Date Type Department Care Team (Late st Contact Info) Description 11/04/2019 Telephone [facility] [address] [facility] [address] (Third Floor) [place], [place] [id number] Cleo Figueroa NP [address] [facility] [phone] [place], [place] [phone] Social History Tobacco Use Types Packs/Day Years Used Date Smoking Tobacco: Never Assessed Comments Unknown Sex and Gender Information Value Date Recorded Sex Assigned at Not on file Legal Sex Female 10:43 AM FOSTER CARE THERAPIST Gender Identity Not on file Sexual Orientation Not on file documented as of this encounter Miscellaneous Notes * Telephone Encounter - Cleo Figueroa NP - 11/04/2019 5:11 PM CDT Patient called back for instructions for return to work after relative (brother) who was tested forCOVID 19 test ( household contact) is negative. Gave information to caller to call [place] for return to work instructions.as listed in original call log from 10/25/2019 documented in this encounter Plan of Treatment Not on file documented as of this encounter Visit Diagnoses Not on filedocumented in this encounter Care Teams Side Puller Relationship Specialty Start Date End Date Referring, Unknown, PCP - General 09/28/19 09/18/22 documented as of this encounter
--- OUTSIDE RECORDS SUMMARY | 2024-07-28 05:15 | XMS_ITS | Encounter Summary ---
Author Organization [facility] Address [address] [place] [address] Care Team Providers Care Dynamometer Tester Engine Name Role Phone Brad Chan MD Primary Care Provider [phone] Encounter Details Date Type Department Care Team (Late st Contact Info) Description 01/23/2024 External Device Data STL ABSTRACTION Provider, Abstract [...] on filedocumented in this encounter Care Teams Dynamometer Tester Engine Relationship Specialty Start Date End Date Brad Chan MD [address] [place] [phone] PCP - General Emergency Medicine 04/10/20 documented as of this encounter
--- OUTSIDE RECORDS SUMMARY | 2024-07-28 05:15 | XMS_ITS | Encounter Summary ---
Author Organization [facility] Address [address] [place] [address] Care Team Providers Care Metal Control Worker Name Role Phone Brad Chan MD Primary Care Provider [phone] Encounter Details Date Type Department Care Team (Late st Contact Info) Description 03/13/2024 External Device Data STL ABSTRACTION Provider, Abstract [...] on filedocumented in this encounter Care Teams Metal Control Worker Relationship Specialty Start Date End Date Brad Chan MD [address] [place] [phone] PCP - General Emergency Medicine 04/10/20 documented as of this encounter
--- OUTSIDE RECORDS SUMMARY | 2024-07-28 05:15 | XMS_ITS | Encounter Summary ---
Author Organization [facility] Address [address] [facility] Attn: Epic Prelude ADT [place] [address] Care Team Providers Care Business Development Recruiter Name Role Phone Brad Chan MD Primary Care Provider [phone] Encounter Details Date Type Department Care Team (Latest Contact Info) Description 04/27/2020 Travel Social History Tobacco Use Types Packs/Day [...] on filedocumented in this encounter Care Teams Business Development Recruiter Relationship Specialty Start Date End Date Brad Chan MD [address] [place] [phone] PCP - General Emergency Medicine 04/10/20 documented as of this encounter
--- OUTSIDE RECORDS SUMMARY | 2024-07-28 05:15 | XMS_ITS | Encounter Summary ---
Author Organization [facility] Address [address] [place] [address] Care Team Providers Care Charger Operator Name Role Phone Brad Chan MD Primary Care Provider [phone] Encounter Details Date Type Department Care Team (Late st Contact Info) Description 04/09/2024 External Device Data STL ABSTRACTION Provider, Abstract [...] on filedocumented in this encounter Care Teams Charger Operator Relationship Specialty Start Date End Date Brad Chan MD [address] [place] [phone] PCP - General Emergency Medicine 04/10/20 documented as of this encounter
--- OUTSIDE RECORDS SUMMARY | 2024-07-28 05:15 | XMS_ITS | Encounter Summary ---
Author Organization [facility] Address [address] [place] [address] Care Team Providers Care Millinery Designer Name Role Phone Brad Chan MD Primary Care Provider [phone] Encounter Details Date Type Department Care Team (Late st Contact Info) Description 05/06/2020 Orders Only [facility] Oncology and Hematology - Balbir [address] [facility] [address] [place] [address] Provider, Abstract NO ADDRESS ON FILE Social [...] Procedure Name Priority Date/Time Associated Diagnosis Comments COMPREHENSIVE METABOLIC PANEL Routine 04/27/2020 documented in this encounter Results * COMPREHENSIVE METABOLIC PANEL (04/27/2020) Blood Abstract Provider CHEMISTRY ORDERABLES NON [facility] documented in this encounter Visit Diagnoses Not on filedocumented in this encounter Care Teams Millinery Designer Relationship Specialty Start Date End Date Brad Chan MD [address] [phone] PCP - General Emergency Medicine 04/10/20 documented as of this encounter
--- OUTSIDE RECORDS SUMMARY | 2024-07-28 05:15 | XMS_ITS | Encounter Summary ---
Author Organization [facility] Address [address] [facility] Attn: Epic Prelude ADT [place] [address] Care Team Providers Care Kitchen Food Assembler Name Role Phone Brad Chan MD Primary Care Provider [phone] Encounter Details Date Type Department Care Team (Latest Contact Info) Description 04/10/2020 Travel Social History Tobacco Use Types Packs/Day [...] have Coronavirus / COVID-19? No / Unsure 04/10/2020 11:47 AM CDT documented as of this encounter Plan of Treatment Not on file documented as of this encounter Visit Diagnoses Not on filedocumented in this encounter Care Teams Kitchen Food Assembler Relationship Specialty Start Date End Date Brad Chan MD [address] [place] [phone] PCP - General Emergency Medicine 04/10/20 documented as of this encounter
--- OUTSIDE RECORDS SUMMARY | 2024-07-28 05:15 | XMS_ITS | Encounter Summary ---
Author Organization [facility] Address [address] [place] [address] Care Team Providers Care Inspection Supervisor Name Role Phone Bessy Alcaraz NP Primary Care Provider + Referring, Unknown MD Unavailable Unavailabl e Encounter Details Date Type Department Care Team (Late st Contact Info) Description 09/19/2022 10:45 AM SHOTGUN SHELL ASSEMBLY MACHINE OPERATOR Lab [facility] [address] [place] [address] Social History Tobacco Use Types Packs/Day Years Used Date Smoking Tobacco: Never Assessed Comments Unknown Sex and Gender Information Value Date Recorded Sex Assigned at Not on file Legal Sex Female 10:43 AM SHOTGUN SHELL ASSEMBLY MACHINE OPERATOR Gender Identity Not on file Sexual Orientation Not on file documented as of this encounter Plan of Treatment Not on file documented as of this encounter Procedures Procedure Name Priority Date/Time Associated Diagnosis Comments T-SPOT.TB Routine 09/19/2022 11:38 AM SHOTGUN SHELL ASSEMBLY MACHINE OPERATOR documented in this encounter Results * T-SPOT.TB (09/19/2022 11:38 AM SHOTGUN SHELL ASSEMBLY MACHINE OPERATOR) T-SPOT.TB Negative Cathleen ECKERT Comment: Normal Value: Negative A negative test [...] test. T-SPOT.TB Panel A Spot Count 0 [facility]ABAR T-SPOT.TB Panel B Spot Count 1 BABAR T-SPOT.TB Negative Control Passed BABAR T-SPOT.TB Positive Control Passed BABAR Comment: Test Performed at: [facility] [address] [place] [address] ??[id number] ? ANNIKA DIAZ MD,PHD Blood 09/19/2022 11:3 8 AM SHOTGUN SHELL ASSEMBLY MACHINE OPERATOR 09/19/2022 12:00 PM SHOTGUN SHELL ASSEMBLY MACHINE OPERATOR Sukhjinder Diop MD LAB MICROBIOLOGY - GENERAL ORDERABLES Final Result Performing Organization Address City/State/[facility] Co al Phone Number [facility] [address] [facility] Department [place] [address] documented in this encounter Visit Diagnoses Not on filedocumented in this encounter Care Teams Inspection Supervisor Relationship Specialty Start Date End Date Bessy Alcaraz NP [address] [phone] PCP - General Nurse Practitioner 09/19/22 Referring, Haylie, 09/19/22 documented as of this encounter
--- OUTSIDE RECORDS SUMMARY | 2024-07-28 05:15 | XMS_ITS | Encounter Summary ---
Author Organization [facility] Address [address] [place] [address] Care Team Providers Care Chief Radiation Therapist Name Role Phone Brad Chan MD Primary Care Provider [phone] Encounter Details Date Type Department Care Team (Late st Contact Info) Description 03/19/2024 External Device Data STL ABSTRACTION Provider, Abstract [...] filedocumented in this encounter Care Teams Chief Radiation Therapist Relationship Specialty Start Date End Date Brad Chan MD [address] [place] [phone] PCP - General Emergency Medicine 04/10/20 documented as of this encounter
--- OUTSIDE RECORDS SUMMARY | 2024-07-28 05:15 | XMS_ITS | Encounter Summary ---
Author Organization [facility] Address [address] [place] [address] Care Team Providers Care Power Plant Superintendent Name Role Phone Brad Chan MD Primary Care Provider [phone] Encounter Details Date Type Department Care Team (Late st Contact Info) Description 04/16/2024 External Device Data STL ABSTRACTION Provider, Abstract [...] on filedocumented in this encounter Care Teams Power Plant Superintendent Relationship Specialty Start Date End Date Brad Chan MD [address] [place] [phone] PCP - General Emergency Medicine 04/10/20 documented as of this encounter
--- OUTSIDE RECORDS SUMMARY | 2024-07-28 05:15 | XMS_ITS | Encounter Summary ---
Author Organization [facility] Healthcare Address [address] [place] [id number] Care Team Providers Care Para Operator Name Role Phone Bessy Alcaraz NP Primary Care Provider + Referring, Unknown MD Unavailable Unavailabl e Reason for Visit * Reason Comments Sore Throat Sore throat and b/l ear fullness, sx's started a week ago, otc dayquil and nyquil, no exp Encounter Details Date Type Department Care Team (Late st Contact Info) Description 04/05/2024 7:15 PM CDT Office Visit [facility] [address] [place] [phone] Margareth Kaur SOLAR SALES SPECIALIST [address] [place] [address] Sore throat (Primary Dx); Strep pharyngitis Social History Tobacco Use Types Packs/Day Years Used Date Smoking Tobacco: Never Smokeless Tobacco: Never Comments Unknown Sex and Gender Information Value Date Recorded Sex Assigned at Not on file Legal Sex Female 10:43 AM PNEUMATIC DRUM SANDER Gender Identity Not on file Sexual Orientation Not on file documented as of this encounter Last Filed Vital Signs Vital Sign Reading Time Taken Comments Blood Pressure 120/76 04/05/2024 7:04 PM CDT Pulse 92 04/05/2024 7:04 PM CDT Temperature 36.7 ??C (98 ??F) 04/05/2024 7:04 PM CDT Respiratory Rate 18 04/05/2024 7:04 PM CDT Oxygen Saturation 98% 04/05/2024 7:04 PM CDT Inhaled Oxygen Concentration - - Weight 84.8 kg (187 lb) 04/05/2024 7:04 PM CDT Height 165.1 cm (5' 5 ) 04/05/2024 7:04 PM CDT Body Mass Index 31.12 04/05/2024 7:04 PM CDT documented in this encounter Patient Instructions * Patient Instructions* Margareth Kaur NP - 04/05/2024 7:15 PM CDT Thank you for allowing me to take care of you today. Diagnosis strep pharyngitis. Test: Rapid strep test is positive. Prescribed amoxicillin. Home care includes rest, hydration, over the counter medications, warm saltwater gargles, change your toothbrush in 2 days after starting antibiotics, cold drinks to soothe the throat, throat lozenges/cough drops, throat sprays. Follow up with your primary provider in 2-3 days as needed. Red flags include worsening symptoms including pain, swelling, headache, dizziness, congestion, fever, shortness of breath, chest pain, nausea/vomiting, abdomen pain, back pain, muscle pain, decreased range of motion, numbness/tingling, weakness, fatigue. Follow up with your primary provider, this clinic, or if severe go to ER. * Attachments The following attachments cannot be sent through Care Everywhere. * Strep Throat (AfterCare(R) Instructions(ER/ED)) (Chadian) documented in this encounter Ordered Prescriptions Prescription Sig Dispense Quantity Refills Last Filled Start Date End Date amoxicillin (AMOXIL) 500 mg tablet/capsuleIndic ations:Strep pharyngitis Take 1 tablet/caps ule (500 mg total) by mouth 2 (two) times a day for 10 days 20 tablet/capsule 04/05/2024 04/15/2024 documented in this encounter Progress Notes * Margareth Kaur NP - 04/05/2024 7:15 PM CDT Images from the original note were not included. Subjective/Objective Patient ID: Cee March is a 28 y.o. female. Chief Complaint Sore Throat (Sore throat and b/l ear fullness, sx's started a week ago, otc dayquil and nyquil, no exp) Patient is a 28-year-old female [facility] chief complaint of sore throat and ear fullness to both ears. Patient reports she had cold-like symptoms along with a cough over a week ago. States that the sore throat just keeps getting worse. Reports she has taken DayQuil and NyQuil [id number] to try to help with symptoms. Patient states she took a COVID test at home which was negative. Review of system: All systems reviewed and are negative or noncontributory for this patient's presentation today other than as stated in HPI. Physical Exam Vitals and nursing note reviewed. Constitutional: General: She is not in acute distress. Appearance: Normal appearance. She is normal weight. She is not ill-appearing, toxic-appearing or diaphoretic. HENT: Head: Normocephalic and atraumatic. Right Ear: Tympanic membrane, ear canal and external ear normal. No drainage, swelling or tenderness. No middle ear effusion. There is no impacted cerumen. Tympanic membrane is not erythematous. Left Ear: Tympanic membrane, ear canal and external ear normal. No drainage, swelling or tenderness. No middle ear effusion. There is no impacted cerumen. Tympanic membrane is not erythematous. Ears: Comments: Increase fluid behind bilateral TMs. No erythema/edema to the ear canals. Nose: Nose normal. No congestion or rhinorrhea. Mouth/Throat: Mouth: Mucous membranes are moist. Pharynx: Oropharynx is clear. Posterior oropharyngeal erythema present. No oropharyngeal exudate. Tonsils: No tonsillar exudate or tonsillar abscesses. 0 on the right. 0 on the left. Comments: Throat is slightly erythematous. Eyes: Conjunctiva/sclera: Conjunctivae normal. Pupils: Pupils are equal, round, and reactive to light. Cardiovascular: Rate and Rhythm: Regular rhythm. Pulmonary: Effort: Pulmonary effort is normal. No respiratory distress. Breath sounds: Normal breath sounds. No stridor. No wheezing, rhonchi or rales. Chest: Chest wall: No tenderness. Abdominal: General: There is no distension. Musculoskeletal: General: Normal range of motion. Cervical back: Normal range of motion and neck supple. No rigidity or tenderness. Skin: General: Skin is warm and dry. Neurological: General: No focal deficit present. Mental Status: She is alert and oriented to person, place, and time. Mental status is at baseline. Psychiatric: Mood and Affect: Mood normal. Behavior: Behavior normal. Thought Content: Thought content normal. Judgment: Judgment normal. Vitals: 04/05/24 1904 BP: 120/76 Pulse: 92 Resp: 18 Temp: 36.7 ??C (98 ??F) TempSrc: Temporal SpO2: 98% Weight: 84.8 kg (187 lb) Height: 165.1 cm (5' 5 ) Assessment/Plan Diagnoses and all orders for this visit: Sore throat (Primary) - POCT rapid strep A Strep pharyngitis - amoxicillin (AMOXIL) 500 mg tablet/capsule; Take 1 tablet/capsule (500 mg total) by mouth 2 (two)times a day for 10 days Recent Results (from the past 4 hour(s)) POCT rapid strep A Collection Time: 04/05/24 7:19 PM Result Value Ref Range Rapid Strep A, POC Positive (A) Negative Diagnosis strep pharyngitis. Test: Rapid strep test is positive. Prescribed amoxicillin. Home care includes rest, hydration, over the counter medications, warm saltwater gargles, change your toothbrush in 2 days after starting antibiotics, cold drinks to soothe the throat, throat lozenges/cough drops, throat sprays. Follow up with your primary provider in 2-3 days as needed. Red flags include worsening symptoms including pain, swelling, headache, dizziness, congestion, fever, shortness of breath, chest pain, nausea/vomiting, abdomen pain, back pain, muscle pain, decreased range of motion, numbness/tingling, weakness, fatigue. Follow up with your primary provider, this clinic, or if severe go to ER. Procedures Disposition- Patient presents with sore throat, fullness feeling in ears. Patient is nontoxic-appearing and in no acute distress. Vitals signs are stable. Discussed point of care test results with patient, lab test, X-rays that may have been completed or ordered during clinic visit. Treatments completed [facility] in [facility] include rapid strep test. Given the history and physical exam findings, presentation/diagnosis is strep pharyngitis. The Differential diagnosis includes COVID, influenza, URI, OM. However, these differential diagnosis are less likely given the data, history and physical exam. Supportive care was discussed including rest, hydration, hkib-zci-qlkongl meds to help with symptoms. Amoxicillin was prescribed. Discussed medications dosages, usage & potential side effects. Advised close follow up and return criteria/red flags were discussed. Risks and interactions reviewed with patient. Patient has been instructed to follow up w PCP or go to ER for any signs or symptoms that are of concern or worsening. Understanding of discharge instructions verbalized, and agrees with plan of care. The patient was given the opportunity to ask all questions and to have all questions answered. This note is dictated and transcribed by [employer]. Mechanical Engineering Teacher variances may occur. Despite proofreading, typographical errors may occur. Margareth Kaur NP documented in this encounter Plan of Treatment Not on file documented as of this encounter Procedures Procedure Name Priority Date/Time Associated Diagnosis Comments POCT RAPID STREP Routine 04/05/2024 7:19 PM CDT Sore throat documented in this encounter Results * (ABNORMAL) POCT rapid strep A (04/05/2024 7:19 PM CDT) Rapid Strep A, POC Positive(A ) Negative Swab 04/05/2024 7:19 PM CDT Margareth Kaur SOLAR SALES SPECIALIST POINT OF CARE TEST ORDERAB LES Final Result documented in this encounter Visit Diagnoses Diagnosis Sore throat- Primary Acute pharyngitis Strep pharyngitis documented in this encounter Historical Medications * This list may reflect changes made after this encounter. buPROPion XL (WELLBUTRIN XL) 150 mg 24 hr tablet Take 1 tablet (150 mg total) by mouth daily atomoxetine (STRATTERA) 80 mg capsule Take 1 capsule (80 mg total) by mouth daily 03/08/2024 atomoxetine (STRATTERA) 60 mg capsule Take 1 capsule (60 mg total) by mouth daily 04/01/2024 added in this encounter Care Teams Para Operator Relationship Specialty Start Date End Date Strohbeck, Bessy R., SOLAR SALES SPECIALIST [address] [place] [address] PCP - General Nurse Practitioner 09/19/22 Referring, Unknown, 09/19/22 documented as of this encounter
--- OUTSIDE RECORDS SUMMARY | 2024-07-28 05:15 | XMS_ITS | Encounter Summary ---
Author Organization [facility] Healthcare Address [address] [place] [address] Care Team Providers Care Office Receptionist Name Role Phone Bessy Alcaraz NP Primary Care Provider + Referring, Unknown MD Unavailable Unavailabl e Reason for Visit * Reason Comments Sore Throat Sore throat, Ear harmony n, Body aches, SOB, and Fatigue. + exp to Covid. At home covid test was negative. Onset 2 wks for throat and ear pain, SOB and Fatigue started today. No OTC. Encounter Details Date Type Department Care Team (Late st Contact Info) Description 07/24/2023 2:15 PM PORTABLE TRACK CREW CHIEF Office Visit [facility] [place] [address] [place] [address] Margareth Parker PLUG PASTER [address] [facility] [address] Sore throat (Primary Dx); Suspected COVID-19 virus infection; Ear infection; Viral syndrome Social History Tobacco Use Types Packs/Day Years Used Date Smoking Tobacco: Never Smokeless Tobacco: Never Comments Unknown Sex and Gender Information Value Date Recorded Sex Assigned at Not on file Legal Sex Female 10:43 AM PORTABLE TRACK CREW CHIEF Gender Identity Not on file Sexual Orientation Not on file documented as of this encounter Last Filed Vital Signs Vital Sign Reading Time Taken Comments Blood Pressure 120/72 07/24/2023 2:18 PM PORTABLE TRACK CREW CHIEF Pulse 84 07/24/2023 2:18 PM PORTABLE TRACK CREW CHIEF Temperature 36.8 ??C (98.3 ??F) 07/24/2023 2:18 PM CS T Respiratory Rate 20 07/24/2023 2:18 PM PORTABLE TRACK CREW CHIEF Oxygen Saturation 98% 07/24/2023 2:18 PM PORTABLE TRACK CREW CHIEF Inhaled Oxygen Concentration - - Weight 90.8 kg (200 lb 3.2 oz) 07/24/2023 2:18 P M PORTABLE TRACK CREW CHIEF Height 165.1 cm (5' 5 ) 07/24/2023 2:18 PM PORTABLE TRACK CREW CHIEF Body Mass Index 33.32 07/24/2023 2:18 PM PORTABLE TRACK CREW CHIEF documented in this encounter Patient Instructions * Patient Instructions* Margareth Parker NP - 07/24/2023 2:15 PM PORTABLE TRACK CREW CHIEF Thank you for allowing me to take care of you today. Diagnosis ear infection/left side. Test: Negative rapid strep, COVID, influenza test. Prescribed amoxicillin. Home care includes rest, hydration, over the counter medications, warm compress to ear for temporary relief of pain, elevate your had at night if your having pain while sleeping. Follow up with your primary provider in 2-3 days as needed. Red flags include worsening symptoms including pain, swelling, headache, dizziness, congestion, fever, shortness of breath, chest pain, nausea/vomiting, abdomen pain, back pain, muscle pain, decreased range of motion, numbness/tingling, weakness, fatigue. Follow up with your primary provider, this clinic, or if severe go to ER. ABLE TRACK CREW CHIEF * Attachments The following attachments cannot be sent through Care Everywhere. * Ear Infection (AfterCare(R) Instructions(ER/ED)) (Mexican) * Viral Syndrome (AfterCare(R) Instructions(ER/ED)) (Mexican) documented in this encounter Ordered Prescriptions Prescription Sig Dispense Quantity Refills Last Filled Start Date End Date amoxicillin (AMOXIL) 875 mg tabletIndications: Ear infection Take 1 tablet (875 mg total) by mouth 2 (two) times a day for 7 days 14 tablet 07/24/2023 07/31/2023 documented in this encounter Progress Notes * Margareth Parker NP - 07/24/2023 2:15 PM CST Images from the original note were not included. Subjective/Objective Patient ID: Cee March is a 27 y.o. female. Chief Complaint Sore Throat (Sore throat, Ear pain, Body aches, SOB, and Fatigue. + exp to Covid. At home covid test was negative. Onset 2 wks for throat and ear pain, SOB and Fatigue started today. No OTC. ) Patient is a 27-year-old female presents to [facility] with chief complaint of sore throat, earaches starting a couple of weeks ago. Patient reports that her was positive for COVID x2 weeks ago. Reports her daughter has tested positive for COVID x4 days ago. She reports she is taking numerous COVID test at home which have been negative. Patient did state that she had numerous e ar infections as a child. Reports she ruptured her eardrums numerous times. Review of Systems Constitutional: Negative for fever. HENT: Positive for ear pain and sore throat. Physical Exam Vitals and nursing note reviewed. [...] Tympanic membrane is not erythematous. Left Ear: Ear canal and external ear normal. No drainage, swelling or tenderness. No middle ear effusion. There is no impacted cerumen. Tympanic membrane is erythematous. Ears: Comments: Left ear appears cloudy behind TM. There is a ring of redness around the eardrum. Nose: Nose normal. No congestion or rhinorrhea. Mouth/Throat: Mouth: Mucous membranes are moist. Pharynx: Oropharynx is clear. Posterior oropharyngeal erythema present. No oropharyngeal exudate. Tonsils: 0 on the right. 0 on the left. Eyes: Conjunctiva/sclera: Conjunctivae normal. Pupils: Pupils are equal, round, and reactive to light. Cardiovascular: Rate and Rhythm: Normal rate and [...] and neck supple. No rigidity or tenderness. Lymphadenopathy: Cervical: No cervical adenopathy. Skin: General: Skin is warm and dry. Neurological: General: No focal deficit present. Mental Status: She is alert and oriented to person, place, and time. Mental status is at baseline. Psychiatric: Mood and Affect: Mood normal. Behavior: Behavior normal. Thought Content: Thought content normal. Judgment: Judgment normal. Vitals: 07/24/23 1418 BP: 120/72 Pulse: 84 Resp: 20 Temp: 36.8 ??C (98.3 ??F) TempSrc: Temporal SpO2: 98% Weight: 90.8 kg (200 lb 3.2 oz) Height: 165.1 cm (5' 5 ) Assessment/Plan Diagnoses and all orders for this visit: Sore throat (Primary) - POCT rapid strep A Suspected COVID-19 virus infection - COVID-19 POC - POCT influenza A/B Ear infection - amoxicillin (AMOXIL) 875 mg tablet; Take 1 tablet (875 mg total) by mouth 2 (two) times a day for7 days Viral syndrome Diagnosis ear infection/left side. Test: Negative rapid strep, COVID, influenza test. Prescribed amoxicillin. Home care includes rest, hydration, over the counter medications, warm compress to ear for temporary relief of pain, elevate your had at night if your having pain while sleeping. Follow up with your primary provider in 2-3 days as needed. Red flags include worsening symptoms including pain, swelling, headache, dizziness, congestion, fever, shortness of breath, chest pain, nausea/vomiting, abdomen pain, back pain, muscle pain, decreased range of motion, numbness/tingling, weakness, fatigue. Follow up with your primary provider, this clinic, or if severe go to ER. Procedures Disposition- Patient presents with sore throat, earache, fever. Patient is nontoxic-appearing and in no acute distress. Vitals signs are stable. Discussed point of care test results with patient, lab test, X-raysthat may have been completed or ordered during clinic visit. Treatments completed while in [facility] include rapid strep, COVID, influenza test. Given the history and physical exam findings, pre sentation/diagnosis of viral infection, ear infection on left side. The Differential diagnosis includes URI, Influenza, allergic rhinitis, seasonal allergies, chronic rhinitis, sinusitis, COVID, RSV.However, these differential diagnosis are less likely given the data, history and physical exam. Supportive care was discussed including rest, hydration, mzxr-mzz-obplffh meds to help with symptoms. Amoxicillin was prescribed. Discussed medications dosages, usage & potential side effects. Advised close follow up and return criteria/red flags were discussed. Risks and interactions reviewed with patient. Patient has been instructed to follow up w PCP or go to ER for any signs or symptoms thatare of concern or worsening. Understanding of discharge instructions verbalized, and agrees with plan of care. The patient was given the opportunity to ask all questions and to have all questions answered. Margareth Parker NP ABLE TRACK CREW CHIEF documented in this encounter Plan of Treatment Not on file documented as of this encounter Procedures Procedure Name Priority Date/Time Associated Diagnosis Comments COVID-19 POC Routine 07/24/2023 2:29 PM PORTABLE TRACK CREW CHIEF Suspected COVID-19 virus infection POCT INFLUENZA A/B Routine 07/24/2023 2: 28 PM PORTABLE TRACK CREW CHIEF Suspected COVID-19 virus infection POCT RAPID STREP Routine 07/24/2023 2:28 PM PORTABLE TRACK CREW CHIEF Sore throat documented in this encounter Results * COVID-19 POC (07/24/2023 2:29 PM PORTABLE TRACK CREW CHIEF) Pathologist [facility] COVID-19 Ag POC (BD Veritor) Presumptive Negative Presumptive Negative, Invalid [facility] Nasal 07/24/2023 2:29 PM PORTABLE TRACK CREW CHIEF Margareth Parker NP POINT OF CARE TEST ORDERAB LES Final Result [facility] [employer] [address] [place] [address] * POCT influenza A/B (07/24/2023 2:28 PM PORTABLE TRACK CREW CHIEF) Rapid Influenza A Ag Negative Negative, Invalid Rapid Influenza B Ag Negative Negative, Invalid Nasopharyngeal 07/24/2023 2: 28 PM PORTABLE TRACK CREW CHIEF Margareth Parker PLUG PASTER POINT OF CARE TEST ORDERAB LES Final Result * POCT rapid strep A (07/24/2023 2:28 PM PORTABLE TRACK CREW CHIEF) Rapid Strep A, POC Negative Negative Swab 07/24/2023 2:28 PM PORTABLE TRACK CREW CHIEF Margareth Parker PLUG PASTER POINT OF CARE TEST ORDERAB LES Final Result documented in this encounter Visit Diagnoses Diagnosis Sore throat- Primary Acute pharyngitis Suspected COVID-19 virus infection Ear infection Unspecified otitis media Viral syndrome Unspecified viral infection, in conditions classified elsewhere and of unspecified site documented in this encounter Historical Medications * This list may reflect changes made after this encounter. Medication Sig Dispense Quantity Refills Last Filled Start D ate End Date Concerta 18 mg CR tablet 07/05/2023 added in this encounter Additional Health Concerns Infection Onset Date Last Indicated Resolved Time COVID: Suspected 07/24/2023 07/24/2023 07/24/2023 2:45 PM PORTABLE TRACK CREW CHIEF documented as of this encounter Care Teams Office Receptionist Relationship Specialty Start Date End Date Bessy Alcaraz NP [address] [place] [address] PCP - General Nurse Practitioner 09/19/22 Referring, Unknown, 09/19/22 documented as of this encounter
--- OUTSIDE RECORDS SUMMARY | 2024-07-28 05:15 | XMS_ITS | Encounter Summary ---
Author Organization [facility] Address [address] [place] [address] Care Team Providers Care Master Glazier Name Role Phone Brad Chan MD Primary Care Provider [phone] Encounter Details Date Type Department Care Team [...] on filedocumented in this encounter Care Teams Master Glazier Relationship Specialty Start Date End Date Brad Chan MD [address] [place] [phone] PCP - General Emergency Medicine 04/10/20 documented as of this encounter
--- OUTSIDE RECORDS SUMMARY | 2024-07-28 05:15 | XMS_ITS | Encounter Summary ---
Author Organization [facility] Address [address] [place] [address] Care Team Providers Care Pulp Drier Name Role Phone Brad Chan MD Primary Care Provider [phone] Encounter Details Date Type Department Care Team (Late st Contact Info) Description 10/13/2023 External Device Data [facility]STRACTION Provider, Abstract [...] on filedocumented in this encounter Care Teams Pulp Drier Relationship Specialty Start Date End Date Brad Chan MD [address] [place] [phone] PCP - General Emergency Medicine 04/10/20 documented as of this encounter
--- OUTSIDE RECORDS SUMMARY | 2024-07-28 05:15 | XMS_ITS | Encounter Summary ---
Author Organization [employer] Address [address] [place] [address] Care Team Providers Care Pot Room Supervisor Name Role Phone Brad Chan MD Primary Care Provider [phone] Encounter Details Date Type Department Care Team (Latest Contact Info) Description 11/29/2023 10:40 AM CDT Ancillary Procedure [email or web address] [facility] [address] [place] [address] Bessy Alcaraz, LUDA [address] [place] [phone] Neck pain; Low back pain, unspecified back pain laterality, unspecified chronicity, unspecified whether sciatica present Social History Tobacco Use Types Packs/Day Years [...] Priority Date/Time Associated Diagnosis Comments XR SACROILIAC JOINTS 3+ VW Routine 11/29/2023 2:10 PM CDT Low back pain, unspecified back pain laterality, unspecified chronicity, unspecified whether sciatica present XR LUMBAR SPINE 4+ VW Routine 11/29/2023 2:10 PM CDT Low back pain, unspecified back pain laterality, unspecified chronicity, unspecified whether sciatica present XR THORACIC SPINE 3 VW Routine 11/29/2023 2:10 PM CDT Low back pain, unspecified back pain laterality, unspecified chronicity, unspecified whether sciatica present XR CERVICAL SPINE 4 OR 5 VIEWS Routine 11/29/2023 2:10 PM CDT Neck pain documented in this encounter Results * XR THORACIC SPINE 3 VW (11/29/2023 2:10 PM CDT) Anatomical Region Laterality Modality Spine Computed Radiogr aphy 11/29/2023 2:11 PM CDT Impressions 11/29/2023 2:39 PM CDT IMPRESSION: ?? 1. No acute fracture or subluxation. ?? 2. Possibility of minimal scoliosis of the spine cannot be excluded based upon this image, single AP image of the entire cervical, thoracic and lumbar spines together is requested Narrative 11/29/2023 2:39 PM CDT EXAM: XR THORACIC SPINE 3 VW DATE: 11/29/2023 HISTORY: Low back pain, unspecified back pain laterality, unspecified chronicity, unspecified whether sciatica present COMPARISON: None. FINDINGS: There are 12 ??rib-bearing thoracic vertebrae. Bony alignment is maintained and shows no subluxation. No anterior wedge compression deformities or fractures are evident. Vertebral body heights and intervertebral disc spaces are maintained. There appears to be a minimal dextroscoliosis of the upper portion of the L-spine at 4.2 degrees with subsequent levoscoliosis of the lower L-spine at one degree. Procedure Note Annia Chatman MD - 11/29/2023 EXAM: XR THORACIC SPINE 3 VW DATE: 11/29/2023 HISTORY: Low back pain, unspecified back pain laterality, unspecified chronicity, unspecified whether sciatica present COMPARISON: None. FINDINGS: There are 12 rib-bearing thoracic vertebrae. Bony alignment is maintained and shows no subluxation. No anterior wedge compression deformities or fractures are evident. Vertebral body heights and intervertebral disc spaces are maintained. There appears to be a minimal dextroscoliosis of the upper portion of the L-spine at 4.2 degrees with subsequent levoscoliosis of the lower L-spine at one degree. IMPRESSION: 1. No acute fracture or subluxation. 2. Possibility of minimal scoliosis of the spine cannot be excluded based upon this image, single AP image of the entire cervical, thoracic and lumbar spines together is requested Bessy Alcaraz NP DIAGNOSTIC IMAGIN G ORDERABLES * XR LUMBAR SPINE 4+ VW (11/29/2023 2:10 PM CDT) Anatomical Region Laterality Modality Spine Computed Radiogr aphy 11/29/2023 2:11 PM CDT Impressions 11/29/2023 2:33 PM CDT IMPRESSION: ?? No fracture or subluxation. Narrative 11/29/2023 2:33 PM CDT EXAM: XR LUMBAR SPINE 4+ VW DATE: 11/29/2023 HISTORY: Low back pain, unspecified back pain laterality, unspecified chronicity, unspecified whether sciatica present patient is 27-year-old female. COMPARISON: None. FINDINGS: ?? Five nonrib-bearing lumbar vertebrae are seen. Bony alignment is maintained and shows no subluxation. No anterior wedge compression deformities or fractures are evident. Vertebral body heights and intervertebral disc spaces are maintained. No pars defects are noted. Procedure Note Annia Chatman MD - 11/29/2023 EXAM: XR LUMBAR SPINE 4+ VW DATE: 11/29/2023 HISTORY: Low back pain, unspecified back pain laterality, unspecified chronicity, unspecified whether sciatica present patient is 27-year-old female. COMPARISON: None. FINDINGS: Five nonrib-bearing lumbar vertebrae are seen. Bony alignment is maintained and shows no subluxation. No anterior wedge compression deformities or fractures are evident. Vertebral body heights and intervertebral disc spaces are maintained. No pars defects are noted. IMPRESSION: No fracture or subluxation. Bessy Alcaraz NP DIAGNOSTIC IMAGIN G ORDERABLES * XR SACROILIAC JOINTS 3+ VW (11/29/2023 2:10 PM CDT) Anatomical Region Laterality Modality Pelvis Computed Radiogr aphy 11/29/2023 2:11 PM CDT Impressions 11/29/2023 2:34 PM CDT IMPRESSION: 1. No evidence of sacroilitis. Narrative 11/29/2023 2:34 PM CDT EXAM: XR SACROILIAC JOINTS 3+ VW DATE: 11/29/2023 HISTORY: Low back pain, unspecified back pain laterality, unspecified chronicity, unspecified whether sciatica present patient is 27-year-old female. COMPARISON: None. No acute sacrococcygeal fracture is noted. ??The SI joints are neither widened or displaced. ??The sacral arcuate lines appear intact. Procedure Note Annia Chatman MD - 11/29/2023 EXAM: XR SACROILIAC JOINTS 3+ VW DATE: 11/29/2023 HISTORY: Low back pain, unspecified back pain laterality, unspecified chronicity, unspecified whether sciatica present patient is 27-year-old female. COMPARISON: None. No acute sacrococcygeal fracture is noted. The SI joints are neither widened or displaced. The sacral arcuate lines appear intact. IMPRESSION: 1. No evidence of sacroilitis. Bessy Alcaraz NP DIAGNOSTIC IMAGIN G ORDERABLES * XR CERVICAL SPINE 4 OR 5 VIEWS (11/29/2023 2:10 PM CDT) Anatomical Region Laterality Modality Spine Computed Radiogr aphy 11/29/2023 2:11 PM CDT Impressions 11/29/2023 2:31 PM CDT IMPRESSION: ?? 1. No fracture or subluxation. Narrative 11/29/2023 2:31 PM CDT EXAM: XR CERVICAL SPINE 4 OR 5 VIEWS DATE: 11/29/2023 HISTORY: Neck pain patient is 27-year-old female COMPARISON: None. FINDINGS: Cervical bony alignment is normal. The vertebral bodies are of average height and are without anterior wedge compression deformities, fractures, dislocations, or blastic/lytic lesions. The intervertebral disc spaces are preserved. There is no neural foraminal stenosis bilaterally. The prevertebral soft tissues are normal. Procedure Note Annia Chatman MD - 11/29/2023 EXAM: XR CERVICAL SPINE 4 OR 5 VIEWS DATE: 11/29/2023 HISTORY: Neck pain patient is 27-year-old female COMPARISON: None. FINDINGS: Cervical bony alignment is normal. The vertebral bodies are of average height and are without anterior wedge compression deformities, fractures, dislocations, or blastic/lytic lesions. The intervertebral disc spaces are preserved. There is no neural foraminal stenosis bilaterally. The prevertebral soft tissues are normal. IMPRESSION: 1. No fracture or subluxation. Bessy Alcaraz NP DIAGNOSTIC IMAGIN G ORDERABLES documented in this encounter Visit Diagnoses Diagnosis Neck pain Cervicalgia Low back pain, unspecified back pain laterality, unspecified chronicity, unspecified whether sciatica present documented in this encounter Care Teams Pot Room Supervisor Relationship Specialty Start Date End Date Brad Chan MD [address] [place] [phone] PCP - General Emergency Medicine 04/10/20 documented as of this encounter
--- OUTSIDE RECORDS SUMMARY | 2024-07-28 05:15 | XMS_ITS | Encounter Summary ---
Author Organization [facility] Address [address] [place] [address] Care Team Providers Care Glue Plant Operator Name Role Phone Brad Chan MD Primary Care Provider [phone] Encounter Details Date Type Department Care Team (Late st Contact Info) Description 12/26/2023 External Device Data [facility] ABSTRACTION Provider, Abstract [...] on filedocumented in this encounter Care Teams Glue Plant Operator Relationship Specialty Start Date End Date Brad Chan MD [address] [place] [phone] PCP - General Emergency Medicine 04/10/20 documented as of this encounter
--- OUTSIDE RECORDS SUMMARY | 2024-07-28 05:15 | XMS_ITS | Encounter Summary ---
Author Organization [facility] Address [address] [place] [address] Care Team Providers Care Aircraft Electrician Name Role Phone Referring, Unknown MD Primary Care Provider Unav ailable Encounter Details Date Type Department Care Team (Late st Contact Info) Description 10/25/2019 Telephone [facility] [address] [place] [address] Room [address] (Third Floor) [place] [address] Mackenzie Daigle October Social History Tobacco Use Types Packs/Day Years Used Date Smoking Tobacco: Never Assessed Comments Unknown Sex and Gender Information Value Date Recorded Sex Assigned at Not on file Legal Sex Female 10:43 AM DIPLOMA PHARMACY TECHNICIAN Gender Identity Not on file Sexual Orientation Not on file documented as of this encounter Miscellaneous Notes * Telephone Encounter - Mackenzie Daigle - 10/25/2019 12:20 PM CDT Employee COVID-19 Screening 10/25/2019 Email: [email or web address] Employee ID# [id number] Employer: [employer] 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 No Department: Manager Filter/Adjuster: Tamica Bowers Are you still working from home or on-site? On-site Was this a work-related exposure? No Date of exposure: 10/20/2019 Was patient masked? No Patient Test Result: Positive What PPE was employee wearing? None Employee Symptoms: Yes Date of employee symptom onset: 10/21/2019 Description of Symptoms: Other Other Symptoms: Congestion Did you have symptoms at work? No Exposure Risk (See Exposure Guide): Medium Assessment: Asymptomatic, non-occupational exposure Plan: Furmaggieugh for duration of SIMON quarantine (household contacts) Script C (household close contact) C. Because you are a household contact of a known or suspected COVID-19 case, you will be furloughed for the duration of time determined by the Department of Health. Please contact your local [place] office with the details of your instructions from your local department of health, when available. documented in this encounter Plan of Treatment Not on file documented as of this encounter Visit Diagnoses Not on filedocumented in this encounter Care Teams Aircraft Electrician Relationship Specialty Start Date End Date Referring, Unknown, PCP - General 09/28/19 09/18/22 documented as of this encounter
--- OUTSIDE RECORDS SUMMARY | 2024-07-28 05:15 | XMS_ITS | Encounter Summary ---
Author Organization [facility] Address [address] [place] [address] Care Team Providers Care Dobby Loom Chain Pegger Name Role Phone Bessy Alcaraz NP Primary Care Provider + Referring, Unknown MD Unavailable Unavailabl e Encounter Details Date Type Department Care Team (Late st Contact Info) Description 09/25/2023 Telephone [facility] Medical Group [facility] Care at [address] [address] No, Physician Social History Tobacco Use Types Packs/Day Years Used Date Smoking Tobacco: Never Smokeless Tobacco: Never Comments Unknown Sex and Gender Information Value Date Recorded Sex Assigned at Not on file Legal Sex Female 10:43 AM RIGGER UP Gender Identity Not on file Sexual Orientation Not on file documented as of this encounter Miscellaneous Notes * Telephone Encounter - Diana Hernandez - 09/25/2023 1:22 PM CST Pt stated that she will call us back to possibly schedule an appt ER [facility] documented in this encounter Plan of Treatment Not on file documented as of this encounter Visit Diagnoses Not on filedocumented in this encounter Care Teams Dobby Loom Chain Pegger Relationship Specialty Start Date End Date Bessy Alcaraz NP [address] [address] PCP - General Nurse Practitioner 09/19/22 Referring, Unknown, 09/19/22 documented as of this encounter
--- OUTSIDE RECORDS SUMMARY | 2024-07-28 05:15 | XMS_ITS | Encounter Summary ---
Author Organization [facility] Address [address] [place] [address] Care Team Providers Care Header Boss Name Role Phone Brad Chan MD Primary Care Provider [phone] Encounter Details Date Type Department Care Team [...] on filedocumented in this encounter Care Teams Header Boss Relationship Specialty Start Date End Date Brad Chan MD [address] [place] [phone] PCP - General Emergency Medicine 04/10/20 documented as of this encounter
--- OUTSIDE RECORDS SUMMARY | 2024-07-28 05:15 | XMS_ITS | Encounter Summary ---
Author Organization [facility] Address [address] [place] [address] Care Team Providers Care Tube Winder Name Role Phone Brad Chan MD Primary Care Provider [phone] Encounter Details Date Type Department Care Team [...] on filedocumented in this encounter Care Teams Tube Winder Relationship Specialty Start Date End Date Brad Chan MD [address] [place] [phone] PCP - General Emergency Medicine 04/10/20 documented as of this encounter
--- OUTSIDE RECORDS SUMMARY | 2024-07-28 05:15 | XMS_ITS | Encounter Summary ---
Author Organization [facility] Address [address] [place] [address] Care Team Providers Care Director Of Supply Chain Name Role Phone Brad Chan MD Primary Care Provider [phone] Encounter Details Date Type Department Care Team (Latest Contact Info) Description 03/08/2021 9:26 AM CDT - 03/08/2021 11:59 PM CDT Hospital Encounter [facility] Imaging Services [facility] [place] [facility] [address] [place] [address] [place] [address] [facility] [address] [place] [phone] Discharge Disposition: Home or Self Care Social History Tobacco Use Types Packs/Day Years [...] have Coronavirus / COVID-19? No / Unsure 03/08/2021 9:23 AM CDT documented as of this encounter Medications at Time of Discharge Medication Sig Dispensed Refills Start Date End Date escitalopram oxalate (LEXAPRO) 20 mg tablet every morning. 04/06/2020 levonorgestreL (ROSEMARIE) 14 mcg/24 hrs (3 yrs) 13.5 mg IUD by Intrauterine route. documented as of this encounter Plan of Treatment Not on file documented as of this encounter Procedures Procedure Name Priority Date/Time Associated Diagnosis Comments XR WRIST 3+ VW LEFT Routine 03/08/2021 9 :37 AM CDT Left wrist pain documented in this encounter Results * XR WRIST 3+ VW LEFT (03/08/2021 9:37 AM CDT) Anatomical Region Laterality Modality Wrist / Hand Computed Radiogr aphy 03/08/2021 9:37 AM CDT Impressions 03/08/2021 10:35 AM CDT IMPRESSION: ?? No fracture. DICTATION LOCATION: Location [address] [place] [address] Narrative 03/08/2021 10:35 AM CDT LEFT WRIST, 3+ VIEWS DATE: 03/08/2021 9:37 AM HISTORY: See Diagnosis. ?? Left wrist pain ?? COMPARISON: None available FINDINGS: Four views of the left wrist demonstrate no evidence of fracture or dislocation. No radiopaque foreign bodies or arthritic change is seen. INCIDENTAL FINDINGS: ??None. Procedure Note Gabrielle Andrade MD - 03/08/2021 LEFT WRIST, 3+ VIEWS DATE: 03/08/2021 9:37 AM HISTORY: See Diagnosis. Left wrist pain COMPARISON: None available FINDINGS: Four views of the left wrist demonstrate no evidence of fracture or dislocation. No radiopaque foreign bodies or arthritic change is seen. INCIDENTAL FINDINGS: None. IMPRESSION: No fracture. DICTATION LOCATION: Location [address] [place] [address] Jonn Marinelli MD DIAGNOSTIC IMAGING O RDERABLES documented in this encounter Visit Diagnoses Diagnosis Left wrist pain Pain in joint, forearm documented in this encounter Care Teams Director Of Supply Chain Relationship Specialty Start Date End Date Brad Chan MD [address] [place] [phone] PCP - General Emergency Medicine 04/10/20 documented as of this encounter
--- OUTSIDE RECORDS SUMMARY | 2024-07-28 05:15 | XMS_ITS | Encounter Summary ---
Author Organization [facility] Address [address] [place] [address] Care Team Providers Care Roof Tile Layer Name Role Phone Unavailable Primary Care Provider Unavailabl e Encounter Details Date Type Department Care Team (Late st Contact Info) Description 09/27/2019 1:20 PM MECHANICAL MANUFACTURING TECHNICIAN Lab [facility] Advanced Medicine [facility] Advanced Medicine ([facility]) [address] [place] [phone] Lauren Marc MD [address] [facility] [address] [place], [place] [phone] Discharge Disposition: Discharge to home or self care Social History Tobacco Use Types Packs/Day Years Used Date Smoking Tobacco: Never Assessed Comments Unknown Sex and Gender Information Value Date Recorded Sex Assigned at Not on file Legal Sex Female 10:43 AM MECHANICAL MANUFACTURING TECHNICIAN Gender Identity Not on file Sexual Orientation Not on file documented as of this encounter Discharge Disposition Disposition Code Departure Means Destination Discharge to home or self care documented in this encounter Plan of Treatment Not on file documented as of this encounter Procedures Procedure Name Priority Date/Time Associated Diagnosis Comments T-SPOT.TB Routine 09/27/2019 1:20 PM MECHANICAL MANUFACTURING TECHNICIAN documented in this encounter Results * T-SPOT.TB (09/27/2019 1:20 PM MECHANICAL MANUFACTURING TECHNICIAN) T-SPOT.TB Negative Negative [facility] Comment: Limitations from the T-SPOT.TB Package Insert p.15 Results from T-SPOT.TB testing must be used in conjunction with each individual's epidemiological history, current medical status and results of other diagnostic evaluations.The performance of T-SPOT.TB has not been adequately evaluated with specimens from individuals younger than 17 years, in women, and in patients with hemophilia. A false positive result was obtained for T-SPOT.TB when tested in subjects with M. xenopi, M. kansasii and M. gordonae. While ESAT-6 and CFP10 antigens are absent from BCG strains of M. bovis and from most environmental mycobacteria, it is possible that a positive T-SPOT.TB result may be due to infection with M. kansasii, M. szulgai, M. gordonae or M. marinum. Alternative tests would be required if these infections are suspected. A negative test result does not exclude the possibility of exposure to, or infection with M. tuberculosis. Patients with recent exposure to TB infected individuals exhibiting a negative T-SPOT.TB result should be considered for retesting within 6 weeks or if other relevant clinical symptoms indicate possible infection. A positive test result does not rule in active TB disease; other tests should be performed to confirm the diagnosis of active TB disease such as sputum smear and culture, PCR, and chest radiography. T-SPOT.TB has not been evaluated in subjects who have received >1 month of anti-TB therapy. Refrigerated and frozen samples are not recommended for use with T-SPOT.TB test. T-Spot testing performed by [employer], [address] [place] [address]. [id number] A negative test result does not exclude [...] quantitative test. T-SPOT.TB Panel A Spot Count 1 [facility] T-SPOT.TB Panel B Spot Count 2 [facility] T-SPOT.TB Negative Control Passed [facility] T-SPOT.TB Positive Control Passed [facility] Blood specimen (specimen) 09/27/2019 1:20 PM MECHANICAL MANUFACTURING TECHNICIAN 09/27/2019 1:53 PM MECHANICAL MANUFACTURING TECHNICIAN us Lauren Marc MD LAB MICROBIOLOGY - GENERAL ORDERABLES Final Result [facility] Department [place] [address] documented in this encounter Visit Diagnoses Not on filedocumented in this encounter
--- OUTSIDE RECORDS SUMMARY | 2024-07-28 05:15 | XMS_ITS | Encounter Summary ---
Author Organization [facility] Address [address] [place] [address] Care Team Providers Care Collection Support Specialist Name Role Phone Brad hCan MD Primary Care Provider [phone] Encounter Details Date Type Department Care Team (Late st Contact Info) Description 10/10/2023 External Device Data [facility] ABSTRACTION Provider, Abstract [...] on filedocumented in this encounter Care Teams Collection Support Specialist Relationship Specialty Start Date End Date Brad Chan MD [address] [place] [phone] PCP - General Emergency Medicine 04/10/20 documented as of this encounter
--- OUTSIDE RECORDS SUMMARY | 2024-07-28 05:15 | XMS_ITS | Encounter Summary ---
Author [facility] Address [address] [place] [address] Care Team Providers Care Airport Representative Name Role Phone Brad Chan MD Primary Care Provider [phone] Encounter Details Date Type Department Care Team [...] on filedocumented in this encounter Care Teams Airport Representative Relationship Specialty Start Date End Date Brad Chan MD [address] [place] [phone] PCP - General Emergency Medicine 04/10/20 documented as of this encounter
--- OUTSIDE RECORDS SUMMARY | 2024-07-28 05:15 | XMS_ITS | Encounter Summary ---
Author Organization [facility] Address [address] [place] [address] Care Team Providers Care Fiber Optic Technician Name Role Phone Brad Chan MD Primary Care Provider [phone] Reason for Visit * Radiology Services (Routine) - Open Specialty Diagnoses / Procedures Referred By Edmund t Referred To Contact Diagnoses RUQ abdominal pain Procedures US ABDOMEN COMPLETE [facility], External Provider [id number] [place] [phone] Referral ID Status Reason Start Date Expiration Date Visits Re quested Visits Authorized [id number] Open 10/06/2023 11/05/2024 1 1 Encounter Details Date Type Department Care Team (Latest Contact Info) Description 10/09/2023 9:00 AM CDT Ancillary Procedure [facility] [address] [address] [facility], External Provider [id number] [place] [phone] RUQ abdominal pain Social History Tobacco Use Types Packs/Day Years [...] Diagnosis Comments US ABDOMEN COMPLETE Routine 10/09/2023 9 :48 AM CDT RUQ abdominal pain documented in this encounter Results * US ABDOMEN COMPLETE (10/09/2023 9:48 AM CDT) Anatomical Region Laterality Modality Abdomen Ultrasound 10/09/2023 9:48 AM CDT Impressions 10/09/2023 10:00 AM CDT IMPRESSION: Normal complete abdominal ultrasound. Narrative 10/09/2023 10:00 AM CDT EXAM: US ABDOMEN COMPLETE DATE: 10/09/2023 9:53 AM HISTORY: RUQ abdominal pain COMPARISON: None. FINDINGS: No pancreatic abnormalities are noted. The liver demonstrates homogeneous echotexture without evident mass. There is normal hepatopedal flow to the main portal vein. The gallbladder is normal. The common bile duct measures 3.3 mm, normal. ??The IVC is seen. The abdominal aorta is normal in caliber. The right kidney measures 10.5 cm. ??The left kidney measures 10.7 cm. ?? Both kidneys appear normal. The spleen is normal in size measuring ?? 10.5 cm. Procedure Note Yoko Marr MD - 10/09/2023 EXAM: US ABDOMEN COMPLETE DATE: 10/09/2023 9:53 AM HISTORY: RUQ abdominal pain COMPARISON: None. FINDINGS: No pancreatic abnormalities are noted. The liver demonstrates homogeneous echotexture without evident mass. There is normal hepatopedal flow to the main portal vein. The gallbladder is normal. The common bile duct measures 3.3 mm, normal. The IVC is seen. The abdominal aorta is normal in caliber. The right kidney measures 10.5 cm. The left kidney measures 10.7 cm. Both kidneys appear normal. The spleen is normal in size measuring 10.5 cm. IMPRESSION: Normal complete abdominal ultrasound. External Provider [facility] US ORDERABLES documented in this encounter Visit Diagnoses Diagnosis RUQ abdominal pain Abdominal pain, right upper quadrant documented in this encounter Care Teams Fiber Optic Technician Relationship Specialty Start Date End Date Brad Chan MD [address] [place] [phone] PCP - General Emergency Medicine 04/10/20 documented as of this encounter
--- OUTSIDE RECORDS SUMMARY | 2024-07-28 05:15 | XMS_ITS | Encounter Summary ---
Author Organization [facility] Address [address] [place] [address] Care Team Providers Care Music Professor Name Role Phone Brad Chan MD Primary Care Provider [phone] Encounter Details Date Type Department Care Team (Late st Contact Info) Description 03/12/2024 External Device Data ST[facility] ABSTRACTION Provider, Abstract [...] on filedocumented in this encounter Care Teams Music Professor Relationship Specialty Start Date End Date Brad Chan MD [address] [place] [phone] PCP - General Emergency Medicine 04/10/20 documented as of this encounter
--- OUTSIDE RECORDS SUMMARY | 2024-07-28 05:15 | XMS_ITS | Encounter Summary ---
Author Organization [facility] Address [address] [place] [address] Care Team Providers Care Impact Retail Service Merchandiser Name Role Phone Brad Chan MD Primary Care Provider [phone] Reason for Visit * Reason Comments Follow Up Encounter Details Date Type Department Care Team (Late st Contact Info) Description 05/06/2020 2:45 PM CDT Video Visit [facility] Oncology and Hematology - Balbir [address] [facility] [address] [place] [address] Joe Callejas MD [address] [facility] [address] [place] [address] History of iron deficiency anemia Social History Tobacco Use Types Packs/Day Years [...] Taken Comments Blood Pressure - - Pulse - - Temperature 36.7 ??C (98 ??F) 05/06/2020 2:39 PM CDT Respiratory Rate 22 05/06/2020 2:39 PM CDT Oxygen Saturation - - Inhaled Oxygen Concentration - - Weight - - Height 152.4 cm (5') 05/06/2020 2:39 PM CDT Body Mass Index - - documented in this encounter Progress Notes * Joe Callejas MD - 05/06/2020 2:58 PM CDT This encounter was completed via two-way synchronous audio and video communication. Patient expressed understanding that using technology outside of [facility] has higher potential tointroduce privacy risks: Not Applicable Patient's identity confirmed yes Patient gave verbal consent to have these services billed to their insurance and expressed understanding that co-insurance and deductible may apply: yes HEMATOLOGY / ONCOLOGY PROGRESS NOTE Patient Identification: Name: Cee Aldridge Age: 24 y.o. Sex: female : 1995 DIAGNOSIS History of iron deficiency anemia CURRENT TREATMENT Expectant TREATMENT HISTORY SUBJECTIVE This is a video visit. Patient denies any tiredness and fatigue. She denies any bleeding and bruising. Weight and appetite stable. No other new complaints. Review of system Constitutional: denies fevers, sweats, fatigue, malaise, weight loss HEENT: denies sinus congestion, hearing or vision problems Respiratory: denies cough, dyspnea, wheeze Cardiovascular: denies chest pain, exertional chest pressure/discomfort, nausea, syncope, shortnessof breath GI: denies constipation, diarrhea, dsyphagia, reflux symptoms, vomiting, melena : denies dysuria, frequency, incontinence, urgency Integumentary system: no lymphadenopathy, sweats, flushing Musculoskeletal: denies: myalgia, arthralgia Neurological: denies blurry or disturbed vision, numbness/weakness, dizziness Skin: No lumps, bumps or rashes. Objective: Vital signs in last 24 hours: As per nursing note Exam: This is a video visit. Patient is alert and oriented. She looks quite comfortable and in good spirits. [facility] Lab from April 27, 2020 showed hemoglobin 13.2 creatinine 0.6 B12 432 iron 78 iron saturation 20% ferritin 46.4 @IMAGEIMP@ Assessment: Plan: There are no active problems to display for this patient. History of iron deficiency anemia. Patient has a history of irritable bowel syndrome as well as gastritis. Patient is taking control pills and only have menstrual spotting without any bleeding.Labs showed normal hemoglobin and normal iron and B12 level. She is not on any iron replacement therapy. She will follow-up with us on as-needed basis. No further work-up is needed. ? TOBACCO COUNSELING She is not a tobacco user. 05/06/2020 Joe Callejas MD documented in this encounter Plan of Treatment Not on file documented as of this encounter Visit Diagnoses Diagnosis History of iron deficiency anemia Personal history of diseases of blood and blood-forming organs documented in this encounter Care Teams Impact Retail Service Merchandiser Relationship Specialty Start Date End Date Brad Chan MD [address] [place] [phone] PCP - General Emergency Medicine 04/10/20 documented as of this encounter
--- OUTSIDE RECORDS SUMMARY | 2024-07-28 05:19 | XMS_ITS | Encounter Summary ---
Author Organization [facility] Address [address] [place] [address] Care Team Providers Care Business Teacher Name Role Phone Brad Chan MD Primary Care Provider [phone] Encounter Details Date Type Department Care Team (Late st Contact Info) Description 03/20/2024 External Device Data STL ABSTRACTION Provider, Abstract [...] filedocumented in this encounter Care Teams Business Teacher Relationship Specialty Start Date End Date Brad Chan MD [address] [place] [phone] PCP - General Emergency Medicine 04/10/20 documented as of this encounter
--- OUTSIDE RECORDS SUMMARY | 2024-07-28 05:19 | XMS_ITS | Encounter Summary ---
Author Organization [facility] Address [address] [facility] Attn: Epic Prelude ADT [place] [phone] Care Team Providers Care Inclusion Paraeducator Name Role Phone Brad Chan MD Primary Care Provider [phone] Encounter Details Date Type Department Care Team (Latest Contact Info) Description 03/08/2021 Travel Social History Tobacco Use Types Packs/Day [...] on filedocumented in this encounter Care Teams Inclusion Paraeducator Relationship Specialty Start Date End Date Brad Chan MD [address] [place] [phone] PCP - General Emergency Medicine 04/10/20 documented as of this encounter
== END 2024-07-21 10:01 | disposition home or self-care (01) ==
PROVIDERS: Emergency Provider Nurse Practitioner Family
DX: J40 Bronchitis, not specified as acute or chronic (principal)
CPT/HCPCS: 99213; G0463

== ENCOUNTER 2024-12-13 09:50 | Outpatient (CLI) | payer OTHER, SELFPAY ==
--- OUTSIDE RECORDS SUMMARY | 2024-12-13 09:55 | XMS_ITS | Encounter Summary ---
Author Organization [facility] Address [address] [place] [address] Phone Care Team Providers Care Mis Director Name Role Phone Bessy Alcaraz APRN, ARAM Unavailable + [phone] Bessy Alcaraz APRN, ARAM Primary Care Provid er Molly Costello APRN, MINE ADMINISTRATOR SUPERVISOR Unavailable Encounter Details Date Type Department Care Team (Late st Contact Info) Description 11/12/2020 Telephone [facility] [address] [place] [address] Bessy Alcaraz APRN, MINE ADMINISTRATOR SUPERVISOR [address] [address] Social History Tobacco Use Types [...] 6week appointment Previous providers: Dr. Brad Chan [facility] in [place], [place] Cee Chavez (endo) [facility] in [place] (career development associate) documented in this encounter Plan of Treatment Upcoming Encounters Date Type Department Care Team (Latest Contact Info) Description 01/01/2025 3:00 PM CDT Outpatient Clinic Visit [facility] [address] [place] [address] Meryl Maurice, INTERNATIONAL ORGANIZER [address] [place] [address] Discharge Disposition: Discharged to home or Selfcare 03/13/2025 8:00 AM CDT Office Visit [facility] - Family [facility] [address] [place] [address] Bessy Alcaraz APRN, MINE ADMINISTRATOR SUPERVISOR #[address] [phone] documented as of this encounter Visit Diagnoses Not on filedocumented in this encounter Additional Health Concerns Infection Onset Date Last Indicated Resolved Time COVID - 19 Confirmed 03/10/2022 03/10/2022 022 12:16 AM CDT C. difficile Rule-Out 10/05/2023 10/05/20232023 12:19 AM CDT Assessment Noted Time PHQ-9 Depression Total Score: 12 021 3:00 PM CDT documented as of this encounter Care Teams Mis Director Relationship Specialty Start Date End Date Bessy Alcaraz APRN, ARAM #[address] [address] PCP - General Advanced Practice Nurse 10/30/20 Bessy Alcaraz APRN, ARAM #[address] [phone] Nurse Practitioner Advanced Practice Nurse 10/28/20 Molly Costello APRN, MINE ADMINISTRATOR SUPERVISOR [address] [place] [address] Nurse Practitioner Advanced Practice Nurse 10/05/23 documented as of this encounter
--- OUTSIDE RECORDS SUMMARY | 2024-12-13 09:55 | XMS_ITS | Encounter Summary ---
Author Organization [facility] Address [address] [place] [address] Phone Care Team Providers Care Manager Exchange Name Role Phone Bessy Alcaraz APRN, ARAM Unavailable + [phone] Bessy Alcaraz APRN, ARAM Primary Care Provid er Molly Costello APRN, WELDING INSTRUCTOR Unavailable Encounter Details Date Type Department Care Team (Late st Contact Info) Description 01/16/2024 Lab Requisition [facility] [address] [place] [address] System, Referring Not In [place] Social History Tobacco Use Types Packs/Day Years Used Date Smoking Tobacco: Never Smokeless Tobacco: Never Alcohol Use Standard Drinks/Week Comments Yes 0 (1 standard drink = 0.6 oz pur e alcohol) Rarely [facility] Utilities Answer Date Recorded In the past 12 months has [facility], gas, oil, or water [email or web address] threatened to shut off services in your home? No 11/27/2023 Social Connection and Isolation Panel [NHANES] A nswer Date Recorded In a typical week, how many times do you talk on the phone with family, friends, or neighbors? Patient declined 11/27/2023 How often do you get togethe r with friends or relatives? Twice a week 11/27/2023 How often do you attend bahai or sabianist serv ices? Never 11/27/2023 Do you belong to any clubs o r organizations such as bahai groups, unions, fraternal or athletic groups, or [...] Total Score - Questions 1-9 2 11/2023 [facility] - Occupational Stress Questionnaire Answer Date [...] place to sleep or slept in a alf (including now)? No 11/27/2023 Education Answer Date [...] 01/01/2025 3:00 PM CDT [facility] [address] [place] [address] Meryl Maurice, COMMERCIAL LOAN REVIEWER [address] [place] [address] Discharge Disposition: Discharged to home or Selfcare 03/13/2025 8:00 AM CDT Office Visit [facility] - Family Medicine [facility] [address] [place] [address] Bessy Alcaraz APRN, WELDING INSTRUCTOR #[address] [address] documented as of this encounter Goals Goal Patient Goal Type Associated Problems Recent Progress Patient-Stated? Author Behavioral Health Behavioral Health Improving( 2:54 PM CDT) Yes Agapito Cuenca, COMMERCIAL LOAN REVIEWER Note: I want to cope better with grief and depression over mom and dad's and other issues Goal/Objective: Decrease grieving responses; coping with sorrow and low moods. Anticipated Time Frame for Goal Completion: 6 months Goal Reviewed with: patient Readiness to change: Ready to change Department associated with goal: [facility] Steps to [...] 3.0 >=1.1 AI 01/17/2024 10:25 AM CDT [facility] Blood No Phlebotomy Charged / Unknown 01/16/2024 1:55 PM CDT 01/16/2024 3:19 PM CDT Narrative [facility] - 01/17/2024 10:25 AM CDT <= 0.8 Negative. No detectable VZV IgG antibody. 0.9 - 1.0 Equivocal >=1.1 Positive Antibody testing was performed by multiplex flow immunoassay on the BioPlex platform. us Referring Not In System IMMUNOLOGY ORDERABLES Fi nal Result Performing Organization Address City/[facility] Co de Phone Number [facility] [address] [place] [address], [place] * RUBEOLA (MEASLES) IGG (01/16/2024 1:55 PM CDT) MEASLES AB IGG 2.7 >=1.1 AI 01/17/2024 10:25 AM CDT [facility] Blood No Phlebotomy Charged / Unknown 01/16/2024 1:55 PM CDT 01/16/2024 3:19 PM CDT Narrative [facility] - 01/17/2024 10:25 AM CDT <= 0.8 Negative. No detectable Measles IgG antibody. 0.9 - 1.0 Equivocal >=1.1 Positive Antibody testing was performed by multiplex flow immunoassay on the BioPlex platform. us Referring Not In System IMMUNOLOGY ORDERABLES Fi nal Result Performing Organization Address [facility] de Phone Number [facility] [address] [place] [address], [place] * RUBELLA IMMUNITY IGG (01/16/2024 1:55 PM CDT) RUBELLA IMMUNITY Immune Immune, Invalid 01/17/2024 10:25 AM CDT [facility] Blood No Phlebotomy Charged / Unknown 01/16/2024 1:55 PM CDT 01/16/2024 3:19 PM CDT Narrative [facility] - 01/17/2024 10:25 AM CDT Antibody testing was performed by multiplex flow immunoassay on the BioPlex platform. us Referring Not In System CHEMISTRY ORDERABLES Fin al Result Performing Organization Address [facility] Co de Phone Number [facility] [address] [place] [address], [place] * MUMPS IGG (01/16/2024 1:55 PM CDT) Mumps Ab IgG 2.9 >=1.1 AI 01/17/2024 10:25 AM CDT [facility] Blood No Phlebotomy Charged / Unknown 01/16/2024 1:55 PM CDT 01/16/2024 3:19 PM CDT Narrative [facility] - 01/17/2024 10:25 AM CDT <= 0.8 Negative. No detectable Mumps IgG antibody. 0.9 - 1.0 Equivocal >=1.1 Positive Antibody testing was performed by multiplex flow immunoassay on the [employer] platform. us Referring Not In System IMMUNOLOGY ORDERABLES Fi nal Result [facility] [address] [place] [address], [place] * QUANTIFERON-TB GOLD PLUS (01/16/2024 1:55 PM CDT) NIL CONTROL 0.00 <8.01 IU/mL 01/18/2024 9:51 AM CDT [facility] TB ANTIGEN 1 0.00 <0.35 IU/mL 01/18/2024 9:51 AM CDT [facility] TB ANTIGEN 2 0.01 <0.35 IU/mL 01/18/2024 9:51 AM CDT [facility] MITOGEN CONTROL 10.00 >0.49 IU/mL 01/18/20 9:51 AM CDT [facility] INTEPRETATION TB NEGATIVE NEGATIVE, NEGATIVE (TB antigen response less than 25% of internal negative control value) 01/18/2024 9:51 AM CDT [facility] Comment:No immune response t o Mycobacterium tuberculosis antigens was noted. M. tuberculosis infection unlikely. Blood No Phlebotomy Charged / Unknown 01/16/2024 1:55 PM CDT 01/16/2024 3:19 PM CDT Narrative [facility] - 01/18/2024 9:51 AM CDT A POSITIVE [...] In System IMMUNOLOGY ORDERABLES Fi nal Result [facility] [address] [place] [address], * HEPATITIS B SURFACE ANTIBODY (HBSAB) (01/16/2024 1:55 PM CDT) HEPATITIS B SURFACE ANTIBODY <8.00 mIU/mL 01/16/2024 11:32 PM CDT [facility] Comment:Individual is consid ered not immune to HBV infection. Blood No Phlebotomy Charged / Unknown 01/16/2024 1:55 PM CDT 01/16/2024 3:19 PM CDT us Referring Not In System CHEMISTRY ORDERABLES Fin al Result [facility] [address] [place] [address], documented in this encounter Visit Diagnoses Not on filedocumented in this encounter Additional Health Concerns Assessment Noted Time PHQ-9 Depression Total Score: 2 09/26/19 1:32 PM STUDENT MINISTRIES DIRECTOR documented as of this encounter Care Teams Manager Exchange Relationship Specialty Start Date End Date Bessy Alcaraz APRN, ARAM [address] [phone] PCP - General Advanced Practice Nurse 10/30/20 Bessy Alcaraz APRN, ARAM #[address] [address] Nurse Practitioner Advanced Practice Nurse 10/28/20 Molly Costello APRN, WELDING INSTRUCTOR [address] [place] [address] Nurse Practitioner Advanced Practice Nurse 10/05/23 documented as of this encounter
--- OUTSIDE RECORDS SUMMARY | 2024-12-13 09:55 | XMS_ITS | Clinical Summary ---
Author Organization [facility] Address [address] [address] Phone Care Team Providers Care Shot Peen Operator Name Role Phone Bessy Alcaraz APRN, ARAM Unavailable [phone] Bessy Alcaraz APRN, CNP Primary Care Provid er Molly Costello APRN, ARAM Unavailable Allergies Active Allergy Reactions Criticality Noted Date Comments Etonogestrel-Ethinyl Estradiol Swelling High 04/05 Latex Other (see Comments) High 04/05/2024 Medications buPROPion (Wellbutrin XL) 300 MG TABLET SR 24 HR XL tabletIndications :MDD (major depressive disorder), recurrent episode, moderate (HCC),Anxiety Take 1 Tablet by mouth every morning. 90 Tablet 1 5 Active Lisdexamfetamine Dimesylate 60 MG CapsuleIndication s:Attention deficit hyperactivity disorder (ADHD), unspecified ADHD type Take 1 Capsule by mouth daily. 30 Capsule 5 Active Vyvanse 50 MG CapsuleIndication s:Attention deficit hyperactivity disorder (ADHD), unspecified ADHD type Take 1 Capsule by mouth daily. 30 Capsule 5 11/15/19 25 Discontinu ed(Dose adjustment ) Active Problems Problem Noted Date Diagnosed Date Screening for posttraumatic stress disorder (PTS D) positive 10/03/2024 Post traumatic stress disorder (PTSD) 10/03/2024 ADHD (attention deficit hype ractivity disorder), combined type 10/03/2024 Grief reaction 10/03/2024 MDD (major depressive disord er), recurrent episode, moderate 02/02/2022 Generalized anxiety disorder 02/02/2022 PTSD (post-traumatic stress disorder) 02/02/2022 Disordered eating 02/02/2022 History of iron deficiency anemia 05/06/2020 06/13/2023 Depressive disorder 03/10/2020 06/13/2023 Irritable bowel syndrome 07/02/2019 023 Acute cervicitis 02/21/2019 06/13/2023 Encounters Date Type Department Care Team Description 12/05/2024 2:45 PM CDT Outpatient Clinic Visit [facility] [address] [place] [address] Meryl Maurice LCSW Post traumatic stress disorder (PTSD) (Primary Dx); Grief reaction; ADHD (attention deficit hyperactivity disorder), combined type Discharge Disposition: Discharged to home or Selfcare 12/05/2024 Travel 11/18/2024 9:15 AM CDT [facility] [address] [place] [address] Meryl Maurice LCSW Grief reaction (Primary Dx); Post traumatic stress disorder (PTSD); ADHD (attention deficit hyperactivity disorder), combined type Discharge Disposition: Discharged to home or Selfcare 11/18/2024 Travel 11/17/2024 Travel 11/14/2024 8:00 AM CDT Office Visit [facility] [address] [place] [address] Bessy Alcaraz APRN, ARAM Attention deficit hyperactivity disorder (ADHD), unspecified ADHD type (Primary Dx); Anxiety; MDD (major depressive disorder), recurrent episode, moderate (HCC); Urinary urgency; Skin lesion Discharge Disposition: Discharged to home or Selfcare 11/14/2024 Travel 10/31/2024 8:30 AM CDT [facility] [address] [place] [address] Meryl Maurice, MANAGER OF INTERNAL AUDIT Grief reaction (Primary Dx); ADHD (attention deficit hyperactivity disorder), combined type; Post traumatic stress disorder (PTSD) Discharge Disposition: Discharged to home or Selfcare 10/31/2024 Travel 10/03/2024 1:00 PM CDT Outpatient Clinic [facility] [address] [facility] [place] [address] Meryl Maurice, MANAGER OF INTERNAL AUDIT Grief reaction (Primary Dx); ADHD (attention deficit hyperactivity disorder), combined type; Post traumatic stress disorder (PTSD); Screening for posttraumatic stress disorder (PTSD) positive Discharge Disposition: Discharged to home or Selfcare 10/03/2024 Travel from Last 3 Months Immunizations Immunization Administration Dates Next Due Covid-19, Mrna, Lnp-s, Pf, 3 0 Mcg/0.3 Ml Dose ([employer]) 12/26/2020,12/05/2020 DTP-Hib 06/24/1997,04/17/1997,02/11/1997 Hepatitis A, Pediatric, Unsp [...] Brother 2 Noel Bipolar Disorder Father Skipper Cancer Father Skipper Heart Attack Father Skipper High Cholesterol Father Skipper Anxiety disorder Maternal Aunt Hypertension Maternal Aunt Hypothyroidism Maternal Aunt Hypothyroidism Maternal Grandmother Bipolar Disorder Mother Laura Chronic Obstructive Pulmonary Disease Mother Wan da Drug Abuse Mother Laura Hepatitis Mother Laura B Lung Cancer Paternal Aunt Stroke Paternal Aunt Lung Cancer Paternal Grandmother Lung Cancer Paternal Uncle Stroke Paternal Uncle Relation Name Status Comments Brother 1 Lucas Alive Brother 2 Noel Alive Father Skipper Maternal Aunt Maternal Grandfather Maternal Grandmother Alive Mother Laura Paternal Aunt Paternal Grandfather Paternal Grandmother brain c ancer Paternal Uncle Social History Tobacco Use Types Packs/Day Years Used Date Smoking Tobacco: Never Smokeless Tobacco: Never Tobacco Cessation:Counseling Given: Not Answered Alcohol Use Standard Drinks/Week Comments Not Currently 0 (1 standard drink = 0.6 oz pur e alcohol) Rarely [facility] Utilities Answer Date Recorded In [...] declined 06/03/2024 How often do you attend druze or presybeterian serv ices? Patient declined 06/03/2024 Do you belong to any clubs o r organizations such as druze groups, unions, fraternal or athletic groups, or [...] Date Recorded Total Score - Questions 1-9 15 03/1 09/2024 [facility] - [...] place to sleep or slept in a penitentiary (including now)? No 11/27/2023 Housing Stability Vital [...] were you homeless or living in a penitentiary (including now)? No 06/03/2024 Education Answer Date [...] Reading Time Taken Comments Blood Pressure 118/74 11/14/2024 7:58 AM CDT Pulse 62 11/14/2024 7:58 AM CDT Temperature 35.9 C (96.7 F) 11/14/2024 7:58 AM CDT Respiratory Rate 18 11/14/2024 7:58 AM CDT Oxygen Saturation 98% 11/14/2024 7:58 AM CDT Inhaled Oxygen Concentration - - Weight 80.9 kg (178 lb 4.8 oz) 11/14/2024 7:58 A M CDT Height 152.4 cm (5') 11/14/2024 7:58 AM CDT Body Mass Index 34.82 11/14/2024 7:58 AM CDT Plan of Treatment Upcoming Encounters Date Type Department Care Team (Latest Contact Info) Description 01/01/2025 3:00 PM CDT Outpatient Clinic Visit [facility] [address] [place] [phone] Meryl Maurice, MANAGER OF INTERNAL AUDIT [address] [place] [address] Discharge Disposition: Discharged to home or Selfcare 03/13/2025 8:00 AM CDT [facility] [address] [place] [phone] Bessy Alcaraz APRN, [employer] [address] [phone] Health Maintenance Due Date Last Done Comments Pap Smear 2017 SARS-COV-2 Immunization ( season) 2024 07/20/2021, 12/26/2020, 12/05/2020 DTaP/Tdap/Td Immunization (5 - Td or Tdap) 11/01/2032 11/01/2022, 06/24/1997, 04/17/1997, Additional history exists Respiratory Syncytial Virus (RSV) Immunization (Adult) (1 - 1-dose 75+ series) 12/12/2071 Hepatitis B Immunization Completed 997, 02/11/1997, 1996 Meningococcal Immunization (ACWY) Completed 04/22/2015 Human Papillomavirus (HPV) Immunization Completed 07/04/2019, 02/25/2019, 09/21/2018, Additional history exists Hepatitis C Virus (HCV) Screening Completed 03/29/2022 Influenza Immunization Completed , 05/22/2023, 05/18/2022, Additional history exists Pneumococcal Immunization Combined Aged Out No longer eligible based on patient's age to complete this topic Rotavirus Immunization Aged Out No lo nger eligible based on patient's age to complete this topic Goals Goal Patient Goal Type Associated Problems Recent Progress Patient-Stated? Author Behavioral Health Behavioral Health Improving( 2:54 PM CDT) Yes Agapito Cuenca, MANAGER OF INTERNAL AUDIT Note: I want to cope better with grief and depression over mom and dad's and other issues Goal/Objective: Decrease grieving responses; coping with sorrow and low moods. Anticipated Time Frame for Goal Completion: 6 months Goal Reviewed with: patient Readiness to change: Ready to change Department associated with goal: [facility] Steps to achieve goal: [...] aid in managing problematic responses to grief. I want to regulate my moods and emotions better. Behavioral Health Improving( 2:54 PM CDT) Yes Meryl Maurice MANAGER OF INTERNAL AUDIT Note: Goal/Objective: Improve coping strategies for regulating mood and emotions. Anticipated Time Frame for Goal Completion: 6 months Goal Reviewed with: patient Readiness to change: Ready to change Department associated with goal: [facility] Steps to achieve goal: 1. will identify, at least three, triggers to distressing mood change. 2. will identify, at least two ways/skills to prevent depressed (or other problematic) mood. 3. will identify, at least two ways/skills to cope with depressed (or other problematic) mood. 4. will implement one prevention and one coping skill and evaluate effectiveness 5. Will attend individual and/or group therapy at least 1x/month at least 6 sessions Procedures Procedure Name Priority Date/Time Associated Diagnosis Comments HEPATITIS C ANTIBODY Routine 03/29/2022 1:42 PM CDT Exposure to blood or body fluid from Last 3 Months or Most Recently Relevant to Health Maintenance Results * HEPATITIS C ANTIBODY (03/29/2022 1:42 PM CDT) hepatitis C antibody 0.09 <1 S/CO [facility] ARCH [id number] B 03/29/2022 9:36 PM CDT [facility] Comment: Signal/Cutoff ratio < 0.79 is Nondetected Signal/Cutoff ratio 0.80-0.99 is Grayzone Signal/Cutoff ratio > 0.99 is Detected Supplemental assays are recommended if signal/cutoff ratio is >/=1.00. Signal/cutoff ratio result >/= 5.00 is 97% predictive of positivity for recombinant immunoblot assay (RIBA) and will be reported to the [place] Department of Public Health as required. Blood Venipuncture / Unknown 03/29/2022 1:42 PM CDT 03/29/2022 2:37 PM CDT us Bessy Alcaraz APRN, CNP CHEMISTRY ORDERABLES Final Result [facility] [address] [place] [address], [place] from Last 3 Months or Most Recently Relevant to Health Maintenance Insurance [facility] [place] [facility] * Guarantor: [facility] [employer] Account Type Relation to Patient Date of Phone Billing Address Institutional Other [address] [place] [address] Care Teams Shot Peen Operator Relationship Specialty Start Date End Date Bessy Alcaraz APRN, ARAM [address] [address] PCP - General Advanced Practice Nurse 10/30/20 Bessy Alcaraz APRN, [employer] [address] [phone] Nurse Practitioner Advanced Practice Nurse 10/28/20 Molly Costello APRN, [employer] [address] [place] [address] Nurse Practitioner Advanced Practice Nurse 10/05/23
--- OUTSIDE RECORDS SUMMARY | 2024-12-13 09:56 | XMS_ITS | Referral Summary ---
Author Organization [facility] Address [address] [place] [address] Care Team Providers Care Shank Carrier Name Role Phone Bessy Alcaraz NP Primary Care Provider + Referring, Unknown MD Unavailable Unavailabl e Encounters Date Type Department Care Team Description 12/05/2024 1:30 PM CDT Clinical Support [facility] [address] [facility] [address] [place] [address] Missed period (Primary Dx); Encounter for anatomic survey; Encounter to establish gestational age using ultrasound from Last 3 Months Allergies Active Allergy [...] 1 capsule (25 mg total) by mouth coil binder before breakfast 4 Active Active Problems No known active problems Immunizations Immunization Administration Dates Next Due DTP / HiB [...] on file Legal Sex Female 10:43 AM INFORMATION RESOURCES DIRECTOR Gender Identity Not on file Sexual Orientation Not on file Last Filed Vital Signs Vital Sign Reading Time Taken Comments Blood Pressure 118/72 06/01/2024 6:07 PM INFORMATION RESOURCES DIRECTOR Pulse 65 06/01/2024 6:07 PM INFORMATION RESOURCES DIRECTOR Temperature 36.8 C (98.2 F) 06/01/2024 6:07 PM INFORMATION RESOURCES DIRECTOR Respiratory Rate 18 06/01/2024 6:07 PM INFORMATION RESOURCES DIRECTOR Oxygen Saturation 98% 06/01/2024 6:07 PM INFORMATION RESOURCES DIRECTOR Inhaled Oxygen Concentration - - Weight 82.6 kg (182 lb) 06/01/2024 6:07 PM INFORMATION RESOURCES DIRECTOR Height 152.4 cm (5') 05/23/2024 6:52 PM CDT Body Mass Index 35.54 05/23/2024 6:52 PM CDT Plan of Treatment Not on file Procedures Procedure Name Priority Date/Time Associated Diagnosis Comments POCT HCG, URINE Routine 12/05/2024 1:49 PM CDT Missed period from Last 3 Months Results * (ABNORMAL) POCT hCG, urine (12/05/2024 1:49 PM CDT) HCG, ur, POC Positive(A) Negative Lot Number [id number] QC Backgroud Clear Acceptable QC Control Line Acceptable Urine 12/05/2024 1:49 PM CDT lFaquita Jorge MD POINT OF CARE TEST ORDERABLES Final Result from Last 3 Months Insurance [employer] Care Teams Shank Carrier Relationship Specialty Start Date End Date Bessy Alcaraz NP [address] [address] PCP - General Nurse Practitioner 09/19/22 Referring, MD Haylie 09/19/22
--- OUTSIDE RECORDS SUMMARY | 2024-12-13 09:56 | XMS_ITS | Clinical Summary ---
Author Organization [facility] Address [address] [place] [address] Care Team Providers Care Video Game Programmer Name Role Phone Unavailable Primary Care Provider Unavailabl e Source Comments [facility],non-owned Affiliates and Associated Physician Practices is amultiple site organization consisting of ambulatory clinics and hospital sitesin [place], [place], [place] and [place]. This disclosure is being madepursuant to the Care Everywhere program and may not contain all information available regarding this patient. Last updated 18.[facility] Allergies No known active allergies Medications * Be aware that medications may not be up to date on this document. Alwaysverify current medications with the patient. No known medications Active Problems Problem Noted Date Diagnosed Date Temporomandibular joint (TMJ) pain 08/14/2020 Immunizations Immunization Administration Dates Next Due INFLUENZA VACCINE 04/24/2020 Family History Medical History Relation Name Comments Cancer - Other Father None Known Mother Relation Name Status Comments Father Mother Social History Tobacco Use Types Packs/Day Years Used Date Smoking Tobacco: Never Smokeless Tobacco: Never Comments Unknown Sex and Gender Information Value Date Recorded Sex Assigned at Not on file Legal Sex Female 5:38 AM GRANITE FABRICATOR Gender Identity Not on file Sexual Orientation Not on file Last Filed Vital Signs Vital Sign Reading Time Taken Comments Blood Pressure 127/78 08/14/2020 3:19 PM GRANITE FABRICATOR Pulse 82 08/14/2020 3:19 PM GRANITE FABRICATOR Temperature 37 C (98.6 F) 08/14/2020 3:19 PM GRANITE FABRICATOR Respiratory Rate 16 08/14/2020 3:19 PM GRANITE FABRICATOR Oxygen Saturation - - Inhaled Oxygen Concentration - - Weight 87.1 kg (192 lb) 08/14/2020 3:19 PM GRANITE FABRICATOR Height 157.5 cm (5' 2 ) 08/14/2020 3:19 PM GRANITE FABRICATOR Body Mass Index 35.12 08/14/2020 3:19 PM GRANITE FABRICATOR Plan of Treatment Health Maintenance Due Date Last Done Comments PAP SMEAR 1996 HIV SCREENING 12/12/2011 HEPATITIS C SCREENING 12/07/2014 DTAP/TDAP/TD VACCINES (1 - Tdap) 12/12/2015 HEPATITIS B VACCINE (1 of 3 - 19+ 3-dose series) 12/12/2015 COVID-19 VACCINE (1 - 2023-2 5 season) 2024 DEPRESSION SCREENING 07/24/2024 INFLUENZA VACCINE (Season Ended) 2025 04/24/2020, 05/17/2019 ZOSTER VACCINE (1 of 2) 2046 HIB VACCINE Aged Out No longer eligi ble based on patient's age to complete this topic HPV VACCINE Aged Out No longer eligi ble based on patient's age to complete this topic MENINGOCOCCAL (Group B) VACCINE SHARED DECISION-MAKING Aged Out No longer eligible based on patient's age to complete this topic MENINGOCOCCAL GROUPS A/C/Y/W VACCINE Aged Out No longer eligible b ased on patient's age to complete this topic PNEUMOCOCCAL VACCINE Aged Out No long er eligible based on patient's age to complete this topic Insurance MEDICAID - OUT OF [place] [address] [facility] [place] [place] [address] Member Subscriber Plan / Payer (Ef fective for All Dates) Name:Cee March Relation to Subscriber:Self Name:CEE PEREZ Payer ID:Not on file Group ID:Not on file Type:Medicaid [place] Address: [place] [id number] MED[place] - [place] [facility]
--- OUTSIDE RECORDS SUMMARY | 2024-12-13 09:56 | XMS_ITS | Clinical Summary ---
Author Organization [facility] Address [address] [place] [address] Care Team Providers Care Trimmer Buffing Wheel Name Role Phone Bessy Alcaraz NP Primary Care Provider + Referring, Unknown MD Unavailable Unavailabl e Allergies Active Allergy Reactions [...] 1 capsule (25 mg total) by mouth gasoline plant operator before breakfast 4 Active Active Problems No known active problems Encounters Date Type Department Care Team Description 12/05/2024 1:30 PM CDT Clinical Support Kyree Blackmon [address] [facility] [address], [place] [address] Missed period (Primary Dx); Encounter for anatomic survey; Encounter to establish gestational age using ultrasound from Last 3 Months Immunizations Immunization Administration Dates Next Due DTP [...] on file Legal Sex Female 10:43 AM SENIOR ELECTRICAL PROJECT MANAGER Gender Identity Not on file Sexual Orientation Not on file Obstetrics History Last Filed Vital Signs Vital Sign Reading Time Taken Comments Blood Pressure 118/72 06/01/2024 6:07 PM SENIOR ELECTRICAL PROJECT MANAGER Pulse 65 06/01/2024 6:07 PM SENIOR ELECTRICAL PROJECT MANAGER Temperature 36.8 C (98.2 F) 06/01/2024 6:07 PM SENIOR ELECTRICAL PROJECT MANAGER Respiratory Rate 18 06/01/2024 6:07 PM SENIOR ELECTRICAL PROJECT MANAGER Oxygen Saturation 98% 06/01/2024 6:07 PM SENIOR ELECTRICAL PROJECT MANAGER Inhaled Oxygen Concentration - - Weight 82.6 kg (182 lb) 06/01/2024 6:07 PM SENIOR ELECTRICAL PROJECT MANAGER Height 152.4 cm (5') 05/23/2024 6:52 PM CDT Body Mass Index 35.54 05/23/2024 6:52 PM CDT Plan of Treatment Health Maintenance Due Date Last Done Comments Cervical Cancer Screening 1996 Depression Screening 1996 Hepatitis C Screening 1996 Varicella Vaccines (2 of 2 - 2-dose childhood series) 01/26/2009 11/03/2008 Regular Well Visit/Exam 18-64 2014 Covid-19 Vaccine ( season) 2024 07/20/2021, 12/26/2020, 12/05/2020 DTaP/Tdap/Td Vaccine (5 - Td or Tdap) 11/01/2032 11/01/2022, 06/24/1997, 04/17/1997, Additional history exists Hepatitis B Screening Completed 06/24/1997 , 02/11/1997, 1996 HPV Vaccines Completed 07/04/2019, 080 11/2018, 09/21/2018, Additional history exists Influenza Vaccine Completed 05/08/2024, , 05/18/2022, Additional history exists Pneumococcal vaccine <65 Aged [...] Line Acceptable Urine 12/05/2024 1:49 PM CDT Flaquita Jorge MD POINT OF CARE TEST ORDERABLES Final Result from Last 3 Months Insurance [facility] CHOICE PLUS Care Teams Trimmer Buffing Wheel Relationship Specialty Start Date End Date Bessy Alcaraz NP [address] [address] PCP - General Nurse Practitioner 09/19/22 Referring, Unknown, 09/19/22
--- OUTSIDE RECORDS SUMMARY | 2024-12-13 09:56 | XMS_ITS | Clinical Summary ---
Author [facility] Address [address] [facility] [facility] [place] [address] Care Team Providers Care Youth Care Professional Name Role Phone Brad Chan MD Primary Care Provider [phone] Allergies No known active allergies Medications escitalopram oxalate (LEXAPRO) 20 mg tablet every morning. 0 Active levonorgestreL (ROSEMARIE) 14 mcg/24 hrs (3 yrs) 13.5 mg IUD by Intrauterine route. Active Active Problems Problem Noted Date Diagnosed Date History of iron deficiency anemia 05/06/2020 Encounters Date Type Department Care Team Description 10/22/2024 External Device Data [facility] ABSTRACTION Provider, Abstract 09/28/2024 External Device Data [facility] ABSTRACTION Provider, Abstract 09/27/2024 External Device Data [facility] ABSTRACTION Provider, Abstract 09/24/2024 External Device Data [facility] ABSTRACTION Provider, Abstract from Last 3 Months Family History Medical History Relation Name Comments Healthy Brother 1 Healthy Brother 2 Cancer Father Heart Disease Father Relation Name Status Comments Brother 1 Alive Brother 2 Alive Father Mother Alive Social History Tobacco Use Types Packs/Day Years Used Date Smoking Tobacco: Never Smokeless Tobacco: Never Alcohol Use Standard Drinks/Week Comments Yes 0 (1 standard drink = 0.6 oz pur e alcohol) OCCASIONLLY Comments No Sex and Gender Information Value Date Recorded Sex Assigned at Not on file Legal Sex Female 10:43 AM CDT Gender Identity Not on file Sexual Orientation Not on file Last Filed Vital Signs Vital Sign Reading Time Taken Comments Blood Pressure 126/69 04/27/2020 3:12 PM CDT Pulse 68 04/27/2020 3:12 PM CDT Temperature 36.7 C (98 F) 05/06/2020 2:39 PM CDT Respiratory Rate 22 [...] Last Done Comments CERVICAL CANCER SCREENING 2017 HPV/Cotest (-) 2017 PAP SMEAR 2017 INFLUENZA VACCINE (#1) 2024 , 05/18/2022, 05/17/2019 COVID-19 Vaccine (2023-2 5 season) 2024 12/26/2020, 12/05/2020 DTAP/TDAP/TD VACCINES (5 - T d or Tdap) 11/01/2032 11/01/2022, 06/24/1997, 04/17/1997, Additional history exists HEPATITIS B VACCINES Completed 06/24/1997, 02/11/1997, 1996 HPV VACCINES Completed 07/04/2019, 11/2018, 09/21/2018, Additional history exists Insurance [employer] [place] Symptify [facility] Symform [id number] Care Teams Youth Care Professional Relationship Specialty Start Date End Date Brad Chan MD [address] [place] [phone] PCP - General Emergency Medicine 04/10/20
[2024-12-13 10:51] LABS: Beta HCG Quantitative 16.09 mIU/ML
== END 2024-12-13 09:51 | disposition home or self-care (01) ==
PROVIDERS: PCP Nurse Practitioner; Visit Provider Obstetrics & Gynecology
DX: Z34.90 Encounter for supervision of normal pregnancy, unspecified, unspecified trimester (principal); Z3A.00 Weeks of gestation of pregnancy not specified
CPT/HCPCS: 36415; 84702

== ENCOUNTER 2024-12-17 09:32 | Outpatient (CLI) | payer OTHER, SELFPAY ==
--- OUTSIDE RECORDS SUMMARY | 2024-12-17 09:35 | XMS_ITS | Clinical Summary ---
Author Organization [email or web address] Address [address] [place] [address] Care Team Providers Care Manufacturing Team Leader Name Role Phone Unavailable Primary Care Provider Unavailabl e Source Comments [facility],non-owned Affiliates and Associated Physician Practices is amultiple site organization consisting of ambulatory clinics and hospital sitesin [place], [place], [place] and [place]. This disclosure is being madepursuant to the Care Everywhere program and may not contain all information available regarding this patient. Last updated 18.[email or web address] Allergies No known active allergies Medications * [...] on file Legal Sex Female 5:38 AM DIRECTOR OF REGIONAL SALES Gender Identity Not on file Sexual Orientation Not on file Last Filed Vital Signs Vital Sign Reading Time Taken Comments Blood Pressure 127/78 08/14/2020 3:19 PM DIRECTOR OF REGIONAL SALES Pulse 82 08/14/2020 3:19 PM DIRECTOR OF REGIONAL SALES Temperature 37 C (98.6 F) 08/14/2020 3:19 PM DIRECTOR OF REGIONAL SALES Respiratory Rate 16 08/14/2020 3:19 PM DIRECTOR OF REGIONAL SALES Oxygen Saturation - - Inhaled Oxygen Concentration - - Weight 87.1 kg (192 lb) 08/14/2020 3:19 PM DIRECTOR OF REGIONAL SALES Height 157.5 cm (5' 2) 08/14/2020 3:19 PM DIRECTOR OF REGIONAL SALES Body Mass Index 35.12 08/14/2020 3:19 PM DIRECTOR OF REGIONAL SALES Plan of Treatment Health Maintenance Due Date [...] topic Insurance MEDICAID - OUT [place] [place] [id number] [place] - [place] [facility] * Guarantor: Cee March Account Type Relation to Patient Date of Phone Billing Address Personal/Family Spouse
--- OUTSIDE RECORDS SUMMARY | 2024-12-17 09:35 | XMS_ITS | Clinical Summary ---
Author Organization [facility] Address [address] [place] [address] Care Team Providers Care Senior Software Engineer Name Role Phone Bessy Alcaraz NP Primary [...] 1 capsule (25 mg total) by mouth ornithology teacher before breakfast 4 Active Active Problems No known active problems Encounters Date Type Department Care Team Description 12/05/2024 1:30 PM CDT Clinical Support Kyree Blackmon 4 [facility] [address] [address] Missed period (Primary Dx); Encounter [...] on file Legal Sex Female 10:43 AM GENERATION MANAGER Gender Identity Not on file Sexual Orientation Not on file Obstetrics History Last Filed Vital Signs Vital Sign Reading Time Taken Comments Blood Pressure 118/72 06/01/2024 6:07 PM GENERATION MANAGER Pulse 65 06/01/2024 6:07 PM GENERATION MANAGER Temperature 36.8 C (98.2 F) 06/01/2024 6:07 PM GENERATION MANAGER Respiratory Rate 18 06/01/2024 6:07 PM GENERATION MANAGER Oxygen Saturation 98% 06/01/2024 6:07 PM GENERATION MANAGER Inhaled Oxygen Concentration - - Weight 82.6 kg (182 lb) 06/01/2024 6:07 PM GENERATION MANAGER Height 152.4 cm (5') 05/23/2024 6:52 [...] Final Result from Last 3 Months Insurance [facility] CHOICE PLUS Care Teams Senior Software Engineer Relationship Specialty Start Date End Date Bessy Alcaraz NP [address] [address] PCP - General Nurse Practitioner 09/19/22 Referring, Unknown, 09/19/22
--- OUTSIDE RECORDS SUMMARY | 2024-12-17 09:35 | XMS_ITS | Referral Summary ---
Author Organization [facility] Address [address] [place] [address] Care Team Providers Care Machine Presser Name Role Phone Bessy Alcaraz NP Primary Care Provider + Referring, Unknown MD Unavailable Unavailabl e Encounters Date Type Department Care Team Description 12/05/2024 1:30 PM CDT Clinical Support [facility] 4 [facility] [address] [place] [address] Missed period (Primary Dx); Encounter [...] 1 capsule (25 mg total) by mouth oil and gas well treatment operator before breakfast 4 Active Active Problems [...] on file Legal Sex Female 10:43 AM HYDROCHLORIC ACID OPERATOR Gender Identity Not on file Sexual Orientation Not on file Last Filed Vital Signs Vital Sign Reading Time Taken Comments Blood Pressure 118/72 06/01/2024 6:07 PM HYDROCHLORIC ACID OPERATOR Pulse 65 06/01/2024 6:07 PM HYDROCHLORIC ACID OPERATOR Temperature 36.8 C (98.2 F) 06/01/2024 6:07 PM HYDROCHLORIC ACID OPERATOR Respiratory Rate 18 06/01/2024 6:07 PM HYDROCHLORIC ACID OPERATOR Oxygen Saturation 98% 06/01/2024 6:07 PM HYDROCHLORIC ACID OPERATOR Inhaled Oxygen Concentration - - Weight 82.6 kg (182 lb) 06/01/2024 6:07 PM HYDROCHLORIC ACID OPERATOR Height 152.4 cm (5') 05/23/2024 6:52 PM [...] Final Result from Last 3 Months Insurance [facility] CHOICE PLUS [facility] HMO/PPO Address: [place] [address] Care Teams Machine Presser Relationship Specialty Start Date End Date Bessy Alcaraz NP [address] [address] PCP - General Nurse Practitioner 09/19/22 Referring, MD Haylie 09/19/22
--- OUTSIDE RECORDS SUMMARY | 2024-12-17 09:35 | XMS_ITS | Encounter Summary ---
Author Organization [facility] Address [address] [place] [address] Phone Care Team Providers Care Photography Instructor Name Role Phone Bessy Alcaraz APRN, ARAM Unavailable + [phone] Bessy Alcaraz APRN, ARAM Primary Care Provid er Molly Costello APRN, TOBACCO SPRAYER Unavailable Encounter Details Date Type Department Care Team (Late st Contact Info) Description 01/16/2024 Lab Requisition [facility] [address] [place] [address] System, Referring Not In [place] Social History Tobacco Use Types Packs/Day Years Used Date Smoking Tobacco: Never Smokeless Tobacco: Never Alcohol Use Standard Drinks/Week Comments Yes 0 (1 standard drink = 0.6 oz pur e alcohol) Rarely [facility] Utilities Answer Date Recorded In the past 12 months has Xfire, gas, oil, or water Dasher threatened to shut off services in your home? No 11/27/2023 Social Connection and Isolation Panel [NHANES] A nswer Date Recorded In a typical week, how many times do you talk on the phone with family, friends, or neighbors? Patient declined 11/27/2023 How often do you get togethe r with friends or relatives? Twice a week 11/27/2023 How often do you attend baptist or yazidism serv ices? Never 11/27/2023 Do you belong to any clubs o r organizations such as baptist groups, unions, fraternal or athletic groups, or [...] Total Score - Questions 1-9 2 11/2023 [facility] - Occupational Stress Questionnaire Answer Date [...] in a prison (including now)? No 11/27/2023 Education Answer Date [...] 01/01/2025 3:00 PM CDT Outpatient [facility] [address] [place] [address] Meryl Maurice, FOUNTAIN SUPERVISOR [address] [place] [address] Discharge Disposition: Discharged to home or Selfcare 03/13/2025 8:00 AM CDT Office Visit [facility] - Family [facility] [address] [place] [address] Bessy Alcaraz APRN, TOBACCO SPRAYER [address] [address] documented as of this encounter Goals Goal Patient Goal Type Associated Problems Recent Progress Patient-Stated? Author Behavioral Health Behavioral Health Improving( 2:54 PM CDT) Yes Agapito Cuenca, FOUNTAIN SUPERVISOR Note: I want to cope better with grief and depression over mom and dad's and other issues Goal/Objective: Decrease grieving responses; coping with sorrow and low moods. Anticipated Time Frame for Goal Completion: 6 months Goal Reviewed with: patient Readiness to change: Ready to change Department associated with goal: [facility] Steps to achieve [...] 3.0 >=1.1 AI 01/17/2024 10:25 AM CDT [facility] Blood No Phlebotomy Charged / Unknown 01/16/2024 1:55 PM CDT 01/16/2024 3:19 PM CDT Narrative [facility] - 01/17/2024 10:25 AM CDT <= 0.8 Negative. No detectable VZV IgG antibody. 0.9 - 1.0 Equivocal >=1.1 Positive Antibody testing was performed by multiplex flow immunoassay on the [employer] platform. us Referring Not In System IMMUNOLOGY ORDERABLES Fi nal Result Performing Organization Address City/[facility] Co de Phone Number [facility] [address] [place] [address], [place] * RUBEOLA (MEASLES) IGG (01/16/2024 1:55 PM CDT) MEASLES AB IGG 2.7 >=1.1 AI 01/17/2024 10:25 AM CDT [facility] Blood No Phlebotomy Charged / Unknown 01/16/2024 1:55 PM CDT 01/16/2024 3:19 PM CDT Narrative [facility] - 01/17/2024 10:25 AM CDT <= 0.8 Negative. No detectable Measles IgG antibody. 0.9 - 1.0 Equivocal >=1.1 Positive Antibody testing was performed by multiplex flow immunoassay on the [employer] platform. us Referring Not In System IMMUNOLOGY ORDERABLES Fi nal Result Performing Organization Address [facility] de Phone Number [facility] [address] [place] [address], [place] * RUBELLA IMMUNITY IGG (01/16/2024 1:55 PM CDT) RUBELLA IMMUNITY Immune Immune, Invalid 01/17/2024 10:25 AM CDT [facility] Blood No Phlebotomy Charged / Unknown 01/16/2024 1:55 PM CDT 01/16/2024 3:19 PM CDT Narrative [facility] - 01/17/2024 10:25 AM CDT Antibody testing was performed by multiplex flow immunoassay on the [employer] platform. us Referring Not In System CHEMISTRY ORDERABLES Fin al Result Performing Organization Address [facility] Co de Phone Number [facility] [address] [place] [address], [place] * MUMPS IGG (01/16/2024 1:55 PM CDT) Mumps Ab IgG 2.9 >=1.1 AI 01/17/2024 10:25 AM CDT [facility] Blood No Phlebotomy Charged / Unknown 01/16/2024 1:55 PM CDT 01/16/2024 3:19 PM CDT Narrative [facility] - 01/17/2024 10:25 AM CDT <= 0.8 Negative. No detectable Mumps IgG antibody. 0.9 - 1.0 Equivocal >=1.1 Positive Antibody testing was performed by multiplex flow immunoassay on the [employer] platform. us Referring Not In System IMMUNOLOGY ORDERABLES Fi nal Result [facility] [address] [place] [address], [place] * QUANTIFERON-TB GOLD PLUS (01/16/2024 1:55 PM CDT) NIL CONTROL 0.00 <8.01 IU/mL 01/18/2024 9:51 AM CDT [facility] TB ANTIGEN 1 0.00 <0.35 IU/mL 01/18/2024 9:51 AM CDT [facility] TB ANTIGEN 2 0.01 <0.35 IU/mL 01/18/2024 9:51 AM CDT [facility] MITOGEN CONTROL 10.00 >0.49 IU/mL 01/18/20 9:51 AM CDT [facility] INTEPRETATION TB NEGATIVE NEGATIVE, NEGATIVE (TB antigen response less than 25% of internal negative control value) 01/18/2024 9:51 AM CDT [facility] Comment:No immune response t o Mycobacterium tuberculosis antigens was noted. M. tuberculosis infection unlikely. Blood No Phlebotomy Charged / Unknown 01/16/2024 1:55 PM CDT 01/16/2024 3:19 PM CDT Narrative [facility] - 01/18/2024 9:51 AM CDT A POSITIVE [...] In System IMMUNOLOGY ORDERABLES Fi nal Result [facility] [address] [place] [address], * HEPATITIS B SURFACE ANTIBODY (HBSAB) (01/16/2024 1:55 PM CDT) HEPATITIS B SURFACE ANTIBODY <8.00 mIU/mL 01/16/2024 11:32 PM CDT [facility] Comment:Individual is consid ered not immune to HBV infection. Blood No Phlebotomy Charged / Unknown 01/16/2024 1:55 PM CDT 01/16/2024 3:19 PM CDT us Referring Not In System CHEMISTRY ORDERABLES Fin al Result [facility] [address] [place] [address], documented in this encounter Visit Diagnoses Not on filedocumented in this encounter Additional Health Concerns Assessment Noted Time PHQ-9 Depression Total Score: 2 09/26/19 1:32 PM BATTERY MECHANIC documented as of this encounter Care Teams Photography Instructor Relationship Specialty Start Date End Date Bessy Alcaraz APRN, ARAM [address] [address] PCP - General Advanced Practice Nurse 10/30/20 Bessy Alcaraz APRN, ARAM [address] [address] Nurse Practitioner Advanced Practice Nurse 10/28/20 Molly Costello APRN, TOBACCO SPRAYER [address] [place] [address] Nurse Practitioner Advanced Practice Nurse 10/05/23 documented as of this encounter
--- OUTSIDE RECORDS SUMMARY | 2024-12-17 09:35 | XMS_ITS | Encounter Summary ---
Author Organization [facility] Address [address] [place] [address] Phone Care Team Providers Care Soccer Referee Name Role Phone Bessy Alcaraz APRN, AARM Unavailable + [phone] Bessy Alcaraz APRN, ARAM Primary Care Provid er Molly Costello APRN, MILLINERY WORKER Unavailable Encounter Details Date Type Department Care Team (Late st Contact Info) Description 11/12/2020 Telephone [facility] [address] [place] [address] Bessy Alcaraz APRN, MILLINERY WORKER [address] [address] Social History Tobacco Use Types [...] 6week appointment Previous providers: Dr. Brad Chan [facility] in [place], [place] Cee Chavez (endo) [facility] in [place] (finance clerk) documented in this encounter Plan of Treatment Upcoming Encounters Date Type Department Care Team (Latest Contact Info) Description 01/01/2025 3:00 PM CDT Outpatient Clinic Visit [facility] [address] [place] [address] Meryl Maurice, SEWING TEACHER [address] [place] [address] Discharge Disposition: Discharged to home or Selfcare 03/13/2025 8:00 AM CDT Office Visit [facility] Medical Group - Family [facility] [address] [place] [address] Bessy Alcaraz APRN, MILLINERY WORKER [address] [address] documented as of this encounter Visit Diagnoses Not on filedocumented in this encounter Additional Health Concerns Infection Onset Date Last Indicated Resolved Time COVID - 19 Confirmed 03/10/2022 03/10/2022 022 12:16 AM CDT C. difficile Rule-Out 10/05/2023 10/05/20232023 12:19 AM CDT Assessment Noted Time PHQ-9 Depression Total Score: 12 021 3:00 PM CDT documented as of this encounter Care Teams Soccer Referee Relationship Specialty Start Date End Date Bessy Alcaraz APRN, ARAM #[address] [address] PCP - General Advanced Practice Nurse 10/30/20 Bessy Alcaraz APRN, ARAM #[address] [address] Nurse Practitioner Advanced Practice Nurse 10/28/20 Molly Costello APRN, MILLINERY WORKER [address] [place] [address] Nurse Practitioner Advanced Practice Nurse 10/05/23 documented as of this encounter
--- OUTSIDE RECORDS SUMMARY | 2024-12-17 09:35 | XMS_ITS | Clinical Summary ---
Author Organization [facility] Address [address] [facility] [place] [address] Care Team Providers Care Nursery Attendant Name Role Phone Brad Chan MD Primary Care Provider [phone] Allergies No known active allergies Medications escitalopram [...] Additional history exists Insurance [employer] [place] Qraved [facility] [employer] [id number] Care Teams Nursery Attendant Relationship Specialty Start Date End Date Brad Chan MD [address] [place] [phone] PCP - General Emergency Medicine 04/10/20
--- OUTSIDE RECORDS SUMMARY | 2024-12-17 09:35 | XMS_ITS | Data Portability ---
Author Organization [facility] Deandre Henson Address [address] [place] [address] Care Team Providers Care Automotive Porter Name Role Phone YEISON BENAVIDES Primary Care Provider Unavailkaleigh e Assessment No assessment recorded. Plan of Treatment Reminders Order Date Submit Date Provider Last Modified By Organization Details Last Modified Time Details Appointments None recorded. Lab urinalysi s, dipstick 2023 In-Office Order, Internal Use Only DO Not Attach Compendium DO Not Attach Compendium, Do Not Delete/merge, [id number] 15:56:02 vaginal pathogens panel, SUNNY+probe , vaginal fluid 2023 KALAMAZOO [facility], [address], [place], [address], 4 06:21:36 TSH, ultra-sen sitive, serum 2023 024 [facility], [address] [facility] [address], [place], [address], 4 06:23:36 prolactin , serum 2023 024 [facility], [address] [facility] [address], [place], [address], 4 06:23:37 unlisted lab - DHEA-S+17 -ohp+tesd /T 2023 RENZO [facility], [address], [place], [address], 4 06:23:35 cytology report, thin prep, smear or scraping, cervical or vaginal 2023 [facility], [address], [address] [address], [place], [address], 4 10:15:32 urinalysi s, dipstick 2020 021 [email or web address] In-Office Order, Internal Use Only DO Not Attach Compendium DO Not Attach Compendium, Do Not Delete/merge, [id number] 1 09:23:18 test, urine 2019 020 [email or web address] 1 In-Office Order, Internal Use Only DO Not Attach Compendium DO Not Attach Compendium, Do Not Delete/merge, [id number] 0 18:05:35 bacterial vaginosis panel, vaginal 2019 020 [facility] (Centralized Electronic Ordering - All Locations), Patient Can Go To The Location Of Their Choice, [id number] 0 11:57:53 culture, vaginal/r ectal, streptoco ccus group B 2019 020 [facility] (Centralized Electronic Ordering - All Locations), Patient Can Go To The Location Of Their Choice, [id number] 0 11:57:53 Referral None recorded. Procedures None recorded. Surgeries None recorded. Imaging US, pelvis, complete 2023 024 [facility], [address] [facility] , [place], [address], 4 02:58:35 US, pelvis, transabdo lindsey + transvagi nal [address] ([facility] Scheduling), [address] [place], [address], 1 14:35:07 Medication Orders multivita min tablet 2019 021 [facility], [address], [place], [place], [id number], 1 16:27:43 Calcium with Vitamin D 600 mg-10 mcg (400 unit) tablet 2019 021 [email or web address] [id number] [facility] #58245, [address], [place], [place], [id number], 1 09:37:29 Kyleena 17.5 mcg/24 hr (up to 5 years) 19.5 mg intrauter ine device 2019 020 [email or web address] [facility] #89601, [address], [place], [place], [id number], 4 14:57:34 RepHresh vaginal gel 2019 020 [facility] #53400, [address], [place], [place], [id number], 0 16:22:19 RepHresh Pro-B 2.5 billion cell capsule 2019 020 [facility] #82190, [address], [place], [place], [id number], 0 16:22:07 Ortho Tri-Cycle n (28) 0.18 mg(7)/0.2 15mg(7)/0 .25 mg(7)-0.0 35 mg tablet 2019 020 [facility] #61395, [address], [place], [place], [id number], 0 16:22:16 Kyleena 17.5 mcg/24 hr (up to 5 years) 19.5 mg intrauter ine device 2019 [email or web address] Not available 4 14:57:34 multivita min tablet 2019 [facility] #26198, [address], [place], [place], [id number], 1 16:27:40 Calcium with Vitamin D 600 mg-10 mcg (400 unit) tablet 2019 [facility] #67286, [address], [place], [place], [id number], 1 16:27:20 escitalop maria eugenia 20 mg tablet [facility], [address], [place], [place], [id number], 0 16:22:33 Patient TargetsNo targets recorded. Patient Instructions Encounter Date Encounter Id Patient Instructions Last Modified By Organization Details Last Modified Time 04/06/2020 [id number] anemia: care instructions [email or web address] Not available 04/06/2020 15:25:39 Discussed IUD removal and insertion in Aug 2020. [email or web address] Not available 04/06/2020 17:56:56 06/04/2024 [id number] painful urinatio n (dysuria): care instructions augabi [...] Abnormal Flag Note LastModifiedBy Organization Detail LastModifiedTime 07/02/20 20 07/02/2020 pregn john test, urine HCG negati ve Not Available In-Office Order Internal Use Only DO Not Attach Compendium DO Not Attach Compendium, Do Not Delete/merge, [id number] 07/02/2020 16:38:55 04/06/20 20 04/08/2020 bacte rial vagin osis panel , vagin al trich vag by SUNNY NEGATI VE negati ve Not Available [facility] ([facility]) [address] [place], [address], 04/09/2020 11:57:53 04/06/20 20 04/08/2020 bacte rial vagin osis panel , vagin al hsv 1 SUNNY NEGATI VE negati ve Not Available [facility] ([facility]) [address] [place], [address], 04/09/2020 11:57:53 04/06/2004/08/2020 bacte rial vagin osis panel , vagin al hsv 2 SUNNY NEGATI VE negati ve Not Available [facility] ([facility]) [address] [place], [address], 04/09/2020 11:57:53 04/06/2004/09/2020 bacte rial vagin osis panel , vagin al atopobium vaginae LOW - 0 score Not Available [facility] ([facility]) [address] [place], [address], 04/09/2020 11:57:53 04/06/2004/09/2020 bacte rial vagin osis panel , vagin al bvab 2 LOW - 0 score Not Available [facility] ([facility]) [address] [place], [address], 04/09/2020 11:57:53 04/06/2004/09/2020 bacte rial vagin osis [...] prese nce of BV. This test was sanjana pablo and its perfo rmanc e naomy cteri stics deter mined by [facility]. It has not been clear ed or appro srikanth by the Food and Drug Admin istra tion. The FDA has deter mined that such clear ance or appro jah is not neces sujata. Not Available [facility] ([facility]) [address] [place], [address], 04/09/2020 11:57:53 04/06/2004/09/2020 bacte rial vagin osis panel , vagin al samira albicans, SUNNY NEGATI VE negati ve Not Available [facility] ([facility]) [address] [place], [address], 04/09/2020 11:57:53 04/06/2004/09/2020 bacte rial vagin osis panel , vagin al samira glabrata, SUNNY NEGATI VE negati ve Not Available [facility] ([facility]) [address] [place], [address], 04/09/2020 11:57:53 04/06/2004/09/2020 bacte rial vagin osis panel , vagin al chlamydia trachomatis, SUNNY NEGATI VE negati ve Not Available [facility] ([facility]) [address] [place], [address], 04/09/2020 11:57:53 04/06/2004/09/2020 bacte rial vagin osis panel , vagin al neisseria gonorrhoeae, SUNNY NEGATI VE negati ve Not Available [facility] ([facility]) [address] [place], [address], 04/09/2020 11:57:53 04/06/2004/08/2020 cultu re, vagin al/re ctal, strep tococ cus group B strep gp B SUNNY NEGATI VE negati ve [facility] rs [facility] Disea se Contr ol and Preve ntion ([facility]) and Ameri can Congr ess of Obste [...] n is noted . Not Available [facility] ([facility]) [address] [facility], [place], [address], 04/09/2020 11:57:53 06/08/20 21 06/08/2021 urina lysis , dipst ick Leukocytes Trace Not Available In-Offi ce Order Internal Use Only DO Not Attach Compendium DO Not Attach Compendium, Do Not Delete/merge, [id number] 06/08/2021 16:32:46 06/08/20 21 06/08/2021 urina lysis , dipst ick Nitrite negati ve Not Available In-Office Order Internal Use Only DO Not Attach Compendium DO Not Attach Compendium, Do Not Delete/merge, [id number] 06/08/2021 16:32:46 06/08/20 21 06/08/2021 urina lysis [...] 06/08/2021 urina lysis , dipst ick Specific [place] 1.030 Not Available In-Off ice Order Internal [...] DO Not Attach Compendium, Do Not Delete/merge, [id number] 06/08/2021 16:32:46 06/04/20 24 06/05/2024 NUSWA B VAGIN ITIS PLUS (VG+) atopobium vaginae LOW - 0 score Not Available [facility] ([facility]) [address] [facility], [place], [address], 06/06/2024 06:21:36 06/04/20 24 06/05/2024 NUSWA B VAGIN ITIS PLUS (VG+) bvab 2 LOW - 0 score Not Available [facility] ([facility]) [address] [facility], [place], [address], 06/06/2024 06:21:36 06/04/20 24 06/05/2024 NUA B VAGIN ITIS PLUS (VG+) megasphaera 1 [...] prese nce of BV. Not Available [facility] ([facility]) [address] [facility], [place], [address], 06/06/2024 06:21:36 06/04/20 24 06/05/2024 NUA B VAGIN ITIS PLUS (VG+) samira albicans, SUNNY NEGATI VE negati ve Not Available [facility] ([facility]) [address] [facility], [place], [address], 06/06/2024 06:21:36 06/04/20 24 06/05/2024 NUSWA B VAGIN ITIS PLUS (VG+) samira glabrata, SUNNY NEGATI VE negati ve Not Available [facility] ([facility]) [address] [facility], [place], [address], 06/06/2024 06:21:36 06/04/20 24 06/06/2024 NUSWA B VAGIN ITIS PLUS (VG+) trich vag by SUNNY NEGATI VE negati ve Not Available [facility] ([facility]) [address] [facility], [place], [address], 06/06/2024 06:21:36 06/04/20 24 06/06/2024 NUA B VAGIN ITIS PLUS (VG+) chlamydia trachomatis, SUNNY NEGATI VE negati ve Not Available [facility] ([facility]) [address] [facility], [place], [address], 06/06/2024 06:21:36 06/04/20 24 06/06/2024 NUA B VAGIN ITIS PLUS (VG+) neisseria gonorrhoeae, SUNNY NEGATI VE negati ve Not Available [facility] ([facility]) [address] [facility], [place], [address], 06/06/2024 06:21:36 06/04/20 24 06/11/2024 IGP, RFX APTIM A HPV ASCU diagnosis: COMMEN T NEGAT GEOVANNA FOR INTRA EPITH ELIAL LESIO N OR NOAH BURT . Not Available [facility] ([facility]) [address] [facility], [place], [address], 06/11/2024 10:15:32 06/04/20 24 06/11/2024 IGP, RFX APTIM A HPV ASCU specimen adequacy: COMMEN T Satis facto ry for evalu ation . Endoc ervic al and/o r squam ous metap lasti c cells (endo cervi larissa compo nent) are prese nt. Not Available [facility] ([facility]) [address] [facility], [place], [address], 06/11/2024 10:15:32 06/04/20 24 06/11/2024 IGP, RFX APTIM A HPV ASCU clinician provided ICD10: SOLE Dorado Z12.4 R30.0 N93.8 Not Available [facility] ([facility]) [address] [place], [address], 06/11/2024 10:15:32 06/04/20 24 06/11/2024 IGP, RFX APTIM A HPV ASCU performed by: Keon Donaldson (ASCP ) Not Available [facility] ([facility]) [address] [place], [address], 06/11/2024 10:15:32 06/04/20 24 06/11/2024 IGP, RFX APTIM A HPV ASCU . . Not Available [facility] ([facility]) [address] [facility], [place], [address], 06/11/2024 10:15:32 06/04/20 24 06/11/2024 IGP, RFX [...] ts do occur . Not Available [facility] ([facility]) [address] [place], [address], 06/11/2024 10:15:32 06/04/20 24 06/11/2024 IGP, RFX APTIM A HPV ASCU test methodology: SOLE Dorado This liqui d based ThinP rep(R ) pap test was scree josef with the use of an image guide lala systjoe m. Not Available [facility] ([facility]) [address] [place], [address], 06/11/2024 10:15:32 06/04/20 24 06/11/2024 IGP, RFX APTIM A HPV ASCU . COMMEN T The HPV DNA refle x crite day were not met with this speci men resul t there fore, no HPV testi ng was perfo rmed. Not Available [facility] ([facility]) [address] [facility], [place], [address], 06/11/2024 10:15:32 06/04/20 24 06/05/2024 DHEA- S+17- OHP+T ESD/T DHEA-sulfate 334.0 ug/dL 84.8-3 78.0 Not Available [facility] ([facility]) [address] [facility], [place], [address], 06/12/2024 06:23:35 06/04/20 24 06/05/2024 DHEA- S+17- OHP+T ESD/T testosterone 29 NG/dL 13-71 Not Available [facility] ([facility]) [address] [place], [address], 06/12/2024 06:23:35 06/04/20 24 06/09/2024 DHEA- S+17- OHP+T ESD/T free testosterone (direct) 1.5 pg/mL 0.0-4. 2 Not Available [facility] ([facility]) [address] [place], [address], 06/12/2024 06:23:35 06/04/20 24 06/12/2024 DHEA- S+17- OHP+T ESD/T 17-oh progesterone lcms 26 NG/dL Adult Femal e Folli cular 15 - 70 Lutea l 35 - 290 Not Available [facility] ([facility]) [address] [place], [address], 06/12/2024 06:23:35 06/04/20 24 06/05/2024 TSH RFX ON ABNOR MAL TO FREE T4 TSH 1.950 uIU/m L 0.450- 4.500 Not Available [facility] ([facility]) [address] [facility], [place], [address], 06/12/2024 06:23:36 06/04/20 24 06/05/2024 PROLA CTIN prolactin 10.8 NG/mL 4.8-33 .4 Not Available [facility] ([facility]) [address] [facility], [place], [address], 06/12/2024 06:23:37 06/04/20 24 06/04/2024 urina lysis , dipst ick Leukocytes Negati ve Not Available In-Office Order Internal Use Only DO Not Attach Compendium DO Not Attach Compendium, Do Not Delete/merge, [id number] 06/04/2024 15:28:27 06/04/20 24 06/04/2024 urina lysis , dipst ick Nitrite negati ve Not Available In-Office Order Internal Use Only DO Not Attach Compendium DO Not Attach Compendium, Do Not Delete/merge, [id number] 06/04/2024 15:28:27 06/04/20 24 06/04/2024 urina lysis , dipst ick Urobilinogen .2 Not Available In-Of fice Order Internal Use Only DO Not Attach Compendium DO Not Attach Compendium, Do Not Delete/merge, [id number] 06/04/2024 15:28:27 06/04/20 24 06/04/2024 urina lysis , dipst ick Protein Negati ve Not Available In-Office Order Internal Use Only DO Not Attach Compendium DO Not Attach Compendium, Do Not Delete/merge, [id number] 06/04/2024 15:28:27 06/04/20 24 06/04/2024 urina lysis , dipst ick pH 5.5 Not Available In-Office Order Internal Use Only DO Not Attach Compendium DO Not Attach Compendium, Do Not Delete/merge, [id number] 06/04/2024 15:28:27 06/04/20 24 06/04/2024 urina lysis , dipst ick Blood Negati ve Not Available In-Office Order Internal Use Only DO Not Attach Compendium DO Not Attach Compendium, Do Not Delete/merge, [id number] 06/04/2024 15:28:27 06/04/20 24 06/04/2024 urina lysis , dipst ick Specific [place] 1.025 Not Available In-Off ice Order Internal Use Only DO Not Attach Compendium DO Not Attach Compendium, Do Not Delete/merge, [id number] 06/04/2024 15:28:27 06/04/20 24 06/04/2024 urina lysis , dipst ick Ketone Negati ve Not Available In-Office Order Internal Use Only DO Not Attach Compendium DO Not Attach Compendium, Do Not Delete/merge, 06/04/2024 15:28:27 06/04/20 24 06/04/2024 urina lysis , dipst ick Bilirubin Negati ve Not Available In-Office Order Internal Use Only DO Not Attach Compendium DO Not Attach Compendium, Do Not Delete/merge, [id number] 06/04/2024 15:28:27 06/04/20 24 06/04/2024 urina lysis , dipst ick Glucose Negati ve Not Available In-Office Order Internal Use Only DO Not Attach Compendium DO Not Attach Compendium, Do Not Delete/merge, 06/04/2024 15:28:27 06/04/20 24 06/04/2024 urina lysis , dipst ick Appearance Slight ly Cloudy Not Available In-Office Order Internal Use Only DO Not Attach Compendium DO Not Attach Compendium, Do Not Delete/merge, 06/04/2024 15:28:27 06/04/20 24 06/04/2024 urina lysis , dipst ick Color Yellow Not Available In-Office Order Internal Use Only DO Not Attach Compendium DO Not Attach Compendium, Do Not Delete/merge, 06/04/2024 15:28:27 07/06/20 24 07/01/2024 US, juan david s, compl ete No observ ation record ed. [facility] (Radiology) [address] [place], [address], 07/09/2024 12:20:25 Result Notes None recorded. Problems Name Problem SNOMED Code Status Onset Date Resolution Date Notes Provider Name and Address Organization Details Recorded Time Acute urinary tract infection 042611703 Completed 201806/04/2024 Yeison Benavides MD Attn: Deborah lyon,[address] [facility], [place], [address], [place] - [facility] 4 14:48:29 Bacterial vaginosis 924091353 Completed 201806/04/2024 Yeison Benavides MD Attn: Deborah lyon,[address] [facility], [place], [address], [place] [facility] 14:48:31 Acute cerviciti s 86744705 Completed 201806/04/2024 Yeison Benavides MD Attn: Deborah lyon,[address] [facility], [place], [address], [place] [facility] 4 14:48:26 Irritable bowel syndrome 68262352 Completed 201806/04/2024 Yeison Benavides MD Attn: Deborah lyon,[address] [facility], [place], [address], [place] [facility] 4 14:48:36 Depressiv e disorder 73408164 Active 2019 Yeison Benavides MD Attn: Deborah lyon,[address] [facility], [place], [address], [place] [facility] 4 14:48:41 Vaginitis 86904173 Completed 201906/04/2024 Yeison Benavides MD Attn: Accountzachary g,[address] [facility], [place], [address], [place] [facility] 4 14:48:46 Acne 89014968 Completed 201906/04/2024 Yeison Benavides MD Attn: Deborah lyon,[address] [facility], [place], [address], [place] [facility] 4 14:48:23 Past history of pre-eclam psia 171158442815 100 Active 2023 Yeison Benavides MD Attn: Deborah lyon,[address] [place], [address], [place] [facility] 4 15:50:51 Inflammat ion of cervix 67972402 Active 2023 Yeison Benavides MD Attn: Deborah lyon,[address] [place], [address], [place] [facility] 4 16:10:50 Dysuria 63245609 Active 2023 Yeison Benavides MD Attn: Deborah lyon,[address] [place], [address], [facility] - [facility] 4 16:10:53 Abnormal uterine bleeding 450518535650 00 Active 2023 Yeison Benavides MD Attn: Deborah lyon,[address] [place], [address], [place] [facility] 4 16:10:56 Adult health examinati on Active 2023 Yeison Benavides MD Attn: Deborah lyon,[address] [place], [address], [place] [facility] 4 16:10:58 Problem Notes None recorded. Procedures Surgical History Date Name Laterality Status Provider Name and Address Organization Details Recorded Time 07/02/20 20 IUD Replacement completed KAILEY ROBLES Attn: Accounting,[address] [place], [address], [place] [facility] 07/02/2020 16:36:44 02/23/20 19 Date of Last Pap Smear completed Megan Armendariz [place] - [facility] 04/06/2020 14:39:16 09/19/19 18 IUD Insertion completed Jose C Caba [place] - [facility] 09/19/2017 17:19:35 Tonsillectomy completed Tracy Townsend [place] - [facility] 01/19/2016 15:07:30 Imaging Results None recorded. Procedure Notes None recorded. Medical Equipment None Reported. Allergies Allergen ID Allergen Name Allergen Category Reaction Reaction Severity Criticality Documentation Date Start Date Code Code System Note Provider Name and Address Organization Details Recorded Time 010863 NuvaRing medicatio n edema severe Not available 09/12/2017 12791 9 RxNorm Tracy Townsend, DEO null, [place] - [facility] 8 15:27:10 098982 latex environme nt,medica tion other severe Not available 09/19/2017 86378 91 RxNorm pt state s react ion to latex condo ms, vagin al swell ing, cb-rm a Megan DEO Armendariz null, [place] - [facility] 8 15:16:02 468432 Monistat Simple Therapy medicatio n swelling Not available Not available 06/04/2024 17066 72 RxNorm LORENA Hawthorne null, [place] - [facility] [...] Not Available Not Available No t Available Junel FE 08/12 (28) 1 mg-20 mcg (21)/75 mg (7) tablet Take 1 tablet every day by oral route. 09/20 completed Not Available Not Available Not Available Tri-Sprint ec (28) 0.18 mg(7)/0.21 5 mg(7)/0.25 mg(7)-0.03 5 mg tablet Take 1 tablet every day [...] Body mass index (BMI) Body weight Systolic And Diastolic Provider Name and Address Organization Details Last Updated DateTime 08/21/2020 152.4 cm 37.3 kg/m2 09344.29 g 114/88 mm[Hg] Lata Bennett MA [facility] 08/21/2020 16:13:19 Date Recorded Body mass index (BMI) Body weight Systolic And Diastolic Provider Name and Address Organization Details Last Updated DateTime 04/06/2020 35.7 kg/m2 38704.4 g 114/78 mm[Hg] Megan Armendariz MA [facility] 04/06/2020 14:55:46 Date Recorded Body height Provider Name an d Address Organization Details Last Updated DateTime 04/06/2020 152.4 cm Cee March MA [facility] 0 14:40:20 Date Recorded Body height Body mass index (BMI) Body weight Respiratory rate Body temperature Oxygen saturation Oxygen saturation in Arterial blood by Pulse oximetry Heart rate Systolic And Diastolic Provider Name and Address Organization Details Last Updated DateTime 4 152.4 cm 35.2 kg/m2 76266.1 3 g 18 /min 98.2 [degF] 98 % 98 % 106 /min 120/83 mm[Hg] LORENA Hawthorne [facility] 4 15:05:25 Date Recorded Body height Body mass index (BMI) Body weight Systolic And Diastolic Provider Name and Address Organization Details Last Updated DateTime 06/08/2021 152.4 cm 34.6 kg/m2 65990.28 g 110/66 mm[Hg] Lata Bennett MA [facility] 06/08/2021 16:34:20 Date Recorded Body height Body mass index (BMI) Body weight Systolic And Diastolic Provider Name and Address Organization Details Last Updated DateTime 07/02/2020 152.4 cm 36.9 kg/m2 57231.96 g 110/68 mm[Hg] Nakia DEO Chirinos [facility] 07/02/2020 16:21:17 Social History Question Answer Notes LastModified by Organizat ion Details LastModified Time Tobacco Smoking Status Never Smoker Tracy DEO Townsend null, [place] - [facility] 01/19/2016 15:07:31 Do You Have An Advance Directive? No Information n ot available 04/21/2016 Is Blood Transfusion Acceptable In An Emergency? Yes Information not available 04/21/2016 What Is Your Level Of Caffeine Consumption? Occasional Information not available 09/20/2018 How Much Tobacco Do You Chew? None Information not available 01/19/2016 In The 14 Days Before Symptom Onset, Have You Had Close Contact With A Laboratory-confirm ed COVID-19 While That Case Was Ill? No Information n ot available 06/04/2024 In The 14 Days Before Symptom Onset, Have You Had Close Contact With A Person Who Is Under Investigation For COVID-19 While That Person Was Ill? No Information not available 06/04/2024 Have You Been To An Area Known To Be High Risk For COVID-19? No Information not available 06/04/2024 What Type Of Diet Are You Following? REGULAR [email or web address] Information n ot available 01/19/2016 Which Illicit Or Recreational Drugs Have You Used? Denies [email or web address] Information not available 01/19/2016 Education 12 Information no t available 01/19/2016 Live Alone Or With Others? With Others [email or web address] Information not available 01/19/2016 What Was The [...] 04/21/2016 What Is Your Relationship Status? Single [email or web address] Information not available 01/19/2016 Do You Use Your Seat Belt Or Car Seat Routinely? Yes Information not available 06/08/2021 Seat Belts Used Routinely Yes [email or web address] Information not available 01/19/2016 Are You Sexually Active? Yes Information not available 04/21/2016 Do You Have Smoke And Carbon Monoxide Detectors In Your Home? Yes Information not available 06/08/2021 Are You Passively Exposed To Smoke? No Information no t available 06/08/2021 How Much Tobacco Do You Smoke? No [email or web address] Information not available 01/19/2016 General Stress Level High Information not available 09/20/2018 Do You Use Sunscreen Routinely? Yes Information not available 04/21/2016 Has Tobacco Cessation Counseling Been Provided? Yes Information not available 06/04/2024 On What Date Was Tobacco Cessation Counseling Provided? 06/04/2024 Information not available 06/04/2024 How Many Years Have You Smoked Tobacco? 0 [email or web address] Information not available 01/19/2016 Sex: Unknown Functional Status Question Answer Note LastModified by Organizat ion Details LastModified Time Do you use any illicit or recreational drugs? No Information not available 06/08/2021 Do you or have you ever used any other forms of tobacco or nicotine? No Information not available 06/04/2024 What is your level of alcohol consumption? None Information not available 06/04/2024 Do you or have you ever used smokeless tobacco? Never used smokeless tobacco Information not available 07/03/2019 Are you currently employed? 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 Never used electronic cigarettes Information not available 07/03/2019 What is your exercise level? Occasional [email or web address] Information not available 01/19/2016 Mental Status None recorded. Family History Relationship Description Onset Age of this Age Resolved Age Notes LastModified by Organization Details LastModified Time Mother Alcoholism [email or web address] Not availa ble 04/21/2016 16:09:19 Father Lilliana ahuja [email or web address] Not available 2015 16:09:19 Notes:06/04/24 Medical History Condition Response Coronary Artery Disease N Kidney Cyst N Blood Diseases N Hyperthyroidism N Blood disorders N Blood Transfusion N MRSA N Emphysema N Depression Y COPD N Blood Clots N Pneumonia N Premature N Peripheral Arterial Disease [...] Hospitalizations N Brain Tumors N Acne N Skin Problems N Eating Disorder N Meningitis N Constipation N Tuberculosis N Cerebral Palsy N Myocardial Infarction N Asthma N Substance Abuse N Peripheral Vascular Disease N Vertigo N Sleep Disorder N Cirrhosis N Pulmonary Embolism N Chicken Pox N Hematologic Disease N Flomax Use Past or Present N Anxiety/Depression N Thyroid Disease N Colon [...] Disorder N Colon Polyps N Heart Attack (MS) N Diabetes N Cardiomyopathy N Blood Transfusions N Heart Problems/Murmur N Eye Trauma N Congestive Heart Failure (CHF) N Valvular Heart Disease N Hyperlipidemia N Double Vision N Abuse/Domestic Violence N Hepatitis B N Lupus N Epilepsy/Seizures N Reflux/GERD N Aneurysm N Heart Disease N Bronchitis N Pre-Eclampsia N Hypertension N Heart Failure N Other Y Gout [...] completed SURYA JAFFE MD Attn: Accounting,[address] [place], [address], [place] [facility] 06/04/2024 15:48:20 COVID-19, mRNA, LNP-S, PF, 30 mcg/0.3 mL dose 1 completed SURYA JAFFE MD Attn: Accounting,[address] [place], [address], [place] [facility] 06/04/2024 15:48:20 COVID-19, mRNA, LNP-S, PF, 30 mcg/0.3 mL dose 1 completed SURYA JAFFE MD Attn: Accounting,[address], [place], [place], [address] [place] [address], [place] [facility] 06/04/2024 15:48:20 COVID-19, mRNA, LNP-S, PF, 30 mcg/0.3 mL dose 1 completed SURYA JAFFE MD Attn: Accounting,[address], [place], [address] [place] [address], [place] [facility] 06/04/2024 15:48:20 Tdap 3 completed SURYA JAFFE MD Attn: Accounting,[address], [place], [address] [place] [address], [place] [facility] 06/04/2024 15:48:20 varicella 9 completed SURYA JAFFE MD Attn: Accounting,[address], [place], [address] [place] [address], [place] [facility] 06/04/2024 15:48:20 OPV 7 completed SURYA JAFFE MD Attn: Accounting,[address], [place], [address] [place] [address], [place] [facility] 06/04/2024 15:48:20 OPV 7 completed SURYA JAFFE MD Attn: Accounting,[address], [place], [address] [place] [address], [place] [facility] 06/04/2024 15:48:20 DTP-Hib 7 completed SURYA JAFFE MD Attn: Accounting,[address], [place], [address] [place] [address], [place] [facility] 06/04/2024 15:48:20 DTP-Hib 7 completed SURYA JAFFE MD Attn: Accounting,[address], [place], [address] [place] [address], [place] [facility] 06/04/2024 15:48:20 DTP-Hib 7 completed SURYA JAFFE MD Attn: Accounting,[address] [facility], [place], [address], [place] [facility] 06/04/2024 15:48:20 Hep B, adolescent or pediatric 7 completed SURYA JAFFE MD Attn: Accounting,[address] [facility], [place], [address], [place] [facility] 06/04/2024 15:48:20 Hep B, adolescent or pediatric 7 completed SURYA JAFFE MD Attn: Accounting,[address] [facility], [place], [address], [place] [facility] 06/04/2024 15:48:20 Hep B, adolescent or pediatric 7 completed SURYA JAFFE MD Attn: Accounting,[address] [facility], [place], [address] [place] [address], [facility] 06/04/2024 15:48:20 Hep A, pediatric, unspecified formulation 9 completed SURYA JAFFE MD Attn: Accounting,[address] [facility], [place], [address], [place] [facility] 06/04/2024 15:48:20 meningococcal C conjugate 9 completed SURYA JAFFE MD Attn: Accounting,[address] [facility], [place], [address] [place] [address], [facility] - [facility] 06/04/2024 15:48:20 meningococcal MCV4P 5 completed SURYA JAFFE MD Attn: Accounting,[address] [facility], [place], [address] [place] [address], [place] [facility] 06/04/2024 15:48:20 Influenza, split virus, quadrivalent, PF 2 completed SURYA JAFFE MD Attn: Accounting,[address] [facility], [place], [address] [place] [address], [place] [facility] 06/04/2024 15:48:20 Influenza, split virus, quadrivalent, PF 3 completed SURYA JAFFE MD Attn: Accounting,[address] [facility], [place], [address], [facility] - [facility] 06/04/2024 15:48:20 HPV9 9 completed Not Available [facility] 08/10/2019 02:51:02 HPV9 9 completed Not Available [facility] 08/10/2019 02:46:06 HPV9 9 completed Not Available [facility] 08/10/2019 02:38:48 Past Encounters Encounter ID Performer Location Encounter Start Date Encounter Closed Date Diagnosis/Indication Diagnosis SNOMED-CT Code Diagnosis ICD10 Code Diagnosis Note [id number] [facility] [address] [place] [id number] 01/15/2016 14:11:14 01/15/2016 15:40:30 Family planning education 982025770 Z30.02 [id number] Daren Holt MD [facility] [address] [place] [address] [id number] 0 02/25/2016 11:12:21 02/29/2016 11:23:29 Family planning education 989056909 Z30.02 [id number] Daren Holt MD [facility]CNC MACHINE OPERATOR) [address] [place] [address] [id number] 0 04/21/2016 14:49:52 04/27/2016 11:51:21 Initial prescription of oral contraception 287549492 Z30.479 [id number] [facility] [address] [place] [address] [id number] 0 09/12/2017 14:44:25 09/12/2017 16:01:18 Family planning surveillance 553233656 Z30.09 Vaginismus due to non-psychogenic cause 611264672 N94.2 Dyspareunia 94611459 N94 .10 [id number] MD Dudley Chandler (CNC MACHINE OPERATOR) [address] [place] [id number] 0 09/19/2017 14:38:41 09/19/2017 16:10:43 Insertion of intrauterine contraceptive device 99550939 Z30.430 Family rosa nning surveillance 744890396 Z30.09 [id number] MD Dudley Chandler (CNC MACHINE OPERATOR) [address] [place] [address] [id number] 0 11/16/2017 14:39:05 11/16/2017 15:55:31 Surveillance of intrauterine device contraception done 4072227931 33901 Z30.40 Family rosa nning surveillance 748351080 Z30.09 Exposure t o sexually transmissible disorder 689624888 Z20.2 Bacterial vaginosis 4197 46432 N76.0 [id number] MD Dudley Chandler (CNC MACHINE OPERATOR) [address] [place] [address] [id number] 0 09/20/2018 11:47:15 09/20/2018 15:25:25 Family planning surveillance 336659355 Z30.09 Active or passive immunization 562424875 Z23 Surveillan ce of intrauterine device contraception done 1295315486 82350 Z30.40 Exposure t o sexually transmissible disorder 380674039 Z20.2 [id number] [facility]PER[facility] [address] [place] [address] [id number] 0 11/29/2018 09:45:15 11/30/2018 09:29:59 Acute urinary tract infection 431188196 N39.0 Family rosa nning surveillance 777600252 Z30.09 [id number] MD Dudley Chandler (CNC MACHINE OPERATOR) [address] [place] [address] [id number] 0 02/21/2019 14:09:38 02/22/2019 13:03:00 Active or passive immunization 842136082 Z23 Family rosa nning surveillance 404114020 Z30.09 Gynecologi c examination 41504866 Z01.419 Z11.51 Surveillan ce of intrauterine device contraception done 4469141632 49258 Z30.40 Bacterial vaginosis 4197 86928 N76.0 Acute cervicitis 1662485 0 N72 Exposure t o sexually transmissible disorder 845394467 Z20.2 [id number] MD Dudley Chandler (CNC MACHINE OPERATOR) [address] [place] [address] [id number] 0 07/03/2019 14:43:04 07/03/2019 16:48:49 Family planning surveillance 268453080 Z30.09 Acute cervicitis 4588987 0 N72 Surveillan ce of intrauterine device contraception done 1649067486 72506 Z30.40 Urinary incontinence 165 970113 R32 Active or passive immunization 980927324 Z23 [id number] [facility] OPERATOR[facility] [address] [place] [address] [id number] 0 03/10/2020 10:25:52 03/11/2020 07:14:27 Family planning surveillance 150260635 Z30.09 Gynecologi c examination 37743458 Z01.419 Z11.51 Candidiasis of vagina 72 413361 B37.3 Vulvitis 32795904 N76.2 Depressive disorder 3548 9007 F32.9 [id number] MD Dudley Chandler (CNC MACHINE OPERATOR) [address] [place] [address] [id number] 04/06/2020 14:15:18 04/07/2020 09:52:46 Depressive disorder 52350384 F32.9 Family rosa nning surveillance 180655141 Z30.09 Acne 62996881 L70.9 Anemia 478938909 D64.9 Surveillan ce of intrauterine device contraception done 5169022218 11435 Z30.40 Vaginitis 79845439 N76.0 Exposure t o sexually transmissible disorder 891096751 Z20.2 [id number] [facility]PER[facility] [address] [place] [address] [id number] 0 07/02/2020 16:02:07 07/14/2020 13:44:13 Replacement of intrauterine contraceptive device 21860179 Z30.433 24yo F presents for IUD replacemen t. Aurora removed and Kyleena inserted without issue. Pt tolerated well. (See procedure note for more details.) Counseled pt on IUD and side effects. RTC in weeks for IUD check. [id number] KAILEY ROBLES (CNC MACHINE OPERATOR) [address] [place] [address] [id number] 0 08/21/2020 15:38:54 08/22/2020 09:26:57 Surveillance of intrauterine device contraception done 7075864388 92063 Z30.40 Kyleena placed 07/02/20. Pt reports spotting twice per day for the last 3 weeks. IUD strings seen on exam. Advised spotting is common for the 1-3 months after IUD insertion. RTC if bleeding worsens/pe rsists. [id number] JOHANNA MENCHACA CK, DO [facility] (CNC MACHINE OPERATOR) [address] [place] [address] 06/08/2021 15:49:53 06/10/2021 10:05:33 Postcoital bleeding 67173572 N93.0 2 episodes of painless vaginal bleeding associated with intercours e. Pelvic deferred by patient. Will assess IUD position on pelvic US as above. Given IUD in situ, possible bleeding represents menses. Plans for pelvic with persistenc e. Dysuria 81094169 R30.9 smells like popcorn x 3 weeks on and offdysuria x2 daysUA reassuring today Lower abdominal pain 545 24472 R10.30 -Patient reports intermitte nt bilateral RLQ and LLQ abdominal pain localized superior and medial to ASIS's.-Pa in occasional ly associated with deep penetratio n with intercours e. Patient concerned about ovarian pathology- Pelvic US to assess for gynecologi c etiologies . Given localizati on, MSK etiology possible. [id number] SURYA JAFFE MD [place] 14 IM 4 [facility] Dr [place] [address] [place] [phone] 1 06/04/2024 14:36:15 06/18/2024 09:48:25 Dysuria 03436565 R30.0 - painful urination for about a week, however negative dipstick and does not report back pain- differenti als include yeast/BV infection or STI/STD infxn Screening for malignant neoplasm of cervix 518680947 Z12.4 last pap smear in 2019, was WNLpap smear performed at this time, will follow up on results Abnormal u terine bleeding 2663266904 9100 N93.8 - pt complainin g of AUB for last 18 months- differenti al dx includes:* structural abnormalit ies such as polyp, adenomyoma , leiomyoma* malignancy , coagulopat hy however lower on my differenti al list at this point due to prior screenings and working done during recent * ovulation dysfunctio n less likely as pt does bleed every 28-32 days*iatro genic non-struct ural causes- will further investigat e with pelvic US as well as checking for any hormonal imbalances - follow up based on results Adult [facility] examination 209968938 Z00.00 - 28 yo F well appearing female- problem list and medication s reviewed- not UTD on pap smear, consented to having one done at this time- recommende d initiation of vitamins Inflammati on of cervix 30336714 N72 cervix noted to be inflamed and friable on examinatio n, unclear etiology at this timework up as mentioned above should provide further clarity Health Concerns Section Related Observation LastModified by Organization Detai ls LastModified Time None Recorded Concern Status LastModified by Organization Details LastModified Time None Recorded Advance Directives Directive N: Payers Encounter Date Sequence Insurance Name Policy Number Policy De Covered Member ID De Member ID Guarantor Name 04/06/2020 1 [facility] (MEDICAID HMO) [id number] Cee Aldridge [id number] Cee March 07/02/2020 1 [facility] (MEDICAID HM) [id number] Cee Aldridge [id number] Cee March 08/21/2020 1 [facility] (MEDICAID HMO) [id number] Cee Aldridge [id number] Cee March 06/08/2021 1 [facility] (MEDICAID HMO) [id number] Cee Aldridge [id number] Cee March 06/04/2024 1 [facility] Donal March [id number] Cee March Notes Date Note Type Note [...] children in near future. Jose C Caba [place], [place] - [facility] 04/06/2020 18:02:09 07/02/2020 text/html 24yo presenting for IUD replacement. Currently has Aurora IUD but would like to switch to 5 year Kyleena. She has no complaints with IUD. No concerns today. Denies abnormal discharge, pelvic pain, n/v, fevers. LMP 07/02. KAILEY ROBLES Attn: Accounting,[address] [facility], [place], [address], [facility] 07/09/2020 15:22:47 08/21/2020 text/html 24yo nulligravid a presenting for IUD check. She is currently using Kyleena, placed 07/02/20. LMP 07/02. She reports some spotting 2x/day for the last three weeks. Pt denies abdominal pain, fever, chills, discharge, or any other complaints at this time. KAILEY ROBLES Attn: Accounting,[address] [facility], [place], [address], [facility] 08/24/2020 17:47:09 06/08/2021 text/html Patient is a [...] x 2 days. No other complaints today Johanna Borjas null, [place] - [facility] 06/09/2021 09:23:44 06/04/2024 text/html 28yo F PMH of AD HD, depression & anxiety, IBS-C presents to clinic today to establish care ObGyn Ernie [id number] Pap: 2019 was WNL PHQ-9: 12 Medicationsas [...] frequency SURYA JAFFE MD Attn: Accounting,[address] [place], [address], [facility] - [facility] 06/05/2024 16:42:45 OBGyn Episode Ob Episode Information Episode Created Date Number of Fetuses Patient Bloodtype Patient rh Status Prepregnancy Weight lbs Domestic Partner Domestic Partner Phone Father Name [employer] Worker Status 06/04/20 24 1 CLOSED Fetus Data First Name Last Name Admitted to NICU Weight (g) Sex Living Outcome Pediatric Complications Fetus ID Race Codes Race Delivery Type F [id number] Vaginal Alec Calculation Initial Alec Date Initial Exam Date Initial Exam Provider Initial Ultrasound Date Last Menstrual Period Date Ultra Sound Weeks Gestation 0 Eighteen To Twenty Week Alec Update Ultra Sound Date Fundal Height At Umbil Quickening Date Ultra Sound Latest Weeks Gestation Final Alec Confirmed By Final Alec Confirmed Date Final Alec Date Ultra Sound Latest Days Gestation 0 [...]
--- OUTSIDE RECORDS SUMMARY | 2024-12-17 09:35 | XMS_ITS | Clinical Summary ---
Author Organization [facility] Address [address] [address] Phone Care Team Providers Care Terrazzo Worker Name Role Phone Bessy Alcaraz APRN, ARAM Unavailable [phone] Bessy Alcaraz APRN, CNP Primary Care Provid er Molly Costello APRN, EXPORT FREIGHT CLERK Unavailable Allergies Active Allergy Reactions Criticality Noted Date Comments Etonogestrel-Ethinyl Estradiol Swelling High 04/05 Latex Other (see Comments) High 04/05/2024 Medications buPROPion (Wellbutrin XL) 300 MG TABLET SR 24 HR XL tabletIndications: MDD (major depressive disorder), recurrent episode, moderate (HCC),Anxiety Take 1 Tablet by mouth every morning. 90 Tablet 1 5 Active Lisdexamfetamine Dimesylate 60 MG CapsuleIndications :Attention deficit hyperactivity disorder (ADHD), unspecified ADHD type Take 1 Capsule by mouth daily. 30 Capsule 5 Active Active Problems Problem Noted Date Diagnosed [...] 12/05/2024 2:45 PM CDT Outpatient Clinic Visit [facility] [address] [place] [address] Meryl Maurice LCSW Post traumatic stress disorder (PTSD) (Primary Dx); Grief reaction; ADHD (attention deficit hyperactivity disorder), combined type Discharge Disposition: Discharged to home or Selfcare 12/05/2024 Travel 11/18/2024 9:15 AM CDT Outpatient Clinic Visit [facility] [address] [place] [address] Meryl Maurice LCSW Grief reaction (Primary Dx); Post traumatic stress disorder (PTSD); ADHD (attention deficit hyperactivity disorder), combined type Discharge Disposition: Discharged to home or Selfcare 11/18/2024 Travel 11/17/2024 Travel 11/14/2024 8:00 AM CDT Office Visit [facility] [address] [place] [address] Bessy Alcaraz APRN, ARAM Attention deficit hyperactivity disorder (ADHD), unspecified ADHD type (Primary Dx); Anxiety; MDD (major depressive disorder), recurrent episode, moderate (HCC); Urinary urgency; Skin lesion Discharge Disposition: Discharged to home or Selfcare 11/14/2024 Travel 10/31/2024 8:30 AM CDT Outpatient Clinic Visit [facility] [address] [place] [address] Meryl Maurice LCSW Grief reaction (Primary Dx); ADHD (attention deficit hyperactivity disorder), combined type; Post traumatic stress disorder (PTSD) Discharge Disposition: Discharged to home or Selfcare 10/31/2024 Travel 10/03/2024 1:00 PM CDT Outpatient Clinic Visit [facility] [address] [place] [address] Meryl Maurice LCSW Grief reaction (Primary Dx); ADHD (attention deficit hyperactivity disorder), combined type; Post traumatic stress disorder (PTSD); Screening for posttraumatic stress disorder (PTSD) positive Discharge Disposition: Discharged to home or Selfcare 10/03/2024 Travel from Last 3 Months Immunizations Immunization Administration Dates Next Due Covid-19, Mrna, Lnp-s, Pf, 3 0 Mcg/0.3 Ml Dose (Fast Drinks) 12/26/2020,12/05/2020 DTP-Hib 06/24/1997,04/17/1997,02/11/1997 Hepatitis A, Pediatric, Unsp [...] alcohol) Rarely [facility] Utilities Answer Date Recorded In the past 12 months has th e [employer], gas, oil, or water [employer] threatened to shut off services in your home? No 06/03/2024 Social Connection and Isolation Panel [NHANES] A nswer Date Recorded In a typical week, how many times do you talk on the phone with family, friends, or neighbors? Patient declined 06/03/2024 How often do you get togethe r with friends or relatives? Patient declined 06/03/2024 How often do you attend amish or episcopal serv ices? Patient declined 06/03/2024 Do you belong to any clubs o r organizations such as amish groups, unions, fraternal or athletic groups, or [...] Recorded Total Score - Questions 1-9 15 09/21 [facility] - Occupational [...] place to sleep or slept in a fdc (including now)? No 11/27/2023 Housing Stability Vital Sign Answer Harley e Recorded In the last 12 months, was t here a time when you were not able to pay the mortgage or rent on time? No 06/03/2024 Number of Times Moved in the Last Year Not on fi le 06/03/2024 At any time in the past 12 m [facility], were you homeless or living in a fdc (including now)? No 06/03/2024 Education Answer Date [...] PM CDT Outpatient [facility] [address] [place] [address] Meryl Maurice, [address] [place] [address] Discharge Disposition: Discharged to home or Selfcare 03/13/2025 8:00 AM CDT [facility] [address] [place] [address] Bessy Alcaraz APRN, EXPORT FREIGHT CLERK [address] [address] Health Maintenance Due Date Last Done Comments [...] Health Improving( 2:54 PM CDT) Yes Agapito Cuenca LCSW Note: I want to cope better with grief and depression over mom and dad's and other issues Goal/Objective: Decrease grieving responses; coping with sorrow and low moods. Anticipated Time Frame for Goal Completion: 6 months Goal Reviewed with: patient Readiness to change: Ready to change Department associated with goal: [facility] Steps to [...] Improving( 2:54 PM CDT) Yes Meryl Maurice LCSW Note: Goal/Objective: Improve coping strategies for regulating mood and emotions. Anticipated Time Frame for Goal Completion: 6 months Goal Reviewed with: patient Readiness to change: Ready to change Department associated with goal: [facility] Steps to [...] CDT) hepatitis C antibody 0.09 <1 S/CO [facility] ARCH [id number] 03/29/2022 9:36 PM CDT [facility] Comment: Signal/Cutoff ratio < 0.79 is Nondetected Signal/Cutoff ratio 0.80-0.99 is Grayzone Signal/Cutoff ratio > 0.99 is Detected Supplemental assays are recommended if signal/cutoff ratio is >/=1.00. Signal/cutoff ratio result >/= 5.00 is 97% predictive of positivity for recombinant immunoblot assay (RIBA) and will be reported to the [place] Department of Public Health as required. Blood Venipuncture / Unknown 03/29/2022 1:42 PM CDT 03/29/2022 2:37 PM CDT us Bessy Alcaraz IN [employer]IGHT [employer]FUELING CRAFTSMAN, EXPORT FREIGHT CLERK CHEMISTRY ORDERABLES Final Result [facility] [address] [place] [address], [place] from Last 3 Months or Most Recently Relevant to Health Maintenance Insurance [facility] * Guarantor: [facility] Account Type Relation to Patient Date of Phone Billing Address Institutional Other [address] [place] [address] Care Teams Terrazzo Worker Relationship Specialty Start Date End Date Bessy Alcaraz APRN, ARAM [address] [address] PCP - General Advanced Practice Nurse 10/30/20 Bessy Alcaraz APRN, CNP [address] [address] Nurse Practitioner Advanced Practice Nurse 10/28/20 Molly Costello APRN, EXPORT FREIGHT CLERK [address] [place] [address] Nurse Practitioner Advanced Practice Nurse 10/05/23
[2024-12-17 10:58] LABS: Beta HCG Quantitative < 2.39 mIU/ML
== END 2024-12-17 09:33 | disposition home or self-care (01) ==
LOC: ANHLAB 09:33
PROVIDERS: PCP Nurse Practitioner; Visit Provider Obstetrics & Gynecology
DX: Z34.90 Encounter for supervision of normal pregnancy, unspecified, unspecified trimester (principal)
CPT/HCPCS: 36415; 84702

== ENCOUNTER 2025-01-11 07:50 | Outpatient (CLI) | payer OTHER, SELFPAY ==
[2025-01-11 09:12] LABS: Beta HCG Quantitative 44.41 mIU/ML
== END 2025-01-11 07:51 | disposition home or self-care (01) ==
LOC: ANHLAB 07:51
PROVIDERS: PCP Nurse Practitioner; Visit Provider Student in an Organized Health Care Education/Training Program
DX: N92.6 Irregular menstruation, unspecified (principal)
CPT/HCPCS: 36415; 84702

== ENCOUNTER 2025-01-18 07:47 | Outpatient (CLI) | payer OTHER, SELFPAY | END 2025-01-18 07:48 | disposition home or self-care (01) | LOC: ANHLAB 07:48 | PROVIDERS: PCP Nurse Practitioner; Visit Provider Student in an Organized Health Care Education/Training Program | DX: N94.89 Other specified conditions associated with female genital organs and menstrual cycle (principal) | CPT/HCPCS: 36415; 84702 ==

== ENCOUNTER 2025-01-24 09:53 | Emergency (ER) | payer OTHER, SELFPAY ==
[2025-01-24] VITALS (10 sets, daily range): BP systolic 133–148; BP diastolic 71–90; PULSE 69–124; RESP 16–18; TEMP 36.6; O2SAT 98–100
--- NOTE | ~2025-01-24 | US_ITS ---
EXAMINATION: US OB <=14 wk fetus w TV DATE: 01/24/2025 14:21 CDT INDICATION: Vaginal bleeding with a positive test COMPARISON: None TECHNIQUE: Real-time transabdominal obstetric ultrasound. FINDINGS: 4 para 1 Quantitative beta hCG measures 12,164. The uterus measures 4.5 x 5.9 x 7.6 cm. A gestational sac is identified within the uterus. A yolk sac is identified measuring 2.2 mm. Mean gestational sac diameter measures 8.7 mm, corresponding to an approximate gestational age of 5 w eeks and 5 days. No discrete implantation hemorrhage is appreciated. No pole is identified. cardiac activity is identified at a rate of bpm. The right ovary is unremarkable in echogenicity and size measuring 3.3 x 1.3 x 1.1 cm. The left ovary measures 3.9 x 1.9 x 2.0, and demonstrates a (likely) corpus luteal cyst. Trace free fluid lateral to the left ovary. Estimated date of delivery by ultrasound is 09/21/2025 IMPRESSION: Single intrauterine gestational sac with an approximate gestational age of 5 weeks and 5 days, with n o pole identified. Short-term follow-up is recommended. Reviewed, dictated and finalized at location A. IMPRESSION: Single intrauterine gestational sac with an approximate gestational age of 5 we eks and 5 days, with no pole identified. Short-term follow-up is recommended.
--- OUTSIDE RECORDS SUMMARY | 2025-01-24 09:55 | XMS_ITS | Clinical Summary ---
Author Organization [facility] Address [address] [address] Phone Care Team Providers Care Warehouse Associate Name Role Phone Bessy Alcaraz APRN, ARAM Unavailable [phone] Bessy Alcaraz APRN, CNP Primary Care Provid er Molly Costello APRN, PROCEDURE ANALYST Unavailable Allergies Active Allergy Reactions Criticality Noted [...] Encounters Date Type Department Care Team Description 01/01/2025 3:00 PM CDT Outpatient Clinic Visit [facility] [address] [place] [address] Meryl Maurice LCSW Post traumatic stress disorder (PTSD) (Primary Dx); Grief reaction; ADHD (attention deficit hyperactivity disorder), combined type Discharge Disposition: Discharged to home or Selfcare 01/01/2025 Travel 12/24/2024 MyChart RX Renewal [facility] [address] [place] [address] Bessy Alcaraz APRN, PROCEDURE ANALYST Medication Renewal Reviewed 12/05/2024 2:45 PM CDT Outpatient Clinic Visit [facility] 1 [place] [address] Meryl Maurice LCSW Post traumatic stress disorder (PTSD) (Primary Dx); Grief reaction; ADHD (attention deficit hyperactivity disorder), combined type Discharge Disposition: Discharged to home or Selfcare 12/05/2024 Travel 11/18/2024 9:15 AM CDT Outpatient Clinic Visit [facility] [address] [place] [address] Meryl Maurice LCSW Grief reaction (Primary Dx); Post traumatic stress disorder (PTSD); ADHD (attention deficit hyperactivity disorder), combined type Discharge Disposition: Discharged to home or Selfcare 11/18/2024 Travel 11/17/2024 Travel 11/14/2024 8:00 AM CDT Office Visit [facility] [address] [place] [address] Bessy Alcaraz APRN, ARAM Attention deficit hyperactivity disorder (ADHD), unspecified ADHD type (Primary Dx); Anxiety; MDD (major depressive disorder), recurrent episode, moderate (HCC); Urinary urgency; Skin lesion Discharge Disposition: Discharged to home or Selfcare 11/14/2024 Travel 10/31/2024 8:30 AM CDT Outpatient Clinic Visit [facility] [address] [place] [address] Meryl Maurice, PAYABLE MANAGER Grief reaction (Primary Dx); ADHD (attention deficit hyperactivity disorder), combined type; Post traumatic stress disorder (PTSD) Discharge Disposition: Discharged to home or Selfcare 10/31/2024 Travel from Last 3 Months Immunizations Immunization Administration Dates Next Due Covid-19, Mrna, Lnp-s, Pf, 3 0 Mcg/0.3 Ml Dose (Bridgestream) 12/26/2020,12/05/2020 DTP-Hib 06/24/1997,04/17/1997,02/11/1997 Hepatitis A, Pediatric, Unsp [...] = 0.6 oz pur e alcohol) Rarely [facility] Utilities Answer Date Recorded In the past 12 months has e electric, gas, oil, or water company threatened to shut off services in your home? No 06/03/2024 Social Connection and Isolation Panel Answer Date Recorded In a typical week, how many times do you talk on the phone with family, friends, or neighbors? Patient declined 06/03/2024 How often do you get togethe r with friends or relatives? Patient declined 06/03/2024 How often do you attend latter day or yazidism serv ices? Patient declined 06/03/2024 Do you belong to any clubs o r organizations such as latter day groups, unions, fraternal or athletic groups, or [...] Total Score - Questions 1-9 15 09/21 [facility] - Occupational [...] any time in the past 12 m [facility], were you homeless or living [...] Department Care Team (Latest Contact Info) Description 01/28/2025 4:45 PM CDT Outpatient [facility] [address] [place] [phone] Meryl Maurice, PAYABLE MANAGER [address] [place] [address] Discharge Disposition: Discharged to home or Selfcare 03/13/2025 8:00 AM CDT [facility] [address] [place] [address] Bessy Alcaraz APRN, PROCEDURE ANALYST [address] [phone] Health Maintenance Due Date Last Done Comments [...] Progress Patient-Stated? Author Behavioral Health Behavioral Health No change(01/01 3:49 PM CDT) Yes Agapito Cuenca, PAYABLE MANAGER Note: I want to cope better with grief and depression over mom and dad's and other issues Goal/Objective: Decrease grieving responses; coping with sorrow and low moods. Anticipated Time Frame for Goal Completion: 6 months Goal Reviewed with: patient Readiness to change: Ready to change Department associated with goal: [facility] Steps to achieve [...] my moods and emotions better. Behavioral Health No change(01/01 3:49 PM CDT) Yes Meryl Maurice LCSW Note: Goal/Objective: Improve coping strategies for regulating mood and emotions. Anticipated Time Frame for Goal Completion: 6 months Goal Reviewed with: patient Readiness to change: Ready to change Department associated with goal: [facility] Steps to achieve [...] Procedure Name Priority Date/Time Associated Diagnosis Comments UR TEST QUAL 12/17/2024 12:00 AM CDT HEPATITIS C ANTIBODY Routine 03/29/2022 1:42 PM CDT Exposure to blood or body fluid from Last 3 Months or Most Recently Relevant to Health Maintenance Results * UR TEST QUAL (12/17/2024 12:00 AM CDT) 12/17/2024 us Provider Scan URINE ORDERABLES Final Result SCAN * HEPATITIS C ANTIBODY (03/29/2022 1:42 PM CDT) hepatitis C antibody 0.09 <1 S/[facility] ARCH [id number] B 03/29/2022 9:36 PM CDT [facility] Comment: Signal/Cutoff ratio < 0.79 is Nondetected Signal/Cutoff ratio 0.80-0.99 is Grayzone Signal/Cutoff ratio > 0.99 is Detected Supplemental assays are recommended if signal/cutoff ratio is >/=1.00. Signal/cutoff ratio result >/= 5.00 is 97% predictive of positivity for recombinant immunoblot assay (RIBA) and will be reported to the [place] Department of Public Health as required. Blood Venipuncture / Unknown 03/29/2022 1:42 PM CDT 03/29/2022 2:37 PM CDT us Bessy Kieran EQUIPMENT PROCESSER STORAGE, PROCEDURE ANALYST CHEMISTRY ORDERABLES Final Result [facility] [address] [place] [address], [place] from Last 3 Months or Most Recently Relevant to Health Maintenance Insurance [facility] * Guarantor: [facility] Account Type Relation to Patient Date of Phone Billing Address Institutional [place] [address] Care Teams Warehouse Associate Relationship Specialty Start Date End Date Bessy Alcaraz APRN, ARAM [address] [phone] PCP - General Advanced Practice Nurse 10/30/20 Bessy Alcaraz APRN, ARAM [address] [address] Nurse Practitioner Advanced Practice Nurse 10/28/20 Molly Costello APRN, ARAM [address] [place] [address] Nurse Practitioner Advanced Practice Nurse 10/05/23
--- OUTSIDE RECORDS SUMMARY | 2025-01-24 09:55 | XMS_ITS | Clinical Summary ---
Author Organization [facility] Address [address] [facility] [address] Care Team Providers Care Fbi Field Agent Name Role Phone Bessy Alcaraz APRN-LANDSCAPE ARCHITECTURE PROFESSOR Primary Care Provide r Source Comments [facility],non-owned Affiliates and Associated Physician Practices is amultiple site organization consisting of ambulatory clinics and hospital sitesin [place], [place], [place] and [place]. This disclosure is being madepursuant to the Care Everywhere program and may not contain all information available regarding this patient. Last updated 18.[facility] Allergies No known active allergies Medications * Be aware that medications may not be up to date on this document. Alwaysverify current medications with the patient. No known medications Active Problems Problem Noted Date Diagnosed Date Temporomandibular joint (TMJ) pain 08/14/2020 Encounters Date Type Department Care Team Description 12/19/2024 Travel from Last 3 Months Immunizations Immunization Administration Dates Next Due INFLUENZA [...] on file Legal Sex Female 5:38 AM WOOD BOAT BUILDER SUPERVISOR Gender Identity Not on file Sexual Orientation Not on file Last Filed Vital Signs Vital Sign Reading Time Taken Comments Blood Pressure 127/78 08/14/2020 3:19 PM WOOD BOAT BUILDER SUPERVISOR Pulse 82 08/14/2020 3:19 PM WOOD BOAT BUILDER SUPERVISOR Temperature 37 C (98.6 F) 08/14/2020 3:19 PM WOOD BOAT BUILDER SUPERVISOR Respiratory Rate 16 08/14/2020 3:19 PM WOOD BOAT BUILDER SUPERVISOR Oxygen Saturation - - Inhaled Oxygen Concentration - - Weight 87.1 kg (192 lb) 08/14/2020 3:19 PM WOOD BOAT BUILDER SUPERVISOR Height 157.5 cm (5' 2) 08/14/2020 3:19 PM WOOD BOAT BUILDER SUPERVISOR Body Mass Index 35.12 08/14/2020 3:19 PM WOOD BOAT BUILDER SUPERVISOR Plan of Treatment Upcoming Encounters Date Type Department Care Team (Late st Contact Info) Description 03/13/2025 2:40 PM CDT Office Visit [facility] [address] [facility] [place] [address] Stephane Gupta MD [facility] DEPT OF DERMATOLOGY [address] [place] [phone] Health Maintenance Due Date Last Done Comments HIV SCREENING 12/12/2011 HEPATITIS C SCREENING 12/07/2014 DTAP/TDAP/TD VACCINES (1 - Tdap) 12/12/2015 HEPATITIS B VACCINE (1 of 3 - 19+ 3-dose series) 12/12/2015 PAP SMEAR 2017 COVID-19 VACCINE ( - 2023-2 5 season) 2024 DEPRESSION SCREENING [...] topic Insurance MEDICAID - OUT OF STATE [facility] * Guarantor: Cee Nevarez Account Type Relation to Patient Date of Phone Billing Address Personal/Family Spouse Care Teams Fbi Field Agent Relationship Specialty Start Date End Date Bessy Alcaraz APRN-ARAM [address] [address] PCP - General Nurse Practitioner 12/19/24
--- OUTSIDE RECORDS SUMMARY | 2025-01-24 09:55 | XMS_ITS | Encounter Summary ---
Author Organization [facility] Address [address] [place] [address] Phone Care Team Providers Care Banquet Coordinator Name Role Phone Bessy Alcaraz APRN, ARAM Unavailable + [phone] Besys Alcaraz APRN, ARAM Primary Care Provid er Molly Costello APRN, JUMPBASTING FACING BASTER Unavailable Encounter Details Date Type Department Care Team (Late st Contact Info) Description 11/12/2020 Telephone [facility] [address] [place] [address] Bessy Alcaraz APRN, JUMPBASTING FACING BASTER [address] [address] Social History Tobacco Use Types [...] 6week appointment Previous providers: Dr. Brad Chan [facility] in [place], [place] Cee Chavez (endo) [facility] in [place] (steam shovel operator) documented in this encounter Plan of Treatment Upcoming Encounters Date Type Department Care Team (Latest Contact Info) Description 01/28/2025 4:45 PM CDT Outpatient Clinic Visit [facility] 1 [place] [address] Meryl Maurice, CHEMISTS [address] [place] [address] Discharge Disposition: Discharged to home or Selfcare 03/13/2025 8:00 AM CDT Office Visit [facility] [address] [place] [address] Bessy Alcaraz APRN, JUMPBASTING FACING BASTER [address] [address] documented as of this encounter Visit Diagnoses Not on filedocumented in this encounter Additional Health Concerns Infection Onset Date Last Indicated Resolved Time COVID - 19 Confirmed 03/10/2022 03/10/2022 022 12:16 AM CDT C. difficile Rule-Out 10/05/2023 10/05/20232023 12:19 AM CDT Assessment Noted Time PHQ-9 Depression Total Score: 12 021 3:00 PM CDT documented as of this encounter Care Teams Banquet Coordinator Relationship Specialty Start Date End Date Bessy Alcaraz APRN, ARAM [address] [address] PCP - General Advanced Practice Nurse 10/30/20 Bessy Alcaraz APRN, ARAM [address] [address] Nurse Practitioner Advanced Practice Nurse 10/28/20 Molly Costello APRN, JUMPBASTING FACING BASTER [address] [place] [address] Nurse Practitioner Advanced Practice Nurse 10/05/23 documented as of this encounter
--- OUTSIDE RECORDS SUMMARY | 2025-01-24 09:55 | XMS_ITS | Clinical Summary ---
Author Organization [facility] selina [facility] Address [address] [place] [address] Care Team Providers Care Wholesale Diamond Broker Name Role Phone Brad Chan MD Primary Care Provider [phone] Allergies No known active allergies Medications escitalopram oxalate (LEXAPRO) 20 mg tablet every morning. 0 Active levonorgestreL (ROSEMARIE) 14 mcg/24 hrs (3 yrs) 13.5 mg IUD by Intrauterine route. Active Active Problems Problem Noted Date Diagnosed Date History of iron deficiency anemia 05/06/2020 Immunizations Immunization Administration Dates Next Due (ADACEL/BOOSTRIX)(10 YR UP) TDAP VACCINE, 0.5ML, IM 11/01/2022 (RECOMBIVAX HB/ENGERIX-B)(0- 19 YRS) HEPATITIS B VACCINE 5 MCG/0.5 ML OR 10 MCG/0.5 ML PED OR ADOL 3 DOSE (PF), IM 06/24/1997,02/11/1997,1996 (VARIVAX)(12 MOS UP)VARICELL A VIRUS VACCINE (PF) 0.5 ML, SUB CUT 11/03/2008 Family History Medical History Relation Name [...] 2017 HPV/Cotest (-) 2017 PAP SMEAR 2017 COVID-19 Vaccine (2023-2 5 season) 2024 12/26/2020, 12/05/2020 INFLUENZA VACCINE (#1) 2025 , 05/18/2022, 05/17/2019 DTAP/TDAP/TD VACCINES (5 - T d or Tdap) 11/01/2032 11/01/2022, 06/24/1997, 04/17/1997, Additional history exists HEPATITIS B VACCINES Completed 06/24/1997, 02/11/1997, 1996 HPV VACCINES Completed 07/04/2019, 08/0 11/2018, 09/21/2018, Additional history exists Insurance [place] [facility] [id number] Care Teams Wholesale Diamond Broker Relationship Specialty Start Date End Date Brad Chan MD [address] [place] [phone] PCP - General Emergency Medicine 04/10/20
--- OUTSIDE RECORDS SUMMARY | 2025-01-24 09:55 | XMS_ITS | Referral Summary ---
Author Organization [facility] Address [address] [place] [address] Care Team Providers Care Demurrage Agent Name Role Phone Bessy Alcaraz NP Primary Care Provider + Referring, Unknown MD Unavailable Unavailabl e Encounters Date Type Department Care Team Description 01/14/2025 Orders Only [facility] Maternal- Medicine [address] [place] [address] 7th Floor [address] [place] [address] Michelle Lara, ROSY Recurrent loss (Primary Dx); Encounter for preconception consultation 01/09/2025 8:35 AM CDT Lab [facility] 1 [place] [address] 01/06/2025 8:00 AM CDT Telemedicine [facility] Maternal- Medicine [facility] [address] [facility] [address] [place] [address] Fabian's thyroiditis (Primary Dx); Encounter for preconception consultation; Recurrent loss; Other specified attention deficit hyperactivity disorder (ADHD); Pre-eclampsia, antepartum 12/18/2024 Telephone [facility] Maternal- Medicine [address] [place] [address] 7th Floor [address] [place] [address] Roberta Mesa, FABRICATOR FOAM RUBBER PPC Appointment 12/05/2024 1:30 PM CDT Clinical Support [place] [facility] [address] [facility] [address] [place] [address] Missed period (Primary Dx); Encounter for anatomic [...] 1 capsule (25 mg total) by mouth principal examiner before breakfast 4 Active Active Problems Problem Noted Date Diagnosed Date 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 Suspected causes include cytogenetic abnormalities, antiphospholipid syndrome (APS), anatomic, infectious, hormonal, male factor, and autoimmune. Up to 50% of cases of RPL will not have a clearly defined etiology, however with unexplained RPL that the chance for a future successful can exceed 50%-60% depending on maternal age and parity. Recommendations prior to initial work-up with: karyotype of the patient and her partner antiphospholipd antibodies (lupus anticoagulant, anticardiolipin antibodies, and anti-b2 glycoprotein) sonohysterogram to evaluate for uterine anomalies TSH Prolactin Consider referral to reproductive endocrinology Fabian's thyroiditis 01/06/2025 Encounter for preconception consultation 025 Assessment & Plan (01/06/2025 7:47 AM CDT): Discussed general preconception counseling with the patient. We reviewed all chronic medical conditions (please see individual problems for specific counseling) as well as medications, indications for her medications as well as their safety profile in . We discussed the patient's family history and offered carrier screening. Assessed safey at home. We discussed the importance of vitamin and folic acid supplementation. We also discussed substance use and its impact on outcomes. We also discussed immunization status and discussed current recommendations for influenza and COVID vaccination in . Plan [] carrier screening [] vitamin/folic acid supplementation [] COVID vaccination Other specified attention de ficit hyperactivity disorder (ADHD) 01/06/2025 Assessment & Plan (01/06/2025 7:48 AM CDT): Attention-deficit/hyperactivity disorder is the most common neurodevelopmental disorder and persists into adulthood with a prevalence of ~3 % adult patients worldwide. There is limited data on the impact of ADHD and ADHD medication on outcomes, and it is difficult to separate the impact of medication exposure versus the disease process itself versus social/environmental factors. Overall, outcomes are excellent in patients with well-controlled ADHD. there are potential associations of maternal ADHD with NICU admission rates and small for gestational age infants. With regards to medications, Most ADHD medications rapidly cross the placental and blood-brain barrier, however, after the overall risk for adverse outcomes seem to be relatively low and there appears to be no association with congenital malformations or neurodevelopmental disorders including autism. appears to be safe and In dosages prescribed for medical indications, some evidence indicates that stimulants do not affect nursing infants adversely. Preeclampsia 01/06/2025 Assessment & Plan (01/06/2025 7:49 AM CDT): We reviewed the patient's history of hypertensive disorder of . We discussed that history of preeclampsia is a risk factor for development of preeclampsia in the current . The risk may be as high as 40% for patients with preeclampsia diagnosed at <28. There are no current tests to predict the development of preeclampsia in this . We recommend initiation of low-dose aspirin for prevention of preeclampsia. Recommendations prior to none Recommendations in Baseline CBC, CMP, UPC with initial OB labs Low dose aspirin daily starting at 12 weeks gestation until delivery Immunizations Immunization Administration Dates Next Due DTP [...] on file Legal Sex Female 10:43 AM DIRECTOR OF PSYCHIATRY Gender Identity Not on file Sexual Orientation Not on file Last Filed Vital Signs Vital Sign Reading Time Taken Comments Blood Pressure 118/72 06/01/2024 6:07 PM DIRECTOR OF PSYCHIATRY Pulse 65 06/01/2024 6:07 PM DIRECTOR OF PSYCHIATRY Temperature 36.8 C (98.2 F) 06/01/2024 6:07 PM DIRECTOR OF PSYCHIATRY Respiratory Rate 18 06/01/2024 6:07 PM DIRECTOR OF PSYCHIATRY Oxygen Saturation 98% 06/01/2024 6:07 PM DIRECTOR OF PSYCHIATRY Inhaled Oxygen Concentration - - Weight 82.6 kg (182 lb) 06/01/2024 6:07 PM DIRECTOR OF PSYCHIATRY Height 152.4 cm (5') 05/23/2024 6:52 PM CDT Body Mass Index 35.54 05/23/2024 6:52 PM CDT Plan of Treatment Not on file Procedures Procedure Name Priority Date/Time Associated Diagnosis Comments PROGESTERONE Routine 01/09/2025 8:58 AM CDT HCG, BLOOD, QUANTITATIVE Routine 01/09/2025 8:58 AM CDT POCT HCG, URINE Routine 12/05/2024 1:49 PM CDT Missed period from Last 3 Months Results * Progesterone (01/09/2025 8:58 AM CDT) Progesterone 11.40 ng/mL Comment: Interpretive Data Males: <0.15 ng/mL Females: Follicular <0.20 ng/mL Ovulation <4.1 ng/mL Luteal 4.1 - 14.5 ng/mL 1st Trimester 11.0 - 44.0 ng/mL 2nd Trimester 25.0 - 83.0 ng/mL 3rd Trimester 59.0 - 214.0 ng/mL Postmenopausal <0.13 ng/mL Current interpretive data was last revised 2021. Testing performed by: [facility], [address] [place] [address] Blood 01/09/2025 8:58 AM CDT 01/09/2025 12:21 PM CDT Sylvester Mcneal MD LAB BLOOD ORDERABLES Final Result Performing Organization Address City/[facility] Co de Phone Number BABAR DAMON (RUTH) [address] [facility] [place] [address] * (ABNORMAL) hCG, blood, quantitative (01/09/2025 8:58 AM CDT) Pathologist [facility] hCG, quant 15.0(H) 0.0 - 5.0 IUnits/L Comment: Interpretive Data Male: < 5 IU/L Non- premenopausal Female: <5 IU/L The Umer hCG Beta Quant assay procedure was used. Results from different manufacturers or methods may not be comparable. Serial testing should be performed using the same method. Interpretive Data was last revised on 2023 Blood 01/09/2025 8:58 AM CDT 01/09/2025 9:00 AM CDT Sylvester Mcneal MD LAB BLOOD ORDERABLES Edited Result - Final BABAR DAMON (CAROLYN) [address] [facility] [place] [address] * (ABNORMAL) POCT hCG, urine (12/05/2024 1:49 PM CDT) HCG, ur, POC Positive(A) Negative Lot Number [id number] QC Backgroud Clear Acceptable QC Control Line Acceptable Urine 12/05/2024 1:49 PM CDT Flaquita Jorge MD POINT OF CARE TEST ORDERABLES Final Result from Last 3 Months Insurance [facility] CHOICE PLUS [id number] [place] [address] CHOICE PLUS Care Teams Demurrage Agent Relationship Specialty Start Date End Date Bessy Alcaraz NP [address] [facility] [address] [address] PCP - General Nurse Practitioner 09/19/22 Referring, Unknown, 09/19/22
--- OUTSIDE RECORDS SUMMARY | 2025-01-24 09:55 | XMS_ITS | Data Portability ---
Author Organization [facility] Address [address] [place] [address] Care Team Providers Care Console Assembler Name Role Phone YEISON BENAVIDES Primary Care Provider Unavailabl e Assessment No assessment recorded. Plan of Treatment Reminders Order Date Submit Date Provider Last Modified By Organization Details Last Modified Time Details Appointments None recorded. Lab urinalysi s, dipstick 2023 024 In-Office Order, Internal Use Only DO Not Attach Compendium DO Not Attach Compendium, Do Not Delete/merge, [id number] 4 15:56:02 vaginal pathogens panel, SUNNY+probe , vaginal fluid 2023 024 YOLYN [facility], [address], [place], [address], 4 06:21:36 TSH, ultra-sen sitive, serum 2023 024 RENZO [facility], [address] [facility] [address], [place], [address], 4 06:23:36 prolactin , serum 2023 024 RENZO [facility], [address] [facility] [address], [place], [address], 4 06:23:37 unlisted lab - DHEA-S+17 -ohp+tesd /T 2023 024 RENZO [facility], [address], [place], [address], 4 06:23:35 cytology report, thin prep, smear or scraping, cervical or vaginal 2023 [facility], [address], [place], [address], 4 10:15:32 urinalysi s, dipstick 2020 021 [email or web address] ck1 In-Office Order, Internal Use Only DO Not Attach Compendium DO Not Attach Compendium, Do Not Delete/merge, [id number] 1 09:23:18 test, urine 2019 020 [email or web address] 1 In-Office Order, Internal Use Only DO Not Attach Compendium DO Not Attach Compendium, Do Not Delete/merge, [id number] 0 18:05:35 bacterial vaginosis panel, vaginal 2019 020 YOLYN [facility] (Centralized Electronic Ordering - All Locations), Patient Can Go To The Location Of Their Choice, [id number] 0 11:57:53 culture, vaginal/r ectal, streptoco ccus group B 2019 020 YOLYN [facility] (Centralized Electronic Ordering - All Locations), Patient Can Go To The Location Of Their Choice, [id number] 0 11:57:53 Referral None recorded. Procedures None recorded. Surgeries None recorded. Imaging US, pelvis, complete 2023 024 [facility], [address] [facility] , [place], [address], 4 02:58:35 US, pelvis, transabdo lindsey + transvagi nal [address] ([facility] Scheduling), [address] [place], [address], 1 14:35:07 Medication Orders multivita min tablet 2019 021 RENZO [facility] #25167, [address], [place], [place], [id number], 1 16:27:43 Calcium with Vitamin D 600 mg-10 mcg (400 unit) tablet 2019 021 [id number] [id number] [facility] #38856, [address], [place], [place], [id number], 1 09:37:29 Kyleena 17.5 mcg/24 hr (up to 5 years) 19.5 mg intrauter ine device 2019 020 [email or web address] [facility] #08188, [address], [place], [place], [id number], 4 14:57:34 RepHresh vaginal gel 2019 020 [facility] #57134, [address], [id number], 0 16:22:19 RepHresh Pro-B 2.5 billion cell capsule 2019 020 [facility] #65879, [address], [place], [place], [id number], 0 16:22:07 Ortho Tri-Cycle n (28) 0.18 mg(7)/0.2 15mg(7)/0 .25 mg(7)-0.0 35 mg tablet 2019 020 [facility] #73764, [address], [place], [place], [id number], 0 16:22:16 Kyleena 17.5 mcg/24 hr (up to 5 years) 19.5 mg intrauter ine device 2019 [email or web address] Not available 4 14:57:34 multivita min tablet 2019 [facility] #85261, [address], [place], [place], [id number], 1 16:27:40 Calcium with Vitamin D 600 mg-10 mcg (400 unit) tablet 2019 [facility] #26183, [address], [place], [place], [id number], 1 16:27:20 escitalop maria eugenia 20 mg tablet [facility], [address], [place], [place], [id number], 0 16:22:33 Patient TargetsNo targets recorded. Patient Instructions Encounter Date Encounter Id Patient Instructions Last Modified By Organization Details Last Modified Time 04/06/2020 [id number] anemia: care instructions joseerman Not available 04/06/2020 15:25:39 Discussed IUD removal and insertion in Aug 2020. [email or web address] Not available 04/06/2020 17:56:56 06/04/2024 [id number] painful urinatio n (dysuria): care instructions tran [...] DO Not Attach Compendium, Do Not Delete/merge, [id number] 07/02/2020 16:38:55 04/06/20 20 04/08/2020 bacte rial vagin osis panel , vagin al trich vag by SUNNY NEGATI VE negati ve Not Available [facility] ([facility]) [address] [place], [address], 04/09/2020 11:57:53 04/06/20 20 04/08/2020 bacte rial vagin osis panel , vagin al hsv 1 SUNNY NEGATI VE negati ve Not Available [facility] ([facility]) [address] [place], [address], 04/09/2020 11:57:53 04/06/2004/08/2020 bacte rial vagin osis panel , vagin al hsv 2 SUNNY NEGATI VE negati ve Not Available [facility] ([facility]) [address] [place], [address], 04/09/2020 11:57:53 04/06/2004/09/2020 bacte rial vagin osis panel , vagin al atopobium vaginae LOW - 0 score Not Available [facility] ([facility]) [address] [place], [address], 04/09/2020 11:57:53 04/06/2004/09/2020 bacte rial vagin osis panel , vagin al bvab 2 LOW - 0 score Not Available [facility] ([facility]) [address] [place], [address], 04/09/2020 11:57:53 04/06/2004/09/2020 bacte rial vagin osis [...] is not neces sujata. Not Available [facility] ([facility]) [address] [place], [address], 04/09/2020 11:57:53 04/06/2004/09/2020 bacte rial vagin osis panel , vagin al samira albicans, SUNNY NEGATI VE negati ve Not Available [facility] ([facility]) [address] [place], [address], 04/09/2020 11:57:53 04/06/2004/09/2020 bacte rial vagin osis panel , vagin al samira glabrata, SUNNY NEGATI VE negati ve Not Available [facility] ([facility]) [address] [place], [address], 04/09/2020 11:57:53 04/06/2004/09/2020 bacte rial vagin osis panel , vagin al chlamydia trachomatis, SUNNY NEGATI VE negati ve Not Available [facility] ([facility]) [address] [place], [address], 04/09/2020 11:57:53 04/06/2004/09/2020 bacte rial vagin osis panel , vagin al neisseria gonorrhoeae, SUNNY NEGATI VE negati ve Not Available [facility] ([facility]) [address] [place], [address], 04/09/2020 11:57:53 04/06/2004/08/2020 cultu re, vagin al/re [...] n is noted . Not Available [facility] ([facility]) [address] [facility], [place], [address], 04/09/2020 11:57:53 06/08/20 21 06/08/2021 urina lysis , dipst ick Leukocytes Trace Not Available In-Offi ce Order Internal Use Only DO Not Attach Compendium DO Not Attach Compendium, Do Not Delete/merge, [id number] 06/08/2021 16:32:46 06/08/20 21 06/08/2021 urina lysis , dipst ick Nitrite negati ve Not Available In-Office Order Internal Use Only DO Not Attach Compendium DO Not Attach Compendium, Do Not Delete/merge, [id number] 06/08/2021 16:32:46 06/08/20 21 06/08/2021 urina lysis , dipst ick Urobilinogen .2 Not Available In-Of fice Order Internal Use Only DO Not Attach Compendium DO Not Attach Compendium, Do Not Delete/merge, [id number] 06/08/2021 16:32:46 06/08/20 21 06/08/2021 urina lysis , dipst ick Protein Negati ve Not Available In-Office Order Internal Use Only DO Not Attach Compendium DO Not Attach Compendium, Do Not Delete/merge, [facility] 06/08/2021 16:32:46 06/08/20 21 06/08/2021 urina lysis , dipst ick pH 5.5 Not Available In-Office Order Internal Use Only DO Not Attach Compendium DO Not Attach Compendium, Do Not Delete/merge, [id number] 06/08/2021 16:32:46 06/08/20 21 06/08/2021 urina lysis , dipst ick Blood Negati ve Not Available In-Office Order Internal Use Only DO Not Attach Compendium DO Not Attach Compendium, Do Not Delete/merge, [facility] 06/08/2021 16:32:46 06/08/20 21 06/08/2021 urina lysis , dipst ick Specific [place] 1.030 Not Available In-Off ice Order Internal Use Only DO Not Attach Compendium DO Not Attach Compendium, Do Not Delete/merge, [id number] 06/08/2021 16:32:46 06/08/20 21 06/08/2021 urina lysis , dipst ick Ketone Negati ve Not Available In-Office Order Internal Use Only DO Not Attach Compendium DO Not Attach Compendium, Do Not Delete/merge, [id number] 06/08/2021 16:32:46 06/08/20 21 06/08/2021 urina lysis , dipst ick Bilirubin Negati ve Not Available In-Office Order Internal Use Only DO Not Attach Compendium DO Not Attach Compendium, Do Not Delete/merge, [id number] 06/08/2021 16:32:46 06/08/20 21 06/08/2021 urina lysis , dipst ick Glucose Negati ve Not Available In-Office Order Internal Use Only DO Not Attach Compendium DO Not Attach Compendium, Do Not Delete/merge, [id number] 06/08/2021 16:32:46 06/04/20 24 06/05/2024 NUSWA B VAGIN ITIS PLUS (VG+) atopobium vaginae LOW - 0 score Not Available [facility] ([facility]) [address] [facility], [place], [address], 06/06/2024 06:21:36 06/04/2006/05/2024 NUSWA B VAGIN ITIS PLUS (VG+) bvab 2 LOW - 0 score Not Available [facility] ([facility]) [address] [facility], [place], [address], 06/06/2024 06:21:36 06/04/20 24 06/05/2024 NUA B [...] prese nce of BV. Not Available [facility] ([facility]) [address] [facility], [place], [address], 06/06/2024 06:21:36 06/04/20 24 06/05/2024 NUSWA B VAGIN ITIS PLUS (VG+) samria albicans, SUNNY NEGATI VE negati ve Not Available [facility] ([facility]) [address] [facility], [place], [address], 06/06/2024 06:21:36 06/04/20 24 06/05/2024 NUSWA B VAGIN ITIS PLUS (VG+) samira glabrata, SUNNY NEGATI VE negati ve Not Available [facility] ([facility]) [address] [facility], [place], [address], 06/06/2024 06:21:36 06/04/20 24 06/06/2024 NUSWA B VAGIN ITIS PLUS (VG+) trich vag by SUNNY NEGATI VE negati ve Not Available [facility] ([facility]) [address] [facility], [place], [address], 06/06/2024 06:21:36 06/04/20 24 06/06/2024 NUSWA B VAGIN ITIS PLUS (VG+) chlamydia trachomatis, SUNNY NEGATI VE negati ve Not Available [facility] ([facility]) [address] [facility], [place], [address], 06/06/2024 06:21:36 06/04/20 24 06/06/2024 NUSWA B VAGIN ITIS PLUS (VG+) neisseria gonorrhoeae, SUNNY NEGATI VE negati ve Not Available [facility] ([facility]) [address] [facility], [place], [address], 06/06/2024 06:21:36 06/04/20 24 06/11/2024 IGP, RFX APTIM A HPV ASCU diagnosis: COMMEN T NEGAT GEOVANNA FOR INTRA EPITH ELIAL LESIO N OR NOAH BURT . Not Available [facility] ([facility]) [address] [facility], [place], [address], 06/11/2024 10:15:32 06/04/20 24 06/11/2024 IGP, RFX APTIM A HPV ASCU specimen adequacy: COMMEN T Satis facto ry for evalu ation . Endoc ervic al and/o r squam ous metap lasti c cells (endo cervi larissa compo nent) are prese nt. Not Available [facility] ([facility]) [address] [facility], [place], [address], 06/11/2024 10:15:32 06/04/20 24 06/11/2024 IGP, RFX APTIM A HPV ASCU clinician provided ICD10: SOLE Dorado Z12.4 R30.0 N93.8 Not Available [facility] ([facility]) [address] [facility], [place], [address], 06/11/2024 10:15:32 06/04/20 24 06/11/2024 IGP, RFX APTIM A HPV ASCU performed by: Keon Donaldson (ASCP ) Not Available [facility] ([facility]) [address] [place], [address], 06/11/2024 10:15:32 06/04/20 24 06/11/2024 IGP, RFX APTIM A HPV ASCU . . Not Available [facility] ([facility]) [address] [facility], [place], [address], 06/11/2024 10:15:32 06/04/20 24 06/11/2024 IGP, RFX [...] ts do occur . Not Available [facility] ([facility]) [address] [place], [address], 06/11/2024 10:15:32 06/04/20 24 06/11/2024 IGP, RFX APTIM A HPV ASCU test methodology: SOLE Dorado This liqui d based ThinP rep(R ) pap test was scree josef with the use of an image guide d systjoe m. Not Available [facility] ([facility]) [address] [place], [address], 06/11/2024 10:15:32 06/04/20 24 06/11/2024 IGP, RFX APTIM A HPV ASCU . COMMEN T The HPV DNA refle x crite day were not met with this speci men resul t there fore, no HPV testi ng was perfo rmed. Not Available [facility] ([facility]) [address] [facility], [place], [address], 06/11/2024 10:15:32 06/04/20 24 06/05/2024 DHEA- S+17- OHP+T ESD/T DHEA-sulfate 334.0 ug/dL 84.8-3 78.0 Not Available [facility] ([facility]) [address] [facility], [place], [address], 06/12/2024 06:23:35 06/04/20 24 06/05/2024 DHEA- S+17- OHP+T ESD/T testosterone 29 NG/dL 13-71 Not Available [facility] ([facility]) [address] [place], [address], 06/12/2024 06:23:35 06/04/20 24 06/09/2024 DHEA- S+17- OHP+T ESD/T free testosterone (direct) 1.5 pg/mL 0.0-4. 2 Not Available [facility] ([facility]) [address] [place], [address], 06/12/2024 06:23:35 06/04/20 24 06/12/2024 DHEA- S+17- OHP+T ESD/T 17-oh progesterone lcms 26 NG/dL Adult Femal e Folli cular 15 - 70 Lutea l 35 - 290 Not Available [facility] ([facility]) [address] [place], [address], 06/12/2024 06:23:35 06/04/20 24 06/05/2024 TSH RFX ON ABNOR MAL TO FREE T4 TSH 1.950 uIU/m L 0.450- 4.500 Not Available [facility] ([facility]) [address] [facility], [place], [address], 06/12/2024 06:23:36 06/04/20 24 06/05/2024 PROLA CTIN prolactin 10.8 NG/mL 4.8-33 .4 Not Available [facility] ([facility]) [address] [facility], [place], [address], 06/12/2024 06:23:37 06/04/20 24 06/04/2024 urina lysis , dipst ick Leukocytes Negati ve Not Available In-Office Order Internal Use Only DO Not Attach Compendium DO Not Attach Compendium, Do Not Delete/merge, [id number] 06/04/2024 15:28:27 06/04/2006/04/2024 urina lysis , dipst ick Nitrite negati [...] 06/04/2024 urina lysis , dipst ick Specific [place] 1.025 Not Available In-Off ice Order Internal [...] Delete/merge, 06/04/2024 15:28:27 07/06/20 24 07/01/2024 US, pelvi s, compl ete No observ ation record ed. [facility] (Radiology) [address] [place], [address], 07/09/2024 12:20:25 Result Notes None recorded. Problems Name Problem SNOMED Code Status Onset Date Resolution Date Notes Provider Name and Address Organization Details Recorded Time Acute urinary tract infection 576572454 Completed 201806/04/2024 Yeison Benavides MD Attn: Deborah lyon, [facility], [place], [address], [place] - [facility] 4 14:48:29 Bacterial vaginosis 045970631 Completed 201806/04/2024 Yeison Benavides MD Attn: Deborah lyon,[address] [place] [address], [place], [address], [place] [facility] 14:48:31 Acute cerviciti s 38710841 Completed 201806/04/2024 Yeison Benavides MD Attn: Deborah lyon,[address] [place] [address], [place], [address], [place] [facility] 4 14:48:26 Irritable bowel syndrome 52257699 Completed 201806/04/2024 Yeison Benavides MD Attn: Deborah lyon,[address] [place] [address], [place], [address], [place] [facility] 4 14:48:36 Depressiv e disorder 21257376 Active 2019 Yeison Benavides MD Attn: Deborah lyon,[address] [facility], [place], [address], [place] [facility] 4 14:48:41 Vaginitis 68963797 Completed 201906/04/2024 Yeison Benavides MD Attn: Deborah lyon,[address] [place] [address], [place], [address], [place] [facility] 4 14:48:46 Acne 68618085 Completed 201906/04/2024 Yeison Benavides MD Attn: Deborah lyon,[address] [place] [address], [place], [address], [place] [facility] 4 14:48:23 Past history of pre-eclam psia 456631895643 100 Active 2023 Yeison Benavides MD Attn: Deborah lyon,[address] [facility], [place], [address], [place] [facility] 4 15:50:51 Inflammat ion of cervix 10404009 Active 2023 Yeison Benavides MD Attn: Deborah lyon,[address] [facility], [place], [address], [place] [facility] 4 16:10:50 Dysuria 13797005 Active 2023 Yeison Benavides MD Attn: Deborah lyon,[address] [facility], [place], [address] [facility] 4 16:10:53 Abnormal uterine bleeding 507442355871 00 Active 2023 Yeison Benavides MD Attn: Deborah lyon,[address] [facility], [place], [address] [facility] 4 16:10:56 Adult health examinati on Active 2023 Yeison Benavides MD Attn: Deborah lyon,[address] [facility], [place], [address], [place] [facility] 4 16:10:58 Problem Notes None recorded. Procedures Surgical History Date Name Laterality Status Provider Name and Address Organization Details Recorded Time 07/02/20 20 IUD Replacement completed KAILEY ROBLES Attn: Accounting,[address] [place], [address], [place] [facility] 07/02/2020 16:36:44 02/23/20 19 Date of Last Pap Smear completed Megan Armendariz MA PA - [facility] 04/06/2020 14:39:16 09/19/19 18 IUD Insertion completed Jose C Caba PA - [facility] 09/19/2017 17:19:35 Tonsillectomy completed Tracy Townsend MA PA - [facility] 01/19/2016 15:07:30 Imaging Results None recorded. Procedure Notes None recorded. Medical Equipment None Reported. Allergies Allergen ID Allergen Name Allergen Category Reaction Reaction Severity Criticality Documentation Date Start Date Code Code System Note Provider Name and Address Organization Details Recorded Time 598219 NuvaRing medicatio n edema severe Not available 09/12/2017 06170 9 RxNorm Tracy DEO Town[place], [place] [facility] 8 15:27:10 360912 latex environme nt,medica tion other severe Not available 09/19/2017 96131 91 RxNorm pt state s react ion to latex condo ms, vagin al swell ing, cb-rm a Megan Armendariz [place] null, [place] [facility] 8 15:16:02 288636 Monistat Simple Therapy medicatio n swelling Not available Not available 06/04/2024 57199 72 RxNorm LORENA Haw[place] null, [place] - [...] Not Available Not Available No t Available June FE 08/12 (28) 1 mg-20 mcg (21)/75 [...] tablet twice a day by oral route. 06/08 completed Not [...] Updated DateTime 08/21/2020 152.4 cm 37.3 kg/m2 05359.29 g 114/88 mm[Hg] Lata Bennett MA [facility] 08/21/2020 16:13:19 Date Recorded Body mass index (BMI) Body weight Systolic And Diastolic Provider Name and Address Organization Details Last Updated DateTime 04/06/2020 35.7 kg/m2 85194.4 g 114/78 mm[Hg] Megan Armendariz MA [facility] 04/06/2020 14:55:46 Date Recorded Body height Provider Name an d Address Organization Details Last Updated DateTime 04/06/2020 152.4 cm Cee March MA [facility] 0 14:40:20 Date Recorded Body height Body mass index (BMI) Body weight Respiratory rate Body temperature Oxygen saturation Oxygen saturation in Arterial blood by Pulse oximetry Heart rate Systolic And Diastolic Provider Name and Address Organization Details Last Updated DateTime 4 152.4 cm 35.2 kg/m2 91967.1 3 g 18 /min 98.2 [degF] 98 % 98 % 106 /min 120/83 mm[Hg] LORENA Hawthorne [facility] 4 15:05:25 Date Recorded Body height Body mass index (BMI) Body weight Systolic And Diastolic Provider Name and Address Organization Details Last Updated DateTime 06/08/2021 152.4 cm 34.6 kg/m2 51636.28 g 110/66 mm[Hg] Lata Bennett MA [facility] 06/08/2021 16:34:20 Date Recorded Body height Body mass index (BMI) Body weight Systolic And Diastolic Provider Name and Address Organization Details Last Updated DateTime 07/02/2020 152.4 cm 36.9 kg/m2 47446.96 g 110/68 mm[Hg] Nakia DEO Chirinos [facility] 07/02/2020 16:21:17 Social History Question Answer Notes LastModified by Organizat ion Details LastModified Time Tobacco Smoking Status Never Smoker Tracy DEO Townsend null, [place] - [facility] 01/19/2016 15:07:31 Do You Have An Advance Directive? No Information n ot available 04/21/2016 Is Blood Transfusion Acceptable In An Emergency? Yes Information not available 04/21/2016 What Is Your Level Of Caffeine Consumption? Occasional Information not available 09/20/2018 How Much Tobacco Do You Chew? None [email or web address] Information not available 01/19/2016 In The 14 [...] Type Of Diet Are You Following? REGULAR [email or web address] Information n ot available 01/19/2016 Which Illicit Or Recreational Drugs Have You Used? Denies [email or web address] Information not available 01/19/2016 Education 12 [email or web address] Information no t available 01/19/2016 Live Alone Or With Others? With Others [email or web address] Information not available 01/19/2016 What Was The Date Of Your Most Recent Tobacco Screening? 06/04/2024 Information not available 06/04/2024 How Many Children Do You Have? 0 [email or web address] Information not available 01/19/2016 Performs Monthly Self-breast Exam? No Information no t available 04/21/2016 Do You Have Any Pets? Yes 1 Dog Information not available 06/08/2021 Do You Use Protection During Sex? No Information not available 04/21/2016 What Is Your Relationship Status? Single [email or web address] Information not available 01/19/2016 Do You Use Your Seat Belt Or Car Seat Routinely? Yes Information not available 06/08/2021 Seat Belts Used Routinely Yes [email or web address] Information not available 01/19/2016 Are You Sexually Active? Yes Information not available 04/21/2016 Do You Have Smoke And Carbon Monoxide Detectors In Your Home? Yes Information not available 06/08/2021 Are You Passively Exposed To Smoke? No Information no t available 06/08/2021 How Much Tobacco Do You Smoke? No [email or web address] Information not available 01/19/2016 General Stress Level High Information not available 09/20/2018 Do You Use Sunscreen Routinely? Yes Information not available 04/21/2016 Has Tobacco Cessation Counseling Been Provided? Yes Information not available 06/04/2024 On What Date Was Tobacco Cessation Counseling Provided? 06/04/2024 Information not available 06/04/2024 How Many Years Have You Smoked Tobacco? 0 [email or web address] Information not available 01/19/2016 Sex: Unknown Functional [...] 07/03/2019 What is your exercise level? Occasional [email or web address] Information not available 01/19/2016 Mental Status None recorded. Family History Relationship Description Onset Age of this Age Resolved Age Notes LastModified by Organization Details LastModified Time Mother Alcoholism [email or web address] Not availa ble 04/21/2016 16:09:19 Father Lilliana ahuja [email or web address] Not available 2015 16:09:19 Notes:06/04/24 Medical History Condition Response Coronary Artery Disease N Kidney Cyst N Blood Diseases N Hyperthyroidism N Blood Transfusion N MRSA N Blood disorders N Emphysema N Blood Clots N COPD N Depression Y Pneumonia N Premature N [...] Disorder N Colon Polyps N Heart Attack (NC) N Diabetes N Cardiomyopathy N Blood Transfusions [...] completed SURYA JAFFE MD Attn: Accounting,[address] [place], [address], [place] [facility] 06/04/2024 15:48:20 COVID-19, mRNA, LNP-S, PF, 30 mcg/0.3 mL dose 1 completed SURYA JAFFE MD Attn: Accounting,[address] [place], [address], [place] [facility] 06/04/2024 15:48:20 COVID-19, mRNA, LNP-S, PF, 30 mcg/0.3 mL dose 1 completed SURYA JAFFE MD Attn: Accounting,[address], [place], [place], [address] [place] [address], [place] [facility] 06/04/2024 15:48:20 COVID-19, mRNA, LNP-S, PF, 30 mcg/0.3 mL dose 1 completed SURYA JAFFE MD Attn: Accounting,[address], [place], [place], [address] [place] [address], [place] [facility] 06/04/2024 15:48:20 Tdap 3 completed SURYA JAFFE MD Attn: Accounting,[address], [place], [address] [place] [address], [place] [facility] 06/04/2024 15:48:20 varicella 9 completed SURYA JAFFE MD Attn: Accounting,[address], [place], [address] [place] [address], [place] [facility] 06/04/2024 15:48:20 OPV 7 completed SURYA JAFFE MD Attn: Accounting,[address], [place], [address] [place] [address], [place] [facility] 06/04/2024 15:48:20 OPV 7 completed SURYA JAFFE MD Attn: Accounting,[address], [place], [address] [place] [address], [place] [facility] 06/04/2024 15:48:20 DTP-Hib 7 completed SURYA JAFFE MD Attn: Accounting,[address], [place], [place], [address] [place] [address], [place] [facility] 06/04/2024 15:48:20 DTP-Hib 7 completed SURYA JAFFE MD Attn: Accounting,[address], [place], [address] [place] [address], [place] [facility] 06/04/2024 15:48:20 DTP-Hib 7 completed SURYA JAFFE MD Attn: Accounting,204 1 [address] [facility], [place], [address] [place] [address], [place] [facility] 06/04/2024 15:48:20 Hep B, adolescent or pediatric 7 completed SURYA JAFFE MD Attn: Accounting,[address], [place], [address] [place] [address], [place] [facility] 06/04/2024 15:48:20 Hep B, adolescent or pediatric 7 completed SURYA JAFFE MD Attn: Accounting,204 1 [facility], [place], [address] [place] [address], [place] [facility] 06/04/2024 15:48:20 Hep B, adolescent or pediatric 7 completed SURYA JAFFE MD Attn: Accounting,204 1 [facility], [place], [address] [place] [address], [place] [facility] 06/04/2024 15:48:20 Hep A, pediatric, unspecified formulation 9 completed SURYA JAFFE MD Attn: Accounting,204 1 [facility], [place], [address] [place] [address], [place] [facility] 06/04/2024 15:48:20 meningococcal C conjugate 9 completed SURYA JAFFE MD Attn: Accounting,204 1 [facility], [place], [address] [place] [address], [place] [facility] 06/04/2024 15:48:20 meningococcal MCV4P 5 completed SURYA JAFFE MD Attn: Accounting,204 1 [facility], [place], [address] [place] [address], [place] [facility] 06/04/2024 15:48:20 Influenza, split virus, quadrivalent, PF 2 completed SURYA JAFFE MD Attn: Accounting,204 1 [facility], [place], [address] [place] [address], [place] [facility] 06/04/2024 15:48:20 Influenza, split virus, quadrivalent, PF 3 completed SURYA JAFFE MD Attn: Accounting,204 1 [address] [facility], [place], [address], [facility] - [facility] 06/04/2024 15:48:20 HPV9 9 completed Not Available [facility] 08/10/2019 02:51:02 HPV9 9 completed Not Available [facility] 08/10/2019 02:46:06 HPV9 9 completed Not Available [facility] 08/10/2019 02:38:48 Past Encounters Encounter ID Performer Location Encounter Start Date Encounter Closed Date Diagnosis/Indication Diagnosis SNOMED-CT Code Diagnosis ICD10 Code Diagnosis Note [id number] Daren Holt MD [facility] (PROCESS DESIGN ENGINEER) [address] [place] [address] [id number] 01/15/2016 14:11:14 01/15/2016 15:40:30 Family planning education 812380804 Z30.02 [id number] Daren Holt MD [facility] (PROCESS DESIGN ENGINEER) [address] [place] [address] 30229-110 0 02/25/2016 11:12:21 02/29/2016 11:23:29 Family planning education 337210085 Z30.02 [id number] Daren Holt MD [facility] (PROCESS DESIGN ENGINEER) [address] [place] [address] [id number] 0 04/21/2016 14:49:52 04/27/2016 11:51:21 Initial prescription of oral contraception 015265415 Z30.473 [id number] MD Dudley Chandler (PROCESS DESIGN ENGINEER) [address] [place] [address] [id number] 09/12/2017 14:44:25 09/12/2017 16:01:18 Family planning surveillance 371832050 Z30.09 Vaginismus due to non-psychogenic cause 008107223 N94.2 Dyspareunia 62668497 N94 .10 [id number] MD Dudley Chandler (PROCESS DESIGN ENGINEER) [address] [place] [address] [id number] 0 09/19/2017 14:38:41 09/19/2017 16:10:43 Insertion of intrauterine contraceptive device 72532901 Z30.430 Family rosa nning surveillance 620476197 Z30.09 [id number] [facility] [address] [place] [address] [id number] 0 11/16/2017 14:39:05 11/16/2017 15:55:31 Surveillance of intrauterine device contraception done 9687565893 77416 Z30.40 Family rosa nning surveillance 391242996 Z30.09 Exposure t o sexually transmissible disorder 521406420 Z20.2 Bacterial vaginosis 4197 87953 N76.0 [id number] MD Dudley Chandler (PROCESS DESIGN ENGINEER) [address] [place] [address] [id number] 0 09/20/2018 11:47:15 09/20/2018 15:25:25 Family planning surveillance 548373013 Z30.09 Active or passive immunization 913214492 Z23 Surveillan ce of intrauterine device contraception done 3481714615 18561 Z30.40 Exposure t o sexually transmissible disorder 002328212 Z20.2 [id number] Jose C Caba MD [facility] (PROCESS DESIGN ENGINEER) [address] [place] [address] 74268-665 0 11/29/2018 09:45:15 11/30/2018 09:29:59 Acute urinary tract infection 206134037 N39.0 Family rosa nning surveillance 415480921 Z30.09 [id number] Jose C Caba MD [facility] (PROCESS DESIGN ENGINEER) [address] [place] [address] [id number] 0 02/21/2019 14:09:38 02/22/2019 13:03:00 Active or passive immunization 525531400 Z23 Family rosa nning surveillance 462709925 Z30.09 Gynecologi c examination 32515994 Z01.419 Z11.51 Surveillan ce of intrauterine device contraception done 2574127279 38229 Z30.40 Bacterial vaginosis 4197 54379 N76.0 Acute cervicitis 5823220 0 N72 Exposure t o sexually transmissible disorder 481332988 Z20.2 [id number] [facility] (PROCESS DESIGN ENGINEER) [address] [place] [address] [id number] 0 07/03/2019 14:43:04 07/03/2019 16:48:49 Family planning surveillance 289260120 Z30.09 Acute cervicitis 0693574 0 N72 Surveillan ce of intrauterine device contraception done 6395184516 85735 Z30.40 Urinary incontinence 165 766784 R32 Active or passive immunization 120343291 Z23 [id number] MD Dudley Chandler (PROCESS DESIGN ENGINEER) [address] [place] [address] [id number] 0 03/10/2020 10:25:52 03/11/2020 07:14:27 Family planning surveillance 817932597 Z30.09 Gynecologi c examination 51001248 Z01.419 Z11.51 Candidiasis of vagina 72 915194 B37.3 Vulvitis 24405779 N76.2 Depressive disorder 3548 9007 F32.9 [id number] MD Dudley Chandler (PROCESS DESIGN ENGINEER) [address] [place] [address] [id number] 0 04/06/2020 14:15:18 04/07/2020 09:52:46 Depressive disorder 67430124 F32.9 Family rosa nning surveillance 534657865 Z30.09 Acne 73432831 L70.9 Anemia 413473393 D64.9 Surveillan ce of intrauterine device contraception done 2374121294 67166 Z30.40 Vaginitis 10724671 N76.0 Exposure t o sexually transmissible disorder 693568591 Z20.2 [id number] KAILEY ROBLES (PROCESS DESIGN ENGINEER) [address] [place] [address] [id number] 0 07/02/2020 16:02:07 07/14/2020 13:44:13 Replacement of intrauterine contraceptive device 02960726 Z30.433 24yo F presents for IUD replacemen t. Aurora removed and Kyleena inserted without issue. Pt tolerated well. (See procedure note for more details.) Counseled pt on IUD and side effects. RTC in weeks for IUD check. [id number] KAILEY ROBLES (PROCESS DESIGN ENGINEER) [address] [place] [address] [id number] 0 08/21/2020 15:38:54 08/22/2020 09:26:57 Surveillance of intrauterine device contraception done 2836954612 63064 Z30.40 Kyleena placed 07/02/20. Pt reports spotting twice per day for the last 3 weeks. IUD strings seen on exam. Advised spotting is common for the 1-3 months after IUD insertion. RTC if bleeding worsens/pe rsists. [id number] JOHANNA MENCHACA CK, DO [facility] (PROCESS DESIGN ENGINEER) [address] [place] [address] [id number] 0 06/08/2021 15:49:53 06/10/2021 10:05:33 Postcoital bleeding 89231784 N93.0 2 episodes of painless vaginal bleeding associated with intercours e. Pelvic deferred by patient. Will assess IUD position on pelvic US as above. Given IUD in situ, possible bleeding represents menses. Plans for pelvic with persistenc e. Dysuria 00814523 R30.9 smells like popcorn x 3 weeks on and offdysuria x2 daysUA reassuring today Lower abdominal pain 545 21602 R10.30 -Patient reports intermitte nt bilateral RLQ and LLQ abdominal pain localized superior and medial to ASIS's.-Pa in occasional ly associated with deep penetratio n with intercours e. Patient concerned about ovarian pathology- Pelvic US to assess for gynecologi c etiologies . Given localizati on, MSK etiology possible. [id number] SURYA JAFFE MD [place] [address] IM [address] [facility] [address] [place] [address] 06/04/2024 14:36:15 06/18/2024 09:48:25 Dysuria 21736629 R30.0 - painful urination for about a week, however negative dipstick and does not report back pain- differenti als include yeast/BV infection or STI/STD infxn Screening for malignant neoplasm of cervix 352892871 Z12.4 last pap smear in 2019, was WNLpap smear performed at this time, will follow up on results Abnormal u terine bleeding 0678626010 9100 N93.8 - pt complainin g of [...] - follow up based on results Adult heal th examination 650484301 Z00.00 - 28 yo F well appearing female- problem list and medication s reviewed- not UTD on pap smear, consented to having one done at this time- recommende d initiation of vitamins Inflammati on of cervix 40494782 N72 cervix noted to be inflamed and friable on examinatio n, unclear etiology at this timework up as mentioned above should provide further clarity Health Concerns Section Related Observation LastModified by Organization Detai ls LastModified Time None Recorded Concern Status LastModified by Organization Details LastModified Time None Recorded Advance Directives Directive N: Payers Insurance Date Sequence Insurance Name Policy Number Policy De Covered Member ID De Member ID Guarantor Name 06/08/2021 1 [facility] - DOS PRIOR TO 2021 (MEDICAID REPLACEMENT - HMO) Cee Aldridge [id number] Cee March 06/08/2021 2 [place] [employer] Cee Aldridge [id number] Cee March 02/25/2016 1 [facility] (PPO) [id number] Steven Aldridge [id number] Cee March 06/08/2021 1 [facility] (MEDICAID HMO) [id number] Cee Aldridge [id number] Cee March 05/22/2024 1 [facility] (MEDICAID HMO) [id number] Cee Aldridge [id number] Cee March 07/11/2024 1 [facility] Donal March [id number] Cee March 06/08/2021 1 [facility] (MEDICAID HMO) Cee Aldridge [id number] Cee March Notes Date Note Type Note [...] in near future. Jose C Caba null, [place] - [place] 04/06/2020 18:02:09 07/02/2020 text/html 24yo presenting for IUD replacement. Currently has Aurora IUD but would like to switch to 5 year Kyleena. She has no complaints with IUD. No concerns today. Denies abnormal discharge, pelvic pain, n/v, fevers. LMP 12. KAILEY ROBLES Attn: Accounting,[address] [place], [address], [facility] - [facility] 07/09/2020 15:22:47 08/21/2020 text/html 24yo nulligravid a presenting for IUD check. She is currently using Kyleena, placed 07/02/20. LMP 07/02. She reports some spotting 2x/day for the last three weeks. Pt denies abdominal pain, fever, chills, discharge, or any other complaints at this time. KAILEY ROBLES Attn: Accounting,204 1 [facility], [place], [address], [facility] - [facility] 08/24/2020 17:47:09 06/08/2021 text/html [...] No other complaints today Johanna Borjas null, [place] - [facility] 06/09/2021 09:23:44 06/04/2024 text/html 28yo F PMH of AD HD, depression & anxiety, IBS-C presents to clinic today to establish care ObGyn Hx [id number] Pap: 2019 was WNL PHQ-9: 12 Medicationsas [...] frequency SURYA JAFFE MD Attn: Accounting,[address] [place], [address], [facility] - [facility] 06/05/2024 16:42:45 OBGyn Episode Ob Episode Information Episode Created Date Number of Fetuses Patient Bloodtype Patient rh Status Prepregnancy Weight lbs Domestic Partner Domestic Partner Phone Father Name Interactive Media Marketing Specialist Status 06/04/20 24 1 CLOSED Fetus Data First Name Last Name Admitted to NICU Weight (g) Sex Living Outcome Pediatric Complications Fetus ID Race Codes Race Delivery Type F [id number] Vaginal Alec Calculation Initial Alec Date Initial [...]
--- OUTSIDE RECORDS SUMMARY | 2025-01-24 09:55 | XMS_ITS | Encounter Summary ---
Author Organization [facility] Address [address] [place] [address] Phone Care Team Providers Care Color Maker Dyer Name Role Phone Bessy Alcaraz APRN, ARAM Unavailable + [phone] Bessy Alcaraz APRN, ARAM Primary Care Provid er Molly Costello APRN, MARKET PRESIDENT Unavailable Encounter Details Date Type Department Care Team (Late st Contact Info) Description 01/16/2024 Lab Requisition [facility] Laboratory Services [address] [place] [address] System, Referring Not In [place] Social History Tobacco Use Types Packs/Day Years Used Date Smoking Tobacco: Never Smokeless Tobacco: Never Alcohol Use Standard Drinks/Week Comments Yes 0 (1 standard drink = 0.6 oz pur e alcohol) Rarely [facility] Utilities Answer Date Recorded In the past 12 months has [place] [employer], gas, oil, or water [employer] threatened to shut off services in your home? No 11/27/2023 Social Connection and Isolation Panel Answer Date Recorded In a typical week, how many times do you talk on the phone with family, friends, or neighbors? Patient declined 11/27/2023 How often do you get togethe r with friends or relatives? Twice a week 11/27/2023 How often do you attend mormon or jew serv ices? Never 11/27/2023 Do you belong to any clubs o r organizations such as mormon groups, unions, fraternal or athletic groups, or [...] Total Score - Questions 1-9 2 11/2023 [facility] - Occupational Stress Questionnaire Answer Date Recorded [...] in a half-way (including now)? No 11/27/2023 Education Answer Date [...] 01/28/2025 4:45 PM CDT [facility] [address] [place] [address] Meryl Maurice, [employer] MECHANIC [address] [place] [address] Discharge Disposition: Discharged to home or Selfcare 03/13/2025 8:00 AM CDT Office Visit [facility] [address] [place] [address] Bessy Alcaraz APRN, MARKET PRESIDENT #[address] [address] documented as of this encounter Goals Goal Patient Goal Type Associated Problems Recent Progress Patient-Stated? Author Behavioral Health Behavioral Health No change(2024 3:49 PM CDT) Yes Agapito Cuenca, KASANDRA Note: I want to cope better with grief and depression over mom and dad's and other issues Goal/Objective: Decrease grieving responses; coping with sorrow and low moods. Anticipated Time Frame for Goal Completion: 6 months Goal Reviewed with: patient Readiness to change: Ready to change Department associated with goal: [facility] Steps [...] 3.0 >=1.1 AI 01/17/2024 10:25 AM CDT [facility] Blood No Phlebotomy Charged / Unknown 01/16/2024 1:55 PM CDT 01/16/2024 3:19 PM CDT Narrative [facility] - 01/17/2024 10:25 AM CDT <= 0.8 Negative. No detectable VZV IgG antibody. 0.9 - 1.0 Equivocal >=1.1 Positive Antibody testing was performed by multiplex flow immunoassay on the [employer]lex platform. us Referring Not In System IMMUNOLOGY ORDERABLES Fi nal Result Performing Organization Address City/[facility] Co de Phone Number [facility] [address] [place] [address], [place] * RUBEOLA (MEASLES) IGG (01/16/2024 1:55 PM CDT) MEASLES AB IGG 2.7 >=1.1 AI 01/17/2024 10:25 AM CDT [facility] Blood No Phlebotomy Charged / Unknown 01/16/2024 1:55 PM CDT 01/16/2024 3:19 PM CDT Narrative [facility] - 01/17/2024 10:25 AM CDT <= 0.8 Negative. No detectable Measles IgG antibody. 0.9 - 1.0 Equivocal >=1.1 Positive Antibody testing was performed by multiplex flow immunoassay on the BioPlex platform. us Referring Not In System IMMUNOLOGY ORDERABLES Fi nal Result Performing Organization Address [facility] Co de Phone Number [facility] [address] [place] [address], [place] * RUBELLA IMMUNITY IGG (01/16/2024 1:55 PM CDT) RUBELLA IMMUNITY Immune Immune, Invalid 01/17/2024 10:25 AM CDT [facility] Blood No Phlebotomy Charged / Unknown 01/16/2024 1:55 PM CDT 01/16/2024 3:19 PM CDT Narrative [facility] - 01/17/2024 10:25 AM CDT Antibody testing was performed by multiplex flow immunoassay on the [employer] platform. us Referring Not In System CHEMISTRY ORDERABLES Fin al Result Performing Organization Address City/[facility]/ZIP Co de Phone Number [facility] [address] [place] [address], [place] * MUMPS IGG (01/16/2024 1:55 PM CDT) Mumps Ab IgG 2.9 >=1.1 AI 01/17/2024 10:25 AM CDT [facility] Blood No Phlebotomy Charged / Unknown 01/16/2024 1:55 PM CDT 01/16/2024 3:19 PM CDT Narrative [facility] - 01/17/2024 10:25 AM CDT <= 0.8 Negative. No detectable Mumps IgG antibody. 0.9 - 1.0 Equivocal >=1.1 Positive Antibody testing was performed by multiplex flow immunoassay on the [employer] platform. us Referring Not In System IMMUNOLOGY ORDERABLES Fi nal Result [facility] [address] [place] [address], * QUANTIFERON-TB GOLD PLUS (01/16/2024 1:55 PM CDT) NIL CONTROL 0.00 <8.01 IU/mL 01/18/2024 9:51 AM CDT [facility] TB ANTIGEN 1 0.00 <0.35 IU/mL 01/18/2024 9:51 AM CDT [facility] TB ANTIGEN 2 0.01 <0.35 IU/mL 01/18/2024 9:51 AM CDT [facility] MITOGEN CONTROL 10.00 >0.49 IU/mL 01/18/20 9:51 AM CDT [facility] INTEPRETATION TB NEGATIVE NEGATIVE, NEGATIVE (TB antigen response less than 25% of internal negative control value) 01/18/2024 9:51 AM CDT [facility] Comment:No immune response t o Mycobacterium tuberculosis antigens was noted. M. tuberculosis infection unlikely. Blood No Phlebotomy Charged / Unknown 01/16/2024 1:55 PM CDT 01/16/2024 3:19 PM CDT Narrative [facility] - 01/18/2024 9:51 AM CDT A [...] In System IMMUNOLOGY ORDERABLES Fi nal Result [facility] [address] [place] [address], [place] * HEPATITIS B SURFACE ANTIBODY (HBSAB) (01/16/2024 1:55 PM CDT) HEPATITIS B SURFACE ANTIBODY <8.00 mIU/mL 01/16/2024 11:32 PM CDT [facility] Comment:Individual is consid ered not immune to HBV infection. 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
--- OUTSIDE RECORDS SUMMARY | 2025-01-24 09:55 | XMS_ITS | Clinical Summary ---
Author Organization [facility] Address [address] [place] [address] Care Team Providers Care Snaker Name Role Phone Bessy Alcaraz NP Primary [...] 1 capsule (25 mg total) by mouth coal bagger before breakfast 4 Active Active Problems Problem [...] starting at 12 weeks gestation until delivery Encounters Date Type Department Care Team Description 01/14/2025 Orders Only [facility] Maternal- Medicine [address] [place] [address] Outpatient Health 7th Floor [address] [place] [address] Michelle Lara RN Recurrent loss (Primary Dx); Encounter for preconception consultation 01/09/2025 8:35 AM CDT Lab [facility] [address] [place] [address] 01/06/2025 8:00 AM CDT Telemedicine [facility] Maternal- Medicine [facility] [address] [facility] [address] [place] [address] Fabian's thyroiditis (Primary Dx); Encounter for preconception consultation; Recurrent loss; Other specified attention deficit hyperactivity disorder (ADHD); Pre-eclampsia, antepartum 12/18/2024 Telephone [facility] Maternal- Medicine [address] [place] [address] 7th Floor [address] [place] [address] Roberta Mesa, [facility] Appointment 12/05/2024 1:30 PM CDT Clinical Support [facility] [address] [facility] [address] [place] [address] Missed period (Primary Dx); Encounter for anatomic [...] on file Legal Sex 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 Gender Identity Not on file Sexual Orientation Not on file Obstetrics History Para Term AB IAB SAB Ectopic Multiple Livin g Live Births 3 1 1 2 2 1 1 Date Outcome GA Total Labor Labor/2nd/3rd Weight Sex Type Anes PTL Chikis A1 A5 Name Clin 023 Term 37w 0d F Vagina l Livin g Complications:Pre eclampsia 024 SAB 4w0 d Bioche mical 025 SAB Bioche mical Last Filed Vital Signs Vital Sign Reading Time Taken Comments Blood Pressure 118/72 06/01/2024 6:07 PM TIGHTENING MACHINE OPERATOR Pulse 65 06/01/2024 6:07 PM TIGHTENING MACHINE OPERATOR Temperature 36.8 C (98.2 F) 06/01/2024 6:07 PM TIGHTENING MACHINE OPERATOR Respiratory Rate 18 06/01/2024 6:07 PM TIGHTENING MACHINE OPERATOR Oxygen Saturation 98% 06/01/2024 6:07 PM TIGHTENING MACHINE OPERATOR Inhaled Oxygen Concentration - - Weight 82.6 kg (182 lb) 06/01/2024 6:07 PM TIGHTENING MACHINE OPERATOR Height 152.4 cm (5') 05/23/2024 6:52 [...] 2024 07/20/2021, 12/26/2020, 12/05/2020 Influenza Vaccine (#1) 2025 , 05/22/2023, 05/18/2022, Additional history exists DTaP/Tdap/Td Vaccine (5 - Td or Tdap) 11/01/2032 11/01/2022, 06/24/1997, 04/17/1997, Additional history exists Hepatitis B Screening Completed 06/24/1997 , 02/11/1997, 1996 HPV Vaccines Completed 07/04/2019, 11/2018, 09/21/2018, Additional history exists Pneumococcal vaccine <65 [...] was last revised 2021. Testing performed by: [facility], [address] [facility], [place]., [address] Blood 01/09/2025 8:58 AM CDT 01/09/2025 12:21 PM CDT Sylvester Mcneal MD LAB BLOOD ORDERABLES Final Result [facility]) [address] [facility] [place] [address] * (ABNORMAL) hCG, blood, quantitative (01/09/2025 8:58 AM CDT) hCG, quant 15.0(H) 0.0 - 5.0 IUnits/L [...] ORDERABLES Edited Result - Final [facility] ([place]) [address] [facility] [place] [address] * (ABNORMAL) POCT hCG, urine (12/05/2024 1:49 PM CDT) HCG, ur, POC Positive(A) Negative Lot Number [id number] QC Backgroud Clear Acceptable QC Control Line Acceptable Urine 12/05/2024 1:49 PM CDT Flaquita Jorge MD POINT OF CARE TEST ORDERABLES Final Result from Last 3 Months Insurance [facility] HMO/PPO Address: [address] [place] [address] [facility] CHOICE PLUS [facility] HMO/PPO Address: [address] [place] [address] Care Teams Snaker Relationship Specialty Start Date End Date Bessy Alcaraz NP [address] [facility] [place] [address] PCP - General Nurse Practitioner 09/19/22 Referring, MD Haylie 09/19/22
--- OUTSIDE RECORDS SUMMARY | 2025-01-24 10:16 | XMS_ITS | Encounter Summary ---
Author Organization [facility] Address [address] [place] [address] Phone Care Team Providers Care Nurse School Name Role Phone Bessy Alcaraz APRN, ARAM Unavailable + [phone] Bessy Alcaraz APRN, ARAM Primary Care Provid er Molly Costello APRN, CAMPUS AMBASSADOR Unavailable Encounter Details Date Type Department Care Team (Late st Contact Info) Description 01/16/2024 Lab Requisition [facility] Laboratory Services [address] [place] [address] System, Referring Not In [place] Social History Tobacco Use Types Packs/Day Years Used Date Smoking Tobacco: Never Smokeless Tobacco: Never Alcohol Use Standard Drinks/Week Comments Yes 0 (1 standard drink = 0.6 oz pur e alcohol) Rarely [facility] Utilities Answer Date Recorded In the past 12 months has [employer], gas, oil, or water [employer] threatened to shut off services in your home? No 11/27/2023 Social Connection and Isolation Panel Answer Date Recorded In a typical week, how many times do you talk on the phone with family, friends, or neighbors? Patient declined 11/27/2023 How often do you get togethe r with friends or relatives? Twice a week 11/27/2023 How often do you attend anglican or hinduism serv ices? Never 11/27/2023 Do you belong [...] Total Score - Questions 1-9 2 11/2023 [facility] of Occupat ional [facility] - Occupational Stress Questionnaire Answer [...] 01/28/2025 4:45 PM CDT [facility] 1 [place] [address] Meryl Maurice, PLATING TANK OPERATOR [address] [place] [address] Discharge Disposition: Discharged to home or Selfcare 03/13/2025 8:00 AM CDT [facility] Visit [facility] [address] [place] [address] Bessy Alcaraz APRN, CAMPUS AMBASSADOR #[address] [address] documented as of this encounter Goals Goal [...] to change Department associated with goal: [facility] Steps to achieve goal: [...] 3.0 >=1.1 AI 01/17/2024 10:25 AM CDT [facility] Blood No Phlebotomy Charged / Unknown 01/16/2024 1:55 PM CDT 01/16/2024 3:19 PM CDT Narrative [facility] - 01/17/2024 10:25 AM CDT <= 0.8 Negative. No detectable VZV IgG antibody. 0.9 - 1.0 Equivocal >=1.1 Positive Antibody testing was performed by multiplex flow immunoassay on the BioPlex platform. us Referring Not In System IMMUNOLOGY ORDERABLES Fi nal Result Performing Organization Address City/[facility] Co de Phone Number [facility] [address] [place] [address], [place] * RUBEOLA (MEASLES) IGG (01/16/2024 1:55 PM CDT) MEASLES AB IGG 2.7 >=1.1 AI 01/17/2024 10:25 AM CDT [facility] Blood No Phlebotomy Charged / Unknown 01/16/2024 1:55 PM CDT 01/16/2024 3:19 PM CDT Narrative [facility] - 01/17/2024 10:25 AM CDT <= 0.8 Negative. No detectable Measles IgG antibody. 0.9 - 1.0 Equivocal >=1.1 Positive Antibody testing was performed by multiplex flow immunoassay on the BioPlex platform. us Referring Not In System IMMUNOLOGY ORDERABLES Fi nal Result Performing Organization Address [facility] Co de Phone Number [facility] [address] [place] [address], [place] * RUBELLA IMMUNITY IGG (01/16/2024 1:55 PM CDT) RUBELLA IMMUNITY Immune Immune, Invalid 01/17/2024 10:25 AM CDT [facility] Blood No Phlebotomy Charged / Unknown 01/16/2024 1:55 PM CDT 01/16/2024 3:19 PM CDT Narrative [facility] - 01/17/2024 10:25 AM CDT Antibody testing was performed by multiplex flow immunoassay on the BioPlex platform. us Referring Not In System CHEMISTRY ORDERABLES Fin al Result Performing Organization Address City/[facility]/ZIP Co de Phone Number [facility] [address] [place] [address], [place] * MUMPS IGG (01/16/2024 1:55 PM CDT) Mumps Ab IgG 2.9 >=1.1 AI 01/17/2024 10:25 AM CDT [facility] Blood No Phlebotomy Charged / Unknown 01/16/2024 1:55 PM CDT 01/16/2024 3:19 PM CDT Narrative [facility] - 01/17/2024 10:25 AM CDT <= 0.8 Negative. No detectable Mumps IgG antibody. 0.9 - 1.0 Equivocal >=1.1 Positive Antibody testing was performed by multiplex flow immunoassay on the XMS Penvision platform. us Referring Not In System IMMUNOLOGY ORDERABLES Fi nal Result [facility] [address] [place] [address], * QUANTIFERON-TB GOLD PLUS (01/16/2024 1:55 PM CDT) NIL CONTROL 0.00 <8.01 IU/mL 01/18/2024 9:51 AM CDT [facility] TB ANTIGEN 1 0.00 <0.35 IU/mL 01/18/2024 9:51 AM CDT [facility] TB ANTIGEN 2 0.01 <0.35 IU/mL 01/18/2024 9:51 AM CDT [facility] MITOGEN CONTROL 10.00 >0.49 IU/mL 01/18/20 9:51 AM CDT [facility] INTEPRETATION TB NEGATIVE NEGATIVE, NEGATIVE (TB antigen response less than 25% of internal negative control value) 01/18/2024 9:51 AM CDT [facility] Comment:No immune response t o Mycobacterium tuberculosis antigens was noted. M. tuberculosis infection unlikely. Blood No Phlebotomy Charged / Unknown 01/16/2024 1:55 PM CDT 01/16/2024 3:19 PM CDT Narrative [facility] - 01/18/2024 9:51 AM CDT A [...] System IMMUNOLOGY ORDERABLES Fi nal Result [facility] [address] [place] [address], [place] * HEPATITIS B SURFACE ANTIBODY (HBSAB) (01/16/2024 1:55 PM CDT) HEPATITIS B SURFACE ANTIBODY <8.00 mIU/mL 01/16/2024 11:32 PM CDT [facility] Comment:Individual is consid ered not immune to HBV infection. Blood No Phlebotomy Charged / Unknown 01/16/2024 1:55 PM CDT 01/16/2024 3:19 PM CDT us Referring Not In System CHEMISTRY ORDERABLES Fin al Result [facility] [address] [place] [address], [place] documented in this encounter Visit Diagnoses Not on filedocumented in this encounter Additional Health Concerns Assessment Noted Time PHQ-9 Depression Total Score: 2 09/26/19 1:32 PM HVAC SERVICES PROFESSIONAL documented as of this encounter Care Teams Nurse School Relationship Specialty Start Date End Date Bessy Alcaraz APRN, CAMPUS AMBASSADOR #[address] [address] PCP - General Advanced Practice Nurse 10/30/20 Bessy Alcaarz APRN, ARAM #[address] [address] Nurse Practitioner Advanced Practice Nurse 10/28/20 Molly Costello APRN, CAMPUS AMBASSADOR [address] [place] [address] Nurse Practitioner Advanced Practice Nurse 10/05/23 documented as of this encounter
--- OUTSIDE RECORDS SUMMARY | 2025-01-24 10:16 | XMS_ITS | Clinical Summary ---
Author Organization [facility] Address [address] [address] Phone Care Team Providers Care Tour Escort Name Role Phone Bessy Alcaraz APRN, ARAM Unavailable [phone] Bessy Alcaraz APRN, CNP Primary Care Provid er Molly Costello APRN, KITCHEN HELP HANDYMAN Unavailable Allergies Active Allergy Reactions Criticality Noted [...] 01/01/2025 3:00 PM CDT Outpatient Clinic Visit [facility] Behavioral Health Services [address] [place] [address] Meryl Maurice LCSW Post traumatic stress disorder (PTSD) (Primary Dx); Grief reaction; ADHD (attention deficit hyperactivity disorder), combined type Discharge Disposition: Discharged to home or Selfcare 01/01/2025 Travel 12/24/2024 MyChart RX Renewal [facility] [address] [place] [address] Bessy Alcaraz APRN, KITCHEN HELP HANDYMAN Medication Renewal Reviewed 12/05/2024 2:45 PM CDT Outpatient Clinic Visit [facility] Health Services [address] [place] [address] Meryl Maurice LCSW Post traumatic stress disorder (PTSD) (Primary Dx); Grief reaction; ADHD (attention deficit hyperactivity disorder), combined type Discharge Disposition: Discharged to home or Selfcare 12/05/2024 Travel 11/18/2024 9:15 AM CDT Outpatient Clinic Visit [facility] Behavioral Health Services [address] [place] [address] Meryl Maurice LCSW Grief reaction (Primary Dx); Post traumatic stress disorder (PTSD); ADHD (attention deficit hyperactivity disorder), combined type Discharge Disposition: Discharged to home or Selfcare 11/18/2024 Travel 11/17/2024 Travel 11/14/2024 8:00 AM CDT Office Visit [facility] [address] [place] [address] Bessy Alcaraz APRN, ARAM Attention deficit hyperactivity disorder (ADHD), unspecified ADHD type (Primary Dx); Anxiety; MDD (major depressive disorder), recurrent episode, moderate (HCC); Urinary urgency; Skin lesion Discharge Disposition: Discharged to home or Selfcare 11/14/2024 Travel 10/31/2024 8:30 AM CDT Outpatient [facility] Health Services [address] [place] [address] Meryl Maurice, ROTARY SLICING MACHINE OPERATOR Grief reaction (Primary Dx); ADHD (attention deficit hyperactivity disorder), combined type; Post traumatic stress disorder (PTSD) Discharge Disposition: Discharged to home or Selfcare 10/31/2024 Travel from Last 3 Months Immunizations Immunization Administration Dates Next Due Covid-19, Mrna, Lnp-s, Pf, 3 0 Mcg/0.3 Ml Dose ([employer]) 12/26/2020,12/05/2020 DTP-Hib 06/24/1997,04/17/1997,02/11/1997 Hepatitis A, Pediatric, Unsp [...] = 0.6 oz pur e alcohol) Rarely [facility] Utilities Answer Date Recorded In the past [...] How often do you attend muslim or tenriism serv ices? Patient declined 06/03/2024 Do you [...] Total Score - Questions 1-9 15 09/21 [facility] of Occupat ional Health - Occupational Stress [...] in a correction (including now)? No 11/27/2023 Housing Stability Vital Sign Answer Harley e Recorded In the last 12 months, was t here a time when you were not able to pay the mortgage or rent on time? No 06/03/2024 Number of Times Moved in the Last Year Not on fi le 06/03/2024 At any time in the past 12 m [place], were you homeless or living in a correction (including now)? No 06/03/2024 Education Answer Date [...] PM CDT Outpatient [facility] Health Services [address] [place] [address] Meryl Maurice, ROTARY SLICING MACHINE OPERATOR [address] [place] [address] Discharge Disposition: Discharged to home or Selfcare 03/13/2025 8:00 AM CDT [facility] Visit [facility] Medicine [facility] #[address] [place] [address] Bessy Alcaraz APRN, KITCHEN HELP HANDYMAN #[address] [phone] Health Maintenance Due Date Last Done Comments [...] change(01/01 3:49 PM CDT) Yes Agapito Cuenca, ROTARY SLICING MACHINE OPERATOR Note: I want to cope better with grief and depression over mom and dad's and other issues Goal/Objective: Decrease grieving responses; coping with sorrow and low moods. Anticipated Time Frame for Goal Completion: 6 months Goal Reviewed with: patient Readiness to change: Ready to change Department associated with goal: [facility] Steps to [...] Ready to change Department associated with goal: [facility] Steps to [...] C antibody 0.09 <1 S/CO [facility] ARCH [id number] B 03/29/2022 9:36 PM CDT [facility] Comment: Signal/Cutoff ratio < 0.79 is [...] 03/29/2022 2:37 PM CDT us Bessy Kieran SOLAR INSTALLATION HELPER, KITCHEN HELP HANDYMAN CHEMISTRY ORDERABLES Final Result [facility] [address] [place] [address], [place] from Last 3 Months or Most Recently Relevant to Health Maintenance Insurance [facility] * Guarantor: [facility] Account Type Relation to Patient Date of Phone Billing Address Institutional Other [place] [address] Care Teams Tour Escort Relationship Specialty Start Date End Date Bessy Alcaraz APRN, ARAM [address] [phone] PCP - General Advanced Practice Nurse 10/30/20 Bessy Alcaraz APRN, ARAM [address] [address] Nurse Practitioner Advanced Practice Nurse 10/28/20 Molly Costello APRN, ARAM [address] [place] [address] Nurse Practitioner Advanced Practice Nurse 10/05/23
--- OUTSIDE RECORDS SUMMARY | 2025-01-24 10:17 | XMS_ITS | Encounter Summary ---
Author Organization [facility] Address [address] [place] [address] Phone Care Team Providers Care Scraper Hand Name Role Phone Bessy Alcaraz APRN, ARAM Unavailable + [phone] Bessy Alcaraz APRN, ARAM Primary Care Provid er Molly Costello APRN, ASSEMBLER TESTER Unavailable Encounter Details Date Type Department Care Team (Late st Contact Info) Description 11/12/2020 Telephone [facility] [address] [place] [address] Bessy Alcaraz APRN, ASSEMBLER TESTER [address] [address] Social History Tobacco Use Types [...] 6week appointment Previous providers: Dr. Brad Chan [facility] in [place], [place] Cee Chavez (endo) [facility] in [place] (lawn sprinkler servicer) documented in this encounter Plan of Treatment Upcoming Encounters Date Type Department Care Team (Latest Contact Info) Description 01/28/2025 4:45 PM CDT Outpatient Clinic Visit [facility] Behavioral Health Services 1 [place] [address] Meryl Maurice, TYPE INSPECTOR [address] [place] [address] Discharge Disposition: Discharged to home or Selfcare 03/13/2025 8:00 AM CDT Office Visit [facility] - Family [facility] #2 [place] [address] Bessy Alcaraz APRN, ASSEMBLER TESTER #[address] [address] documented as of this encounter Visit Diagnoses Not on filedocumented in this encounter Additional Health Concerns Infection Onset Date Last Indicated Resolved Time COVID - 19 Confirmed 03/10/2022 03/10/2022 022 12:16 AM CDT C. difficile Rule-Out 10/05/2023 10/05/20232023 12:19 AM CDT Assessment Noted Time PHQ-9 Depression Total Score: 12 021 3:00 PM CDT documented as of this encounter Care Teams Scraper Hand Relationship Specialty Start Date End Date Bessy Alcaraz APRN, ARAM #[address] [address] PCP - General Advanced Practice Nurse 10/30/20 Bessy Alcaraz APRN, ARAM #[address] [address] Nurse Practitioner Advanced Practice Nurse 10/28/20 oMlly Costello APRN, ASSEMBLER TESTER [address] [place] [address] Nurse Practitioner Advanced Practice Nurse 10/05/23 documented as of this encounter
--- OUTSIDE RECORDS SUMMARY | 2025-01-24 10:17 | XMS_ITS | Clinical Summary ---
Author Organization [facility] Address [address] [place] [address] Care Team Providers Care Physician Support Coordinator Name Role Phone Brad Chan MD Primary Care Provider [phone] Allergies No known active allergies Medications escitalopram [...] Additional history exists Insurance [employer] [facility] [id number] Care Teams Physician Support Coordinator Relationship Specialty Start Date End Date Brad Chan MD [address] [place] [phone] PCP - General Emergency Medicine 04/10/20
--- OUTSIDE RECORDS SUMMARY | 2025-01-24 10:17 | XMS_ITS | Clinical Summary ---
Author Organization [facility] Address [address] [place] [address] Care Team Providers Care Appliance Fixer Name Role Phone Bessy Alcaraz NP Primary [...] 1 capsule (25 mg total) by mouth boom supervisor before breakfast 4 Active Active Problems Problem [...] Department Care Team Description 01/14/2025 Orders Only [facility] Maternal- Medicine [address] [place] [address] Outpatient Health 7th Floor [address] [place] [address] Michelle Lara RN Recurrent loss (Primary Dx); Encounter for preconception consultation 01/09/2025 8:35 AM CDT Lab [facility] [address] [place] [address] 01/06/2025 8:00 AM CDT Telemedicine [facility] Maternal- Medicine [facility] [address] [facility] [address] [facility] [address] [place] [address] Fabian's thyroiditis (Primary Dx); Encounter for preconception consultation; Recurrent loss; Other specified attention deficit hyperactivity disorder (ADHD); Pre-eclampsia, antepartum 12/18/2024 Telephone [facility] Maternal- Medicine [address] [place] [address] 7th Floor [address] [place] [address] Roberta Mesa, [facility] Appointment 12/05/2024 1:30 PM CDT Clinical Support [facility] [address] [place] [phone] Missed period (Primary Dx); Encounter for anatomic [...] on file Legal Sex Female 10:43 AM MECHATRONICS ENGINEER Gender Identity Not on file Sexual Orientation [...] Comments Blood Pressure 118/72 06/01/2024 6:07 PM MECHATRONICS ENGINEER Pulse 65 06/01/2024 6:07 PM MECHATRONICS ENGINEER Temperature 36.8 C (98.2 F) 06/01/2024 6:07 PM MECHATRONICS ENGINEER Respiratory Rate 18 06/01/2024 6:07 PM MECHATRONICS ENGINEER Oxygen Saturation 98% 06/01/2024 6:07 PM MECHATRONICS ENGINEER Inhaled Oxygen Concentration - - Weight 82.6 kg (182 lb) 06/01/2024 6:07 PM MECHATRONICS ENGINEER Height 152.4 cm (5') 05/23/2024 6:52 PM [...] was last revised 2021. Testing performed by: [facility], [address], [place]., [address] Blood 01/09/2025 8:58 AM CDT 01/09/2025 12:21 PM CDT Sylvester Mcneal MD LAB BLOOD ORDERABLES Final Result [facility] [address] [facility] [place] [address] * (ABNORMAL) hCG, blood, quantitative (01/09/2025 8:58 [...] ORDERABLES Edited Result - Final [facility] [address] [facility] [place] [address] * (ABNORMAL) POCT hCG, urine (12/05/2024 1:49 PM CDT) HCG, ur, POC Positive(A) Negative Lot Number [id number] QC Backgroud Clear Acceptable QC Control Line Acceptable Urine 12/05/2024 1:49 PM CDT Flaquita Joreg MD POINT OF CARE TEST ORDERABLES Final Result from Last 3 Months Insurance [facility] H[facility]/PPO Address: [address] [place] [address] [facility] HMO/PPO Address: [address] [place] [address] Care Teams Appliance Fixer Relationship Specialty Start Date End Date Bessy Alcaraz NP [address] [facility] [place] [address] PCP - General Nurse Practitioner 09/19/22 Referring, MD Haylie 09/19/22
--- OUTSIDE RECORDS SUMMARY | 2025-01-24 10:17 | XMS_ITS | Clinical Summary ---
Author Organization [facility] Address [address] [place] [address] Care Team Providers Care Chain Sales Representative Name Role Phone Bessy Alcaraz APRN-CLUTCH SPECIALIST Primary Care Provide r Source Comments [facility],non-owned Affiliates and Associated Physician Practices is amultiple site organization consisting of ambulatory clinics and hospital sitesin [place], [place], [place] and [place]. This disclosure is being madepursuant to the Care Everywhere program and may not contain all information available regarding this patient. Last updated 18.[facility] Allergies No known active allergies Medications * [...] on file Legal Sex Female 5:38 AM MACHINERY ENGINEER Gender Identity Not on file Sexual Orientation Not on file Last Filed Vital Signs Vital Sign Reading Time Taken Comments Blood Pressure 127/78 08/14/2020 3:19 PM MACHINERY ENGINEER Pulse 82 08/14/2020 3:19 PM MACHINERY ENGINEER Temperature 37 C (98.6 F) 08/14/2020 3:19 PM MACHINERY ENGINEER Respiratory Rate 16 08/14/2020 3:19 PM MACHINERY ENGINEER Oxygen Saturation - - Inhaled Oxygen Concentration - - Weight 87.1 kg (192 lb) 08/14/2020 3:19 PM MACHINERY ENGINEER Height 157.5 cm (5' 2) 08/14/2020 3:19 PM MACHINERY ENGINEER Body Mass Index 35.12 08/14/2020 3:19 PM MACHINERY ENGINEER Plan of Treatment Upcoming Encounters Date Type Department Care Team (Late st Contact Info) Description 03/13/2025 2:40 PM CDT Office Visit [facility] D[facility]ology [address] [facility], [place] [address] Stephane Gupta MD [facility] DEPT OF DERMATOLOGY [address] [place] [address] Health Maintenance Due Date Last Done [...] topic Insurance MEDICAID - OUT OF STATE [facility] * Guarantor: Cee Nevarez Account Type Relation to Patient Date of Phone Billing Address Personal/Family Spouse [address] [id number] [facility] * Guarantor: Cee Nevarez Account Type Relation to Patient Date of Phone Billing Address Personal/Family Spouse Care Teams Chain Sales Representative Relationship Specialty Start Date End Date Bessy Alcaraz APRN-ARAM [address] [address] PCP - General Nurse Practitioner 12/19/24
--- OUTSIDE RECORDS SUMMARY | 2025-01-24 10:17 | XMS_ITS | Referral Summary ---
Author Organization [facility] Address [address] [place] [address] Care Team Providers Care Grinder Machine Setter Name Role Phone Bessy Alcaraz NP Primary Care Provider + Referring, Unknown MD Unavailable Unavailabl e Encounters Date Type Department Care Team Description 01/14/2025 Orders Only [facility] Maternal- Medicine [address] [place] [address] 7th [address] [place] [address] Michelle Lara, ROSY Recurrent loss (Primary Dx); Encounter for preconception consultation 01/09/2025 8:35 AM CDT Lab [facility] [address] [place] [address] 01/06/2025 8:00 AM CDT Telemedicine [facility] Maternal- Medicine [facility] [address] [facility] Medical Office [address] [place] [address] Fabian's thyroiditis (Primary Dx); Encounter for preconception consultation; Recurrent loss; Other specified attention deficit hyperactivity disorder (ADHD); Pre-eclampsia, antepartum 12/18/2024 Telephone [facility] Maternal- Medicine [address] [place] [address] 7th [address] [place] [address] Roberta Mesa, PERSONAL TRAINER PPC Appointment 12/05/2024 1:30 PM CDT Clinical Support [facility] [address] [facility] [address] [place] [phone] Missed period (Primary Dx); Encounter for anatomic [...] 1 capsule (25 mg total) by mouth manager bank before breakfast 4 Active Active Problems Problem [...] on file Legal Sex Female 10:43 AM CHARTER BUS DRIVER Gender Identity Not on file Sexual Orientation Not on file Last Filed Vital Signs Vital Sign Reading Time Taken Comments Blood Pressure 118/72 06/01/2024 6:07 PM CHARTER BUS DRIVER Pulse 65 06/01/2024 6:07 PM CHARTER BUS DRIVER Temperature 36.8 C (98.2 F) 06/01/2024 6:07 PM CHARTER BUS DRIVER Respiratory Rate 18 06/01/2024 6:07 PM CHARTER BUS DRIVER Oxygen Saturation 98% 06/01/2024 6:07 PM CHARTER BUS DRIVER Inhaled Oxygen Concentration - - Weight 82.6 kg (182 lb) 06/01/2024 6:07 PM CHARTER BUS DRIVER Height 152.4 cm (5') 05/23/2024 6:52 PM [...] was last revised 2021. Testing performed by: [facility], [address] [place] [address] Blood 01/09/2025 8:58 AM CDT 01/09/2025 12:21 PM CDT Sylvester Mcneal MD LAB BLOOD ORDERABLES Final Result Performing Organization Address City/[facility] Co de Phone Number [facility]ABAR [facility]ON ([place]) [address] [facility] [place] [address] * (ABNORMAL) hCG, blood, quantitative (01/09/2025 8:58 AM CDT) Pathologist [facility] hCG, quant 15.0(H) 0.0 - 5.0 IUnits/L [...] Result - Final BABAR DAMON (CAROLYN) [address] [facility] [place] [address] * (ABNORMAL) POCT hCG, urine (12/05/2024 1:49 PM CDT) HCG, ur, POC Positive(A) Negative Lot Number [id number] QC Backgroud Clear Acceptable QC Control Line Acceptable Urine 12/05/2024 1:49 PM CDT Flaquita Jorge MD POINT OF CARE TEST ORDERABLES Final Result from Last 3 Months Insurance [facility] [employer] [facility] [facility] Address: [place] [address] [id number] [place] [address] CHOICE [employer] [facility]/[place]: [place] [address] Care Teams Grinder Machine Setter Relationship Specialty Start Date End Date Bessy Alcaraz NP [address] [facility] [address] [address] PCP - General Nurse Practitioner 09/19/22 Referring, Unknown, 09/19/22
[2025-01-24 10:55] LABS: Hematocrit 39.7 % (37.0-47.0); Hemoglobin 13.0 g/dL (12.0-15.0); Immature Granulocyte Percent A 0.4 % (0-0.5); Lymphocytes Absolute Auto 1.85 K/mm3 (0.9-3.2); Mean Corpuscular HGB Conc 32.7 g/dl (32-36); Mean Corpuscular Hemoglobin 30.5 pg (26-34); Mean Corpuscular Volume 93.2 fl (80-100); Nucleated Red Blood Cells Absolute Auto 0.000 K/mm3 (0.0-0.012); Nucleated Red Blood Cells Perc 0.0 % (0.0-0.2); Platelet Count Result 300 k/mm3 (150-375); Red Blood Count 4.26 M/mm3 (4.2-5.4); White Blood Count 7.5 K/mm3 (4.5-10.0)
[2025-01-24 11:01] LABS: Add Urine Microscopic? YES; Appearance Urine Clear (Clear); Glucose Urine UA Negative (Negative); Leukocyte Esterase Ur 1+ LEU/UL (Negative); Nitrate Urine Negative (Negative); Non Pathogenic Casts 0-2; Specific Grav Ur 1.037 (1.001-1.035)
[2025-01-24 11:03] LABS: Alanine Aminotransferase 17 U/L (6-35); Albumin Level 4.4 g/dL (3.5-5.1); Alkaline Phosphatase 67 U/L (38-126); Anion Gap 10 mmol/L (4-12); Aspartate Amino Transferase 19 U/L (14-36); Bilirubin,Total 0.2 mg/dL (0.2-1.3); Blood Urea Nitrogen 7 mg/dL (7-17); Calcium 9.2 mg/dL (8.4-10.2); Carbon Dioxide 20 mmol/L (22-30); Chloride 107 mmol/L (98-107); Estimated CRCL calculation 113 ml/min; Estimated Glomerular Filt Rate > 60; Glucose 95 mg/dL (65-110); Potassium 4.2 mmol/L (3.4-5.0); Sodium 137 mmol/L (137-145); Total Protein 7.5 g/dL (6.3-8.2)
[2025-01-24 11:17] LABS: INR 1.0; Prothrombin Time 12.9 Seconds (11.1-14.7)
[2025-01-24 11:18] LABS: Partial Thromboplastin Time 27.0 Seconds (22.3-36.8)
[2025-01-24 11:19] LABS: Beta HCG Quantitative 12164.00 mIU/ML
--- NOTE | 2025-01-24 11:25 | ED_ITS ---
HPI - General Chief complaint: Vaginal Bleeding Stated complaint: 6WK PREG VAG BLEEDING Time Seen by Provider: 01/24/25 09:56 Source: patient Mode of arrival: ambulatory Limitations: no limitations History of Present Illness HPI Narrative: Patient is a 29-year-old female who presents the ED with report vaginal bleeding. Patient is a and currently approximately 6 weeks gestation. She reports she had a miscarriage December 14, and did not have a normal cycle in between becoming again. Sees Dr. Glasgow. Reports she began having vaginal spotting last night into today, bright red and brown in color. Denies having bleeding. Denies significant pain. Denies nausea, vomiting, fevers. Related Data Home Medications ?Medication ?Instructions ?Recorded ?Confirmed ?Last Taken ?Type bupropion HCl 300 mg 24 hr tablet, 300 mg PO 08/23/24 01/21/25 Unknown History extended release lisdexamfetamine 30 mg capsule 30 mg PO DAILY 01/21/25 01/21/25 Unknown History Allergies Allergy/AdvReac Type Severity Reaction Status Date / Time No Known Allergies Allergy Verified 01/24/25 10:17 Review of Systems 2 Review of Systems: All systems reviewed & are unremarkable except as noted in HPI. All systems reviewed & are unremarkable except as noted in HPI and below PMFSH Past Medical History Medical History Abnormal glucose tolerance in Vaginal discharge Fabian's disease GERD (gastroesophageal reflux disease) ADHD Anxiety Depression IBS (irritable bowel syndrome) Surgical History Surgical History History of tonsillectomy Family History Family History Father Adenocarcinoma Heart attack High cholesterol Grandparent Cerebrovascular accident Sibling High cholesterol Social History Social History Smoking status: Never smoker Alcohol intake: never Substance use: never Substance use type: does not use Do You Feel Safe in your Home?: Yes Lack of Transportation: No Lack of Food: Never True Current Housing: Decline to Answer Concerned About Future Housing: Decline to Answer Difficulty Paying Gas/Electric Bills: Decline to Answer Difficulty Paying for Meds: Decline to Answer Currently Unemployed: Decline to Answer Education: Decline to Answer Difficulty w/ Childcare or Family Care: Decline to Answer Living arrangements: other Additional living arrangements comments: Occupation/Education: 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 HEAD: Normocephalic, atraumatic. RESPIRATORY: Airway patent, respirations nonlabored. Clear to auscultation bilaterally, no rales, rhonchi, wheezing. CARDIOVASCULAR: Regular rate and rhythm without murmurs, rubs, or gallops. ABDOMINAL: Soft, nontender, nondistended. Normoactive BS. PELVIC: Normal external genitalia. Uterus/cervix is tilted anteriorly. No active bleeding coming from cervix that I am able to appreciate. No pooling of fluid or signs of hemorrhage. Small amount of physiologic discharge. Most superficial portion of cervix does appear slightly inflamed and erythematous. No significant CMT. MUSCULOSKELETAL: Moves all extremities. No gross deformities. SKIN: Warm, dry, normal color. NEURO: A&O X3. Speech clear. PSYCHIATRIC: Appropriate mood and affect. Normal interaction. Course Vital Signs Vital signs: Vital Signs Temperature 98 F 01/24/25 09:59 Pulse Rate 124 H 01/24/25 09:59 Respiratory Rate 18 01/24/25 09:59 Blood Pressure 148/90 H 01/24/25 09:59 Pulse Oximetry 100 01/24/25 09:59 Oxygen Delivery Room Air 01/24/25 09:59 Temperature 98 F 01/24/25 09:59 Pulse Rate 124 H 01/24/25 09:59 Respiratory Rate 18 01/24/25 09:59 Blood Pressure 148/90 H 01/24/25 09:59 Pulse Oximetry 100 01/24/25 09:59 Oxygen Delivery Room Air 01/24/25 09:59 MDM - OB/Uterine Contractions MDM Narrative Medical decision making narrative: Patient presented to ED with vaginal bleeding, approximally 6 weeks gestation. History of previous miscarriages. . Patient tachycardic upon arrival, but very anxious appearing. Does not appear in any acute distress. Cbc without leukocytosis. H&H is stable. CMP unremarkable. UA with small amount of WBC and RBC. Sent for cx. Will treat given status. Beta hCG today is 12,164. This is increased from records on 01/18. Blood type is O negative. RhoGAM given. Pelvic exam without signs of hemorrhage, cervix appears mildly inflamed. Pelvic ultrasound obtained and showing gestational sac, no pole approximately 5 weeks 5 days. Discussed lab and imaging findings with patient. Discussed diagnosis of threatened miscarriage. Difficult to definitively diagnose miscarriage today. Advised she will need repeat hormone level drawn in 48 hours, likely Monday morning. Will need close follow-up with OBGYN for further evaluation repeat ultrasound testing. Advised to monitor bleeding. Given strict return precautions. She agrees with plan. Discharged in stable condition. Medical Records Attestation: I reviewed the patient's medical records. Lab Data Attestation: I reviewed the patient's lab results. 01/24/25 10:46 01/24/25 10:46 Labs: Lab Results 01/24/25 Range/Units 10:46 WBC 7.5 (4.5-10.0) K/mm3 RBC 4.26 (4.2-5.4) M/mm3 Hgb 13.0 D (12.0-15.0) g/dL Hct 39.7 (37.0-47.0) % MCV 93.2 (80-100) fl MCH 30.5 (26-34) pg MCHC 32.7 (32-36) g/dl RDW 13.6 (11.5-14.5) % Plt Count 300 (150-375) k/mm3 MPV 9.9 (7.4-10.4) fl Immature Gran % (Auto) 0.4 (0-0.5) % Neut % (Auto) 63.1 (45.5-73.1) % Lymph % (Auto) 24.8 (18.3-44.2) % Dyer % (Auto) 7.8 (2.6-8.5) % Eos % (Auto) 3.4 (0-4.4) % Baso % (Auto) 0.5 (0.2-1.2) % Lymph # (Auto) 1.85 (0.9-3.2) K/mm3 Dyer # (Auto) 0.6 (0.1-0.6) K/mm3 Eos # (Auto) 0.3 (0-0.3) K/mm3 Baso # (Auto) 0.0 (0.0-0.1) K/mm3 Abs Immat Gran (auto) 0.03 (0.00-0.031) K/mm3 Absolute Neuts (auto) 4.7 (1.3-6.7) K/mm3 Absolute Nucleated RBC 0.000 (0.0-0.012) K/mm3 Nucleated RBC % 0.0 (0.0-0.2) % PT 12.9 (11.1-14.7) Seconds INR 1.0 APTT 27.0 (22.3-36.8) Seconds Sodium 137 (137-145) mmol/L Potassium 4.2 (3.4-5.0) mmol/L Chloride 107 (98-107) mmol/L Carbon Dioxide 20 L (22-30) mmol/L Anion Gap 10 (4-12) mmol/L BUN 7 (7-17) mg/dL Creatinine 0.67 L (0.7-1.0) mg/dL Estim Creat Clear Calc 113 ml/min Estimated GFR > 60 (59 - ) Glucose 95 (65-110) mg/dL Calcium 9.2 (8.4-10.2) mg/dL Total Bilirubin 0.2 (0.2-1.3) mg/dL AST 19 (14-36) U/L ALT 17 (6-35) U/L Alkaline Phosphatase 67 (38-126) U/L Total Protein 7.5 (6.3-8.2) g/dL Albumin 4.4 (3.5-5.1) g/dL Beta HCG, Quant 73643.00 mIU/ML Urine Color Dark yellow (Yellow) Urine Appearance Clear (Clear) Urine pH 7.5 (5.0-9.0) Ur Specific [place] 1.037 H (1.001-1.035) Urine Protein Trace (Negative) mg/dL Urine Glucose (UA) Negative (Negative) mg/dL Urine Ketones Trace H (Negative) mg/dL Ur Blood (Man) Negative (Negative) Urine Nitrate Negative (Negative) Urine Bilirubin Negative (Negative) Urine Urobilinogen 1.0 (<2.0) mg/dL Leukocyte Esterase Rfl 1+ H (Negative) TED/UL Urine RBC 3-5 H (0-2) /hpf Urine WBC 11-20 H (0-3) /hpf Ur Squamous Epith Cells Occasional (Few) /hpf Urine Bacteria Rare /hpf Urine Casts 0-2 Blood Type O Negative Antibody Screen Negative Screen Not Reportable Baby's Blood Type Not Reportable Baby's MARK ANTHONY Not Reportable Doses of RhIg Required 1 Imaging Data Attestation: I personally reviewed and interpreted this imaging study as follows: Radiologist's impression: ITS Impressions Obstetrics Ultrasound 01/24/25 14:21 IMPRESSION: Single intrauterine gestational sac with an approximate gestational age of 5 weeks and 5 days, with no pole identified. Short-term follow-up is recommended. Discharge Plan Discharge Clinical Impression: Threatened miscarriage, 5 weeks gestation of , Asymptomatic bacteriuria during Patient Disposition: Home Condition: Stable Instructions: Antibiotic Form, Miscarriage (ED), Threatened Miscarriage (ED) Additional Instructions: You will need to have your hormone level repeated on Monday morning. Take lab order sheet with you to outpatient lab. Continue to monitor bleeding. Follow- up closely with your OBGYN for further evaluation. Contact office on Monday to make follow-up appointment. Return to the ED if you experience worsening or severe symptoms, severe bleeding, severe pain, unable to keep down food or drink, fevers, passing out, or any other symptoms of concern. Your urine showed signs of possible infection. Take antibiotics as prescribed. Patient Language: Montserratian Prescriptions: New nitrofurantoin monohyd/m-cryst 100 mg capsule 100 mg PO Q12H 5 Days Qty: 10 0RF Rx Instructions: must administer with a meal/food No Action bupropion HCl 300 mg tablet extended release 24 hr 300 mg PO lisdexamfetamine 30 mg capsule 30 mg PO DAILY progesterone micronized 200 mg capsule 200 mg vaginal QHS 60 Days Qty: 60 2RF Rx Instructions: Patient to insert 1 capsule vaginally nightly Other Ambulatory Orders: Beta HCG Quantitative (Routine) Timeframe: 20250127 Location: Determined by Patient Ordered By: Miesha Lincoln Follow-up/Referrals: Kieran,Bessy Jauregui APRN [Primary Care Provider] - Vladislav Glasgow MD [Physician] - (OBGYN) Time of Disposition: 14:56
[2025-01-24] MEDS: RHO(D) IMMUNE GLOBULIN 300 MCG/2 ML SYRINGE IM (13:25)
== END 2025-01-24 15:06 | disposition home or self-care (01) ==
PROVIDERS: Emergency Provider Physician Assistant; PCP Nurse Practitioner
DX: O20.0 Threatened abortion (principal); Z3A.01 Less than 8 weeks gestation of pregnancy
CPT/HCPCS: 36415; 76801; 76817; 80053; 81001; 84702; 85025; 85461; 85610; 85730; 86850; 86900; 86901; 87086; 90384; 96372; 99284; J2790

== ENCOUNTER 2025-02-10 14:21 | Outpatient (CLI) | payer OTHER, SELFPAY ==
--- OUTSIDE RECORDS SUMMARY | 2025-02-10 14:26 | XMS_ITS | Clinical Summary ---
Author Organization [facility] Address [address] [address] Phone Care Team Providers Care Can Striper Name Role Phone Bessy Alcaraz APRN, ARAM Unavailable [phone] Bessy Alcaraz APRN, CNP Primary Care Provid er Molly Costello APRN, EXHAUST TENDER Unavailable Allergies Active Allergy Reactions Criticality Noted [...] 01/01/2025 3:00 PM CDT Outpatient Clinic Visit [facility] [address] [place] [address] Meryl Maurice LCSW Post traumatic stress disorder (PTSD) (Primary Dx); Grief reaction; ADHD (attention deficit hyperactivity disorder), combined type Discharge Disposition: Discharged to home or Selfcare 01/01/2025 Travel 12/24/2024 MyChart RX Renewal [facility] [address] [place] [address] Bessy Alcaraz APRN, EXHAUST TENDER Medication Renewal Reviewed 12/05/2024 2:45 PM CDT Outpatient Clinic Visit [facility] [address] [place] [address] Meryl Maurice LCSW Post traumatic stress disorder (PTSD) (Primary Dx); Grief reaction; ADHD (attention deficit hyperactivity disorder), combined type Discharge Disposition: Discharged to home or Selfcare 12/05/2024 Travel 11/18/2024 9:15 AM CDT Outpatient Clinic Visit [facility] [address] [place] [address] Meryl Maurice LCSW Grief reaction (Primary Dx); Post traumatic stress disorder (PTSD); ADHD (attention deficit hyperactivity disorder), combined type Discharge Disposition: Discharged to home or Selfcare 11/18/2024 Travel 11/17/2024 Travel 11/14/2024 8:00 AM CDT Office Visit [facility] [address] [place] [phone] Bessy Alcaraz APRN, EXHAUST TENDER Attention deficit hyperactivity disorder (ADHD), unspecified ADHD type (Primary Dx); Anxiety; MDD (major depressive disorder), recurrent episode, moderate (HCC); Urinary urgency; Skin lesion Discharge Disposition: Discharged to home or Selfcare 11/14/2024 Travel from Last 3 Months Immunizations Immunization Administration Dates Next Due Covid-19, Mrna, Lnp-s, Pf, 3 0 Mcg/0.3 Ml Dose ([employer]) 12/26/2020,12/05/2020 DTP-Hib 06/24/1997,04/17/1997,02/11/1997 Hepatitis A, Pediatric, Unsp [...] declined 06/03/2024 How often do you attend gnosticism or sabianist serv ices? Patient declined 06/03/2024 Do you belong to any clubs o r organizations such as gnosticism groups, unions, fraternal or athletic groups, or [...] Total Score - Questions 1-9 15 09/21 [facility] Maybe[facility] of Occupat ional Health - Occupational Stress [...] place to sleep or slept in a chcf (including now)? No 11/27/2023 Housing Stability Vital Sign Answer Harley e Recorded In the last 12 months, was t here a time when you were not able to pay the mortgage or rent on time? No 06/03/2024 Number of Times Moved in the Last Year Not on fi le 06/03/2024 At any time in the past 12 m [facility] [place], were you homeless or living in a chcf (including now)? No 06/03/2024 Education Answer Date [...] Team (Late st Contact Info) Description 03/13/2025 8:00 AM CDT Office Visit [facility] [address] [place] [address] Bessy Alcaraz APRN, EXHAUST TENDER [address] [address] Health Maintenance Due Date Last Done Comments Pap Smear 2017 SARS-COV-2 Immunization ( season) 2024 07/20/2021, 12/26/2020, 12/05/2020 Influenza Immunization (#1) 03/24/202504/23, 05/22/2023, 05/18/2022, Additional history exists DTaP/Tdap/Td Immunization (5 - Td or Tdap) 11/01/2032 11/01/2022, 06/24/1997, 04/17/1997, Additional history exists Respiratory Syncytial Virus (RSV) Immunization (Adult) (1 - 1-dose 75+ series) 12/12/2071 Hepatitis B Immunization Completed 997, 02/11/1997, 1996 Meningococcal Immunization (ACWY) Completed 04/22/2015 Human Papillomavirus (HPV) Immunization Completed 07/04/2019, 02/25/2019, 09/21/2018, Additional history exists Hepatitis C Virus (HCV) Screening Completed 03/29/2022 Pneumococcal Immunization Combined Aged Out No longer eligible based on patient's age to complete this topic Rotavirus Immunization Aged Out No lo nger eligible based on patient's age to complete this topic Goals Goal Patient Goal Type Associated Problems Recent Progress Patient-Stated? Author Behavioral Health Behavioral Health No change(01/01 3:49 PM CDT) Yes Agapito Cuenca LCSW Note: [...] us Provider Scan URINE ORDERABLES Final Result Performing Organization Address City/[facility]/ZIP Co de Phone Number SCAN * HEPATITIS C ANTIBODY (03/29/2022 1:42 PM CDT) hepatitis C antibody 0.09 <1 S/CO [facility] ARCH [id number] B 03/29/2022 9:36 PM CDT [facility] Comment: Signal/Cutoff ratio < 0.79 is Nondetected Signal/Cutoff ratio 0.80-0.99 is Grayzone Signal/Cutoff ratio > 0.99 is Detected Supplemental assays are recommended if signal/cutoff ratio is >/=1.00. Signal/cutoff ratio result >/= 5.00 is 97% predictive of positivity for recombinant immunoblot assay (RIBA) and will be reported to the [place] Department of Public Health as required. Blood Venipuncture / Unknown 03/29/2022 1:42 PM CDT 03/29/2022 2:37 PM CDT us Bessy Alcaraz MAILING SECTION CLERK, EXHAUST TENDER CHEMISTRY ORDERABLES Final Result Performing Organization Address City/[facility]/[place] Co de Phone Number [facility] [address] [place] [address], [place] from Last 3 Months or Most Recently Relevant to Health Maintenance Insurance [facility] * Guarantor: [facility] Account Type Relation to Patient Date of Phone Billing Address Institutional Other [address] [place] [address] Care Teams Can Striper Relationship Specialty Start Date End Date Bessy Alcaraz APRN, ARAM [address] [phone] PCP - General Advanced Practice Nurse 10/30/20 Bessy Alcaraz APRN, CNP [address] [phone] Nurse Practitioner Advanced Practice Nurse 10/28/20 Molly Costello APRN, ARAM [address] [place] [address] Nurse Practitioner Advanced Practice Nurse 10/05/23
--- OUTSIDE RECORDS SUMMARY | 2025-02-10 14:26 | XMS_ITS | Encounter Summary ---
Author Organization [facility] Address [address] [place] [address] Phone Care Team Providers Care Restaurant Assistant Name Role Phone Bessy Alcaraz APRN, ARAM Unavailable + [phone] Bessy Alcaraz APRN, ARAM Primary Care Provid er Molly Costello APRN, EQUIPMENT SERVICE TECHNICIAN Unavailable Encounter Details Date Type Department Care Team (Late st Contact Info) Description 01/16/2024 Lab Requisition [facility] Laboratory Services [address] [place] [address] System, Referring Not In [place] Social History Tobacco Use Types Packs/Day Years Used Date Smoking Tobacco: Never Smokeless Tobacco: Never Alcohol Use Standard Drinks/Week Comments Yes 0 (1 standard drink = 0.6 oz pur e alcohol) Rarely [facility] Utilities Answer Date Recorded In the past 12 months has [employer], gas, oil, or water [employer] threatened to shut off services in your home? No 11/27/2023 Social Connection and Isolation Panel Answer Date Recorded In a typical week, how many times do you talk on the phone with family, friends, or neighbors? Patient declined 11/27/2023 How often do you get togethe r with friends or relatives? Twice a week 11/27/2023 How often do you attend judaism or caodaism serv ices? Never 11/27/2023 Do you belong to any clubs o r organizations such as judaism groups, unions, fraternal or athletic groups, or [...] Total Score - Questions 1-9 2 11/2023 [facility] [...] in a snf (including now)? No 11/27/2023 Education Answer Date [...] Description 03/13/2025 8:00 AM CDT Office Visit [facility] [place] [address] Bessy Alcaraz APRN, EQUIPMENT SERVICE TECHNICIAN #[address] [address] documented as of this encounter Goals Goal Patient Goal Type Associated Problems Recent Progress Patient-Stated? Author Behavioral Health Behavioral Health No change(2024 3:49 PM CDT) Yes Agapito Cuenca, PROFESSIONAL ORGANIZER Note: I want to cope better with grief and depression over mom and dad's and other issues Goal/Objective: Decrease grieving responses; coping with sorrow and low moods. Anticipated Time Frame for Goal Completion: 6 months Goal Reviewed with: patient Readiness to change: Ready to change Department associated with goal: [facility] Steps to [...] 3.0 >=1.1 AI 01/17/2024 10:25 AM CDT [facility] Blood No Phlebotomy Charged / Unknown 01/16/2024 1:55 PM CDT 01/16/2024 3:19 PM CDT Narrative [facility] - 01/17/2024 10:25 AM CDT <= 0.8 Negative. No detectable VZV IgG antibody. 0.9 - 1.0 Equivocal >=1.1 Positive Antibody testing was performed by multiplex flow immunoassay on the OhLife platform. us Referring Not In System IMMUNOLOGY ORDERABLES Fi nal Result [facility] [address] [place] [address], [place] * RUBEOLA (MEASLES) IGG (01/16/2024 1:55 PM CDT) MEASLES AB IGG 2.7 >=1.1 AI 01/17/2024 10:25 AM CDT [facility] Blood No Phlebotomy Charged / Unknown 01/16/2024 1:55 PM CDT 01/16/2024 3:19 PM CDT Narrative [facility] - 01/17/2024 10:25 AM CDT <= 0.8 Negative. No detectable Measles IgG antibody. 0.9 - 1.0 Equivocal >=1.1 Positive Antibody testing was performed by multiplex flow immunoassay on the BioPlex platform. us Referring Not In System IMMUNOLOGY ORDERABLES Fi nal Result [facility] [address] [place] [address], [place] * RUBELLA IMMUNITY IGG (01/16/2024 1:55 PM CDT) RUBELLA IMMUNITY Immune Immune, Invalid 01/17/2024 10:25 AM CDT [facility] Blood No Phlebotomy Charged / Unknown 01/16/2024 1:55 PM CDT 01/16/2024 3:19 PM CDT Narrative [facility] - 01/17/2024 10:25 AM CDT Antibody testing was performed by multiplex flow immunoassay on the BioPlex platform. us Referring Not In System CHEMISTRY ORDERABLES Fin al Result [facility] [address] [place] [address], [place] * MUMPS IGG (01/16/2024 1:55 PM CDT) Mumps Ab IgG 2.9 >=1.1 AI 01/17/2024 10:25 AM CDT [facility] Blood No Phlebotomy Charged / Unknown 01/16/2024 1:55 PM CDT 01/16/2024 3:19 PM CDT Narrative [facility] - 01/17/2024 10:25 AM CDT <= 0.8 Negative. No detectable Mumps IgG antibody. 0.9 - 1.0 Equivocal >=1.1 Positive Antibody testing was performed by multiplex flow immunoassay on the OhLife platform. us Referring Not In System IMMUNOLOGY ORDERABLES Fi nal Result [facility] [address] [place] [address], [place] * QUANTIFERON-TB GOLD PLUS (01/16/2024 1:55 PM CDT) NIL CONTROL 0.00 <8.01 IU/mL 01/18/2024 9:51 AM CDT [facility] TB ANTIGEN 1 0.00 <0.35 IU/mL 01/18/2024 9:51 AM CDT [facility] TB ANTIGEN 2 0.01 <0.35 IU/mL 01/18/2024 9:51 AM CDT [facility] MITOGEN CONTROL 10.00 >0.49 IU/mL 01/18/20 9:51 AM CDT [facility] INTEPRETATION TB NEGATIVE NEGATIVE, NEGATIVE (TB antigen response less than 25% of internal negative control value) 01/18/2024 9:51 AM CDT [facility] Comment:No immune response t o Mycobacterium tuberculosis antigens was noted. M. tuberculosis infection unlikely. Blood No Phlebotomy Charged / Unknown 01/16/2024 1:55 PM CDT 01/16/2024 3:19 PM CDT Narrative [facility] - 01/18/2024 9:51 AM CDT A [...] In System IMMUNOLOGY ORDERABLES Fi nal Result [facility] [address] [place] [address], * HEPATITIS B SURFACE ANTIBODY (HBSAB) (01/16/2024 1:55 PM CDT) HEPATITIS B SURFACE ANTIBODY <8.00 mIU/mL 01/16/2024 11:32 PM CDT [facility] Comment:Individual is consid ered not immune to HBV infection. Blood No Phlebotomy Charged / Unknown 01/16/2024 1:55 PM CDT 01/16/2024 3:19 PM CDT us Referring Not In System CHEMISTRY ORDERABLES Fin al Result [facility] [address] [place] [address], documented in this encounter Visit Diagnoses Not on filedocumented in this encounter Additional Health Concerns Assessment Noted Time PHQ-9 Depression Total Score: 2 09/26/19 24 1:32 PM BUCKET OPERATOR documented as of this encounter Care Teams Restaurant Assistant Relationship Specialty Start Date End Date Bessy Alcaraz APRN, ARAM #[address] [address] PCP - General Advanced Practice Nurse 10/30/20 Bessy Alcaraz APRN, ARAM #[address] [address] Nurse Practitioner Advanced Practice Nurse 10/28/20 Molly Costello APRN, EQUIPMENT SERVICE TECHNICIAN [address] [place] [address] Nurse Practitioner Advanced Practice Nurse 10/05/23 documented as of this encounter
--- OUTSIDE RECORDS SUMMARY | 2025-02-10 14:27 | XMS_ITS | Referral Summary ---
Author Organization [facility] Address [address] [place] [address] Care Team Providers Care Sales Program Coordinator Name Role Phone Bessy Alcaraz NP Primary Care Provider + Referring, Unknown MD Unavailable Unavailabl e Encounters Date Type Department Care Team Description 01/14/[address] [facility] Maternal- Medicine [address] [place] [address] 7th Floor [address] [place] [address] Michelle Lara, ROSY Recurrent loss (Primary Dx); Encounter for preconception consultation 01/09/2025 8:35 AM CDT Lab [facility] [address] [place] [address] 01/06/2025 8:[address] [facility] Maternal- Medicine [facility] [address] [facility] [address] [place] [address] Fabian's thyroiditis (Primary Dx); Encounter for preconception consultation; Recurrent loss; Other specified attention deficit hyperactivity disorder (ADHD); Pre-eclampsia, antepartum 12/18/[address] 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 Testing performed by: [facility], [address] [place] [address] Blood 01/09/2025 8:58 AM CDT 01/09/2025 12:21 PM CDT Sylvester Mcneal MD LAB BLOOD ORDERABLES Final Result Performing Organization Address City/[facility] Co de Phone Number [facility] ([place]) [address] [facility] [place] [address] * (ABNORMAL) hCG, blood, quantitative (01/09/2025 8:58 AM CDT) Pathologist [facility] hCG, quant 15.0(H) 0.0 - 5.0 IUnits/L Comment: Interpretive Data Male: < 5 IU/L Non- premenopausal Female: <5 IU/L The Uemr hCG Beta Quant assay procedure was used. Results from different manufacturers or methods may not be comparable. Serial testing should be performed using the same method. Interpretive Data was last revised on 2023 Blood 01/09/2025 8:58 AM CDT 01/09/2025 9:00 AM CDT Sylvester Mcneal MD LAB BLOOD ORDERABLES Edited Result - Final [facility] ([place]) 1 [facility] [place] [address] * (ABNORMAL) POCT hCG, urine (12/05/2024 1:49 PM CDT) HCG, ur, POC Positive(A) Negative Lot Number [id number] QC Backgroud Clear Acceptable QC Control Line Acceptable Urine 12/05/2024 1:49 PM CDT Flaquita Jorge MD POINT OF CARE TEST ORDERABLES Final Result from Last 3 Months Insurance [facility] CHOICE PLUS [id number] [place] [address] CHOICE PLUS Care Teams Sales Program Coordinator Relationship Specialty Start Date End Date Bessy Alcaraz NP [address] [facility] [address] PCP - General Nurse Practitioner 09/19/22 Referring, Unknown, 09/19/22
--- OUTSIDE RECORDS SUMMARY | 2025-02-10 14:27 | XMS_ITS | Clinical Summary ---
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 [address] [facility] Medical [address] [place] [address] Fabian's thyroiditis (Primary Dx); Encounter for preconception consultation; Recurrent loss; Other specified attention deficit hyperactivity disorder (ADHD); Pre-eclampsia, antepartum 12/18/2024 Telephone [facility] Maternal- Medicine [address] [place] [address] 7th Floor [address] [place] [address] Roberta Mesa, SAWYER PPC Appointment 12/05/2024 1:30 PM CDT Clinical Support [facility] [address] [facility] [address] [place] [address] Missed period (Primary Dx); Encounter for anatomic [...] on file Legal Sex Female 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 Testing performed by: [facility], [address] [facility], [place]., [address] Blood 01/09/2025 8:58 AM CDT 01/09/2025 12:21 PM CDT Sylvester Mcneal MD LAB BLOOD ORDERABLES Final Result [facility] ([place]) 1 [facility] [place] [address] * (ABNORMAL) hCG, blood, quantitative (01/09/2025 8:58 [...] ORDERABLES Edited Result - Final [facility] ([place]) 1 [facility] [place] [address] * (ABNORMAL) POCT hCG, urine (12/05/2024 1:49 PM CDT) HCG, ur, POC Positive(A) Negative Lot Number [id number] QC Backgroud Clear Acceptable QC Control Line Acceptable Urine 12/05/2024 1:49 PM CDT Flaquita Jorge MD POINT OF CARE TEST ORDERABLES Final Result from Last 3 Months Insurance [facility] CHOICE PLUS [facility] CHOICE PLUS Care Teams Forest Fire Warden Relationship Specialty Start Date End Date Bessy Alcaraz NP 2 [facility] [place] [place] [address] PCP - General Nurse Practitioner 09/19/22 Referring, MD Haylie 09/19/22
--- OUTSIDE RECORDS SUMMARY | 2025-02-10 14:27 | XMS_ITS | Encounter Summary ---
Author Organization [facility] Address [address] [place] [address] Phone Care Team Providers Care Heart Specialist Name Role Phone Bessy Alcaraz APRN, ARAM Unavailable + [phone] Bessy Alcaraz APRN, ARAM Primary Care Provid er Molly Costello APRN, BOOKSTORE CLERK Unavailable Encounter Details Date Type Department Care Team (Late st Contact Info) Description 11/12/2020 Telephone [facility] [address] [place] [address] Bessy Alcaraz APRN, BOOKSTORE CLERK #[address] [address] Social History Tobacco Use Types [...] 6week appointment Previous providers: Dr. Brad Chan [facility] [place], [place] Cee Chavez (endo) [facility] in [place] (pigeon fancier) documented in this encounter Plan of Treatment Upcoming Encounters Date Type Department Care Team (Late st Contact Info) Description 03/13/2025 8:00 AM CDT Office Visit [facility] - Family Medicine - [place] [address] [place] [address] Bessy Alcaraz APRN, BOOKSTORE CLERK #[address] [address] documented as of this encounter Visit Diagnoses Not on filedocumented in this encounter Additional Health Concerns Infection Onset Date Last Indicated Resolved Time COVID - 19 Confirmed 03/10/2022 03/10/2022 022 12:16 AM CDT C. difficile Rule-Out 10/05/2023 10/05/20232023 12:19 AM CDT Assessment Noted Time PHQ-9 Depression Total Score: 12 021 3:00 PM CDT documented as of this encounter Care Teams Heart Specialist Relationship Specialty Start Date End Date Bessy Alcaraz APRN, ARAM #2 [facility] [address] [place] [address] PCP - General Advanced Practice Nurse 10/30/20 Bessy Alcaraz APRN, ARAM #[address] [phone] Nurse Practitioner Advanced Practice Nurse 10/28/20 Molly Costello APRN, BOOKSTORE CLERK [address] [place] [address] Nurse Practitioner Advanced Practice Nurse 10/05/23 documented as of this encounter
--- OUTSIDE RECORDS SUMMARY | 2025-02-10 14:27 | XMS_ITS | Data Portability ---
Author Organization [facility] Address [address] [place] [address] Care Team Providers Care Machine Chocolate Molder Name Role Phone YEISON BENAVIDES Primary Care Provider Unavailabl e Assessment No assessment recorded. Plan of Treatment Reminders Order Date Submit Date Provider Last Modified By Organization Details Last Modified Time Details Appointments None recorded. Lab urinalysi s, dipstick 2023 024 In-Office Order, Internal Use Only DO Not Attach Compendium DO Not Attach Compendium, Do Not Delete/merge, [id number] 4 15:56:02 vaginal pathogens panel, SUNNY+probe , vaginal fluid 2023 024 DUNDALK [facility], [address], [place], [address], 4 06:21:36 TSH, ultra-sen sitive, serum 2023 024 RENZO [facility], [address] [facility] [address], [place], [address], 4 06:23:36 prolactin , serum 2023 024 RENZO [facility], [address] [facility] [address], [place], [address], 4 06:23:37 unlisted lab - DHEA-S+17 -ohp+tesd /T 2023 RENZO [facility], [address], [place], [address], 4 06:23:35 cytology report, thin prep, smear or scraping, cervical or vaginal 2023 [facility], [address], [place], [address], 4 10:15:32 urinalysi s, dipstick 2020 021 [email or web address] In-Office Order, Internal Use Only DO Not Attach Compendium DO Not Attach Compendium, Do Not Delete/merge, [id number] 1 09:23:18 test, urine 2019 020 [email or web address] 1 In-Office Order, Internal Use Only DO Not Attach Compendium DO Not Attach Compendium, Do Not Delete/merge, [id number] 0 18:05:35 bacterial vaginosis panel, vaginal 2019 020 DUNDALK [facility] (Centralized Electronic Ordering - All Locations), Patient Can Go To The Location Of Their Choice, [id number] 0 11:57:53 culture, vaginal/r ectal, streptoco ccus group B 2019 020 DUNDALK [facility] (Centralized Electronic Ordering - All Locations), Patient Can Go To The Location Of Their Choice, [id number] 0 11:57:53 Referral None recorded. Procedures None recorded. Surgeries None recorded. Imaging US, pelvis, complete 2023 024 [facility], [address] [facility] , [place], [address], 4 02:58:35 US, pelvis, transabdo lindsey + transvagi nal [address] (One Call Scheduling), [address] [place], [address], 1 14:35:07 Medication Orders multivita min tablet 2019 021 RENZO [facility] #09319, [address], [place], [place], [id number], 1 16:27:43 Calcium with Vitamin D 600 mg-10 mcg (400 unit) tablet 2019 021 [email or web address] [id number] [facility] #54079, [address], [place], [place], [id number], 1 09:37:29 Kyleena 17.5 mcg/24 hr (up to 5 years) 19.5 mg intrauter ine device 2019 020 [email or web address] [facility] #73776, [address], [place], [place], [id number], 4 14:57:34 RepHresh vaginal gel 2019 020 [facility] #03325, [address] [place], [id number], 0 16:22:19 RepHresh Pro-B 2.5 billion cell capsule 2019 020 [facility] #48494, [address], [place], [place], [id number], 0 16:22:07 Ortho Tri-Cycle n (28) 0.18 mg(7)/0.2 15mg(7)/0 .25 mg(7)-0.0 35 mg tablet 2019 020 [facility] #53474, [address], [place], [place], [id number], 0 16:22:16 Kyleena 17.5 mcg/24 hr (up to 5 years) 19.5 mg intrauter ine device 2019 [email or web address] Not available 4 14:57:34 multivita min tablet 2019 [facility] #95504, [address], [place], [place], [id number], 1 16:27:40 Calcium with Vitamin D 600 mg-10 mcg (400 unit) tablet 2019 [facility] #27392, [address], [place], [place], [id number], 1 16:27:20 escitalop maria eugenia 20 mg tablet [facility], [address], [place], [place], [id number], 0 16:22:33 Patient TargetsNo targets recorded. Patient Instructions Encounter Date Encounter Id Patient Instructions Last Modified By Organization Details Last Modified Time 04/06/2020 [id number] anemia: care instructions joseerman Not available 04/06/2020 15:25:39 Discussed IUD removal and insertion in Aug 2020. [email or web address] Not available 04/06/2020 17:56:56 06/04/2024 [id number] painful urinatio n (dysuria): care instructions tran [...] DO Not Attach Compendium, Do Not Delete/merge, [id number] 07/02/2020 16:38:55 04/06/20 20 04/08/2020 bacte rial vagin osis panel , vagin al trich vag by SUNNY NEGATI VE negati ve Not Available [facility] ([facility]) [address] [place], [address], 04/09/2020 11:57:53 04/06/20 20 04/08/2020 bacte rial vagin osis panel , vagin al hsv 1 SUNNY NEGATI VE negati ve Not Available [facility] ([facility]) [address] [place], [address], 04/09/2020 11:57:53 04/06/2004/08/2020 bacte rial vagin osis panel , vagin al hsv 2 SUNNY NEGATI VE negati ve Not Available [facility] ([facility]) [address] [place], [address], 04/09/2020 11:57:53 04/06/2004/09/2020 bacte rial vagin osis panel , vagin al atopobium vaginae LOW - 0 score Not Available [facility] ([facility]) [address] [place], [address], 04/09/2020 11:57:53 04/06/2004/09/2020 bacte rial vagin osis panel , vagin al bvab 2 LOW - 0 score Not Available [facility] ([facility]) [address] [place], [address], 04/09/2020 11:57:53 04/06/2004/09/2020 bacte rial vagin osis [...] is not neces sujata. Not Available [facility] ([facility]) [address] [place], [address], 04/09/2020 11:57:53 04/06/2004/09/2020 bacte rial vagin osis panel , vagin al samira albicans, SUNNY NEGATI VE negati ve Not Available [facility] ([facility]) [address] [place], [address], 04/09/2020 11:57:53 04/06/2004/09/2020 bacte rial vagin osis panel , vagin al samira glabrata, SUNNY NEGATI VE negati ve Not Available [facility] ([facility]) [address] [place], [address], 04/09/2020 11:57:53 04/06/2004/09/2020 bacte rial vagin osis panel , vagin al chlamydia trachomatis, SUNNY NEGATI VE negati ve Not Available [facility] ([facility]) [address] [place], [address], 04/09/2020 11:57:53 04/06/2004/09/2020 bacte rial vagin osis panel , vagin al neisseria gonorrhoeae, SUNNY NEGATI VE negati ve Not Available [facility] ([facility]) [address] [place], [address], 04/09/2020 11:57:53 04/06/2004/08/2020 cultu re, vagin al/re [...] n is noted . Not Available [facility] ([facility]) [address] [facility], [place], [address], 04/09/2020 11:57:53 06/08/20 21 06/08/2021 urina lysis , dipst ick Leukocytes Trace Not Available In-Offi ce Order Internal Use Only DO Not Attach Compendium DO Not Attach Compendium, Do Not Delete/merge, [id number] 06/08/2021 16:32:46 06/08/20 21 06/08/2021 urina lysis , dipst ick Nitrite negati ve Not Available In-Office Order Internal Use Only DO Not Attach Compendium DO Not Attach Compendium, Do Not Delete/merge, [id number] 06/08/2021 16:32:46 06/08/20 21 06/08/2021 urina lysis , dipst ick Urobilinogen .2 Not Available In-Of fice Order Internal Use Only DO Not Attach Compendium DO Not Attach Compendium, Do Not Delete/merge, [id number] 06/08/2021 16:32:46 06/08/20 21 06/08/2021 urina lysis , dipst ick Protein Negati ve Not Available In-Office Order Internal Use Only DO Not Attach Compendium DO Not Attach Compendium, Do Not Delete/merge, [facility] 06/08/2021 16:32:46 06/08/20 21 06/08/2021 urina lysis , dipst ick pH 5.5 Not Available In-Office Order Internal Use Only DO Not Attach Compendium DO Not Attach Compendium, Do Not Delete/merge, [id number] 06/08/2021 16:32:46 06/08/20 21 06/08/2021 urina lysis , dipst ick Blood Negati ve Not Available In-Office Order Internal Use Only DO Not Attach Compendium DO Not Attach Compendium, Do Not Delete/merge, [facility] 06/08/2021 16:32:46 06/08/20 21 06/08/2021 urina lysis , dipst ick Specific [place] 1.030 Not Available In-Off ice Order Internal Use Only DO Not Attach Compendium DO Not Attach Compendium, Do Not Delete/merge, [id number] 06/08/2021 16:32:46 06/08/20 21 06/08/2021 urina lysis , dipst ick Ketone Negati ve Not Available In-Office Order Internal Use Only DO Not Attach Compendium DO Not Attach Compendium, Do Not Delete/merge, [id number] 06/08/2021 16:32:46 06/08/20 21 06/08/2021 urina lysis , dipst ick Bilirubin Negati ve Not Available In-Office Order Internal Use Only DO Not Attach Compendium DO Not Attach Compendium, Do Not Delete/merge, [id number] 06/08/2021 16:32:46 06/08/20 21 06/08/2021 urina lysis , dipst ick Glucose Negati ve Not Available In-Office Order Internal Use Only DO Not Attach Compendium DO Not Attach Compendium, Do Not Delete/merge, [id number] 06/08/2021 16:32:46 06/04/20 24 06/05/2024 NUSWA B VAGIN ITIS PLUS (VG+) atopobium vaginae LOW - 0 score Not Available [facility] ([facility]) [address] [facility], [place], [address], 06/06/2024 06:21:36 06/04/2006/05/2024 NUSWA B VAGIN ITIS PLUS (VG+) bvab 2 LOW - 0 score Not Available [facility] ([facility]) [address] [facility], [place], [address], 06/06/2024 06:21:36 06/04/20 24 06/05/2024 NUA B [...] prese nce of BV. Not Available [facility] ([facility]) [address] [facility], [place], [address], 06/06/2024 06:21:36 06/04/20 24 06/05/2024 NUSWA B VAGIN ITIS PLUS (VG+) samira albicans, SUNNY NEGATI VE negati ve Not Available [facility] ([facility]) [address] [facility], [place], [address], 06/06/2024 06:21:36 06/04/20 24 06/05/2024 NUSWA B VAGIN ITIS PLUS (VG+) samira glabrata, SUNNY NEGATI VE negati ve Not Available [facility] ([facility]) [address] [facility], [place], [address], 06/06/2024 06:21:36 06/04/20 24 06/06/2024 NUSWA B VAGIN ITIS PLUS (VG+) trich vag by SUNNY NEGATI VE negati ve Not Available [facility] ([facility]) [address] [facility], [place], [address], 06/06/2024 06:21:36 06/04/20 24 06/06/2024 NUSWA B VAGIN ITIS PLUS (VG+) chlamydia trachomatis, SUNNY NEGATI VE negati ve Not Available [facility] ([facility]) [address] [facility], [place], [address], 06/06/2024 06:21:36 06/04/20 24 06/06/2024 NUSWA B VAGIN ITIS PLUS (VG+) neisseria gonorrhoeae, SUNNY NEGATI VE negati ve Not Available [facility] ([facility]) [address] [facility], [place], [address], 06/06/2024 06:21:36 06/04/20 24 06/11/2024 IGP, RFX APTIM A HPV ASCU diagnosis: COMMEN T NEGAT GEOVANNA FOR INTRA EPITH ELIAL LESIO N OR NOAH BURT . Not Available [facility] ([facility]) [address] [facility], [place], [address], 06/11/2024 10:15:32 06/04/20 24 06/11/2024 IGP, RFX APTIM A HPV ASCU specimen adequacy: COMMEN T Satis facto ry for evalu ation . Endoc ervic al and/o r squam ous metap lasti c cells (endo cervi larissa compo nent) are prese nt. Not Available [facility] ([facility]) [address] [facility], [place], [address], 06/11/2024 10:15:32 06/04/20 24 06/11/2024 IGP, RFX APTIM A HPV ASCU clinician provided ICD10: SOLE Dorado Z12.4 R30.0 N93.8 Not Available [facility] ([facility]) [address] [facility], [place], [address], 06/11/2024 10:15:32 06/04/20 24 06/11/2024 IGP, RFX APTIM A HPV ASCU performed by: Keon Donaldson (ASCP ) Not Available [facility] ([facility]) [address] [place], [address], 06/11/2024 10:15:32 06/04/20 24 06/11/2024 IGP, RFX APTIM A HPV ASCU . . Not Available [facility] ([facility]) [address] [facility], [place], [address], 06/11/2024 10:15:32 06/04/20 24 06/11/2024 IGP, RFX [...] ts do occur . Not Available [facility] ([facility]) [address] [place], [address], 06/11/2024 10:15:32 06/04/20 24 06/11/2024 IGP, RFX APTIM A HPV ASCU test methodology: SOLE Dorado This liqui d based ThinP rep(R ) pap test was scree josef with the use of an image guide d systjoe m. Not Available [facility] ([facility]) [address] [place], [address], 06/11/2024 10:15:32 06/04/20 24 06/11/2024 IGP, RFX APTIM A HPV ASCU . COMMEN T The HPV DNA refle x crite day were not met with this speci men resul t there fore, no HPV testi ng was perfo rmed. Not Available [facility] ([facility]) [address] [facility], [place], [address], 06/11/2024 10:15:32 06/04/20 24 06/05/2024 DHEA- S+17- OHP+T ESD/T DHEA-sulfate 334.0 ug/dL 84.8-3 78.0 Not Available [facility] ([facility]) [address] [facility], [place], [address], 06/12/2024 06:23:35 06/04/20 24 06/05/2024 DHEA- S+17- OHP+T ESD/T testosterone 29 NG/dL 13-71 Not Available [facility] ([facility]) [address] [place], [address], 06/12/2024 06:23:35 06/04/20 24 06/09/2024 DHEA- S+17- OHP+T ESD/T free testosterone (direct) 1.5 pg/mL 0.0-4. 2 Not Available [facility] ([facility]) [address] [place], [address], 06/12/2024 06:23:35 06/04/20 24 06/12/2024 DHEA- S+17- OHP+T ESD/T 17-oh progesterone lcms 26 NG/dL Adult Femal e Folli cular 15 - 70 Lutea l 35 - 290 Not Available [facility] ([facility]) [address] [place], [address], 06/12/2024 06:23:35 06/04/20 24 06/05/2024 TSH RFX ON ABNOR MAL TO FREE T4 TSH 1.950 uIU/m L 0.450- 4.500 Not Available [facility] ([facility]) [address] [facility], [place], [address], 06/12/2024 06:23:36 06/04/20 24 06/05/2024 PROLA CTIN prolactin 10.8 NG/mL 4.8-33 .4 Not Available [facility] ([facility]) [address] [facility], [place], [address], 06/12/2024 06:23:37 06/04/20 24 06/04/2024 urina lysis , dipst ick Leukocytes Negati ve Not Available In-Office Order Internal Use Only DO Not Attach Compendium DO Not Attach Compendium, Do Not Delete/merge, [id number] 06/04/2024 15:28:27 06/04/2006/04/2024 urina lysis , dipst [...] 06/04/2024 urina lysis , dipst ick Specific [place] 1.025 Not Available In-Off ice Order Internal [...] compl ete No observ ation record ed. [facility] (Radiology) [address] [place], [address], 07/09/2024 12:20:25 Result Notes None recorded. Problems Name Problem SNOMED Code Status Onset Date Resolution Date Notes Provider Name and Address Organization Details Recorded Time Acute urinary tract infection 930194625 Completed 201806/04/2024 Yeison Benavides MD Attn: Deborah lyon, [facility], [place], [address], [place] [facility] 4 14:48:29 Bacterial vaginosis 819947527 Completed 201806/04/2024 Yeison Benavides MD Attn: Deborah lyon,[address] [place] [address], [place], [address], [place] [facility] 14:48:31 Acute cerviciti s 82958854 Completed 201806/04/2024 Yeison Benavides MD Attn: Deborah lyon,[address] [place] [address], [place], [address], [place] [facility] 4 14:48:26 Irritable bowel syndrome 59895187 Completed 201806/04/2024 Yeison Benavides MD Attn: Deborah lyon,[address] [place] [address], [place], [address], [place] [facility] 4 14:48:36 Depressiv e disorder 70905325 Active 2019 Yeison Benavides MD Attn: Deborah lyon,[address] [facility], [place], [address], [place] [facility] 4 14:48:41 Vaginitis 75893448 Completed 201906/04/2024 Yeison Benavides MD Attn: Deborah lyon,[address] [place] [address], [place], [address], [place] [facility] 4 14:48:46 Acne 44186282 Completed 201906/04/2024 Yeison Benavides MD Attn: Deborah lyon,[address] [place] [address], [place], [address], [place] [facility] 4 14:48:23 Past history of pre-eclam psia 408365541339 100 Active 2023 Yeison Benavides MD Attn: Deborah lyon,[address] [facility], [place], [address], [place] [facility] 4 15:50:51 Inflammat ion of cervix 80797113 Active 2023 Yeison Benavides MD Attn: Deborah lyon,[address] [facility], [place], [address], [place] [facility] 4 16:10:50 Dysuria 72596241 Active 2023 Yeison Benavides MD Attn: Deborah lyon,[address] [facility], [place], [address] [facility] 4 16:10:53 Abnormal uterine bleeding 173108067970 00 Active 2023 Yeison Benavides MD Attn: Deborah lyon,[address] [facility], [place], [address], [place] [facility] 4 16:10:56 Adult health examinati on Active 2023 Yeison Benavides MD Attn: Deborah lyon,[address] [facility], [place], [address], [place] [facility] 4 16:10:58 Problem Notes None recorded. Procedures Surgical History Date Name Laterality Status Provider Name and Address Organization Details Recorded Time 07/02/20 20 IUD Replacement completed KAILEY ROBLES Attn: Accounting,[address] [place], [address], [place] [facility] 07/02/2020 16:36:44 02/23/20 19 Date of Last Pap Smear completed Megna Armendariz [place] - [facility] 04/06/2020 14:39:16 09/19/19 18 IUD Insertion completed Jose C Caba [place] - [facility] 09/19/2017 17:19:35 Tonsillectomy completed Tracy Townsend [place] [facility] 01/19/2016 15:07:30 Imaging Results None recorded. Procedure Notes None recorded. Medical Equipment None Reported. Allergies Allergen ID Allergen Name Allergen Category Reaction Reaction Severity Criticality Documentation Date Start Date Code Code System Note Provider Name and Address Organization Details Recorded Time 539338 NuvaRing medicatio n edema severe Not available 09/12/2017 00042 9 RxNorm Tracy DEO Town[place] null, [place] [facility] 8 15:27:10 653182 latex environme nt,medica tion other severe Not available 09/19/2017 35413 91 RxNorm pt state s react ion to latex condo ms, vagin al swell ing, cb-rm a Megan Armendariz [place] null, [place] [facility] 8 15:16:02 090421 Monistat Simple Therapy medicatio n swelling Not available Not available 06/04/2024 70879 72 RxNorm LORENA [place] null, [place] - [...] Updated DateTime 08/21/2020 152.4 cm 37.3 kg/m2 96212.29 g 114/88 mm[Hg] Lata Bennett MA [facility] 08/21/2020 16:13:19 Date Recorded Body mass index (BMI) Body weight Systolic And Diastolic Provider Name and Address Organization Details Last Updated DateTime 04/06/2020 35.7 kg/m2 71002.4 g 114/78 mm[Hg] Megan Armendariz MA [facility] 04/06/2020 14:55:46 Date Recorded Body height Provider Name an d Address Organization Details Last Updated DateTime 04/06/2020 152.4 cm Cee March MA [facility] 0 14:40:20 Date Recorded Body height Body mass index (BMI) Body weight Respiratory rate Body temperature Oxygen saturation Oxygen saturation in Arterial blood by Pulse oximetry Heart rate Systolic And Diastolic Provider Name and Address Organization Details Last Updated DateTime 4 152.4 cm 35.2 kg/m2 22539.1 3 g 18 /min 98.2 [degF] 98 % 98 % 106 /min 120/83 mm[Hg] LORENA Hawthorne [facility] 4 15:05:25 Date Recorded Body height Body mass index (BMI) Body weight Systolic And Diastolic Provider Name and Address Organization Details Last Updated DateTime 06/08/2021 152.4 cm 34.6 kg/m2 34462.28 g 110/66 mm[Hg] Lata Bennett MA [facility] 06/08/2021 16:34:20 Date Recorded Body height Body mass index (BMI) Body weight Systolic And Diastolic Provider Name and Address Organization Details Last Updated DateTime 07/02/2020 152.4 cm 36.9 kg/m2 88106.96 g 110/68 mm[Hg] Nakia DEO Chirinos [facility] 07/02/2020 16:21:17 Social History Question Answer Notes LastModified by Organizat ion Details LastModified Time Tobacco Smoking Status Never Smoker Tracy DEO Townsend null, [place] - [facility] 01/19/2016 15:07:31 Do You Have An Advance Directive? No Information n ot available 04/21/2016 Is Blood Transfusion Acceptable In An Emergency? Yes Information not available 04/21/2016 What Is Your Level Of Caffeine Consumption? Occasional Information not available 09/20/2018 How Much Tobacco Do You Chew? None [email or web address] Information not available 01/19/2016 In The 14 [...] Type Of Diet Are You Following? REGULAR [email or web address] Information n ot available 01/19/2016 Which Illicit Or Recreational Drugs Have You Used? Denies Information not available 01/19/2016 Education 12 [email or web address] Information no t available 01/19/2016 Live Alone Or With Others? With Others [email or web address] Information not available 01/19/2016 What Was The Date Of Your Most Recent Tobacco Screening? 06/04/2024 Information not available 06/04/2024 How Many Children Do You Have? 0 [email or web address] Information not available 01/19/2016 Performs Monthly Self-breast Exam? No Information no t available 04/21/2016 Do You Have Any Pets? Yes 1 Dog Information not available 06/08/2021 Do You Use Protection During Sex? No Information not available 04/21/2016 What Is Your Relationship Status? Single Information not available 01/19/2016 Do You Use Your Seat Belt Or Car Seat Routinely? Yes Information not available 06/08/2021 Seat Belts Used Routinely Yes [email or web address] Information not available 01/19/2016 Are You Sexually Active? Yes Information not available 04/21/2016 Do You Have Smoke And Carbon Monoxide Detectors In Your Home? Yes Information not available 06/08/2021 Are You Passively Exposed To Smoke? No Information no t available 06/08/2021 How Much Tobacco Do You Smoke? No [email or web address] Information not available 01/19/2016 General Stress Level High Information not available 09/20/2018 Do You Use Sunscreen Routinely? Yes Information not available 04/21/2016 Has Tobacco Cessation Counseling Been Provided? Yes Information not available 06/04/2024 On What Date Was Tobacco Cessation Counseling Provided? 06/04/2024 Information not available 06/04/2024 How Many Years Have You Smoked Tobacco? 0 [email or web address] Information not available 01/19/2016 Sex: Unknown Functional [...] 07/03/2019 What is your exercise level? Occasional [email or web address] Information not available 01/19/2016 Mental Status None [...] Disorder N Colon Polyps N Heart Attack (VT) N Diabetes N Cardiomyopathy N Blood Transfusions [...] completed SURYA JAFFE MD Attn: Accounting,[address] [place], [address], [place] [facility] 06/04/2024 15:48:20 COVID-19, mRNA, LNP-S, PF, 30 mcg/0.3 mL dose 1 completed SURYA JAFFE MD Attn: Accounting,[address] [place], [address], [place] [facility] 06/04/2024 15:48:20 COVID-19, mRNA, LNP-S, PF, 30 mcg/0.3 mL dose 1 completed SURYA JAFFE MD Attn: Accounting,[address], [place], [place], [address] [place] [address], [place] [facility] 06/04/2024 15:48:20 COVID-19, mRNA, LNP-S, PF, 30 mcg/0.3 mL dose 1 completed SURYA JAFFE MD Attn: Accounting,[address], [place], [address] [place] [address], [place] [facility] 06/04/2024 15:48:20 Tdap 3 completed SURYA JAFFE MD Attn: Accounting,[address], [place], [address] [place] [address], [place] [facility] 06/04/2024 15:48:20 varicella 9 completed SURYA JAFFE MD Attn: Accounting,[address], [place], [address] [place] [address], [place] [facility] 06/04/2024 15:48:20 OPV 7 completed SURYA JAFFE MD Attn: Accounting,[address], [place], [address] [place] [address], [place] [facility] 06/04/2024 15:48:20 OPV 7 completed SURYA JAFFE MD Attn: Accounting,[address], [place], [address] [place] [address], [place] [facility] 06/04/2024 15:48:20 DTP-Hib 7 completed SURYA JAFFE MD Attn: Accounting,[address], [place], [address] [place] [address], [place] [facility] 06/04/2024 15:48:20 DTP-Hib 7 completed SURYA JAFFE MD Attn: Accounting,[address], [place], [address] [place] [address], [place] [facility] 06/04/2024 15:48:20 DTP-Hib 7 completed SURYA JAFFE MD Attn: Accounting,[address] [facility], [place], [address] [place] [address], [place] [facility] 06/04/2024 15:48:20 Hep B, adolescent or pediatric 7 completed SURYA JAFFE MD Attn: Accounting,[address], [place], [address] [place] [address], [place] [facility] 06/04/2024 15:48:20 Hep B, adolescent or pediatric 7 completed SURYA JAFFE MD Attn: Accounting,[address] [facility], [place], [address] [place] [address], [place] [facility] 06/04/2024 15:48:20 Hep B, adolescent or pediatric 7 completed SURYA JAFFE MD Attn: Accounting,[address] [facility], [place], [address] [place] [address], [place] [facility] 06/04/2024 15:48:20 Hep A, pediatric, unspecified formulation 9 completed SURYA JAFFE MD Attn: Accounting,[address] [facility], [place], [place], [address] [place] [address], [place] [facility] 06/04/2024 15:48:20 meningococcal C conjugate 9 completed SURYA JAFFE MD Attn: Accounting,[address] [facility], [place], [address] [place] [address], [place] [facility] 06/04/2024 15:48:20 meningococcal MCV4P 5 completed SURYA JAFFE MD Attn: Accounting,[address] [facility], [place], [address] [place] [address], [place] [facility] 06/04/2024 15:48:20 Influenza, split virus, quadrivalent, PF 2 completed SURYA JAFFE MD Attn: Accounting,[address] [facility], [place], [place], [address] [place] [address], [place] [facility] 06/04/2024 15:48:20 Influenza, split virus, quadrivalent, PF 3 completed SURYA JAFFE MD Attn: Accounting,204 1 [facility], [place], [address], [facility] - [facility] 06/04/2024 15:48:20 HPV9 9 completed Not Available [facility] 08/10/2019 02:51:02 HPV9 9 completed Not Available [facility] 08/10/2019 02:46:06 HPV9 9 completed Not Available [facility] 08/10/2019 02:38:48 Past Encounters Encounter ID Performer Location Encounter Start Date Encounter Closed Date Diagnosis/Indication Diagnosis SNOMED-CT Code Diagnosis ICD10 Code Diagnosis Note [id number] Daren Holt MD [facility] ([employer]) [address] [place] [address] [phone] 0 01/15/2016 14:11:14 01/15/2016 15:40:30 Family planning education 083854347 Z30.02 [id number] Daren Holt MD [facility] ([employer]) [address] [place] [address] [id number] 0 02/25/2016 11:12:21 02/29/2016 11:23:29 Family planning education 198876739 Z30.02 [id number] Daren Holt MD [facility] ([employer]) [address] [place] [address] [id number] 0 04/21/2016 14:49:52 04/27/2016 11:51:21 Initial prescription of oral contraception 057684606 Z30.938 [id number] MD Dudley Chandler ([employer]) [address] [place] [address] [id number] 0 09/12/2017 14:44:25 09/12/2017 16:01:18 Family planning surveillance 118823899 Z30.09 Vaginismus due to non-psychogenic cause 165388843 N94.2 Dyspareunia 53696121 N94 .10 [id number] MD Dudley Chandler ([employer]) [address] [place] [address] [id number] 0 09/19/2017 14:38:41 09/19/2017 16:10:43 Insertion of intrauterine contraceptive device 89035715 Z30.430 Family rosa nning surveillance 094024739 Z30.09 [id number] [facility] [employer] [facility] [address] [place] [address] [id number] 0 11/16/2017 14:39:05 11/16/2017 15:55:31 Surveillance of intrauterine device contraception done 6284941029 23878 Z30.40 Family rosa nning surveillance 750024772 Z30.09 Exposure t o sexually transmissible disorder 218751462 Z20.2 Bacterial vaginosis 4197 68950 N76.0 [id number] MD Dudley Chandler ([employer]) [address] [place] [address] [id number] 0 09/20/2018 11:47:15 09/20/2018 15:25:25 Family planning surveillance 783961684 Z30.09 Active or passive immunization 269472774 Z23 Surveillan ce of intrauterine device contraception done 1310467680 50974 Z30.40 Exposure t o sexually transmissible disorder 163784406 Z20.2 [id number] Jose C Caba MD [facility] ([employer]) [address] [place] [address] [id number] 0 11/29/2018 09:45:15 11/30/2018 09:29:59 Acute urinary tract infection 012332991 N39.0 Family rosa nning surveillance 728629501 Z30.09 [id number] Jose C Caba MD [facility] ([employer]) [address] [place] [address] [id number] 0 02/21/2019 14:09:38 02/22/2019 13:03:00 Active or passive immunization 255236511 Z23 Family rosa nning surveillance 703151773 Z30.09 Gynecologi c examination 04623305 Z01.419 Z11.51 Surveillan ce of intrauterine device contraception done 4782989353 75195 Z30.40 Bacterial vaginosis 4197 06109 N76.0 Acute cervicitis 8188110 0 N72 Exposure t o sexually transmissible disorder 973055756 Z20.2 [id number] [facility] [facility] [employer] [facility] [address] [place] [address] [id number] 0 07/03/2019 14:43:04 07/03/2019 16:48:49 Family planning surveillance 484830745 Z30.09 Acute cervicitis 7611159 0 N72 Surveillan ce of intrauterine device contraception done 6412787738 49133 Z30.40 Urinary incontinence 165 546460 R32 Active or passive immunization 120711090 Z23 [id number] MD Dudley Chandler ([employer]) [address] [place] [address] [id number] 0 03/10/2020 10:25:52 03/11/2020 07:14:27 Family planning surveillance 594730914 Z30.09 Gynecologi c examination 97826888 Z01.419 Z11.51 Candidiasis of vagina 72 317865 B37.3 Vulvitis 44883648 N76.2 Depressive disorder 3548 9007 F32.9 [id number] MD Dudley Chandler ([employer]) [address] [place] [address] [id number] 0 04/06/2020 14:15:18 04/07/2020 09:52:46 Depressive disorder 38478350 F32.9 Family rosa nning surveillance 015187894 Z30.09 Acne 18228731 L70.9 Anemia 663306971 D64.9 Surveillan ce of intrauterine device contraception done 7236777532 19735 Z30.40 Vaginitis 09902779 N76.0 Exposure t o sexually transmissible disorder 544000428 Z20.2 [id number] KAILEY ROBLES ([employer]) [address] [place] [address] [id number] 0 07/02/2020 16:02:07 07/14/2020 13:44:13 Replacement of intrauterine contraceptive device 80825567 Z30.433 24yo F presents for IUD replacemen t. Aurora removed and Kyleena inserted without issue. Pt tolerated well. (See procedure note for more details.) Counseled pt on IUD and side effects. RTC in weeks for IUD check. [id number] KAILEY ROBLES ([employer]) [address] [place] [address] [id number] 0 08/21/2020 15:38:54 08/22/2020 09:26:57 Surveillance of intrauterine device contraception done 9818696208 58809 Z30.40 Kyleena placed 07/02/20. Pt reports spotting twice per day for the last 3 weeks. IUD strings seen on exam. Advised spotting is common for the 1-3 months after IUD insertion. RTC if bleeding worsens/pe rsists. [id number] JOHANNA MENCHACA CK, DO [facility] ([employer]) [address] [place] [address] [id number] 0 06/08/2021 15:49:53 06/10/2021 10:05:33 Postcoital bleeding 17629200 N93.0 2 episodes of painless vaginal bleeding associated with intercours e. Pelvic deferred by patient. Will assess IUD position on pelvic US as above. Given IUD in situ, possible bleeding represents menses. Plans for pelvic with persistenc e. Dysuria 59997081 R30.9 smells like popcorn x 3 weeks on and offdysuria x2 daysUA reassuring today Lower abdominal pain 545 09722 R10.30 -Patient reports intermitte nt bilateral RLQ and LLQ abdominal pain localized superior and medial to ASIS's.-Pa in occasional ly associated with deep penetratio n with intercours e. Patient concerned about ovarian pathology- Pelvic US to assess for gynecologi c etiologies . Given localizati on, MSK etiology possible. [id number] SURYA JAFFE MD [place] [address] [facility] [address] [facility] [address] [place] [address] 06/04/2024 14:36:15 06/18/2024 09:48:25 Dysuria 62155469 R30.0 - painful urination for about a week, however negative dipstick and does not report back pain- differenti als include yeast/BV infection or STI/STD infxn Screening for malignant neoplasm of cervix 753134733 Z12.4 last pap smear in 2019, was WNLpap smear performed at this time, will follow up on results Abnormal u terine bleeding 3101721655 9100 N93.8 - pt complainin g of [...] based on results Adult heal th examination 062812491 Z00.00 - 28 yo F well appearing female- problem list and medication s reviewed- not UTD on pap smear, consented to having one done at this time- recommende d initiation of vitamins Inflammati on of cervix 31172263 N72 cervix noted to be inflamed and [...] De Member ID Guarantor Name 06/08/2021 1 [facility] - DOS PRIOR TO 2021 (MEDICAID REPLACEMENT - HMO) Cee Aldridge [id number] Cee March 06/08/2021 2 [place] DEPARTMENT OF PUBLIC AID Cee Aldridge [id number] Cee March 02/25/2016 1 [facility] (PPO) [id number] Steven Aldridge [id number] Cee March 06/08/2021 1 [facility] (MEDICAID HMO) [id number] Cee Aldridge [id number] Cee March 05/22/2024 1 [facility] (MEDICAID HMO) [id number] Cee Aldridge [id number] Cee March 07/11/2024 1 [facility] Donal March [id number] Cee March 06/08/2021 1 [facility] (MEDICAID HMO) Cee lAdridge [id number] Cee March Notes Date Note Type Note [...] in near future. Jose C Caba null, [place] - [facility] 04/06/2020 18:02:09 07/02/2020 text/html 24yo presenting for IUD replacement. Currently has Aurora IUD but would like to switch to 5 year Kyleena. She has no complaints with IUD. No concerns today. Denies abnormal discharge, pelvic pain, n/v, fevers. LMP 12. KAILEY ROBLES Attn: Accounting,204 [address] [place], [address], [facility] - [facility] 07/09/2020 15:22:47 08/21/2020 text/html 24yo nulligravid a presenting for IUD check. She is currently using Kyleena, placed 07/02/20. LMP 07/02. She reports some spotting 2x/day for the last three weeks. Pt denies abdominal pain, fever, chills, discharge, or any other complaints at this time. KAILEY ROBLES Attn: Accounting,[address] [facility], [place], [address], [facility] - [facility] 08/24/2020 17:47:09 06/08/2021 text/html [...] No other complaints today Johanna Borjas null, [place] - [facility] 06/09/2021 09:23:44 06/04/2024 text/html 28yo F PMH of AD HD, depression & anxiety, IBS-C presents to clinic today to establish care ObGyn Hx [id number] Pap: 2019 was WNL PHQ-9: 12 Medicationsas [...] frequency SURYA JAFFE MD Attn: Accounting,[address] [place], [address], [facility] - [facility] 06/05/2024 16:42:45 OBGyn Episode Ob Episode Information Episode Created Date Number of Fetuses Patient Bloodtype Patient rh Status Prepregnancy Weight lbs Domestic Partner Domestic Partner Phone Father Name Housekeeper Status 06/04/20 24 1 CLOSED Fetus Data First Name Last Name Admitted to NICU Weight (g) Sex Living Outcome Pediatric Complications Fetus ID Race Codes Race Delivery Type F [id number] Vaginal Alec Calculation Initial Alec Date Initial [...]
--- OUTSIDE RECORDS SUMMARY | 2025-02-10 14:27 | XMS_ITS | Clinical Summary ---
Author Organization [facility] [employer] Address [address] [place] [place] [address] Care Team Providers Care Inspector Advanced Composite Name Role Phone Bessy Alcaraz APRN-FLIGHT MANAGER Primary Care Provide r Source Comments [facility] [employer] [facility],non-owned Affiliates and Associated Physician Practices is amultiple site organization consisting of ambulatory clinics and hospital sitesin [place], [place], [place] and [place]. This disclosure is being madepursuant to the Care Everywhere program and may not contain all information available regarding this patient. Last updated 18.[facility] [employer] [facility] Allergies No known active allergies Medications * [...] on file Legal Sex Female 5:38 AM STATE ARCHIVIST Gender Identity Not on file Sexual Orientation Not on file Last Filed Vital Signs Vital Sign Reading Time Taken Comments Blood Pressure 127/78 08/14/2020 3:19 PM STATE ARCHIVIST Pulse 82 08/14/2020 3:19 PM STATE ARCHIVIST Temperature 37 C (98.6 F) 08/14/2020 3:19 PM STATE ARCHIVIST Respiratory Rate 16 08/14/2020 3:19 PM STATE ARCHIVIST Oxygen Saturation - - Inhaled Oxygen Concentration - - Weight 87.1 kg (192 lb) 08/14/2020 3:19 PM STATE ARCHIVIST Height 157.5 cm (5' 2) 08/14/2020 3:19 PM STATE ARCHIVIST Body Mass Index 35.12 08/14/2020 3:19 PM STATE ARCHIVIST Plan of Treatment Upcoming Encounters Date Type Department Care Team (Late st Contact Info) Description 03/13/2025 2:40 PM CDT Office Visit [facility] - Dermatology [address] [place] [address] Stephane Gupta MD [facility] DEPT OF DERMATOLOGY [address] [place] [address] Health Maintenance Due Date Last Done Comments HIV SCREENING 12/12/2011 HEPATITIS C SCREENING 12/07/2014 DTAP/TDAP/TD VACCINES (1 - Tdap) 12/12/2015 HEPATITIS B VACCINE (1 of 3 - 19+ 3-dose series) 12/12/2015 PAP SMEAR 2017 HPV VACCINE (1 - 3-dose SCDM series) 12/12/2023 COVID-19 VACCINE (1 - 2023-2 5 season) 2024 DEPRESSION SCREENING 07/24/2024 INFLUENZA VACCINE (#1) 2025 0, 05/17/2019 ZOSTER VACCINE (1 of 2) [...] topic Insurance MEDICAID - OUT OF STATE [facility] * Guarantor: Cee Nevarez Account Type Relation to Patient Date of Phone Billing Address Personal/Family Spouse Care Teams Inspector Advanced Composite Relationship Specialty Start Date End Date Bessy Alcaraz APRN-ARAM [address] [address] PCP - General Nurse Practitioner 12/19/24
--- OUTSIDE RECORDS SUMMARY | 2025-02-10 14:27 | XMS_ITS | Clinical Summary ---
Author Organization [facility] Address [address] [place] [address] Care Team Providers Care Cosmetics And Toiletries Salesperson Name Role Phone Brad Chan MD Primary Care Provider [phone] Allergies No known active allergies Medications escitalopram [...] Additional history exists Insurance [place] [employer] [facility] [id number] Care Teams Cosmetics And Toiletries Salesperson Relationship Specialty Start Date End Date Brad Chan MD [address] [place] [phone] PCP - General Emergency Medicine 04/10/20
== END 2025-02-10 14:22 | disposition home or self-care (01) ==
LOC: ANHLAB 14:22
PROVIDERS: PCP Nurse Practitioner; Visit Provider Student in an Organized Health Care Education/Training Program
DX: R30.0 Dysuria (principal)
CPT/HCPCS: 87086

== ENCOUNTER 2025-04-18 11:32 | Outpatient (CLI) | payer OTHER, SELFPAY ==
--- OUTSIDE RECORDS SUMMARY | 2025-04-18 11:35 | XMS_ITS | Clinical Summary ---
Author Organization [facility] Address [address] [place] [address] Care Team Providers Care Needle Board Repairer Name Role Phone KieranTerezajoe MOON-AUDIO VIDEO TECH Primary Care Provide r Source Comments [facility],non-owned Affiliates and Associated Physician Practices is amultiple site organization consisting of ambulatory clinics and hospital sitesin [place], [place], [place] and [place]. This disclosure is being madepursuant to the Care Everywhere program and may not contain all information available regarding this patient. Last updated 18.[facility] Allergies Active Allergy Reactions Criticality Noted Date Comments Etonogestrel-Ethinyl Estradiol Swelling High 04/05 Latex Other High 04/05/2024 Medications * Be aware that medications may not be up to date on this document. Alwaysverify current medications with the patient. clindamycin (Cleocin) 1 % lotionIndicatio ns:Acne vulgaris Apply to affected area on face daily. 30 day supply. 60 mL 11 03/13/2025 Active azelaic acid (Finacea) 15 % gelIndications: Acne vulgaris Apply to face daily. 30 days supply. 30 g 11 03/13/2025 Active Active Problems Problem Noted Date Diagnosed Date Edema 03/14/2025 Acne vulgaris 03/14/2025 Posttraumatic stress disorder 02/02/2022 Temporomandibular joint (TMJ) pain 08/14/2020 Iron deficiency 03/24/2020 Overview (03/14/2025): nml b`12 Influenza due to unidentifie d influenza virus with other respiratory manifestations 03/23/2020 Encounters Date Type Department Care Team Description 03/26/2025 3:19 PM CDT - 03/26/2025 11:59 PM CDT Hospital Encounter [facility] - Ul[facility]ound [address] [place] [address] Discharge Disposition: Home or Self Care 03/13/2025 2:40 PM CDT Office Visit [facility] - Dermatology [address] [place] [phone] Stephane Gupta MD Acne vulgaris (Primary Dx); Multiple benign melanocytic nevi of both upper extremities, both lower extremities, and trunk; Dermatofibroma of right thigh 03/13/2025 Travel from Last 3 Months Immunizations Immunization [...] on file Legal Sex Female 5:38 AM GANG SUPERVISOR PIPE LINES Gender Identity Not on file Sexual Orientation Not on file Last Filed Vital Signs Vital Sign Reading Time Taken Comments Blood Pressure 127/78 08/14/2020 3:19 PM GANG SUPERVISOR PIPE LINES Pulse 82 08/14/2020 3:19 PM GANG SUPERVISOR PIPE LINES Temperature 37 C (98.6 F) 08/14/2020 3:19 PM GANG SUPERVISOR PIPE LINES Respiratory Rate 16 08/14/2020 3:19 PM GANG SUPERVISOR PIPE LINES Oxygen Saturation - - Inhaled Oxygen Concentration - - Weight 87.1 kg (192 lb) 08/14/2020 3:19 PM GANG SUPERVISOR PIPE LINES Height 157.5 cm (5' 2) 08/14/2020 3:19 PM GANG SUPERVISOR PIPE LINES Body Mass Index 35.12 08/14/2020 3:19 PM GANG SUPERVISOR PIPE LINES Plan of Treatment Upcoming Encounters Date Type Department Care Team (Late st Contact Info) Description 11/20/2025 1:00 PM CDT Office Visit [facility] - Dermatology [address] [place] [phone] Stephane Gupta MD [address] [place] [address] DEPT OF DERMATOLOGY [address] [place] [phone] Health Maintenance Due Date Last Done Comments HIV SCREENING 12/12/2011 DTAP/TDAP/TD VACCINES (1 - Tdap) 12/12/2015 HEPATITIS B VACCINE (1 of 3 - 19+ 3-dose series) 12/12/2015 PAP SMEAR 2017 HPV VACCINE (1 - 3-dose SCDM series) 12/12/2023 DEPRESSION SCREENING 07/24/2024 COVID-19 VACCINE (3 - season) 2025 12/26/2020, 12/05/2020 INFLUENZA VACCINE (#1) 2025 , 05/22/2023, 05/18/2022, Additional history exists ZOSTER VACCINE (1 of 2) 2046 HEPATITIS C SCREENING Completed 03/29/2022 HIB VACCINE Aged Out No longer eligi ble based on patient's age to complete this topic MENINGOCOCCAL (Group B) VACCINE SHARED DECISION-MAKING Aged Out No longer eligible based on patient's age to complete this topic MENINGOCOCCAL GROUPS A/C/Y/W VACCINE Aged Out No longer eligible based on patient's age to complete this topic PNEUMOCOCCAL VACCINE Aged Out No long er eligible based on patient's age to complete this topic Procedures Procedure Name Priority Date/Time Associated Diagnosis Comments US OB LESS THAN 14 WEEKS Routine 03/26/2025 3:48 PM CDT Bleeding in early (HCC) from Last 3 Months Results * US OB Less Than 14 Weeks (03/26/2025 3:48 PM CDT) Anatomical Region Laterality Modality Abdomen Ultrasound 03/26/2025 4:06 PM CDT Impressions 03/26/2025 4:10 PM CDT IMPRESSION: Single intrauterine gestation with an estimated gestational age of 14 weeks 2 days with positive heart motion. No other suspected acute abnormality identified. > Interpreting Provider: Paddy Leal MD on 03/26/2025 4:10 PM Narrative 03/26/2025 4:10 PM CDT PROCEDURE: US OB LESS THAN 14 WEEKS, DATE/TIME OF EXAM: 03/26/2025 3:49 PM, LOCATION [facility] INDICATION: O20.9: Bleeding in early (HCC) ADDITIONAL CLINICAL INFORMATION: Ordering Provider Reason For Exam: Technologist Note: Additional: ULTRASOUND PELVIS/OB INCLUDING TRANSVAGINAL EVALUATION: History: (no hCG available; EGA 14 weeks 3 days based on the LMP of 12/15/2024); vaginal bleeding in early . Evaluation of status. Technique: Transabdominal and transvaginal ultrasound of the pelvis/OB was performed on 03/26/2025. Spectral waveform and duplex evaluation of the ovaries was also performed. No relevant prior study is available. Findings: There is a single intrauterine gestation with an estimated gestational age of 14 weeks 2 days. This is consistent with the expected gestational age of 14 weeks 3 days based on the LMP. heart motion is identified with a heart rate of 144 beats per minute. There is no fluid collection identified to suggest a subchorionic hemorrhage and/or hematoma. The uterus is otherwise unremarkable with no focal myometrial mass. The ovaries are obscured with no abnormal extrauterine mass or focal fluid collection seen to suggest an associated ectopic gestation. Procedure Note Paddy Leal MD - 03/26/2025 PROCEDURE: US OB LESS THAN 14 WEEKS, DATE/TIME OF EXAM: 03/26/2025 3:49PM, LOCATION [facility] INDICATION: O20.9: Bleeding in early (HCC) ADDITIONAL CLINICAL INFORMATION: Ordering Provider Reason For Exam: Technologist Note: Additional: ULTRASOUND PELVIS/OB INCLUDING TRANSVAGINAL EVALUATION: History: (no hCG available; EGA 14 weeks 3 days based on theLMP of 12/15/2024); vaginal bleeding in early . Evaluation ofpregnancy status. Technique: Transabdominal and transvaginal ultrasound of the pelvis/OBwas performed on 03/26/2025. Spectral waveform and duplex evaluation of the ovaries was also performed. No relevant prior study is available. Findings: There is a single intrauterine gestation with an estimated gestationalage of 14 weeks 2 days. This is consistent with the expected gestational ageof 14 weeks 3 days based on the LMP. heart motion is identified witha heart rate of 144 beats per minute. There is no fluid collectionidentified to suggest a subchorionic hemorrhage and/or hematoma. The uterus is otherwise unremarkable with no focal myometrial mass. The ovaries are obscured with no abnormal extrauterine mass or focalfluid collection seen to suggest an associated ectopic gestation. IMPRESSION: Single intrauterine gestation with an estimated gestational age of 14weeks 2 days with positive heart motion. No other suspected acute abnormality identified. > Interpreting Provider: Paddy Leal MD on 03/26/2025 4:10 PM us Sylvester Mcneal MD ORDERABLES Final Result from Last [address] [facility] [place] * Guarantor: Cee Nevarez Account Type Relation to Patient Date of Phone Billing Address Personal/Family Spouse Care Teams Needle Board Repairer Relationship Specialty Start Date End Date Bessy Alcaraz APRN-AUDIO VIDEO TECH [address] [phone] PCP - General Nurse Practitioner 12/19/24
--- OUTSIDE RECORDS SUMMARY | 2025-04-18 11:35 | XMS_ITS | Encounter Summary ---
Author Organization [facility] Address [address] [place] [address] Phone Care Team Providers Care Income Tax Expert Name Role Phone Bessy Alcaarz APRN, ARAM Unavailable + [phone] Bessy Alcaraz APRN, ARAM Primary Care Provid er Molly Csotello APRN, DOLLY OPERATOR Unavailable Encounter Details Date Type Department Care Team (Late st Contact Info) Description 11/12/2020 Telephone [facility] [address] [place] [address] Bessy Alcaraz APRN, DOLLY OPERATOR #[address] [address] Social History Tobacco Use Types [...] 6week appointment Previous providers: Dr. Brad Chan [facility] in [place], [place] Cee Chavez (endo) [facility] in [place] (fertilizer applicator) documented in this encounter Plan of Treatment Upcoming Encounters Date Type Department Care Team (Latest Contact Info) Description 05/23/2025 2:00 PM CDT Outpatient Clinic Visit [facility] [address] [place] [address] Meryl Maurice, GROUND SERVICE EQUIPMENT MECHANIC [address] [place] [address] Discharge Disposition: Discharged to home or Selfcare documented as of this encounter Visit Diagnoses Not on filedocumented in this encounter Additional Health Concerns Infection Onset Date Last Indicated Resolved Time COVID - 19 Confirmed 03/10/2022 03/10/2022 022 12:16 AM CDT C. difficile Rule-Out 10/05/2023 10/05/20232023 12:19 AM CDT Assessment Noted Time PHQ-9 Depression Total Score: 12 021 3:00 PM CDT documented as of this encounter Care Teams Income Tax Expert Relationship Specialty Start Date End Date Bessy Alcaraz APRN, ARAM [address] [phone] PCP - General Advanced Practice Nurse 10/30/20 Bessy Alcaraz APRN, DOLLY OPERATOR #[address] [phone] Nurse Practitioner Advanced Practice Nurse 10/28/20 Molly Costello APRN, DOLLY OPERATOR [address] [place] [address] Nurse Practitioner Advanced Practice Nurse 10/05/23 documented as of this encounter
--- OUTSIDE RECORDS SUMMARY | 2025-04-18 11:35 | XMS_ITS | Encounter Summary ---
Author Organization [facility] Address [address] [place] [address] Phone Care Team Providers Care Building Service Worker Name Role Phone Bessy Alcaraz APRN, ARAM Unavailable + [phone] Bessy Alcaraz APRN, ARAM Primary Care Provid er Molly Costello APRN, MOSS GATHERER Unavailable Encounter Details Date Type Department Care Team (Late st Contact Info) Description 01/16/2024 Lab Requisition [facility] Laboratory Services [address] [place] [address] System, Referring Not In [place] Social History Tobacco Use Types Packs/Day Years Used Date Smoking Tobacco: Never Smokeless Tobacco: Never Alcohol Use Standard Drinks/Week Comments Yes 0 (1 standard drink = 0.6 oz pur e alcohol) Rarely [facility] Utilities Answer Date Recorded In the past 12 months has [employer], gas, oil, or water [employer] threatened to shut off services in your home? No 11/27/2023 Social Connection and Isolation Panel Answer Date Recorded In a typical week, how many times do you talk on the phone with family, friends, or neighbors? Patient declined 11/27/2023 How often do you get togethe r with friends or relatives? Twice a week 11/27/2023 How often do you attend christianity or gnosticist serv ices? Never 11/27/2023 Do you belong to any clubs o r organizations such as christianity groups, unions, fraternal or athletic groups, or [...] Total Score - Questions 1-9 2 11/2023 [facility] - Occupational Stress Questionnaire Answer Date [...] place to sleep or slept in a jail (including now)? No 11/27/2023 Education Answer Date [...] 05/23/2025 2:00 PM CDT Outpatient Clinic Visit [facility] Behavioral Health Services [address] [place] [address] Meryl Maurice, HALL MONITOR [address] [place] [address] Discharge Disposition: Discharged to home or Selfcare documented as of this encounter Goals Goal Patient Goal Type Associated Problems Recent Progress Patient-Stated? Author Behavioral Health Behavioral Health Worsening( 8:55 AM CDT) Yes Agapito Cuenca, KASANDRA Note: I want to cope better with grief and depression over mom and dad's and other issues Goal/Objective: Decrease grieving responses; coping with sorrow and low moods. Anticipated Time Frame for Goal Completion: 6 months Goal Reviewed with: patient Readiness to change: Ready to change Department associated with goal: [facility] Steps to [...] 3.0 >=1.1 AI 01/17/2024 10:25 AM CDT [facility] Blood No Phlebotomy Charged / Unknown 01/16/2024 1:55 PM CDT 01/16/2024 3:19 PM CDT Narrative [facility] - 01/17/2024 10:25 AM CDT <= 0.8 Negative. No detectable VZV IgG antibody. 0.9 - 1.0 Equivocal >=1.1 Positive Antibody testing was performed by multiplex flow immunoassay on the OnMy[employer] platform. us Referring Not In System IMMUNOLOGY ORDERABLES Fi nal Result [facility] [address] [place] [address], * RUBEOLA (MEASLES) IGG (01/16/2024 1:55 PM CDT) MEASLES AB IGG 2.7 >=1.1 AI 01/17/2024 10:25 AM CDT [facility] Blood No Phlebotomy Charged / Unknown 01/16/2024 1:55 PM CDT 01/16/2024 3:19 PM CDT Narrative [facility] - 01/17/2024 10:25 AM CDT <= 0.8 Negative. No detectable Measles IgG antibody. 0.9 - 1.0 Equivocal >=1.1 Positive Antibody testing was performed by multiplex flow immunoassay on the BioPlex platform. us Referring Not In System IMMUNOLOGY ORDERABLES Fi nal Result [facility] [address] [place] [address], [place] * RUBELLA IMMUNITY IGG (01/16/2024 1:55 PM CDT) RUBELLA IMMUNITY Immune Immune, Invalid 01/17/2024 10:25 AM CDT [facility] Blood No Phlebotomy Charged / Unknown 01/16/2024 1:55 PM CDT 01/16/2024 3:19 PM CDT Narrative [facility] - 01/17/2024 10:25 AM CDT Antibody testing was performed by multiplex flow immunoassay on the BioPlex platform. us Referring Not In System CHEMISTRY ORDERABLES Fin al Result [facility] [address] [place] [address], [place] * MUMPS IGG (01/16/2024 1:55 PM CDT) Mumps Ab IgG 2.9 >=1.1 AI 01/17/2024 10:25 AM CDT [facility] Blood No Phlebotomy Charged / Unknown 01/16/2024 1:55 PM CDT 01/16/2024 3:19 PM CDT Narrative [facility] - 01/17/2024 10:25 AM CDT <= 0.8 Negative. No detectable Mumps IgG antibody. 0.9 - 1.0 Equivocal >=1.1 Positive Antibody testing was performed by multiplex flow immunoassay on the OnMyBlock platform. us Referring Not In System IMMUNOLOGY ORDERABLES Fi nal Result [facility] [address] [place] [address], * QUANTIFERON-TB GOLD PLUS (01/16/2024 1:55 PM CDT) NIL CONTROL 0.00 <8.01 IU/mL 01/18/2024 9:51 AM CDT [facility] TB ANTIGEN 1 0.00 <0.35 IU/mL 01/18/2024 9:51 AM CDT [facility] TB ANTIGEN 2 0.01 <0.35 IU/mL 01/18/2024 9:51 AM CDT [facility] MITOGEN CONTROL 10.00 >0.49 IU/mL 01/18/20 9:51 AM CDT [facility] INTEPRETATION TB NEGATIVE NEGATIVE, NEGATIVE (TB antigen response less than 25% of internal negative control value) 01/18/2024 9:51 AM CDT [facility] Comment:No immune response t o Mycobacterium tuberculosis antigens was noted. M. tuberculosis infection unlikely. Blood No Phlebotomy Charged / Unknown 01/16/2024 1:55 PM CDT 01/16/2024 3:19 PM CDT Narrative [facility] - 01/18/2024 9:51 AM CDT A POSITIVE [...] ORDERABLES Fi nal Result Performing Organization Address [facility] Co de Phone Number [facility] [address] [place] [address], * HEPATITIS B SURFACE ANTIBODY (HBSAB) (01/16/2024 1:55 PM CDT) HEPATITIS B SURFACE ANTIBODY <8.00 mIU/mL 01/16/2024 11:32 PM CDT [facility] Comment:Individual is consid ered not immune to HBV infection. Blood No Phlebotomy Charged / Unknown 01/16/2024 1:55 PM CDT 01/16/2024 3:19 PM CDT us Referring Not In System CHEMISTRY ORDERABLES Fin al Result [facility] [address] [place] [address], documented in this encounter Visit Diagnoses Not on filedocumented in this encounter Additional Health Concerns Assessment Noted Time PHQ-9 Depression Total Score: 2 09/26/19 24 1:[address] documented as of this encounter Care Teams Building Service Worker Relationship Specialty Start Date End Date Bessy Alcaraz APRN, ARAM [address] [address] PCP - General Advanced Practice Nurse 10/30/20 Bessy Alcaraz APRN, ARAM [address] [address] Nurse Practitioner Advanced Practice Nurse 10/28/20 Molly Costello APRN, MOSS GATHERER [address] [place] [address] Nurse Practitioner Advanced Practice Nurse 10/05/23 documented as of this encounter
--- OUTSIDE RECORDS SUMMARY | 2025-04-18 11:35 | XMS_ITS | Clinical Summary ---
Author Organization [facility] selina [facility] Address [address] [place] [address] Care Team Providers Care Child Care Provider Name Role Phone Brad Chan MD Primary Care Provider [phone] Allergies No known active allergies Medications escitalopram [...] 2017 PAP SMEAR 2017 INFLUENZA VACCINE (#1) 2025 3, 05/18/2022, 05/17/2019 COVID-19 Vaccine (2024-2 6 season) 2025 12/26/2020, 12/05/2020 DTAP/TDAP/TD VACCINES (5 - T d or Tdap) 11/01/2032 11/01/2022, 06/24/1997, 04/17/1997, Additional history exists HEPATITIS B VACCINES Completed 06/24/1997, 02/11/1997, 1996 HPV VACCINES Completed 07/04/2019, 08/0 11/2018, 09/21/2018, Additional history exists Insurance [employer] [place] [facility] [id number] Care Teams Child Care Provider Relationship Specialty Start Date End Date Brad Chan MD [address] [place] [id number] PCP - General Emergency Medicine 04/10/20
--- OUTSIDE RECORDS SUMMARY | 2025-04-18 11:35 | XMS_ITS | Clinical Summary ---
Author Organization [facility] Address [address] [address] Phone Care Team Providers Care Porter Sample Case Name Role Phone Bessy Alcaraz APRN, ARAM Unavailable [phone] Bessy Alcaraz APRN, CNP Primary Care Provid er Molly Costello APRN, ARAM Unavailable Allergies Active Allergy Reactions Criticality Noted Date Comments Etonogestrel-Ethinyl Estradiol Swelling High 04/05 Latex Other (see Comments) High 04/05/2024 Medications buPROPion (Wellbutrin XL) 300 MG TABLET SR 24 HR XL tabletIndications: MDD (major depressive disorder), recurrent episode, moderate,Anxiety Take 1 Tablet by mouth every morning. [...] Encounters Date Type Department Care Team Description 03/14/2025 8:45 AM CDT Outpatient Clinic Visit [facility] Behavioral Health Services [address] [place] [address] Meryl Maurice, ENVIRONMENTAL STUDIES FACULTY MEMBER Post traumatic stress disorder (PTSD) (Primary Dx); Grief reaction; ADHD (attention deficit hyperactivity disorder), combined type Discharge Disposition: Discharged to home or Selfcare 03/14/2025 Travel from Last 3 Months Immunizations Immunization Administration Dates Next Due Covid-19, Mrna, Lnp-s, Pf, 3 0 Mcg/0.3 Ml Dose (Xings[employer]ai Teach) 12/26/2020,12/05/2020 DTP-Hib 06/24/1997,04/17/1997,02/11/1997 Hepatitis A, Pediatric, Unsp [...] = 0.6 oz pur e alcohol) Rarely [facility] Utilities Answer Date Recorded In the past 12 months has e [employer], gas, oil, or water [employer] threatened to shut off services in your home? No 06/03/2024 Social Connection and Isolation Panel Answer Date Recorded In a typical week, how many times do you talk on the phone with family, friends, or neighbors? Patient declined 06/03/2024 How often do you get togethe r with friends or relatives? Patient declined 06/03/2024 How often do you attend samaritan or mandaeism serv ices? Patient declined 06/03/2024 Do you belong to any clubs o r organizations such as samaritan groups, unions, fraternal or athletic groups, or [...] Total Score - Questions 1-9 15 09/21 [facility] - Occupational Stress Questionnaire Answer Date [...] place to sleep or slept in a long term (including now)? No 11/27/2023 Housing Stability Vital [...] were you homeless or living in a long term (including now)? No 06/03/2024 Education Answer Date [...] 05/23/2025 2:00 PM CDT Outpatient Clinic Visit [facility] Behavioral Health Services [address] [place] [address] Meryl Maurice, ENVIRONMENTAL STUDIES FACULTY MEMBER [address] [place] [address] Discharge Disposition: Discharged to home or Selfcare Health Maintenance Due Date Last Done Comments Pap Smear 2017 Influenza Immunization (#1) 03/24/202504/23, 05/22/2023, 05/18/2022, Additional history exists SARS-COV-2 Immunization ( season) 2025 07/20/2021, 12/26/2020, 12/05/2020 DTaP/Tdap/Td Immunization (5 - [...] Worsening( 8:55 AM CDT) Yes Agapito Cuenca, ENVIRONMENTAL STUDIES FACULTY MEMBER Note: I want to cope better with grief and depression over mom and dad's and other issues Goal/Objective: Decrease grieving responses; coping with sorrow and low moods. Anticipated Time Frame for Goal Completion: 6 months Goal Reviewed with: patient Readiness to change: Ready to change Department associated with goal: [facility] Steps to [...] moods and emotions better. Behavioral Health Improving( 8:55 AM CDT) Yes Meryl Maurice ENVIRONMENTAL STUDIES FACULTY MEMBER Note: Goal/Objective: Improve coping strategies for regulating mood and emotions. Anticipated Time Frame for Goal Completion: 6 months Goal Reviewed with: patient Readiness to change: Ready to change Department associated with goal: [facility] Steps to [...] Name Priority Date/Time Associated Diagnosis Comments US - PHYSICIAN OFFICE NURSE 02/05/2025 12:00 AM CDT HEPATITIS C ANTIBODY Routine 03/29/2022 1:42 PM CDT Exposure to blood or body fluid from Last 3 Months or Most Recently Relevant to Health Maintenance Results * US - PHYSICIAN OFFICE NURSE (02/05/2025 12:00 AM CDT) 02/05/2025 us Provider Scan IMG US ORDERABLES Final Result SCAN * HEPATITIS C ANTIBODY (03/29/2022 1:42 PM CDT) hepatitis C antibody 0.09 <1 S/[facility] [id number] B 03/29/2022 9:36 PM CDT [facility] Comment: Signal/Cutoff ratio < 0.79 is Nondetected [...] 03/29/2022 2:37 PM CDT Bessy Alcaraz APRN, ADDRESSOGRAPH OPERATOR CHEMISTRY ORDERABLES Final Result [facility] [address] [place] [address], [place] from Last 3 Months or Most Recently Relevant to Health Maintenance Insurance [facility] * Guarantor: [facility] Account Type Relation to Patient Date of Phone Billing Address Institutional Other [address] [place] [address] Care Teams Porter Sample Case Relationship Specialty Start Date End Date Bessy Alcaraz APRN, ARAM [address] [address] PCP - General Advanced Practice Nurse 10/30/20 Bessy Alcaraz APRN, ADDRESSOGRAPH OPERATOR #[address] [address] Nurse Practitioner Advanced Practice Nurse 10/28/20 Molly Costello APRN, ADDRESSOGRAPH OPERATOR [address] [place] [address] Nurse Practitioner Advanced Practice Nurse 10/05/23
--- OUTSIDE RECORDS SUMMARY | 2025-04-18 11:35 | XMS_ITS | Clinical Summary ---
Author Organization 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 Encounter for preconception consultation Assessment & Plan (01/06/2025 7:47 AM CDT): [...] starting at 12 weeks gestation until delivery Estimated Date of Delivery Comme nts Yes 09/21/2025 Encounters Date Type Department Care Team Description 04/07/2025 Results Follow-Up [facility] [address] [place] [address] Tracy Wilson NP Urine culture Urine, bladder 04/05/2025 5:06 PM CDT - 04/05/2025 11:59 PM CDT Hospital Encounter [address] [address] Urinary tract infection symptoms; Acute cystitis with hematuria Discharge Disposition: Discharge to home or self care 04/05/2025 9:30 AM CDT Office Visit [facility] [place] [address] [address] Margareth Kaur NP Urinary tract infection symptoms (Primary Dx); Acute cystitis with hematuria 03/25/2025 [facility] [address] [place] [phone] Miesha Styles MD Transferring Care 02/28/2025 9:37 AM CDT - 02/28/2025 3:29 PM CDT Emergency [facility] Emergency Department [address] [place] [id number] Cervicitis (Primary Dx) Discharge Disposition: Discharge to home or self care from Last 3 Months Immunizations Immunization Administration [...] Date Smoking Tobacco: Never Smokeless Tobacco: Never Personal Safety Answer Date Recorded Have you ever been in or are you currently in a harmful physical or emotional relationship or is someone making you feel afraid or unsafe? 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 Gender Identity Not on file Sexual Orientation Not on file Obstetrics History Para Term AB IAB SAB Ectopic Multiple Livin g Live Births 4 1 1 2 2 1 1 Date Outcome GA Total Labor Labor/2nd/3rd Weight Sex Type Anes PTL Chikis A1 A5 Name Clin 023 Term 37w 0d F Vagina l Livin g Complications:Pre eclampsia 024 SAB 4w0 d Bioche mical 025 SAB Bioche mical Current Last Filed Vital Signs Vital Sign Reading Time Taken Comments Blood Pressure 112/60 04/05/2025 9:37 AM CDT Pulse 66 04/05/2025 9:37 AM CDT Temperature 36.4 C (97.5 F) 04/05/2025 9:37 AM CDT Respiratory Rate 16 04/05/2025 9:37 AM CDT Oxygen Saturation 97% 04/05/2025 9:37 AM CDT Inhaled Oxygen Concentration - - Weight 80.7 kg (178 lb) 04/05/2025 9:37 AM CDT Height 152.4 cm (5') 04/05/2025 9:37 AM CDT Body Mass Index 34.76 04/05/2025 9:37 AM CDT Plan of Treatment Health Maintenance Due Date Last Done Comments Cervical Cancer Screening 1996 Depression Screening 1996 Hepatitis C Screening 1996 Varicella Vaccines (2 of 2 - 2-dose childhood series) 01/26/2009 11/03/2008 Regular Well Visit/Exam 18-64 2014 Covid-19 Vaccine ( season) 2025 07/20/2021, 12/26/2020, 12/05/2020 Influenza Vaccine (#1) 2025 [...] Procedure Name Priority Date/Time Associated Diagnosis Comments URINE CULTURE Routine 04/05/2025 5:06 PM CDT Urinary tract infection symptoms Acute cystitis with hematuria POCT URINALYSIS DIPSTICK Routine 04/05/2025 9:42 AM CDT Urinary tract infection symptoms TRICHOMONAS VAGINALIS PCR Add-On 02/28/2025 3:19 PM CDT N. GONORRHOEAE/C. TRACHOMATIS AMPLIFICATION Add-On 02/28/2025 3:19 PM CDT US OB UNDER 14 WEEKS W ENDOVAGINAL ED 02/28/2025 11:29 AM CDT URINALYSIS, MICROSCOPIC ONLY STAT 02/28/2025 10:05 AM CDT URINALYSIS AND REFLEX TO MICROSCOPIC AND CULTURE STAT 02/28/2025 10:05 AM CDT EGFR STAT 02/28/2025 9:59 AM CDT HCG, BLOOD, QUANTITATIVE STAT 02/28/2025 9:59 AM CDT COMPREHENSIVE METABOLIC PANEL STAT 02/28/2025 9:59 AM CDT B CHECK SAMPLE STAT 02/28/2025 9:59 AM CDT POCT HCG, URINE Routine 02/28/2025 9:50 AM CDT DIFFERENTIAL AUTO STAT 02/28/2025 9:1 5 AM CDT CBC WITH AUTO DIFFERENTIAL STAT 02/28/2025 9:15 AM CDT ABO/RH STAT 02/28/2025 9:07 AM CDT from Last 3 Months Results * Urine culture Urine, bladder (04/05/2025 5:06 PM CDT) Report Final Report: Less than 100,000 colonies/mL (clinically insignificant growth based on current clinical standards) Comment:Testing performed by : [facility], [address] [facility], [place]., [address] Organism (CLINICALLY INSIGNIFICANT GROWTH BABAR Urine, bladder 04/05/2025 5: 06 PM CDT 04/05/2025 8:08 PM CDT Narrative BABAR LYLE - 04/06/2025 9:44 PM CDT Testing performed by [facility] Microbiology Laboratory ([phone]) Margareth Kaur NP LAB MICROBIOLOGY - GENERAL ORDERABLES Final Result Performing Organization Address City/[facility]/ZIP Co de Phone Number BABAR LYLE [address] Department [place] [address] * (ABNORMAL) POCT urinalysis dipstick (04/05/2025 9:42 AM CDT) Color, Urine, POC Yellow Clarity, ur, POC Cloudy(A) Clear Glucose, ur, POC Negative Negative Bilirubin, ur, POC Negative Negative Ketones, ur, POC Negative Negative Specific [place], POC 1.020 1.003 - 1.030 Blood, ur, POC Moderate(A) Negative pH, ur, POC 6.5 5.0 - 8.0 Protein, ur, POC Negative Negative Urobilinogen, urine, POC 0.2 0.2 - 1.0 mg/dL Nitrite, ur, POC Negative Negative Leukocytes, ur, POC Moderate(A) Negative Lot Number [id number] Urine 04/05/2025 9:42 AM CDT Margareth Kaur NP POINT OF CARE TEST ORDERAB LES Final Result * N. gonorrhoeae/C. trachomatis Amplification Urine (02/28/2025 3:19 PM CDT) Pathologist [facility] C. trachomatis Not Detected Not Detected N. gonorrhoeae Not Detected Not Detected BABAR LYLE Comment: Interpretive Data This assay detects Chlamydia trachomatis and Neisseria gonorrhoeae by nucleic acid amplification testing (NAAT). This assay has been cleared by the [place] Food and Drug administration. The performance characteristics of this test have been verified by the [facility]. The performance characteristics of this test have not been evaluated in individuals less than 14 years of age. Current Interpretive Data last revised 2023. Urine (None) 02/28/2025 3:19 PM CDT 02/28/2025 3:31 PM CDT Danette Aguilar NP LAB MICROBIOLOGY - G ENERAL ORDERABLES Final Result BABAR LYLE [address] [place] [address] CH * Trichomonas vaginalis PCR Urine (02/28/2025 3:19 PM CDT) Trichomonas DNA Not Detected Not Detected CH Urine 02/28/2025 3:19 PM CDT 02/28/2025 3:31 PM CDT Narrative BABAR - 02/28/2025 5:04 PM CDT Interpretive Data: This assay detects Trichomonas vaginalis by nucleic acid amplification testing (NAAT). This assay has been cleared by the [place] Food and Drug administration. The performance characteristics of this test have been verified by the [facility] laboratory. Excess blood in specimens may be inhibitory and result in false negative results. The performance of this test has not been evaluated in women or individuals less than 18 years of age. Danette Aguilar NP LAB MICROBIOLOGY - G [facility] ORDERABLES Final Result BABAR LYLE [address] [place] [address] CH * US Ob Under 14 Weeks W Endovaginal (02/28/2025 11:29 AM CDT) Anatomical Region Laterality Modality Abdomen N/A Ultrasound 02/28/2025 2:45 PM CDT Impressions 02/28/2025 2:45 PM CDT Single living intrauterine fetus with estimated gestational age of 10 weeks and 6 days. No source identified for vaginal bleeding.. Electronically signed by: Jonn Patterson M.D. Narrative 02/28/2025 2:45 PM CDT EXAMINATION: US OB UNDER 14 WEEKS W ENDOVAGINAL Date: 02/28/2025 10:55 AM History: Vaginal bleeding Technique; transabdominal with transvaginal imaging to improve resolution of the adnexa is obtained with 2-D color Doppler ultrasound imaging with spectral analysis Comparison: None Findings: A single intrauterine fetus is present.. Yolk sac is identified 4.7 mm size. The pole measures 3.82 cm correlating with a gestational age of 10 weeks and 6 days. A moderate amount of amniotic fluid is demonstrated. motion was documented by the robot technician. The heart rate is 152 bpm. The estimated date of confinement is 09/21/2025. Maternal ovaries are not individually identified. Adnexa unremarkable. No cul-de-sac fluid. Procedure Note Jonn Patterson MD - 02/28/2025 EXAMINATION: US OB UNDER 14 WEEKS W ENDOVAGINAL Date: 02/28/2025 10:55 AM History: Vaginal bleeding Technique; transabdominal with transvaginal imaging to improve resolution of the adnexa is obtained with 2-D color Doppler ultrasound imaging with spectral analysis Comparison: None Findings: A single intrauterine fetus is present.. Yolk sac is identified 4.7 mm size. The pole measures 3.82 cm correlating with a gestational age of 10 weeks and 6 days. A moderate amount of amniotic fluid is demonstrated. motion was documented by the robot technician. The heart rate is 152 bpm. The estimated date of confinement is 09/21/2025. Maternal ovaries are not individually identified. Adnexa unremarkable. No cul-de-sac fluid. IMPRESSION: Single living intrauterine fetus with estimated gestational age of 10 weeks and 6 days. No source identified for vaginal bleeding.. Electronically signed by: Jonn Patterson M.D. Danette Aguilar PURCHASING CLERK IMG OB US PROCEDURES Final Result * (ABNORMAL) Urinalysis reflex to microscopic and culture Urine (02/28/2025 10:05 AM CDT) Color, ur Yellow Yellow Clarity, ur Clear Clear [facility]ER CH Specific gravity, ur 1.012 1.003 - 1.030 CERNER CH pH, urine 7.5 [facility]ER CH Comment: Interpretive Data U rine pH is affected by diet, medications, systemic acid-base disturbances, and renal tubular function. pH may affect urinary stone formation. For example, urine pH below 6.0 may help reduce the tendency for calcium phosphate stones and pH greater than 6.0 may reduce the tendency for uric acid stone formation. Source: [facility] Current Interpretive Data was last revised on 2017 Protein, ur ql Negative Negative C[facility] Glucose, ur ql Negative Negative [facility] CH Ketones, ur Negative Negative [facility] CH Bilirubin, ur Negative Negative [facility] CH Blood, ur 1+(A) Negative [facility] Urobilinogen, ur <2.0 <2.0 mg/dL [facility] Nitrite, ur Negative Negative [facility] CH Leukocyte esterase, ur 1+(A) Negative [facility] CH UA reflex comment Reflex to microscopic UA will be performed. [facility] CH Urine 02/28/2025 10:0 5 AM CDT 02/28/2025 10:07 AM CDT Danette Aguilar NP LAB MICROBIOLOGY - G ENERAL ORDERABLES Final Result Performing Organization Address [facility] Co de Phone Number BABAR LYLE [id number] [place] [address] * (ABNORMAL) Urinalysis, microscopic only (02/28/2025 10:05 AM CDT) WBC, ur 0-5 0 - 5 /HPF RBC, ur 3-5(A) 0 - 2 /HPF CERNER Epithelial cells, squamous, ur 1-5 0 - 5 /HPF C[facility] CH Mucous, ur Present(A) [facility] Culture Reflex Comment Reflex conditions for urine culture (WBC >10) not met. [facility] CH Urine 02/28/2025 10:0 5 AM CDT 02/28/2025 10:07 AM CDT Danette Aguilar NP LAB URINE ORDERABLES Final Result Performing Organization Address [facility]/ZIP Co de Phone Number SHIRLEYGERTRUDE LYLE [address] [place] [place] [address] * eGFR (02/28/2025 9:59 AM CDT) eGFR >90 >=60 mL/min/1. 73 m2 Comment: Interpretive Data Reference Interval Normal >/= 90 mL/min/1.73m2 Mildly decreased* 60 - 89 mL/min/1.73m2 Mildly to moderately decreased 45 - 59 mL/min/1.73m2 Moderately to severely decreased 30 - 44 mL/min/1.73m2 Severely decreased 15 - 29 mL/min/1.73m2 Kidney Failure < 15 mL/min/1.73m2 *Relative to young adult level Estimated glomerular filtration rate is determined by the 2020 CKD-EPI equation recommended by the National Kidney Foundation (A Unifying Approach to GFR Estimation: Recommendations of the NKF-ASK Task Force on Reassessing the Inclusion of Race in Diagnosing Kidney Disease, JASN 2020). The CKD-EPI equation should not be used for patients with unstable renal function and has not been validated in children and those over 70. Current interpretive data was last reviewed 2021. Blood 02/28/2025 9:59 AM CDT 02/28/2025 10:02 AM CDT Danette Aguilar NP LAB BLOOD ORDERABLES Final Result Performing Organization Address [facility] Co de Phone Number SHIRLEYGERTRUDE LYLE [address] [place] [address] * Check Sample (02/28/2025 9:59 AM CDT) ABO Rh O Negative CH HCLL OTHER 02/28/2025 9:59 AM CDT 02/28/2025 10:02 AM CDT Zhou Lynn MD LAB BLOOD ORDERABLES Final Res ult Performing Organization Address [facility] Co de Phone Number SHIRLEYGERTRUDE LYLE [address] [place] [address] CH * (ABNORMAL) hCG, blood, quantitative (02/28/2025 9:59 AM CDT) hCG, quant 116,973.0 (H) 0.0 - 5.0 IUnits/L Comment: Interpretive Data Male: < 5 IU/L Non- premenopausal Female: <5 IU/L The Umer hCG Beta Quant assay procedure was used. Results from different manufacturers or methods may not be comparable. Serial testing should be performed using the same method. Interpretive Data was last revised on 2023 Blood 02/28/2025 9:59 AM CDT 02/28/2025 10:02 AM CDT us Danette Aguilar PURCHASING CLERK LAB BLOOD ORDERABLES Final Result CERNER [address] [place] [address] * (ABNORMAL) Comprehensive metabolic panel (02/28/2025 9:59 AM CDT) Sodium 137 135 - 145 mmol/L Potassium, pl 4.0 3.3 - 4.9 mmol/L C[facility]ER CH Chloride 105 97 - 110 mmol/L [facility] CH CO2 21(L) 22 - 32 mmol/L [facility] CH Anion gap 11 2 - 15 mmol/L [facility] CH BUN 5(L) 6 - 25 mg/dL [facility] Creatinine 0.57(L) 0.60 - 1.10 mg/dL [facility] Glucose 92 70 - 199 mg/dL [facility] CH Comment: Interpretive Data Fasting glucose >/= 126 mg/dl is diagnostic for diabetes. Fasting is defined as no caloric intake for at least 8 hours. Fasting glucose between 100 mg/dl to 125 mg/dl is diagnostic of prediabetes. In a patient with classic symptoms of hyperglycemia or hyperglycemic crisis, a random glucose >/= 200 mg/dl is diagnostic for diabetes. In the absence of unequivocal hyperglycemia, results should be confirmed by repeat testing. The classification and Diagnosis of Diabetes Diabetes Care 202; 46: S19-S40. Current interpretive data was last revised 2022. Calcium 9.7 8.5 - 10.3 mg/dL CERNER CH Bilirubin, total 0.2 0.1 - 1.2 mg/dL [facility] CH Protein, pl 7.4 6.5 - 8.5 g/dL [facility] CH Albumin 4.1 3.5 - 5.0 g/dL [facility] CH Alk phos 91 40 - 130 Units/L [facility] CH ALT 17 7 - 45 Units/L [facility] CH AST 12 10 - 45 Units/L [facility]ER CH Blood 02/28/2025 9:59 AM CDT 02/28/2025 10:02 AM CDT Danette Aguilar PURCHASING CLERK LAB BLOOD ORDERABLES Final Result BABAR [address] [place] [address] * (ABNORMAL) POCT hCG, urine (02/28/2025 9:50 AM CDT) HCG, ur, POC Positive(A) Negative Lot Number [id number] QC Backgroud Clear Acceptable QC Control Line Acceptable Urine 02/28/2025 9:50 AM CDT Zhou Lynn MD POINT OF CARE TEST ORDERABLES Final Result * Differential, auto (02/28/2025 9:15 AM CDT) Pathologist [facility] Neutrophil abs 5.29 1.50 - 6.50 K/cumm Imm gran abs 0.04 0.00 - 0.10 K/cumm [facility] Lymphocyte abs 1.56 0.80 - 3.30 K/cumm [facility] Monocyte abs 0.52 0.20 - 0.80 K/cumm [facility] Eosinophil abs 0.26 0.00 - 0.50 K/cumm [facility] Basophil abs 0.04 0.00 - 0.10 K/cumm [facility] Neutrophil pct 68.7 % [facility] Comment: Interpretive Data Percent cell count reference ranges are not reported, since discordance with absolute values may lead to misinterpretation of CBC data. Current Interpretive Data was last revised on 2017. Imm gran pct 0.5 % [facility] Comment: Interpretive Data Percent cell count reference ranges are not reported, since discordance with absolute values may lead to misinterpretation of CBC data. Current Interpretive Data was last revised on 2017. Lymphocyte pct 20.2 % [facility] Comment: Interpretive Data Percent cell count reference ranges are not reported, since discordance with absolute values may lead to misinterpretation of CBC data. Current Interpretive Data was last revised on 2017. Monocyte pct 6.7 % [facility] Comment: Interpretive Data Percent cell count reference ranges are not reported, since discordance with absolute values may lead to misinterpretation of CBC data. Current Interpretive Data was last revised on 2017. Eosinophil pct 3.4 % [facility] Comment: Interpretive Data Percent cell count reference ranges are not reported, since discordance with absolute values may lead to misinterpretation of CBC data. Current Interpretive Data was last revised on 2017. Basophil pct 0.5 % [facility] Comment: Interpretive Data Percent cell count reference ranges are not reported, since discordance with absolute values may lead to misinterpretation of CBC data. Current Interpretive Data was last revised on 2017. Blood 02/28/2025 9:15 AM CDT 02/28/2025 9:15 AM CDT us Zhou Lynn MD LAB BLOOD ORDERABLES Final Res ult [facility] [address] [place] [address] * CBC with auto differential (02/28/2025 9:15 AM CDT) WBC 7.71 3.80 - 9.90 K/cumm Hgb 13.2 11.9 - 15.5 g/dL [facility] Hct 39.0 35.6 - 45.5 % [facility] Plt 250 150 - 400 K/cumm [facility] Comment:No clot detected in sample. MPV 11.7 9.1 - 12.3 fL [facility] RBC 4.25 3.90 - 5.20 M/cumm [facility] MCV 91.8 81.3 - 96.4 fL [facility] MCH 31.1 27.1 - 33.3 pg [facility] MCHC 33.8 32.3 - 35.7 g/dL [facility] RDW CV 13.1 11.1 - 14.9 % [facility] RDW SD 43.7 35.7 - 48.1 fL [facility] NRBC abs 0.00 0.00 - 0.01 K/cumm BABAR Morphologic Screen Results confirmed by manual morphology review. BABAR Blood Venous blood specimen / Unknown 02/28/2025 9:15 AM CDT 02/28/2025 9:15 AM CDT Zhou Lynn MD LAB BLOOD ORDERABLES Final Res ult Performing Organization Address [facility] Co de Phone Number BABAR LYLE [address] [place] [address] * ABO/Rh (02/28/2025 9:07 AM CDT) ABO Rh O Negative Blood 02/28/2025 9:07 AM CDT 02/28/2025 9:16 AM CDT Zhou Lynn MD LAB BLOOD BANK TEST ORDERABLES Final Result Performing Organization Address [facility] de Phone Number BABAR LYLE [address] [place] [address] from Last 3 Months Insurance [facility] CHO[facility] PLUS [facility] CHO[facility] PLUS Care Teams Plate Sensitizer Relationship Specialty Start Date End Date Bessy Alcaraz NP [address] [address] PCP - General Nurse Practitioner 09/19/22 Referring, MD Haylie 09/19/22
[2025-04-18 12:34] LABS: Alanine Aminotransferase 14 U/L (6-35); Albumin Level 3.6 g/dL (3.5-5.1); Alkaline Phosphatase 85 U/L (38-126); Amylase 82 U/L (30-110); Anion Gap 10 mmol/L (4-12); Aspartate Amino Transferase 17 U/L (14-36); Bilirubin,Total 0.2 mg/dL (0.2-1.3); Blood Urea Nitrogen 8 mg/dL (7-17); Calcium 8.6 mg/dL (8.4-10.2); Carbon Dioxide 19 mmol/L (22-30); Chloride 105 mmol/L (98-107); Estimated Glomerular Filt Rate > 60; Glucose 84 mg/dL (65-110); Lipase 64 U/L (23-300); Potassium 4.0 mmol/L (3.4-5.0); Sodium 134 mmol/L (137-145); Total Protein 6.8 g/dL (6.3-8.2)
[2025-04-21 19:08] LABS: Total Bile Acids 3.4 umol/L (.)
== END 2025-04-18 11:33 | disposition home or self-care (01) ==
LOC: ANHLAB 11:33
PROVIDERS: PCP Nurse Practitioner; Visit Provider Obstetrics & Gynecology
DX: R10.84 Generalized abdominal pain (principal)
CPT/HCPCS: 36415; 80053; 82150; 82542; 83690

== ENCOUNTER 2025-05-02 15:22 | Outpatient (CLI) | payer OTHER, SELFPAY ==
--- NOTE | ~2025-05-02 | US_ITS ---
EXAMINATION: US OB /maternal detail DATE: 05/02/2025 16:17 INDICATION: Encounter for supervision of normal . TECHNIQUE: Real-time ultrasound of the pelvis was performed. COMPARISON: Ultrasound 01/24/2025 FINDINGS: There is a single living fetus in vertex presentation. The placenta is posterior, 5.7 cm from the cervix. The cervical length is 3.1 cm on transabdominal images, which is normal. heart rate is 148 beats per minute (bpm). The amniotic fluid volume is subjectively normal. The following biometric data were obtained: Biparietal diameter (BPD): 4.6 cm; head circumference (HC): 17.4 cm; abdominal circumference (AC): 14.0 cm; femur length (FL): 3.3 cm. These measurements are concordant. Estimated weight is 320 g +/- 48 g, which correlates with the 56th percentile when 09/21/25 is used as estimated date of delivery. As single measurements, these parameters are each equal to the following estimated gestational ages: BPD: 20 weeks 0 days. HC: 20 weeks 0 days. AC: 19 weeks 3 days. FL: 20 weeks 3 days. estimated gestational age based solely on measurements from this exam is 20 weeks 0 days +/- 1 weeks 3 days. The cerebral ventricles, cerebellum, cisterna magna, nuchal fold, and spine are normal. The heart is normal. The diaphragm, stomach, kidneys, and bladder are normal. There are two umbilical arteries to yield a 3-vessel cord. The cord insertion is normal. IMPRESSION: 1. Single living fetus in vertex presentation. 2. Estimated weight is 320 g +/- 48 g, which correlates with the 56th percentile when 09/21/25 is used as estimated date of delivery. This date was set by ultrasound on 01/24/2025. 3. Normal anatomic survey. Reviewed, dictated and finalized at location E. IMPRESSION: 1. Single living fetus in vertex presentation. 2. Estimated weight is 320 g +/- 48 g, which correlates with the 56th pe rcentile when 09/21/25 is used as estimated date of delivery. This date was set b y ultrasound on 01/24/2025. 3. Normal anatomic survey.
== END 2025-05-02 15:23 | disposition home or self-care (01) ==
LOC: MICIMG 15:26
PROVIDERS: PCP Nurse Practitioner; Visit Provider Obstetrics & Gynecology
DX: Z34.92 Encounter for supervision of normal pregnancy, unspecified, second trimester (principal); Z3A.20 20 weeks gestation of pregnancy
CPT/HCPCS: 76805

== ENCOUNTER 2025-06-21 11:13 | Emergency (ER) | payer OTHER, SELFPAY ==
[2025-06-21 11:36] VITALS: BP 134/73; PULSE 84; RESP 18; O2SAT 98
[2025-06-21 11:37] VITALS: O2SAT 98
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
--- OUTSIDE RECORDS SUMMARY | 2025-06-21 11:56 | XMS_ITS | Clinical Summary ---
Author Organization [facility] Address [address] [place] [phone] Care Team Providers Care Loader Helper Name Role Phone Bessy Alcaraz NP Primary Care Provider + Referring, Unknown MD Unavailable Unavailabl e Allergies Active Allergy Reactions Criticality Noted Date Comments Etonogestrel-Ethinyl Estradiol Swelling High 04/05 Latex Other (See comments) High 04/05/2024 Tioconazole Swelling Medium 05/23/2025 Medications buPROPion XL (WELLBUTRIN XL) 150 mg 24 hr tablet Take 1 tablet (150 mg total) by mouth daily Active metoclopramide (REGLAN) 10 mg tablet Take 1 tablet (10 mg total) by mouth every 6 (six) hours as needed (headache) 45 tablet 3 Active Additional Information Patient not taking.Reported on 06/18/2025 vit no.[id number] c 28 mg iron- 800 mcg tablet Take by mouth Active albuterol HFA (PROVENTIL HFA,VENTOLIN HFA,PROAIR HFA) 90 mcg/actuation inhalerIndicatio ns:Viral upper respiratory tract infection with cough Inhale 2 puffs every 6 (six) hours as needed for wheezing 1 each 5 Active Active Problems Problem Noted Date Diagnosed Date Anxiety and depression 05/05/2025 Overview (05/05/2025): Discontinued Wellbutrin in 2024. 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 Assessment & Plan (01/06/2025 7:48 AM CDT): [...] stimulants do not affect nursing infants adversely. History of pre-eclampsia in prior , currently 01/06/2025 Overview (05/05/2025): First delivery 2022, severe features. Baseline labs 01/24/25: Cr 0.67, AST 12, ALT 16. Plt 300. ASA 81 mg daily. Assessment & Plan (01/06/2025 7:49 AM CDT): [...] Date of Delivery Comme nts Yes 09/21/2025 Based on Ultraso und Encounters Date Type Department Care Team Description 06/18/2025 3:15 PM SKIRT CLIPPER Office Visit [facility] [address] [place] [address] Tracy Wilson, LUDA Viral upper respiratory tract infection with cough (Primary Dx) 06/18/2025 Telephone [facility] [address] [place] [address] Miesha Styles MD Patient issue/concern 05/23/2025 3:40 PM CDT Office Visit [facility] [address] [place] [address] Miesha Styles MD care, subsequent , second trimester (Primary Dx) 05/09/2025 8:20 AM CDT Lab [facility] [address] [place] [address] Dysuria 05/09/2025 Results Follow-Up [facility] [address] [place] [address] Miesha Styles MD Urinalysis reflex to microscopic and culture Urine, clean voided, Urinalysis, microscopic only, Urine culture Urine, clean voided 05/09/2025 Orders Only [facility] [address] [place] [address] Sylvester Mcneal MD 05/08/2025 Telephone [facility] [address] [place] [address] Miesha Styles MD UTI 05/02/2025 1:10 PM CDT Office Visit [facility] [address] [place] [address] Miesha Styles MD care, subsequent , second trimester (Primary Dx) 04/07/2025 Results Follow-Up [facility] at [address] [place] [address] Tracy Wilson NP Urine culture Urine, bladder 04/05/2025 5:06 PM CDT - 04/05/2025 11:59 PM CDT Hospital Encounter [address] [address] Urinary tract infection symptoms; Acute cystitis with hematuria Discharge Disposition: Discharge to home or self care 04/05/2025 9:30 AM CDT Office Visit [facility] [place] [address] [place] [address] Margareth Kaur NP Urinary tract infection symptoms (Primary Dx); Acute cystitis with hematuria 03/25/[address] [facility] [address] [place] [address] Miesha Styles MD Transferring Care from Last 3 Months Immunizations Immunization Administration Dates Next Due DTP / HiB 06/24/1997,04/17/1997,02/11/1997 HPV9 07/04/2019, 9,09/21/2018,02/11 Hep A, Ped Unspecified 11/03/2008 Hep B, Adolescent or Pediatric 06/24/1997,1996,1996 Influenza, Quadrivalent, Spl it, Preservative Free, Intramuscular 05/22/2023,05/18/2022,05/17/2019 Influenza, Unspecified 04/24/2020 Meningococcal C Conjugate 11/03/2008 Meningococcal MCV4P (Menactra) 04/22/2015 OPV 04/17/1997,02/11/1997 Tdap 11/01/2022 Varicella 11/03/2008 Surgical History Surgery Date Site/Laterality Comments TONSILLECTOMY 07/24/2001 - 07/23/2002 Medical History Medical History Date Comments ADHD (attention deficit hyperactivity disorder) Anxiety and depression Congenital absence of finger, left middle and ring finger Family History Medical History Relation Name Comments Cancer Father head and neck Heart attack Father Heart attack Father's Brother Stroke Father's Brother Breast cancer Father's Sister Diabetes Mother's Sister Hypertension Mother's Sister Breast cancer Other paternal great aunt Relation Name Status Comments Father Father's Brother Father's Sister Mother's Sister Other Social History Tobacco Use Types Packs/Day Years Used Date Smoking Tobacco: Never Smokeless Tobacco: Never Personal Safety Answer Date Recorded Have you ever been in or are you currently in a harmful physical or emotional relationship or is someone making you feel afraid or unsafe? Denies 02/28/2025 Estimated Date of Delivery Comme nts Yes 09/21/2025 Based on Ultraso und Sex and Gender Information Value Date Recorded Sex Assigned at Not on file Legal Sex Female 10:43 AM SKIRT CLIPPER Gender Identity Not on file Sexual Orientation Not on file Occupation Industry Job Start Date Job End Date Not on file Not on file Not on file Not on file Obstetrics History Para Term AB IAB SAB Ectopic Multiple Livin g Live Births 4 1 1 2 2 1 1 Date Outcome GA Total Labor Labor/2nd/3rd Weight Sex Type Anes PTL Chikis A1 A5 Name Clin 023 Term 37w 0d 2.948 kg (6 lb 8 oz) F Vagina l Livin g Complications:Pre eclampsia 024 SAB 4w0 d Bioche mical 025 SAB 6w0 d Bioche mical Current Comments 1. 2022 - pitocin induction for preeclampsia with severe features. Summary Episode Dates Number of Fetuses Estimated Date of Delivery 05/02/2025 - Present (06/21/2025) 09/21/2025 (set by Joaquin Styles MD on 05/02/2025 based on Ultrasound on 02/05/2025) Dating Summary Based On AYLEEN GA Diff Last Menstrual Period (LMP Unknown) Ultrasound on 02/05/2025 09/21/2025 Working GA:7w3d Alternate AYLEEN Entry 09/21/2025 Same Comment:Date entered prior t o episode creation Vitals Pregravid Weight Height TWG (As of 06/21/2025) Pregrav id BMI 152.4 cm (5') Notes Progress Notes - Office Visi t - 05/23/2025 - GA:22w5d 05/23/2025 - 22w5d - Miesha Styles MD -- Headaches - less frequent but last up to 12 hours when having them. No relief with tylenol/benadryl/reglan. Fioricet helps short term. Discussed may take 1-2 tablets PRN. Headache precautions discussed. -- Shortness of breath - has noticed at work maybe once a week, associated with dizziness like the room is spinning. No CP. Lungs - CTAB. Heart - RRR. Precautions discussed. CBC ordered to recheck for anemia. -- Left wrist pain - random. Discussed likely carpal tunnel in . Recommend wrist splint PRN. Progress Notes - Office Visi t - 05/02/2025 - GA:19w5d 05/02/2025 - 19w5d - Miesha Styles MD New OB -- transfer of care from [place]. Records received and reviewed. AYLEEN 09/21 by 7 wk ultrasound, uncertain LMP. Routine care and up to date on lab work. Anatomy ultrasound is scheduled later today in [place]. -- Vaginal bleeding - ultrasounds have been unremarkable. Notes post-coital or straining for a BM. Attributed to cervical ectropion treated with silver nitrate x 2, improved with same. Precautions given. -- Psych - h/o anxiety/depression on Wellbutrin and ADHD on Vyvanse per her PCP. Discontinued both medications at 6 weeks. Discussed risks of poorly controlled maternal mental health v medication side effects. She elects to observe at this time. -- h/o preeclampsia with severe features - previous provider recommended two ASA daily. Discussed potential bleeding risk with higher dose. Recommend 81 mg daily until delivery to prevent recurrence. Notes intermittent RUQ pain x 2 months, maybe 3x/wk. No exacerbating factors. Liver enzymes were normal in January and again in February. No pain to palpation today. Precautions given. -- Headache - rare use of fioricet from previous provider as no significant relief. Maybe 4x/wk. Recommend tylenol/benadryl/reglan. Precautions given. Last Filed Vital Signs Vital Sign Reading Time Taken Comments Blood Pressure 128/76 06/18/2025 3:16 PM SKIRT CLIPPER Pulse 73 06/18/2025 3:16 PM SKIRT CLIPPER Temperature 36.7 C (98.1 F) 06/18/2025 3:16 PM SKIRT CLIPPER Respiratory Rate 16 06/18/2025 3:16 PM SKIRT CLIPPER Oxygen Saturation 98% 06/18/2025 3:16 PM SKIRT CLIPPER Inhaled Oxygen Concentration - - Weight 87.1 kg (192 lb) 06/18/2025 3:16 PM SKIRT CLIPPER Height 152.4 cm (5') 06/18/2025 3:16 PM SKIRT CLIPPER Body Mass Index 37.5 06/18/2025 3:16 PM SKIRT CLIPPER Plan of Treatment Health Maintenance Due Date Last Done Comments Cervical Cancer Screening 1996 Depression Screening 1996 Hepatitis C Screening 1996 Varicella Vaccines (2 of 2 - 2-dose childhood series) 01/26/2009 11/03/2008 Regular Well Visit/Exam 18-64 2014 Covid-19 Vaccine ( - season) 2025 07/20/2021, 12/26/2020, 12/05/2020 Influenza Vaccine [...] Comments POC INFLUENZA A/B, COVID-19 ANTIGEN Routine 06/18/2025 3:44 PM SKIRT CLIPPER Viral upper respiratory tract infection with cough POCT RAPID STREP Routine 06/18/2025 3:33 PM SKIRT CLIPPER Viral upper respiratory tract infection with cough POCT URINE GLUCOSE AND PROTEIN Routine 05/23/2025 3:41 PM CDT care, subsequent , second trimester URINALYSIS, MICROSCOPIC ONLY Routine 05/09/2025 8:18 AM CDT Dysuria URINE CULTURE Routine 05/09/2025 8:18 AM CDT URINALYSIS AND REFLEX TO MICROSCOPIC AND CULTURE Routine 05/09/2025 8:18 AM CDT Dysuria US OB DETAIL ANATOMY SINGLE OR FIRST GESTATION Schedule Routine, Read Routine (OP Routine) 05/02/2025 8:05 AM CDT URINE CULTURE Routine 04/05/2025 5:06 PM CDT Urinary tract infection symptoms Acute cystitis with hematuria POCT URINALYSIS DIPSTICK Routine 04/05/2025 9:42 AM CDT Urinary tract infection symptoms URINE CULTURE Routine 04/05/2025 from Last 3 Months Results * POC Influenza A/B, COVID-19 antigen (06/18/2025 3:44 PM SKIRT CLIPPER) Pathologist [facility] Influenza A Ag, POC Negative Negative [facility] Influenza B Ag, POC Negative Negative [facility] COVID-19 Ag POC Presumptive Negative Presumptive Negative, Invalid [facility] Nasal 06/18/2025 3:44 PM SKIRT CLIPPER Tracy Wilson NP POINT OF CARE TEST ORDERABLES Final Result [facility] [address] [place] [address], [facility] * POCT rapid strep A (06/18/2025 3:33 PM SKIRT CLIPPER) Pathologist [facility] Rapid Strep A, POC Negative Negative Swab 06/18/2025 3:33 PM SKIRT CLIPPER Tracy Wilson NP POINT OF CARE TEST ORDERABLES Final Result * POCT urine glucose and protein (05/23/2025 3:41 PM CDT) Glucose, ur, POC Negative Negative Protein, ur, POC Negative Negative Lot Number [id number] Urine 05/23/2025 3:41 PM CDT us Miesha Styles MD POINT OF CARE TEST OR DERABLES Final Result * (ABNORMAL) Urinalysis reflex to microscopic and culture Urine, clean voided (05/09/2025 8:18 AM CDT) Color, ur Yellow Yellow Comment:Testing performed by : [address] [address] Clarity, ur Clear Clear [facility] Comment:Testing performed by : [address], [address] Specific gravity, ur 1.013 1.003 - 1.030 [facility] Comment:Testing performed by : [address], [address] pH, urine 6.0 [facility] Comment: Interpretive Data U rine pH is affected by diet, medications, systemic acid-base disturbances, and renal tubular function. pH may affect urinary stone formation. For example, urine pH below 6.0 may help reduce the tendency for calcium phosphate stones and pH greater than 6.0 may reduce the tendency for uric acid stone formation. Source: [facility] qunb Current Interpretive Data was last revised on 2017 Testing performed by: [address], [address] Protein, ur ql Negative Negative [facility] Comment:Testing performed by : [address], [address] Glucose, ur ql Negative Negative [facility] Comment:Testing performed by : [address], [address] Ketones, ur Negative Negative [facility] Comment:Testing performed by : [address], [address] Bilirubin, ur Negative Negative [facility] Comment:Testing performed by : [address], [address] Blood, ur Negative Negative [facility] Comment:Testing performed by : [address] [address] Urobilinogen, ur <2.0 <2.0 mg/dL [facility] Comment:Testing performed by : [address], [address] Nitrite, ur Negative Negative [facility] Comment:Testing performed by : [address], [address] Leukocyte esterase, ur 4+(A) Negative [facility] Comment:Testing performed by : [facility] [address] UA reflex comment Reflex to microscopic UA will be performed. [facility] Comment:Testing performed by : [address] [address] Urine, clean voided 05/09/2025 8:18 AM CDT 05/09/2025 12:51 PM CDT Miesha Styles MD LAB MICROBIOLOGY - GE NERAL ORDERABLES Final Result Performing Organization Address [facility] Co de Phone Number BABAR [address] [place] [address] * (ABNORMAL) Urinalysis, microscopic only (05/09/2025 8:18 AM CDT) WBC, ur 11-20(A) 0 - 5 /HPF Comment:Testing performed by : [address], [address] RBC, ur 0-2 0 - 2 /HPF [facility] Comment:Testing performed by : [address] [address] Epithelial cells, squamous, ur 1-5 0 - 5 /HPF [facility] Comment:Testing performed by : [address] [address] Mucous, ur Present(A) [facility] Comment:Testing performed by : [address] [address] Culture Reflex Comment Reflex to urine culture will be performed. [facility] Comment:Testing performed by : [address] [address] Urine, clean voided 05/09/2025 8:18 AM CDT 05/09/2025 12:51 PM CDT Miesha Styles MD LAB URINE ORDERABLES Final Result Performing Organization Address [facility] Co de Phone Number BABAR [address] [place] [address] * Urine culture Urine, clean voided (05/09/2025 8:18 AM CDT) Report Final Report: Growth indicative of contamination with periurethral barber. Please submit a new specimen with special attention given to the collection process and to prompt transport to the laboratory. Comment:Testing performed by : [facility], [address] [place]., [address] Organism GROWTH INDICATES CONTAM WITH PERIURETHRAL BARBER. BABAR Urine, clean voided 05/09/2025 8:18 AM CDT 05/09/2025 4:20 PM CDT Narrative BABAR - 05/11/2025 6:17 AM CDT Urine culture reflexed based upon urinalysis results. Testing performed by [facility] ([phone]) us Miesha Styles MD LAB MICROBIOLOGY - [facility] ORDERABLES Final Result [facility] [address] Department [place] [address] * US Ob Detail Anatomy Single Or First Gestation (05/02/2025 8:05 AM CDT) Anatomical Region Laterality Modality Body N/A Ultrasound us Sylvester Mcneal MD IMG OB US PROCEDURES Final Result * Urine culture Urine, bladder (04/05/2025 5:06 PM CDT) Report Final Report: Less than 100,000 colonies/mL (clinically insignificant growth based on current clinical standards) Comment:Testing performed by : [facility], [address] [place]., [address] Organism (CLINICALLY INSIGNIFICANT GROWTH BABAR Urine, bladder 04/05/2025 5: 06 PM CDT 04/05/2025 8:08 PM CDT Narrative BABAR - 04/06/2025 9:44 PM CDT Testing performed by [facility] ([phone]) us Margareth Kaur NP LAB MICROBIOLOGY - GENERAL ORDERABLES Final Result [facility] [place] [address] Department [place] [address] * (ABNORMAL) POCT urinalysis dipstick (04/05/2025 9:42 AM CDT) Color, Urine, POC Yellow Clarity, ur, POC Cloudy(A) Clear Glucose, ur, POC Negative Negative Bilirubin, ur, POC Negative Negative Ketones, ur, POC Negative Negative Specific [place], POC 1.020 1.003 - 1.030 Blood, ur, POC Moderate(A) Negative pH, ur, POC 6.5 5.0 - 8.0 Protein, ur, POC Negative Negative Urobilinogen, urine, POC 0.2 0.2 - 1.0 mg/dL Nitrite, ur, POC Negative Negative Leukocytes, ur, POC Moderate(A) Negative Lot Number [id number] Urine 04/05/2025 9:42 AM CDT Margareth Kaur NP POINT OF CARE TEST ORDERAB LES Final Result * Urine culture (04/05/2025) SCRIBED Urine culture negative Miesha Styles MD LAB MICROBIOLOGY - GE NERAL ORDERABLES Final Result from Last 3 Months Insurance [facility] CHO[facility] PLUS [facility] PLUS Care Teams Loader Helper Relationship Specialty Start Date End Date Bessy Alcaraz NP [address] [address] PCP - General Nurse Practitioner 09/19/22 Referring, MD Haylie 09/19/22
--- OUTSIDE RECORDS SUMMARY | 2025-06-21 11:56 | XMS_ITS | Clinical Summary ---
Author Organization [facility] [place] [employer] Address [address] [place] [address] Care Team Providers Care Machinist Automotive Name Role Phone KieranTerezajoe MOON-DEPUTY ASSESSOR Primary Care Provide r Source Comments [facility] [place] [facility],non-owned Affiliates and Associated Physician Practices is amultiple site organization consisting of ambulatory clinics and hospital sitesin [place], [place], [place] and [place]. This disclosure is being madepursuant to the Care Everywhere program and may not contain all information available regarding this patient. Last updated 18.[facility] Allergies Active Allergy Reactions Criticality Noted Date [...] - 03/26/2025 11:59 PM CDT Hospital Encounter [facility] Health Imaging Services - Ultrasound [address] [place] [address] Discharge Disposition: Home or Self Care from Last 3 Months Immunizations Immunization [...] on file Legal Sex Female 5:38 AM BOWL TURNER Gender Identity Not on file Sexual Orientation Not on file Last Filed Vital Signs Vital Sign Reading Time Taken Comments Blood Pressure 127/78 08/14/2020 3:19 PM BOWL TURNER Pulse 82 08/14/2020 3:19 PM BOWL TURNER Temperature 37 C (98.6 F) 08/14/2020 3:19 PM BOWL TURNER Respiratory Rate 16 08/14/2020 3:19 PM BOWL TURNER Oxygen Saturation - - Inhaled Oxygen Concentration - - Weight 87.1 kg (192 lb) 08/14/2020 3:19 PM BOWL TURNER Height 157.5 cm (5' 2) 08/14/2020 3:19 PM BOWL TURNER Body Mass Index 35.12 08/14/2020 3:19 PM BOWL TURNER Plan of Treatment Upcoming Encounters Date Type Department Care Team (Late st Contact Info) Description 11/20/2025 1:00 PM CDT Office Visit [facility] - Dermatology [address] [place] [address], [place] [phone] Stephane Gupta MD [address] [place] [address] DEPT OF DERMATOLOGY [address] [place] [phone] Health Maintenance Due Date Last Done Comments HIV SCREENING 12/12/2011 HEPATITIS C SCREENING 12/07/2014 DTAP/TDAP/TD VACCINES (1 - Tdap) 12/12/2015 HEPATITIS B VACCINE (1 of 3 - 19+ 3-dose series) 12/12/2015 PAP SMEAR 2017 HPV VACCINE (1 - 3-dose SCDM series) 12/12/2023 DEPRESSION SCREENING 07/24/2024 COVID-19 VACCINE (2024- season) 2025 12/26/2020, 12/05/2020 INFLUENZA VACCINE (#1) 2025 , 05/22/2023, 05/18/2022, Additional history exists ZOSTER VACCINE (1 of 2) 2046 HIB [...] DATE/TIME OF EXAM: 03/26/2025 3:49 PM, LOCATION [facility] INDICATION: O20.9: Bleeding in early (HCC) ADDITIONAL [...] WEEKS, DATE/TIME OF EXAM: 03/26/2025 3:49PM, LOCATION [facility] INDICATION: O20.9: Bleeding in early (HCC) ADDITIONAL [...] Paddy Leal MD on 03/26/2025 4:10 PM Sylvester Mcneal MD ORDERABLES Final Result from Last 3 Months Insurance MEDICAID - OUT OF STATE [facility] * Guarantor: Cee Nevarez Account Type Relation to Patient Date of Phone Billing Address Personal/Family Spouse Care Teams Machinist Automotive Relationship Specialty Start Date End Date Bessy Alcaraz APRN-ARAM [address] [place], [place] [phone] PCP - General Nurse Practitioner 12/19/24
--- OUTSIDE RECORDS SUMMARY | 2025-06-21 11:56 | XMS_ITS | Encounter Summary ---
Author Organization [facility] Address [address] [place] [address] Phone Care Team Providers Care Front Office Administrator Name Role Phone Bessy Alcaraz APRN, MARKING MACHINE OPERATOR Unavailable + Bessy Alcaraz APRN, MARKING MACHINE OPERATOR Primary Care Prov ider Molly Costello APRN, MARKING MACHINE OPERATOR Unavailable Encounter Details Date Type Department Care Team (Late st Contact Info) Description 11/12/2020 Telephone [facility] [address] [place] [address] Bessy Alcaraz CAR CUSTOMIZER, MARKING MACHINE OPERATOR #[address] [phone] Social History Tobacco Use Types [...] 6week appointment Previous providers: Dr. Brad Chan [facility] in [place], [place] Cee Chavez (endo) [facility] in [place] (freight clerk) documented in this encounter Plan of Treatment Upcoming Encounters Date Type Department Care Team (Latest Contact Info) Description 06/27/2025 2:00 PM MARINE SAFETY OFFICER Outpatient Clinic Visit [facility] [address] [place] [address] Meryl Maurice, COMPANY ACCOUNTANT [address] [place] [address] Discharge Disposition: Discharged to home or Selfcare [...] documented as of this encounter Care Teams Front Office Administrator Relationship Specialty Start Date End Date Bessy Alcaraz, CAR CUSTOMIZER, MARKING MACHINE OPERATOR #[address] [phone] PCP - General Advanced Practice Nurse 10/30/20 Bessy Alcaraz APRN, MARKING MACHINE OPERATOR #[address] [phone] Nurse Practitioner Advanced Practice Nurse 10/28/20 Molly Costello APRN, MARKING MACHINE OPERATOR [address] [place] [address] Nurse Practitioner Advanced Practice Nurse 10/05/23 documented as of this encounter
--- OUTSIDE RECORDS SUMMARY | 2025-06-21 11:56 | XMS_ITS | Clinical Summary ---
Author Organization [facility] Address [address] [facility] [address] Care Team Providers Care Customer Care Voice Consultant Name Role Phone Brad Chan MD Primary Care Provider [phone] Allergies No known active allergies Medications escitalopram [...] Additional history exists Insurance [place] [facility] [id number] Care Teams Customer Care Voice Consultant Relationship Specialty Start Date End Date Brad Chan MD [address] [place] [phone] PCP - General Emergency Medicine 04/10/20
--- OUTSIDE RECORDS SUMMARY | 2025-06-21 11:56 | XMS_ITS | Data Portability ---
Author Organization [facility] Address [address] [place] [address] Care Team Providers Care Cook [employer] And [employer] Name Role Phone YEISON BENAVIDES Primary Care Provider Unavailabl e Assessment No assessment recorded. Plan of Treatment Reminders Order Date Submit Date Provider Last Modified By Organization Details Last Modified Time Details Appointments None recorded. Lab urinalysi s, dipstick 2023 024 In-Office Order, Internal Use Only DO Not Attach Compendium DO Not Attach Compendium, Do Not Delete/merge, [id number] 4 15:56:02 vaginal pathogens panel, SUNNY+probe , vaginal fluid 2023 024 [place] [facility], [address], [place], [address], 4 06:21:36 TSH, ultra-sen sitive, serum 2023 024 [place] [facility], [address] [facility], [place], [address], 4 06:23:36 prolactin , serum 2023 024 [place], [address] [facility], [place], [address], 4 06:23:37 unlisted lab - DHEA-S+17 -ohp+tesd /T 2023 [place] [facility], [address], [place], [address], 4 06:23:35 cytology report, thin prep, smear or scraping, cervical or vaginal 2023 [place] [facility], [address], [place], [address], 4 10:15:32 urinalysi s, dipstick 2020 021 [email or web address] ck1 In-Office Order, Internal Use Only DO Not Attach Compendium DO Not Attach Compendium, Do Not Delete/merge, [id number] 1 09:23:18 test, urine 2019 020 [email or web address] 1 In-Office Order, Internal Use Only DO Not Attach Compendium DO Not Attach Compendium, Do Not Delete/merge, [id number] 0 18:05:35 bacterial vaginosis panel, vaginal 2019 020 [place] [facility] (Centralized Electronic Ordering - All Locations), Patient Can Go To The Location Of Their Choice, [id number] 0 11:57:53 culture, vaginal/r ectal, streptoco ccus group B 2019 020 [place] [facility] (Centralized Electronic Ordering - All Locations), Patient Can Go To The Location Of Their Choice, [id number] 0 11:57:53 Referral None recorded. Procedures None recorded. Surgeries None recorded. Imaging US, pelvis, complete 2023 024 [facility], [address] [facility] , [place], [address], 4 02:58:35 US, pelvis, transabdo lindsey + transvagi nal [address] ([facility] Sched[facility]), [address] [place], [address], 1 14:35:07 Medication Orders multivita min tablet 2019 021 [place] [facility] #[id number], [address], [place], [place], [id number], 1 16:27:43 Calcium with Vitamin D 600 mg-10 mcg (400 unit) tablet 2019 021 [id number] [id number] [facility] #54460, [address], [place], [place], [id number], 1 09:37:29 Kyleena 17.5 mcg/24 hr (up to 5 years) 19.5 mg intrauter ine device 2019 020 [email or web address] [facility] #04257, [address], [place], [place], [id number], 4 14:57:34 RepHresh vaginal gel 2019 020 [facility] #71959, [address] [place], [place], [id number], 0 16:22:19 RepHresh Pro-B 2.5 billion cell capsule 2019 020 [facility] #43049, [address], [place], [place], [id number], 0 16:22:07 Ortho Tri-Cycle n (28) 0.18 mg(7)/0.2 15mg(7)/0 .25 mg(7)-0.0 35 mg tablet 2019 020 [facility] #19933, [address], [place], [place], [id number], 0 16:22:16 Kyleena 17.5 mcg/24 hr (up to 5 years) 19.5 mg intrauter ine device 2019 [email or web address] Not available 4 14:57:34 multivita min tablet 2019 [facility] #31584, [address], [place], [place], [id number], 1 16:27:40 Calcium with Vitamin D 600 mg-10 mcg (400 unit) tablet 2019 [facility] #28576, [address], [place], [place], [id number], 1 16:27:20 escitalop maria eugenia 20 mg tablet 2019 [email or web address], [address], [place], [place], [id number], 0 16:22:33 Patient TargetsNo targets recorded. Patient Instructions Encounter Date Encounter Id Patient Instructions Last Modified By Organization Details Last Modified Time 04/06/2020 [id number] anemia: care instructions joseerman Not available 04/06/2020 15:25:39 Discussed IUD removal and insertion in Aug 2020. [email or web address] Not available 04/06/2020 17:56:56 06/04/2024 [id number] painful urinatio n (dysuria): care instructions tran [...] DO Not Attach Compendium, Do Not Delete/merge, [id number] 07/02/2020 16:38:55 04/06/20 20 04/08/2020 bacte rial vagin osis panel , vagin al trich vag by SUNNY NEGATI VE negati ve Not Available [facility] ([facility]) [address] [place], [address], 04/09/2020 11:57:53 04/06/20 20 04/08/2020 bacte rial vagin osis panel , vagin al hsv 1 SUNNY NEGATI VE negati ve Not Available [facility] ([facility]) [address] [place], [address], 04/09/2020 11:57:53 04/06/2004/08/2020 bacte rial vagin osis panel , vagin al hsv 2 SUNNY NEGATI VE negati ve Not Available [facility] ([facility]) [address] [place], [address], 04/09/2020 11:57:53 04/06/2004/09/2020 bacte rial vagin osis panel , vagin al atopobium vaginae LOW - 0 score Not Available [facility] ([facility]) [address] [place], [address], 04/09/2020 11:57:53 04/06/2004/09/2020 bacte rial vagin osis panel , vagin al bvab 2 LOW - 0 score Not Available [facility] ([facility]) [address] [place], [address], 04/09/2020 11:57:53 04/06/2004/09/2020 bacte rial vagin osis [...] is not neces sujata. Not Available [facility] ([facility]) [address] [place], [address], 04/09/2020 11:57:53 04/06/2004/09/2020 bacte rial vagin osis panel , vagin al samira albicans, SUNNY NEGATI VE negati ve Not Available [facility] ([facility]) [address] [place], [address], 04/09/2020 11:57:53 04/06/2004/09/2020 bacte rial vagin osis panel , vagin al samira glabrata, SUNNY NEGATI VE negati ve Not Available [facility] ([facility]) [address] [place], [address], 04/09/2020 11:57:53 04/06/2004/09/2020 bacte rial vagin osis panel , vagin al chlamydia trachomatis, SUNNY NEGATI VE negati ve Not Available [facility] ([facility]) [address] [place], [address], 04/09/2020 11:57:53 04/06/2004/09/2020 bacte rial vagin osis panel , vagin al neisseria gonorrhoeae, SUNNY NEGATI VE negati ve Not Available [facility] ([facility]) [address] [place], [address], 04/09/2020 11:57:53 04/06/2004/08/2020 cultu re, vagin al/re [...] n is noted . Not Available [facility] ([facility]) [address] [facility], [place], [address], 04/09/2020 11:57:53 06/08/20 21 06/08/2021 urina lysis , dipst ick Leukocytes Trace Not Available In-Offi ce Order Internal Use Only DO Not Attach Compendium DO Not Attach Compendium, Do Not Delete/merge, [id number] 06/08/2021 16:32:46 06/08/20 21 06/08/2021 urina lysis , dipst ick Nitrite negati ve Not Available In-Office Order Internal Use Only DO Not Attach Compendium DO Not Attach Compendium, Do Not Delete/merge, [id number] 06/08/2021 16:32:46 06/08/20 21 06/08/2021 urina lysis , dipst ick Urobilinogen .2 Not Available In-Of fice Order Internal Use Only DO Not Attach Compendium DO Not Attach Compendium, Do Not Delete/merge, [id number] 06/08/2021 16:32:46 06/08/20 21 06/08/2021 urina lysis , dipst ick Protein Negati ve Not Available In-Office Order Internal Use Only DO Not Attach Compendium DO Not Attach Compendium, Do Not Delete/merge, [facility] 06/08/2021 16:32:46 06/08/20 21 06/08/2021 urina lysis , dipst ick pH 5.5 Not Available In-Office Order Internal Use Only DO Not Attach Compendium DO Not Attach Compendium, Do Not Delete/merge, [id number] 06/08/2021 16:32:46 06/08/20 21 06/08/2021 urina lysis , dipst ick Blood Negati ve Not Available In-Office Order Internal Use Only DO Not Attach Compendium DO Not Attach Compendium, Do Not Delete/merge, [facility] 06/08/2021 16:32:46 06/08/20 21 06/08/2021 urina lysis , dipst ick Specific [place] 1.030 Not Available In-Off ice Order Internal Use Only DO Not Attach Compendium DO Not Attach Compendium, Do Not Delete/merge, [id number] 06/08/2021 16:32:46 06/08/20 21 06/08/2021 urina lysis , dipst ick Ketone Negati ve Not Available In-Office Order Internal Use Only DO Not Attach Compendium DO Not Attach Compendium, Do Not Delete/merge, [id number] 06/08/2021 16:32:46 06/08/20 21 06/08/2021 urina lysis , dipst ick Bilirubin Negati ve Not Available In-Office Order Internal Use Only DO Not Attach Compendium DO Not Attach Compendium, Do Not Delete/merge, [id number] 06/08/2021 16:32:46 06/08/20 21 06/08/2021 urina lysis , dipst ick Glucose Negati ve Not Available In-Office Order Internal Use Only DO Not Attach Compendium DO Not Attach Compendium, Do Not Delete/merge, [id number] 06/08/2021 16:32:46 06/04/20 24 06/05/2024 NUSWA B VAGIN ITIS PLUS (VG+) atopobium vaginae LOW - 0 score Not Available [facility] ([facility]) [address] [facility], [place], [address], 06/06/2024 06:21:36 06/04/2006/05/2024 NUSWA B VAGIN ITIS PLUS (VG+) bvab 2 LOW - 0 score Not Available [facility] ([facility]) [address] [facility], [place], [address], 06/06/2024 06:21:36 06/04/20 24 06/05/2024 NUA B [...] prese nce of BV. Not Available [facility] ([facility]) [address] [facility], [place], [address], 06/06/2024 06:21:36 06/04/20 24 06/05/2024 NUSWA B VAGIN ITIS PLUS (VG+) samira albicans, SUNNY NEGATI VE negati ve Not Available [facility] ([facility]) [address] [facility], [place], [address], 06/06/2024 06:21:36 06/04/20 24 06/05/2024 NUSWA B VAGIN ITIS PLUS (VG+) samira glabrata, SUNNY NEGATI VE negati ve Not Available [facility] ([facility]) [address] [facility], [place], [address], 06/06/2024 06:21:36 06/04/20 24 06/06/2024 NUSWA B VAGIN ITIS PLUS (VG+) trich vag by SUNNY NEGATI VE negati ve Not Available [facility] ([facility]) [address] [facility], [place], [address], 06/06/2024 06:21:36 06/04/20 24 06/06/2024 NUSWA B VAGIN ITIS PLUS (VG+) chlamydia trachomatis, SUNNY NEGATI VE negati ve Not Available [facility] ([facility]) [address] [facility], [place], [address], 06/06/2024 06:21:36 06/04/20 24 06/06/2024 NUSWA B VAGIN ITIS PLUS (VG+) neisseria gonorrhoeae, SUNNY NEGATI VE negati ve Not Available [facility] ([facility]) [address] [facility], [place], [address], 06/06/2024 06:21:36 06/04/20 24 06/11/2024 IGP, RFX APTIM A HPV ASCU diagnosis: COMMEN T NEGAT GEOVANNA FOR INTRA EPITH ELIAL LESIO N OR NOAH BURT . Not Available [facility] ([facility]) [address] [facility], [place], [address], 06/11/2024 10:15:32 06/04/20 24 06/11/2024 IGP, RFX APTIM A HPV ASCU specimen adequacy: COMMEN T Satis facto ry for evalu ation . Endoc ervic al and/o r squam ous metap lasti c cells (endo cervi larissa compo nent) are prese nt. Not Available [facility] ([facility]) [address] [facility], [place], [address], 06/11/2024 10:15:32 06/04/20 24 06/11/2024 IGP, RFX APTIM A HPV ASCU clinician provided ICD10: SOLE Dorado Z12.4 R30.0 N93.8 Not Available [facility] ([facility]) [address] [facility], [place], [address], 06/11/2024 10:15:32 06/04/20 24 06/11/2024 IGP, RFX APTIM A HPV ASCU performed by: Keon Donaldson (ASCP ) Not Available [facility] ([facility]) [address] [place], [address], 06/11/2024 10:15:32 06/04/20 24 06/11/2024 IGP, RFX APTIM A HPV ASCU . . Not Available [facility] ([facility]) [address] [facility], [place], [address], 06/11/2024 10:15:32 06/04/20 24 06/11/2024 IGP, RFX [...] ts do occur . Not Available [facility] ([facility]) [address] [place], [address], 06/11/2024 10:15:32 06/04/20 24 06/11/2024 IGP, RFX APTIM A HPV ASCU test methodology: SOLE Dorado This liqui d based ThinP rep(R ) pap test was scree josef with the use of an image guide d systjoe m. Not Available [facility] ([facility]) [address] [place], [address], 06/11/2024 10:15:32 06/04/20 24 06/11/2024 IGP, RFX APTIM A HPV ASCU . COMMEN T The HPV DNA refle x crite day were not met with this speci men resul t there fore, no HPV testi ng was perfo rmed. Not Available [facility] ([facility]) [address] [facility], [place], [address], 06/11/2024 10:15:32 06/04/20 24 06/05/2024 DHEA- S+17- OHP+T ESD/T DHEA-sulfate 334.0 ug/dL 84.8-3 78.0 Not Available [facility] ([facility]) [address] [facility], [place], [address], 06/12/2024 06:23:35 06/04/20 24 06/05/2024 DHEA- S+17- OHP+T ESD/T testosterone 29 NG/dL 13-71 Not Available [facility] ([facility]) [address] [place], [address], 06/12/2024 06:23:35 06/04/20 24 06/09/2024 DHEA- S+17- OHP+T ESD/T free testosterone (direct) 1.5 pg/mL 0.0-4. 2 Not Available [facility] ([facility]) [address] [place], [address], 06/12/2024 06:23:35 06/04/20 24 06/12/2024 DHEA- S+17- OHP+T ESD/T 17-oh progesterone lcms 26 NG/dL Adult Femal e Folli cular 15 - 70 Lutea l 35 - 290 Not Available [facility] ([facility]) [address] [place], [address], 06/12/2024 06:23:35 06/04/20 24 06/05/2024 TSH RFX ON ABNOR MAL TO FREE T4 TSH 1.950 uIU/m L 0.450- 4.500 Not Available [facility] ([facility]) [address] [facility], [place], [address], 06/12/2024 06:23:36 06/04/20 24 06/05/2024 PROLA CTIN prolactin 10.8 NG/mL 4.8-33 .4 Not Available [facility] ([facility]) [address] [facility], [place], [address], 06/12/2024 06:23:37 06/04/20 24 06/04/2024 urina lysis , dipst ick Leukocytes Negati ve Not Available In-Office Order Internal Use Only DO Not Attach Compendium DO Not Attach Compendium, Do Not Delete/merge, [id number] 06/04/2024 15:28:27 06/04/2006/04/2024 urina lysis , dipst [...] 06/04/2024 urina lysis , dipst ick Specific [place] 1.025 Not Available In-Off ice Order Internal [...] compl ete No observ ation record ed. [facility] (Radiology) [address] [place], [address], 07/09/2024 12:20:25 Result Notes None recorded. Problems Name Problem SNOMED Code Status Onset Date Resolution Date Notes Provider Name and Address Organization Details Recorded Time Acute urinary tract infection 557285673 Completed 201806/04/2024 Yeison Benavides MD Attn: Deborah lyon, [facility], [place], [address], [place] [facility] 4 14:48:29 Bacterial vaginosis 191226448 Completed 201806/04/2024 Yeison Benavides MD Attn: Deborah lyon,[address] [place] [address], [place], [address], [place] [facility] 14:48:31 Acute cerviciti s 89381565 Completed 201806/04/2024 Yeison Benavides MD Attn: Deborah lyon,[address] [place] [address], [place], [address], [place] [facility] 4 14:48:26 Irritable bowel syndrome 96517880 Completed 201806/04/2024 Yeison Benavides MD Attn: Deborah lyon,[address] [place] [address], [place], [address], [place] [facility] 4 14:48:36 Depressiv e disorder 10667572 Active 2019 Yeison Benavides MD Attn: Deborah lyon,[address] [facility], [place], [address], [place] [facility] 4 14:48:41 Vaginitis 76418243 Completed 201906/04/2024 Yeison Benavides MD Attn: Deborah lyon,[address] [place] [address], [place], [address], [place] [facility] 4 14:48:46 Acne 85923236 Completed 201906/04/2024 Yeison Benavides MD Attn: Deborah lyon,[address] [place] [address], [place], [address], [place] [facility] 4 14:48:23 Past history of pre-eclam psia 868139334047 100 Active 2023 Yeison Benavides MD Attn: Deborah lyon,[address] [facility], [place], [address], [place] [facility] 4 15:50:51 Inflammat ion of cervix 24138835 Active 2023 Yeison Benavides MD Attn: Deborah lyon,[address] [facility], [place], [address], [place] [facility] 4 16:10:50 Dysuria 68343741 Active 2023 Yeison Benavides MD Attn: Deborah lyon,[address] [facility], [place], [address], [place] [facility] 4 16:10:53 Abnormal uterine bleeding 442539370916 00 Active 2023 Yeison Benavides MD Attn: Deborah lyon,[address] [facility], [place], [address], [place] [facility] 4 16:10:56 Adult health examinati on Active 2023 Yeison Benavides MD Attn: Deborah lyon,[address] [facility], [place], [address], [place] [facility] 4 16:10:58 Problem Notes None recorded. Procedures Surgical History Date Name Laterality Status Provider Name and Address Organization Details Recorded Time 07/02/20 20 IUD Replacement completed KAILEY ROBLES Attn: Accounting,[address] [place], [address], [place] [facility] 07/02/2020 16:36:44 02/23/20 19 Date of Last Pap Smear completed Megan Armendariz [place] 04/06/2020 14:39:16 09/19/19 18 IUD Insertion completed Jose C Caba [place] [facility] 09/19/2017 17:19:35 Tonsillectomy completed Tracy Townsend MA [place] [facility] 01/19/2016 15:07:30 Imaging Results None recorded. Procedure Notes None recorded. Medical Equipment None Reported. Allergies Allergen ID Allergen Name Allergen Category Reaction Reaction Severity Criticality Documentation Date Start Date Code Code System Note Provider Name and Address Organization Details Recorded Time 341902 NuvaRing medicatio n edema severe Not available 09/12/2017 47176 9 RxNorm Tracy DEO Townsend null, [place] [facility] 8 15:27:10 336018 latex environme nt,medica tion other severe Not available 09/19/2017 45847 91 RxNorm pt state s react ion to latex condo ms, vagin al swell ing, cb-rm a Megan Armendariz [place], [place] [facility] 8 15:16:02 934855 Monistat Simple Therapy medicatio n swelling Not available Not available 06/04/2024 55416 72 RxNorm OLRENA [place], [place] [facility] 4 14:53:03 [...] Updated DateTime 08/21/2020 152.4 cm 37.3 kg/m2 54940.29 g 114/88 mm[Hg] Lata Bennett MA [facility] 08/21/2020 16:13:19 Date Recorded Body mass index (BMI) Body weight Systolic And Diastolic Provider Name and Address Organization Details Last Updated DateTime 04/06/2020 35.7 kg/m2 43594.4 g 114/78 mm[Hg] Megan Armendariz MA [facility] 04/06/2020 14:55:46 Date Recorded Body height Provider Name an d Address Organization Details Last Updated DateTime 04/06/2020 152.4 cm Cee March [place] 0 14:40:20 Date Recorded Body height Body mass index (BMI) Body weight Respiratory rate Body temperature Oxygen saturation Heart rate Systolic And Diastolic Provider Name and Address Organization Details Last Updated DateTime 4 152.4 cm 35.2 kg/m2 39080.1 3 g 18 /min 98.2 [degF] 98 % 106 /min 120/83 mm[Hg] LORENA Hawthorne [place] 4 15:05:25 Date Recorded Body height Body mass index (BMI) Body weight Systolic And Diastolic Provider Name and Address Organization Details Last Updated DateTime 06/08/2021 152.4 cm 34.6 kg/m2 83089.28 g 110/66 mm[Hg] Lata Bennett MA [facility] 06/08/2021 16:34:20 Date Recorded Body height Body mass index (BMI) Body weight Systolic And Diastolic Provider Name and Address Organization Details Last Updated DateTime 07/02/2020 152.4 cm 36.9 kg/m2 99690.96 g 110/68 mm[Hg] Nakia Chirinos MA [facility] 07/02/2020 16:21:17 Social History Question Answer Notes LastModified by Organizat ion Details LastModified Time Tobacco Smoking Status Never Smoker Tracy Townsend MA null, [facility] 01/19/2016 15:07:31 Do You Have An Advance Directive? No Information n ot available 04/21/2016 Is Blood Transfusion Acceptable In An Emergency? Yes Information not available 04/21/2016 What Is Your Level Of Caffeine Consumption? Occasional Information not available 09/20/2018 How Much Tobacco Do You Chew? None [email or web address] Information not available 01/19/2016 In The 14 [...] Type Of Diet Are You Following? REGULAR [email or web address] Information n ot available 01/19/2016 Which Illicit Or Recreational Drugs Have You Used? Denies Information not available 01/19/2016 Education 12 [email or web address] Information no t available 01/19/2016 Live Alone Or With Others? With Others Information not available 01/19/2016 What Was The Date Of Your Most Recent Tobacco Screening? 06/04/2024 Information not available 06/04/2024 How Many Children Do You Have? 0 [email or web address] Information not available 01/19/2016 Performs Monthly Self-breast Exam? No Information no t available 04/21/2016 Do You Have Any Pets? Yes 1 Dog Information not available 06/08/2021 Do You Use Protection During Sex? No Information not available 04/21/2016 What Is Your Relationship Status? Single [email or web address] Information not available 01/19/2016 Do You Use Your Seat Belt Or Car Seat Routinely? Yes Information not available 06/08/2021 Seat Belts Used Routinely Yes [email or web address] Information not available 01/19/2016 Are You Sexually Active? Yes Information not available 04/21/2016 Do You Have Smoke And Carbon Monoxide Detectors In Your Home? Yes Information not available 06/08/2021 Are You Passively Exposed To Smoke? No Information no t available 06/08/2021 How Much Tobacco Do You Smoke? No [email or web address] Information not available 01/19/2016 General Stress Level High Information not available 09/20/2018 Do You Use Sunscreen Routinely? Yes Information not available 04/21/2016 Has Tobacco Cessation Counseling Been Provided? Yes Information not available 06/04/2024 On What Date Was Tobacco Cessation Counseling Provided? 06/04/2024 Information not available 06/04/2024 How Many Years Have You Smoked Tobacco? 0 [email or web address] Information not available 01/19/2016 Sex: Unknown Functional [...] 07/03/2019 What is your exercise level? Occasional [email or web address] Information not available 01/19/2016 Mental Status None [...] Blood Transfusion N MRSA N Emphysema N Blood Clots N COPD [...] Sclerosis N Colon Polyps N Heart Attack ([place]) N Diabetes N Cardiomyopathy N Blood Transfusions [...] completed SURYA JAFFE MD Attn: Accounting[address] [place], [address], [place] [facility] 06/04/2024 15:48:20 COVID-19, mRNA, LNP-S, PF, 30 mcg/0.3 mL dose 1 completed SURYA JAFFE MD Attn: Accounting[address] [place], [address], [place] [facility] 06/04/2024 15:48:20 COVID-19, mRNA, LNP-S, PF, 30 mcg/0.3 mL dose 1 completed SURYA JAFFE MD Attn: Accounting,[address], [place], [place], [address] [place] [address], [place] [facility] 06/04/2024 15:48:20 COVID-19, mRNA, LNP-S, PF, 30 mcg/0.3 mL dose 1 completed SURYA JAFFE MD Attn: Accounting,[address], [place], [place], [address] [place] [address], [place] [facility] 06/04/2024 15:48:20 Tdap 3 completed SURYA JAFFE MD Attn: Accounting,[address], [place], [place], [address] [place] [address], [place] [facility] 06/04/2024 15:48:20 varicella 9 completed SURYA JAFFE MD Attn: Accounting,[address], [place], [place], [address] [place] [address], [place] [facility] 06/04/2024 15:48:20 OPV, trivalent 7 completed SURYA JAFFE MD Attn: Accounting,[address], [place], [place], [address] [place] [address], [place] [facility] 06/04/2024 15:48:20 OPV, trivalent 7 completed SURYA JAFFE MD Attn: Accounting,[address], [place], [place], [address] [place] [address], [place] [facility] 06/04/2024 15:48:20 DTP-Hib 7 completed SURYA JAFFE MD Attn: Accounting,[address], [place], [place], [address] [place] [address], [place] [facility] 06/04/2024 15:48:20 DTP-Hib 7 completed SURYA JAFFE MD Attn: Accounting,[address], [place], [place], [address] [place] [address], [place] [facility] 06/04/2024 15:48:20 DTP-Hib 7 completed SURYA JAFFE MD Attn: Accounting,[address] [facility], [place], [place], [address] [place] [address], [place] [facility] 06/04/2024 15:48:20 Hep B, adolescent or pediatric 7 completed SURYA JAFFE MD Attn: Accounting,[address] [facility], [place], [address] [place] [address], [place] [facility] 06/04/2024 15:48:20 Hep B, adolescent or pediatric 7 completed SURYA JAFFE MD Attn: Accounting,[address] [facility], [place], [place], [address] [place] [address], [place] [facility] 06/04/2024 15:48:20 Hep B, adolescent or pediatric 7 completed SURYA JAFFE MD Attn: Accounting,[address] [facility], [place], [place], [address] [place] [address], [place] [facility] 06/04/2024 15:48:20 Hep A, pediatric, unspecified formulation 9 completed SURYA JAFFE MD Attn: Accounting,[address] [facility], [place], [place], [address] [place] [address], [place] [facility] 06/04/2024 15:48:20 meningococcal C conjugate 9 completed SURYA JAFFE MD Attn: Accounting,[address] [facility], [place], [place], [address] [place] [address], [place] [facility] 06/04/2024 15:48:20 meningococcal MCV4P 5 completed SURYA JAFFE MD Attn: Accounting,[address] [facility], [place], [place], [address] [place] [address], [place] [facility] 06/04/2024 15:48:20 Influenza, split virus, quadrivalent, PF 2 completed SURYA JAFFE MD Attn: Accounting,[address] [facility], [place], [place], [address] [place] [address], [place] [facility] 06/04/2024 15:48:20 Influenza, split virus, quadrivalent, PF 3 completed SURYA JAFFE MD Attn: Accounting,204 [address] [place], [address], [facility] - [facility] 06/04/2024 15:48:20 HPV9 9 completed Not Available [facility] 08/10/2019 02:51:02 HPV9 9 completed Not Available [facility] 08/10/2019 02:46:06 HPV9 9 completed Not Available [facility] 08/10/2019 02:38:48 Past Encounters Encounter ID Performer Location Encounter Start Date Encounter Closed Date Diagnosis/Indication Diagnosis SNOMED-CT Code Diagnosis ICD10 Code Diagnosis IMO Codes Diagnosis Note [id number] [facility] [address] [place] [address] 57247-054 0 01/15/2016 14:11:14 01/15/2016 15:40:30 Family planning education 864213356 Z30.02 [id number] [facility] [address] [place] [address] [id number] 0 02/25/2016 11:12:21 02/29/2016 11:23:29 Family planning education 982670669 Z30.02 [id number] [facility] [address] [place] [address] [id number] 0 04/21/2016 14:49:52 04/27/2016 11:51:21 Initial prescription of oral contraception 806682324 Z30.661 [id number] MD Dudley Chandler ([employer]) [address] [place] [address] 89008-387 0 09/12/2017 14:44:25 09/12/2017 16:01:18 Family planning surveillance 204111382 Z30.09 Vaginismus due to non-psychogenic cause 935448546 N94.2 Dyspareunia 76039224 N94 .10 [id number] MD Dudley Chandler ([employer]) [address] [place] [address] [id number] 0 09/19/2017 14:38:41 09/19/2017 16:10:43 Insertion of intrauterine contraceptive device 89154766 Z30.430 Family rosa nning surveillance 689470674 Z30.09 [id number] [facility] C [facility] [address] [place] [address] 88274-921 0 11/16/2017 14:39:05 11/16/2017 15:55:31 Surveillance of intrauterine device contraception done 3172768220 44289 Z30.40 Family rosa nning surveillance 752824241 Z30.09 Exposure t o sexually transmissible disorder 170738077 Z20.2 Bacterial vaginosis 4197 52149 N76.0 [id number] Jose C Caba MD [facility] [facility]) [address] [place] [address] 98321-621 0 09/20/2018 11:47:15 09/20/2018 15:25:25 Family planning surveillance 845755056 Z30.09 Active or passive immunization 179525110 Z23 Surveillan ce of intrauterine device contraception done 8563174064 82098 Z30.40 Exposure t o sexually transmissible disorder 958158556 Z20.2 [id number] Jose C Caba MD [facility] [employer] [facility]) [address] [place] [address] 84872-031 0 11/29/2018 09:45:15 11/30/2018 09:29:59 Acute urinary tract infection 679947785 N39.0 Family rosa nning surveillance 642793855 Z30.09 [id number] Jose C Caba MD [facility] ([employer] [facility]) [address] [place] [address] 54944-654 0 02/21/2019 14:09:38 02/22/2019 13:03:00 Active or passive immunization 917030389 Z23 Family rosa nning surveillance 155731912 Z30.09 Gynecologi c examination 04358030 Z01.419 Z11.51 Surveillan ce of intrauterine device contraception done 9259379807 14243 Z30.40 Bacterial vaginosis 4197 73000 N76.0 Acute cervicitis 0807604 0 N72 Exposure t o sexually transmissible disorder 339018237 Z20.2 [id number] [facility] [address] [place] [address] [id number] 0 07/03/2019 14:43:04 07/03/2019 16:48:49 Family planning surveillance 052153503 Z30.09 Acute cervicitis 9076041 0 N72 Surveillan ce of intrauterine device contraception done 9062679747 79325 Z30.40 Urinary incontinence 165 012562 R32 Active or passive immunization 985925006 Z23 [id number] [facility] [address] [place] [address] 37825-412 0 03/10/2020 10:25:52 03/11/2020 07:14:27 Family planning surveillance 205468932 Z30.09 Gynecologi c examination 47256356 Z01.419 Z11.51 Candidiasis of vagina 72 192300 B37.3 Vulvitis 10459463 N76.2 Depressive disorder 3548 9007 F32.9 [id number] MD Dudley Chandler ([employer]) [address] [place] [address] [id number] 0 04/06/2020 14:15:18 04/07/2020 09:52:46 Depressive disorder 50539226 F32.9 Family rosa nning surveillance 877815451 Z30.09 Acne 16415698 L70.9 Anemia 729751355 D64.9 Surveillan ce of intrauterine device contraception done 0946833495 58804 Z30.40 Vaginitis 66505139 N76.0 Exposure t o sexually transmissible disorder 437287375 Z20.2 [id number] KAILEY ROBLES ([employer]END[employer]) [address] [place] [address] [id number] 0 07/02/2020 16:02:07 07/14/2020 13:44:13 Replacement of intrauterine contraceptive device 34885897 Z30.433 24yo F presents for IUD replacemen t. Aurora removed and Kyleena inserted without issue. Pt tolerated well. (See procedure note for more details.) Counseled pt on IUD and side effects. RTC in weeks for IUD check. [id number] KAILEY ROBLES ([employer]END[employer]) [address] [place] [address] [id number] 0 08/21/2020 15:38:54 08/22/2020 09:26:57 Surveillance of intrauterine device contraception done 2716796912 62039 Z30.40 Kyleena placed 07/02/20. Pt reports spotting twice per day for the last 3 weeks. IUD strings seen on exam. Advised spotting is common for the 1-3 months after IUD insertion. RTC if bleeding worsens/pe rsists. [id number] JOHANNA MENCHACA CK, DO [facility] ([employer] ATTENDANT) [address] [place] [address] 34391-709 0 06/08/2021 15:49:53 06/10/2021 10:05:33 Postcoital bleeding 16699901 N93.0 2 episodes of painless vaginal bleeding associated with intercours e. Pelvic deferred by patient. Will assess IUD position on pelvic US as above. Given IUD in situ, possible bleeding represents menses. Plans for pelvic with persistenc e. Dysuria 93287551 R30.9 smells like popcorn x 3 weeks on and offdysuria x2 daysUA reassuring today Lower abdominal pain 545 37833 R10.30 -Patient reports intermitte nt bilateral RLQ and LLQ abdominal pain localized superior and medial to ASIS's.-Pa in occasional ly associated with deep penetratio n with intercours e. Patient concerned about ovarian pathology- Pelvic US to assess for gynecologi c etiologies . Given localizati on, MSK etiology possible. [id number] SURYA JAFFE MD [place] [address] IM [address] [facility] [address] [place] [address] 06/04/2024 14:36:15 06/18/2024 09:48:25 Dysuria 15318897 R30.0 - painful urination for about a week, however negative dipstick and does not report back pain- differenti als include yeast/BV infection or STI/STD infxn Screening for malignant neoplasm of cervix 466213649 Z12.4 last pap smear in 2019, was WNLpap smear performed at this time, will follow up on results Abnormal u terine bleeding 9086482391 9100 N93.8 - pt complainin g of [...] - follow up based on results Adult [facility] examination 203102104 Z00.00 - 28 yo F well appearing female- problem list and medication s reviewed- not UTD on pap smear, consented to having one done at this time- recommende d initiation of vitamins Inflammati on of cervix 13942692 N72 cervix noted to be inflamed and [...] De Member ID Guarantor Name 06/08/2021 1 [facility] - DOS PRIOR TO 2021 (MEDICAID REPLACEMENT - HMO) Cee Aldridge [id number] Cee March 06/08/2021 2 [place] [employer] [employer] Cee Aldridge [id number] Cee March 02/25/2016 1 [facility] (PPO) [id number] Steven Aldridge [id number] Cee March 06/08/2021 1 [facility] (MEDICAID HMO) [id number] Cee Aldridge [id number] Cee March 05/22/2024 1 [facility] (MEDICAID HMO) [id number] Cee Aldridge [id number] Cee March 07/11/2024 1 [facility] Donal March [id number] Cee March 06/08/2021 1 [facility] (MEDICAID HMO) Cee Aldridge [id number] Cee March Notes Date Note Type Note Provider Name and Address Organization Details Recorded Time 04/06/2020 text/html OCP CheckReporte d by PatientHPIFor associated symptoms, patient reportsregular menses,no btb menses, andno side effects.ROS as noted in the HPI 24yo presenting for family planning discussion. Currently has Aurora and is interested in Kyleena IUD due to same size but longer duration. Patient complaining of hormonal acne from Aurora and would like to have it controlled. Pt planning for children in near future. Jose C Caba [place], [place] [facility] 04/06/2020 18:02:09 07/02/2020 text/html ROS as noted in the HPI 24yo presenting for IUD replacement. Currently has Aurora IUD but would like to switch to 5 year Kyleena. She has no complaints with IUD. No concerns today. Denies abnormal discharge, pelvic pain, n/v, fevers. LMP 07/02. KAILEY ROBLES Attn: Accounting,[address] [facility], [place], [address], [facility] - [facility] 07/09/2020 15:22:47 08/21/2020 text/html ROS as noted in the HPI 24yo nulligravida presenting for IUD check. She is currently using Kyleena, placed 07/02/20. LMP 07/02. She reports some spotting 2x/day for the last three weeks. Pt denies abdominal pain, fever, chills, discharge, or any other complaints at this time. KAILEY ROBLES Attn: Accounting,[address] [facility], [place], [address], [facility] - [facility] 08/24/2020 17:47:09 06/08/2021 text/html ROS as noted in the HPI Patient is a 25 year old who [...] No other complaints today Johanna Borjas [place] [facility] 06/09/2021 09:23:44 06/04/2024 text/html ROS as noted in the HPI 28yo F PMH of ADHD, depression & anxiety, IBS-C presents to clinic today to establish care ObGyn Hx [id number] Pap: 2019 was WNL PHQ-9: 12 Medicationsas [...] frequency SURYA JAFFE MD Attn: Accounting,204 [address] [place], [address], [place] [facility] 06/05/2024 16:42:45 OBGyn Episode Ob Episode Information Episode Created Date Number of Fetuses Patient Bloodtype Patient rh Status Prepregnancy Weight lbs Domestic Partner Domestic Partner Phone Father Name 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
[2025-06-21 13:28] LABS: Influenza A QL RT-PCR Negative (Negative); Influenza B QL RT-PCR Negative (Negative); RSV RNA, RT-PCR Negative (Negative); SARS-CoV-2 RNA PCR Negative (Negative)
--- NOTE | 2025-06-21 13:38 | ED_ITS ---
HPI - General Adult General Chief complaint: Upper Respiratory Infection Stated complaint: cough Time Seen by Provider: 06/21/25 11:19 Source: patient and family Mode of arrival: ambulatory Limitations: no limitations History of Present Illness HPI narrative: 29-year-old otherwise healthy here with the complaints of having a nonproductive cough for past 4 days denies any fever chills no sore throat the id she also complains of shortness of breath and has been using her daughter's nebulizer treatment. She states that she went to urgent care few days ago had COVID and influenza screen which were negative pain she also complained of mild bleeding her nose whenever she blows . Onset (ago): day(s) (4) Severity: moderate Relieving factors: none Exacerbating factors: none Related Data Home Medications ?Medication ?Instructions ?Recorded ?Confirmed ?Last Taken ?Type vits no.126-ferrous fum tablet PO 03/14/25 Unknown History 28 mg iron-folic acid 800 mcg tablet (Classic ) Allergies Allergy/AdvReac Type Severity Reaction Status Date / Time No Known Allergies Allergy Verified 04/18/25 10:46 Review of Systems Review of Systems: All systems reviewed & are unremarkable except as noted in HPI and below Constitutional: Constitutional: Reports no additional constitutional complaints Eyes: Eyes: Reports no additional eye complaints ENT: Reports system reviewed and no additional complaints, except as documented Cardiovascular: Cardiovascular: Reports no additional cardiovascular complaints Respiratory: Respiratory: Reports cough Gastrointestinal: Gastrointestinal: Reports no additional gastrointestinal complaints Musculoskeletal: Musculoskeletal: Reports no additional musculoskeletal complaints Integumentary/Breasts: Skin/Breast: Reports system reviewed and no additional complaints, except as docu [facility] Past Medical History Medical History (Reviewed 04/18/25 @ 10:47 by Angeli Townsend [facility]) Abnormal glucose tolerance in Vaginal discharge Fabian's disease GERD (gastroesophageal reflux disease) ADHD Anxiety Depression IBS (irritable bowel syndrome) Surgical History Surgical History History of tonsillectomy Family History Family History Father Adenocarcinoma Heart attack High cholesterol Grandparent Cerebrovascular accident Sibling High cholesterol Social History Social History Smoking status: Never smoker Alcohol intake: never Substance use: never Substance use type: does not use Lack of Transportation: No Lack of Food: Never True Current Housing: Decline to Answer Concerned About Future Housing: Decline to Answer Difficulty Paying Gas/Electric Bills: Decline to Answer Difficulty Paying for Meds: Decline to Answer Currently Unemployed: Decline to Answer Education: Decline to Answer Difficulty w/ Childcare or Family Care: Decline to Answer Living arrangements: other Additional living arrangements comments: Occupation/Education: 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 HEAD: Normocephalic, atraumatic. EYES: PERRLA and EOMI. ENT: Nares clear, no rhinorrhea or epistaxis. Mucous membranes moist. NECK: Supple. CHEST: Clear to auscultation. No respiratory distress. HEART: Regular rate and rhythm. No murmur heard. Normal peripheral pulses. EXTREMITIES: Normal range of motion. No edema. SKIN: Warm, dry, no rash. NEURO: No focal deficits. Alert and oriented x3. PSYCH: Normal mood and affect. Course Course Emergency Course: Notified patient about her lab work. Advised conservative management at this time no antibiotic is indicated. Vital Signs Vital signs: Vital Signs Pulse Rate 84 06/21/25 11:36 Respiratory Rate 18 06/21/25 11:36 Blood Pressure 134/73 06/21/25 11:36 Pulse Oximetry 98 06/21/25 11:36 Pulse Rate 84 06/21/25 11:36 Respiratory Rate 18 06/21/25 11:36 Blood Pressure 134/73 06/21/25 11:36 Pulse Oximetry 98 06/21/25 11:37 Oxygen Delivery Room Air 06/21/25 11:37 Medical Decision Making Vital Signs Vital Signs: Vital Signs Pulse Rate 84 06/21/25 11:36 Respiratory Rate 18 06/21/25 11:36 Blood Pressure 134/73 06/21/25 11:36 Pulse Oximetry 98 06/21/25 11:36 Pulse Rate 84 06/21/25 11:36 Respiratory Rate 18 06/21/25 11:36 Blood Pressure 134/73 06/21/25 11:36 Pulse Oximetry 98 06/21/25 11:37 Oxygen Delivery Room Air 06/21/25 11:37 Lab Data Labs: Lab Results 06/21/25 06/21/25 Range/Units 12:11 12:13 Influenza A (RT-PCR) Negative (Negative) Influenza B (RT-PCR) Negative (Negative) RSV (RT-PCR) Negative (Negative) SARS-CoV-2 RNA (RT-PCR) Pending Negative Discharge Plan Discharge Clinical Impression: Acute bronchitis, viral Patient Disposition: Home Condition: Stable Instructions: Viral Syndrome (ED) Patient Language: Nepalese Prescriptions: No Action Classic 28 mg iron- 800 mcg tablet PO [id number] [Fioricet] 50-300-40 mg capsule 1 cap PO Q6H PRN (Reason: pain) Qty: 30 0RF Follow-up/Referrals: Kieran,Bessy Jauregui APRN [Primary Care Provider, Unknown] Time of Disposition: 13:41
== END 2025-06-21 13:46 | disposition home or self-care (01) ==
PROVIDERS: Emergency Provider Family Medicine; PCP Nurse Practitioner
DX: J20.8 Acute bronchitis due to other specified organisms (principal); Z20.822 Contact with and (suspected) exposure to COVID-19; E06.3 Autoimmune thyroiditis; K21.9 Gastro-esophageal reflux disease without esophagitis; K58.9 Irritable bowel syndrome, unspecified
CPT/HCPCS: 87637; 99283